=== PATIENT | female | born 1950 | race Caucasian/White ===

== ENCOUNTER 2023-04-11 17:48 | Emergency (ER) | payer MEDICARE, OTHER, SELFPAY ==
[2023-04-11] VITALS (26 sets, daily range): BP systolic 155–212; BP diastolic 80–126; PULSE 60–75; RESP 9–30; TEMP 36.6; O2SAT 98–100; BMI 18.8
--- NOTE | 2023-04-11 17:56 | ECG_ITS ---
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
--- NOTE | 2023-04-11 18:31 | CT_ITS ---
The [address] [address] Patient Name: SYED CHAVEZ MRN: [id number] date: 1950 Sex: F Assigned Patient Location: ER Current Patient Location: .[facility] Accession/Order Number: [id number] Exam Date: 04/11/2023 19:08 Report Date: 04/11/2023 21:03 At the request of: JARON RAMOS Procedure: CT angio abdomen pelvis EXAM: CTA ABDOMEN AND PELVIS WITH IV CONTRAST DATE OF EXAM: 04/11/2023 7:08 PM EDT HISTORY: midline abdominal pain in a 72-year-old female with right lower quadrant pain right flank pain sternal pain which has subsided patient has had a left mastectomy with left breast reconstruction with cholecystectomy. COMPARISON: 05/09/2021 CT abdomen pelvis with contrast. TECHNIQUE: CTA examination of the abdomen and pelvis was performed with the intravenous administration of IV contrast. Multiphasic technique is used with arterial, venous phases. CT dose lowering techniques were used, to include: automated exposure control, adjustment for patient size, and/or use of iterative reconstruction. MIP images performed of the aorta. Contrast: 100 mL of Omnipaque 350. FINDINGS: CTA Aorta: Ascending aorta: Not in the Field of VIew Aortic arch: Not in the Field of VIew Descending thoracic aorta: Not in the Field of VIew Abdominal aorta: Normal. Celiac artery: Patent. SMA: There is a focal area of stenosis involving the proximal SMA seen on sagittal image 67 of series 8. However, the SMA otherwise appears fully patent. YASMIN: Patent. Renal arteries: Patent. Bilateral common iliacs: Normal. Vascular calcifications present throughout the course of the aorta. CTA Abdomen: Lines and Tubes: None Lower Chest: Normal Free Air: None. Liver: Normal Gallbladder: Removed Common Bile Duct: Normal Pancreas: Normal Spleen: Normal Adrenal Glands: Right: Normal Left: Normal Kidneys: Right Kidney: The right kidney demonstrates an extrarenal pelvis. Right Ureter: Normal. Left Kidney: Extrarenal pelvis. Left Ureter: Normal. GI Tract: Distal Esophagus: Normal. Stomach: Decompressed Small Bowel: Fluid-filled small bowel measures within normal limits. Appendix: Normal on coronal image 82 of series 7 Large Bowel: There is moderate retention of stool. Mesentery/Peritoneum: Normal Vasculature: Aorta: Normal. IVC: Normal. Sunny Vein: Normal. CTA Pelvis: Retroperitoneum: Normal Abdominal/Pelvic Wall: Normal Bladder: Decompressed Reproductive: Hysterectomy Musculoskeletal: There is approximately 5 mm of anterolisthesis of L5 onto S1. Age-appropriate degenerative changes are present. Free Fluid: None. IMPRESSION: 1. Fluid-filled small bowel. Please correlate for enteritis. 2. No aortic injury. 3. 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 Otherwise unremarkable CTA of the aorta and mesenteric vessels. 4. Hysterectomy. 5. Normal appendix. 6. Cholecystectomy. 7. Grade 1 anterolisthesis of L5 on S1.. Electronically authenticated by: JOHN HOUSTON Date: 04/11/2023 21:03
--- NOTE | 2023-04-11 18:32 | ED.ABDPAIN1 ---
Documented by User: Nitin Farooq 04/11/23 19:01 HPI - Abdominal Pain General Chief Complaint: Abdominal Pain Stated Complaint: ABDOMINAL PAIN Time Seen by Provider: 04/11/23 18:22 Source: patient Mode of arrival: ambulance History of Present Illness HPI narrative: patient experienced sudden onset, severe midline abdominal pain extending from her pubis to the upper mid abdomen about an hour ago. She was doubled up for about 10 minutes while EMS was called and arrived. On EMS arrival her pain suddenly decreased and by the time she arrived to our ED the pain had subsided. She had a similar episoe a few months ago and called [address] [place] had pulled over. The pain once again had subsided so she refused transport to [facility] ED. PMHx - HTN for which she sees cardiology Her BP is very high in the ED today Related Data Home Medications Medication Instructions Recorded Confirmed atorvastatin 80 mg tablet 80 mg PO DAILY 04/11/23 04/11/23 carvedilol 25 mg tablet 25 mg PO BID 04/11/23 04/11/23 hydralazine 50 mg tablet 50 mg PO BID 04/11/23 04/11/23 potassium chloride 20 mEq 20 meq PO QAM 04/11/23 04/11/23 tablet,extended release spironolactone 25 mg tablet 12.5 mg PO DAILY PRN blood pressure 04/11/23 04/11/23 Allergies Allergy/AdvReac Type Severity Reaction Status Date / Time Sulfa (Sulfonamide Allergy Severe Verified 04/11/23 17:50 Antibiotics) [facility] Medical History (Updated 04/11/23 @ 22:10 by Bert Littlejohn MD) Surgical History (Updated 04/11/23 @ 17:55 by Radha Mcfadden) Exam Narrative Exam Narrative: Nurses notes and vital signs reviewed and patient is not hypoxic. afebrile General: Well-appearing and in no apparent distress. Skin: Warm, dry, no pallor noted. No rash. Head: Normocephalic, atraumatic. Eye: Pupils are equal, round and EOMI. No scleral icterus. Cardiovascular: Regular Rate and Rhythm without murmur, gallop or rub. Respiratory: No accessory muscle use or respiratory distress. Lungs are clear to auscultation, no wheezing, rales or rhonchi Back: No CVA tenderness Musculoskeletal: normal ROM, no calf or popliteal tenderness, no lower extremity edema/swelling GI: Abdomen is soft, non-distended. Normal bowel sounds. No pulsatile mass appreciated. No tenderness to palpation. No rebound, guarding, or rigidity noted. Neurological: A&O x4. No cranial nerve dysfunction observed. No truncal ataxia. Moves all extremities. Sensation intact. Psychiatric: Cooperative and interactive. Normal mood and affect. Constitutional Vital Signs - 24 hr 04/11/23 17:50 04/11/23 17:56 04/11/23 17:57 Temperature 97.8 F Pulse Rate 61 70 Pulse Rate [Monitor] 62 Respiratory Rate 20 16 30 H Blood Pressure 198/110 H Blood Pressure [Right Arm] 185/80 H Pulse Oximetry 98 100 99 Oxygen Delivery Method Room Air 04/11/23 17:57 04/11/23 18:00 04/11/23 18:30 Temperature Pulse Rate 62 62 63 Pulse Rate [Monitor] Respiratory Rate 19 16 18 Blood Pressure 195/114 H 188/104 H Blood Pressure [Right Arm] Pulse Oximetry 99 Oxygen Delivery Method 04/11/23 18:43 04/11/23 18:30 04/11/23 18:45 Temperature Pulse Rate 60 64 Pulse Rate [Monitor] Respiratory Rate 21 17 Blood Pressure 188/104 H 188/104 H 183/105 H Blood Pressure [Right Arm] Pulse Oximetry 99 99 Oxygen Delivery Method 04/11/23 18:45 04/11/23 19:00 04/11/23 19:46 Temperature Pulse Rate 68 67 Pulse Rate [Monitor] Respiratory Rate 23 21 Blood Pressure 183/105 H 179/109 H 212/115 H Blood Pressure [Right Arm] Pulse Oximetry Oxygen Delivery Method 04/11/23 19:47 04/11/23 20:01 04/11/23 19:47 Temperature Pulse Rate 69 68 Pulse Rate [Monitor] Respiratory Rate 10 L 9 L Blood Pressure 206/101 H 188/100 H 206/101 H Blood Pressure [Right Arm] Pulse Oximetry Oxygen Delivery Method 04/11/23 20:00 04/11/23 20:06 04/11/23 20:10 Temperature Pulse Rate 65 63 61 Pulse Rate [Monitor] Respiratory Rate 13 13 16 Blood Pressure 188/100 H 201/97 H 205/126 H Blood Pressure [Right Arm] Pulse Oximetry Oxygen Delivery Method 04/11/23 20:28 04/11/23 20:10 04/11/23 20:31 Temperature Pulse Rate 74 66 Pulse Rate [Monitor] Respiratory Rate 18 18 Blood Pressure 205/126 H 188/98 H Blood Pressure [Right Arm] 208/90 H Pulse Oximetry Oxygen Delivery Method 04/11/23 20:40 04/11/23 20:50 04/11/23 21:00 Temperature Pulse Rate 71 69 66 Pulse Rate [Monitor] Respiratory Rate 16 18 15 Blood Pressure 193/96 H 197/93 H 196/104 H Blood Pressure [Right Arm] Pulse Oximetry Oxygen Delivery Method 04/11/23 21:33 04/11/23 21:00 04/11/23 21:31 Temperature Pulse Rate 69 Pulse Rate [Monitor] Respiratory Rate Blood Pressure 202/100 H 196/104 H Blood Pressure [Right Arm] Pulse Oximetry Oxygen Delivery Method 04/11/23 21:34 04/11/23 21:34 04/11/23 21:34 Temperature Pulse Rate 69 63 75 Pulse Rate [Monitor] Respiratory Rate 15 16 17 Blood Pressure 202/100 H 202/100 H Blood Pressure [Right Arm] Pulse Oximetry Oxygen Delivery Method 04/11/23 21:40 04/11/23 21:40 04/11/23 21:50 Temperature Pulse Rate 65 65 67 Pulse Rate [Monitor] Respiratory Rate 15 15 22 Blood Pressure 177/94 H 177/94 H 177/91 H Blood Pressure [Right Arm] Pulse Oximetry Oxygen Delivery Method Course Vital Signs Vital signs: Vital Signs Temperature 97.8 F 04/11/23 17:50 Pulse Rate 62 04/11/23 17:50 Respiratory Rate 20 04/11/23 17:50 Blood Pressure 185/80 H 04/11/23 17:50 Pulse Oximetry 98 04/11/23 17:50 Oxygen Delivery Method Room Air 04/11/23 17:50 Temperature 97.8 F 04/11/23 17:50 Pulse Rate 67 04/11/23 21:50 Respiratory Rate 22 04/11/23 21:50 Blood Pressure 177/91 H 04/11/23 21:50 Pulse Oximetry 99 04/11/23 18:45 Oxygen Delivery Method Room Air 04/11/23 17:50 MDM - Abdominal Pain MDM Narrative Medical decision making narrative: patient's blood pressure is very high. Peripheral IV was ordered to be established with the patient receive IV Vasotec. I also want her to go for CTA scanning of the abdomen & pelvis. blood was also drawn for testing. CBC normal. CMP notable for slightly increased BUN and Cr, otherwise normal. CTA pending. Patient signed out to Dr Littlejohn at 7pm shift change. Lab Data Attestation: I reviewed the patient's lab results. Labs: Lab Results 04/11/23 Range/Units 18:00 WBC 5.6 (4.0-11.0) 10^3/uL RBC 4.01 L (4.20-5.40) 10^6/uL Hgb 12.0 (12.0-16.0) g/dL Hct 36.6 (36.0-48.0) % MCV 91.3 (81.0-99.0) fL MCH 29.9 (26.7-34.0) pg MCHC 32.8 (29.9-35.2) g/dL RDW 13.2 (11.0-15.0) % Plt Count 192 (150-450) 10^3/uL MPV 10.8 (9.5-13.5) fL Neut % (Auto) 54.0 (43.0-75.0) % Lymph % (Auto) 33.9 (20.5-60.0) % [place] % (Auto) 8.9 (1.7-12.0) % Eos % (Auto) 2.3 (0.9-7.0) % Baso % (Auto) 0.5 (0.2-2.0) % Neut # (Auto) 3.0 (1.4-6.5) 10^3/uL Lymph # (Auto) 1.9 (1.2-3.8) 10^3/uL [place] # (Auto) 0.5 (0.3-0.8) 10^3/uL Eos # (Auto) 0.1 (0.0-0.7) 10^3/uL Baso # (Auto) 0.0 (0.0-0.1) 10^3/uL Abs Immat Gran (auto) 0.02 (0.00-0.03) 10^3/uL Imm/Tot Granulo (auto) 0.4 (0.0-0.5) % Sodium 143 (136-145) mmol/L Potassium 3.9 (3.5-5.1) mmol/L Chloride 108 H (98-107) mmol/L Carbon Dioxide 25.1 (21.0-32.0) mmol/L Anion Gap 13.8 BUN 21.0 H (7.0-18.0) mg/dL Creatinine 1.15 H (0.55-1.02) mg/dL Est GFR ( Amer) 56 L (>=60) Est GFR (Non-Af Amer) 47 L (>=60) BUN/Creatinine Ratio 18.3 Glucose 86 (74-106) mg/dL Calcium 8.9 (8.5-10.1) mg/dL Total Bilirubin 0.5 (0.2-1.0) mg/dL AST 70 H (15-37) U/L ALT 55 (14-59) U/L Alkaline Phosphatase 82 (46-116) U/L Troponin I High Sens 4.9 (4.0-51.3) pg/mL Total Protein 7.1 (6.4-8.2) g/dL Albumin 3.8 (3.4-5.0) g/dL Globulin 3.3 g/dL Albumin/Globulin Ratio 1.2 Lipase 90.0 (73.0-393.0) U/L ECG Data Interpretation: EKG interpretation: Emergency Department physician interpretation. Normal sinus rhythm at 60bpm. Normal axis, normal intervals and non-specific ST changes without ST segment elevation or deep depression. Discharge Plan Discharge Chief Complaint: Abdominal Pain Clinical Impression: Abdominal pain, Hypertension Patient Disposition: Home, Self-Care Prescriptions / Home Meds: No Action atorvastatin 80 mg tablet 80 mg PO DAILY carvedilol 25 mg tablet 25 mg PO BID hydralazine 50 mg tablet 50 mg PO BID potassium chloride 20 mEq tablet extended release 20 meq PO QAM spironolactone 25 mg tablet 12.5 mg PO DAILY PRN (Reason: blood pressure) Instructions: Abdominal Pain (ED), Hypertension (ED) Additional Instructions: have your blood pressure rechecked tomorrow and follow up with your doctor next week for recheck Stand Alone Forms: Portal Instructions Referrals: Cele Frost MD [Primary Care Provider] - 1 week Documented by User: Bert Littlejohn MD 04/11/23 22:10 HPI - Abdominal Pain General Chief Complaint: Abdominal Pain Stated Complaint: ABDOMINAL PAIN Time Seen by Provider: 04/11/23 18:22 Related Data Home Medications Medication Instructions Recorded Confirmed atorvastatin 80 mg tablet 80 mg PO DAILY 04/11/23 04/11/23 carvedilol 25 mg tablet 25 mg PO BID 04/11/23 04/11/23 hydralazine 50 mg tablet 50 mg PO BID 04/11/23 04/11/23 potassium chloride 20 mEq 20 meq PO QAM 04/11/23 04/11/23 tablet,extended release spironolactone 25 mg tablet 12.5 mg PO DAILY PRN blood pressure 04/11/23 04/11/23 Allergies Allergy/AdvReac Type Severity Reaction Status Date / Time Sulfa (Sulfonamide Allergy Severe Verified 04/11/23 17:50 Antibiotics) [facility] Medical History (Updated 04/11/23 @ 22:10 by Bert Littlejohn MD) Surgical History (Updated 04/11/23 @ 17:55 by Radha Mcfadden) Exam Constitutional Vital Signs - 24 hr 04/11/23 17:50 04/11/23 17:56 04/11/23 17:57 Temperature 97.8 F Pulse Rate 61 70 Pulse Rate [Monitor] 62 Respiratory Rate 20 16 30 H Blood Pressure 198/110 H Blood Pressure [Right Arm] 185/80 H Pulse Oximetry 98 100 99 Oxygen Delivery Method Room Air 04/11/23 17:57 04/11/23 18:00 04/11/23 18:30 Temperature Pulse Rate 62 62 63 Pulse Rate [Monitor] Respiratory Rate 19 16 18 Blood Pressure 195/114 H 188/104 H Blood Pressure [Right Arm] Pulse Oximetry 99 Oxygen Delivery Method 04/11/23 18:43 04/11/23 18:30 04/11/23 18:45 Temperature Pulse Rate 60 64 Pulse Rate [Monitor] Respiratory Rate 21 17 Blood Pressure 188/104 H 188/104 H 183/105 H Blood Pressure [Right Arm] Pulse Oximetry 99 99 Oxygen Delivery Method 04/11/23 18:45 04/11/23 19:00 04/11/23 19:46 Temperature Pulse Rate 68 67 Pulse Rate [Monitor] Respiratory Rate 23 21 Blood Pressure 183/105 H 179/109 H 212/115 H Blood Pressure [Right Arm] Pulse Oximetry Oxygen Delivery Method 04/11/23 19:47 04/11/23 20:01 04/11/23 19:47 Temperature Pulse Rate 69 68 Pulse Rate [Monitor] Respiratory Rate 10 L 9 L Blood Pressure 206/101 H 188/100 H 206/101 H Blood Pressure [Right Arm] Pulse Oximetry Oxygen Delivery Method 04/11/23 20:00 04/11/23 20:06 04/11/23 20:10 Temperature Pulse Rate 65 63 61 Pulse Rate [Monitor] Respiratory Rate 13 13 16 Blood Pressure 188/100 H 201/97 H 205/126 H Blood Pressure [Right Arm] Pulse Oximetry Oxygen Delivery Method 04/11/23 20:28 04/11/23 20:10 04/11/23 20:31 Temperature Pulse Rate 74 66 Pulse Rate [Monitor] Respiratory Rate 18 18 Blood Pressure 205/126 H 188/98 H Blood Pressure [Right Arm] 208/90 H Pulse Oximetry Oxygen Delivery Method 04/11/23 20:40 04/11/23 20:50 04/11/23 21:00 Temperature Pulse Rate 71 69 66 Pulse Rate [Monitor] Respiratory Rate 16 18 15 Blood Pressure 193/96 H 197/93 H 196/104 H Blood Pressure [Right Arm] Pulse Oximetry Oxygen Delivery Method 04/11/23 21:33 04/11/23 21:00 04/11/23 21:31 Temperature Pulse Rate 69 Pulse Rate [Monitor] Respiratory Rate Blood Pressure 202/100 H 196/104 H Blood Pressure [Right Arm] Pulse Oximetry Oxygen Delivery Method 04/11/23 21:34 04/11/23 21:34 04/11/23 21:34 Temperature Pulse Rate 69 63 75 Pulse Rate [Monitor] Respiratory Rate 15 16 17 Blood Pressure 202/100 H 202/100 H Blood Pressure [Right Arm] Pulse Oximetry Oxygen Delivery Method 04/11/23 21:40 04/11/23 21:40 04/11/23 21:50 Temperature Pulse Rate 65 65 67 Pulse Rate [Monitor] Respiratory Rate 15 15 22 Blood Pressure 177/94 H 177/94 H 177/91 H Blood Pressure [Right Arm] Pulse Oximetry Oxygen Delivery Method Course Vital Signs Vital signs: Vital Signs Temperature 97.8 F 04/11/23 17:50 Pulse Rate 62 04/11/23 17:50 Respiratory Rate 20 04/11/23 17:50 Blood Pressure 185/80 H 04/11/23 17:50 Pulse Oximetry 98 04/11/23 17:50 Oxygen Delivery Method Room Air 04/11/23 17:50 Temperature 97.8 F 04/11/23 17:50 Pulse Rate 67 04/11/23 21:50 Respiratory Rate 22 04/11/23 21:50 Blood Pressure 177/91 H 04/11/23 21:50 Pulse Oximetry 99 04/11/23 18:45 Oxygen Delivery Method Room Air 04/11/23 17:50 MDM - Abdominal Pain MDM Narrative Medical decision making narrative: patient's blood pressure is very high. Peripheral IV was ordered to be established with the patient receive IV Vasotec. I also want her to go for CTA scanning of the abdomen & pelvis. blood was also drawn for testing. CBC normal. CMP notable for slightly increased BUN and Cr, otherwise normal. CTA pending. Patient signed out to Dr Littlejohn at 7pm shift change. care transferred at change of shift. CTA abdomen pending. CTA return without findings to explain her acute abdominal pain that resolved. Demonstrated mod. constipation and proximal stenosis of SMA but otherwise free flow through the artery and no finding of SMA syndrome. Patient BP treated with additional doses of Hydralazine. Patient's BP is now 170 systolic. she remains asymptomatic and will take her regular BP meds tonight when she gets home Lab Data Labs: Lab Results 04/11/23 Range/Units 18:00 WBC 5.6 (4.0-11.0) 10^3/uL RBC 4.01 L (4.20-5.40) 10^6/uL Hgb 12.0 (12.0-16.0) g/dL Hct 36.6 (36.0-48.0) % MCV 91.3 (81.0-99.0) fL MCH 29.9 (26.7-34.0) pg MCHC 32.8 (29.9-35.2) g/dL RDW 13.2 (11.0-15.0) % Plt Count 192 (150-450) 10^3/uL MPV 10.8 (9.5-13.5) fL Neut % (Auto) 54.0 (43.0-75.0) % Lymph % (Auto) 33.9 (20.5-60.0) % [place] % (Auto) 8.9 (1.7-12.0) % Eos % (Auto) 2.3 (0.9-7.0) % Baso % (Auto) 0.5 (0.2-2.0) % Neut # (Auto) 3.0 (1.4-6.5) 10^3/uL Lymph # (Auto) 1.9 (1.2-3.8) 10^3/uL [place] # (Auto) 0.5 (0.3-0.8) 10^3/uL Eos # (Auto) 0.1 (0.0-0.7) 10^3/uL Baso # (Auto) 0.0 (0.0-0.1) 10^3/uL Abs Immat Gran (auto) 0.02 (0.00-0.03) 10^3/uL Imm/Tot Granulo (auto) 0.4 (0.0-0.5) % Sodium 143 (136-145) mmol/L Potassium 3.9 (3.5-5.1) mmol/L Chloride 108 H (98-107) mmol/L Carbon Dioxide 25.1 (21.0-32.0) mmol/L Anion Gap 13.8 BUN 21.0 H (7.0-18.0) mg/dL Creatinine 1.15 H (0.55-1.02) mg/dL Est GFR ( Amer) 56 L (>=60) Est GFR (Non-Af Amer) 47 L (>=60) BUN/Creatinine Ratio 18.3 Glucose 86 (74-106) mg/dL Calcium 8.9 (8.5-10.1) mg/dL Total Bilirubin 0.5 (0.2-1.0) mg/dL AST 70 H (15-37) U/L ALT 55 (14-59) U/L Alkaline Phosphatase 82 (46-116) U/L Troponin I High Sens 4.9 (4.0-51.3) pg/mL Total Protein 7.1 (6.4-8.2) g/dL Albumin 3.8 (3.4-5.0) g/dL Globulin 3.3 g/dL Albumin/Globulin Ratio 1.2 Lipase 90.0 (73.0-393.0) U/L Discharge Plan Discharge Chief Complaint: Abdominal Pain Clinical Impression: Abdominal pain, Hypertension Patient Disposition: Home, Self-Care Prescriptions / Home Meds: No Action atorvastatin 80 mg tablet 80 mg PO DAILY carvedilol 25 mg tablet 25 mg PO BID hydralazine 50 mg tablet 50 mg PO BID potassium chloride 20 mEq tablet extended release 20 meq PO QAM spironolactone 25 mg tablet 12.5 mg PO DAILY PRN (Reason: blood pressure) Instructions: Abdominal Pain (ED), Hypertension (ED) Additional Instructions: have your blood pressure rechecked tomorrow and follow up with your doctor next week for recheck Stand Alone Forms: Portal Instructions Referrals: Cele Frost MD [Primary Care Provider] - 1 week
[2023-04-11 18:40] LABS: Basophils Percent Auto 0.5 % (0.2-2.0); Eosinophils Absolute Auto 0.1 10^3/uL (0.0-0.7); Eosinophils Percent Auto 2.3 % (0.9-7.0); Hematocrit 36.6 % (36.0-48.0); Immature Granulocytes Abs Auto 0.02 10^3/uL (0.00-0.03); Immature Granulocytes Pct Auto 0.4 % (0.0-0.5); Lymphocytes Absolute Auto 1.9 10^3/uL (1.2-3.8); Lymphocytes Percent Auto 33.9 % (20.5-60.0); Mean Corpuscular HGB Conc 32.8 g/dL (29.9-35.2); Mean Corpuscular Hemoglobin 29.9 pg (26.7-34.0); Mean Corpuscular Volume 91.3 fL (81.0-99.0); Mean Platelet Volume 10.8 fL (9.5-13.5); Monocytes Absolute Auto 0.5 10^3/uL (0.3-0.8); Monocytes Percent Auto 8.9 % (1.7-12.0); Platelet Count 192 10^3/uL (150-450); Red Blood Count 4.01 10^6/uL (4.20-5.40); Red Cell Distribution Width 13.2 % (11.0-15.0); White Blood Count 5.6 10^3/uL (4.0-11.0)
[2023-04-11] MEDS: ENALAPRILAT DIHYDRATE 1.25 MG/ML VIAL IV (18:43)
[2023-04-11 18:52] LABS: Alanine Aminotransferase 55 U/L (14-59); Albumin Globulin Ratio 1.2; Albumin Level 3.8 g/dL (3.4-5.0); Alkaline Phosphatase 82 U/L (46-116); Anion Gap 13.8; Aspartate Amino Transferase 70 U/L (15-37); BUN Creatinine Ratio 18.3; Bilirubin Total 0.5 mg/dL (0.2-1.0); Calcium 8.9 mg/dL (8.5-10.1); Carbon Dioxide 25.1 mmol/L (21.0-32.0); Chloride 108 mmol/L (98-107); Estimated GFR (African America 56 (>=60); Estimated GFR (Non-African Ame 47 (>=60); Globulin 3.3 g/dL; Glucose 86 mg/dL (74-106); Potassium 3.9 mmol/L (3.5-5.1); Sodium 143 mmol/L (136-145); Total Protein 7.1 g/dL (6.4-8.2)
[2023-04-11 19:25] LABS: Troponin I High Sensitivity 4.9 pg/mL (4.0-51.3)
[2023-04-11] MEDS: HYDRALAZINE HCL 20 MG/ML VIAL 5 MG IVP ×2 (20:01→21:33)
[2023-04-11] MEDS: ACETAMINOPHEN 500 MG TABLET 1000 MG PO (21:32)
== END 2023-04-11 22:29 | disposition home or self-care (01) ==
PROVIDERS: Emergency Medicine; Emergency Provider Internal Medicine; PCP Family Medicine
DX: R10.9 Unspecified abdominal pain (principal); I10 Essential (primary) hypertension; Z79.899 Other long term (current) drug therapy
CPT/HCPCS: 36415; 74174; 80053; 83690; 84484; 85025; 93005; 96374; 96375; 96376; 99285; Q9967

== ENCOUNTER 2023-05-26 11:54 | Outpatient (OUT) | payer MEDICARE, OTHER, SELFPAY ==
[2023-05-26 12:20] LABS: Basophils Percent Auto 0.6 % (0.2-2.0); Eosinophils Absolute Auto 0.2 10^3/uL (0.0-0.7); Eosinophils Percent Auto 2.9 % (0.9-7.0); Hematocrit 38.5 % (36.0-48.0); Hemoglobin 12.4 g/dL (12.0-16.0); Immature Granulocytes Abs Auto 0.02 10^3/uL (0.00-0.03); Immature Granulocytes Pct Auto 0.3 % (0.0-0.5); Lymphocytes Absolute Auto 1.6 10^3/uL (1.2-3.8); Lymphocytes Percent Auto 25.4 % (20.5-60.0); Mean Corpuscular HGB Conc 32.2 g/dL (29.9-35.2); Mean Corpuscular Hemoglobin 29.5 pg (26.7-34.0); Mean Corpuscular Volume 91.7 fL (81.0-99.0); Mean Platelet Volume 10.1 fL (9.5-13.5); Monocytes Absolute Auto 0.4 10^3/uL (0.3-0.8); Monocytes Percent Auto 6.2 % (1.7-12.0); Neutrophils Percent Auto 64.6 % (43.0-75.0); Platelet Count 202 10^3/uL (150-450); Red Cell Distribution Width 13.2 % (11.0-15.0); White Blood Count 6.3 10^3/uL (4.0-11.0)
[2023-05-26 13:11] LABS: Free T4 1.01 ng/dL (0.76-1.46)
[2023-05-26 13:17] LABS: Anion Gap 12.6; BUN Creatinine Ratio 18.3; Calcium 8.8 mg/dL (8.5-10.1); Carbon Dioxide 27.7 mmol/L (21.0-32.0); Chloride 106 mmol/L (98-107); Estimated GFR (African America 56 (>=60); Estimated GFR (Non-African Ame 47 (>=60); Glucose 114 mg/dL (74-106); Potassium 4.3 mmol/L (3.5-5.1); Sodium 142 mmol/L (136-145)
== END 2023-05-26 11:55 | disposition home or self-care (01) ==
LOC: LAB 11:56
PROVIDERS: PCP Family Medicine; Visit Provider Family Medicine
DX: I10 Essential (primary) hypertension (principal); R53.83 Other fatigue
CPT/HCPCS: 36415; 80048; 84439; 84443; 85025

== ENCOUNTER 2023-07-27 12:41 | Outpatient (OUT) | payer MEDICARE, OTHER, SELFPAY ==
[2023-07-27 13:00] LABS: Hematocrit 37.9 % (36.0-48.0); Hemoglobin 12.4 g/dL (12.0-16.0); Mean Corpuscular HGB Conc 32.7 g/dL (29.9-35.2); Mean Corpuscular Hemoglobin 30.2 pg (26.7-34.0); Mean Corpuscular Volume 92.2 fL (81.0-99.0); Mean Platelet Volume 9.7 fL (9.5-13.5); Platelet Count 203 10^3/uL (150-450); Red Blood Count 4.11 10^6/uL (4.20-5.40); Red Cell Distribution Width 12.8 % (11.0-15.0); White Blood Count 4.6 10^3/uL (4.0-11.0)
[2023-07-27 14:05] LABS: Alanine Aminotransferase 37 U/L (14-59); Albumin Globulin Ratio 1.2; Albumin Level 3.9 g/dL (3.4-5.0); Alkaline Phosphatase 61 U/L (46-116); Anion Gap 10.3; Aspartate Amino Transferase 23 U/L (15-37); Bilirubin Total 0.6 mg/dL (0.2-1.0); Calcium 9.2 mg/dL (8.5-10.1); Carbon Dioxide 28.9 mmol/L (21.0-32.0); Chloride 106 mmol/L (98-107); Estimated GFR (African America >60 (>=60); Estimated GFR (Non-African Ame 50 (>=60); Globulin 3.3 g/dL; Glucose 93 mg/dL (74-106); Magnesium 1.9 mg/dL (1.8-2.4); Phosphorus 3.5 mg/dL (2.6-4.7); Potassium 4.2 mmol/L (3.5-5.1); Sodium 141 mmol/L (136-145); Total Protein 7.2 g/dL (6.4-8.2)
== END 2023-07-27 12:42 | disposition home or self-care (01) ==
LOC: LAB 12:43
PROVIDERS: PCP Family Medicine; Visit Provider Internal Medicine Nephrology
DX: I12.9 Hypertensive chronic kidney disease with stage 1 through stage 4 chronic kidney disease, or unspecified chronic kidney disease (principal); N18.31 Chronic kidney disease, stage 3a; E26.9 Hyperaldosteronism, unspecified; E87.6 Hypokalemia; E55.9 Vitamin D deficiency, unspecified; E83.42 Hypomagnesemia; E78.5 Hyperlipidemia, unspecified
CPT/HCPCS: 36415; 80053; 82306; 83735; 84100; 85027

== ENCOUNTER 2023-08-03 08:58 | Outpatient (OUT) | payer MEDICARE, OTHER, SELFPAY ==
--- NOTE | 2023-08-03 09:05 | US_ITS ---
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 TECHNIQUE: Ultrasound examination was performed of the kidneys and bladder. FINDINGS: RIGHT KIDNEY: Dilated renal pelvis and lower pole calyces. A few small nonobstructing stones. Height: 3.4 cm Length: 10.9 cm Width: 4.4 cm Right Renal Artery Proximal PSV: 87.1 cm/s Proximal EDV: 20.4 cm/s Mid PSV: 87.1 cm/s Mid EDV: 28.2 cm/s Distal PSV: 68.5 cm/s Distal EDV: 24.6 cm/s Right Arcuate Artery Superior PSV: 51.9 cm/s Superior EDV: Middle PSV: Middle EDV: Inferior PSV: Inferior EDV: LEFT KIDNEY: Contains 2 separate benign-appearing cysts. Height: 5.4 cm Length: 10.0 cm Width: 5.0 cm Left Renal Artery Proximal PSV: 97.0 cm/s Proximal EDV: 15.8 cm/s Mid PSV: 92.6 cm/s Mid EDV: 22.4 cm/s Distal PSV: 94.8 cm/s Distal EDV: 22.4 cm/s Left Arcuate Artery Superior PSV: 27.2 cm/s Superior EDV: 12.4 cm/s Middle PSV: 43.8 cm/s Middle EDV: 15.9 cm/s Inferior PSV: 31.6 cm/s Inferior EDV: 13.3 cm/s Aorta PSV: 102 cm/s Aorta EDV: 24 cm/s OTHER: Unremarkable urinary bladder. US/US renal doppler IMPRESSION: 1. Moderate right hydronephrosis favoring chronic rather than acute. 2. Nonobstructing right nephrolithiasis. 3. Incidental benign-appearing left renal cysts. 4. Bilateral renal arterial flow as detailed above; no significantly elevated resistive index. Electronically authenticated by: BUCK AGUIRRE Date: 08/06/2023 11:43
== END 2023-08-03 08:59 | disposition home or self-care (01) ==
LOC: US 08:58
PROVIDERS: PCP Family Medicine; Visit Provider Internal Medicine Nephrology
DX: E26.9 Hyperaldosteronism, unspecified (principal); N28.1 Cyst of kidney, acquired; N13.30 Unspecified hydronephrosis; N20.0 Calculus of kidney; N18.30 Chronic kidney disease, stage 3 unspecified
CPT/HCPCS: 76775; 93975

== ENCOUNTER 2023-08-24 10:11 | Outpatient (OUT) | payer MEDICARE, OTHER, SELFPAY ==
--- NOTE | 2023-08-24 10:18 | CT_ITS ---
The [address] [address] Patient Name: SYED CHAVEZ MRN: [id number] date: 1950 Sex: F Assigned Patient Location: CT Current Patient Location: CT Accession/Order Number: [id number] Exam Date: 08/24/2023 10:30 Report Date: 08/24/2023 11:35 At the request of: BEN ANGEL Procedure: CT abdomen pelvis wo con CT abdomen pelvis wo con, 08/24/2023 10:30 AM EST INDICATION: Right Hydronephrosis COMPARISON: Prior CT of the abdomen dated 04/11/2023 and ultrasound dated 08/03/2023 TECHNIQUE: Axial images of the abdomen were obtained after the administration of IV contrast. Multiplanar reformatted images were generated and reviewed as needed. Dose reduction techniques were achieved by using automated exposure control and/or adjustment of mA and/or kV according to patient size and/or use of iterative reconstruction technique. FINDINGS: Lungs: The base of lungs is clear. No pleural effusion is noted. Liver and gallbladder: The liver is unremarkable. There is status post cholecystectomy. No enlargement of intra or extrahepatic biliary ducts. Genitourinary system: Right extrarenal pelvis. No hydronephrosis. Hypodense lesion within the midpole of the left kidney likely a cyst. No nephrolithiasis. No abnormality of the urinary bladder is noted. There is status post hysterectomy. Other solid abdominal organs: adrenal glands, pancreas, and spleen are unremarkable. Aorta: The infrarenal abdominal aorta is nonaneurysmal. Free fluid: There is no free fluid in the abdomen pelvis. Lymph node: No lymph node enlargement by size criteria is noted. Stomach and Bowel: No abnormality of the stomach is noted. No abnormality of small or large bowel is noted. Bone: There is no suspicious osteolytic or osteoblastic lesion. Grade 1 anterolisthesis of L5 on S1. Lower lumbar spine and SI joint degenerative changes. CT/CT abdomen pelvis wo con IMPRESSION: Right extrarenal pelvis. No hydronephrosis is noted. Electronically authenticated by: RAMIRO BLANCO Date: 08/24/2023 11:35
== END 2023-08-24 10:12 | disposition home or self-care (01) ==
LOC: CT 10:11
PROVIDERS: PCP Family Medicine; Visit Provider Urology
DX: N13.30 Unspecified hydronephrosis (principal)
CPT/HCPCS: 74176

== ENCOUNTER 2023-12-28 12:39 | Outpatient (OUT) | payer MEDICARE, OTHER, SELFPAY ==
--- NOTE | 2023-12-28 12:43 | MR_ITS ---
[address] [address] Patient Name: SYED CHAVEZ MRN: [id number] date: 1950 Sex: F Assigned Patient Location: MRI Current Patient Location: Accession/Order Number: [id number] Exam Date: 12/28/2023 12:58 Report Date: 12/29/2023 08:16 At the request of: LON MILLER Procedure: MR angio head wo con EXAM: MR angio head wo con CLINICAL INDICATION: Family History Cerebral Hemorrhage, Headache COMPARISON: None TECHNIQUE/PROTOCOL: 3D time of flight non contrast brain MRA performed. 3D reconstructions were performed to evaluate vascular anatomy. Carotid stenosis is reported according to NASCET criteria. Additional sagittal T1, DWI, axial GRE, axial T2, and axial FLAIR images were obtained. FINDINGS: Intracranial ICAs: Patent bilaterally from the skull base to the carotid terminus. MCAs: Normal bilaterally. ACAs: Normal bilaterally. P-Comms: Not visualized bilaterally. Vertebral arteries: Normal to the confluence with the basilar artery. Basilar artery: Normal. ceramics engineer: Normal bilaterally. Other: No restricted diffusion, midline shift, hydrocephalus, extra-axial fluid collections, or other mass effect. Normal midline structures. Multiple scattered small hyperintense T2/FLAIR periventricular and subcortical white matter foci likely reflect chronic microvascular angiopathic changes. 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 No surrounding vasogenic edema. Small suspected adjacent developmental venous anomaly. Mild scattered paranasal sinus mucosal thickening. Trace right mastoid effusion. MR/MR angio head wo con IMPRESSION: 1. No large vessel arterial occlusion, high-grade narrowing, or substantial luminal irregularity in the head. No intracranial aneurysm. 2. 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 No surrounding vasogenic edema. 3. No acute intracranial abnormality. Electronically authenticated by: YUDI SMITH Date: 12/29/2023 08:16
== END 2023-12-28 12:40 | disposition home or self-care (01) ==
LOC: MRI 12:39
PROVIDERS: PCP Family Medicine; Visit Provider Family Medicine
DX: R51.9 Headache, unspecified (principal); Z82.3 Family history of stroke; Z86.79 Personal history of other diseases of the circulatory system
CPT/HCPCS: 70544

== ENCOUNTER 2023-12-30 07:50 | Outpatient (OUT) | payer MEDICARE, OTHER, SELFPAY ==
--- OUTSIDE RECORDS SUMMARY | 2023-12-30 07:53 | XMS_ITS | CCD ---
Author Organization [facility] Care Team Providers Care Continuity Person Name Role Phone PHYSICIAN, DEFAULT Admitting Unavailable PHYSICIAN, DEFAULT Attending Unavailable PHYSICIAN, DEFAULT Admitting Unavailable PHYSICIAN, DEFAULT Attending Unavailable PHYSICIAN, DEFAULT Admitting Unavailable PHYSICIAN, DEFAULT Attending Unavailable ELTAHAWY, EHAB A Admitting Unavailable ELTAHAWY, EHAB A Attending Unavailable LON MILLER Referring Unavailable LON MILLER Primary Care Unavailable PHYSICIAN, DEFAULT Admitting Unavailable PHYSICIAN, DEFAULT Attending Unavailable LON MILLER Primary Care Unavailable ALIGIO Admitting Unavailable ALIGIO Attending Unavailable LON MILLER Primary Care Unavailable STRUSPAGE Referring Unavailable Unknown, Pcp Unavailable Unavailable Ray, Analy Unavailable Unavailable Unknown, Referring Provider Unavailable Unav ailable Lon Miller Unavailable Lon Miller MD Primary Care Provider [phone] Christian Valdez Unavailable Loi Buenrostro Unavailable Vladimir Clifton Unavailable Rene Irwin Unavailable Lidia Alarcon Unavailable Teresita Ortega Unavailable Nieves Jiménez Unavailable Lon Miller Unavailable DR LON MILLER Primary Care Unavailable ELTAHAWY, DR FOLEY Consulting Unavailable ELTAHAWY, DR FOLEY Admitting Unavailable ELTAHAWY, DR OFLEY Attending Unavailable PAUL, DR LON Sarah Primary Care Unavailable ELTAHAWY, DR FOLEY Consulting Unavailable ELTAHAWY, DR FOLEY Admitting Unavailable ELTAHAWY, DR FOLEY Attending Unavailable PAUL, DR LON Sarah Primary Care Unavailable ELTAHAWY, DR FOLEY Attending Unavailable ELTAHAWY, DR FOLEY Consulting Unavailable ELTAHAWY, DR FOLEY Admitting Unavailable PAUL, DR LON Sarah Primary Care Unavailable PAUL, DR LON Sarah Attending Unavailable CARLA, DR BUCK Concepcion Consulting Unavailable PAUL, DR LON Sarah Admitting Unavailable PAUL, DR LON Sarah Consulting Unavailable PAUL, DR LON Sarah Primary Care Unavailable VLADIMIR CLIFTON Admitting Unavailable VLADIMIR CLIFTON Attending Unavailable VLADIMIR CLIFTON Consulting Unavailable ADELA ., MEDINA Admitting Unavailable ADELA ., MEDINA Attending Unavailable MEDINA MORALES Consulting Unavailable PAUL, DR LON Sarah Primary Care Unavailable SINTIA VO Admitting Unavailable CARLA, DR BUCK Concepcion Consulting Unavailable SINTIA VO Attending Unavailable PAUL, DR LON Sarah Primary Care Unavailable SINTIA VO Consulting Unavailable MIS, DR SALDANA Admitting Unavailable MISC, DR SALDANA Attending Unavailable MISC, DR SALDANA Consulting Unavailable MILLER, DR LON Sarah Primary Care Unavailable Mallorie Guardado Unavailable Mukesh Fam Unavailable MD Lon Miller Primary Care Provider MD Mukesh Fam Attending Provider Geneva Coats Unavailable LON MILLER Primary Care Physician [phone] MD Lon Miller Primary Care Provider [phone] MD Mukesh Fam Attending Provider MD Lon Miller Attending Provider [phone] Flores Marie Attending Unavailable VLADIMIR CLIFTON Referring Unavailable IVETTE AKIEN Attending Unavailable CHAD BARILLAS Attending Unavailable Lon Miller Primary Care Unavailable Mukesh Fam Admitting Unavailable Mukesh Fam Attending Unavailable Lon Miller Attending Unavailable Lon Miller Admitting Unavailable Lon Miller Primary Care Unavailable Allergies Allergy Classification Reported Allergen(s) Allergy Type Date of Onset Reaction(s) Facility Sulfonamides (antibiotic) (4 sources) Sulfonamides (Antibiotic); Translations: [Sulfa Drugs] Drug Allergy Unknown [facility] (5 sources) Sulfonamides (Antibiotic); Translations: [SULFA (SULFONAMIDE ANTIBIOTICS)] Drug allergy (disorder) 12-31-20 [address] [facility] Repository (20 sources) linaclotide; Translations: [LINACLOTIDE] Drug Allergy 12-25-19 22 Unknown [facility] (20 sources) Sulfonamides (Antibiotic) Drug Allergy 10-11-20 12 Hives [facility] (20 sources) Sulfamethoxazole / Trimethoprim Drug Allergy upset stomach [facility] Other (1 source) linaclotide Drug Allergy [facility] Repository (15 sources) buPROPion Drug Allergy 05-28-20 21 Unknown [facility] Other (15 sources) buPROPion Drug Allergy 06-08-20 13 Unknown [facility] Other (15 sources) busPIRone Drug Allergy 05-28-20 21 Unknown [facility] Other (20 sources) Doxycycline Drug Allergy 06-15-20 13 Unknown [facility] Other (15 sources) Lisinopril Drug Allergy 05-28-20 21 Unknown [facility] Other (20 sources) methylPREDNISolone Drug Allergy 05-10-20 19 Unknown, Comment:Medrol dose pack [facility] Other (15 sources) zolpidem Drug Allergy 05-28-20 21 Unknown [facility] Other (2 sources) Sulfonamides (Antibiotic); Translations: [sulfa drugs] Drug allergy [facility] (1 source) buPROPion Drug Allergy 08-18-20 23 [facility] Repository (1 source) busPIRone Drug Allergy 08-18-20 23 [facility] Repository (1 source) Doxycycline Drug Allergy 08-18-20 23 [facility] Repository (1 source) linaclotide Drug Allergy 08-18-20 23 [facility] Repository (1 source) Lisinopril Drug Allergy 08-18-20 23 [facility] Repository (1 source) methylPREDNISolone Drug Allergy 08-18-20 23 [facility] Repository (1 source) Sulfamethoxazole Drug Allergy 08-18-20 23 [facility] Repository (1 source) Sulfonamides (Antibiotic) Drug allergy (disorder) 08-18-20 [facility] Repository (1 source) Trimethoprim Drug Allergy 08-18-20 [facility] Repository (1 source) zolpidem Drug Allergy 08-18-20 [facility] Repository Medications Current Medications Medication Drug Class(es) Dates Sig (Normalized) Sig (Original) acetaminophen 325 mg oral tablet (1 source) Start: 02-08-2021 take 2 tablets by mouth every six hours as needed acetaminophen 325 mg oral tablet ; 2 tab(s) orally every 6 hours, As needed, Pain - Mild (1-3) Quantity: 0 Refills: 0 Ordered: 08-Feb-2021 Katie Stuart Start: 08-Feb-2021 Generic Substitution Allowed amoxicillin 500 mg oral tablet (10 sources) Penicillin-class Antibacterial Start: 08-11-2023 take 1 tablet by mouth every twelve hours Amoxicillin 500 MG 1 tablet Orally Twice a day for 10 days Jul, Active Start: 06-23-2023 take 1 capsule by mo ut every twelve hours Amoxicillin 500 MG 1 capsule Orally Twice a day for 10 days Jun, Not-Taking Start: 04-29-2023 take 1 capsule by mo uth every twelve hours Amoxicillin 500 MG 1 capsule Orally Twice a day for 10 days Apr, Active Start: 01-12-2023 take 1 capsule by mo uth every eight hours Amoxicillin 500 MG 1 capsule Orally three times a day for 10 day(s) Jan, Active Start: 04-11-2022 take 1 capsule by mo uth every eight hours Amoxicillin 500 MG 1 capsule Orally three times a day for 10 day(s) Apr, Active aspirin 81 mg oral tablet (13 sources) Platelet Aggregation Inhibitor, Nonsteroidal Anti-inflammatory Drug Start: 02-14-2015 take 81 mg by mouth once daily aspirin 81 mg, Oral, Daily, Refills(s) 0, Blood Thinner Start Date: 02/14/15 Status: Ordered take 1 tablet by mouth once isabella y aspirin, enteric coated (ASPIRIN, ENTERIC COATED) 81 mg EC tablet Take 81 mg by mouth once daily. 0 Active Aspirin 81 MG TA BS Quantity: 0 Refills: 0 Ordered: 05-Mar-2021 DO Active Comment on above: Take 81 mg by mouth once daily. atorvastatin 80 mg oral tablet (20 sources) HMG-CoA Reductase Inhibitor Start: 7 take 80 mg by mouth once daily Atorvastatin Active 80 MG PO Daily July 02, 2021 11:00pm Atorvastatin Anand cium TABS Quantity: 0 Refills: 0 Ordered: 05-Mar-2021 DO Active Comment on above: Take 80 mg by mouth once daily. carvedilol 25 mg oral tablet (20 sources) alpha-Adrenergic Rudy, beta-Adrenergic Rudy Start: 01-26-2019 take 25 mg by mouth twice daily Carvedilol Active 25 MG PO Twice daily July 02, 2021 11:00pm Carvedilol TABS Quantity: 0 Refills: 0 Ordered: 05-Mar-2021 DO Active Comment on above: Take 25 mg by mouth twice daily. cefdinir 300 mg oral capsule (2 sources) Cephalosporin Antibacterial Start: take 1 capsule by mouth every twelve hours Cefdinir 300 MG 1 tablet Orally twice a day for 7 days Jul, Active cephalexin 500 mg oral capsule (1 source) Cephalosporin Antibacterial Start: take 1 capsule by mouth every twelve hours Cephalexin 500 MG 1 capsule Orally twice a day for 10 Mar, Active chlorthalidone 25 mg oral tablet (1 source) Thiazide-like Diuretic Start: 019 take 1 tablet by mouth once daily chlorthalidone 25 mg Tab 25 mg = 1 tab(s), Oral, Daily, # 30 tab(s), Refills(s) 0 Start Date: 01/27/19 Status: Ordered docusate sodium 100 mg oral capsule (1 source) take 2 capsules by mouth once daily at bedtime Colace 100 mg oral capsule ; 2 cap(s) orally once a day (at bedtime) Quantity: 0 Refills: 0 Ordered: 07-Feb-2021 Maya Sanz Generic Substitution Allowed escitalopram 5 mg oral tablet (11 sources) Serotonin Reuptake Inhibitor Start: 023 take 1 tablet by mouth every twenty-four hours take 1 tablet by carlos a th every twenty-four hours Lexapro 10 MG 1 tablet Orally Once a day Not-Taking fluconazole 150 mg oral tablet (1 source) Azole Antifungal Start: 01-20-2023 take 1 tablet by mouth once Fluconazole 150 MG 1 tablet Orally once for 10 days Jan, Active fluticasone propionate 0.05 mg/actuat metered dose nasal spray (6 sources) Corticosteroid Start: 07-20-2023 take 2 spray(s) nasal route once daily Fluticasone Propionate 50 MCG/ACT 2 sprays in each nostril Nasally Once a day for 14 Jul, Active 24 hr isosorbide mononitrate 30 mg extended release oral tablet (1 source) Nitrate Vasodilator Start: 01-27-2019 take 1 tablet by mouth once daily in the morning isosorbide mononitrate 30 mg ER Tab 30 mg = 1 tab(s), Oral, qAM, # 30 tab(s), Refills(s) 0 Start Date: 01/27/19 Status: Ordered iv contrast (will be provided with radiology test) (1 source) Start: 02-12-2022 End: 02-13-2022 iv contrast (will be provided with radiology test) CT adrenal WO/W Inject, intravenously, once for 1 dose.No IV access, insert saline lock prior to the beginning of sedation, infusion, injection of imaging exam. Discontinue saline lock post exam. If Pt. has a central line or IVAD, may access for administration according to line specific nursing protocol. Once exam is complete flush line and de-access according to line specific nursing protocol in the CT contrast administration guidelines link. 1 Each 0 02/12/2022 02/13/2022 Active Comment on above: CT adrenal WO/W Inje ct, intravenously, once for 1 dose.No IV access, insert saline lock prior to the beginning of sedation, infusion, injection of imaging exam. Discontinue saline lock post exam. If Pt. has a central line or IVAD, may access for administration according to line specific nursing protocol. Once exam is complete flush line and de-access according to line specific nursing protocol in the CT contrast administration guidelines link. losartan potassium 25 mg oral tablet (20 sources) Angiotensin 2 Receptor Rudy Start: 07-03-2021 take 25 mg by mouth twice daily Losartan Active 25 MG PO Twice daily July 02, 2021 11:00pm Start: 01-27-2019 take 1 tablet by carlos a th once daily losartan (COZAAR) 50 mg tablet Take 50 mg by mouth once daily. 1 05/11/2019 Active take 1 tablet by carlos a th every twelve hours Losartan Potassium 50 MG 1 tablet Orally twice a day Active Losartan Potassi um TABS Quantity: 0 Refills: 0 Ordered: 05-Mar-2021 DO Active Comment on above: Take 50 mg by mouth once daily. Magnesium (1 source) Start: 2022 magnesium magnesium, 400 mg Start Date: 09/08/23 Status: Ordered magnesium oxide 400 mg oral tablet (20 sources) Start: 2018 take 400 mg by mouth once daily Magnesium Oxide Active 400 MG PO Daily July 02, 2021 11:00pm Comment on above: Take 1 tablet by carlos a th. methylPREDNISolone 4 mg oral tablet (1 source) Corticosteroid Start: 2021 methylPREDNISolone 4 MG as directed Orally for daily dose take half with breakfast, half with dinner for 6 days May, Active sertraline 50 mg oral tablet (8 sources) Serotonin Reuptake Inhibitor Start: 2018 take 1 tablet by mouth once daily sertraline 50 mg Tab 50 mg = 1 tab(s), Oral, Daily, # 30 tab(s), Refills(s) 0 Start Date: 01/27/19 Status: Ordered take 1 tablet by mouth once isabella y sertraline (ZOLOFT) 25 mg tablet Take 25 mg by mouth once daily. 0 Active Comment on above: Take 25 mg by mouth once daily. Stool Softener with Laxative (1 source) Start: 01-27-2019 Stool Softener with Laxative Refill(s) 0 Start Date: 01/27/19 Status: Ordered vitamin B12 (8 sources) Vitamin B12 Start: 09-08-2023 Vitamin B12 Refills(s) 0 Start Date: 09/08/23 Status: Ordered Vitamin B12 Acti ve Completed/Discontinued Medications Medication Drug Class(es) Dates Sig (Normalized) Sig (Original) acetaminophen 325 mg / HYDROcodone bitartrate 5 mg oral tablet (2 sources) Opioid Agonist Start: 12-10-2018 End: 07-03-2021 take 1 tablet by mouth every four to six hours Hydrocodone-Aceta minophen ([place]) 5-325 mg Tablet Discontinued 1 TAB PO EVERY 4-6 HOURS 7 3 December 10, 2018 July 03, 2021 8:29am ALPRAZolam 0.25 mg oral tablet (7 sources) Benzodiazepine Start: 04-06-2018 ALPRAZolam (XANAX) 0.25 mg tablet {1 (ascorbic acid 7540 MG / polyethylene glycol 3350 15221 MG / potassium chloride 1200 MG / sodium ascorbate 62354 MG / sodium chloride 3200 MG Powder for Oral Solution) / 1 (polyethylene glycol 3350 [id number] MG / potassium chloride 1000 MG / sodium chloride 2000 MG / sodium sulfate 9000 MG Powder for Oral Solution) } Pack [Plenvu] (3 sources) Osmotic Laxative, Vitamin C Start: 05-30-2021 Plenvu 140 GM dose 1 pouch at 4pm, dose 2 pouch A & B at 11pm Orally BID for 1 days [id number]: [id number] May, Not-Taking Start: 05-30-2021 azithromycin 250 mg oral tablet (10 sources) Macrolide Antimicrobial Start: 06-12-2023 Azithromycin 250 MG 2 tablet on the first day, then 1 tablet daily for 4 days Orally Once a day for 5 day(s) Jun, Not-Taking Start: 11-27-2022 Azithromycin 2 50 MG as directed Orally 2 tabs po today, then 1 tab daily x 4 more days for 5 Nov, Not-Taking docusate sodium 50 mg / sennosides, fci 8.6 mg oral tablet (20 sources) Start: 12-17-2021 take 2 tablets by mouth once daily at bedtime SENNA PLUS 8.6-50 mg per tablet Take 2 tablets by mouth daily at bedtime. 0 12/17/2021 Active Start: 05-30-2021 Sennosides-Doc usate Sodium (Senexon-S) 8.6-50 mg tablet Active 1 TAB PO As Directed July 02, 2021 11:00pm Comment on above: Take 2 tablets by cox branson daily at bedtime. FLUoxetine 10 mg oral capsule (8 sources) Serotonin Reuptake Inhibitor Start: 05-10-2019 take 1 capsule by mouth once daily FLUoxetine (PROZAC) 10 mg capsule Take 10 mg by mouth once daily. 0 05/10/2019 Active take 1 capsule by mouth once rubin ly FLUoxetine 20 mg oral capsule ; 1 cap(s) orally once a day Quantity: 0 Refills: 0 Ordered: 07-Feb-2021 Maya Sanz Generic Substitution Allowed Comment on above: Take 10 mg by mouth once daily. hydrALAZINE hydrochloride 25 mg oral tablet (20 sources) Arteriolar Vasodilator Start: 10-01-20 take 1 tablet by mouth three times daily at mealtime hydrALAZINE (APRESOLINE) 25 mg tablet Take 25 mg by mouth three times daily with meals. 0 10/01/2021 Active take 1 tablet by carlos a th every twelve hours hydrALAZINE HCl 50 MG 1 tablet with food Orally Twice a day for 90 days Active take 1 tablet by carlos a th every twelve hours hydrALAZINE HCl 25 MG 1 tablet with food Orally Twice a day for 90 days Active hydrALAZINE HCl - 10 MG Oral Tablet Quantity: 0 Refills: 0 Ordered: 05-Mar-2021 DO Active Comment on above: Take 25 mg by mouth three times daily with meals. nebivolol 5 mg oral tablet (7 sources) take 1 tablet by mouth once daily nebivolol (BYSTOLIC) 5 mg tablet Take 5 mg by mouth once daily. 0 Active Comment on above: Take 5 mg by mouth o nce daily. 24 hr nicotine 0.875 mg/hr transdermal system (7 sources) Cholinergic Nicotinic Agonist Start: 017 apply 1 dose transdermal route once daily NICODERM CQ 21 mg/24 hr APPLY 1 PATCH EVERY DAY DIRECTED 0 04/16/2017 Active Comment on above: APPLY 1 PATCH EVERY DAY DIRECTED microencapsulated potassium chloride 20 meq extended release oral tablet (20 sources) Start: 019 KLOR-CON M20 20 mEq tablet Take 20 mEq by mouth twice daily. 1 05/02/2019 Active Start: 02-14-2015 Klor-Con M20 2 0 mEq, Oral, BID, Refills(s) 0, Prophylaxis Start Date: 02/14/15 Status: Ordered take 1 tablet by carlos a th every twenty-four hours Potassium Chloride ER 20 MEQ 1 tablet with food Orally Once a day Active Comment on above: Take 20 mEq by mouth twice daily. predniSONE 20 mg oral tablet (4 sources) Start: 06-23-2023 take 1 tablet by mouth every twelve hours prednisone 20 MG 1 tablet Orally BID for 5 days Jun, Not-Taking Start: 04-11-2022 take 1 tablet by carlos a th every twelve hours predniSONE 20 MG 1 tablet Orally 2 times a day for 5 day(s) Apr, Active Probiotic Acidophilus - (3 sources) Probiotic Acidgaldamezus - as directed Orally Not-Taking promethazine hydrochloride 25 mg oral tablet (2 sources) Phenothiazine Start: 12-10-2018 End: 07-03-2021 take 25 mg by mouth every six hours Promethazine Discontinued 25 MG PO Q6H December 10, 2018 12:00am July 03, 2021 8:29am sodium chloride 1000 mg oral tablet (4 sources) Start: 01-27-2022 take 2 tablets by mouth three times daily sodium chloride 1 gram tab Take 2 tablets by mouth three times daily. 10 tablet 0 01/27/2022 Active Start: 01-17-2022 take 2 tablets by mo uth three times daily sodium chloride 1 gram tab Take 2 tablets by mouth three times daily. 10 tablet 0 01/17/2022 Active Comment on above: Take 2 tablets by mo uth three times daily. spironolactone 25 mg oral ta blet (19 sources) Aldosterone Antagonist Start: 05-29-2021 Start: 05-29-2021 take 0.5 tablet by m outh once daily Spironolactone 25 MG 1/2 tablet Orally Once a day for 90 day(s) May, Not-Taking Comment on above: Take 25 mg by mouth once daily. 1/2 tablet as needed Problems Active Problems Problem Classification Problem Date Documented Da te Episodic/Chronic Abdominal pain (20 sources) Unspecified abdominal pain; Translations: [Generalized abdominal pain] Onset: 08-24-2015 Episodic Acute and unspecified renal failure (1 source) Acute kidney failure, unspecified; Translations: [ACUTE KIDNEY FAILURE, UNSPECIFIED] Onset: 01-28-2019 Episodic Acute cerebrovascular disease (4 sources) Subdural hemorrhage; Translations: [Chronic intracranial subdural hematoma ] 02-07-2021 Chronic Comment on above: SUBDURAL HEMORRHAGE Anxiety disorders (20 sources) Anxiety disorder, unspecified; Translations: [Generalized anxiety disorder] Onset: 09-10-2016 Chronic Calculus of urinary tract (2 sources) Kidney stone; Translations: [Calculus of kidney] Onset: 09-07-2023 Episodic Cancer of breast (7 sources) Malignant tumor of breast ; Translations: [Malignant neoplasm of unspecified site of unspecified female breast] Onset: 10-11-2012 10-07-2021 Chronic Cancer of breast (20 sources) History of malignant neoplasm of breast; Translations: [Personal history of malignant neoplasm of breast] Onset: 09-01-2022 Episodic Cardiac and circulatory congenital anomalies (7 sources) Congenital anomaly of cerebrovascular system; 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] Onset: 05-25-2018 05-25-2018 Chronic Chronic kidney disease (20 sources) Chronic kidney disease; Translations: [Chronic kidney disease stage 3] 02-07-2021 Chronic Chronic obstructive pulmonary disease and bronchiectasis (15 sources) Bronchitis; Translations: [Bronchitis, not specified as acute or chronic] Episodic Conditions associated with dizziness or vertigo (4 sources) Dizziness and giddiness; Translations: [DIZZINESS AND GIDDINESS] Onset: 12-01-2022 Episodic Coronary atherosclerosis and other heart disease (19 sources) Atherosclerotic heart disease of [place] coronary artery without angina pectoris; Translations: [Atherosclerosis of coronary artery without angina pectoris] Onset: 02-20-2015 08-31-2023 Chronic Coronary atherosclerosis and other heart disease (1 source) Coronary angioplasty status; Translations: [CORONARY ANGIOPLASTY STATUS] Onset: 01-28-2019 Episodic Deficiency and other anemia (15 sources) Nutritional anemia; Translations: [Nutritional anemia, unspecified] Episodic Disorders of lipid metabolism (20 sources) Hyperlipidemia, unspecified; Translations: [Pure hypercholesterolemia, unspecified] Onset: 10-19-2018 Chronic Essential hypertension (20 sources) Essential (primary) hypertension; Translations: [Essential hypertension] Onset: 10-19-2018 Chronic Fluid and electrolyte disorders (9 sources) Hypokalemia; Translations: [Hypokalemia] Onset: 01-28-2019 Resolved: 12-10-2021 Episodic Genitourinary symptoms and ill-defined conditions (20 sources) Dysuria; Translations: [Frequency of micturition] Onset: 09-14-2014 Episodic Headache; including migraine (15 sources) Headache; Translations: [Headache, unspecified] Episodic Hypertension with complications and secondary hypertension (20 sources) Hypertensive heart disease without heart failure; Translations: [Hypertensive heart disease] Onset: 10-01-2021 Resolved: 12-10-2021 02-07-2021 Chronic Immunizations and screening for infectious disease (20 sources) Contact with and (suspected) exposure to other viral communicable diseases; Translations: [Contact with and (suspected) exposure to other viral communicable diseases] Onset: 09-16-2021 Resolved: 09-16-2021 Episodic Influenza (20 sources) Influenza due to Influenza A virus with upper respiratory signs; Translations: [Influenza due to other identified influenza virus with other respiratory manifestations] Onset: 10-08-2017 Episodic Intracranial injury (3 sources) Hematoma of subdural space of neuraxis; Translations: [Subdural hemorrhage] Episodic Malaise and fatigue (20 sources) Other fatigue; Translations: [Fatigue] Onset: 10-20-2012 10-20-2012 Episodic Miscellaneous mental health disorders (15 sources) 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; Translations: [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] Onset: 03-29-2018 Chronic Mood disorders (1 source) Major depressive disorder, single episode, unspecified; Translations: [PATRICIA DEPRESS D/O SINGLE EPIS UNS] Onset: 09-01-2022 Chronic Mycoses (15 sources) Candidiasis; Translations: [Candidiasis, unspecified] Episodic Nausea and vomiting (20 sources) Nausea and vomiting; Translations: [Nausea with vomiting, unspecified] Episodic Nonmalignant breast conditions (5 sources) Mastodynia; Translations: [MASTODYNIA] Onset: 12-23-2022 Episodic Nutritional deficiencies (20 sources) Vitamin D deficiency; Translations: [Vitamin D deficiency, unspecified] Chronic Osteoarthritis (20 sources) Arthritis of hand; Translations: [Primary osteoarthritis, unspecified hand] Chronic Other and unspecified benign neoplasm (1 source) Adrenal adenoma; Translations: [Benign neoplasm of unspecified adrenal gland] Episodic Other circulatory disease (15 sources) Elevated blood-pressure reading without diagnosis of hypertension; Translations: [Elevated blood-pressure reading, without diagnosis of hypertension] Episodic Other connective tissue disease (15 sources) Ganglion of hand; Translations: [Ganglion, unspecified hand] Episodic Other diseases of bladder and urethra (16 sources) Overactive bladder; Translations: [Overactive bladder] 08-31-2023 Chronic Other diseases of kidney and ureters (1 source) Unspecified hydronephrosis Episodic Other diseases of kidney and ureters (2 sources) Hydronephrosis; Translations: [Unspecified hydronephrosis] Onset: 09-07-2023 Episodic Other diseases of kidney and ureters (1 source) Acquired renal cyst without neoplastic change; Translations: [Cyst of kidney, acquired] Onset: 09-07-2023 Episodic Other diseases of kidney and ureters (1 source) Cyst of kidney 09-07-2023 Episodic Other endocrine disorders (20 sources) Hyperaldosteronism; Translations: [Hyperaldosteronism, unspecified] Onset: 06-15-2019 Chronic Other endocrine disorders (8 sources) Hyperaldosteronism, unspecified; Translations: [HYPERALDOSTERONISM UNSPECIFIED] Onset: 12-10-2021 Resolved: 12-10-2021 Chronic Other gastrointestinal disorders (20 sources) Chronic idiopathic constipation; Translations: [Chronic idiopathic constipation] Chronic Other gastrointestinal disorders (15 sources) Irritable bowel syndrome characterized by constipation; Translations: [Irritable bowel syndrome with constipation] Chronic Other gastrointestinal disorders (20 sources) Constipation; Translations: [Constipation, unspecified] Onset: 06-08-2015 07-03-2021 Episodic Other injuries and conditions due to external causes (15 sources) History of fall; Translations: [History of falling] Episodic Other nutritional; endocrine; and metabolic disorders (3 sources) Hypomagnesemia; Translations: [HYPOMAGNESEMIA] Onset: 01-28-2019 Chronic Other nutritional; endocrine; and metabolic disorders (20 sources) Hypomagnesemia; Translations: [Hypomagnesemia] Chronic Other nutritional; endocrine; and metabolic disorders (15 sources) Body mass index less than 20; Translations: [Body mass index (BMI) 19.9 or less, adult] Episodic Other upper respiratory disease (15 sources) Allergic rhinitis; Translations: [Allergic rhinitis, unspecified] Onset: 02-04-2017 Chronic Other upper respiratory infections (15 sources) Chronic sinusitis; Translations: [Chronic sinusitis, unspecified] Chronic Otitis media and related conditions (20 sources) Other specified disorders of Eustachian tube, bilateral; Translations: [Unspecified nonsuppurative otitis media, right ear] Onset: 09-10-2016 Resolved: 06-02-2022 Episodic Peripheral and visceral atherosclerosis (14 sources) Insufficiency of mesenteric artery; 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] Chronic Residual codes; unclassified (15 sources) Chill; Translations: [Chills (without fever)] Episodic Residual codes; unclassified (15 sources) Tobacco user; Translations: [Tobacco use] Episodic Residual codes; unclassified (15 sources) Insomnia; Translations: [Insomnia, unspecified] Episodic Residual codes; unclassified (2 sources) Family history of cancer of colon; Translations: [Family history of malignant neoplasm of digestive organs] 07-03-2021 Episodic Residual codes; unclassified (1 source) Other specified postprocedural states; Translations: [OTHER SPECIFIED POSTPROCEDURAL STATES] Onset: 01-28-2019 Spondylosis; intervertebral disc disorders; other back problems (15 sources) Lumbosacral spondylosis without myelopathy; Translations: [Spondylosis without myelopathy or radiculopathy, lumbar region] Onset: 01-12-2019 Chronic Spondylosis; intervertebral disc disorders; other back problems (20 sources) Spasm of back muscles; Translations: [Muscle spasm of back] Onset: 07-30-2017 Episodic Substance-related disorders (11 sources) Nicotine dependence, cigarettes, uncomplicated; Translations: [Smoker] Onset: 10-19-2018 Chronic Comment on above: Added secondary to d ocumentation in Social History. Syncope (19 sources) Syncope and collapse; Translations: [Syncope and collapse] Onset: 01-28-2019 Episodic Unclassified (2 sources) ABN STRESS Onset: 10-19-2018 Unclassified (1 source) FUV; BILATERAL SDH'S 02-08-2021 Comment on above: FUV; BILATERAL SDH'S Unclassified (1 source) SDH (SUBDURAL HEMATOMA) - (S06.5X9A) 02-08-2021 Comment on above: SDH (SUBDURAL HEMATO MA) - (S06.5X9A) Unclassified (2 sources) SDH (subdural hematoma) 02-08-2021 Unclassified (1 source) Bilateral chronic intracranial subdural hematoma 02-08-2021 Unclassified (15 sources) Traumatic subdural hemorrhage with loss of consciousness status unknown, initial encounter; Translations: [Traumatic subdural hemorrhage with loss of consciousness status unknown, initial encounter] Unclassified (1 source) Chronic vascular disorders of intestine; 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] Onset: 07-06-2023 Viral infection (15 sources) Disease caused by 2019-nCoV; Translations: [COVID-19] Past or Other Problems Problem Classification Problem Date Documented Date Episodic/Chronic Acute bronchitis (20 sources) Acute bronchitis; Translations: [Acute bronchitis] Onset: 12-31-2017 Episodic Chronic kidney disease (12 sources) Chronic kidney disease; Translations: [Chronic kidney disease, stage 3a] Onset: 10-01-2021 Resolved: 12-10-2021 Noninfectious gastroenteritis (15 sources) Non-infective enteritis and colitis; Translations: [Noninfective gastroenteritis and colitis, unspecified] Onset: 06-24-2017 Episodic Nonspecific chest pain (8 sources) Chest pain, unspecified; Translations: [Chest pain] Onset: 02-12-2015 02-12-2015 Episodic Other aftercare (1 source) 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; Translations: [OTH PENITENTIARY CURRENT DRUG THERAPY] Onset: 09-01-2022 Episodic Other lower respiratory disease (1 source) Shortness of breath; Translations: [SHORTNESS OF BREATH] Onset: 10-19-2018 Episodic Other screening for suspected conditions (not mental disorders or infectious disease) (20 sources) Abnormal result of other cardiovascular function study; Translations: [Cardiovascular stress test abnormal] Onset: 02-12-2015 02-12-2015 Episodic Other upper respiratory infections (20 sources) Acute pharyngitis, unspecified; Translations: [Streptococcal pharyngitis] Onset: 01-18-2015 Resolved: 04-11-2022 Episodic Residual codes; unclassified (7 sources) Amnesia; Translations: [Other amnesia] Onset: 10-20-2012 10-20-2012 Episodic Residual codes; unclassified (1 source) Acquired absence of both cervix and uterus; Translations: [ACQUIRED ABSENCE BOTH CERVIX AND UTERUS] Onset: 09-01-2022 Episodic Residual codes; unclassified (1 source) Acquired absence of other specified parts of digestive tract; Translations: [ACQ ABSENCE OTH PART DIGESTV TRACT] Onset: 09-01-2022 Episodic Residual codes; unclassified (1 source) Acquired absence of left breast and nipple; Translations: [ACQUIRED ABSENCE LT BREAST AND NIPPLE] Onset: 09-01-2022 Episodic Unclassified (1 source) Malignant neoplasm of breast in remission 08-31-2023 Results Test Name Value Interpretation Reference Range Facility Office Visiton 11-09-2023 Follow-up visit [id number] Syed Michelle 1950 F Date Provider Department Center 11/09/2023 271-[facility] Family History Problem Relation Age of Onset Other Mother Aneurysm Father Hypertension Father Hypertension Brother Family Status - Relation Status Age at Mother Father Brother Level of Service:34033 [place] OFFICE/OUTPATIENT ESTABLISHED LOW MDM 20 MIN Normal [facility] Reminderson 10-08-2023 Reminders - From: Jaqcuelyn Schroeder MA To: TALA - Reminders/Recalls; Sent: 10/08/2023 14:43:01 EST Show up: 12/28/2023 14:42:00 EDT Subject: colon recall Due Date/Time: 01/28/2024 14:42:00 EDT Reminder Message [address] Marcos 01/27/19 Normal [facility] Urinalysis - DIPSTICKon 08-14 Appearance (U) Clear Jamn Other Bilirubin Ql (U) Negative Yakaz Other Color (U) Yellow Numblebee Other Glucose Ql (U) Negative Jamn Other Hemoglobin Ql (U) Negative Pictorious Other Ketones Ql (U) Negative Jamn Other Leukocyte esterase Test strip Ql (U) Negative Numblebee Other Nitrite Ql (U) Negative Jamn Other pH (U) 5.0 [pH] [place]umblebee Other Protein Ql (U) Trace Jamn Other Specific gravity (U) [Rel density] 1.010 [place]bee Other Urobilinogen (U) [Mass/Vol] 0.2 mg/dL [place]bee Other Urinalysis - DIPSTICK [place]umblebee Other Urine Cultureon 09-10-2023 Bacteria identified Cx Nom (U) <9,000 colonies/ml mixed bacterial skin contaminants 2 Days PERFORMED BY: [facility] [place] [address] PATHOLOGIST PHOTOGRAPHIC HAND DEVELOPER ANTWON BETANCUR M.D. [facility] Comment on above: Performed By: #### C UU #### [facility] [address] [id number] [facility] Formson 09-09-2023 Forms [id number] [facility] Physician Referralon 023 Physician Referral [id number] [facility] Screenson 09-09-2023 Screens [id number] [facility] Ambulatory Visit Summaryon 11-08-2022 Ambulatory Visit Summary SYED MICHELLE :1950 Visit Date:09/08/2023 Ambulatory Visit Instructions Your Diagnosis Hydronephrosis Renal cyst Kidney stones Tests Performed Urnls Dip Stick Auto w/o Microscopy POC 15541 Your Care Team Attending Physician - Frank MARCUS, Flores Leo Primary Care Physician - PAUL MARCUS, LON Referring Physician - VLADIMIR CLIFTON MD This Is Your Medications List Non-Formulary Medication (magnesium) aspirin atorvastatin carvedilol chlorthalidone (chlorthalidone 25 mg Tab) cyanocobalamin (Vitamin B12) docusate-senna (Stool Softener with Laxative) isosorbide mononitrate (isosorbide mononitrate 30 mg ER Tab) losartan (losartan 50 mg Tab) potassium chloride (Klor-Con M20) sertraline (sertraline 50 mg Tab) Procedures Performed Cholecystectomy, Colonoscope, Hysterectomy, Mastectomy. Discharge Vitals Temperature (Temporal Artery) 36.2 ?C Heart Rate (Peripheral) 78 Blood Pressure 118/78 Height 173 cm Height 68 in Weight 55 kg Weight 121 lb BMI 18.38 What to do next You Need to Schedule the Following Appointments Follow Up with Frank MARCUS, Flores Leo, URL, URO When: Comments: PRN Where: Medications What How Much When Instructions Unchanged aspirin 81 Milligram By Mouth Every day Unchanged atorvastatin 80 Milligram By Mouth Every day Unchanged carvedilol 25 Milligram By Mouth 2 times a day Unchanged chlorthalidone (chlorthalidone 25 mg Tab) 1 Tablets By Mouth Every day Unchanged cyanocobalamin (Vitamin B12) Unchanged docusate-senna (Stool Softener with Laxative) Unchanged isosorbide mononitrate (isosorbide mononitrate 30 mg ER Tab) 1 Tablets By Mouth Once a day (in the morning) Unchanged losartan (losartan 50 mg Tab) 1 Tablets By Mouth Every day Unchanged Non-Formulary Medication (magnesium) 400 Milligram Unchanged potassium chloride (Klor-Con M20) 20 Milliequivalent By Mouth 2 times a day Unchanged sertraline (sertraline 50 mg Tab) 1 Tablets By Mouth Every day Test Results Urnls Dip Stick Auto w/o Microscopy POC 14647 (09/08/2023) Bilirubin Urine Dipstick - Negative Blood Urine Dipstick - Trace-intact Glucose Urine Dipstick - Negative Ketones Urine Dipstick - Negative Leukocytes Urine Dipstick - 1+ Small Nitrite Urine Dipstick - Negative Protein Urine Dipstick - Negative Specific [place] Urine Dipstick - 1.020 Urine Appearance Urine Dipstick - Clear Urine Color Urine Dipstick - Yellow Urobilinogen Urine Dipstick - Normal 0.2-1 EU/dl pH Urine Dipstick - 7 Allergies sulfa drugs Problems Ongoing - Any problem that you are currently receiving treatment for. Hydronephrosis Kidney stones Renal cyst Smoker Historical - Any problem that you are no longer receiving treatment for. Anxiety Breast cancer in remission Coronary artery disease Hypercholesterolemia Hyperlipidemia Hypertension Hypokalemia Overactive bladder Subdural hematoma Patient Survey You may receive a survey via text or e-mail asking about your office visit. Please share your experience with us by completing your survey. We appreciate your feedback and thank you for choosing us for your care. Education Materials Dietary Guidelines to Help Prevent Kidney Stones Kidney stones are deposits of minerals and salts that form inside your kidneys. Your risk of developing kidney stones may be greater depending on your diet, your lifestyle, the medicines you take, and whether you have certain medical conditions. Most people can lower their chances of developing kidney stones by following the instructions below. Your dietitian may give you more specific instructions depending on your overall health and the type of kidney stones you tend to develop. What are tips for following this plan? Reading food labels ? Choose foods with no salt added or low-salt labels. Limit your salt (sodium) intake to less than 1,500 mg a day. ? Choose foods with calcium for each meal and snack. Try to eat about 300 mg of calcium at each meal. Foods that contain 200?500 mg of calcium a serving include: ? 8 oz (237 mL) of milk, zoywuyf-vdyywrievtue-igqr y milk, and calcium-fortifiedfruit juice. Calcium-fortified means that calcium has been added to these drinks. ? 8 oz (237 mL) of kefir, yogurt, and soy yogurt. ? 4 oz (114 g) of tofu. ? 1 oz (28 g) of cheese. ? 1 cup (150 g) of dried figs. ? 1 cup (91 g) of cooked broccoli. ? One 3 oz (85 g) can of sardines or mackerel. Most people need 1,000?1,500 mg of calcium a day. Talk to your dietitian about how much calcium is recommended for you. Shopping ? Buy plenty of fresh fruits and vegetables. Most people do not need to avoid fruits and vegetables, even if these foods contain nutrients that may contribute to kidney stones. ? When shopping for convenience foods, choose: ? Whole pieces of fruit. ? Pre-made salads with dressing on the side. ? L (more content not included)... Normal [facility] Patient Educationon 09-08-20 Patient Education Nephrology Dietary Guidelines to Help Prevent Kidney Stones Kidney stones are deposits of minerals and salts that form inside your kidneys. Your risk of developing kidney stones may be greater depending on your diet, your lifestyle, the medicines you take, and whether you have certain medical conditions. Most people can lower their chances of developing kidney stones by following the instructions below. Your dietitian may give you more specific instructions depending on your overall health and the type of kidney stones you tend to develop. What are tips for following this plan? Reading food labels ? Choose foods with no salt added or low-salt labels. Limit your salt (sodium) intake to less than 1,500 mg a day. ? Choose foods with calcium for each meal and snack. Try to eat about 300 mg of calcium at each meal. Foods that contain 200?500 mg of calcium a serving include: ? 8 oz (237 mL) of milk, amoegmo-egudjimyfwox-tpfp y milk, and calcium-fortifiedfruit juice. Calcium-fortified means that calcium has been added to these drinks. ? 8 oz (237 mL) of kefir, yogurt, and soy yogurt. ? 4 oz (114 g) of tofu. ? 1 oz (28 g) of cheese. ? 1 cup (150 g) of dried figs. ? 1 cup (91 g) of cooked broccoli. ? One 3 oz (85 g) can of sardines or mackerel. Most people need 1,000?1,500 mg of calcium a day. Talk to your dietitian about how much calcium is recommended for you. Shopping ? Buy plenty of fresh fruits and vegetables. Most people do not need to avoid fruits and vegetables, even if these foods contain nutrients that may contribute to kidney stones. ? When shopping for convenience foods, choose: ? Whole pieces of fruit. ? Pre-made salads with dressing on the side. ? Low-fat fruit and yogurt smoothies. ? Avoid buying frozen meals or prepared deli foods. These can be high in sodium. ? Look for foods with live cultures, such as yogurt and kefir. ? Choose high-fiber grains, such as whole-wheat breads, oat bran, and wheat cereals. Cooking ? Do not add salt to food when cooking. Place a salt shaker on the table and allow each person to add his or her own salt to taste. ? Use vegetable protein, such as beans, textured vegetable protein (TVP), or tofu, instead of meat in pasta, casseroles, and soups. Meal planning ? Eat less salt, if told by your dietitian. To do this: ? Avoid eating processed or pre-made food. ? Avoid eating fast food. ? Eat less animal protein, including cheese, meat, poultry, or fish, if told by your dietitian. To do this: ? Limit the number of times you have meat, poultry, fish, or cheese each week. Eat a diet free of meat at least 2 days a week. ? Eat only one serving each day of meat, poultry, fish, or seafood. ? When you prepare animal protein, cut pieces into small portion sizes. For most meat and fish, one serving is about the size of the palm of your hand. ? Eat at least five servings of fresh fruits and vegetables each day. To do this: ? Keep fruits and vegetables on hand for snacks. ? Eat one piece of fruit or a handful of berries with breakfast. ? Have a salad and fruit at lunch. ? Have two kinds of vegetables at dinner. ? Limit foods that are high in a substance called oxalate. These include: ? Spinach (cooked), rhubarb, beets, sweet potatoes, and Jamaican chard. ? Peanuts. ? Potato chips, greenlandic fries, and baked potatoes with skin on. ? Nuts and nut products. ? Chocolate. ? If you regularly take a diuretic medicine, make sure to eat at least 1 or 2 servings of fruits or vegetables that are high in potassium each day. These include: ? Avocado. ? Banana. ? Dawson, prune, carrot, or tomato juice. ? Baked potato. ? Cabbage. ? Beans and split peas. Lifestyle ? Drink enough fluid to keep your urine pale yellow. This is the most important thing you can do. Spread your fluid intake throughout the day. ? If you drink alcohol: ? Limit how much you use to: ? 0?1 drink a day for women who are not . ? 0?2 drinks a day for men. ? Be aware of how much alcohol is in your drink. In the [place] one drink equals one 12 oz bottle of beer (355 mL), one 5 oz glass of wine (148 mL), or one 1? oz glass of hard liquor (44 mL). ? Lose weight if told by your health care provider. Work with your dietitian to find an eating plan and weight loss strategies that work best for you. General information ? Talk to your health care provider and dietitian about taking daily supplements. You may be told the following depending on your health and the cause of your kidney stones: ? Not to take supplements with vitamin C. ? To take a calcium supplement. ? To take a daily probiotic supplement. ? To take other supplements such as magnesium, fish oil, or vitamin B6. ? Take ppqj-ydg-dkxgmfg and prescription medicines only as told by your health care provider. These include supplements. What foods should I limit? Limit your in (more content not included)... 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 FAITH 08/03/23 - Rt nonobstructing stones, mod Rt hydro favoring chronic rather than acute, benign appearing Lt renal cysts Never been seen in our office before CT abdomen pelvis with con 08/24/23 CMP done- 07/27/23 BUN(14.0) CREAT (1.08) B&BSQ 5 Dysuria: denies Incomplete bladder emptying: sometimes Hematuria: denies visible blood Frequency: every few hours Urgency: _denies Nocturia: 2x nightly Stream: denies hesitation, normal stream Leaking: denies Post void dripping: denies Wearing pads/ Depends: denies Urge incontinence: denies Stress incontinence: denies Incontinence without Sensory Awareness: denies Abdominal pain: denies Flank pain: left side pain, started 6 months ago. Off and on pain Sexual complaints: denies History of Present Illness Tests reviewed: reviewed UA and External Records. I have reviewed the previous health record information and history for this patient from External Provider. I have reviewed and verified the staff HPI to be accurate for this encounter. There have been no associated fever, chills, flank pain, or blood in the urine. Denies any urinary infections since last encounter. Review of Systems PHQ Score Initial Depression Screen Score: 0 SCORE ROS - Provider Constitutional: denies weight loss, denies hot flashes. Eyes: denies eye problems. Gastrointestinal: denies nausea, denies vomiting. Cardiovascular: denies chest pain or angina. Integumentary: no dryness Musculoskeletal: denies musculoskeletal symptoms. ENMT: denies otolaryngeal symptoms. Respiratory: no shortness of breath. Heme/Lymph: denies easy bleeding tendency, denies easy bruising tendency. Psychiatric: no confusion, no anxiety. Genitourinary: See HPI. Physical Exam Vitals & Measurements T: 36.2 ?C(Temporal Artery) HR: 78(Peripheral) BP: 118/78 HT: 68 in HT: 173 cm WT: 55 kg WT: 121 lb BMI: 18.38 General Appearance: alert , no acute distress, well nourished, well developed female. Head: normocephalic . Eyes: normal orbit and globe. ENMT: normal examination of external ears. Chest: symmetric chest rise, respirations non labored . Cardiovascular: regular rate and rhythm. Abdomen: soft, non distended, no tenderness Genitourinary: bladder nonpalpable, no flank tenderness. Skin: warm, dry, no bruising. Psychiatric: cooperative, affect appropriate for age, normal judgement, euthymic mood. Assessment/Plan 72-year-old female here for new patient evaluation of right hydronephrosis, referred by nephrology Pt denies any bothersome urinary issues. 1. Hydronephrosis (N13.30: Unspecified hydronephrosis) FAITH 08/03/23 - mod Rt hydro favoring chronic rather than acute CT AP w/Con 08/24/23 - no hydro noted Pt denies any pain on the Rt, just on the Lt. Discussed imaging results with pt, since 2019 has had right extrarenal pelvis. Does not appear to have blunting of calyces, delayed nephrogram or loss of parenchyma. Discussed anatomy and the above. No further evaluation or workup needed for extrarenal pelvis. -Follow up in as needed. All questions/concerns were discussed. Pt to call the office if she encounters any issues prior. Pt acknowledges understanding. 2. Renal cyst (N28.1: Cyst of kidney, acquired) FAITH 08/03/23 - benign appearing Lt renal cysts CT AP w/Con 08/24/23 - hypodense lesion within the midpole of the Lt kidney, 1.8 cm, likely a cyst (HU < 10, simple cysts) Unlikely causing her pain Discussed imaging results with pt, has a simple cyst, no monitoring recommended for simple cysts. Pt states that she has had this cyst for years. 3. Kidney stones (N20.0: Calculus of kidney) FAITH 08/03/23 - Rt nonobstructing stones CT AP w/Con 08/24/23 - no stones noted I spent 45 minutes today with the patient: reviewing tests in preparation to see and discuss them with the patient, obtaining and reviewing external separately obtained history, documenting clinical information in the electronic health records, and care coordination. Time was spent performing a medical exam and evaluation, counseling and educating the patient, in caring for the patient. Follow-up With When Contact Information Frank MARCUS, Flores Leo, URL, URO Additional Instructions: PRN Patient Education Dietary Guidelines to Help Prevent Kidney Stones I, Magaly iL, personally scribed for Dr. Marie on 09/08/2023 11:18:39. . Portions of this record may have been created with voice recognition artificial intelligence software, specifically [employer], [employer] and or [employer]. Substitutions may have occurred due to the inherent limitations of voice recognition and artificial intelligence software. Documentation recorded by the scribMagaly sarah, accurately reflects the services(s) I (more content not included)... [facility] Comment on above: Result Comment: Elec tronically Signed By: Frank MARCUS, Flores Leo\.br\Date and Time Signed: 09/08/23 11:54 EST\.br\Electronically Co-Signed By: Magaly Li\.br\Date and Time Co-Signed: 09/08/23 11:19 EST RAD - CT Reporton 09-01-2023 RAD - CT Report [id number] [facility] Physician Orderon 08-17-2023 Physician Order [id number] [facility] Quick Strepon 07-20-2023 S. pyogenes Org specific cx Ql (Throat) Negative Numblebee Other Quick Strep [facility] Algolux Other US renal doppleron 3 US renal doppler [facility] [place] [address] Ultrasound Report Signed Patient: Syed Michelle MR#: [id number] : 1950 Acct:[id number] Age/Sex: 72 / F ADM Date: 07/06/23 Loc: Room: Type: [facility] Attending Dr: Mukesh Fam MD Ordering Provider: Mukesh Fam MD Date of Service: 07/06/23 US/US renal doppler: SUPERIOR MESENTERIC ARTERY STENOSIS, ELEV. BLOOD PRESSURE Copies to: Mukesh Fam MD Bilateral renal artery duplex examination Indication for study: Hypertension PROCEDURE: Color-flow duplex scanning is used to interrogate the patient's infrarenal abdominal aorta and both renal vessels. The infrarenal abdominal aorta is 18 mm in diameter with a velocity of 82 cm/s peak systolic. The inferior vena cava is noted be patent. Both iliacs appear approximately 9 mm in diameter. Celiac artery is patent with a velocity 149 cm/s. Superior mesenteric artery is patent with a velocity of 239 cm/s. Right kidney parenchymal height is 10 cm with a cortical thickness of 12 mm. Velocities across the right renal artery range from a low 40 to a high of 133 cm/s. The renal aortic ratios 1.6. Left renal parenchymal height is 10.2 cm with a cortical thickness of 13 mm. Velocities across the left renal artery range from a low 40 to a high of 74 cm/s. Renal aortic ratio 0.9. Both renal veins appear patent. There is a 2 cm left renal cyst. US/US renal doppler IMPRESSION: No hemodynamically significant stenosis is seen in either renal artery. The celiac and superior mesenteric arteries are patent. Impression dictated by: Mukesh Fam M.D.07/06/2023 4:09 PM [facility]ation [facility] Tech: Tenisha Henry Transcribed By: LYDIA 07/06/23 1609 Dictated By: Mukesh Fam MD 07/06/23 1606 Signed By: 07/06/23 1609 [facility] Quick Strepon 07-03-2023 S. pyogenes Org specific cx Ql (Throat) Negative [facility] Other Quick Strep [facility] Other Quick Strepon 06-23-2023 S. pyogenes Org specific cx Ql (Throat) Positive [facility] Other Quick Strep [facility] Other SARS-CoV-2 (COVID-19) RNA NA A+probe Ql (Resp)on 06-23-2023 SARS-CoV-2 (COVID-19) RNA BEKAH+probe Ql (Unsp spec) Negative [facility] Other Quick [facility]rep[facility] 06-12-2023 S. pyogenes Org specific cx Ql (Throat) Positive [facility] Other Quick Strep [facility] Other Quick Strepon 04-29-2023 S. pyogenes Org specific cx Ql (Throat) Positive [facility] Other Quick Strep [facility] Other Quick Strepon 03-17-2023 S. pyogenes Org specific cx Ql (Throat) Positive [facility] Other Quick Strep [facility] Other CBC AUTO DIFFon 01-26-2023 BASO # 0.0 103/ul Normal 0.0-0.1 [facility] Comment on above: Performed By: #### C MP, TSH #### [facility] [address] [place] [address] Dr. Shayy Hernandez Basophils/100 WBC (Bld) 0.6 % Normal 0.2-2.0 [facility] Comment on above: Performed By: #### C MP, TSH #### [facility] [address] [place] [address] Dr. Shayy Hernandez EO # 0.2 103/ul Normal 0.0-0.7 [facility] Comment on above: Performed By: #### C MP, TSH #### [facility] [address] [address] [address] Shayy Hernandez Eosinophils/100 WBC (Bld) 3.2 % Normal 0.9-7.0 [facility] Comment on above: Performed By: #### C MP, TSH #### [facility] [address] [place] [address] Dr. Shayy Hernandez Erythrocyte distribution width (RBC) [Ratio] 12.8 % Normal 11.0-15.0 [facility] Comment on above: Performed By: #### C MP, TSH #### [facility] [address] [place] [address] Dr. Shayy Hernandez Hematocrit (Bld) [Volume fraction] 38.6 % Normal 36.0-48.0 [facility] Comment on above: Performed By: #### C MP, TSH #### [facility] [address] [place] [address] Dr. Shayy Hernandez Hemoglobin (Bld) [Mass/Vol] 12.7 g/dL Normal 12.0-16.0 [facility] Comment on above: Performed By: #### C MP, TSH #### [facility] [address] [place] [address] Dr. Shayy Hernandez IG # 0.01 10e3/ul Normal 0.00-0.03 [facility] Comment on above: Performed By: #### C MP, TSH #### [facility] [address] [place] [address] Dr. Shayy Hernandez IG % 0.2 % Normal 0.0-0.5 [facility] Comment on above: Performed By: #### C MP, TSH #### [facility] [address] [place] [address] Dr. Shayy Hernandez LYMPH # 1.7 103/ul Normal 1.2-3.8 [facility] Comment on above: Performed By: #### C MP, TSH #### [facility] [address] [place] [address] Dr. Shayy Hernandez Lymphocytes/100 WBC (Bld) 27.2 % Normal 20.5-60.0 [facility] Comment on above: Performed By: #### C MP, TSH #### [facility] [address] [place] [address] Dr. Shayy Hernandez MANUAL DIFF REQ NO Normal [facility] Comment on above: Performed By: #### C MP, TSH #### [facility] [address] [place] [address] Dr. Shayy Hernandez MCH (RBC) [Entitic mass] 29.8 pg Normal 26.7-34.0 [facility] Comment on above: Performed By: #### C MP, TSH #### [facility] [address] [address] [address] Shayy Hernandez MCHC (RBC) [Mass/Vol] 32.9 g/dL Normal 29.9-35.2 [facility] Comment on above: Performed By: #### C MP, TSH #### [facility] [address] [place] [address] Dr. Shayy Hernandez MCV (RBC) [Entitic vol] 90.6 fL Normal 81.0-99.0 [facility] Comment on above: Performed By: #### C MP, TSH #### [facility] [address] [place] [address] Dr. Shayy Hernandez MONO # 0.5 103/ul Normal 0.3-0.8 [facility] Comment on above: Performed By: #### C MP, TSH #### [facility] [address] [place] [address] Dr. Shayy Hernandez Monocytes/100 WBC (Bld) 7.9 % Normal 1.7-12.0 [facility] Comment on above: Performed By: #### C MP, TSH #### [facility] [address] [place] [address] Dr. Shayy Hernandez NEUT # 3.8 103/ul Normal 1.4-6.5 [facility] Comment on above: Performed By: #### C MP, TSH #### [facility] [address] [place] [address] Dr. Shayy Hernandez Neutrophils/100 WBC (Bld) 60.9 % Normal 43.0-75.0 [facility] Comment on above: Performed By: #### C MP, TSH #### [facility] [address] [address] [address] Shayy Hernandez Platelet mean volume (Bld) [Entitic vol] 9.6 fL Normal 9.5-13.5 [facility] Comment on above: Performed By: #### C MP, TSH #### [facility] [address] [place] [address] Dr. Shayy Hernandez PLT 195 103/ul Normal 150-450 [facility] Comment on above: Performed By: #### C MP, TSH #### [facility] [address] [place] [address] Dr. Shayy Hernandez RBC 4.26 106/ul Normal 4.20-5.40 [facility] Comment on above: Performed By: #### C MP, TSH #### [facility] [address] [place] [address] Dr. Shayy Hernandez WBC 6.2 103/ul Normal 4.0-11.0 [facility] Comment on above: Performed By: #### C MP, TSH #### [facility] [address] [place] [address] Dr. Shayy Hernandez PROF 14(COMP METB)on 023 Albumin [Mass/Vol] 3.8 g/dL Normal 3.4-5.0 [facility] Comment on above: Performed By: #### F T4 #### [facility] [address] [place] [address] Dr. Shayy Hernandez Albumin/Globulin [Mass ratio] 1.1 {ratio} Normal [facility] Comment on above: Performed By: #### F T4 #### [facility] [address] [place] [address] Dr. Shayy Hernandez ALP [Catalytic activity/Vol] 77 U/L Normal 46-116 [facility] Comment on above: Performed By: #### F T4 #### [facility] [address] [place] [address] Dr. Shayy Hernandez ALT [Catalytic activity/Vol] 33 U/L Normal 14-59 [facility] Comment on above: Performed By: #### F T4 #### [facility] [address] [place] [address] Dr. Shayy Hernandez Anion gap [Moles/Vol] 12.3 mmol/L Normal [facility] Comment on above: Performed By: #### F T4 #### [facility] [address] [place] [address] Dr. Shayy Hernandez AST [Catalytic activity/Vol] 17 U/L Normal 15-37 [facility] Comment on above: Performed By: #### F T4 #### [facility] [address] [address] [address] Shayy Hernandez Bilirubin [Mass/Vol] 0.6 mg/dL Normal 0.2-1.0 [facility] Comment on above: Performed By: #### F T4 #### [facility] [address] [address] [address] Shayy Hernandez Calcium [Mass/Vol] 9.1 mg/dL Normal 8.5-10.1 [facility] Comment on above: Performed By: #### F T4 #### [facility] [address] [address] [address] Shayy Hernandez Chloride [Moles/Vol] 107 mmol/L Normal 98-107 [facility] Comment on above: Performed By: #### F T4 #### [facility] [address] [place] [address] Dr. Shayy Hernandez CO2 [Moles/Vol] 26.9 mmol/L Normal 21.0-32.0 [facility] Comment on above: Performed By: #### F T4 #### [facility] [address] [place] [address] Dr. Shayy Hernandez Creatinine [Mass/Vol] 0.98 mg/dL Normal 0.55-1.02 [facility] Comment on above: Performed By: #### F T4 #### [facility] [address] [place] [address] Dr. Shayy Hernandez EGFR-AF TUVALUAN >60 Normal >=60 [facility] Comment on above: Performed By: #### F T4 #### [facility] [address] [address] [address] Shayy Hernandez EGFR-NON AF TUVALUAN 56 mL/min/1.73m2 Critically low >=60 [facility] Comment on above: Performed By: #### F T4 #### [facility] [address] [place] [address] Dr. Shayy Hernandez Globulin (S) [Mass/Vol] 3.6 g/dL Normal [facility] Comment on above: Performed By: #### F T4 #### [facility] [address] [address] [address] Shayy Hernandez Glucose [Mass/Vol] 77 mg/dL Normal 74-106 [facility] Comment on above: Performed By: #### F T4 #### [facility] [address] [address] [address] Shayy Hernandez Potassium [Moles/Vol] 4.2 mmol/L Normal 3.5-5.1 [facility] Comment on above: Performed By: #### F T4 #### [facility] [address] [address] [address] Shayy Hernandez Protein [Mass/Vol] 7.4 g/dL Normal 6.4-8.2 [facility] Comment on above: Performed By: #### F T4 #### [facility] [address] [place] [address] Dr. Shayy Hernandez Sodium [Moles/Vol] 142 mmol/L Normal 136-145 [facility] Comment on above: Performed By: #### F T4 #### [facility] [address] [place] [address] Dr. Shayy Hernandez Urea nitrogen [Mass/Vol] 18.0 mg/dL Normal 7.0-18.0 [facility] Comment on above: Performed By: #### F T4 #### [facility] [address] [place] [address] Dr. Shayy Hernandez Urea nitrogen/Creatinine [Mass ratio] 18.4 mg/mg Normal [facility] Comment on above: Performed By: #### F T4 #### [facility] [address] [address] [address] Shayy Hernandez UA RANDOMon 01-26-2023 Bilirubin Ql (U) Negative Normal NEGATIVE [facility] Comment on above: Performed By: #### U A #### [facility] [address] [place] [address] Dr. Shayy Hernandez Clarity (U) CLEAR Normal CLEAR [facility] Comment on above: Performed By: #### U A #### [facility] [address] [place] [address] Dr. Shayy Hernandez Color (U) LT. YELLOW Normal YELLOW [facility] Comment on above: Performed By: #### U A #### [facility] [address] [address] [address] Shayy Hernandez Glucose Ql (U) Negative Normal NEGATIVE [facility] Comment on above: Performed By: #### U A #### [facility] [address] [address] [address] Shayy Hernandez Hemoglobin Ql (U) Negative Normal NEGATIVE [facility] Comment on above: Performed By: #### U A #### [facility] [address] [address] [address] Sahyy Hernandez Ketones Ql (U) Negative Normal NEGATIVE [facility] Comment on above: Performed By: #### U A #### [facility] [address] [place] [address] Dr. Shayy Hernandez LEUKOCYTES Negative Normal NEGATIVE [facility] Comment on above: Performed By: #### U A #### [facility] [address] [place] [address] Dr. Shayy Hernandez Nitrite Ql (U) Negative Normal NEGATIVE [facility] Comment on above: Performed By: #### U A #### [facility] [address] [place] [address] Dr. Shayy Hernandez pH (U) 6.5 [pH] Normal 5-9 [facility] Comment on above: Performed By: #### U A #### [facility] [address] [place] [address] Dr. Shayy Hernandez SPEC GRAVITY 1.010 Normal 1.005-<=1.[address] [place] [address] Comment on above: Performed By: #### U A #### [facility] [address] [place] [address] Dr. Shayy Hernandez UA PROTEIN Negative Normal NEGATIVE/ TRACE [facility] Comment on above: Performed By: #### U A #### [facility] [address] [place] [address] Dr. Shayy Hernandez Urobilinogen Qn (U) 0.2 {Marco A'U}/dL Normal 0.2 - 1. 0 [facility] Comment on above: Performed By: #### U A #### [facility] [address] [place] [address] Dr. Shayy Hernandez URIC ACID SERUMon 01-26-2023 Urate [Mass/Vol] 4.4 mg/dL Normal 2.6-6.0 [facility] Comment on above: Performed By: #### F T4 #### [facility] [address] [place] [address] Dr. Shayy Hernandez URINE T PROTEIN CREAT RATIOo n 01-26-2023 Protein (U) [Mass/Vol] 15.2 mg/dL Critically high <=12.0 [facility] Comment on above: Performed By: #### C SAHRA, TSH #### [facility] [address] [place] [address] Dr. Shayy Hernandez UR PROT CREAT RAT 0.13 Normal [facility] Comment on above: Performed By: #### C SAHRA, TSH #### [facility] [address] [place] [address] Dr. Shayy Hernandez URINE CREAT 113.89 mg/dL Normal 20.00-300.0 0 [facility] Comment on above: Performed By: #### C SAHRA, TSH #### [facility] [address] [place] [address] Dr. Shayy Hernandez VITAMIN D 25 OHon 01-26-2023 VIT D 25-OH 19.0 ng/mL Normal [facility] Comment on above: Performed By: #### C SAHRA, TSH #### [facility] [address] [place] [address] Dr. Shayy Hernandez VIT D RANGES SEE BELOW Normal [facility] Comment on above: Result Comment: <20 ng/mL Vit D deficient 20 - <30 ng/mL Vit D insufficient 30 - 100 ng/mL Vit D sufficient >100 ng/mL Potential Toxicity Performed By: #### C MP, TSH #### [facility] [address] [place] [address] Dr. Shayy Hernandez MG MAMM DIAGNOSTIC 3D LUDIVINA CA Don 12-23-2022 MG MAMM DIAGNOSTIC 3D LUD[place]INA CAD Patient: SYED MICHELLE Exam Date: 12/23/2022 : 1950 Gender:F Ordering : DR LON MILLER M.D. Admission #: [id number] Family : Order #: [id number] CLICK HERE TO VIEW EXAM RADIOLOGY REPORT PROCEDURE: MAMMOGRAM DIAGNOSTIC 3D BILATERAL CAD, 12/23/2022, 13:51 ULTRASOUND BREAST LEFT LIMITED, 12/23/2022, 15:36 COMPARISON: MG MAMM RT DIAG W CAD, 02/16/2019. MG MAMM RT DIAG W CAD, 01/15/2018. MG MAMM RT DIAG W CAD, 01/05/2017. DIGITIZED_MAMMO, 10/25/2008. INDICATIONS: Pain of breast Calculator Name NCI Breast Cancer Risk Assessment Tool 5 Year Breast Cancer Risk n/a% Lifetime Breast Cancer Risk n/a% Personal Breast Cancer Yes, INFILTRATING DUCTAL CARCINOMA AGE 59 Personal Ovarian Cancer No Treatments CHEMOTHERAPY DECEMBER 2008, Left mastectomy Family Cancers None LOCATION: [facility] BREAST COMPOSITION: Extremely dense, which lowers the sensitivity of mammography. FINDINGS: DIAGNOSTIC CATEGORY 2--BENIGN FINDING: RIGHT BREAST: No significant suspicious finding. No significant change has occurred. LEFT BREAST: Prior mastectomy with implant reconstruction. No suspicious mammographic abnormality. Ultrasound evaluation demonstrates a 7 x 6 x 3 mm benign-appearing lymph node along posterior lateral margin of implant. RECOMMENDATIONS: ROUTINE MAMMOGRAM AND CLINICAL EVALUATION IN 12 MONTHS. PLEASE NOTE: A NORMAL MAMMOGRAM DOES NOT EXCLUDE THE POSSIBILITY OF BREAST CANCER. A CLINICALLY SUSPICIOUS PALPABLE LUMP SHOULD BE BIOPSIED. Dictated by: Buck Aguirre M.D. on 12/23/2022 at 15:40 Approved by: Buck Aguirre M.D. on 12/23/2022 at 15:43 Normal [facility] US BREAST LEFT LIMITEDon US BREAST LEFT LIMITED Patient: SYED MICHELLE Exam Date: 12/23/2022 : 1950 Gender:F Ordering : DR LON MILLER M.D. Admission #: [id number] Family : Order #: [id number] CLICK HERE TO VIEW EXAM RADIOLOGY REPORT PROCEDURE: MAMMOGRAM DIAGNOSTIC 3D BILATERAL CAD, 12/23/2022, 13:51 ULTRASOUND BREAST LEFT LIMITED, 12/23/2022, 15:36 COMPARISON: MG MAMM RT DIAG W CAD, 02/16/2019. MG MAMM RT DIAG W CAD, 01/15/2018. MG MAMM RT DIAG W CAD, 01/05/2017. DIGITIZED_MAMMO, 10/25/2008. INDICATIONS: Pain of breast Calculator Name NCI Breast Cancer Risk Assessment Tool 5 Year Breast Cancer Risk n/a% Lifetime Breast Cancer Risk n/a% Personal Breast Cancer Yes, INFILTRATING DUCTAL CARCINOMA AGE 59 Personal Ovarian Cancer No Treatments CHEMOTHERAPY DECEMBER 2008, Left mastectomy Family Cancers None LOCATION: [facility] BREAST COMPOSITION: Extremely dense, which lowers the sensitivity of mammography. FINDINGS: DIAGNOSTIC CATEGORY 2--BENIGN FINDING: RIGHT BREAST: No significant suspicious finding. No significant change has occurred. LEFT BREAST: Prior mastectomy with implant reconstruction. No suspicious mammographic abnormality. Ultrasound evaluation demonstrates a 7 x 6 x 3 mm benign-appearing lymph node along posterior lateral margin of implant. RECOMMENDATIONS: ROUTINE MAMMOGRAM AND CLINICAL EVALUATION IN 12 MONTHS. PLEASE NOTE: A NORMAL MAMMOGRAM DOES NOT EXCLUDE THE POSSIBILITY OF BREAST CANCER. A CLINICALLY SUSPICIOUS PALPABLE LUMP SHOULD BE BIOPSIED. Dictated by: Buck Aguirre M.D. on 12/23/2022 at 15:40 Approved by: Buck Aguirre M.D. on 12/23/2022 at 15:43 Normal [facility] Office Visiton 12-05-2022 Follow-up visit [id number] Syed Michelle 1950 F Date Provider Department Center 12/05/2022 IVETTE CRISTOBAL [facility] Family History Problem Relation Age of Onset Other Mother Aneurysm Father Hypertension Father Hypertension Brother Family Status - Relation Status Age at Mother Father Brother Level of Service:[id number] [place] OFFICE/OUTPATIENT ESTABLISHED MOD MDM 30-39 MIN Reason for Visit and Comments: Hypertension [564461] Coronary Artery Disease [187] Normal [facility] CBC AUTO DIFFon 12-01-2022 BASO # 0.0 103/ul Normal 0.0-0.1 [facility] Comment on above: Performed By: #### C BC #### [facility] [address] [address] [address] Shayy Hernandez Basophils/100 WBC (Bld) 0.4 % Normal 0.2-2.0 [facility] Comment on above: Performed By: #### C BC #### [facility] [address] [place] [address] Dr. Shayy Hernandez EO # 0.2 103/ul Normal 0.0-0.7 [facility] Comment on above: Performed By: #### C BC #### [facility] [address] [place] [address] Dr. Shayy Hernandez Eosinophils/100 WBC (Bld) 3.5 % Normal 0.9-7.0 [facility] Comment on above: Performed By: #### C BC #### [facility] [address] [place] [address] Dr. Shayy Hernandez Erythrocyte distribution width (RBC) [Ratio] 13.4 % Normal 11.0-15.0 [facility] Comment on above: Performed By: #### C BC #### [facility] [address] [place] [address] Dr. Shayy Hernandez Hematocrit (Bld) [Volume fraction] 37.0 % Normal 36.0-48.0 [facility] Comment on above: Performed By: #### C BC #### [facility] [address] [place] [address] Dr. Shayy Hernandez Hemoglobin (Bld) [Mass/Vol] 11.9 g/dL Critically low 12.0-16.0 [facility] Comment on above: Performed By: #### C BC #### [facility] [address] [place] [address] Dr. Shayy Hernandez IG # 0.01 10e3/ul Normal 0.00-0.03 [facility] Comment on above: Performed By: #### C BC #### [facility] [address] [place] [address] Dr. Shayy Hernandez IG % 0.2 % Normal 0.0-0.5 [facility] Comment on above: Performed By: #### C BC #### [facility] [address] [place] [address] Dr. Shayy Hernandez LYMPH # 1.5 103/ul Normal 1.2-3.8 [facility] Comment on above: Performed By: #### C BC #### [facility] [address] [place] [address] Dr. Shayy Hernandez Lymphocytes/100 WBC (Bld) 31.4 % Normal 20.5-60.0 [facility] Comment on above: Performed By: #### C BC #### [facility] [address] [place] [address] Dr. Shayy Hernandez MANUAL DIFF REQ NO Normal [facility] Comment on above: Performed By: #### C BC #### [facility] [address] [place] [address] Dr. Shayy Hernandez MCH (RBC) [Entitic mass] 28.9 pg Normal 26.7-34.0 [facility] Comment on above: Performed By: #### C BC #### [facility] [address] [place] [address] Dr. Shayy Hernandez MCHC (RBC) [Mass/Vol] 32.2 g/dL Normal 29.9-35.2 [facility] Comment on above: Performed By: #### C BC #### [facility] [address] [place] [address] Dr. Shayy Hernandez MCV (RBC) [Entitic vol] 89.8 fL Normal 81.0-99.0 [facility] Comment on above: Performed By: #### C BC #### [facility] [address] [place] [address] Dr. Shayy Hernandez MONO # 0.4 103/ul Normal 0.3-0.8 [facility] Comment on above: Performed By: #### C BC #### [facility] [address] [place] [address] Dr. Shayy Hernandez Monocytes/100 WBC (Bld) 9.0 % Normal 1.7-12.0 [facility] Comment on above: Performed By: #### C BC #### [facility] [address] [place] [address] Dr. Shayy Hernandez NEUT # 2.7 103/ul Normal 1.4-6.5 [facility] Comment on above: Performed By: #### C BC #### [facility] [address] [place] [address] Dr. Shayy Hernandez Neutrophils/100 WBC (Bld) 55.5 % Normal 43.0-75.0 [facility] Comment on above: Performed By: #### C BC #### [facility] [address] [address] [address] Shayy Hernandez Platelet mean volume (Bld) [Entitic vol] 10.1 fL Normal 9.5-13.5 [facility] Comment on above: Performed By: #### C BC #### [facility] [address] [address] [address] Shayy Hernandez PLT 186 103/ul Normal 150-450 [facility] Comment on above: Performed By: #### C BC #### [facility] [address] [address] [address] Shayy Hernandez RBC 4.12 106/ul Critically low 4.20-5.40 [facility] Comment on above: Performed By: #### C BC #### [facility] [address] [address] [address] Shayy Hernandez WBC 4.9 103/ul Normal 4.0-11.0 [facility] Comment on above: Performed By: #### C BC #### [facility] [address] [address] [address] Shayy Hernandez FREE T4on 12-01-2022 Free T4 [Mass/Vol] 1.00 ng/dL Normal 0.76-1.46 [facility] Comment on above: Performed By: #### F T4 #### [facility] [address] [place] [address] Dr. Shayy Hernandez PROF 14(COMP METB)on 023 Albumin [Mass/Vol] 3.9 g/dL Normal 3.4-5.0 [facility] Comment on above: Performed By: #### F T4 #### [facility] [address] [place] [address] Dr. Shayy Hernandez Albumin/Globulin [Mass ratio] 1.3 {ratio} Normal [facility] Comment on above: Performed By: #### F T4 #### [facility] [address] [place] [address] Dr. Shayy Hernandez ALP [Catalytic activity/Vol] 73 U/L Normal 46-116 [facility] Comment on above: Performed By: #### F T4 #### [facility] [address] [place] [address] Dr. Shayy Hernandez ALT [Catalytic activity/Vol] 45 U/L Normal 14-59 [facility] Comment on above: Performed By: #### F T4 #### [facility] [address] [place] [address] Dr. Shayy Hernandez Anion gap [Moles/Vol] 11.4 mmol/L Normal [facility] Comment on above: Performed By: #### F T4 #### [facility] [address] [place] [address] Dr. Shayy Hernandez AST [Catalytic activity/Vol] 29 U/L Normal 15-37 [facility] Comment on above: Performed By: #### F T4 #### [facility] [address] [place] [address] Dr. Shayy Hernandez Bilirubin [Mass/Vol] 0.5 mg/dL Normal 0.2-1.0 [facility] Comment on above: Performed By: #### F T4 #### [facility] [address] [place] [address] Dr. Shayy Hernandez Calcium [Mass/Vol] 9.0 mg/dL Normal 8.5-10.1 [facility] Comment on above: Performed By: #### F T4 #### [facility] [address] [place] [address] Dr. Shayy Hernandez Chloride [Moles/Vol] 106 mmol/L Normal 98-107 [facility] Comment on above: Performed By: #### F T4 #### [facility] [address] [place] [address] Dr. Shayy Hernandez CO2 [Moles/Vol] 26.5 mmol/L Normal 21.0-32.0 [facility] Comment on above: Performed By: #### F T4 #### [facility] [address] [place] [address] Dr. Shayy Hernandez Creatinine [Mass/Vol] 0.97 mg/dL Normal 0.55-1.02 [facility] Comment on above: Performed By: #### F T4 #### [facility] [address] [address] [address] Shayy Hernandez EGFR-AF TUVALUAN >60 Normal >=60 [facility] Comment on above: Performed By: #### F T4 #### [facility] [address] [address] [address] Shayy Hernandez EGFR-NON AF TUVALUAN 57 mL/min/1.73m2 Critically low >=60 [facility] Comment on above: Performed By: #### F T4 #### [facility] [address] [place] [address] Dr. Shayy Hernandez Globulin (S) [Mass/Vol] 3.1 g/dL Normal [facility] Comment on above: Performed By: #### F T4 #### [facility] [address] [address] [address] Shayy Hernandez Glucose [Mass/Vol] 75 mg/dL Normal 74-106 [facility] Comment on above: Performed By: #### F T4 #### [facility] [address] [address] [address] Shayy Hernandez Potassium [Moles/Vol] 3.9 mmol/L Normal 3.5-5.1 [facility] Comment on above: Performed By: #### F T4 #### [facility] [address] [address] [address] Shayy Hernandez Protein [Mass/Vol] 7.0 g/dL Normal 6.4-8.2 [facility] Comment on above: Performed By: #### F T4 #### [facility] [address] [address] [address] Shayy Hernandez Sodium [Moles/Vol] 140 mmol/L Normal 136-145 [facility] Comment on above: Performed By: #### F T4 #### [facility] [address] [address] [address] Shayy Hernandez Urea nitrogen [Mass/Vol] 20.0 mg/dL Critically high 7.0-18.0 [facility] Comment on above: Performed By: #### F T4 #### [facility] [address] [place] [address] Dr. Shayy Hernandez Urea nitrogen/Creatinine [Mass ratio] 20.6 mg/mg Normal [facility] Comment on above: Performed By: #### F T4 #### [facility] [address] [place] [address] Dr. Shayy Hernandez TSHon 12-01-2022 TSH 1.746 uIU/mL Normal 0.358-3.740 [facility] Comment on above: Performed By: #### F T4 #### [facility] [address] [place] [address] Dr. Shayy Hernandez PROF CHEM 8 (BAS METB)on Anion gap [Moles/Vol] 11.8 mmol/L Normal [facility] Comment on above: Performed By: #### F T4 #### [facility] [address] [place] [address] Dr. Shayy Hernandez Calcium [Mass/Vol] 8.9 mg/dL Normal 8.5-10.1 [facility] Comment on above: Performed By: #### F T4 #### [facility] [address] [place] [address] Dr. Shayy Hernandez Chloride [Moles/Vol] 105 mmol/L Normal 98-107 [facility] Comment on above: Performed By: #### F T4 #### [facility] [address] [place] [address] Dr. Shayy Hernandez CO2 [Moles/Vol] 27.6 mmol/L Normal 21.0-32.0 [facility] Comment on above: Performed By: #### F T4 #### [facility] [address] [place] [address] Dr. Shayy Hernandez Creatinine [Mass/Vol] 0.80 mg/dL Normal 0.55-1.02 [facility] Comment on above: Performed By: #### F T4 #### [facility] [address] [place] [address] Dr. Shayy Hernandez EGFR-AF TUVALUAN >60 Normal >=60 [facility] Comment on above: Performed By: #### F T4 #### [facility] [address] [address] [address] Shayy Hernandez EGFR-NON AF TUVALUAN >60 Normal >=60 [facility] Comment on above: Performed By: #### F T4 #### [facility] [address] [address] [address] Shayy Hernandez Glucose [Mass/Vol] 91 mg/dL Normal 74-106 [facility] Comment on above: Performed By: #### F T4 #### [facility] [address] [address] [address] Shayy Hernandez Potassium [Moles/Vol] 4.4 mmol/L Normal 3.5-5.1 [facility] Comment on above: Performed By: #### F T4 #### [facility] [address] [place] [address] Dr. Shayy Hernandez Sodium [Moles/Vol] 140 mmol/L Normal 136-145 [facility] Comment on above: Performed By: #### F T4 #### [facility] [address] [address] [address] Shayy Hernandez Urea nitrogen [Mass/Vol] 13.0 mg/dL Normal 7.0-18.0 [facility] Comment on above: Performed By: #### F T4 #### [facility] [address] [address] [address] Shayy Hernandez Urea nitrogen/Creatinine [Mass ratio] 16.2 mg/mg Normal [facility] Comment on above: Performed By: #### F T4 #### [facility] [address] [address] [address] Shayy Hernandez CBC AUTO DIFFon 10-20-2022 BASO # 0.0 103/ul Normal 0.0-0.1 [facility] Comment on above: Performed By: #### C BC #### [facility] [address] [address] [address] Shayy Hernandez Basophils/100 WBC (Bld) 0.4 % Normal 0.2-2.0 [facility] Comment on above: Performed By: #### C BC #### [facility] [address] [place] [address] Dr. Shayy Hernandez EO # 0.2 103/ul Normal 0.0-0.7 [facility] Comment on above: Performed By: #### C BC #### [facility] [address] [place] [address] Dr. Shayy Hernandez Eosinophils/100 WBC (Bld) 2.0 % Normal 0.9-7.0 [facility] Comment on above: Performed By: #### C BC #### [facility] [address] [place] [address] Dr. Shayy Hernandez Erythrocyte distribution width (RBC) [Ratio] 13.3 % Normal 11.0-15.0 [facility] Comment on above: Performed By: #### C BC #### [facility] [address] [place] [address] Dr. Shayy Hernandez Hematocrit (Bld) [Volume fraction] 35.8 % Critically low 36.0-48.0 [facility] Comment on above: Performed By: #### C BC #### [facility] [address] [place] [address] Dr. Shayy Hernandez Hemoglobin (Bld) [Mass/Vol] 12.4 g/dL Normal 12.0-16.0 [facility] Comment on above: Performed By: #### C BC #### [facility] [address] [place] [address] Dr. Shayy Hernandez IG # 0.02 10e3/ul Normal 0.00-0.03 [facility] Comment on above: Performed By: #### C BC #### [facility] [address] [place] [address] Dr. Shayy Hernandez IG % 0.3 % Normal 0.0-0.5 [facility] Comment on above: Performed By: #### C BC #### [facility] [address] [place] [address] Dr. Shayy Hernandez LYMPH # 1.2 103/ul Normal 1.2-3.8 [facility] Comment on above: Performed By: #### C BC #### [facility] [address] [place] [address] Dr. Shayy Hernandez Lymphocytes/100 WBC (Bld) 15.2 % Critically low 20.5-60.0 [facility] Comment on above: Performed By: #### C BC #### [facility] [address] [place] [address] Dr. Shayy Hernandez MANUAL DIFF REQ NO Normal [facility] Comment on above: Performed By: #### C BC #### [facility] [address] [place] [address] Dr. Shayy Hernandez MCH (RBC) [Entitic mass] 29.2 pg Normal 26.7-34.0 [facility] Comment on above: Performed By: #### C BC #### [facility] [address] [place] [address] Dr. Shayy Hernandez MCHC (RBC) [Mass/Vol] 34.6 g/dL Normal 29.9-35.2 [facility] Comment on above: Performed By: #### C BC #### [facility] [address] [place] [address] Dr. Shayy Hernandez MCV (RBC) [Entitic vol] 84.2 fL Normal 81.0-99.0 [facility] Comment on above: Performed By: #### C BC #### [facility] [address] [place] [address] Dr. Shayy Hernandez MONO # 0.5 103/ul Normal 0.3-0.8 [facility] Comment on above: Performed By: #### C BC #### [facility] [address] [place] [address] Dr. Shayy Hernandez Monocytes/100 WBC (Bld) 6.7 % Normal 1.7-12.0 [facility] Comment on above: Performed By: #### C BC #### [facility] [address] [place] [address] Dr. Shayy Hernandez NEUT # 5.9 103/ul Normal 1.4-6.5 [facility] Comment on above: Performed By: #### C BC #### [facility] [address] [place] [address] Dr. Shayy Hernandez Neutrophils/100 WBC (Bld) 75.4 % Critically high 43.0-75.0 [facility] Comment on above: Performed By: #### C BC #### [facility] [address] [place] [address] Dr. Shayy Hernandez Platelet mean volume (Bld) [Entitic vol] 9.9 fL Normal 9.5-13.5 [facility] Comment on above: Performed By: #### C BC #### [facility] [address] [place] [address] Dr. Shayy Hernandez PLT 165 103/ul Normal 150-450 [facility] Comment on above: Performed By: #### C BC #### [facility] [address] [place] [address] Dr. Shayy Hernandez RBC 4.25 106/ul Normal 4.20-5.40 [facility] Comment on above: Performed By: #### C BC #### [facility] [address] [place] [address] Dr. Shayy Hernandez WBC 7.9 103/ul Normal 4.0-11.0 [facility] Comment on above: Performed By: #### C BC #### [facility] [address] [place] [address] Dr. Shayy Hernandez FREE T4on 10-20-2022 Free T4 [Mass/Vol] 1.08 ng/dL Normal 0.76-1.46 [facility] Comment on above: Performed By: #### F T4 #### [facility] [address] [place] [address] Dr. Shayy Hernandez PROF 14(COMP METB)on 023 Albumin [Mass/Vol] 3.8 g/dL Normal 3.4-5.0 [facility] Comment on above: Performed By: #### C MP, TSH #### [facility] [address] [place] [address] Dr. Shayy Hernandez Albumin/Globulin [Mass ratio] 1.2 {ratio} Normal [facility] Comment on above: Performed By: #### C MP, TSH #### [facility] [address] [address] [address] Shayy Hernandez ALP [Catalytic activity/Vol] 69 U/L Normal 46-116 [facility] Comment on above: Performed By: #### C MP, TSH #### [facility] [address] [address] [address] Shayy Hernandez ALT [Catalytic activity/Vol] 32 U/L Normal 14-59 [facility] Comment on above: Performed By: #### C MP, TSH #### [facility] [address] [address] [address] Shayy Hernandez Anion gap [Moles/Vol] 13.9 mmol/L Normal [facility] Comment on above: Performed By: #### C MP, TSH #### [facility] [address] [place] [address] Dr. Shayy Hernandez AST [Catalytic activity/Vol] 27 U/L Normal 15-37 [facility] Comment on above: Performed By: #### C MP, TSH #### [facility] [address] [address] [address] Shayy Hernandez Bilirubin [Mass/Vol] 0.6 mg/dL Normal 0.2-1.0 [facility] Comment on above: Performed By: #### C MP, TSH #### [facility] [address] [place] [address] Dr. Shayy Hernandez Calcium [Mass/Vol] 8.9 mg/dL Normal 8.5-10.1 [facility] Comment on above: Performed By: #### C MP, TSH #### [facility] [address] [address] [address] Shayy Hernandez Chloride [Moles/Vol] 105 mmol/L Normal 98-107 [facility] Comment on above: Performed By: #### C MP, TSH #### [facility] [address] [address] [address] Shayy Hernandez CO2 [Moles/Vol] 24.3 mmol/L Normal 21.0-32.0 [facility] Comment on above: Performed By: #### C MP, TSH #### [facility] [address] [address] [address] Shayy Hernandez Creatinine [Mass/Vol] 0.94 mg/dL Normal 0.55-1.02 [facility] Comment on above: Performed By: #### C MP, TSH #### [facility] [address] [address] [address] Shayy Hernandez EGFR-AF TUVALUAN >71 Normal >=60 [facility] Comment on above: Performed By: #### C MP, TSH #### [facility] [address] [address] [address] Shayy Hernandez EGFR-NON AF TUVALUAN 59 mL/min/1.73m2 Critically low >=60 [facility] Comment on above: Performed By: #### C MP, TSH #### [facility] [address] [address] [address] Shayy Hernandez Globulin (S) [Mass/Vol] 3.1 g/dL Normal [facility] Comment on above: Performed By: #### C MP, TSH #### [facility] [address] [address] [address] Shayy Hernandez Glucose [Mass/Vol] 118 mg/dL Critically high 74-106 [facility] Comment on above: Performed By: #### C MP, TSH #### [facility] [address] [address] [address] Shayy Hernandez Potassium [Moles/Vol] 3.2 mmol/L Critically low 3.5-5.1 [facility] Comment on above: Performed By: #### C MP, TSH #### [facility] [address] [address] [address] Shayy Hernandez Protein [Mass/Vol] 6.9 g/dL Normal 6.4-8.2 [facility] Comment on above: Performed By: #### C MP, TSH #### [facility] [address] [address] [address] Shayy Hernandez Sodium [Moles/Vol] 140 mmol/L Normal 136-145 [facility] Comment on above: Performed By: #### C MP, TSH #### [facility] [address] [address] [address] Shayy Hernandez Urea nitrogen [Mass/Vol] 13.0 mg/dL Normal 7.0-18.0 [facility] Comment on above: Performed By: #### C MP, TSH #### [facility] [address] [address] [address] Shayy Hernandez Urea nitrogen/Creatinine [Mass ratio] 13.8 mg/mg Normal [facility] Comment on above: Performed By: #### C MP, TSH #### [facility] [address] [address] [address] Shayy Hernandez TSHon 10-20-2022 TSH 1.896 uIU/mL Normal 0.358-3.740 [facility] Comment on above: Performed By: #### C MP, TSH #### [facility] [address] [address] [address] Shayy Hernandez COVID + FLU Quick Testingon 10-19-2022 SARS-CoV-2 (COVID-19) RNA BEKAH+probe Ql (Unsp spec) Negative [facility] Other COVID + FLU Quick Testing Negative [facility] Other Quick Strepon 10-19-2022 S. pyogenes Org specific cx Ql (Throat) Positive [facility] Other Quick Strep [facility] Other COVID/FLU/RSV RT-PCRon 10-08 SARS-CoV-2 (COVID-19) RNA BEKAH+probe Ql (Unsp spec) Negative [facility] Other COVID/FLU/RSV RT-PCR Negative [facility] Other Quick Strepon 10-08-2022 S. pyogenes Org specific cx Ql (Throat) Negative [facility] Other Quick Strep [facility] Other CBC AUTO DIFFon 08-28-2022 BASO # 0.0 103/ul Normal 0.0-0.1 [facility] Comment on above: Performed By: #### C BC #### [facility] [address] [place] [address] Dr. Shayy Hernandez Basophils/100 WBC (Bld) 0.8 % Normal 0.2-2.0 [facility] Comment on above: Performed By: #### C BC #### [facility] [address] [place] [address] Dr. Shayy Hernandez EO # 0.1 103/ul Normal 0.0-0.7 [facility] Comment on above: Performed By: #### C BC #### [facility] [address] [place] [address] Dr. Shayy Hernandez Eosinophils/100 WBC (Bld) 2.5 % Normal 0.9-7.0 [facility] Comment on above: Performed By: #### C BC #### [facility] [address] [place] [address] Dr. Shayy Hernandez Erythrocyte distribution width (RBC) [Ratio] 12.6 % Normal 11.0-15.0 [facility] Comment on above: Performed By: #### C BC #### [facility] [address] [place] [address] Dr. Shayy Hernandez Hematocrit (Bld) [Volume fraction] 37.6 % Normal 36.0-48.0 [facility] Comment on above: Performed By: #### C BC #### [facility] [address] [place] [address] Dr. Shayy Hernandez Hemoglobin (Bld) [Mass/Vol] 12.6 g/dL Normal 12.0-16.0 [facility] Comment on above: Performed By: #### C BC #### [facility] [address] [place] [address] Dr. Shayy Hernandez IG # 0.01 10e3/ul Normal 0.00-0.03 [facility] Comment on above: Performed By: #### C BC #### [facility] [address] [place] [address] Dr. Shayy Hernandez IG % 0.2 % Normal 0.0-0.5 [facility] Comment on above: Performed By: #### C BC #### [facility] [address] [place] [address] Dr. Shayy Hernandez LYMPH # 1.6 103/ul Normal 1.2-3.8 [facility] Comment on above: Performed By: #### C BC #### [facility] [address] [place] [address] Dr. Shayy Hernandez Lymphocytes/100 WBC (Bld) 31.4 % Normal 20.5-60.0 [facility] Comment on above: Performed By: #### C BC #### [facility] [address] [place] [address] Dr. Shayy Hernandez MANUAL DIFF REQ NO Normal [facility] Comment on above: Performed By: #### C BC #### [facility] [address] [place] [address] Dr. Shayy Hernandez MCH (RBC) [Entitic mass] 29.4 pg Normal 26.7-34.0 [facility] Comment on above: Performed By: #### C BC #### [facility] [address] [place] [address] Dr. Shayy Hernandez MCHC (RBC) [Mass/Vol] 33.5 g/dL Normal 29.9-35.2 [facility] Comment on above: Performed By: #### C BC #### [facility] [address] [place] [address] Dr. Shayy Hernandez MCV (RBC) [Entitic vol] 87.9 fL Normal 81.0-99.0 [facility] Comment on above: Performed By: #### C BC #### [facility] [address] [place] [address] Dr. Shayy Hernandez MONO # 0.5 103/ul Normal 0.3-0.8 [facility] Comment on above: Performed By: #### C BC #### [facility] [address] [place] [address] Dr. Shayy Hernandez Monocytes/100 WBC (Bld) 8.6 % Normal 1.7-12.0 [facility] Comment on above: Performed By: #### C BC #### [facility] [address] [address] [address] Shayy Hernandez NEUT # 3.0 103/ul Normal 1.4-6.5 [facility] Comment on above: Performed By: #### C BC #### [facility] [address] [place] [address] Dr. Shayy Hernandez Neutrophils/100 WBC (Bld) 56.5 % Normal 43.0-75.0 [facility] Comment on above: Performed By: #### C BC #### [facility] [address] [place] [address] Dr. Shayy Hernandez Platelet mean volume (Bld) [Entitic vol] 10.1 fL Normal 9.5-13.5 [facility] Comment on above: Performed By: #### C BC #### [facility] [address] [place] [address] Dr. Shayy Hernandez PLT 193 103/ul Normal 150-450 [facility] Comment on above: Performed By: #### C BC #### [facility] [address] [place] [address] Dr. Shayy Hernandez RBC 4.28 106/ul Normal 4.20-5.40 [facility] Comment on above: Performed By: #### C BC #### [facility] [address] [place] [address] Dr. Shayy Hernandez WBC 5.2 103/ul Normal 4.0-11.0 [facility] Comment on above: Performed By: #### C BC #### [facility] [address] [place] [address] Dr. Shayy Hernandez ER URINE PROFILEon 2 Bilirubin Ql (U) Negative Normal NEGATIVE [facility] Comment on above: Performed By: #### F T4 #### [facility] [address] [place] [address] Dr. Shayy Hernandez Clarity (U) CLEAR Normal CLEAR [facility] Comment on above: Performed By: #### F T4 #### [facility] [address] [place], [place] [id number] Dr. Shayy Hernandez Color (U) LT. YELLOW Normal YELLOW [facility] Comment on above: Performed By: #### F T4 #### [facility] [address] [place] [address] Dr. Shayy MEYER A micrscopic examina tion will be performed if indicated. Normal [facility] Comment on above: Performed By: #### F T4 #### [facility] [address] [place] [address] Dr. Shayy Hernandez Glucose Ql (U) Negative Normal NEGATIVE [facility] Comment on above: Performed By: #### F T4 #### [facility] [address] [place] [address] Dr. Shayy Hernandez Hemoglobin Ql (U) Negative Normal NEGATIVE [facility] Comment on above: Performed By: #### F T4 #### [facility] [address] [place] [address] Dr. Shayy Hernandez Ketones Ql (U) Negative Normal NEGATIVE [facility] Comment on above: Performed By: #### F T4 #### [facility] [address] [place] [address] Dr. Shayy Hernandez LEUKOCYTES Negative Normal NEGATIVE [facility] Comment on above: Performed By: #### F T4 #### [facility] [address] [place] [address] Dr. Shayy Hernandez Nitrite Ql (U) Negative Normal NEGATIVE [facility] Comment on above: Performed By: #### F T4 #### [facility] [address] [place] [address] Dr. Shayy Hernandez pH (U) 7.5 [pH] Normal 5-9 [facility] Comment on above: Performed By: #### F T4 #### [facility] [address] [place] [address] Dr. Shayy Hernandez SPEC GRAVITY 1.010 Normal 1.005-<=1.0 25 [facility] Comment on above: Performed By: #### F T4 #### [facility] [address] [place] [address] Dr. Shayy Hernandez UA PROTEIN Negative Normal NEGATIVE/ TRACE [facility] Comment on above: Performed By: #### F T4 #### [facility] [address] [address] [address] Shayy Hernandez UR MICRO IND NOT INDICATED Normal [facility] Comment on above: Performed By: #### F T4 #### [facility] [address] [address] [address] Shayy Hernandez Urobilinogen Qn (U) 0.2 {Marco A'U}/dL Normal 0.2 - 1. 0 [facility] Comment on above: Performed By: #### F T4 #### [facility] [address] [address] [address] Shayy Hernandez PROF CHEM 8 (BAS METB)on Anion gap [Moles/Vol] 9.8 mmol/L Normal [facility] Comment on above: Performed By: #### B MP #### [facility] [address] [place] [address] Dr. Shayy Hernandez Calcium [Mass/Vol] 9.1 mg/dL Normal 8.5-10.1 [facility] Comment on above: Performed By: #### B MP #### [facility] [address] [place] [address] Dr. Shayy Hernandez Chloride [Moles/Vol] 105 mmol/L Normal 98-107 [facility] Comment on above: Performed By: #### B MP #### [facility] [address] [place] [address] Dr. Shayy Hernandez CO2 [Moles/Vol] 27.6 mmol/L Normal 21.0-32.0 [facility] Comment on above: Performed By: #### B MP #### [facility] [address] [place] [address] Dr. Shayy Hernandez Creatinine [Mass/Vol] 1.07 mg/dL Critically high 0.55-1.02 [facility] Comment on above: Performed By: #### B MP #### [facility] [address] [place] [address] Dr. Shayy Hernandez EGFR-AF TUVALUAN >60 Normal >=60 [facility] Comment on above: Performed By: #### B MP #### [facility] [address] [place], [place] [address] Dr. Shayy Hernandez EGFR-NON AF TUVALUAN 51 mL/min/1.73m2 Critically low >=60 [facility] Comment on above: Performed By: #### B MP #### [facility] [address] [address] [address] Shayy Hernandez Glucose [Mass/Vol] 91 mg/dL Normal 74-106 [facility] Comment on above: Performed By: #### B MP #### [facility] [address] [address] [address] Shayy Hernandez Potassium [Moles/Vol] 3.4 mmol/L Critically low 3.5-5.1 [facility] Comment on above: Performed By: #### B MP #### [facility] [address] [address] [address] Shayy Hernandez Sodium [Moles/Vol] 139 mmol/L Normal 136-145 [facility] Comment on above: Performed By: #### B MP #### [facility] [address] [address] [address] Shayy Hernandez Urea nitrogen [Mass/Vol] 19.0 mg/dL Critically high 7.0-18.0 [facility] Comment on above: Performed By: #### B MP #### [facility] [address] [address] [address] Shayy Hernandez Urea nitrogen/Creatinine [Mass ratio] 17.8 mg/mg Normal [facility] Comment on above: Performed By: #### B MP #### [facility] [address] [address] [address] Shayy Hernandez XR LSPINE 2_3 VIEWSon 2021 XR LSPINE 2_3 VIEWS EXAMINATION: XR LSPI NE 2_3 VIEWS HISTORY: Pain ; acute lumbar pain; no known injury COMPARISON: CT abdomen pelvis 05/09/2021 FINDINGS: BONES: 8 mm anterior listhesis of L5 on S1 secondary to bilateral pars interarticularis defects. Degenerative endplate sclerosis of normal height and alignment of the remaining vertebral bodies. L5 and S1. DISC SPACES: Marked narrowing L5-S1. PARASPINOUS: Negative. No paraspinous abnormality is seen. OTHER: Negative. IMPRESSION: 1. L5-S1 marked degenerative disc disease and grade 2 anterior listhesis; not appreciably changed. 2. No appreciable acute abnormality. Electronically authenticated by: BUCK AGUIRRE Date: 2022-08-28 13:56 Normal [facility] PROF 14(COMP METB)on 022 Albumin [Mass/Vol] 3.9 g/dL Normal 3.4-5.0 [facility] Comment on above: Performed By: #### C MP #### [facility] [address] [address] [address] Shayy Hernandez Albumin/Globulin [Mass ratio] 1.4 {ratio} Normal [facility] Comment on above: Performed By: #### C MP #### [facility] [address] [place] [address] Dr. Shayy Hernandez ALP [Catalytic activity/Vol] 67 U/L Normal 46-116 [facility] Comment on above: Performed By: #### C MP #### [facility] [address] [address] [address] Shayy Hernandez ALT [Catalytic activity/Vol] 28 U/L Normal 14-59 [facility] Comment on above: Performed By: #### C MP #### [facility] [address] [address] [address] Shayy Hernandez Anion gap [Moles/Vol] 12.2 mmol/L Normal [facility] Comment on above: Performed By: #### C MP #### [facility] [address] [address] [address] Shayy Hernandez AST [Catalytic activity/Vol] 15 U/L Normal 15-37 [facility] Comment on above: Performed By: #### C MP #### [facility] [address] [address] [address] Shyay Hernandez Bilirubin [Mass/Vol] 0.6 mg/dL Normal 0.2-1.0 [facility] Comment on above: Performed By: #### C MP #### [facility] [address] [address] [address] Shayy Hernandez Calcium [Mass/Vol] 8.7 mg/dL Normal 8.5-10.1 [facility] Comment on above: Performed By: #### C MP #### [facility] [address] [address] [address] Shayy Hernandez Chloride [Moles/Vol] 106 mmol/L Normal 98-107 [facility] Comment on above: Performed By: #### C MP #### [facility] [address] [address] [address] Shayy Hernandez CO2 [Moles/Vol] 28.2 mmol/L Normal 21.0-32.0 [facility] Comment on above: Performed By: #### C MP #### [facility] [address] [place] [address] Dr. Shayy Hernandez Creatinine [Mass/Vol] 1.08 mg/dL Critically high 0.55-1.02 [facility] Comment on above: Performed By: #### C MP #### [facility] [address] [address] [address] Shayy Hernandez EGFR-AF TUVALUAN >60 Normal >=60 [facility] Comment on above: Performed By: #### C MP #### [facility] [address] [place] [address] Dr. Shayy Hernandez EGFR-NON AF TUVALUAN 50 mL/min/1.73m2 Critically low >=60 [facility] Comment on above: Performed By: #### C MP #### [facility] [address] [place] [address] Dr. Shayy Hernandez Globulin (S) [Mass/Vol] 2.8 g/dL Normal [facility] Comment on above: Performed By: #### C MP #### [facility] [address] [address] [address] Shayy Hernandez Glucose [Mass/Vol] 127 mg/dL Critically high 74-106 [facility] Comment on above: Performed By: #### C MP #### [facility] [address] [place] [address] Dr. Shayy Hernandez Potassium [Moles/Vol] 3.4 mmol/L Critically low 3.5-5.1 [facility] Comment on above: Performed By: #### C MP #### [facility] [address] [address] [address] Shayy Hernandez Protein [Mass/Vol] 6.7 g/dL Normal 6.4-8.2 [facility] Comment on above: Performed By: #### C MP #### [facility] [address] [address] [address] Shayy Hernandez Sodium [Moles/Vol] 143 mmol/L Normal 136-145 [facility] Comment on above: Performed By: #### C MP #### [facility] [address] [place] [address] Dr. Shayy Hernandez Urea nitrogen [Mass/Vol] 16.0 mg/dL Normal 7.0-18.0 [facility] Comment on above: Performed By: #### C MP #### [facility] [address] [address] [address] Shayy Hernandez Urea nitrogen/Creatinine [Mass ratio] 14.8 mg/mg Normal [facility] Comment on above: Performed By: #### C MP #### [facility] [address] [place] [address] Dr. Shayy Hernandez COVID Quick Testingon 2021 Result Negative [facility] Other Quick Fluon 04-11-2022 FLUAV Ab CF (S) [Titer] Negative [facility] Other FLUBV Ab CF (S) [Titer] Negative [facility] Other Quick Strepon 04-11-2022 S. pyogenes Org specific cx Ql (Throat) Positive [facility] Other Quick Strep [facility] Other ER URINE PROFILEon 2 Bilirubin Ql (U) Negative Normal NEGATIVE [facility] Comment on above: Performed By: #### F T4 #### [facility] [address] [place] [address] Dr. Shayy Hernandez Clarity (U) CLEAR Normal CLEAR [facility] Comment on above: Performed By: #### F T4 #### [facility] [address] [place] [address] Dr. Shayy Hernandez Color (U) LT. YELLOW Normal YELLOW [facility] Comment on above: Performed By: #### F T4 #### [facility] [address] [place] [address] Dr. Shayy Hernandez ERUAHD A micrscopic examina tion will be performed if indicated. Normal [facility] Comment on above: Performed By: #### F T4 #### [facility] [address] [place] [address] Dr. Shayy Hernandez Glucose Ql (U) Negative Normal NEGATIVE [facility] Comment on above: Performed By: #### F T4 #### [facility] [address] [place] [address] Dr. Shayy Hernandez Hemoglobin Ql (U) Negative Normal NEGATIVE [facility] Comment on above: Performed By: #### F T4 #### [facility] [address] [place] [address] Dr. Shayy Hernandez Ketones Ql (U) Negative Normal NEGATIVE [facility] Comment on above: Performed By: #### F T4 #### [facility] [address] [place] [address] Dr. Shayy Hernandez LEUKOCYTES Negative Normal NEGATIVE [facility] Comment on above: Performed By: #### F T4 #### [facility] [address] [place] [address] Dr. Shayy Hernandez Nitrite Ql (U) Negative Normal NEGATIVE [facility] Comment on above: Performed By: #### F T4 #### [facility] [address] [place] [address] Dr. Shayy Hernandez pH (U) 7.5 [pH] Normal 5-9 [facility] Comment on above: Performed By: #### F T4 #### [facility] [address] [place] [address] Dr. Shayy Hernandez SPEC GRAVITY <=1.005 Abnormal 1.005-<=1.0 25 [facility] Comment on above: Performed By: #### F T4 #### [facility] [address] [place] [address] Dr. Shayy Hernandez UA PROTEIN Negative Normal NEGATIVE/ TRACE [facility] Comment on above: Performed By: #### F T4 #### [facility] [address] [place] [address] Dr. Shayy Hernandez UR MICRO IND NOT INDICATED Normal [facility] Comment on above: Performed By: #### F T4 #### [facility] [address] [place] [address] Dr. Shayy Hernandez Urobilinogen Qn (U) 0.2 {Marco A'U}/dL Normal 0.2 - 1. 0 [facility] Comment on above: Performed By: #### F T4 #### [facility] [address] [place] [address] Dr. Shayy Hernandez ALDOSTERONE, 24 HOUR URINEon 02-04-2022 Aldosterone (24H U) [Mass/Time] 3.0 ug/24hr Normal 3.0-<28.1 [facility] Comment on above: Order Comment: Speci men Type: URINE SPECIMEN Ordering Facility: [facility] Address: [address] [place] [address] Performed By: #### L [id number] #### [facility] CLIA [id number] [address] [place] [address] OF [facility] ALDOSTERONE/DIRECT RENIN RAT IOon 02-04-2022 LENORA RENIN RATIO 4.9 High <3.8 [facility] Comment on above: Order Comment: Speci men Type: BLOOD SPECIMEN Ordering Facility: [facility] Address: [address] [place] [address] Result Comment: A ra darek of aldosterone in ng/dL to direct renin in pg/mL greater than or equal to 3.8 is a positive screening test result for primary aldosteronism, when aldosterone is greater than or equal to 15 ng/dL. Performed By: #### A LDREN #### [facility] CLIA [id number] [address] [place] [address] [place] Aldosterone [Mass/Vol] 10.3 ng/dL Normal 0.0-<35.4 [facility] Comment on above: Order Comment: Karoline yang Type: BLOOD SPECIMEN Ordering Facility: [facility] Address: [address] [place] [address] Result Comment: The reference interval for serum/plasma aldosterone is based on a normal sodium intake and upright position. High sodium intake may suppress aldosterone and low sodium intake may increase aldosterone. The supine reference interval is <23.7 ng/dL. A ratio of aldosterone in ng/dL to direct renin in pg/mL greater than or equal to 3.8 is a positive screening test result for primary aldosteronism, when aldosterone is greater than or equal to 15 ng/dL. Performed By: #### A LDREN #### [facility] CLIA [id number] [address] [place] [address] [place] DIRECT RENIN 2.1 pg/mL Low 3.6-81.6 [facility] Comment on above: Order Comment: Karoline yang Type: BLOOD SPECIMEN Ordering Facility: [facility] Address: [address] [place] [address] Result Comment: The reference interval for direct renin is based on an upright position. The supine reference intervals are: Age <41 years: 3.2-33.2 pg/mL Age >=41 years: 2.5-45.1 pg/mL A ratio of aldosterone in ng/dL to direct renin in pg/mL greater than or equal to 3.8 is a positive screening test result for primary aldosteronism, when aldosterone is greater than or equal to 15 ng/dL. Performed By: #### A LDREN #### [facility] CLIA [id number] [address] [place] [address] [place] PATIENT UPRIGHT OR SUPINE Upright Normal [facility] Comment on above: Order Comment: Karoline yang Type: BLOOD SPECIMEN Ordering Facility: [facility] Address: [address] [place] [address] Performed By: #### A LDREN #### [facility] CLIA [id number] [address] [facility] [address] OF [facility] Comprehensive metabolic 2000 panelon 02-04-2022 Albumin [Mass/Vol] 4.8 g/dL Normal 3.9-4.9 [facility] Comment on above: Order Comment: Speci men Type: BLOOD SPECIMEN Ordering Facility: [facility] Address: [address] [place] [address] Performed By: #### 2 4323-8 #### [facility] CLIA [id number] [address] [place] [address] ALP [Catalytic activity/Vol] 79 U/L Normal 34-123 [facility] Comment on above: Order Comment: Speci men Type: BLOOD SPECIMEN Ordering Facility: [facility] Address: [address] [place] [address] Performed By: #### 2 4323-8 #### [facility] CLIA [id number] [address] [place] [address] ALT [Catalytic activity/Vol] 21 U/L Normal 7-38 [facility] Comment on above: Order Comment: Speci men Type: BLOOD SPECIMEN Ordering Facility: [facility] Address: [address] [place] [address] Performed By: #### 2 4323-8 #### [facility] CLIA [id number] [address] [place] [address] Anion gap [Moles/Vol] 12 mmol/L Normal 9-18 [facility] Comment on above: Order Comment: Speci men Type: BLOOD SPECIMEN Ordering Facility: [facility] Address: [address] [place] [address] Performed By: #### 2 4323-8 #### [facility] CLIA [id number] [address] [place] [address] AST [Catalytic activity/Vol] 20 U/L Normal 13-35 [facility] Comment on above: Order Comment: Speci men Type: BLOOD SPECIMEN Ordering Facility: [facility] Address: [address] [address] Performed By: #### 2 4323-8 #### [facility] CLIA [id number] [address] [place] [address] Bilirubin [Mass/Vol] 0.6 mg/dL Normal 0.2-1.3 [facility] Comment on above: Order Comment: Speci men Type: BLOOD SPECIMEN Ordering Facility: [facility] Address: [address] [address] Performed By: #### 2 4323-8 #### [facility] CLIA [id number] [address] [place] [address] Calcium [Mass/Vol] 9.6 mg/dL Normal 8.5-10.2 [facility] Comment on above: Order Comment: Speci men Type: BLOOD SPECIMEN Ordering Facility: [facility] Address: [address] [address] Performed By: #### 2 4323-8 #### [facility] CLIA [id number] [address] [place] [address] Chloride [Moles/Vol] 105 mmol/L Normal 97-105 [facility] Comment on above: Order Comment: Speci men Type: BLOOD SPECIMEN Ordering Facility: [facility] Address: [address] [address] Performed By: #### 2 4323-8 #### [facility] CLIA [id number] [address] [place] [address] CO2 [Moles/Vol] 26 mmol/L Normal 22-30 [facility] Comment on above: Order Comment: Speci men Type: BLOOD SPECIMEN Ordering Facility: [facility] Address: [address] [address] Performed By: #### 2 4323-8 #### [facility] CLIA [id number] [address] [place] [address] Creatinine [Mass/Vol] 1.08 mg/dL High 0.58-0.96 [facility] Comment on above: Order Comment: Karoline yang Type: BLOOD SPECIMEN Ordering Facility: [facility] Address: [address] [id number] Performed By: #### 2 4323-8 #### [facility] CLIA [id number] [address] [place] [address] ESTIMATED GLOMERULAR FILTRATION RATE 56 mL/min/1.73m??? Low >=60 [facility] Comment on above: Order Comment: Karoline yang Type: BLOOD SPECIMEN Ordering Facility: [facility] Address: [address] [place] [address] Result Comment: Tashia mated Glomerular Filtration Rate (eGFR) is calculated using the 2020 CKD-EPI creatinine equation. This equation utilizes serum creatinine, sex, and age as parameters. The creatinine assay has traceable calibration to isotope dilution-mass spectrometry. Refer to KDIGO guidelines for clinical interpretation. In patients with unstable renal function, e.g. those with acute kidney injury, the eGFR may not accurately reflect actual GFR. Performed By: #### 2 4323-8 #### [facility] CLIA [id number] [address] [place] [address] Glucose [Mass/Vol] 111 mg/dL High 74-99 [facility] Comment on above: Order Comment: Karoline yang Type: BLOOD SPECIMEN Ordering Facility: [facility] Address: [address] [place] [address] Result Comment: The [place] [employer] (ADA) provides guidance for cutoff values for fasting glucose and random glucose. The ADA defines fasting as no caloric intake for at least 8 hours. Fasting plasma glucose results between 100 to 125 mg/dL indicate increased risk for diabetes (prediabetes). Fasting plasma glucose results greater than or equal to 126 mg/dL meet the criteria for diagnosis of diabetes. In the absence of unequivocal hyperglycemia, results should be confirmed by repeat testing. In a patient with classic symptoms of hyperglycemia or hyperglycemic crisis, random plasma glucose results greater than or equal to 200 mg/dL meet the criteria for diagnosis of diabetes. Reference: Standards of Medical Care in Diabetes 2016, [place] [employer]. Diabetes Care. 2016.39(Suppl 1). Performed By: #### 2 4323-8 #### [facility] CLIA [id number] [address] [place] [address] Potassium [Moles/Vol] 3.9 mmol/L Normal 3.7-5.1 [facility] Comment on above: Order Comment: Speci men Type: BLOOD SPECIMEN Ordering Facility: [facility] Address: [address] [place] [address] Performed By: #### 2 4323-8 #### [facility] CLIA [id number] [address] [place] [address] Protein [Mass/Vol] 6.9 g/dL Normal 6.3-8.0 [facility] Comment on above: Order Comment: Speci men Type: BLOOD SPECIMEN Ordering Facility: [facility] Address: [address] [place] [address] Performed By: #### 2 4323-8 #### [facility] CLIA [id number] [address] [place] [address] Sodium [Moles/Vol] 143 mmol/L Normal 136-144 [facility] Comment on above: Order Comment: Speci men Type: BLOOD SPECIMEN Ordering Facility: [facility] Address: [address] [place] [address] Performed By: #### 2 4323-8 #### [facility] CLIA [id number] [address] [place] [address] Urea nitrogen [Mass/Vol] 11 mg/dL Normal 7-21 [facility] Comment on above: Order Comment: Speci men Type: BLOOD SPECIMEN Ordering Facility: [facility] Address: [address] [place] [address] Performed By: #### 2 4323-8 #### [facility] CLIA [id number] [address] [place] [address] Sodium (24H U) [Moles/Time]o n 02-04-2022 PERIOD (HRS) 24 hours Normal [facility] Comment on above: Order Comment: Speci men Type: TIMED URINE SPECIMEN Ordering Facility: [facility] Address: [address] [place] [address] Performed By: #### 2 956-1 #### [facility] CLIA [id number] [address] [place] [address] LAB CLIA [id number] [address] [place] [address] VOLUME (ML) 1925 mL Normal [facility] Comment on above: Order Comment: Speci men Type: TIMED URINE SPECIMEN Ordering Facility: [facility] Address: [address] [place] [address] Performed By: #### 2 956-1 #### [facility] CLIA [id number] [address] [place] [address] LAB CLIA [id number] [address] [place], [place] [address] Sodium 24h Ur-sRateon 2021 Sodium (24H U) [Moles/Time] 231 mmol/24 hr High 40-220 [facility] Comment on above: Order Comment: Speci men Type: TIMED URINE SPECIMEN Ordering Facility: [facility] Address: [address] [place] [address] Performed By: #### 2 956-1 #### [facility] CLIA [id number] [address] [place] [address] LAB CLIA [id number] [address] [place], [place] [address] CNPKarina 01-01-2022 CNPN Telephone (ENDOMN) ----- SYED MICHELLE ([id number]) 1950 F Date Time Provider Department 01/01/22 ASHANTI FOOTE During your visit today, we recorded the following information about you: Arlette Carias Out Of Town Collection Clerk 01/01/2022 12:27 PM Signed Received various outside medical records. Indexed to chart. Ashanti Foote MD 01/23/2022 4:12 PM Signed Noted. Thanks, Ashanti Foote MD, MPH Allergies As of Date: 01/01/2022 Noted Allergy Reaction SULFA (SULFONAMIDE ANTIBIOTICS) 10/11/2012 4 - Hives LINACLOTIDE 12/24/2021 16 - Unknown Date Reviewed: 12/24/2021 Reviewed by: Theodore Henderson MA - Fully Assessed Reason for Visit: Received Outside Medical Records [[id number]] Cmt: Referral Documents Prescriptions as of 01/23/2022 - sodium chloride 1 gram tab Take 2 tablets by mouth three times daily. - hydrALAZINE (APRESOLINE) 25 mg tablet Take 25 mg by mouth three times daily with meals. - SENNA PLUS 8.6-50 mg per tablet Take 2 tablets by mouth daily at bedtime. - spironolactone (ALDACTONE) 25 mg tablet Take 25 mg by mouth once daily. 1/2 tablet as needed - aspirin, enteric coated (ASPIRIN, ENTERIC COATED) 81 mg EC tablet Take 81 mg by mouth once daily. - carvedilol (COREG) 25 mg tablet Take 25 mg by mouth twice daily. - FLUoxetine (PROZAC) 10 mg capsule Take 10 mg by mouth once daily. - losartan (COZAAR) 50 mg tablet Take 50 mg by mouth once daily. - magnesium oxide (MAG-OX) 400 mg (241.3 mg magnesium) tablet Take 1 tablet by mouth. - KLOR-CON M20 20 mEq tablet Take 20 mEq by mouth twice daily. - ALPRAZolam (XANAX) 0.25 mg tablet - sertraline (ZOLOFT) 25 mg tablet Take 25 mg by mouth once daily. - atorvastatin (LIPITOR) 80 mg tablet Take 80 mg by mouth once daily. - NICODERM CQ 21 mg/24 hr APPLY 1 PATCH EVERY DAY DIRECTED - nebivolol (BYSTOLIC) 5 mg tablet Take 5 mg by mouth once daily. Problem List As Of Date 01/01/2022 Noted Resolved Breast CA (HCC) [C50.919] 10/11/2012 Memory loss [R41.3] 10/20/2012 Fatigue [R53.83] 10/20/2012 Chest pain [R07.9] 02/12/2015 Abnormal stress test [R94.39] 02/12/2015 Cerebral cavernoma [Q28.3] 05/25/2018 Encounter Status:Closed by ASHANTI FOOTE on 01/23/22 Normal [facility] ALDOSTERONE, 24 HOUR URINEon 12-29-2021 Aldosterone (24H U) [Mass/Time] 4.3 ug/24hr Normal 3.0-<28.1 [facility] Comment on above: Order Comment: Speci men Type: URINE SPECIMEN Ordering Facility: [facility] Address: [address] [place] [address] Performed By: #### L [id number] #### [facility] CLIA [id number] [address] [place] [address] [place] Sodium (24H U) [Moles/Time]o n 12-29-2021 PERIOD (HRS) 24 hours Normal [facility] Comment on above: Order Comment: Speci men Type: TIMED URINE SPECIMEN Ordering Facility: [facility] Address: [address] [place] [address] Performed By: #### 2 956-1 #### [facility] CLIA [id number] [address] [place] [address] [place] [facility] CLIA [id number] [address] [place] [address] VOLUME (ML) 1225 mL Normal [facility] Comment on above: Order Comment: Speci men Type: TIMED URINE SPECIMEN Ordering Facility: [facility] Address: [address] [place] [address] Performed By: #### 2 956-1 #### [facility] CLIA [id number] [facility] CLIA [id number] [address] [place] [address] Sodium 24h Ur-sRateon 2021 Sodium (24H U) [Moles/Time] 107 mmol/24 hr Normal 40-220 [facility] Comment on above: Order Comment: Speci men Type: TIMED URINE SPECIMEN Ordering Facility: [facility] Address: [address] [place] [address] Performed By: #### 2 956-1 #### [facility] CLIA [id number] [address] [place] [address] LAB CLIA [id number] [address] [place] [id number] ALDOSTERONE/DIRECT RENIN RAT IOon 12-24-2021 LENORA RENIN RATIO Normal [facility] Comment on above: Order Comment: Speci men Type: BLOOD SPECIMEN Ordering Facility: [facility] Address: [address] [place] [address] Result Comment: Unab le to calculate because one or more components used in calculation is outside assay range. Performed By: #### A LDREN #### [facility] CLIA [id number] [address] [place] [address] [place] Aldosterone [Mass/Vol] 8.6 ng/dL Normal 0.0-<35.4 [facility] Comment on above: Order Comment: Speci men Type: BLOOD SPECIMEN Ordering Facility: [facility] Address: [address] [place] [address] Result Comment: The reference interval for serum/plasma aldosterone is based on a normal sodium intake and upright position. High sodium intake may suppress aldosterone and low sodium intake may increase aldosterone. The supine reference interval is <23.7 ng/dL. Performed By: #### A LDREN #### [facility] CLIA [id number] [address] [place] [address] [place] DIRECT RENIN <2.1 Low 3.6-81.6 [facility] Comment on above: Order Comment: Speci men Type: BLOOD SPECIMEN Ordering Facility: [facility] Address: [address] [place] [address] Performed By: #### A LDREN #### [facility] CLIA [id number] [address] [place] [address] PATIENT UPRIGHT OR SUPINE Upright Normal [facility] Comment on above: Order Comment: Speci men Type: BLOOD SPECIMEN Ordering Facility: [facility] Address: [address] [place] [address] Performed By: #### A LDREN #### [facility] CLIA [id number] [address] [place] [address] OF [facility] CNOVon 12-24-2021 CNOV Office Visit (ENDOMN ) ----- SYED MICHELLE ([id number]) 1950 F Date Time Provider Department 12/24/21 1:00 PM ASHANTI FOOTE ENDOMN During your visit today, we recorded the following information about you: Pulse Blood pressure Weight Height 65/minute 151/88 59 kg 1.727 m Theodore Henderson MA 12/24/2021 12:39 PM Addendum For the three days before your urine test, please eat a high salt diet (6 grams of salt a day for three days). You can eat a bouillon cube daily for instance for three days. Please get labs done today. Please stop taking nebivolol and only take carvedilol. Talk to your doctor about your blood pressure if it is not controlled. Do not take the spironolactone when you take these tests. Thank you for choosing the [facility] Department of Endocrinology, Diabetes and Metabolism. Did you know that you need to call 48 hours in advance of your scheduled visit, if you are unable to make your appointment? The Endocrinology and Metabolism [place] thanks you for your commitment, because patients not showing to their appointment results in a lost opportunity for patients to receive [facility] health care at the [facility]. To Cancel an appointment, please choose one of the following: - Call the Appointment Call Center at [phone] - From [facility], Go to Appointments ? Cancel Appts If cancelling, consider your need to reschedule to prevent further delays in your care. To Schedule an appointment, please choose one of the following: - Call the Appointment Call Center at [phone] - From [facility], Go to Appointments ? 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 She sees a advanced solutions architect and they recommended she see endocrinology for work up of adrenal issues causing uncontrolled blood pressure. - suppressed renin on 12/05/21. No imaging done including CT adrenal or renal artery US. She was diagnosed with HTN at age 32. Her father and brother have severe HTN. Her father from an intracranial hemorrhage when she was 17 years old. She had brain bleed last February - had severe HTN, found to have bilateral subdural hematomas, self-resolved, did follow with neurosurgery. She had severe HTN during this time and had a bad headache. 150s/80s is pretty usual for her home measurements. She had first taken spironlactone years ago while also on losartan and her BP dropped a lot so this was stopped as a maintenance medication. Dr. Clifton is her new advanced solutions architect. On potassium during breast cancer treatment - was told she has low potassium and is not taking any supplements now. Has family history colon cancer, kidney cancer; no thyroid, pituitary, or adrenal issues She is on hydralazine 25 TID, carvedilol 25 mg BID, losartan 50 mg, nebivolol 5 mg daily, and 12.5 mg spironolactone as needed if BP is very high - has not taken in 2 weeks. She confirmed she is taking both beta blockers. Both PCP and advanced solutions architect change her BP meds. Current Outpatient Medications Medication Sig - SENNA PLUS 8.6-50 mg per tablet Take 2 tablets by mouth daily at bedtime. - spironolactone (ALDACTONE) 25 mg tablet Take 25 mg by mouth once daily. 1/2 tablet as needed - carvedilol (COREG) 25 mg tablet Take 25 mg by mouth twice daily. - losartan (COZAAR) 50 mg tablet Take 50 mg by mouth once daily. - magnesium oxide (MAG-OX) 400 mg (241.3 mg magnesium) tablet Take 1 tablet by mouth. - atorvastatin (LIPITOR) 80 mg tablet Take 80 mg by mouth once daily. - hydrALAZINE (APRESOLINE) 25 mg tablet Take 25 mg by mouth three times daily with meals. - aspirin, enteric coated (ASPIRIN, ENTERIC COATED) 81 mg EC tablet Take 81 mg by mouth once daily. (Patient not taking: Reported on 12/24/2021 ) - FLUoxetine (PROZAC) 10 mg capsule Take 10 mg by mouth once daily. (Patient not taking: Reported on 12/24/2021 ) - KLOR-CON M20 20 mEq tablet Take 20 mEq by mouth twice daily. (Patient not taking: Reported on 12/24/2021 ) - ALPRAZolam (XANAX) 0.25 mg tablet (Patient not taking: Reported on 12/24/2021) - sertraline (ZOLOFT) 25 mg tablet Take 25 mg by mouth once daily. (Patient not taking: Reported on 12/24/2021 ) - NICODERM CQ 21 mg/24 hr APPLY 1 PATCH EVERY DAY DIRECTED (Patient not taking: Reported on 12/24/2021) - nebivolol (BYSTOLIC) 5 mg tablet Take 5 mg by mouth once d (more content not included)... Normal [facility] metabolic 2000 panelon 12-24-2021 Albumin [Mass/Vol] 4.5 g/dL 3.9 - 4.9 g/dL [facility] ALP [Catalytic activity/Vol] 73 U/L 34 - 123 U/L [facility] ALT [Catalytic activity/Vol] 23 U/L 7 - 38 U/L [facility] Anion gap [Moles/Vol] 12 mmol/L 9 - 18 mmol/L [facility] AST [Catalytic activity/Vol] 25 U/L 13 - 35 U/L [facility] Bilirubin [Mass/Vol] 0.5 mg/dL 0.2 - 1.3 mg/dL [facility] Calcium [Mass/Vol] 9.6 mg/dL 8.5 - 10. 2 mg/dL [facility] Chloride [Moles/Vol] 107 mmol/L High 97 - 105 mmol/L [facility] CO2 [Moles/Vol] 21 mmol/L Low 22 - 30 mmol/L [facility] Creatinine [Mass/Vol] 0.95 mg/dL 0.58 - 0.96 mg/dL [facility] Estimated Glomerular Filtration Rate 65 mL/min/1.73m >=60 mL/min/1.73 m [facility] Glucose [Mass/Vol] 81 mg/dL 74 - 99 mg/dL [facility] Potassium [Moles/Vol] 4.2 mmol/L 3.7 - 5.1 mmol/L [facility] Protein [Mass/Vol] 7.1 g/dL 6.3 - 8.0 g/dL [facility] Sodium [Moles/Vol] 140 mmol/L 136 - 144 mmol/L [facility] Urea nitrogen [Mass/Vol] 19 mg/dL 7 - 21 mg/dL [facility] Albumin [Mass/Vol] 4.5 g/dL Normal 3.9-4.9 [facility] Comment on above: Order Comment: Speci men Type: BLOOD SPECIMEN Ordering Facility: [facility] Address: [address] [place] [address] Performed By: #### 2 4323-8 #### [facility] CLIA [id number] [address] [place] [address] ALP [Catalytic activity/Vol] 73 U/L Normal 34-123 [facility] Comment on above: Order Comment: Speci men Type: BLOOD SPECIMEN Ordering Facility: [facility] Address: [address] [place] [address] Performed By: #### 2 4323-8 #### [facility] CLIA [id number] [address] [place] [address] [place] ALT [Catalytic activity/Vol] 23 U/L Normal 7-38 [facility] Comment on above: Order Comment: Speci men Type: BLOOD SPECIMEN Ordering Facility: [facility] Address: [address] [place], [place] [address] Performed By: #### 2 4323-8 #### [facility] CLIA [id number] [address] [place] [address] [place] Anion gap [Moles/Vol] 12 mmol/L Normal 9-18 [facility] Comment on above: Order Comment: Speci men Type: BLOOD SPECIMEN Ordering Facility: [facility] Address: [address] [place], [place] [address] Performed By: #### 2 4323-8 #### [facility] CLIA [id number] [address] [place] [address] [place] AST [Catalytic activity/Vol] 25 U/L Normal 13-35 [facility] Comment on above: Order Comment: Speci men Type: BLOOD SPECIMEN Ordering Facility: [facility] Address: [address] [place], [place] [address] Performed By: #### 2 4323-8 #### [facility] CLIA [id number] [address] [place] [address] [place] Bilirubin [Mass/Vol] 0.5 mg/dL Normal 0.2-1.3 [facility] Comment on above: Order Comment: Speci men Type: BLOOD SPECIMEN Ordering Facility: [facility] Address: [address] [place] [address] Performed By: #### 2 4323-8 #### [facility] CLIA [id number] [address] [place] [address] [place] Calcium [Mass/Vol] 9.6 mg/dL Normal 8.5-10.2 [facility] Comment on above: Order Comment: Speci men Type: BLOOD SPECIMEN Ordering Facility: [facility] Address: [address] [place], [place] [address] Performed By: #### 2 4323-8 #### [facility] CLIA [id number] [address] [place] [address] [place] Chloride [Moles/Vol] 107 mmol/L High 97-105 [facility] Comment on above: Order Comment: Speci men Type: BLOOD SPECIMEN Ordering Facility: [facility] Address: [address] [place] [address] Performed By: #### 2 4323-8 #### [facility] CLIA [id number] [address] [place] [address] [place] CO2 [Moles/Vol] 21 mmol/L Low 22-30 [facility] Comment on above: Order Comment: Speci men Type: BLOOD SPECIMEN Ordering Facility: [facility] Address: [address] [place], [place] [address] Performed By: #### 2 4323-8 #### [facility] CLIA [id number] [address] [place] [address] [place] Creatinine [Mass/Vol] 0.95 mg/dL Normal 0.58-0.96 [facility] Comment on above: Order Comment: Speci men Type: BLOOD SPECIMEN Ordering Facility: [facility] Address: [address] [place], [place] [address] Performed By: #### 2 4323-8 #### [facility] CLIA [id number] [address] [place] [address] [place] ESTIMATED GLOMERULAR FILTRATION RATE 65 mL/min/1.73m??? Normal >=60 [facility] Comment on above: Order Comment: Speci men Type: BLOOD SPECIMEN Ordering Facility: [facility] Address: [address] [place], [place] [address] Result Comment: Tashia mated Glomerular Filtration Rate (eGFR) is calculated using the 2020 CKD-EPI creatinine equation. This equation utilizes serum creatinine, sex, and age as parameters. The creatinine assay has traceable calibration to isotope dilution-mass spectrometry. Refer to KDIGO guidelines for clinical interpretation. In patients with unstable renal function, e.g. those with acute kidney injury, the eGFR may not accurately reflect actual GFR. Performed By: #### 2 4323-8 #### [facility] CLIA [id number] [address] [place] [address] [place] Glucose [Mass/Vol] 81 mg/dL Normal 74-99 [facility] Comment on above: Order Comment: Karoline yang Type: BLOOD SPECIMEN Ordering Facility: [facility] Address: [address] [place] [address] Result Comment: The [place] [employer] (ADA) provides guidance for cutoff values for fasting glucose and random glucose. The ADA defines fasting as no caloric intake for at least 8 hours. Fasting plasma glucose results between 100 to 125 mg/dL indicate increased risk for diabetes (prediabetes). Fasting plasma glucose results greater than or equal to 126 mg/dL meet the criteria for diagnosis of diabetes. In the absence of unequivocal hyperglycemia, results should be confirmed by repeat testing. In a patient with classic symptoms of hyperglycemia or hyperglycemic crisis, random plasma glucose results greater than or equal to 200 mg/dL meet the criteria for diagnosis of diabetes. Reference: Standards of Medical Care in Diabetes 2016, [place] [employer]. Diabetes Care. 2016.39(Suppl 1). Performed By: #### 2 4323-8 #### [facility] CLIA [id number] [address] [place] [address] [place] Potassium [Moles/Vol] 4.2 mmol/L Normal 3.7-5.1 [facility] Comment on above: Order Comment: Karoline yang Type: BLOOD SPECIMEN Ordering Facility: [facility] Address: [address] [place] [address] Performed By: #### 2 4323-8 #### [facility] CLIA [id number] [address] [place] [address] [place] Protein [Mass/Vol] 7.1 g/dL Normal 6.3-8.0 [facility] Comment on above: Order Comment: Speci men Type: BLOOD SPECIMEN Ordering Facility: [facility] Address: [address] [place] [address] Performed By: #### 2 4323-8 #### [facility] CLIA [id number] [address] [place] [address] [place] Sodium [Moles/Vol] 140 mmol/L Normal 136-144 [facility] Comment on above: Order Comment: Speci men Type: BLOOD SPECIMEN Ordering Facility: [facility] Address: [address] [place] [address] Performed By: #### 2 4323-8 #### [facility] CLIA [id number] [address] [place] [address] [place] Urea nitrogen [Mass/Vol] 19 mg/dL Normal 7-21 [facility] Comment on above: Order Comment: Speci men Type: BLOOD SPECIMEN Ordering Facility: [facility] Address: [address] [place] [address] Performed By: #### 2 4323-8 #### [facility] CLIA [id number] [address] [place] [address] [place] HEAD WO CONTRASTon 2020 CT HEAD WO CONTRAST Patient Name: SYED MICHELLE STUDY: CT HEAD WO CONTRAST; 04/02/2021 10:51 am INDICATION: subdural hematoma. COMPARISON: Head CT 02/08/2021 ACCESSION NUMBER(S): [id number] ORDERING CLINICIAN: ANALY ANTHONY TECHNIQUE: Noncontrast axial CT scan of head was performed. Angled reformats in brain and bone windows were generated. The images were reviewed in bone, brain, blood and soft tissue windows. FINDINGS: CSF Spaces: Bilateral lower density bifrontal subdural collections appear unchanged in thickness since prior comparison head CT, measuring up to 7 mm bilaterally. No acute extra-axial hemorrhage is seen. Parenchyma: Decreased size of previously seen right cerebellar density which now measures up to 7 x 6 mm, previously measuring 14 x 8 mm. The molina-white differentiation is intact. There is no mass effect or midline shift. There is no intracranial hemorrhage. Calvarium: Calvarium appears stable. Paranasal sinuses and mastoids: Bilateral ethmoid sinus opacification and fluid level within the left maxillary sinus. IMPRESSION: Stable bifrontal low-density subdural collections. Decreased size of right peripheral cerebellar density, now measuring up to 7 x 6 mm, previously measuring 14 x 8 mm. Electronically signed by: NAE KERR MD Normal [facility] CT Head without Contraston 0 04-02-2021 CT Head limited WO contrast Please click on the link to view the study images Normal [facility]-Neurosurger -[facility] Work Phone: Established Visit (Neurosurg maxime)on 04-02-2021 Established Visit (Neurosurgery) Provider Impressions Ms. 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 She was found to have bilateral subdural hematomas which we have been following. She is overall doing very well with no neurologic complaints. She has no headache. She remains neurologically intact on my exam. I personally reviewed CT of the head without contrast done today and compared to prior imaging, which shows near complete resolution of bilateral subdural hematomas. She can follow-up with me as needed from here on out. She can resume aspirin 81 mg daily now. Chief Complaint Ms. SYED MICHELLE is here for neurosurgical follow-up visit. Active Problems Problems Subdural hematoma (432.1) (S06.5X9A) Family History Father Family history of cerebral hemorrhage (V17.2) (Z82.0) Family history of hypertension (V17.49) (Z82.49) Social History Problems Current every day smoker (305.1) (F17.200) Allergies Medication Sulfa Drugs Recorded By: Zohreh Salcedo; 03/05/2021 11:37:36 AM Current Meds Medication NameInstruction Aspirin 81 MG TABS Atorvastatin Calcium TABS Carvedilol TABS hydrALAZINE HCl - 10 MG Oral Tablet Losartan Potassium TABS Vitals Vital Signs Recorded: 02Apr2021 11:13AM [id number] Height5 ft 8 in Ldomib277 lb BMI Zrgsiurnyb79.53 kg/m2 BSA Calculated1.73 Tobacco Usea) Yes Fall Screeninga) No falls within the last year Pain Scale0/10 Time Prep time on date of the patient encounter: 5 minutes. Time spent directly with patient/family/caregiver: 10 minutes. Documentation time: 5 minutes. Total time on date of patient encounter: 20 minutes. Signatures Electronically signed by : Analy Anthony MD; Apr 04 2021 10:09PM EST (Author) Normal [facility] Tobacco Screening.on 021 Fall risk assessment a) No falls within the last year [facility] Work Phone: Tobacco use status [facility] a) Yes [facility] Work Phone: CT HEAD WO CONTRASTon 2020 CT HEAD WO CONTRAST Patient Name: SYED MICHELLE STUDY: CT HEAD WO CONTRAST; 03/05/2021 9:38 am INDICATION: F/U CTH for bilateral SDH's. COMPARISON: Prior exam is from 02/08/2021. ACCESSION NUMBER(S): [id number] ORDERING CLINICIAN: ANALY ANTHONY TECHNIQUE: Routine axial images were obtained from the skull base through the vertex. Brain, subdural, and bone windows were reviewed. FINDINGS: INTRACRANIAL: The ventricles, sulci and basal cisterns were within normal limits. Incidental note is made of mild asymmetry of the lateral ventricles with the right smaller than the left, unchanged. This is probably congenital. There is a persistent hyperdense nodule in the right cerebellum. It measures 12 x 7 mm on axial image 8, compared to 13 x 8 mm previously. It measures [address] density, compared to [address] density previously. Previously, there were mild bilateral hypodense frontoparietal subdural hematomas. Today, there is an acute on chronic right anterolateral frontoparietal subdural hematoma that measures 52 mm AP x 16 mm transversely by 46 mm longitudinally; there is also an acute on chronic anterolateral left frontal subdural hematoma that measures 43 x 8 by 37 mm. These do exert mass effect upon the underlying right frontal parietal lobes and left frontal lobe, but do not result in midline shift. No destructive bone lesion. No depressed skull fracture. No abnormal skull base arterial calcifications. EXTRACRANIAL: There is opacification of multiple bilateral ethmoid air cells. The other imaged paranasal sinuses were clear. Visualized mastoid air cells were clear. IMPRESSION: Development of acute on chronic bilateral subdural hematomas as described, right larger than left. Please see above for details. Nonspecific hyperdense nodule in the right cerebellum does measure very slightly smaller today. Also, CT density in Hounsfield units is mildly less today than it was previously. In the prior report, reference was made to an outside MRI that is not available at this time for comparison, and this was thought to represent a possible cavernous angioma. Due to the slight decrease in size and CT density, it could be that this did have some acute blood associated with it on the prior CT scan. Continued follow-up is warranted. Mild bilateral ethmoid sinusitis. Document Only: The critical information above was relayed directly by me by telephone to ANALY ANTHONY on 03/05/2021 at 9:44 am . Electronically signed by: MARS JIMENEZ MD [facility] Established Visit (Neurosurg maxime)on 03-05-2021 Established Visit (Neurosurgery) Orders SocHx: Current every day smoker Tobacco Use Screening; Status:Complete; Done: 05Mar[address] Head without Contrast; Status:Active; Requested for:02Apr2021; Reason: Unspecified for CT Head without Contrast Patient taking Metformin or Derivatives? : Unknown Radiologist to Determine Optimal Study : Y What are the patient's signs and symptoms? : subdural hematoma Provider Impressions Ms. 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 scan of the head showed the known cavernoma but was otherwise negative; she was admitted for hypertensive urgency at that time and then discharged. She returned to the ED 02/07 with persistent headache; MRI brain now showed small bilateral chronic subdural hematomas R>L without any significant mass-effect. She was treated conservatively and she resumed her aspirin 81 mg daily. She actually feels great and has no complaints. Her headaches have fully resolved. I personally reviewed CT of the head done today (03/05/2021) and compared to prior CT head done on 02/08/2021. There is increased bilateral frontal extra-axial acute on chronic hematoma, right greater than left, with some mild brain compression. She has stable asymmetric ventricles. She is neurologically intact on my exam. I recommended she stop her aspirin 81 mg daily right now. We will get another follow-up CT head without contrast in 4 weeks and follow-up with me at that time. I explained the risks including further expansion of acute on chronic subdural hematoma requiring craniotomy and drainage. Chief Complaint Ms. SYED MICHELLE is here for neurosurgical follow-up visit. Active Problems Problems Subdural hematoma (432.1) (S06.5X9A) Family History Father Family history of cerebral hemorrhage (V17.2) (Z82.0) Family history of hypertension (V17.49) (Z82.49) Social History Problems Current every day smoker (305.1) (F17.200) Allergies Medication Sulfa Drugs Recorded By: Zohreh Salcedo; 03/05/2021 11:37:36 AM Current Meds Medication NameInstruction Aspirin 81 MG TABS Atorvastatin Calcium TABS Carvedilol TABS hydrALAZINE HCl - 10 MG Oral Tablet Losartan Potassium TABS Vitals Vital Signs Recorded: [id number] 11:31AM Sfwlqjstnze11 Kngfurku969 Swwohoizd01 Height5 ft 8 in Kzztpn387 lb BMI Hzyftfuspe22.53 kg/m2 BSA Calculated1.73 Tobacco Usea) Yes Fall Screeninga) No falls within the last year Pain Scale0/10 Time Prep time on date of the patient encounter: 10 minutes. Time spent directly with patient/family/caregiver: 15 minutes. Documentation time: 30 minutes. Total time on date of patient encounter: minutes. Signatures Electronically signed by : Analy Anthony MD; Mar 09 2021 6:11PM EST (Author) Normal [employer] Tobacco Screening.on Fall risk assessment a) No falls within the last year MG-Neurosurger Naomi Work Phone: Tobacco use status [facility] a) Yes MG-Neurosurger Naomi Work Phone: Tobacco Screening. a) Yes MG-Arash rosurger Naomi Work Phone: Admission Risk Screen - Adul ton 02-08-2021 Admission Risk Screen - Adult Allergies: Allergies: sulfa drugs: Unknown Patient Verification: New W ID Band Applied in my Departmentyes Patient Identity Verified Bypatient ID Band FULL Name, include Middle, spelling matches patient's ID used for verificationyes ID Band Matches Patient ID used for Verficationyes ID Band MRN Matches EMR MRNyes Visitor Restriction: Coronavirus Visitor Restriction: Reasonable restrictions to in-person visitors will be observed due to current coronavirus pandemic. Travel History: COVID-19 Screening Completedno exposure or symptoms Advance Directive: Advance Directive/DNRno Advance Directive Information Givenpatient/family declined Eli Fall Screen: History of falling (immediate or previous)no (0) Secondary Diagnosisyes (15) Intravenous Therapy/ Heparin/Saline Lockyes (20) Gait/Transferringnormal/b edrest/wheelchair (0) Ambulatory Aidsnone/bedrest/nurse assist (0) Mental Statusoriented to own ability (0) Score: Low risk (<25). Moderate risk (25-44). High risk (>44).35 Eli InterventionsMODERATE INTERVENTIONS: *Low Interventions Plus: * falls risk band/sticker applied to patient, *yellow non-skid footwear, *instruct to call for assistance before getting out of bed, *bed/chair/bedside commode/toilet alarms, *sensory devices/ambulatory aides available and in reach, *medications reviewed for potential side effects and care planning. Family Violence Screen: Are you or have you been threatened or abused physically, emotionally, or sexually by anyoneno Do you feel UNSAFE going back to the place where you are livingno Clinical assessment: Are there any apparent signs of injuries/behaviors that could be related to abuse/neglectno Social Service Consult for abuse/neglect needed this visitno Functional Screen: Functional Screen: In the recent/past 2-4 weeks, patient or family have noticedno issues that require a speech/language consult at this time AM-PAC- Basic Mobility/Daily Activity: Patient baseline bedboundno Learning Assessment (Patient): Patient is Able to be Assessed for Learningyes Factors Influencing Readiness to Learninformation requested; interest in learning Factors that Impact Ability to Learnnone Devices/Methods Used to Communicateglasses Learning Preferencesaudio; written material Cultural Considerationsnone Developmental Considerationsnone Nondenominational Considerationsnone Learning Assessment (Other Learner): Other learner availableno Depression Screen: During the past month, have you often been bothered by feeling down, depressed or hopelessno During the past month, have you often had little interest or pleasure in doing thingsno Have you had any thoughts of harming anyone elseno [place] Suicide: Risk Screen Not Applicable/Able to Answerable to be screened In the Past Month: Have you wished you were or could go to sleep and not wake upno In the Past Month: Have you had any actual thoughts of killing yourselfno Lifetime: Have you ever done, started to do, or prepared to do anything to end your lifeno [place] Suicide Risknegative Adult Nutrition Screen: Have you recently lost weight without tryingno Have you been eating poorly because of a decreased appetiteno Malnutrition Screening Tool Score0 Malnutrition Screening Tool RiskMST = 0 or 1 Not at risk. Eating well with little or no weight loss Nutrition Consult needed this visitno Can Patient Participate in Room Serviceyes Patient requires Paper Dishes/Plastic Utensilsno Pain Screen: Pain Scalenumerical 0-10 Pain Scale Educationteaching provided Current Pain Level3 = Mild Acceptable Pain Level3 = Mild Expression of Pain (nonverbal)verbalization Chronic Painno Spiritual Screen: Are there any cultural, spiritual, nondenominational practices/values/needs that are important for us to knowno CAGE: [place] an [place] [place]/[place]/ [place] no Vaccinations: Vaccination - Influenza Vaccination Screen: Is it flu season (between and January 09)No Vaccination - Pneumonia Vaccination Screen: Patient has received a previous pneumonia vaccine:no/unknown... Pneumonia vaccine NOT indicated due to:patient/caregiver refusal at this time Latrell: Skin - Latrell Scale: Latrell: Sensory Perception (response to environment)(4) no impairment Latrell: Moisture (degree skin exposed to moisture)(4) rarely moist Latrell: Activity (ability to walk)(3) walks occasionally Latrell: Mobility (amount/control of body movement)(3) slightly limited Latrell: Nutrition (quality of food intake)(3) adequate Latrell: Friction and Shear(3) no apparent problem Latrell: Score20 Significant Indicatiors: Significant Indicators: Complete Pressure Injury: Pressure Injury Present on Admissionno Electronic Signatures: Maya Sanz) (Signed 08-Feb-2021 00:43) Authored: Admis (more content not included)... Normal [facility] CBC AND DIFFERENTIALon 02-08 % AUTOMATED IMMATURE GRAN 0.4 % Normal 0.0 - 0.9 [facility] Comment on above: Result Comment: Susy ture Granulocyte Count (IG) includes promyelocytes, myelocytes and metamyelocytes but does not include bands. Percent differential counts (%) should be interpreted in the context of the absolute cell counts (cells/L). Performed By: #### C BCDF #### [facility] [address] [place] [address] Basophils (Bld) [#/Vol] 0.04 10*3/uL Normal 0.00 - 0.10 [facility] Comment on above: Performed By: #### C BCDF #### [facility] [address] [place] [address] Basophils/100 WBC (Bld) 0.7 % Normal 0.0 - 2.0 [facility] Comment on above: Performed By: #### C BCDF #### [facility] [address] [place] [address] Eosinophils (Bld) [#/Vol] 0.27 10*3/uL Normal 0.00 - 0.70 [facility] Comment on above: Performed By: #### C BCDF #### [facility] [address] [place] [address] Eosinophils/100 WBC (Bld) 4.8 % Normal 0.0 - 6.0 [facility] Comment on above: Performed By: #### C BCDF #### [facility] [address] [place] [address] Erythrocyte distribution width (RBC) [Ratio] 13.1 % Normal 11.5 - 14.5 [facility] Comment on above: Performed By: #### C BCDF #### [facility] [address] [place] [address] Hematocrit (Bld) [Volume fraction] 33.9 % Low 36.0 - 46.0 [facility] Comment on above: Performed By: #### C BCDF #### [facility] [address] [place] [address] Hemoglobin (Bld) [Mass/Vol] 11.0 g/dL Low 12.0 - 16.0 [facility] Comment on above: Performed By: #### C BCDF #### [facility] [address] [place] [address] Lymphocytes (Bld) [#/Vol] 1.57 10*3/uL Normal 1.20 - 4.80 [facility] Comment on above: Performed By: #### C BCDF #### [facility] [address] [place] [address] Lymphocytes/100 WBC (Bld) 27.8 % Normal 13.0 - 44.0 [facility] Comment on above: Performed By: #### C BCDF #### [facility] [address] [place] [address] MCHC (RBC) [Mass/Vol] 32.4 g/dL Normal 32.0 - 36.0 [facility] Comment on above: Performed By: #### C BCDF #### [facility] [address] [place] [address] MCV (RBC) [Entitic vol] 92 fL Normal 80 - 100 [facility] Comment on above: Performed By: #### C BCDF #### [facility] [address] [place] [address] Monocytes (Bld) [#/Vol] 0.48 10*3/uL Normal 0.10 - 1.00 [facility] Comment on above: Performed By: #### C BCDF #### [facility] [address] [place] [address] Monocytes/100 WBC (Bld) 8.5 % Normal 2.0 - 10.0 [facility] Comment on above: Performed By: #### C BCDF #### [facility] [address] [place] [address] Neutrophils (Bld) [#/Vol] 3.26 10*3/uL Normal 1.20 - 7.70 [facility] Comment on above: Performed By: #### C BCDF #### [facility] [address] [place] [address] Neutrophils/100 WBC (Bld) 57.8 % Normal 40.0 - 80.0 [facility] Comment on above: Performed By: #### C BCDF #### [facility] [address] [place] [address] NUCLEATED RBC 0.0 /100 WBC Normal 0.0-0.0 [facility] Comment on above: Performed By: #### C BCDF #### [facility] [address] [place] [address] Platelets (Bld) [#/Vol] 195 10*3/uL Normal 150 - 450 [facility] Comment on above: Performed By: #### C BCDF #### [facility] [address] [place] [address] RBC 3.68 x10E12/L Low 4.00 - 5.20 [facility] Comment on above: Performed By: #### C BCDF #### [facility] [address] [place] [address] WBC (Bld) [#/Vol] 5.6 10*3/uL Normal 4.4 - 11.3 [facility] Comment on above: Performed By: #### C BCDF #### [facility] [address] [place] [address] COAGULATION SCREENon 021 aPTT Coag (Bld) [Time] 25 s Normal 25 - 35 [facility] Comment on above: Result Comment: THE APTT IS NO LONGER USED FOR MONITORING UNFRACTIONATED HEPARIN THERAPY. FOR MONITORING HEPARIN THERAPY, USE THE HEPARIN ASSAY. Performed By: #### C OAGS #### [facility] [address] [place] [address] PT Coag (PPP) [Time] 12.8 s Normal 10.1 - 13.3 [facility] Comment on above: Performed By: #### C OAGS #### [facility] [address] [place] [id number] PT, INR 1.1 Normal 0.9 - 1.1 [facility] Comment on above: Performed By: #### C OAGS #### [place] [address] CORONAVIRUS 2019, SCREEN ASY MPTOMATICon 02-08-2021 SARS-CoV-2 (COVID-19) RNA BEKAH+probe Ql (Unsp spec) Not detected Normal Not Detected [facility] Comment on above: Result Comment: . This assay is designed to detect the ORF1ab and/or S genes of SARS-CoV-2 via nucleic acid amplification. A Not Detected result does not preclude 2019-nCoV infection since the adequacy of sample collection and/or low viral burden may result in presence of viral nucleic acids below the clinical sensitivity of this test method. Fact sheet for providers: www.fda.gov/media/749580/download Fact sheet for patients: www.fda.gov/media/740145/download This test has received FDA Emergency Use Authorization (EUA) and has been verified by [facility] ([facility]). This test is only authorized for the duration of time that circumstances exist to justify the authorization of the emergency use of in vitro diagnostic tests for the detection of SARS-CoV-2 virus and/or diagnosis of COVID-19 infection under section 564(b)(1) of the Act, 21 U.S.C. 360bbb-3(b)(1), unless the authorization is terminated or revoked sooner. [facility] is certified under CLIA-88 as qualified to perform high complexity testing. Testing is performed in the [facility] laboratories located at [address] [place] [address]. Performed By: #### C OVSC ####[id number] [place] [address] Lab Specimen Source Nasal, Nasopharyngeal Normal [facility] Comment on above: Performed By: #### C OVSC ####[id number] [place] [address] CT Angio Neckon 02-08-2021 CTA Neck vessels W contrast IV Normal MG-Neurosurger fran-Kelton Work Phone: CT Head without Contraston 0 02-08-2021 CT Head limited WO contrast Normal MG-Neurosurger fran-Kelton Work Phone: Complete Blood Count + Diffe rentialon 02-08-2021 Basophils/100 WBC (Bld) 0.7 % 0.0 - 2.0 MG-Neurosurger y-Kelton Work Phone: Erythrocyte distribution width (RBC) [Ratio] 13.1 % See Below MG-Neurosurger y-Kelton Work Phone: Comment on above: Reference Range: 11. 5 - 14.5 Hematocrit (Bld) [Volume fraction] 33.9 % below low threshold See Below MG-Neurosurger fran-Kelton Work Phone: Comment on above: Reference Range: 36. 0 - 46.0 Hemoglobin (Bld) [Mass/Vol] 11.0 g/dL below low threshold See Below MG-Neurosurger y-Kelton Work Phone: Comment on above: Reference Range: 12. 0 - 16.0 Lymphocytes/100 WBC (Bld) 27.8 % See Below MG-Neurosurger y-Kelton Work Phone: Comment on above: Reference Range: 13. 0 - 44.0 MCHC (RBC) [Mass/Vol] 32.4 g/dL See Below MG-Neurosurger y-Kelton Work Phone: Comment on above: Reference Range: 32. 0 - 36.0 MCV (RBC) [Entitic vol] 92 fL 80 - 100 MG-Neurosurger y-Kelton Work Phone: Monocytes/100 WBC (Bld) 8.5 % 2.0 - 10.0 MG-Neurosurger y-Kelton Work Phone: Neutrophils/100 WBC (Bld) 57.8 % See Below MG-Neurosurger y-Kelton Work Phone: Comment on above: Reference Range: 40. 0 - 80.0 Platelets (Bld) [#/Vol] 195 10*3/uL 150 - 450 MG-Neurosurger y-Kelton Work Phone: RBC (Bld) [#/Vol] 3.68 {x10E12/L} below low threshold See Below MG-Neurosurger y-Kelton Work Phone: Comment on above: Reference Range: 4.0 0 - 5.20 WBC (Bld) [#/Vol] 5.6 10*3/uL 4.4 - 11.3 MG-Arash rosurger y-Kelton Work Phone: Complete Blood Count + Differential 0.04 {x10E9/L} See Below MG-Neurosurger y-Kelton Work Phone: Comment on above: Reference Range: 0.0 0 - 0.10 Complete Blood Count + Differential 0.27 {x10E9/L} See Below MG-Neurosurger y-Kelton Work Phone: Comment on above: Reference Range: 0.0 0 - 0.70 Complete Blood Count + Differential 0.48 {x10E9/L} See Below MG-Neurosurger y-Kelton Work Phone: Comment on above: Reference Range: 0.1 0 - 1.00 Complete Blood Count + Differential 1.57 {x10E9/L} See Below MG-Neurosurger y-Kelton Work Phone: Comment on above: Reference Range: 1.2 0 - 4.80 Complete Blood Count + Differential 3.26 {x10E9/L} See Below MG-Neurosurger y-Kelton Work Phone: Comment on above: Reference Range: 1.2 0 - 7.70 Complete Blood Count + Differential 4.8 % 0.0 - 6.0 MG-Neurosurger Naomi Work Phone: Complete Blood Count + Differential 0.4 % 0.0 - 0.9 MG-Neurosurger Naomi Work Phone: Comment on above: Immature Granulocyte Count (IG) includes promyelocytes, myelocytes and metamyelocytes but does not include bands. Percent differential counts (%) should be interpreted in the context of the absolute cell counts (cells/L). Complete Blood Count + Differential 0.0 {/100_WBC} 0.0-0.0 MG-Neurosurger Naomi Work Phone: Covid 19 Resultson 1 SARS-CoV-2 (COVID-19) RNA BEKAH+probe Ql (Unsp spec) NEGATIVE COVID-19 Test Coronaviruses are common world-wide and are the cause of many common colds. SARS-COV2 is a new coronavirus that began circulating worldwide in 2019 so we are calling it COVID-19. It has been estimated that four out of five patients with COVID-19 will recover at home without the need for medical attention. Symptoms of COVID-19 may include cough, fever, shortness of breath, loss of taste or smell and other flu-like symptoms including chills, sore muscles, sore throat, and headache. Severe illness is more common in older people and people with other health problems such as high blood pressure, obesity, and immune system problems. If the test is positive, you have COVID-19. You will be contacted by the ordering physicians office and instructed to remain on home isolation, in accordance with CDC guidelines. You may also be contacted by the [facility] to see if any of your close contacts may have been exposed to the virus and need to quarantine. If the test is negative, you likely do not have COVID-19 at this time, but you still may have a different illness that can spread to other people (like Influenza, or the Flu) and could still be at risk for getting COVID-19. We recommend that you stay away from other people to limit the spread of illness until your symptoms are improving and you are fever-free for 24 hours without the use of fever lowering medications such as acetaminophen or ibuprofen. No test is 100% accurate so if you are still concerned you may have COVID-19, talk to your doctor about the need to continue to stay away from others. Medicines Unless your provider told you not to use the following: Acetaminophen (Tylenol and others) is generally safe. Anti-inflammatory medications, such as Ibuprofen (Advil or Motrin) or Naproxen (Aleve) can also be used. Xboa-kzs-brigjij cough and cold medicines can be used according to the instructions on the package. Some uljx-wjh-pgbejar medicines also contain acetaminophen. Make sure you are not taking more than your recommended dose. For those not hospitalized, there is no specific treatment available for this illness. Antibiotics do not treat Coronaviruses. Follow-Up Follow up with your doctor by scheduling a virtual visit or consider follow-up at one of our urgent care fever clinics. If you are having difficulty breathing, or are very weak and having difficulty standing, this is a medical emergency. Call 911 or have someone take you to the nearest emergency room immediately. If possible, wear a facemask. Additional guidance from the CDC for patients who tested POSITIVE for COVID-19 How to isolate: Isolate yourself in a specific room at home and limit your contact with others. Use a separate bathroom from other members of the household, when possible. Leave home only to get essential medical care. Do not go to work, school or public areas. Avoid using public transportation, ride-sharing, or taxis. Restrict contact with pets and other animals. If you must care for your pet or be around animals while you are sick, wash your hands before and after your interaction and wear a facemask. Make sure that shared spaces in the home have good airflow, such as by an air conditioner or an opened window, weather permitting. Personal Hygiene Procedures: Wear a face mask when in the same room as other people or pets. If a face mask interferes with your breathing, others should wear a mask when sharing space with you. Frequent hand-washing: wash your hands with soap and water for at least 20 seconds. If soap and water are not available, use alcohol-based hand sewer pipe sorter. Avoid touching your eyes, nose, and mouth with unwashed hands. Household Hygiene Procedures: Avoid sharing personal household items such as dishes, glassware, cups, eating utensils, towels or bedding with other people or pets in your home. After use, these items should be washed with soap and hot water. Disinfect all high-touch surfaces every day with antibacterial cleaning solutions such as Lysol wipes, bleach, cleansers, etc. High-touch surfaces include tabletops, doorknobs, bathroom fixtures, toilets, phones, keyboards, tablets and bedside tables. Immediately clean any surfaces that may have blood, poop or body fluids on them, using antibacterial cleaning solutions such as Lysol wipes, bleach, cleansers, etc. If clothing or bedding come into contact with blood, poop or body fluids, they should be washed immediately. Follow the directions on the laundry detergent and clothing labels but hot water is recommended when possible. Stopping home isolation precautions: If possible, consult your doctor before stopping home isolation precautions. According to the CDC, you can discontinue home isolation precautions when you have met both of these criteria: Your fever and respiratory symptoms have been gone for 24 nikki (more content not included)... Normal [facility] Daily Progress Note-Neurosrk mason 02-08-2021 Daily Progress Note-Neurosurgery Service: Neurosurgery Subjective Data: SYED MICHELLE is a 70 year old Female who is Hospital Day # 2. Overnight Events: Patient had an uneventful night. Objective Data: Objective Information: T PRBPSpO2 [id number]% Date/Time02/08 4: 4: 4: 4: 4:00 Range(36.5C - 37C ) (59 - 78 ) (12 - 26 ) (118 - 194 )/ (58 - 94 ) (95% - 100% ) Highest temp of 37 C was recorded at 02/08 0:00 Pain reported at 02/08 3:54: 3 = Mild Physical Exam by System: Neurological: AAOx3 PERRL,EOMI, FS, TM No PD R / L UE 5 / LE 5 SILT x 4ext grossly Assessment and Plan: Code Status: Code StatusFull Code Advance Care Planning: Advance Care Planning: Patient didn't wish to or was unable to provide advance care plan Assessment: h/o HTN, CAD on asa, breast ca dx 2008 s/p mastectomy, s/p hysterectomy, HLD, CKD, 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 I personally obtained the johnson and critical portions of the history and physical exam or was physically present for johnson and critical portions performed by the resident/fellow. I reviewed the resident/fellows documentation and discussed the patient with the resident/fellow. I agree with the resident/fellows medical decision making as documented in the note. I personally evaluated the patient [id number] Electronic Signatures: Olegario Michel (Resident)) (Signed 08-Feb-2021 05:47) Authored: Service, Subjective Data, Objective Data, Assessment and Plan, Note Completion Analy Anthony) (Signed 08-Feb-2021 10:59) Authored: Note Completion Co-Signer: Service, Subjective Data, Objective Data, Assessment and Plan, Note Completion Last Updated: 08-Feb-2021 10:59 by Analy Anthony) [facility] Discharge Planning [id number] 02-08-2021 Discharge Planning Note2 Discharge Planning: Discharge Barriers (ex. Avoidable days, wait guardianship, pt refuse leave) None Anticipated Discharge [id number] Discharge Planning 02/08/2021 @ 10:57am Transitional Care Coordination Progress Note: Patient was discussed during interdisciplinary rounds. Team members present: medical team, MD, TARGET NETWORK ANALYST, SW, PCN, and TCC. Plan per medical team: Bilateral Hemiphrenic subdural Payer: Medicare A/B Status: inpatient Discharge disposition: Home. No surgery, pt/ot recs Potential barriers: None ADOD: 02/11/2021 pending medical pt/ot recs Assessment complete at the bedside Jesenia LOYA,RN 02/08/21 NURSES NOTE Patient discharged home today. Discharge instructions were given and reviewed she had no further questions at this time. Both ivs were taken out. Patient left with all belongings -Maya Roman sql etl developer: Discharge Planning Assessment [id number] Discharge Planning Assessment Completed byJesenia Murphy RN Primary Contact Name and NumberDru Santana [phone] Stated Reason for AdmissionIncrease b/p and Headache Arrived Fromhospital (1) Readmission Within the Last 30 Daysno previous admission in last 30 days PCPDr. Miller PCP Last Date Seen1 week ago [facility] Medication Adherence/Afford/Obtainye s InsuranceMedicare A/B Lives Withspouse(1) Living Arrangementshouse; Single family home 3 steps to enter no steps up to BR Recent Falls/ Injury/ Need Assist with AmbulationDenies Prior Level of FunctioningIndependent with all ADL s and IADL's Home Care Agency/Support ServicesNone DME Supplier Name/NumberNone O2 LPMN/A Home O2 SupplierNone Diabetic/Supplies NeededNone Hemodialysis ScheduleN/A Resource/Environmental Concernsnone(1) Social Determinants of Health IdentifiedNone Special ConsiderationsNone Transportation Home [facility]/Viola Gonsales Anticipated Transition [place](1) Services Anticipated at Transitionnone(1) Anticipated Changes Related to Illnessnone Equipment Needed After Dischargenone Anticipated Discharge Facility/Level of Care NeedsHome Discharge Planning CommentsPlans to return home with spouse Electronic Signatures: Jesenia Murphy (COOR) (Signed 08-Feb-2021 11:00) Authored: Discharge Planning, Assessment Maya Roman (RN) (Signed 08-Feb-2021 18:35) Authored: Discharge Planning Last Updated: 08-Feb-2021 18:35 by Maya Roman (RN) References: 1. Data Referenced From Patient Profile - Adult v2 08-Feb-2021 00:44 Normal [facility] Discharge [id number] Discharge Profile2 Discharge Orders: Anticipated Discharge Date: Anticipated Discharge [id number] Problem List: Admitting Dx: SDH (subdural hematoma): Catalog Name: Traumatic subdural hemorrhage with loss of consciousness of unspecified duration, initial encounter Prelim Disch Dx: SDH (subdural hematoma): Catalog Name: Traumatic subdural hemorrhage with loss of consciousness of unspecified duration, initial encounter Significant Events: CAD: Past Surgical History Cerebellar cavernoma: Past Medical History HLD: Past Medical History Breast Cancer 2009, s/p mastectomy: Past Medical History CKD: Past Medical History HTN: Past Medical History Hospital Providers: Provider RoleProvider Name Roddy Analy Faulkner Jordan Patricia DNAR: DNAR Status: none Activity: activity as tolerated. May shower. May not drive until follow-up visit. Weight-bearing Instructions: full weight bearing. Diet: Dietregular Neurosurgery: Patient Instructions: - Call 911 or go directly to the Emergency Room if you have ANY of the following symptoms: 1. Sudden weakness or numbness of the face, arm or leg, especially on one side of the body 2. Sudden difficulty speaking or understanding 3. Sudden trouble seeing in one or both eyes 4. Sudden trouble walking, dizziness, loss of balance or lack of coordination 5. Persistent one-sided headache 6. Loss of conscious or decreased conscious, fainting or seizures. Activity: Pain or discomfort is a guide to cut back on your activity. You may shower immediately after discharge. Medication Instructions: Remember when taking Acetaminophen to NOT exceed 1000 mg per dose or 4000 mg per day. Taking too much Acetaminophen at one time can damage your liver. Call MD if you have any questions about your medications. If you are taking a narcotic pain medication, check to make sure it does NOT contain acetaminophen before taking additional acetaminophen. To prevent constipation while taking narcotic pain medications, ensure that you drink plenty of water, eat fiber rich foods (a good source is fruit) and increase activity progressively. Call Physician If: Call your MD or seek immediate medical attention if you experience any of the following symptoms: 1. Fever of 101.5 (38.5 C) or greater 2. Seizures 3. Nausea with vomiting 4. Double, blurry or loss of vision 5. Confusion 6. Severe headaches that make you nauseous and vomit 7. Drainage or swelling around your incision 8. Trouble speaking 9. Loss of movement or weakness in your arms or legs 10. Trouble controlling your bowels or bladder 11. Fainting or passing out 12. Separation of the incision, or tearing of the incision line 13. Large fluid collection under or around the incision 14. Difficultly swallowing for Cervical patients 15. Swelling, pain, heat or redness in your legs and/or calves. Follow-Up - Neurosurgeon: Physician/Dept/ServiceNeu eliciaurgestu Anthony Scheduled Date/[id number] 11:15 [facility]; [address] [place], [place] Phone [phone] Comments4 week follow up visit; to have CT scan of Head prior to this appointment; Bring Insurance Card and Photo ID Follow-Up: Physician/Dept/ServiceCAT Scan of Head Scheduled Date/[id number] 09:30 [facility], Radiology Department, 1st floor Registration; [address], [place] Phone [phone] Commentsarrive 15 minutes early for registration; Bring Insurance Card and Photo ID. You have appointment with Dr Anthony at 11:15, after CT scan. Hospital Course (Home Care/Gold Form): Hospital Course: Hospital Course: include significant abnormal lab values 70 y/o Female with Hx of of CKD, HTN, CAD on asa, HLD, breast ca diagnosed in 2008 s/p mastectomy, s/p hysterectomy, 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 scan of the head showed the known cavernoma but was otherwise negative; she was admitted for hypertensive urgency at that time and then discharged. She returned to the ED 02/07 with persistent headache; MRI brain now showed bilateral subdural hematomas R>L. 02/08 CT angio Head and Neck with no stenosis and bilateral SDH's stable. PT/OT eval with no home needs and discharged to home with scheduled 4 week follow up with Dr Anthony with CT head. Provider FINAL REVIEW of Orders: Final Review: Final Review of Medication Reconciliation and Orders Completedby MAINTENANCE AND UTILITIES SUPERVISOR PETRA Muñoz at 08-Feb-2021 11:16:04 Electronic Signatures: Katie Stuart (MAINTENANCE AND UTILITIES SUPERVISOR-[employer] NETWORK ANALYST) (Signed 08-Feb-2021 11:16) Authored: Discharge Orders, Neurosurgery, Hospital Course (Home Care/Gold Form), Provider FINAL REVIEW of Orders, Gold Form - Data Security Coordinator Summary Last Updated: 08-Feb-2021 11:16 by Katie Stuart (MAINTENANCE AND UTILITIES SUPERVISOR-CN (more content not included)... Normal [facility] GLUCOSE-POCTon 02-08-2021 Glucose [Mass/Vol] 93 mg/dL Normal 74 - 99 MG-Arash rosurger Naomi Work Phone: Comment on above: Performed By: #### G KARI #### [facility] [id number] [address] Laboratory - Coagulationon 0 02-08-2021 aPTT Coag (PPP) [Time] 25 s 25 - 35 MG-Neurosurger Naomi Work Phone: Comment on above: THE APTT IS NO LONGE R USED FOR MONITORING UNFRACTIONATED HEPARIN THERAPY. FOR MONITORING HEPARIN THERAPY, USE THE HEPARIN ASSAY. INR Coag (PPP) [Relative time] 1.1 {INR} 0.9 - 1.1 MG-Neurosurger Naomi Work Phone: PT Coag (PPP) [Time] 12.8 s See Below MG-Neurosurger Naomi Work Phone: Comment on above: Reference Range: 10. 1 - 13.[address] ANGIO HEAD W/O-W INCLU DE POST PROCon 02-08-[address] ANGIO HEAD W/O-W INCLUDE POST PROC Patient Name: SYED MICHELLE STUDY: CT HEAD WO CONTRAST; CT ANGIO NECK; CT ANGIO HEAD W/O-W INCLUDE POST PROC; 02/08/2021 1:23 am INDICATION: eval stability of subdural hematomas, Lie Flat: Yes; spontaneous subdural hematoma, eval for vascular lesion, Lie Flat: Yes COMPARISON: Outside MRI brain, 02/07/2021 ACCESSION NUMBER(S): [id number]; [id number]; [id number] ORDERING CLINICIAN: CARMEL MILES TECHNIQUE: Axial CT images the head were obtained without intravenous contrast administration. In addition, thin cut CT images were generated over the upper thorax, neck, and head during the arterial passage of a full contrast bolus. The bolus was generated with a power injector and followed with immediate saline flush. These image data were subtracted and then used for 3-D reconstructions. Maximum intensity projections and shaded surface displays were generated in multiple planes. In addition images were transferred into a 3-D processing program and additional projections and displays were reviewed by the interpreting physician. FINDINGS: The CT angiogram through the upper thorax demonstrates atherosclerotic calcifications along the aortic arch and origin of the right brachiocephalic artery. No significant stenosis is noted along the origins of the right brachiocephalic artery, left common carotid artery, or left subclavian artery. No significant stenosis is noted along the origins of the vertebral arteries. The CT angiogram the neck demonstrates no significant stenosis along the common carotid arteries, carotid bifurcations, or cervical segments of the internal carotid arteries. No significant stenosis is noted along the cervical segments of the vertebral arteries. There is a left dominant vertebral artery. The CT angiogram of the head demonstrates no significant intracranial stenosis or intracranial aneurysm. No definite high-flow vascular malformation is noted. The CT images of the head demonstrate small low-density bifrontal subdural fluid collections measuring approximately 7 mm in thickness bilaterally which are similar in size when compared with the prior outside MRI dated 02/07/2021. There is similar mild mass effect upon the adjacent frontal lobes. The ventricular system is similar in size and configuration without evidence of hydrocephalus. There is again evidence of asymmetry in the size of lateral ventricles with the right lateral ventricle noted be smaller when compared with the left. There is similar mild bowing of the septum pellucidum to the right of midline. There is a focus of hyperdensity measuring approximately 14 mm x 8 mm in transaxial dimensions along the lateral right cerebellar hemisphere as seen on axial CT slice 8 of 32 without edema within the surrounding brain parenchyma. This corresponds to a focus of signal abnormality demonstrating a rim of dark signal on the T2 images with mixed bright and dark signal centrally without surrounding edema on the MRI dated 02/07/2021. The finding raises the possibility of an underlying cavernous angioma. The hyperdensity on the CT study may represent dystrophic calcification/mineralizat ion with the possibility of a component of hyperdense hemorrhage felt less likely but not entirely excluded given the lack of surrounding edema on the CT or MRI study. Correlation with any previous more remote outside MRI studies if available would be helpful to assess/confirm stability of this finding. If none are available, a follow-up MRI in 2 months with and without gadolinium would be recommended to confirm stability and exclude other underlying pathology. There are mild nonspecific white matter changes within the cerebral hemispheres bilaterally as well as vague hypodensity overlying the brainstem which while nonspecific, given the patient's age, likely represent sequelae of small vessel ischemic change. There is a air/fluid level within the left maxillary sinus as well as opacification and partial opacification of scattered ethmoid air cells. There is opacification of a few mastoid air cells bilaterally. IMPRESSION: The CT angiogram through the upper thorax demonstrates atherosclerotic calcifications along the aortic arch and origin of the right brachiocephalic artery. No significant stenosis is noted along the origins of the right brachiocephalic artery, left common carotid artery, or left subclavian artery. No significant stenosis is noted along the origins of the vertebral arteries. The CT angiogram the neck demonstrates no significant stenosis along the common carotid arteries, carotid bifurcations, or cervical segments of the internal carotid arteries. No significant stenosis is noted along the cervical segments of the vertebral arteries. There is a left dominant vertebral artery. The CT angiogram of the head demonstrates no significant intracranial nora (more content not included)... Normal [facility] NR CT ANGIO NECKon NR CT ANGIO NECK Patient Name: SYED MICHELLE STUDY: CT HEAD WO CONTRAST; CT ANGIO NECK; CT ANGIO HEAD W/O-W INCLUDE POST PROC; 02/08/2021 1:23 am INDICATION: eval stability of subdural hematomas, Lie Flat: Yes; spontaneous subdural hematoma, eval for vascular lesion, Lie Flat: Yes COMPARISON: Outside MRI brain, 02/07/2021 ACCESSION NUMBER(S): [id number]; [id number]; [id number] ORDERING CLINICIAN: CARMEL MILES TECHNIQUE: Axial CT images the head were obtained without intravenous contrast administration. In addition, thin cut CT images were generated over the upper thorax, neck, and head during the arterial passage of a full contrast bolus. The bolus was generated with a power injector and followed with immediate saline flush. These image data were subtracted and then used for 3-D reconstructions. Maximum intensity projections and shaded surface displays were generated in multiple planes. In addition images were transferred into a 3-D processing program and additional projections and displays were reviewed by the interpreting physician. FINDINGS: The CT angiogram through the upper thorax demonstrates atherosclerotic calcifications along the aortic arch and origin of the right brachiocephalic artery. No significant stenosis is noted along the origins of the right brachiocephalic artery, left common carotid artery, or left subclavian artery. No significant stenosis is noted along the origins of the vertebral arteries. The CT angiogram the neck demonstrates no significant stenosis along the common carotid arteries, carotid bifurcations, or cervical segments of the internal carotid arteries. No significant stenosis is noted along the cervical segments of the vertebral arteries. There is a left dominant vertebral artery. The CT angiogram of the head demonstrates no significant intracranial stenosis or intracranial aneurysm. No definite high-flow vascular malformation is noted. The CT images of the head demonstrate small low-density bifrontal subdural fluid collections measuring approximately 7 mm in thickness bilaterally which are similar in size when compared with the prior outside MRI dated 02/07/2021. There is similar mild mass effect upon the adjacent frontal lobes. The ventricular system is similar in size and configuration without evidence of hydrocephalus. There is again evidence of asymmetry in the size of lateral ventricles with the right lateral ventricle noted be smaller when compared with the left. There is similar mild bowing of the septum pellucidum to the right of midline. There is a focus of hyperdensity measuring approximately 14 mm x 8 mm in transaxial dimensions along the lateral right cerebellar hemisphere as seen on axial CT slice 8 of 32 without edema within the surrounding brain parenchyma. This corresponds to a focus of signal abnormality demonstrating a rim of dark signal on the T2 images with mixed bright and dark signal centrally without surrounding edema on the MRI dated 02/07/2021. The finding raises the possibility of an underlying cavernous angioma. The hyperdensity on the CT study may represent dystrophic calcification/mineralizat ion with the possibility of a component of hyperdense hemorrhage felt less likely but not entirely excluded given the lack of surrounding edema on the CT or MRI study. Correlation with any previous more remote outside MRI studies if available would be helpful to assess/confirm stability of this finding. If none are available, a follow-up MRI in 2 months with and without gadolinium would be recommended to confirm stability and exclude other underlying pathology. There are mild nonspecific white matter changes within the cerebral hemispheres bilaterally as well as vague hypodensity overlying the brainstem which while nonspecific, given the patient's age, likely represent sequelae of small vessel ischemic change. There is a air/fluid level within the left maxillary sinus as well as opacification and partial opacification of scattered ethmoid air cells. There is opacification of a few mastoid air cells bilaterally. IMPRESSION: The CT angiogram through the upper thorax demonstrates atherosclerotic calcifications along the aortic arch and origin of the right brachiocephalic artery. No significant stenosis is noted along the origins of the right brachiocephalic artery, left common carotid artery, or left subclavian artery. No significant stenosis is noted along the origins of the vertebral arteries. The CT angiogram the neck demonstrates no significant stenosis along the common carotid arteries, carotid bifurcations, or cervical segments of the internal carotid arteries. No significant stenosis is noted along the cervical segments of the vertebral arteries. There is a left dominant vertebral artery. The CT angiogram of the head demonstrates no significant intracranial nora (more content not included)... Normal [facility] NR CT HEAD WO CONTRASTon NR CT HEAD WO CONTRAST Patient Name: SYED MICHELLE STUDY: CT HEAD WO CONTRAST; CT ANGIO NECK; CT ANGIO HEAD W/O-W INCLUDE POST PROC; 02/08/2021 1:23 am INDICATION: eval stability of subdural hematomas, Lie Flat: Yes; spontaneous subdural hematoma, eval for vascular lesion, Lie Flat: Yes COMPARISON: Outside MRI brain, 02/07/2021 ACCESSION NUMBER(S): [id number]; [id number]; [id number] ORDERING CLINICIAN: CARMEL MILES TECHNIQUE: Axial CT images the head were obtained without intravenous contrast administration. In addition, thin cut CT images were generated over the upper thorax, neck, and head during the arterial passage of a full contrast bolus. The bolus was generated with a power injector and followed with immediate saline flush. These image data were subtracted and then used for 3-D reconstructions. Maximum intensity projections and shaded surface displays were generated in multiple planes. In addition images were transferred into a 3-D processing program and additional projections and displays were reviewed by the interpreting physician. FINDINGS: The CT angiogram through the upper thorax demonstrates atherosclerotic calcifications along the aortic arch and origin of the right brachiocephalic artery. No significant stenosis is noted along the origins of the right brachiocephalic artery, left common carotid artery, or left subclavian artery. No significant stenosis is noted along the origins of the vertebral arteries. The CT angiogram the neck demonstrates no significant stenosis along the common carotid arteries, carotid bifurcations, or cervical segments of the internal carotid arteries. No significant stenosis is noted along the cervical segments of the vertebral arteries. There is a left dominant vertebral artery. The CT angiogram of the head demonstrates no significant intracranial stenosis or intracranial aneurysm. No definite high-flow vascular malformation is noted. The CT images of the head demonstrate small low-density bifrontal subdural fluid collections measuring approximately 7 mm in thickness bilaterally which are similar in size when compared with the prior outside MRI dated 02/07/2021. There is similar mild mass effect upon the adjacent frontal lobes. The ventricular system is similar in size and configuration without evidence of hydrocephalus. There is again evidence of asymmetry in the size of lateral ventricles with the right lateral ventricle noted be smaller when compared with the left. There is similar mild bowing of the septum pellucidum to the right of midline. There is a focus of hyperdensity measuring approximately 14 mm x 8 mm in transaxial dimensions along the lateral right cerebellar hemisphere as seen on axial CT slice 8 of 32 without edema within the surrounding brain parenchyma. This corresponds to a focus of signal abnormality demonstrating a rim of dark signal on the T2 images with mixed bright and dark signal centrally without surrounding edema on the MRI dated 02/07/2021. The finding raises the possibility of an underlying cavernous angioma. The hyperdensity on the CT study may represent dystrophic calcification/mineralizat ion with the possibility of a component of hyperdense hemorrhage felt less likely but not entirely excluded given the lack of surrounding edema on the CT or MRI study. Correlation with any previous more remote outside MRI studies if available would be helpful to assess/confirm stability of this finding. If none are available, a follow-up MRI in 2 months with and without gadolinium would be recommended to confirm stability and exclude other underlying pathology. There are mild nonspecific white matter changes within the cerebral hemispheres bilaterally as well as vague hypodensity overlying the brainstem which while nonspecific, given the patient's age, likely represent sequelae of small vessel ischemic change. There is a air/fluid level within the left maxillary sinus as well as opacification and partial opacification of scattered ethmoid air cells. There is opacification of a few mastoid air cells bilaterally. IMPRESSION: The CT angiogram through the upper thorax demonstrates atherosclerotic calcifications along the aortic arch and origin of the right brachiocephalic artery. No significant stenosis is noted along the origins of the right brachiocephalic artery, left common carotid artery, or left subclavian artery. No significant stenosis is noted along the origins of the vertebral arteries. The CT angiogram the neck demonstrates no significant stenosis along the common carotid arteries, carotid bifurcations, or cervical segments of the internal carotid arteries. No significant stenosis is noted along the cervical segments of the vertebral arteries. There is a left dominant vertebral artery. The CT angiogram of the head demonstrates no significant intracranial nora (more content not included)... Normal [facility] Order Reconciliationon 02-08 Order Reconciliation Page 1 Discharge Reconciliation Document Reconciliation Type: Discharge requested on behalf of Katie Stuart (Advanced Practice Nurse) done by Katie Stuart ([facility]) Discharge - Reconciliation: 08-Feb-2021 11:29 by: Katie Stuart ([facility]) Discharge - Reset to Incomplete: 08-Feb-2021 11:33 by: Katie Stuart ([facility]) Discharge - Reconciliation: 08-Feb-2021 11:34 by: Katie Stuart ([facility]) Home Medications EnteredHOME MEDICATIONS AT DISCHARGE DateReconciliation Comment/ Additional Information Aspir 81 oral delayed release tablet 1 tab(s) orally once a day 07-Feb-2021 21:48 Discontinued; Discontinue from ORM atorvastatin 80 mg oral tablet 1 tab(s) orally once a day 07-Feb-2021 21:50 atorvastatin 80 mg oral tablet 1 tab(s) orally once a day 07-Feb-2021 21:50 atorvastatin 80 mg oral tablet is continued as atorvastatin 80 mg oral tablet carvedilol 25 mg oral tablet 1 tab(s) orally 2 times a day 07-Feb-2021 21:49 carvedilol 25 mg oral tablet 1 tab(s) orally 2 times a day 07-Feb-2021 21:49 carvedilol 25 mg oral tablet is continued as carvedilol 25 mg oral tablet Colace 100 mg oral capsule 2 cap(s) orally once a day (at bedtime) 07-Feb-2021 21:48 Colace 100 mg oral capsule 2 cap(s) orally once a day (at bedtime) 07-Feb-2021 21:48 Colace 100 mg oral capsule is continued as Colace 100 mg oral capsule FLUoxetine 20 mg oral capsule 1 cap(s) orally once a day 07-Feb-2021 21:50 FLUoxetine 20 mg oral capsule 1 cap(s) orally once a day 07-Feb-2021 21:50 FLUoxetine 20 mg oral capsule is continued as FLUoxetine 20 mg oral capsule losartan 50 mg oral tablet 1 tab(s) orally 2 times a day 07-Feb-2021 21:47 losartan 50 mg oral tablet 1 tab(s) orally 2 times a day 07-Feb-2021 21:47 losartan 50 mg oral tablet is continued as losartan 50 mg oral tablet magnesium oxide 400 mg (240 mg elemental magnesium) oral tablet 1 tab(s) orally once a day 07-Feb-2021 21:49 magnesium oxide 400 mg (240 mg elemental magnesium) oral tablet 1 tab(s) orally once a day 07-Feb-2021 21:49 magnesium oxide 400 mg (240 mg elemental magnesium) oral tablet is continued as magnesium oxide 400 mg (240 mg elemental magnesium) oral tablet Current OrdersDateHOME MEDICATIONS AT DISCHARGE DateReconciliation Comment/ Additional Information Acetaminophen Tablet (TYLENOL)DOSE = 650 mg Oral Every 6 Hours, PRN Pain - Mild (1-3) 07-Feb-2021 20:54 acetaminophen 325 mg oral tablet 2 tab(s) orally every 6 hours, As needed, Pain - Mild (1-3) 08-Feb-2021 11:23 Acetaminophen is continued as acetaminophen 325 mg oral tablet Atorvastatin Tablet (LIPITOR)DOSE = 80 mg Oral Daily 07-Feb-2021 23:34 atorvastatin 80 mg oral tablet 1 tab(s) orally once a day Atorvastatin reconciled with the existing atorvastatin 80 mg oral tablet Bisacodyl Rectal Suppository (DULCOLAX)DOSE = 10 mg Rectal Daily, PRN if no BM in the previous 36 hoursClinician Notes: once now and daily PRN 07-Feb-2021 20:54 Bisacodyl Rectal is not required Carvedilol Tablet (COREG)DOSE = 25 mg Oral 2 Times a Day 07-Feb-2021 23:34 carvedilol 25 mg oral tablet 1 tab(s) orally 2 times a day Carvedilol reconciled with the existing carvedilol 25 mg oral tablet Docusate Capsule (COLACE)DOSE = 100 mg Oral 2 Times a Day 07-Feb-2021 20:54 Colace 100 mg oral capsule 2 cap(s) orally once a day (at bedtime) Docusate reconciled with the existing Colace 100 mg oral capsule Fleet Adult (Sodium Phosphate) Rectal EnemaDOSE = 1 enema Rectal Daily, PRN if no BM in the previous 24 hoursClinician Notes: now and daily PRN 07-Feb-2021 20:54 Fleet Adult (Sodium Phosphate) Rectal is not required FLUoxetine Capsule (PROZAC)DOSE = 20 mg Oral Daily 07-Feb-2021 23:34 FLUoxetine 20 mg oral capsule 1 cap(s) orally once a day FLUoxetine reconciled with the existing FLUoxetine 20 mg oral capsule hydrALAZINE (APRESOLINE) Injectable DOSE = 10 mg IntraVenous Push Every 20 Minutes, PRN to maintain SBP less than 160Clinician Notes: notify MD if given 3 times in an hour 07-Feb-2021 20:54 hydrALAZINE (APRESOLINE) Injectable is not required HYDROmorphone Injectable (DILAUDID)DOSE = 0.2 mg IntraVenous Push Every 3 Hours, PRN breakthrough pain 07-Feb-2021 20:54 HYDROmorphone Injectable is not required Losartan Tablet (COZAAR)DOSE = 50 mg Oral Daily 07-Feb-2021 23:34 losartan 50 mg oral tablet 1 tab(s) orally 2 times a day Losartan reconciled with the existing losartan 50 mg oral tablet Magnesium Oxide Tablet (Mag-Ox)DOSE = 400 mg Oral Daily 07-Feb-2021 23:34 magnesium oxide 400 mg (240 mg elemental magnesium) oral tablet 1 tab(s) orally once a day Magnesium Oxide reconciled with the existing magnesium oxide 400 mg (240 mg elemental magnesium) oral tablet Ondansetron Injectable (ZOFRAN)DOSE = 4 mg IntraVenous Push Every 6 Hours, PRN Nausea 07-Feb-2021 20:54 Ondansetron Injectable is not required oxyCODONE Immediate Release Tablet (OXYIR, ROXICODONE)DOSE = 10 mg Oral Every 4 Hours, PRN Pain - Severe (more content not included)... Normal [facility] Order Reconciliation Page 1 Admission Reconciliation Document Reconciliation Type: Admission requested on behalf of Carmel Miles (Resident) done by Carmel Miles ( (Resident)) Admission - Reconciliation: 07-Feb-2021 23:34 by: Carmel Miles (Resident)) Home MedicationsEnteredLast Dose TakenReconciled with current Order Reconciliation Comment/ Additional Information Aspir 81 oral delayed release tablet 1 tab(s) orally once a [id number]-Feb-2021 AM Reviewed and Held atorvastatin 80 mg oral tablet 1 tab(s) orally once a [id number]-Feb-2021 PM Atorvastatin Tablet (LIPITOR)DOSE = 80 mg Oral Daily atorvastatin 80 mg oral tablet continued as the inpatient order Atorvastatin carvedilol 25 mg oral tablet 1 tab(s) orally 2 times a [id number]-Feb-2021 AM Carvedilol Tablet (COREG)DOSE = 25 mg Oral 2 Times a Day carvedilol 25 mg oral tablet continued as the inpatient order Carvedilol Colace 100 mg oral capsule 2 cap(s) orally once a day (at bedtime)07-Feb-2021 PM Docusate Capsule (COLACE)DOSE = 100 mg Oral 2 Times a Day Colace 100 mg oral capsule reconciled with the existing inpatient order Docusate FLUoxetine 20 mg oral capsule 1 cap(s) orally once a [id number]-Feb-2021 AM FLUoxetine Capsule (PROZAC)DOSE = 20 mg Oral DailyFLUoxetine 20 mg oral capsule continued as the inpatient order FLUoxetine losartan 50 mg oral tablet 1 tab(s) orally 2 times a [id number]-Feb-2021 AM Losartan Tablet (COZAAR)DOSE = 50 mg Oral Dailylosartan 50 mg oral tablet continued as the inpatient order Losartan magnesium oxide 400 mg (240 mg elemental magnesium) oral tablet 1 tab(s) orally once a [id number] PM Magnesium Oxide Tablet (Mag-Ox)DOSE = 400 mg Oral Dailymagnesium oxide 400 mg (240 mg elemental magnesium) oral tablet continued as the inpatient order Magnesium Oxide Additional Current Orders Acetaminophen Tablet (TYLENOL)DOSE = 650 mg Oral Every 6 Hours, PRN Pain - Mild (1-3) Bisacodyl Rectal Suppository (DULCOLAX)DOSE = 10 mg Rectal Daily, PRN if no BM in the previous 36 hoursClinician Notes: once now and daily PRN Fleet Adult (Sodium Phosphate) Rectal EnemaDOSE = 1 enema Rectal Daily, PRN if no BM in the previous 24 hoursClinician Notes: now and daily PRN hydrALAZINE (APRESOLINE) Injectable DOSE = 10 mg IntraVenous Push Every 20 Minutes, PRN to maintain SBP less than 160Clinician Notes: notify MD if given 3 times in an hour HYDROmorphone Injectable (DILAUDID)DOSE = 0.2 mg IntraVenous Push Every 3 Hours, PRN breakthrough pain Ondansetron Injectable (ZOFRAN)DOSE = 4 mg IntraVenous Push Every 6 Hours, PRN Nausea oxyCODONE Immediate Release Tablet (OXYIR, ROXICODONE)DOSE = 10 mg Oral Every 4 Hours, PRN Pain - Severe (7-10) oxyCODONE Immediate Release Tablet (OXYIR, ROXICODONE)DOSE = 5 mg Oral Every 4 Hours, PRN Pain - Mod (4-6) Polyethylene Glycol Powder for Reconstitution (MIRALAX)DOSE = 17 gram(s) Oral Daily, PRN Constipation Sennosides Tablet (SENOKOT)DOSE = 2 tablet(s) Oral Daily Normal [facility] Patient Profile - Adult v2on 02-08-2021 Patient Profile - Adult v2 Profile: Initial Info: How to be AddressedPeggi Spoken Language PreferredEnglish Stated Reason for AdmissionBrain bleed Patient Belongingsremains with patient Arrived Fromhospital Medications Brought to Hospitalyes Medication Dispositionbedside Are you currently using the Personal Electronic Health Record or [employer]psicofxp[facility] Family/Rep Notified of Admissionno Notify PCPnotify PCP Informed of Patient Visiting [facility] General Health: Weight in kg60.9 kilogram(s) Weight in bhv938.2 pound(s) Weight Methodactual (measured) Scale Typebed Height in cm167.6 centimeter(s) Height in feet5 feet Height in inches6 inch(es) Height Methodstated BMI (kg/m2)21.68 square meter RSP Based Care: How would you like to participate in your careMake own decision What is the number one concern for you during this hospitalizationThe outcome of everything What is the most important thing we can do to support you during this hospitalizationNothing Is there anything we need to know to best care for youNo Substance: Current or Former Substance Use never: Cigarette/Tobacco, e-Cigarette/Vaping, Street Drugs YES: Alcohol Health Mgmt: Symptoms/Conditions Managed at Homecardiovascular; cancer Cancer Symptoms/Conditionsbreast Cancer Managementmanaged Cardiovascular Symptoms/Conditionshypert ension Cardiovascular Managementmanaged Relationship/Environ: Resource/Environmental Concernsnone Primary Source of Support/Comfortchild(martin) ; spouse Lives Withspouse Living Arrangementshouse Services Anticipated at Transitionnone Anticipated Transition Tohome Significant IndicatorsComplete Information Review: Allergies, Home Meds and Significant Events have been Reviewed and Verified with Patient/Familyyes ALLERGY, INTOLERANCE, ADVERSE EVENT: Allergies: sulfa drugs: Drug Category, Unknown, Active Electronic Signatures: Maya Sanz (RN) (Signed 08-Feb-2021 00:47) Authored: Initial Info, General Health, RSP Based Care, Substance, Health Mgmt, Relationship/Environ, Additional Information Last Updated: 08-Feb-2021 00:47 by Maya Sanz (RN) Normal [facility] RENAL FUNCTION PANELon 02-08 Albumin [Mass/Vol] 3.9 g/dL Normal 3.4 - 5.0 [facility] Comment on above: Performed By: #### R ENAL #### [facility] [address] [place] [address] Anion gap [Moles/Vol] 14 mmol/L Normal 10 - 20 [facility] Comment on above: Performed By: #### R ENAL #### [facility] [address] [place] [address] Calcium [Mass/Vol] 9.2 mg/dL Normal 8.6 - 10.6 [facility] Comment on above: Performed By: #### R ENAL #### [facility] [address] [place] [address] Chloride [Moles/Vol] 108 mmol/L High 98 - 107 [facility] Comment on above: Performed By: #### R ENAL #### [facility] [address] [place] [address] Creatinine [Mass/Vol] 0.92 mg/dL Normal 0.50 - 1.05 [facility] Comment on above: Performed By: #### R ENAL #### [facility] [address] [place] [address] GFR- AM. >60 Normal >60 [facility] Comment on above: Result Comment: CALC ULATIONS OF ESTIMATED GFR ARE PERFORMED USING THE MDRD STUDY EQUATION FOR THE IDMS-TRACEABLE CREATININE METHODS. CLIN CHEM 2007;53:766-72 Performed By: #### R ENAL #### [facility] [address] [place] [address] GFR-NON AM. >60 Normal >60 [facility] Comment on above: Performed By: #### R ENAL #### [facility] [address] [place] [address] Glucose [Mass/Vol] 86 mg/dL Normal 74 - 99 [facility] Comment on above: Performed By: #### R ENAL #### [facility] [address] [place] [address] HCO3 (Bld) [Moles/Vol] 23 mmol/L Normal 21 - 32 [facility] Comment on above: Performed By: #### R ENAL #### [facility] [address] [place] [address] Phosphate [Mass/Vol] 4.0 mg/dL Normal 2.5 - 4.9 [facility] Comment on above: Result Comment: The performance characteristics of phosphorus testing in heparinized plasma have been validated by the individual laboratory site where testing is performed. Testing on heparinized plasma is not approved by the FDA; however, such approval is not necessary. Performed By: #### R ENAL #### [facility] [address] [place] [address] Potassium [Moles/Vol] 4.2 mmol/L Normal 3.5 - 5.3 [facility] Comment on above: Performed By: #### R ENAL #### [facility] [address] [place] [address] Sodium [Moles/Vol] 141 mmol/L Normal 136 - 145 [facility] Comment on above: Performed By: #### R ENAL #### [facility] [address] [place] [address] Urea nitrogen [Mass/Vol] 14 mg/dL Normal 6 - 23 [facility] Comment on above: Performed By: #### R ENAL #### [facility] [address] [place] [address] Renal Function Panelon 02-08 Albumin BCP dye [Mass/Vol] 3.9 g/dL 3.4 - 5.0 [facility] Work Phone: Anion gap [Moles/Vol] 14 mmol/L 10 - 20 [facility] Work Phone: Calcium [Mass/Vol] 9.2 mg/dL 8.6 - 10.6 [facility]-Arash rosurger [facility] Work Phone: Chloride [Moles/Vol] 108 mmol/L above high threshold 98 - 107 [facility] Work Phone: CO2 [Moles/Vol] 23 mmol/L 21 - 32 [facility]s ur[facility] Work Phone: Creatinine [Mass/Vol] 0.92 mg/dL See Below [facility] Work Phone: Comment on above: Reference Range: 0.5 0 - 1.05 Glucose [Mass/Vol] 86 mg/dL 74 - 99 [facility]Arash rosurger [facility] Work Phone: Phosphate [Mass/Vol] 4.0 mg/dL 2.5 - 4.9 [facility] Work Phone: Comment on above: The performance wilson acteristics of phosphorus testing in heparinized plasma have been validated by the individual laboratory site where testing is performed. Testing on heparinized plasma is not approved by the FDA; however, such approval is not necessary. Potassium [Moles/Vol] 4.2 mmol/L 3.5 - 5.3 [facility] Work Phone: Sodium [Moles/Vol] 141 mmol/L 136 - 145 [facility]Arash rosurger [facility] Work Phone: Urea nitrogen [Mass/Vol] 14 mg/dL 6 - 23 [facility] Work Phone: Renal Function Panel >60 >60 [facility] Naomi Work Phone: Comment on above: CALCULATIONS OF TASHIA MATED GFR ARE PERFORMED USING THE MDRD STUDY EQUATION FOR THE IDMS-TRACEABLE CREATININE METHODS. CLIN CHEM 2007;53:766-72 URINALYSISon 02-08-2021 Appearance (U) CLEAR Normal CLEAR [facility] Comment on above: Performed By: #### U A ####[id number] [place] [address] Bilirubin Ql (U) Negative Normal NEGATIVE [facility] Comment on above: Performed By: #### U A ####[id number] [place] [address] Color (U) COLORLESS Normal STRAW,YELLO W [facility] Comment on above: Performed By: #### U A ####[id number] [place] [address] Glucose Ql (U) Negative Normal NEGATIVE [facility] Comment on above: Performed By: #### U A ####[id number] [place] [address] Hemoglobin Ql (U) Negative Normal NEGATIVE [facility] Comment on above: Performed By: #### U A ####[id number] [place] [address] Ketones Ql (U) Negative Normal NEGATIVE [facility] Comment on above: Performed By: #### U A ####[id number] [place] [address] Leukocyte esterase Test strip Ql (U) Negative Normal NEGATIVE [facility] Comment on above: Performed By: #### U A ####[id number] [place] [address] Nitrite Ql (U) Negative Normal NEGATIVE [facility] Comment on above: Performed By: #### U A ####[id number] [place] [address] pH (U) 8.0 [pH] Normal 5.0 - 8.0 [facility] Comment on above: Performed By: #### U A ####[id number] [place] [address] Protein Ql (U) Negative Normal NEGATIVE [facility] Comment on above: Performed By: #### U A ####[id number] [place] [address] Specific gravity (U) [Rel density] 1.006 Normal 1.005 - 1.035 [facility] Comment on above: Performed By: #### U A ####[id number] [place] [address] Urobilinogen (U) [Mass/Vol] mg/dL Normal 0.0 - 1.9 [facility] Comment on above: Performed By: #### U A ####[id number] [place] [address] Coronavirus 2019 RNA by PCR, Screening Asymptomticon 02-07-2021 Coronavirus 2019 RNA by PCR, Screening Asymptomtic Not detected Normal See Below [facility] Naomi Work Phone: Comment on above: SOURCE: Nasal, Nasop haryngealReference Range: Not Detected.This assay is designed to detect the ORF1ab and/or S genes of SARS-CoV-2 via nucleic acid amplification. A Not Detected result does not preclude 2019-nCoV infection since the adequacy of sample collection and/or low viral burden may result in presence of viral nucleic acids below the clinical sensitivity of this test method. Fact sheet for providers: www.fda.gov/media/984141/downloadFact sheet for patients: www.fda.gov/media/157136/downloadThis test has received FDA Emergency Use Authorization (EUA) and has been verified by [facility] ([facility]). This test is only authorized for the duration of time that circumstances exist to justify the authorization of the emergency use of in vitro diagnostic tests for the detection of SARS-CoV-2 virus and/or diagnosis of COVID-19 infection under section 564(b)(1) of the Act, 21 U.S.C. 360bbb-3(b)(1), unless the authorization is terminated or revoked sooner. [facility] is certified under CLIA-88 as qualified to perform high complexity testing. Testing is performed in the [facility] laboratories located at [address] [place] [address]. No Panel Informationon 02-07 [email or web address] ?RetrieveTestByDateTime?P nlhigtRD=[id number]&Date=2 06-15-2021&Time=20%3a17%3a 49%3a00&TestType=ECG&Site =1&OutputType=PDF&Ext=PDF [facility] Work Phone: Sinus bradycardia MG-Neur osurger y-[facility] Work Phone: Abnormal [facility] Work Phone: [phone] [facility] Work Phone: 464 1 [facility] y-[facility] Work Phone: 181 1 [facility]Neurosurger y-[facility] Work Phone: 123 1 [facility]Neurosurger y-[facility] Work Phone: 220 1 [facility]urosurger y-[facility] Work Phone: 9 1 [facility]Neurosurger y-[facility] Work Phone: 26 1 [facility]Neurosurger y-[facility] Work Phone: -1 1 [facility]Neurosurger y-[facility] Work Phone: 61 1 [facility]Neurosurger y-[facility] Work Phone: 470 1 [facility]Neurosurger y-[facility] Work Phone: 488 1 [facility]Neurosurger y-[facility] Work Phone: 84 1 [facility] y[facility] Work Phone: 194 1 [facility]Neurosurger y-[facility] Work Phone: 56 1 [facility] y[facility] Work Phone: Urinalysison 02-07-2021 Color (U) COLORLESS See Below [facility] Work Phone: Comment on above: Reference Range: STR AW,YELLOW Glucose Ql (U) Negative NEGATIVE [facility]su r[facility] Work Phone: Ketones Ql (U) Negative NEGATIVE [facility] Work Phone: Leukocyte esterase Test strip Ql (U) Negative NEGATIVE [facility] Work Phone: pH (U) 8.0 [pH] 5.0 - 8.0 [facility] Work Phone: Protein (U) [Mass/Vol] Negative NEGATIVE [facility] Work Phone: RBC (U) [#/Vol] Negative NEGATIVE [facility]Ne[facility]s urger [facility] Work Phone: Specific gravity (U) [Rel density] 1.006 1 See Below [facility] Work Phone: Comment on above: Reference Range: 1.0 05 - 1.035 Urinalysis Negative NEGATIVE [facility] Work Phone: Urinalysis <2.0 0.0 - 1.9 [facility] Work Phone: Urinalysis CLEAR CLEAR [facility] Work Phone: APTTon 01-28-2019 aPTT Coag time (Bld) 26.1 s Normal 25.0-35.[address] [facility] Comment on above: Order Comment: No: D o not add to previous draw Result Comment: ALL RESULTS MUST BE INTERPRETED WITH RESPECT TO BLOOD DRAWING ARTIFACT OR DILUTION ERROR OF ANTICOAGULANT AT THE TIME OF SAMPLING. THE APTT SHOULD NOT BE USED TO MONITOR UNFRACTIONATED HEPARIN THERAPY, THIS LABORATORY NO LONGER HAS AN ESTABLISHED THERAPEUTIC RANGE BASED ON THE APTT. IT IS RECOMMENDED THAT THE UFH - HEPARIN ASSAY (ANTI-XA ACTIVITY) BE USED FOR THIS PURPOSE. Performed By: #### 5 6101, [id number] #### [facility] [address] [place] [address], [facility] BASIC METABOLIC PANELon - Calcium mass conc 9.0 mg/dL Normal 8.6-10.3 [facility] Comment on above: Order Comment: No: D o not add to previous draw Performed By: #### 3 5200, 78669, 85448 #### [facility] [address] [place] [id number], [facility] Chloride molar conc 107 mmol/L Normal 98-107 [facility] Comment on above: Order Comment: No: D o not add to previous draw Performed By: #### 3 5200, 19322, 02748 #### [facility] [address] [place] [address], [facility] CO2 molar conc 22 mmol/L Normal 21-31 [facility] Comment on above: Order Comment: No: D o not add to previous draw Performed By: #### 3 5200, 20959, 48028 #### [facility] [address] [place] [address], [facility] Creatinine mass conc 1.33 mg/dL High 0.60-1.[address] [facility] Comment on above: Order Comment: No: D o not add to previous draw Performed By: #### 3 5200, 77987, 90024 #### [facility] [address] [place] [address], [facility] GFR/1.73 sq M predicted among blacks MDRD vol rate/area (S/P/Bld) 48 ml/min/1.73sq m Abnormal >60 [facility] Comment on above: Order Comment: No: D o not add to previous draw Performed By: #### 3 5200, 74726, 97579 #### [facility] [address] [place] [place] [address], [facility] GFR/1.73 sq M predicted among non-blacks MDRD vol rate/area (S/P/Bld) 40 ml/min/1.73sq m Abnormal >60 [facility] Comment on above: Order Comment: No: D o not add to previous draw Performed By: #### 3 5200, 99806, 20024 #### [facility] [address] [place] [place] [address], [facility] Glucose mass conc 98 mg/dL Normal 70-100 [facility] Comment on above: Order Comment: No: D o not add to previous draw Performed By: #### 3 0, 31993, 26596 #### [facility] [address] [place] [place] [address], [place] Potassium molar conc 3.1 mmol/L Low 3.5-5.[address] [facility] Comment on above: Order Comment: No: D o not add to previous draw Performed By: #### 3 0, 87272, 78710 #### [facility] [address] [place] [address], [place] Sodium molar conc 140 mmol/L Normal 136-145 [facility] Comment on above: Order Comment: No: D o not add to previous draw Performed By: #### 3 0, 60311, 04300 #### [facility] [address] [place] [place] [address], [place] Urea nitrogen mass conc 21 mg/dL Normal 7-[address] [facility] Comment on above: Order Comment: No: D o not add to previous draw Performed By: #### 3 5200, 83239, 44522 #### [facility] [address] [place] [place] [address], [place] CBC W/DIFFon 04-19-2019 ABS BASOPHILS 0.1 10*3/uL Normal 0.0-0.2 [facility] Comment on above: Performed By: #### 5 0103 #### [facility] [address] ABS IMM GRANS 0.0 10*3/uL Normal 0.0-0.2 [facility] Comment on above: Performed By: #### 5 0103 #### [facility] [address] ABS NEUTROPHILS 5.2 10*3/uL Normal 1.6-7.6 [facility] Comment on above: Performed By: #### 5 0103 #### [facility] [address] Basophils #/vol (Bld) 0.6 % Normal 0.0-1.[address] [facility] Comment on above: Performed By: #### 5 0103 #### [facility] [address] Eosinophils #/vol (Bld) 0.2 10*3/uL Normal 0.0-0.[address] [facility] Comment on above: Performed By: #### 5 0103 #### [facility] [address] [facility]. [address] Eosinophils/100 WBC (Bld) 2.0 % Normal 0.0-6.[address] [facility] Comment on above: Performed By: #### 5 0103 #### [facility] [address] Erythrocyte distribution width Ratio (RBC) 12.8 % Normal 11.5-15.[address] [facility] Comment on above: Performed By: #### 5 0103 #### [facility] [address] Hematocrit Volume Fraction (Bld) 33.7 % Low 36.0-45.[address] [facility] Comment on above: Performed By: #### 5 0103 #### [facility] [address] [facility] [place] [address], [facility] Hemoglobin mass conc (Bld) 11.6 g/dL Low 12.0-15.[address] [facility] Comment on above: Performed By: #### 5 0103 #### [facility] [address] [facility] [place] [place] [address], [facility] IMMATURE GRANS 0.1 % Normal 0.0-1.0 [facility] Comment on above: Performed By: #### 5 0103 #### [facility] [address] [place] [address], [facility] Lymphocytes #/vol (Bld) 2.5 10*3/uL Normal 1.2-4.[address] [facility] Comment on above: Performed By: #### 5 0103 #### [facility] [address] [facility] [place] [place] [address], [facility] Lymphocytes/100 WBC (Bld) 28.9 % Normal 20.0-45.[address] [facility] Comment on above: Performed By: #### 5 0103 #### [facility] [address] [place] [address], [facility] MCH Entitic mass (RBC) 30.0 pg Normal 27.0-33.[address] [facility] Comment on above: Performed By: #### 5 0103 #### [facility] [address] [place] [address], [facility] MCHC mass conc (RBC) 34.4 g/dL Normal 32.0-35.[address] [facility] Comment on above: Performed By: #### 5 0103 #### [facility] [address] [place] [address], [facility] MCV Entitic volume (RBC) 87.1 fL Normal 82.0-98.0 [facility] Comment on above: Performed By: #### 5 102 #### [facility] [address] Monocytes #/vol (Bld) 0.6 10*3/uL Normal 0.1-1.[address] [facility] Comment on above: Performed By: #### 5 102 #### [facility] [address] MONOS 7.2 % Normal 5.0-12.[address] [facility] Comment on above: Performed By: #### 5 102 #### [facility] [address] Neutrophils/100 WBC (Bld) 61.2 % Normal 40.0-72.[address] [facility] Comment on above: Performed By: #### 102 #### [facility] [address] Nucleated RBC/100 WBC Ratio (Bld) 0 % Normal 0-[address] [facility] Comment on above: Performed By: #### 5 102 #### [facility] [address] PLAT CNT 193 10*3/uL Normal 150-[address] [facility] Comment on above: Performed By: #### 5 102 #### [facility] [address] RBC #/vol (Bld) 3.87 10*6/uL Normal 3.80-5.00 The [facility] Comment on above: Performed By: #### 5 102 #### [facility] [address] WBC #/vol (Bld) 8.49 10*3/uL Normal 4.00-10.60 The [facility] Comment on above: Performed By: #### 5 0103 #### [facility] [address] [facility]. [address] MAGNESIUM BLOODon 01-28-2019 Magnesium mass conc 1.9 mg/dL Normal 1.9-2.7 The [facility] Comment on above: Order Comment: No: D o not add to previous draw Performed By: #### 3 5200, [id number], [id number] #### [facility] [address] [facility]. [address] PROTHROMBIN TIMEon 9 INR Coag RelTime (PPP) 1.11 {INR} Normal 0.91-1.[address] [facility] Comment on above: Order Comment: No: D o not add to previous draw Result Comment: ACCC P RECOMMENDED INR FOR WARFARIN THERAPY ------ ------- CONDITION INR PROPHYLAXIS OF VENOUS THROMBOSIS 2-3 (HIGH-RISK SURGERY) TREATMENT OF VENOUS THROMBOSIS 2-3 TREATMENT OF PULMONARY EMBOLISM 2-3 PREVENTION OF SYSTEMIC EMBOLISM: 2-3 ACUTE MYOCARDIAL INFARCTION TISSUE HEART VALVES VALVULAR HEART DISEASE ATRIAL FIBRILLATION RECURRENT SYSTEMIC EMBOLISM MECHANICAL HEART VALVE 2.5-3.5 FROM: ORAL ANTICOAGULANTS. MECHANISM OF ACTION, CLINICAL EFFECTIVENESS, AND OPTIMAL THERAPEUTIC RANGE. CHEST 1995;108:231S-246S. Performed By: #### 5 6101, [id number] #### [facility] [address] [place] Prothrombin time (PT) Coag time (PPP) 14.3 s Normal 12.3-14.[address] [facility] Comment on above: Order Comment: No: D o not add to previous draw Result Comment: ALL RESULTS MUST BE INTERPRETED WITH RESPECT TO BLOOD DRAWING ARTIFACT OR DILUTION ERROR OF ANTICOAGULANT AT THE TIME OF SAMPLING. Performed By: #### 5 6101, [id number] #### [facility] [address] [place] [address], [facility] TROPONIN-Ion 01-28-2019 Troponin I.cardiac mass conc 0.01 ng/mL Normal 0.00-0.[address] [facility] Comment on above: Order Comment: No: D o not add to previous draw Result Comment: REFE RENCE RANGES: 0.00 - 0.04 ng/ml NORMAL 0.05 - 0.50 ng/ml INDETERMINATE > 0.50 ng/ml CONSISTENT WITH AN M.I. Performed By: #### 3 5200 #### [facility] [address] [facility] [place] [address], [facility] Troponin I.cardiac mass conc 0.01 ng/mL Normal 0.00-0.[address] [facility] Comment on above: Order Comment: No: D o not add to previous draw Result Comment: REFE RENCE RANGES: 0.00 - 0.04 ng/ml NORMAL 0.05 - 0.50 ng/ml INDETERMINATE > 0.50 ng/ml CONSISTENT WITH AN M.I. Performed By: #### 3 5200 #### [facility] [address] [place] [address], [facility] Troponin I.cardiac mass conc 0.01 ng/mL Normal 0.00-0.[address] [facility] Comment on above: Order Comment: No: D o not add to previous draw Result Comment: REFE RENCE RANGES: 0.00 - 0.04 ng/ml NORMAL 0.05 - 0.50 ng/ml INDETERMINATE > 0.50 ng/ml CONSISTENT WITH AN M.I. Performed By: #### 3 5200, [id number], [id number] #### [facility] [address] [place] [address], [facility] Cardiovascular Lab Reporton 10-20-2018 Cardiovascular Lab Report [facility] Patient Name: [facility] MR #: [id number] Physician: Chad Barillas, Department of M.D. Medicine Service Date: 10/19/2018 Division of Birthdate: 1950 Cardiology Room #: [facility] Cardiovascular [facility] [address] [address] [place] [address] Cardiovascular Laboratory Report FINAL IMPRESSIONS: 1. 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 2. Mild disease of the left circumflex and right coronary arteries with superimposed spasm in the proximal right coronary artery. 3. Normal global left ventricular systolic function by noninvasive imaging. 4. Severe systemic hypertension. RECOMMENDATIONS/PLAN: 1. Close clinical observation for development of any groin complications. 2. Aggressive cardiovascular risk factor modification. 3. Optimization of medical management; will add Imdur 30 mg a day for suspected coronary spasm. 4. Follow up with me in the [facility] in 3-4 weeks. 5. Follow up with Dr. Miller as scheduled. PROCEDURES: Limited femoral angiography, bilateral selective coronary angiography, intracoronary nitroglycerin administration, deployment of a 6-Panamanian VIP Angio-Seal device. METHODS: After risks, benefits, and alternatives were explained, written informed consent was obtained. The patient was prepped and draped in usual sterile fashion over the right groin. Using 1% lidocaine solution, local infiltration anesthesia was achieved. Using a modified Seldinger technique, access to the right common femoral artery was obtained. A 6-Panamanian 11 cm sheath was inserted without difficulty. Baseline femoral angiography was performed. Bilateral selective coronary angiography was then performed using JL4 and JR4 catheters. Dampening of pressures was noted. Subsequently, the right coronary was engaged using a 6-Panamanian guide catheter and intracoronary nitroglycerin was administered. Repeat angiography showed resolution of the coronary spasm and normalization of the pressure tracings. At this point, it was elected to conclude the procedure. A 6-Panamanian VIP Angio-Seal device was deployed per protocol, achieving optimal hemostasis. Overall, the patient tolerated the procedure well. There were no complications. She was to be transferred to the holding area in stable condition. FINDINGS: Hemodynamics: AO 147/95. LEFT VENTRICULOGRAPHY: This was not performed. Ejection fraction is normal by noninvasive imaging. CORONARY ARTERIES: Left main coronary artery. This arises from the left coronary cusp. It bifurcates into the left anterior descending and left circumflex coronary arteries and is free of significant stenosis. Left anterior descending coronary artery. This shows plaque disease at the ostium and a 40-50% midvessel stenosis. There was plaque and luminal irregularities throughout the remainder of the vessel. Left circumflex coronary artery. This shows a 20-30% midvessel stenosis and continues as a small caliber AV groove branch. It gives rise to a very small high originating first obtuse marginal and a large branching second obtuse marginal. No significant stenoses seen. Right coronary artery. This is a dominant vessel, giving rise to the posterior descending and posterolateral branches. There is a 20-30% proximal stenosis with superimposed coronary spasm that resolved after intracoronary administration of nitroglycerin. The distal circulation shows small caliber with no discrete stenosis. Limited femoral angiography. This shows mild plaque and anatomy suitable for a closure device. INDICATIONS: Chest discomfort, abnormal stress test. Electronically Signed by: Chad Barillas M.D. 10/22/2018 02:44 P Chad Barillas M.D. Date Dict: 10/19/2018/10:21 Selena Barillas M.D. Date Trans: 10/20/2018 01:31 Parker [id number] cc: Lon Miller M.D. [address] [place] [address] [address] [facility] BASIC METABOLIC PANELon Calcium mass conc 9.2 mg/dL Normal 8.6-10.3 The [facility] Comment on above: Performed By: #### 0 0071 #### [facility] [address] [place] [address], [facility] Chloride molar conc 104 mmol/L Normal 98-107 [facility] Comment on above: Performed By: #### 0 0071 #### [facility] [address] [place] [address], [facility] CO2 molar conc 24 mmol/L Normal 21-31 [facility] Comment on above: Performed By: #### 0 0071 #### [facility] [address] [place] [address], [facility] Creatinine mass conc 1.13 mg/dL Normal 0.60-1.[address] [facility] Comment on above: Performed By: #### 0 0071 #### [facility] [address] [place] [address], [facility] GFR/1.73 sq M predicted among blacks MDRD vol rate/area (S/P/Bld) 59 ml/min/1.73sq m Abnormal >60 The [facility] Comment on above: Performed By: #### 0 0071 #### [facility] [address] [place] [address], [facility] GFR/1.73 sq M predicted among non-blacks MDRD vol rate/area (S/P/Bld) 48 ml/min/1.73sq m Abnormal >60 The [facility] Comment on above: Performed By: #### 0 0071 #### [facility] [address] [place] [address], [facility] Glucose mass conc 84 mg/dL Normal 70-100 [facility] Comment on above: Performed By: #### 0 0071 #### [facility] [address] [place] [address], [facility] Potassium molar conc 3.1 mmol/L Low 3.5-5.[address] [facility] Comment on above: Performed By: #### 0 0071 #### [facility] [address] [place] [address], [facility] Sodium molar conc 141 mmol/L Normal 136-145 [facility] Comment on above: Performed By: #### 0 0071 #### [facility] [address] [place] [address], [facility] Urea nitrogen mass conc 29 mg/dL High 7-[address] [facility] Comment on above: Performed By: #### 0 0071 #### [facility] [address] Vital Signs Date Time Vital Sign Value Performing Clinician [facility] 09-08-2023 10:36-0500 Blood Pressure Location [facility] 09-08-2023 10:36-0500 Body temperature 97.16 [degF] [facility] 09-08-2023 10:36-0500 Diastolic blood pressure 78 mm[Hg] [facility] 09-08-2023 10:36-0500 Heart rate 78 /min [facility] 09-08-2023 10:36-0500 Systolic blood pressure 118 mm[Hg] [facility] 08-18-2023 10:45-0500 Body height 172.72 cm Lon Miller Other [facility] Other 08-18-2023 10:45-0500 Body mass index (BMI) [Ratio] 18.58 kg/m2 Lon Miller Other [facility] Other 08-18-2023 10:45-0500 Body temperature 97.3 [degF] Lon Miller Other [facility] Other 08-18-2023 10:45-0500 Body weight 55.43 kg Lon Miller Other [facility] Other 08-18-2023 10:45-0500 Diastolic blood pressure 72 mm[Hg] Lon Miller Other [facility] Other 08-18-2023 10:45-0500 SaO2% (BldA) [Mass fraction] 99 % Lon Miller Other [facility] Other 08-18-2023 10:45-0500 Systolic blood pressure 110 mm[Hg] Lon Miller Other [facility] Other 08-11-2023 11:00-0400 Body height 172.72 cm Vladimir [employer] Other [facility] Other 08-11-2023 11:00-0400 Body mass index (BMI) [Ratio] 18.7 kg/m2 Azmalick Skyliness Other [facility] Other 08-11-2023 11:00-0400 Body temperature 97.4 [degF] Aziz Skyliness Other [facility] Other 08-11-2023 11:00-0400 Body weight 55.79 kg Aziz Skyliness Other [facility] Other 08-11-2023 11:00-0400 Diastolic blood pressure 70 mm[Hg] Aziz Skyliness Other [facility] Other 08-11-2023 11:00-0400 Respiratory rate 18 /min Aziz Skyliness Other [facility] Other 08-11-2023 11:00-0400 SaO2% (BldA) [Mass fraction] 99 % Aziz Skyliness Other [facility] Other 10-31-2023 11:00-0400 Systolic blood pressure 120 mm[Hg] Vladimir Clifton Other [facility] Other 07-20-2023 13:25-0400 Body height 172.72 cm Mallorie Guardado Other [facility] Other 07-20-2023 13:25-0400 Body mass index (BMI) [Ratio] 18.7 kg/m2 Mallorie Guardado Other [facility] Other 07-20-2023 13:25-0400 Body temperature 98.3 [degF] Mallorie Guardado Other [facility] Other 07-20-2023 13:25-0400 Body weight 55.79 kg Mallorie Guardado Other [facility] Other 07-20-2023 13:25-0400 Diastolic blood pressure 82 mm[Hg] Mallorie Guardado Other [facility] Other 07-20-2023 13:25-0400 Respiratory rate 17 /min Mallorie Guardado Other [facility] Other 07-20-2023 13:25-0400 SaO2% (BldA) [Mass fraction] 97 % Mallorie Guardado Other [facility] Other 07-20-2023 13:25-0400 Systolic blood pressure 110 mm[Hg] Mallorie Guardado Other [facility] Other 07-14-2023 11:15-0400 Body height 172.72 cm Geneva Coats Other [facility] Other 07-14-2023 11:15-0400 Body mass index (BMI) [Ratio] 18.85 kg/m2 Geneva Coats Other [facility] Other 07-14-2023 11:15-0400 Body temperature 97.3 [degF] Geneva Coats Other [facility] Other 07-14-2023 11:15-0400 Body weight 56.25 kg Geneva Coats Other [facility] Other 07-14-2023 11:15-0400 Diastolic blood pressure 66 mm[Hg] Geneva Coats Other [facility] Other 07-14-2023 11:15-0400 SaO2% (BldA) [Mass fraction] 97 % Geneva Coats Other [facility] Other 07-14-2023 11:15-0400 Systolic blood pressure 108 mm[Hg] Geneva Coats Other [facility] Other 07-03-2023 11:30-0400 Body height 172.72 cm Mallorie Guardado Other [facility] Other 07-03-2023 11:30-0400 Body mass index (BMI) [Ratio] 18.64 kg/m2 Mallorie Guardado Other [facility] Other 07-03-2023 11:30-0400 Body temperature 98.2 [degF] Mallorie Guardado Other [facility] Other 07-03-2023 11:30-0400 Body weight 55.61 kg Mallorie Guardado Other [facility] Other 07-03-2023 11:30-0400 Diastolic blood pressure 58 mm[Hg] Mallorie Debby Other [facility] Other 07-03-2023 11:30-0400 Respiratory rate 18 /min Mallorie Easleyley Other [facility] Other 07-03-2023 11:30-0400 SaO2% (BldA) [Mass fraction] 97 % Mallorie Easleyley Other [facility] Other 07-03-2023 11:30-0400 Systolic blood pressure 90 mm[Hg] Mallorie Guardado Other [facility] Other 06-23-2023 12:45-0400 Body height 172.72 cm Teresita Ortega Other [facility] Other 06-23-2023 12:45-0400 Body mass index (BMI) [Ratio] 18.64 kg/m2 Teresita Ortega Other [facility] Other 06-23-2023 12:45-0400 Body temperature 97.7 [degF] Teresita Ortega Other [facility] Other 06-23-2023 12:45-0400 Body weight 55.61 kg Teresita Ortega Other [facility] Other 06-23-2023 12:45-0400 Diastolic blood pressure 61 mm[Hg] Teresita Garrettler Other [facility] Other 06-23-2023 12:45-0400 Respiratory rate 18 /min Teresita Ortega Other [facility] Other 06-23-2023 12:45-0400 SaO2% (BldA) [Mass fraction] 99 % Teresita Ortega Other [facility] Other 06-23-2023 12:45-0400 Systolic blood pressure 106 mm[Hg] Teresita Ortega Other [facility] Other 06-12-2023 12:25-0400 Body height 172.72 cm Lidia Agnes Other [facility] Other 06-12-2023 12:25-0400 Body mass index (BMI) [Ratio] 18.7 kg/m2 Lidia Agnes Other [facility] Other 06-12-2023 12:25-0400 Body temperature 98.1 [degF] Lidia Agnes Other [facility] Other 06-12-2023 12:25-0400 Body weight 55.79 kg Lidia Agnes Other [facility] Other 06-12-2023 12:25-0400 Diastolic blood pressure 82 mm[Hg] Lidia Agnes Other [facility] Other 06-12-2023 12:25-0400 Respiratory rate 18 /min Lidia Agnes Other [facility] Other 06-12-2023 12:25-0400 SaO2% (BldA) [Mass fraction] 99 % Ildia Agnes Other [facility] Other 06-12-2023 12:25-0400 Systolic blood pressure 135 mm[Hg] Lidia Agnes Other [facility] Other 06-02-2023 11:45-0400 Body height 172.72 cm Mukesh Bangrer Other [facility] Other 06-02-2023 11:45-0400 Body mass index (BMI) [Ratio] 18.85 kg/m2 Mukesh Jonesehrer Other [facility] Other 06-02-2023 11:45-0400 Body temperature 97.6 [degF] Mukesh Jonesehrer Other [facility] Other 06-02-2023 11:45-0400 Body weight 56.25 kg Mukesh Bangrer Other [facility] Other 06-02-2023 11:45-0400 Diastolic blood pressure 66 mm[Hg] Mukesh Buehrer Other [facility] Other 06-02-2023 11:45-0400 SaO2% (BldA) [Mass fraction] 97 % Mukesh Buehrer Other [facility] Other 06-02-2023 11:45-0400 Systolic blood pressure 110 mm[Hg] Mukesh Buehrer Other [facility] Other 05-26-2023 11:15-0400 Body height 172.72 cm Lon Miller Other [facility] Other 05-26-2023 11:15-0400 Body mass index (BMI) [Ratio] 18.85 kg/m2 Lon Miller Other [facility] Other 05-26-2023 11:15-0400 Body weight 56.25 kg Lon Paul Other [facility] Other 05-26-2023 11:15-0400 Diastolic blood pressure 71 mm[Hg] Lon Paul Other [facility] Other 05-26-2023 11:15-0400 Systolic blood pressure 118 mm[Hg] Lon Paul Other [facility] Other 04-29-2023 14:20-0400 Body height 172.72 cm Mallorie Guardado Other [facility] Other 04-29-2023 14:20-0400 Body mass index (BMI) [Ratio] 18.85 kg/m2 Mallorie Guardado Other [facility] Other 04-29-2023 14:20-0400 Body temperature 98.3 [degF] Mallorie Guardado Other [facility] Other 04-29-2023 14:20-0400 Body weight 56.25 kg Mallorie Guardado Other [facility] Other 04-29-2023 14:20-0400 Diastolic blood pressure 77 mm[Hg] Mallorie Guardado Other [facility] Other 04-29-2023 14:20-0400 Respiratory rate 18 /min Mallorie Guardado Other [facility] Other 04-29-2023 14:20-0400 SaO2% (BldA) [Mass fraction] 98 % Mallorie Guardado Other [facility] Other 07-19-2023 14:20-0400 Systolic blood pressure 127 mm[Hg] Mallorie Guardado Other [facility] Other 04-17-2023 09:00-0400 Body height 172.72 cm Lon Miller Other [facility] Other 04-17-2023 09:00-0400 Body mass index (BMI) [Ratio] 18.91 kg/m2 Lon Miller Other [facility] Other 04-17-2023 09:00-0400 Body weight 56.43 kg Lon Miller Other [facility] Other 04-17-2023 09:00-0400 Diastolic blood pressure 81 mm[Hg] Lon Miller Other [facility] Other 04-17-2023 09:00-0400 Systolic blood pressure 134 mm[Hg] Lon Miller Other [facility] Other 03-17-2023 13:30-0400 Body height 172.72 cm Teresita Ortega Other [facility] Other 03-17-2023 13:30-0400 Body mass index (BMI) [Ratio] 19.1 kg/m2 Teresita Ortega Other [facility] Other 03-17-2023 13:30-0400 Body temperature 98.2 [degF] Teresita Ortega Other [facility] Other 03-17-2023 13:30-0400 Body weight 56.97 kg Teresita Ortega Other [facility] Other 03-17-2023 13:30-0400 Respiratory rate 18 /min Teresita Ortega Other [facility] Other 03-17-2023 13:30-0400 SaO2% (BldA) [Mass fraction] 97 % Teresita Ortega Other [facility] Other 02-04-2023 10:40-0400 Body height 172.72 cm Azmalick Bakhous Other [facility] Other 02-04-2023 10:40-0400 Body mass index (BMI) [Ratio] 19.1 kg/m2 Aziz Bakhous Other [facility] Other 02-04-2023 10:40-0400 Body temperature 97.3 [degF] Azmalick Connerhous Other [facility] Other 02-04-2023 10:40-0400 Body weight 56.97 kg Aziz Bakhous Other [facility] Other 02-04-2023 10:40-0400 Diastolic blood pressure 88 mm[Hg] Aziz Bakhous Other [facility] Other 02-04-2023 10:40-0400 Respiratory rate 18 /min Aziz Bakhous Other [facility] Other 02-04-2023 10:40-0400 SaO2% (BldA) [Mass fraction] 99 % Aziz Bakhous Other [facility] Other 02-04-2023 10:40-0400 Systolic blood pressure 149 mm[Hg] Aziz Bakhous Other [facility] Other 12-18-2022 14:15-0500 Body height 172.72 cm Lon Miller Other [facility] Other 12-18-2022 14:15-0500 Body mass index (BMI) [Ratio] 19 kg/m2 Lon Miller Other [facility] Other 12-18-2022 14:15-0500 Body weight 56.7 kg Lon Miller Other [facility] Other 12-18-2022 14:15-0500 Diastolic blood pressure 66 mm[Hg] Lon Miller Other [facility] Other 12-18-2022 14:15-0500 SaO2% (BldA) [Mass fraction] 99 % Lon Miller Other [facility] Other 12-18-2022 14:15-0500 Systolic blood pressure 120 mm[Hg] Lon Miller Other [facility] Other 10-19-2022 12:00-0500 Body height 172.72 cm Lidia Alarcon Other [facility] Other 10-19-2022 12:00-0500 Body mass index (BMI) [Ratio] 19.16 kg/m2 Lidia Alarcon Other [facility] Other 10-19-2022 12:00-0500 Body temperature 97.3 [degF] Lidia Alarcon Other [facility] Other 10-19-2022 12:00-0500 Body weight 57.15 kg Lidia Alarcon Other [facility] Other 10-19-2022 12:00-0500 Diastolic blood pressure 79 mm[Hg] Lidia Clementsmond Other [facility] Other 10-19-2022 12:00-0500 Respiratory rate 16 /min Lidia Clementsmond Other [facility] Other 10-19-2022 12:00-0500 SaO2% (BldA) [Mass fraction] 100 % Lidia Clementsmond Other [facility] Other 10-19-2022 12:00-0500 Systolic blood pressure 123 mm[Hg] Lidia Clementsmond Other [facility] Other 10-08-2022 13:15-0500 Body height 172.72 cm Teresita Ortega Other [facility] Other 10-08-2022 13:15-0500 Body mass index (BMI) [Ratio] 19.16 kg/m2 Etresita Ortega Other [facility] Other 10-08-2022 13:15-0500 Body temperature 97.5 [degF] Teresita Ortega Other [facility] Other 10-08-2022 13:15-0500 Body weight 57.15 kg Teresita Ortega Other [facility] Other 10-08-2022 13:15-0500 Respiratory rate 18 /min Teresita Ortega Other [facility] Other 10-08-2022 13:15-0500 SaO2% (BldA) [Mass fraction] 99 % Teresita Ortega Other [facility] Other 10-06-2022 18:30-0500 Body height 172.72 cm Nieves Jessy Other [facility] Other 10-06-2022 18:30-0500 Body mass index (BMI) [Ratio] 19.28 kg/m2 Nieves Jiménez Other [facility] Other 10-06-2022 18:30-0500 Body temperature 97.7 [degF] Nieves Jiménez Other [facility] Other 10-06-2022 18:30-0500 Body weight 57.52 kg Nieves Jiménez Other [facility] Other 10-06-2022 18:30-0500 Diastolic blood pressure 89 mm[Hg] Nieves Jiménez Other [facility] Other 10-06-2022 18:30-0500 Respiratory rate 18 /min Nieves Jiménez Other [facility] Other 10-06-2022 18:30-0500 SaO2% (BldA) [Mass fraction] 100 % Nieves Jiménez Other [facility] Other 10-06-2022 18:30-0500 Systolic blood pressure 160 mm[Hg] Nieves Jiménez Other [facility] Other 08-07-2022 11:20-0400 Body height 172.72 cm Harjeetmalick Replisedarcie Other [facility] Other 08-07-2022 11:20-0400 Body mass index (BMI) [Ratio] 18.73 kg/m2 Vladimir Replisedarcie Other [facility] Other 08-07-2022 11:20-0400 Body temperature 96.3 [degF] Vladimir Clifton Other [facility] Other 08-07-2022 11:20-0400 Body weight 55.88 kg Vladimir Herrs Other [facility] Other 08-07-2022 11:20-0400 Diastolic blood pressure 84 mm[Hg] Vladimir Herrs Other [facility] Other 08-07-2022 11:20-0400 Respiratory rate 18 /min Vladimir Herrs Other [facility] Other 08-07-2022 11:20-0400 SaO2% (BldA) [Mass fraction] 99 % Vladimir Clifton Other [facility] Other 08-07-2022 11:20-0400 Systolic blood pressure 139 mm[Hg] Vladimir Herrs Other [facility] Other 06-02-2022 12:15-0400 Body height 172.72 cm Teresita Garrettler Other [facility] Other 06-02-2022 12:15-0400 Body mass index (BMI) [Ratio] 19 kg/m2 Teresita Ortega Other [facility] Other 06-02-2022 12:15-0400 Body temperature 98 [degF] Teresita Garrettler Other [facility] Other 06-02-2022 12:15-0400 Body weight 56.7 kg Teresita Ortega Other [facility] Other 06-02-2022 12:15-0400 Respiratory rate 18 /min Teresita Ortega Other [facility] Other 06-02-2022 12:15-0400 SaO2% (BldA) [Mass fraction] 97 % Teresita Ortega Other [facility] Other 04-11-2022 16:15-0400 Body height 172.72 cm Lidia Alarcon Other [facility] Other 04-11-2022 16:15-0400 Body mass index (BMI) [Ratio] 20.98 kg/m2 Lidia Alarcon Other [facility] Other 04-11-2022 16:15-0400 Body temperature 98.7 [degF] Lidia Alarcon Other [facility] Other 04-11-2022 16:15-0400 Body weight 62.6 kg Lidia Alarcon Other [facility] Other 04-11-2022 16:15-0400 SaO2% (BldA) [Mass fraction] 97 % Lidia Alarcon Other [facility] Other 12-24-2021 12:44-0400 Body height 172.7 cm Ashanti Foote MD Work Phone: [facility] 12-24-2021 12:44-0400 Body weight 58.97 kg Ashanti Foote MD Work Phone: [facility] 12-24-2021 12:44-0400 Diastolic blood pressure 88 mm[Hg] Ashanti Foote MD Work Phone: [facility] 12-24-2021 12:44-0400 Heart rate 65 /min Ashanti Foote MD Work Phone: [facility] 12-24-2021 12:44-0400 Systolic blood pressure 151 mm[Hg] Ashanti Foote MD Work Phone: [facility] 12-10-2021 14:40-0500 Body height 172.72 cm Azmalick Herrs Other [facility] Other 12-10-2021 14:40-0500 Body mass index (BMI) [Ratio] 19.79 kg/m2 Azmalick Herrs Other [facility] Other 12-10-2021 14:40-0500 Body weight 59.06 kg Azmalick Connerhous Other [facility] Other 12-10-2021 14:40-0500 Diastolic blood pressure 76 mm[Hg] Aziz Nemesios Other [facility] Other 12-10-2021 14:40-0500 Respiratory rate 16 /min Azmalick Herrs Other [facility] Other 12-10-2021 14:40-0500 SaO2% (BldA) [Mass fraction] 99 % Azmalick Herrs Other [facility] Other 12-10-2021 14:40-0500 Systolic blood pressure 130 mm[Hg] Aziz Bakhous Other [facility] Other 10-01-2021 12:20-0500 Body height 172.72 cm Loi Buenrostro Other [facility] Other 10-01-2021 12:20-0500 Body mass index (BMI) [Ratio] 19.86 kg/m2 Loi Buenrostro Other [facility] Other 10-01-2021 12:20-0500 Body weight 59.24 kg Loi Buenrostro Other [facility] Other 10-01-2021 12:20-0500 Diastolic blood pressure 90 mm[Hg] Loi Buenrostro Other [facility] Other 10-01-2021 12:20-0500 Respiratory rate 18 /min Loi Buenrostro Other [facility] Other 10-01-2021 12:20-0500 SaO2% (BldA) [Mass fraction] 99 % Loi Buenrostro Other [facility] Other 10-01-2021 12:20-0500 Systolic blood pressure 164 mm[Hg] Loi Buenrostro Other [facility] Other 04-02-2021 11:13-0400 Body height 172.72 cm Lon Miller Work Phone: VO-Curnszgnklvb-Glxh a Work Phone: 04-02-2021 11:13-0400 Body mass index (BMI) [Ratio] 20.53 kg/m2 Lon Miller Work Phone: PA-Nrszqvzcjhqo-Lrqe a Work Phone: 04-02-2021 11:13-0400 Body surface area Derived from formula 1.73 m2 Lon Miller Work Phone: CH-Mwrutzoygvbb-Mqgo a Work Phone: 04-02-2021 11:13-0400 Body weight 61.24 kg Lon Miller Work Phone: PM-Grjbmxfbqnjb-Lfbw a Work Phone: 04-02-2021 11:13-0400 Respiratory rate 14 /min Lon Miller Work Phone: KF-Cwutzxqqdyfo-Ipcw a Work Phone: 04-02-2021 11:13-0400 0 1 Lon Miller Work Phone: OI-Xvjbldharsyv-Tydh a Work Phone: Comment on above: [facility] 03-05-2021 11:31-0400 Body height 172.72 cm Referring Provider Unknown CG-Blryqkvfrwpd-Cbbv a Work Phone: 03-05-2021 11:31-0400 Body mass index (BMI) [Ratio] 20.53 kg/m2 Referring Provider Unknown MT-Uavevgnvbtbj-Esmu a Work Phone: 03-05-2021 11:31-0400 Body surface area Derived from formula 1.73 m2 Referring Provider Unknown TC-Qbjncmgqaqfx-Wcko a Work Phone: 03-05-2021 11:31-0400 Body weight 61.24 kg Referring Provider Unknown WC-Frgtdwwnrcjv-Qaxh a Work Phone: 03-05-2021 11:31-0400 Diastolic blood pressure 90 mm[Hg] Referring Provider Unknown RW-Myocewtyltqg-Lrvp a Work Phone: 03-05-2021 11:31-0400 Respiratory rate 14 /min Referring Provider Unknown FB-Llyuuntuweun-Tnbf a Work Phone: 03-05-2021 11:31-0400 Systolic blood pressure 183 mm[Hg] Referring Provider Unknown HF-Pymqvuhtsaqn-Mcrs a Work Phone: 03-05-2021 11:31-0400 0 1 Referring Provider Unknown KQ-Qhwgnujjorwi-Grwo a Work Phone: Comment on above: [facility] 02-08-2021 18:00-0400 Body temperature 97.7 [degF] Pcp Unknown [facility] 02-08-2021 18:00-0400 Diastolic blood pressure 78 mm[Hg] Pcp Unknown [facility] 02-08-2021 18:00-0400 Heart rate 61 /min Pcp Unknown [facility] 02-08-2021 18:00-0400 Respiratory rate 15 /min Pcp Unknown [facility] 02-08-2021 18:00-0400 SaO2% (BldA) [Mass fraction] 99 % Pcp Unknown [facility] 02-08-2021 18:00-0400 Systolic blood pressure 143 mm[Hg] Pcp Unknown [facility] 02-08-2021 02:44-0400 Body height 167.6 cm Pcp Unknown [facility] 02-08-2021 02:44-0400 Body weight 60.9 kg Pcp Unknown [facility] Encounters Encounter Date Encounter Type Care Provider Facility Start: 11-09-2023 End: 11-09-2023 ambulatory EHAB [facility] Start: 10-08-2023 ambulatory Flores Marie Facility:[facility] Start: 09-10-2023 Nursing evaluation o f patient and report Lon Miller [facility] Start: 09-10-2023 End: 09-10-2023 ambulatory MD Lon Miller Work Phone: [facility] Other Start: 09-10-2023 End: 09-10-2023 Departed Referred MD Lon Miller Work Phone: [facility] [place] Work Phone: Start: 09-08-2023 End: 09-09-2023 ambulatory Flores Marie Facility:[facility] Start: 09-08-2023 End: 09-08-2023 Patient encounter procedure Flores Marie [facility] Start: 08-27-2023 End: 08-27-2023 ambulatory Vladimir Clifton Other [facility] Other Start: 08-27-2023 Telephone encounter Vladimir Dalilanikkis [facility] Start: 08-18-2023 End: 08-18-2023 ambulatory Lon Miller Other [facility] Other Start: 08-18-2023 Office outpatient vi sit 15 minutes Lon Miller [facility] Start: 08-11-2023 End: 08-11-2023 ambulatory Azmalick Dalilanikkis Other [facility] Other Start: 08-11-2023 Office outpatient vi sit 25 minutes Aziz Nemesios [facility] [place] Start: 07-20-2023 End: 07-20-2023 ambulatory Mallorie Guardado Other [facility] Other Start: 07-20-2023 Office outpatient vi sit 15 minutes Mallorie Guardado [facility] [place] Start: 07-20-2023 Telephone encounter Lon Miller [facility] [place] Start: 07-14-2023 End: 07-14-2023 ambulatory Geneva Burgoswilla Other [facility] Other Start: 07-14-2023 Patient encounter procedure Geneva Coats [facility] Vascular Surgery Start: 07-06-2023 End: 07-06-2023 ambulatory Lon Miller Facility:[facility] Start: 07-06-2023 End: 07-06-2023 ambulatory MD Lon Miller Work Phone: [facility] Work Phone: Start: 07-06-2023 End: 07-06-2023 Patient encounter procedure MD Lon Miller Work Phone: [facility] [place] Work Phone: Start: 07-04-2023 End: 07-04-2023 ambulatory Lon Miller Other [facility] Other Start: 07-04-2023 Telephone encounter Lon Miller [facility] Start: 07-03-2023 End: 07-03-2023 ambulatory Mallorie Guardado Other [facility] Other Start: 07-03-2023 Office outpatient vi sit 15 minutes Mallorie Guardado [facility] Start: 06-23-2023 End: 06-23-2023 ambulatory Teresita Jordan Other [facility] Other Start: 06-23-2023 Office outpatient vi sit 25 minutes Teresita Ortega [facility] [place] Start: 06-12-2023 End: 06-12-2023 ambulatory Lidia Agnes Other [facility] Other Start: 06-12-2023 Office outpatient vi sit 15 minutes Lidia Agnes [facility] [place] Start: 06-02-2023 End: 06-02-2023 ambulatory Mukesh Fam Other [facility] Other Start: 06-02-2023 Office outpatient ne w 45 minutes Mukesh Fam [facility] Start: 06-02-2023 Telephone encounter Mukesh Fam [facility] Start: 05-27-2023 End: 05-27-2023 ambulatory Lon Miller Other [facility] Other Start: 05-27-2023 Telephone encounter Lon Miller [facility] Start: 05-26-2023 End: 05-26-2023 ambulatory Lon Miller Other [facility] Other Start: 05-26-2023 Office outpatient vi sit 15 minutes Lon Miller [facility] Start: 04-29-2023 End: 04-29-2023 ambulatory Mallorie Guardado Other [facility] Other Start: 04-29-2023 Office outpatient vi sit 15 minutes Mallorie Guardado [facility] [place] Start: 04-17-2023 End: 04-17-2023 ambulatory Lon Miller Other [facility] Other Start: 04-17-2023 Office outpatient vi sit [address] [facility] Start: 04-17-[address] Lon Miller [facility] Start: 03-17-2023 End: 03-17-2023 ambulatory Teresita Ortega Other [facility] Other Start: 03-17-2023 Office outpatient vi sit 25 minutes Teresita Ortega [facility] [place] Start: 02-04-2023 End: 02-04-2023 ambulatory Vladimir Clifton Other [facility] Other Start: 02-04-2023 Office outpatient vi sit 25 minutes Vladimir Clifton [facility] Start: 01-26-2023 End: 01-27-[address] LON MILLER Facility:[facility] Start: 01-19-2023 End: 01-19-2023 ambulatory Lon Miller Other [facility] Other Start: 01-19-[address] Miller [facility] Start: 12-23-2022 End: 12-24-[address] LON MILLER [facility] Other Start: 12-23-20[address] Lon Miller [facility] Start: 12-18-2022 End: 12-18-2022 ambulatory Lon Miller Other [facility] Other Start: 12-18-2022 Office outpatient vi sit [address] [facility] Start: 12-05-2022 End: 12-05-2022 ambulatory IVETTE AIKEN [facility] Start: 12-01-2022 End: 12-02-[address] LON MILLER Facility:[facility] Start: 10-27-2022 End: 10-28-[address] LON MILLER Facility:[facility] Start: 10-20-2022 End: 10-21-[address] LON MILLER Facility:[facility] Start: 10-19-2022 End: 10-19-2022 ambulatory Lidia Alarcon Other [facility] Other Start: 10-19-2022 Office outpatient vi sit 25 minutes Lidia Agnes [facility] [place] Start: 10-08-2022 End: 10-08-2022 ambulatory Teresita Ortega Other [facility] Other Start: 10-08-2022 Office outpatient vi sit 25 minutes Teresita Ortega [facility] [place] Start: 10-06-2022 End: 10-06-2022 ambulatory Nieves Jiménez Other [facility] Other Start: 10-06-2022 Office outpatient vi sit 15 minutes Nieveskourtney Jiménez [facility] [place] Start: 08-28-2022 End: 08-28-2022 ambulatory SINTIA VO Facility:[facility] Start: 08-07-2022 End: 08-07-2022 ambulatory Aziz Bakhous Other [facility] Other Start: 08-07-2022 Office outpatient vi sit 15 minutes Aziz Bakhous [facility] Start: 06-02-2022 End: 06-02-2022 ambulatory Teresita Ortega Other [facility] Other Start: 06-02-2022 Office outpatient vi sit 25 minutes Teresita Ortega [facility] [address] [facility] Start: 05-12-2022 End: 05-13-[address] DOCTOR WASHINGTON Facility:[facility] Start: 04-11-2022 End: 04-11-2022 ambulatory Lidia Alarcon Other [facility] Other Start: 04-11-2022 Office outpatient vi sit 15 minutes Lidia Agnes [facility] Start: 03-16-2022 ambulatory Ashanti Brooks Work Phone: Endocrinology Comment on above: Bp Start: 03-08-2022 End: 03-08-2022 ambulatory MEDINA ADELA . Facility: Start: 02-12-2022 ambulatory Ashanti Brooks Work Phone: Endocrinology Comment on above: results Start: 02-12-2022 E-mail encounter fro m caregiver Ashanti Foote MD Work Phone: [facility] Start: 02-10-2022 ambulatory Ashanti Brooks Work Phone: Endocrinology Comment on above: Recent tests Start: 01-10-2022 End: 01-10-2022 ambulatory Rene Irwin Other [facility] Other Start: 01-10-2022 Telephone encounter Rene Irwin [facility] Start: 01-09-2022 ambulatory Ashanti Brooks Work Phone: Endocrinology Comment on above: More tests Start: 01-01-2022 ambulatory Ashanti Brooks Work Phone: Endocrinology Comment on above: results from test Start: 01-01-2022 Telephone encounter Ashanti alejandra MD Work Phone: Endocrinology Comment on above: Received Outside [facility] Records (Referral Documents ) Start: 12-24-2021 End: 12-24-2021 Patient encounter procedure Ashanti Foote MD Work Phone: Endocrinology Comment on above: Aldosteronism (HCC) (Primary Dx); Hypertensive heart disease without heart failure Start: 12-10-2021 End: 12-10-2021 ambulatory Aziz Bakhous Other [facility] Other Start: 12-10-2021 Office outpatient vi sit 25 minutes Aziz Bakhous [facility] Start: 11-18-2021 End: 11-18-2021 ambulatory Aziz Bakhous Other [facility] Other Start: 11-18-2021 Telephone encounter Vladimir Clifton [facility] Start: 10-01-2021 End: 10-01-2021 ambulatory Loi Buenrostro Other [facility] Other Start: 10-01-2021 Office outpatient vi sit 25 minutes Loi Buenrostro [facility] Start: 09-16-2021 End: 09-16-2021 ambulatory Christian Valdez Other [facility] Other Start: 09-16-2021 Office outpatient vi sit 5 minutes Christian Valdez [facility] Urgent Care [facility] Start: 04-02-2021 Patient encounter procedure Lon Miller Work Phone: ZQ-Clgfvpsrxksx-Ksurj Work Phone: Start: 03-05-2021 Patient encounter procedure Referring Provider Unknown BX-Lcsmltwuunhj-Kzlgj Work Phone: Start: 02-08-2021 AUDIT Lon Miller Work Phone: CX-Focglteuznck-Pkeak Work Phone: Start: 02-07-2021 End: 02-08-2021 Evaluation and management of inpatient Analy [facility] Kaylee [id number] [id number] Start: 01-28-2019 End: 01-28-2019 Patient encounter procedure GIO JAVED Facility:[facility] Start: 10-21-2018 End: 10-22-2018 Patient encounter procedure DEFAULT PHYSICIAN Facility:[facility] Start: 10-19-2018 End: 10-20-2018 Patient encounter procedure NELSONAB Lindsay BARILLAS Facility:[facility] Start: 10-15-2018 End: 10-16-2018 Patient encounter procedure DEFAULT PHYSICIAN Facility:[facility] Start: 09-29-2018 End: 09-30-2018 Patient encounter procedure DEFAULT PHYSICIAN Facility:[facility] Start: 09-24-2018 End: 2018 Patient encounter procedure DEFAULT PHYSICIAN Facility:[facility] Procedures Date Procedure Procedure Detail Performing Clinician Start: 07-06-2023 Doppler ultrasonogra phy of kidney MD Lon Miller Work Phone: Start: 02-07-2021 End: 02-08-2021 EKG impression Carmel Miles Start: 06-03-2019 Adult depression scr eening assessment Ashanti Foote MD Work Phone: Cholecystectomy Flores Marie Colonoscope, device (physical object) Flores Marie Depression screening Lon Miller Other Excision of breast tissue Ka mary Marie Hysterectomy Flores Marie Plan of Treatment Date Care Activity Detail Author Start: 02-04-2025 DIABETES SCREEN DIABETES SCREEN [facility] Start: 12-24-2024 DIABETES SCREEN DIABETES SCREEN [facility] Start: 09-10-2023 Bacteria identified in Urine by Culture [facility] Start: 06-12-2022 Influenza vaccination INFLUENZ A (Season Ended) [facility] Start: 01-17-2022 End: 03-19-2022 ALDOSTERONE/DIRECT RENIN RATIO ALDOSTERONE/DIRECT RENIN RATIO Lab Routine Fatigue, unspecified type Expected: 01/17/2022, Expires: 03/19/2022 [facility] Work Phone: Comment on above: Expected: 01/17/2022 , Expires: 03/19/2022 Start: 01-17-2022 End: 03-19-2022 Comprehensive metabolic 2000 panel - Serum or Plasma COMP METABOLIC PANEL Lab Routine Fatigue, unspecified type Expected: 01/17/2022, Expires: 03/19/2022 [facility] Work Phone: Comment on above: Expected: 01/17/2022 , Expires: 03/19/2022 Start: 12-24-2021 End: 02-23-2022 ALDOSTERONE/DIRECT RENIN RATIO [facility] Work Phone: Comment on above: Expected: 12/24/2021 , Expires: 02/23/2022 Start: 10-12-2021 ADVANCE DIRECTIVE DISCUSSION ADVANCE DIRECTIVE DISCUSSION [facility] Start: 06-12-2021 Influenza vaccination INFLUENZA (#1) [facility] Start: 03-05-2021 Patient encounter procedure [facility] [place] Start: 03-05-2021 Patient encounter procedure [facility] Start: 02-08-2021 End: 02-08-2022 Atorvastatin 80 mg Oral Tablet Daily ; Tablet (LIPITOR)DOSE = 80 mg Oral Daily Start: 07-Feb-2021 End: 07-Feb-2022 Ordered: 07-Feb-2021 Defta, Carmel Intent [facility] Start: 02-07-2021 End: 02-08-2022 [facility] Comment on above: once now and daily P RN now and daily PRN Start: 06-03-2020 Adult depression screening assessment DEPRESSION SCREENING [facility] Start: 2017 BONE DENSITY BONE DENSITY [facility] Start: 2017 PNEUMOVAX AGE 65 AND OVER WITH 5YR LOOKBACK (#1) PNEUMOVAX AGE 65 AND OVER WITH 5YR LOOKBACK (#1) [facility] Start: 1997 COLOGUARD (FIT-DNA) COLOGUARD (FIT-D NA) [facility] Start: 1997 Colonoscopy COLONOSCOPY [facility] Start: 1997 COLORECTAL CANCER SCREENING COLORECTAL CANCER SCREENING [facility] Start: [address] COLONOGRAPHY [facility] Start: 1997 FECAL OCCULT BLOOD FECAL OCCULT BLOO D [facility] Start: 1997 LIPID SCREEN LIPID SCREEN [facility] Start: 1997 SIGMOIDOSCOPY SIGMOIDOSCOPY [facility] Start: 1992 Mammography MAMMOGRAM [facility] Start: 1971 Urine microalbumin profile DTAP,TDAP,TD (1 - Tdap) [facility] Start: 1970 HEPATITIS C SCREENING HEPATITIS C SC REENING [facility] Start: 1958 PNEUMOCOCCAL: 65+ (1 - PCV) PNEUMOCOCCAL: 65+ (1 - PCV) [facility] Start: 1957 COVID-19 VACCINE (#1) COVID-19 VACCI NE (#1) [facility] Start: 1957 COVID-19 VACCINE (1) COVID-19 VACCIN E (1) [facility] ALDOSTERONE, 24 HOUR URINE ALDOSTERONE, 24 HOUR URINE Lab Routine Hypertensive heart disease without heart failure Aldosteronism (HCC) Ordered: 12/24/2021 [facility] Work Phone: Comment on above: Ordered: 12/24/2021 ALDOSTERONE, 24 HOUR URINE ALDOSTERONE, 24 HOUR URINE Lab Routine Fatigue, unspecified type Ordered: 01/17/2022 [facility] Work Phone: Comment on above: Ordered: 01/17/2022 End: 03-14-2023 Ct abdomen w/o & w/contrast material CT ADRENAL WO/W IVCON Radiology Routine Adrenal adenoma, unspecified laterality 1 Occurrences starting 02/12/2022 until 03/14/2023 [facility] Work Phone: Comment on above: 1 Occurrences starti ng 02/12/2022 until 03/14/2023 Sodium [Moles/time] in 24 hour Urine SODIUM 24 HR URINE Lab Routine Hypertensive heart disease without heart failure Aldosteronism (HCC) Ordered: 12/24/2021 [facility] Work Phone: Comment on above: Ordered: 12/24/2021 Sodium [Moles/time] in 24 hour Urine SODIUM 24 HR URINE Lab Routine Fatigue, unspecified type Ordered: 01/17/2022 [facility] Work Phone: Comment on above: Ordered: 01/17/2022 End: 02-02-2023 Us retroperitoneal real time w/image limited US RENAL ARTERY/VEIN Radiology Routine Fatigue, unspecified type 1 Occurrences starting 01/03/2022 until 02/02/2023 [facility] Work Phone: Comment on above: 1 Occurrences starti ng 01/03/2022 until 02/02/2023 Immunizations Immunization Date Immunization Notes Care Provider Yunior quintero 08-19-2022 influenza virus vaccine, split virus (incl. purified surface antigen) Lon Miller Other [facility] Other 08-19-2022 influenza virus vaccine, unspecified formulation Flores Marie [facility] 02-19-2019 zoster vaccine recombinant Ashanti Foote MD Work Phone: [facility] 12-12-2018 zoster vaccine recombinant Ashanti Foote MD Work Phone: [facility] 07-09-2018 influenza virus vaccine, split virus (incl. purified surface antigen) Lon Miller Other [facility] Other 07-09-2018 influenza virus vaccine, unspecified formulation Flores Luangelito [facility] 07-09-2018 influenza, high dose seasonal, preservative-free Ashanti Foote MD Work Phone: [facility] 06-25-2017 influenza virus vaccine, split virus (incl. purified surface antigen) Lon Miller Other [facility] Other 06-25-2017 influenza virus vaccine, unspecified formulation Flores Luangelito [facility] 06-25-2017 influenza, injectabl e, quadrivalent, preservative free Ashanti Foote MD Work Phone: [facility] 07-18-2016 influenza virus vaccine, unspecified formulation Flores Lue [facility] 07-18-2016 influenza, seasonal, injectable, preservative free Ashanti Foote MD Work Phone: [facility] 07-18-2016 tetanus and diphther ia toxoids, adsorbed, preservative free, for adult use (5 Lf of tetanus toxoid and 2 Lf of diphtheria toxoid) Lon Miller Other [facility] Other 08-24-2015 influenza virus vaccine, unspecified formulation Flores Lue [facility] 08-24-2015 influenza, injectabl e, quadrivalent, preservative free Ashanti Foote MD Work Phone: [facility] 07-12-2015 influenza, injectabl e, madin chuck canine kidney, preservative free Ashanti Foote MD Work Phone: [facility] 07-22-2013 tetanus and diphther ia toxoids, adsorbed, preservative free, for adult use (5 Lf of tetanus toxoid and 2 Lf of diphtheria toxoid) Lon Miller Other [facility] Other 10-20-2012 influenza virus vaccine, unspecified formulation Ashanti Foote MD Work Phone: [facility] Payers Date Payer Category Payer Self-pay [id number] 2020 Unknown MMO MMO MEDICARE SUPPLEMENT [id number] 2020-Present [phone] [address] [place] [address] Indemnity [id number] 2015 Medicare MEDICARE MEDICAR E A AND B [id number] 2015-Present [phone] [address] [address] [place] [address] Medicare [id number] 1959 Medicare [id number] 1959 Unknown [id number] [id number] 1954 Unknown [id number] 2.16.840.1.150290.3.579.2. 647 1952 Unknown [id number] 2.16.840.1.330909.3.579.2. 647 1952 Unknown [id number] 2.16.840.1.822997.3.579.2. 647 1952 Unknown [id number] 2.16.840.1.138844.3.579.2. 647 1952 Unknown [id number] 2.16.840.1.025249.3.579.2. 647 1952 Unknown [id number] 2.16.840.1.895778.3.579.2. 647 1952 Unknown [id number] 2.16.840.1.737863.3.579.2. 593 1952 Unknown [id number] 2.16.840.1.290540.3.579.2. 593 1952 Unknown [id number] 2.16.840.1.491770.3.579.2. 593 1952 Unknown [id number] 2.16.840.1.542638.3.579.2. 593 1952 Unknown [id number] 2.16.840.1.819265.3.579.2. 593 1952 Unknown [id number] 2.16.840.1.417843.3.579.2. 593 1952 Unknown [id number] 2.16.840.1.284437.3.579.2. 593 1952 Unknown [id number] 2.16.840.1.619308.3.579.2. 593 1952 Unknown [id number] 2.16.840.1.095968.3.579.2. 727 Medicare Medicare-OP No Part B [id number] Private Health Insurance [employer] Insurance [facility] [id number] Unknown [id number] Unknown Unknown [id number] 2.16.840.1.665690.3.579.2. 531 Unknown [id number] 2.16.840.1.850438.3.579.2. 531 Social History Date Type Detail Facility [facility] Tobacco smoking consumption unknown [facility] Start: 10-20-2012 Current every day smoker Current every day smoker GZ-Ievltfukbwrv-Fqodm Work Phone: Start: 10-20-2012 Tobacco smoking status NHIS Smokes tobacco daily [facility] History of tobacco use Cigarette Smoker [facility] Start: 10-20-2012 Tobacco use and exposure Smokeless tobacco non-user [facility] Start: 12-24-2021 Alcohol intake Current non-dr molding fitter of alcohol (finding) [facility] Start: 1950 Sex Assigned At Not on file [facility] Start: 12-14-2021 End: 02-04-2022 Exposure to SARS-CoV-2 (event) Not sure [facility] Start: 1950 Sex Assigned At Female [facility] Sex Assigned At [facility] Start: 07-03-2021 End: 07-03-2021 Tobacco smoking status NHIS Smoker (finding) [facility] Start: 09-08-2023 Tobacco smoking status Light tobacco smoker (finding) [facility] Functional Status Date Assessment Result Facility 09-08-2023 Functional Status N/A [facility] Functional observable [facility] Mental Status Date Assessment Result Facility 02-08-2021 Cognitive functi ons [id number] [facility] Clinical Notes 02-07-2021 to 11-09-2023 Note Date & Type Note Facility 11-09-2023 Note [facility] Cardiology Clinic Note Chief Complaint: Patient here for 1 year follow up CAD and hypertension. Had labs and renal ultrasound in Jul 2023. She only takes spironolactone PRN. She took half tablet about 4 months ago for elevated BP, and states she hasn't had recurrence. Denies chest pain, SOB, and palpitations. HPI: Syed Michelle is a 73 y.o. female With a history of moderate disease of the left anterior descending, resistant hypertension in the past and chronic kidney disease here in routine follow-up Doing well; no new cardiovascular complaints Blood pressure appears to be well-controlled She has a history of brain bleeds 3 to 4 years ago; therefore she has not been on aspirin. Cardiology ROS: Review of Systems Neurological: Positive for headaches. All other systems reviewed and are negative. Past Medical History She has a past medical history of Coronary artery disease, Hypertension, Hypokalemia, and Intracranial hemorrhage (CMS/HCC). Surgical History She has a past surgical history that includes Cholecystectomy; Hysterectomy; Mastectomy (Left); and Cardiac catheterization (10/29/2018). Social History She reports that she has been smoking cigarettes. She has a 3.75 pack-year smoking history. She has never used smokeless tobacco. She reports that she does not currently use alcohol. No history on file for drug use. Family History Family History Problem Relation Name Age of Onset Other (carotid atherosclerosis) Mother Aneurysm Father Hypertension Father Hypertension Brother Allergies Sulfa (sulfonamide antibiotics) and Linaclotide Medications Current Outpatient Medications: atorvastatin (Lipitor) 80 mg tablet, Take 80 mg by mouth at bedtime., Disp: , Rfl: carvedilol (Coreg) 25 mg tablet, TAKE 1 TABLET BY MOUTH TWICE A DAY, Disp: 180 tablet, Rfl: 3 hydrALAZINE (Apresoline) 50 mg tablet, Take 1 tablet (50 mg) by mouth in the morning and at bedtime., Disp: 180 tablet, Rfl: 3 magnesium oxide (Mag-Ox) 400 mg (241.3 mg magnesium) tablet, magnesium 400 mg (as magnesium oxide) tablet TAKE 1 TABLET BY MOUTH EVERY DAY WITH FOOD, Disp: , Rfl: potassium chloride CR (K-Tab) 20 mEq ER tablet, TAKE 1 TABLET BY MOUTH EVERY MORNING. DO NOT CRUSH, CHEW, OR SPLIT, Disp: 90 tablet, Rfl: 3 spironolactone (Aldactone) 25 mg tablet, Take 0.5 tablets (12.5 mg) by mouth if needed each day (for SBP > 130)., Disp: 45 tablet, Rfl: 3 traZODone (Desyrel) 50 mg tablet, Take 50 mg by mouth if needed., Disp: , Rfl: Last Recorded Vitals BP 144/84 (BP Location: Right arm, Patient Position: Sitting) Pulse 52 Ht 1.727 m (5' 8 ) Wt 54.9 kg (121 lb) SpO2 99% BMI 18.40 kg/m??? Physical Examination: GENERAL: alert and oriented x3, well developed, in no acute distress. HEAD: atraumatic, normocephalic. EYES: TUCKER, EOMI. NECK: trachea midline, no JVD present, no carotid bruits present. CARDIAC: S1, S2 present. RRR. No murmur, rubs, or gallops. RESPIRATORY: CTAB, no increased effort of breathing, no rales, rhonchi, or wheezing. ABDOMEN: soft, nontender, nondistended. EXTREMITIES: no lower extremity edema, peripheral pulses are 2+ bilaterally. No rash/skin discoloration present. NEURO: strength/sensation equal and symmetric in bilateral upper and lower extremities. PSYCH: appropriate mood, affect, and judgement. Investigations: Service Date: 10/19/2018 Cardiovascular Laboratory Report FINAL IMPRESSIONS: 1. 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 2. Mild disease of the left circumflex and right coronary arteries with superimposed spasm in the proximal right coronary artery. 3. Normal global left ventricular systolic function by noninvasive imaging. 4. Severe systemic hypertension. RECOMMENDATIONS/PLAN: 1. Close clinical observation for development of any groin complications. 2. Aggressive cardiovascular risk factor modification. 3. Optimization of medical management; will add Imdur 30 mg a day for suspected coronary spasm. 4. Follow up with me in the [facility] in 3-4 weeks. 5. Follow up with Dr. Miller as scheduled. ECHO 10/21/2018 Global left ventricular systolic function is normal (Visually estimated EF 55%). No regional wall motion abnormality. Grade 1, mild diastolic dysfunction (abnormal relaxation). Normal right ventricular systolic function. Unable to assess right sided pressures due to lack of measurable tricuspid regurgitation. No significant valvular abnormalities Renal US 10/21/2018 No stenosis of the RIGHT renal artery. No stenosis of the LEFT renal artery. A 1.6 x 1.8 cm cyst noted in the LEFT kidney. Mildly reduced kidney size bilaterally. The superior mesenteric artery Doppler flows are suggestive of approximately 50% stenosis. The celiac artery Doppler flows are suggestive of 50-70% (closer to 50%) stenosis. Assessment: Coronary atherosclerosis - Moderate disease of the left ant (more content not included)... [facility] 09-10-2023 Evaluation note Encounter Date Diagnosis Assessment Notes Aug, Dysuria (ICD-10 - R30.0) [facility] Other [id number] Hospital Discharge instructions Patient Education 09/08/2023 11:18:03 Dietary Guidelines to Help Prevent Kidney Stones Dietary Guidelines to Help Prevent Kidney Stones Kidney stones are deposits of minerals and salts that form inside your kidneys. Your risk of developing kidney stones may be greater depending on your diet, your lifestyle, the medicines you take, and whether you have certain medical conditions. Most people can lower their chances of developing kidney stones by following the instructions below. Your dietitian may give you more specific instructions depending on your overall health and the type of kidney stones you tend to develop. What are tips for following this plan? Reading food labels Choose foods with no salt added or low-salt labels. Limit your salt (sodium) intake to less than 1,500 mg a day. Choose foods with calcium for each meal and snack. Try to eat about 300 mg of calcium at each meal.Foods that contain 200 500 mg of calcium a serving include: ?8 oz (237 mL) of milk, gnrhgpz-vbkmzgbwujzu-cifcg milk, and calcium- fortifiedfruit juice. Calcium-fortified means that calcium has been added to these drinks. ?8 oz (237 mL) of kefir, yogurt, and soy yogurt. ?4 oz (114 g) of tofu. ?1 oz (28 g) of cheese. ?1 cup (150 g) of dried figs. ?1 cup (91 g) of cooked broccoli. ?One 3 oz (85 g) can of sardines or mackerel. Most people need 1,000 1,500 mg of calcium a day. Talk to your dietitian about how much calcium is recommended for you. Shopping Buy plenty of fresh fruits and vegetables. Most people do not need to avoid fruits and vegetables, even if these foods contain nutrients that may contribute to kidney stones. When shopping for convenience foods, choose: ?Whole pieces of fruit. ?Pre-made salads with dressing on the side. ?Low-fat fruit and yogurt smoothies. Avoid buying frozen meals or prepared deli foods. These can be high in sodium. Look for foods with live cultures, such as yogurt and kefir. Choose high-fiber grains, such as whole-wheat breads, oat bran, and wheat cereals. Cooking Do not add salt to food when cooking. Place a salt shaker on the table and allow each person to addhis or her own salt to taste. Use vegetable protein, such as beans, textured vegetable protein (TVP), or tofu, instead of meat inpasta, casseroles, and soups. Meal planning Eat less salt, if told by your dietitian. To do this: ?Avoid eating processed or pre-made food. ?Avoid eating fast food. Eat less animal protein, including cheese, meat, poultry, or fish, if told by your dietitian. To dothis: ?Limit the number of times you have meat, poultry, fish, or cheese each week. Eat a diet free of meat at least 2 days a week. ?Eat only one serving each day of meat, poultry, fish, or seafood. ?When you prepare animal protein, cut pieces into small portion sizes. For most meat and fish, one serving is about the size of the palm of your hand. Eat at least five servings of fresh fruits and vegetables each day. To do this: ?Keep fruits and vegetables on hand for snacks. ?Eat one piece of fruit or a handful of berries with breakfast. ?Have a salad and fruit at lunch. ?Have two kinds of vegetables at dinner. Limit foods that are high in a substance called oxalate. These include: ?Spinach (cooked), rhubarb, beets, sweet potatoes, and Jamaican chard. ?Peanuts. ?Potato chips, greenlandic fries, and baked potatoes with skin on. ?Nuts and nut products. ?Chocolate. If you regularly take a diuretic medicine, make sure to eat at least 1 or 2 servings of fruits or vegetables that are high in potassium each day. These include: ?Avocado. ?Banana. ?Dawson, prune, carrot, or tomato juice. ?Baked potato. ?Cabbage. ?Beans and split peas. Lifestyle Drink enough fluid to keep your urine pale yellow. This is the most important thing you can do. Spread your fluid intake throughout the day. If you drink alcohol: ?Limit how much you use to: ?0 1 drink a day for women who are not . ?0 2 drinks a day for men. ?Be aware of how much alcohol is in your drink. In the [place] one drink equals one 12 oz bottle of beer (355 mL), one 5 oz glass of wine (148 mL), or one 1 oz glass of hard liquor (44 mL). Lose weight if told by your health care provider. Work with your dietitian to find an eating plan and weight loss strategies that work best for you. General information Talk to your health care provider and dietitian about taking daily supplements. You may be told thefollowing depending on your health and the cause of your kidney stones: ?Not to take supplements with vitamin C. ?To take a calcium supplement. ?To take a daily probiotic supplement. ?To take other supplements such as magnesium, fish oil, or vitamin B6. Take nqlk-uwa-irjfwtp and prescription medicines only as told by your health care provider. These include supplements. What foods should I limit? Limit your intake of the following foods, or eat them as told by your dietitian. Vegetables Spinach. Rhubarb. Beets. Canned vegetables. Pickles. Olives. Baked potatoes with skin. Grains Wheat bran. Baked goods. Salted crackers. Cereals high in sugar. Meats and other proteins Nuts. Nut butters. Large portions of meat, poultry, or fish. Salted, precooked, or cured meats, such as sausages, meat loaves, and hot dogs. Dairy Cheese. Beverages Regular soft drinks. Regular vegetable juice. Seasonings and condiments Seasoning blends with salt. Salad dressings. Soy sauce. Ketchup. Barbecue sauce. Other foods Canned soups. Canned pasta sauce. Casseroles. Pizza. Lasagna. Frozen meals. Potato chips. Panamanian fries. The items listed above may not be a complete list of foods and beverages you should limit. Contact a dietitian for more information. What foods should I avoid? Talk to your dietitian about specific foods you should avoid based on the type of kidney stones youhave and your overall health. Fruits Grapefruit. The item listed above may not be a complete list of foods and beverages you should avoid. Contact adietitian for more information. Summary Kidney stones are deposits of minerals and salts that form inside your kidneys. You can lower your risk of kidney stones by making changes to your diet. The most important thing you can do is drink enough fluid. Drink enough fluid to keep your urine pale yellow. Talk to your dietitian about how much calcium you should have each day, and eat less salt and animal protein as told by your dietitian. This information is not intended to replace advice given to you by your health care provider. Make sure you discuss any questions you have with your health care provider. Document Revised: 06/09/2022 Document Reviewed: 06/09/2022 [employer] Patient Education 2022 [employer]. Follow Up Care 08/14/2023 11:28:21 With:Frank MARCUS, LAURA Palacios, URO Address: When: Unknown Comments:[facility] 11-07-2023 Evaluation note* Encounter Date Diagnosis Assessment Notes Treatment Notes Treatment Clinical Notes Aug, Strep pharyngitis (ICD-10 - J02.0) Finish med. : Called pt on 08/21 and her symptoms were resolved. Declines referral to ENT at this time. Will call if further issues. [facility] Other 10-31-2023 Evaluation note* Encounter Date Diagnosis Assessment Notes Treatment Notes Treatment Clinical Notes Jul, Chronic kidney disease, stage 3a (ICD-10 - N18.31) She has a mild chronic kidney disease possibly related to hypertensive nephrosclerosis with GFR range between to 50 -55 ml/min according to the blood pressure and volume status. UA is benign. Pro/Cr 100 mg/g. Patient is not on ACEI/ARB BP and volume status are well controlled I asked the patient to stay away from NSAIDs and to give herself well-hydrated Follow-up with the patient in 6 months Jul, Hypertensive chronic kidney disease with stage 1 through stage 4 chronic kidney disease, or unspecified chronic kidney disease (ICD-10 - I12.9) Blood pressure is well controlled I will continue same other blood pressure medications, Coreg and hydralazine .I advised low salt diet renal US showed no renal arteries stenosis Patient completed work-up for primary hypothyroidism etiology including CT adrenal glands and aldosterone suppression based. Work-up was negative for primary hyperaldosteronism Jul, Hyperaldosteronism (ICD-10 - E26.9) Patient was referred to [facility] endocrinology department. Patient had CAT scan of adrenal glands and aldosterone suppression test which turned to be negative Jul, Hypokalemia (ICD-10 - E87.6) On KCL supplement. Jul, Vitamin D deficiency (ICD-10 - E55.9) 25 OH VD is low at 23I asked the patient to contnue OTC VD supp 2000 U daily Jul, Hypomagnesemia (ICD- 10 - E83.42) On Mg supplement. Mg is WNL Jul, Hyperlipidemia, unspecified hyperlipidemia type (ICD-10 - E78.5) Jul, Hydronephrosis, righ t (ICD-10 - N13.30) Ultrasound for this visit revealed moderate right-sided hydronephrosis. I will refer the patient to Urology clinic [facility] Other 10-09-2023 Evaluation note* Encounter Date Diagnosis Assessment Notes Treatment Notes Treatment Clinical Notes Jul, Sore throat (ICD-10 - J02.9) Jul, Acute non-recurrent maxillary sinusitis (ICD-10 - J01.00) Discussed with patient will cover with cefdinir for possible sinusitis. Finish entire course. Did discuss other possibility of chronic allergy issues, postnasal drip causing sore throat as well. Continue 24-hour antihistamine. Add Flonase regularly. Lungs remain clear. May continue Coricidin as needed. Recommend she follow-up with family doctor if symptoms or not gradually improving over the next week. Patient verbalized understanding of treatment plan. Reassured rapid strep test is negative. She does not currently have strep infection. [facility] Other 10-03-2023 Evaluation note* Encounter Date Diagnosis Assessment Notes Treatment Notes Treatment Clinical Notes Jul, Abdominal pain, unspecified abdominal location (ICD-10 - R10.9) We reviewed her abdominal duplex studies which show no stenosis of bilateral renal arteries and shows celiac and SMA arteries are patent. She has had no further episodes of abdominal pain in over a month now. We discussed the various etiologies of abdominal pain and all of her questions were addressed. She should continue to follow with her primary care provider on any additional symptoms. There is no need for further scheduled follow-up in our office, we can follow her along as needed in the future. She knows to call us with any additional questions or concerns. Jul, Current smoker (ICD-10 - F17.200) We discussed the health risks associated with tobacco smoking. She understands her risk and is unmotivated to quit. [facility] Other 09-22-2023 Evaluation note* Encounter Date Diagnosis Assessment Notes Treatment Notes Treatment Clinical Notes Jun, Sore throat (ICD-10 - J02.9) strep neg Jun, Acute nasopharyngiti s (ICD-10 - J00) Discussed with patient exam and history is consistent with viral upper respiratory infection. Discussed viral nature of illness and typical duration of 7 to 14 days. Advised antibiotics unfortunately do not treat viral illnesses. May use symptomatic treatment such as Mucinex or continuing Coricidin. May use Tylenol for any pain/fever. Follow-up with PCP if not improving over the next 7 days, sooner if significantly worsening symptoms. Patient declines COVID testing in office. Discussed would recommend rapid at home COVID test but should wait another 24 hours prior to testing. [facility] Other 09-12-2023 Evaluation note* Encounter Date Diagnosis Assessment Notes Treatment Notes Treatment Clinical Notes Jun, Sore throat (ICD-10 - J02.9) Jun, Strep pharyngitis (ICD-10 - J02.0) Advised patient that strep test was positive. COVID PCR test negative. Patient reports that she never switched out her toothbrush after previous infection. Advised that this could have led to reinfection. Reviewed allergies and recent antibiotic use. Instructed patient to take antibiotic as prescribed, with food and plenty of water, complete entire course even if feeling better. Advised patient that they are contagious for 24 hours after starting antibiotic. Discussed infection control and good hand hygiene. New tooth brush in 2-3 days after starting antibiotic. Supportive care as directed. Push fluids and rest, Tylenol or Motrin as needed for fever or discomfort, warm salt water gargles, throat lozenges as needed. Patients symptoms should improve in the next 48 hours, eval by PCP or UC if symptoms have not improved with treatment. Discussed in depth warning symptoms that require immediate eval. Patient verbalizes understanding and is agreeable to treatment plan. [facility] Other 09-01-2023 Evaluation note* Encounter Date Diagnosis Assessment Notes Treatment Notes Treatment Clinical Notes Jun, Sore throat (ICD-10 - J02.9) Jun, Strep pharyngitis (ICD-10 - J02.0) Strep throat material was printed Plenty fluids, get plenty of rest. Take the azithromycin as prescribed until gone. Take Tylenol or Motrin as needed for aches pains or fevers. Follow-up with your family physician for reevaluation of your frequent strep infections. [facility] Other 08-22-2023 Evaluation note* Encounter Date Diagnosis Assessment Notes Treatment Notes Treatment Clinical Notes May, Mesenteric ischemia due to arterial insufficiency (ICD-10 - K55.1) May, Other Abdominal pain She does not give a description of mesenteric ischemia. Her episodic pain would be more consistent with gastroesophageal reflux. We will hold off on diagnostic arteriogram at this time and follow her. I will see her back in a month at which time we will perform an ultrasound examination to obtain alternate imaging of the superior mesenteric artery. She will continue to work on smoking cessation. She may wish to take Prilosec which her already takes. She has not had an endoscopy or colonoscopy in quite some time and is aware that these may be helpful given her current symptomatology and family history of colorectal cancer [facility] Other 08-15-2023 Evaluation note* Encounter Date Diagnosis Assessment Notes Treatment Notes Treatment Clinical Notes May, Essential (primary) hypertension (ICD-10 - I10) Chronic problem. Monitor K and renal function on present meds. May, Fatigue, unspecified type (ICD-10 - R53.83) Pt concerned for anemia or thyroid disease. will call w lab results. May, Generalized anxiety disorder (ICD-10 - F41.1) [facility] Other 07-19-2023 Evaluation note* Encounter Date Diagnosis Assessment Notes Treatment Notes Treatment Clinical Notes Apr, Sore throat (ICD-10 - J02.9) Apr, Strep pharyngitis (ICD-10 - J02.0) Rapid strep positive. Discussed strep is a bacterial throat infection. Will treat with amoxil. Discussed importance of finishing entire course of antibiotic. Recommend changing toothbrush and washing bedding after 48 hours on antibiotic to avoid re-exposure. Discussed less contagious after 24 hours on antibiotic. Avoid sharing cups or drinks. May use Tylenol, warm salt water gargles, topical throat sprays or throat lozenges for symptomatic treatment. Fluids/rest encouraged. Follow-up with PCP if not gradually improving over the next 4 to 5 days or continuing fever. Patient/parent verbalized understanding of treatment plan. Discussed may continue Coricidin for other upper respiratory symptoms [facility] Other 07-07-2023 Evaluation note* Encounter Date Diagnosis Assessment Notes Treatment Notes Treatment Clinical Notes Apr, Generalized abdominal pain (ICD-10 - R10.84) Pt agrees to referral for concern that this has happened twice in 2 months. States the pain was very severe. Referral placed to Vascular. [facility] Other 06-06-2023 Evaluation note* Encounter Date Diagnosis Assessment Notes Treatment Notes Treatment Clinical Notes Mar, Sore throat (ICD-10 - J02.9) Mar, Strep pharyngitis (ICD-10 - J02.0) Advised patient that strep test was positive. Instructed to take antibiotic as directed, complete entire course even if feeling better. Allergies and recent antibiotics reviewed. Advised that patient is contagious for 24 hours after starting antibiotic. Discussed good hand hygiene and infection control. New tooth brush and wash linens after 2-3 days of being on antibiotic to prevent reinfection. Discussed supportive care, push fluids and rest, eat soft foods and liquids that are easy to swallow, use throat lozenges and warm salt water gargles, Tylenol/Motrin as needed for fever or discomfort. Symptoms should improve in the next 48 hours, eval by PCP or UC if symptoms have not improved with treatment. Immediate eval if difficultly managing oral secretions, drooling, unilateral neck swelling, hot potato voice, persistent fever, neck pain/stiffness, severe headache, lethargy or any new or concerning symptoms arise. Patient verbalizes understanding and is agreeable to treatment plan [facility] Other 04-26-2023 Evaluation note* Encounter Date Diagnosis Assessment Notes Treatment Notes Treatment Clinical Notes Jan, Hyperaldosteronism (ICD-10 - E26.9) Patient was referred to [facility] endocrinology department. Patient had CAT scan of adrenal glands and aldosterone suppression test which turned to be negative Jan, Chronic kidney disease, stage 3a (ICD-10 - N18.31) She has a mild chronic kidney disease possibly related to hypertensive nephrosclerosis with GFR range between to 50 -55 ml/min according to the blood pressure and volume status. UA is benign. Pro/Cr 100 mg/g. Patient is not on ACEI/ARB BP and volume status are well controlled I asked the patient to stay away from NSAIDs and to give herself well-hydrated Follow-up with the patient in 6 months Jan, Hypertensive chronic kidney disease with stage 1 through stage 4 chronic kidney disease, or unspecified chronic kidney disease (ICD-10 - I12.9) Blood pressure has been elevated at home. I asked the patient to continue monitoring BP at home and to start to take aldactone 25 mg PO daily if remains elevated I will continue same other blood pressure medications, Coreg and hydralazine .I advised low salt diet I will check renal arteries doppler Patient completed work-up for primary hypothyroidism etiology including CT adrenal glands and aldosterone suppression based. Work-up was negative for primary hyperaldosteronism Jan, Hypokalemia (ICD-10 - E87.6) Potassium slightly low.On KCL supplement. I asked the patient to continue high K diet Jan, Vitamin D deficiency (ICD-10 - E55.9) 25 OH VD is low at 19. I asked the patient to start OTC VD supp 2000 U daily Jan, Hypomagnesemia (ICD- 10 - E83.42) On Mg supplement. Will re check Mg level next visit Jan, Hyperlipidemia, unspecified hyperlipidemia type (ICD-10 - E78.5) [employer] Other 03-09-2023 Evaluation note* Encounter Date Diagnosis Assessment Notes Treatment Notes Treatment Clinical Notes Dec, Breast pain, left (ICD-10 - N64.4) Reviewed symptoms and case with mamm tech. They recommend B diagnostic with care to implant area. Explained to Syed and order sent to hospital. Dec, History of breast cancer (ICD-10 - Z85.3) [facility] [id number] NoteCoronary artery disease is stable, no concerning symptomsUnAvita [facility]23 Note Hypertension is well controlled- continue current med regime. States she only has needed Aldactone a couple times since last visit. Renal function remains stable [facility]/U with nephrologistUn[facility] NotePatient here for 1 mo follow up med change. Spironolactone was added at last visit. Had labs a few days ago. Says she usually takes hydralazine twice a day, not 3 times. Denies chest pain. Been very stressed lately caring for her 89 year old sister who recently had TIA. Review of Systems Cardiovascular: Positive for dyspnea on exertion. Neurological: Positive for headaches. All other systems reviewed and are negative.[facility] 12-05-2022 NoteUTP CARDIOLOGY PROGRESS NOTE HPI: Syed Michelle is a 72 y.o. female here for Hypertension and Coronary Artery Disease Patient here for 1 mo follow up med change and HTN. Spironolactone was added at last visit. Had labs a few days ago. Says she usually takes hydralazine twice a day, not 3 times. Denies chest pain. Been very stressed lately caring for her 89 year old sister who recently had TIA. Denied chest pain, reports typical shortness of breath, denied orthopnea. Review of Systems Cardiovascular: Positive for dyspnea on exertion. Neurological: Positive for headaches. All other systems reviewed and are negative. Visit Vitals BP 119/76 (BP Location: Right arm, Patient Position: Sitting) Pulse 64 Ht 1.727 m (5' 8 ) Wt 56.2 kg (124 lb) SpO2 100% BMI 18.85 kg/m??? Smoking Status Every Day BSA 1.64 m??? Allergies Allergen Reactions Sulfa (Sulfonamide Antibiotics) Hives Linaclotide Unknown Medications: Current Outpatient Medications on File Prior to Visit Medication Sig Dispense Refill atorvastatin (Lipitor) 80 mg tablet Take 80 mg by mouth at bedtime. carvedilol (Coreg) 25 mg tablet Take 25 mg by mouth with breakfast and with evening meal. hydrALAZINE (Apresoline) 50 mg tablet Take 50 mg by mouth in the morning and at bedtime. magnesium oxide (Mag-Ox) 400 mg (241.3 mg magnesium) tablet magnesium 400 mg (as magnesium oxide) tablet TAKE 1 TABLET BY MOUTH EVERY DAY WITH FOOD potassium chloride CR (K-Tab) 20 mEq ER tablet Take 1 tablet (20 mEq) by mouth in the morning. Do not crush, chew, or split. 90 tablet 3 spironolactone (Aldactone) 25 mg tablet Take 0.5 tablets (12.5 mg) by mouth if needed each day (for SBP > 130). 45 tablet 3 traZODone (Desyrel) 50 mg tablet Take 50 mg by mouth if needed. No current facility-administered medications on file prior to visit. Physical Exam: Constitutional: Appearance: Normal appearance. Without apparent distress HENT: Head: Normocephalic and atraumatic. Nose: Nose normal. Mouth/Throat: Mouth: Mucous membranes are moist. Eyes: Extraocular Movements: Extraocular movements intact. Conjunctiva/sclera: Conjunctivae normal. Neck: Vascular: No JVD. Cardiovascular: Rate and Rhythm: Normal rate and regular rhythm. Pulses: Dorsalis pedis pulses are 3 on the right side and 3on the left side. Posterior tibial pulses are 3 on the right side and 3 on the left side. Heart sounds: Normal heart sounds, S1 normal and S2 normal. Pulmonary: Effort: Pulmonary effort is normal. Breath sounds: Normal breath sounds. Abdominal: General: Bowel sounds are normal. Palpations: Abdomen is soft. Musculoskeletal: General: Normal range of motion. Cervical back: Normal range of motion. Right lower leg: No edema. Left lower leg: No edema. Skin: General: Skin is warm and dry. Capillary Refill: Capillary refill takes less than 2 seconds. Neurological: General: No focal deficit present. Mental Status: She is alert and oriented to person, place, and time. Psychiatric: Mood and Affect: Mood normal. Behavior: Behavior normal. Thought Content: Thought content normal. Judgment: Judgment normal. Labs: 12/01/22- Renal function normal, K+ normal CBC stable Liver function normal- D/w pt lab results 10/27/22 BUN 13, CR 0.8, K+ 4.4 10/21/22 CBC normal, BUN 13, CR 0.94 K+ 3.2- low Liver function normal TSH normal 1.896 FT4 normal 1.08 Last lab values have been reviewed CV Testin02/20/21 Echo 10/19/18 Cath- No echocardiogram results found for the past 12 months No echocardiogram results found for the past 12 months Assessment/Plan: Hypertensive disorder Hypertension is well controlled- continue current med regime. States she only has needed Aldactone a couple times since last visit. Renal function remains stable F/U with advanced solutions architect Coronary atherosclerosis Coronary artery disease is stable, no concerning symptoms RTC [facility] [address] [facility]* Encounter Date Diagnosis Assessment Notes Treatment Notes Treatment Clinical Notes Oct, Contact with and (suspected) exposure to other viral communicable diseases (ICD-10 - Z20.828) Oct, Strep pharyngitis (ICD-10 - J02.0) Strep throat material was printed Drink plenty fluids, get plenty of rest. Take the amoxicillin as prescribed until gone. Continue home medications as prescribed. Take Tylenol or Motrin as needed for aches pains or fevers. Follow-up with your family physician if no improvement in 2 to 3 days [facility] 12-28-2022 Evaluation note* Encounter Date Diagnosis Assessment Notes Treatment Notes Treatment Clinical Notes Sep, Sore throat (ICD-10 - J02.9) Sep, Viral URI with cough (ICD-10 - J06.9) Advised patient that COVID/Influenza A/B/RSV PCR test and rapid Strep test was negative today. Advised patient that will treat as viral URI. Supportive care as directed, increase fluids and rest, Tylenol/Motrin as directed, OTC cough/cold remedies as directed on packaging such as Cordicidin HBP, cool mist humidifier, throat lozenges. Discussed infection control practices such as good hand washing and mask wearing. Patient to follow up with PCP if symptoms persist or worsen despite treatment. Immediate eval for SOB, difficulty, chest pain, fevers that do not break with antipyretic or any other concerning symptoms as reviewed on patient education handout. Patient verbalizes understanding and is agreeable to treatment plan. Patient left in stable condition [facility] 12-26-2022 Evaluation note* Encounter Date Diagnosis Assessment Notes Treatment Notes Treatment Clinical Notes Sep, Right otitis media with effusion (ICD-10 - H65.91) take medication as directed. Middle ear fluid can be caused from allergies, traveling or viral infections. It may linger. Follow up with PCP if symptoms persist [facility] 10-27-2022 Evaluation note* Encounter Date Diagnosis Assessment Notes Treatment Notes Treatment Clinical Notes Jul, Hyperaldosteronism (ICD-10 - E26.9) Patient was [facility] to [facility] endocr[facility]ology department. Patient had CAT scan of head and neck labs and aldosterone suppression test which turned to be negative Jul, Chronic kidney disease, stage 3a (ICD-10 - N18.31) She has a mild chronic kidney disease possibly related to hypertensive nephrosclerosis with GFR range between 45 to 55 ml/min according to the blood pressure and volume status. Monitor renal function as indicated I asked the patient to stay away from NSAIDs and to give herself well-hydrated Follow-up with the patient in 6 months Jul, Hypertensive chronic kidney disease with stage 1 through stage 4 chronic kidney disease, or unspecified chronic kidney disease (ICD-10 - I12.9) .blood pressure seems well controlled I will continue same blood pressure medication Coreg and hydralazine . Patient completed work-up for primary hypothyroidism etiology including CT adrenal glands and aldosterone suppression based. Work-up was negative for primary hyperaldosteronism Jul, Hypokalemia (ICD-10 - E87.6) Potassium slightly low. I asked the patient to eat banana a day [facility] 08-22-2022 Evaluation note* Encounter Date Diagnosis Assessment Notes Treatment Notes Treatment Clinical Notes May, Dysfunction of both eustachian tubes (ICD-10 - H69.83) Discussed diagnosis with patient, explained to patient that there is middle ear fluid without signs of bacterial infection, antibiotics are not indicated at this time. This is commonly due to ET dysfunction, viral illness, allergies, barotrauma, or recent AOM. Advised patient that fluid in middle ear may take several weeks to resolve. Take rx of steroid medication as directed. Continue Claritin. Supportive treatment as directed, push fluids/test, Tylenol/Motrin for discomfort. Follow up with PCP in 2 weeks or sooner for new or worsening symptoms. Patient verbalizes understanding and is agreeable to treatment plan [facility] 07-01-2022 Evaluation note* Encounter Date Diagnosis Assessment Notes Treatment Notes Treatment Clinical Notes Apr, Sore throat (ICD-10 - J02.9) Apr, Strep pharyngitis (ICD-10 - J02.0) Drink plenty fluids, get plenty of rest. Take the amoxicillin as prescribed until gone. Take the prednisone as prescribed until gone. Gargle with warm salt water for comfort. Tylenol or Motrin for aches pains or fevers. Follow-up with your family physician if no improvement by Thursday. [facility] 06-06-2022 Miscellaneous Notes* Telephone Encounter - Oneal Luz MA - 03/17/2022 8:50 AM EDT FLORA: 12/24/2021 NOV: Not scheduled Patient is sending an update regarding her blood pressure. Thank you, Ginette Luz MA documented in this encounterC[facility]05-03-2022 Miscellaneous Notes* Telephone Encounter - Kusum Bullock MA - 02/11/2022 9:39 AM EDT Please review recent Labs Note: In Progress Aldosterone Component Ref Range & Units 7 d ago 1 mo ago Aldosterone Urine 3.0-<28.1 ug/24hr 3.0 4.3 Component Ref Range & Units 7 d ago 1 mo ago Sodium, 24 hr Urine 40 - 220 mmol/24 hr 231 High 107 Period hours 24 24 Volume mL 1,925 1,225 Component Ref Range & Units 7 d ago 1 mo ago 3 yr ago Protein, Total 6.3 - 8.0 g/dL 6.9 7.1 Albumin 3.9 - 4.9 g/dL 4.8 4.5 Calcium, Total 8.5 - 10.2 mg/dL 9.6 9.6 Bilirubin, Total 0.2 - 1.3 mg/dL 0.6 0.5 Alkaline Phosphatase 34 - 123 U/L 79 73 AST 13 - 35 U/L 20 25 ALT 7 - 38 U/L 21 23 Glucose 74 - 99 mg/dL 111 High 81 CM documented in this [facility]04-14-2022 Miscellaneous Notes* Telephone Encounter - Ashanti Foote MD - 01/23/2022 4:11 PM EDT Noted. Thanks, Ashanti Foote MD, MPH * Telephone Encounter - Arlette Carias Out Of Town Collection Clerk - 01/01/2022 12:26 PM EDT Received various outside medical records. Indexed to chart. documented in this [facility]04-01-2022 Miscellaneous Notes* Telephone Encounter - Oneal Luz MA - 01/10/2022 3:22 PM EDT Please review reply from patient. Thank you, Ginette Luz MA * Telephone Encounter - Oneal Luz MA - 01/10/2022 11:00 AM EDT FLORA: 12/24/2021 NOV: Not scheduled Patient would like to know if there will be any other tests regarding the adrenal glands. Please advise. Thank you, Ginette Luz MA documented in this [facility]03-25-2022 Miscellaneous Notes* Telephone Encounter - Ivette Cervantes APRN.CNP - 01/03/2022 12:[address] Foote, Please sign ULTRA SOUND order if appropriate. When would you like CT completed? Per last note: will do renal artery US (to evaluate for renal artery stenosis) and CT adrenals next time after tests are completed Ivette Cervantes APRN.SHELIA * Telephone Encounter - Kusum Bullock MA - 01/01/2022 3:39 PM EDT Images from the original note were not included. FLORA: 12/24/21 NOV: NONE Pt is requesting CT. From previous office visit 12/24/21 I see no orders for US or CT. Please advise documented in this encounterC[facility] Foundation03-15-2022 NoteHNO ID: [id number] Author: Ashanti Foote MD Service: ? 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 She sees a advanced solutions architect and they recommended she see endocrinology for work up of adrenal issues causing uncontrolled blood pressure. - suppressed renin on 12/05/21. No imaging done including CT adrenal or renal artery US. She was diagnosed with HTN at age 32. Her father and brother have severe HTN. Her father from an intracranial hemorrhage when she was 17 years old. She had brain bleed last February - had severe HTN, found to have bilateral subdural hematomas, self-resolved, did follow with neurosurgery. She had severe HTN during this time and had a bad headache. 150s/80s is pretty usual for her home measurements. She had first taken spironlactone years ago while also on losartan and her BP dropped a lot so this was stopped as a maintenance medication. Dr. Clifton is her new advanced solutions architect. On potassium during breast cancer treatment - was told she has low potassium and is not taking any supplements now. Has family history colon cancer, kidney cancer; no thyroid, pituitary, or adrenal issues She is on hydralazine 25 TID, carvedilol 25 mg BID, losartan 50 mg, nebivolol 5 mg daily, and 12.5 mg spironolactone as needed if BP is very high - has not taken in 2 weeks. She confirmed she is taking both beta blockers. Both PCP and advanced solutions architect change her BP meds. Current Outpatient Medications Medication Sig - SENNA PLUS 8.6-50 mg per tablet Take 2 tablets by mouth daily at bedtime. - spironolactone (ALDACTONE) 25 mg tablet Take 25 mg by mouth once daily. 1/2 tablet as needed - carvedilol (COREG) 25 mg tablet Take 25 mg by mouth twice daily. - losartan (COZAAR) 50 mg tablet Take 50 mg by mouth once daily. - magnesium oxide (MAG-OX) 400 mg (241.3 mg magnesium) tablet Take 1 tablet by mouth. - atorvastatin (LIPITOR) 80 mg tablet Take 80 mg by mouth once daily. - hydrALAZINE (APRESOLINE) 25 mg tablet Take 25 mg by mouth three times daily with meals. - aspirin, enteric coated (ASPIRIN, ENTERIC COATED) 81 mg EC tablet Take 81 mg by mouth once daily. (Patient not taking: Reported on 12/24/2021 ) - FLUoxetine (PROZAC) 10 mg capsule Take 10 mg by mouth once daily. (Patient not taking: Reported on 12/24/2021 ) - KLOR-CON M20 20 mEq tablet Take 20 mEq by mouth twice daily. (Patient not taking: Reported on 12/24/2021 ) - ALPRAZolam (XANAX) 0.25 mg tablet (Patient not taking: Reported on 12/24/2021) - sertraline (ZOLOFT) 25 mg tablet Take 25 mg by mouth once daily. (Patient not taking: Reported on 12/24/2021 ) - NICODERM CQ 21 mg/24 hr APPLY 1 PATCH EVERY DAY DIRECTED (Patient not taking: Reported on 12/24/2021) - nebivolol (BYSTOLIC) 5 mg tablet Take 5 mg by mouth once daily. (Patient not taking: Reported on 12/24/2021 ) No current facility-administered medications for this visit. PAST MEDICAL HISTORY Diagnosis Date - Anxiety - Breast cancer 2008 - History of cigarette smoking - Hyperlipidemia - Hypertension PAST SURGICAL HISTORY Procedure Laterality Date - COLONOSCOPY - HYSTERECTOMY HX - MASTECTOMY HX Modified radical; Left - SENT LYMPH NODE BIOPSY FAMILY HISTORY Problem Relation Age of Onset - other (Myocardial infarction [Other]) Brother 56 - other (Cerebral bleeding [Other]) Father 54 - Diabetes Brother - Cancer Brother Renal Review of Systems: GENERAL: Fatigue yes, for last year Malaise no Weight lost 8 lbs over 3-4 months unintentionally HEAD AND NECK: Headaches Yes, if BP is very high CVS: Negative PULMONARY: Negative GI: Negative system: Negative MUSCULOSKEL: Normal Social History: Social History Tobacco Use - Smoking status: Current Every Day Smoker Packs/day: 1.00 Years: 15.00 Pack years: 15.00 Types: Cigarettes - Smokeless tobacco: Never Used Substance Use Topics - Alcohol use: No - Drug use: No PHYSICAL EXAM BP 151/88 Pulse 65 Ht 5' 8 (1.73m) Wt 130 lb (59.0kg) BMI 19.77 kg/(m2). APPEARANCE: Well appearing, alert, in no acute distress, well-hydrated, well nourished. EYES TUCKER NECK Supple, no adenopathy; thyroid symmetric, normal size, no bruits THYROID normal to inspection, palpation and auscultation HEART RRR with normal S1 and S2, no murmurs, no gallops, no JVD appreciated LUNGS clear to auscultation E (more content not included)...[facility]03-15-2022 History of Present illness Narrative* Ashanti Foote MD - 12/24/2021 1:14 PM EDT Initial Endocrinology Patient Assessment Syed Michelle is a 71 year old female here today for an initial hyperaldosteronism Assessment Referred by: Name: Vladimir Clifton MD History of Present Illness: Past medical history significant for CKD, HTN, CAD on asa, HLD, breast ca diagnosed in 2008 s/p mastectomy (T1N1 disease and she completed chemotherapy and 5 years of hormonal therapy), s/p hysterectomy, 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 She sees a advanced solutions architect and they recommended she see endocrinology for work up of adrenal issues causing uncontrolled blood pressure. - suppressed renin on 12/05/21. No imaging done including CT adrenal or renal artery US. She was diagnosed with HTN at age 32. Her father and brother have severe HTN. Her father from an intracranial hemorrhage when she was 17 years old. She had brain bleed last February - had severe HTN, found to have bilateral subdural hematomas, self-resolved, did follow with neurosurgery. She had severe HTN during this time and had a bad headache. 150s/80s is pretty usual for her home measurements. She had first taken spironlactone years ago while also on losartan and her BP dropped a lot so thiswas stopped as a maintenance medication. Dr. Clifton is her new advanced solutions architect. On potassium during breast cancer treatment - was told she has low potassium and is not taking any supplements now. Has family history colon cancer, kidney cancer; no thyroid, pituitary, or adrenal issues She is on hydralazine 25 TID, carvedilol 25 mg BID, losartan 50 mg, nebivolol 5 mg daily, and 12.5 mg spironolactone as needed if BP is very high - has not taken in 2 weeks. She confirmed she is taking both beta blockers. Both PCP and advanced solutions architect change her BP meds. Current Outpatient Medications Medication Sig SENNA PLUS 8.6-50 mg per tablet Take 2 tablets by mouth daily at bedtime. spironolactone (ALDACTONE) 25 mg tablet Take 25 mg by mouth once daily. 1/2 tablet as needed carvedilol (COREG) 25 mg tablet Take 25 mg by mouth twice daily. losartan (COZAAR) 50 mg tablet Take 50 mg by mouth once daily. magnesium oxide (MAG-OX) 400 mg (241.3 mg magnesium) tablet Take 1 tablet by mouth. atorvastatin (LIPITOR) 80 mg tablet Take 80 mg by mouth once daily. hydrALAZINE (APRESOLINE) 25 mg tablet Take 25 mg by mouth three times daily with meals. aspirin, enteric coated (ASPIRIN, ENTERIC COATED) 81 mg EC tablet Take 81 mg by mouth once daily. (Patient not taking: Reported on 12/24/2021 ) FLUoxetine (PROZAC) 10 mg capsule Take 10 mg by mouth once daily. (Patient not taking: Reported on 12/24/2021 ) KLOR-CON M20 20 mEq tablet Take 20 mEq by mouth twice daily. (Patient not taking: Reported on 12/24/2021 ) ALPRAZolam (XANAX) 0.25 mg tablet (Patient not taking: Reported on 12/24/2021) sertraline (ZOLOFT) 25 mg tablet Take 25 mg by mouth once daily. (Patient not taking: Reported on 12/24/2021 ) NICODERM CQ 21 mg/24 hr APPLY 1 PATCH EVERY DAY DIRECTED (Patient not taking: Reported on 12/24/2021) nebivolol (BYSTOLIC) 5 mg tablet Take 5 mg by mouth once daily. (Patient not taking: Reported on 12/24/2021 ) No current facility-administered medications for this visit. PAST MEDICAL HISTORY Diagnosis Date Anxiety Breast cancer 2008 History of cigarette smoking Hyperlipidemia Hypertension PAST SURGICAL HISTORY Procedure Laterality Date COLONOSCOPY HYSTERECTOMY HX MASTECTOMY HX Modified radical; Left SENT LYMPH NODE BIOPSY FAMILY HISTORY Problem Relation Age of Onset other (Myocardial infarction [Other]) Brother 56 other (Cerebral bleeding [Other]) Father 54 Diabetes Brother Cancer Brother Renal Review of Systems: GENERAL: Fatigue yes, for last year Malaise no Weight lost 8 lbs over 3-4 months unintentionally HEAD & NECK: Headaches Yes, if BP is very high CVS: Negative PULMONARY: Negative GI: Negative system: Negative MUSCULOSKEL: Normal Social History: Social History Tobacco Use Smoking status: Current Every Day Smoker Packs/day: 1.00 Years: 15.00 Pack years: 15.00 Types: Cigarettes Smokeless tobacco: Never Used Substance Use Topics Alcohol use: No Drug use: No PHYSICAL EXAM BP 151/88 Pulse 65 Ht 5' 8 (1.73m) Wt 130 lb (59.0kg) BMI 19.77 kg/(m^2). APPEARANCE: Well appearing, alert, in no acute distress, well-hydrated, well nourished. EYES TUCKER NECK Supple, no adenopathy; thyroid symmetric, normal size, no bruits THYROID normal to inspection, palpation and auscultation HEART RRR with normal S1 and S2, no murmurs, no gallops, no JVD appreciated LUNGS clear to auscultation EXTREMITIES Normal, No deformities, No skin discoloration, No edema NEURO Awake, alert and oriented x 3, No involuntary motions. Lab Value Units Date High Low TSH No results within date range. T4 No results within date range. FTI No results within date range. T3 No results within date range. FREET3 No results within date range. FREET4 No results within date range. FSH No results within date range. LH No results within date range. TESTFREE No results within date range. TESTOST No results within date range. PROL No results within date range. ALPSUB No results within date range. ILGF1 No results within date range. GH No results within date range. DHEAS No results within date range. ACTH No results within date range. COR0 No results within date range. COR30 No results within date range. COR60 No results within date range. RELEVENT OUTSIDE LABS: Test Name Value Interpretation Reference Range Facility ALDOSTERONE LCMS, SERUM on 12-06-2021 Aldosterone 11.8 ng/dL Normal 0.0-30.0 [facility] Comment on above: Performed By: #### CBC #### [facility] [address] [place] [address] Kenny Nicole RENIN ACTIVITY on 12-05-2021 Renin Activity, Plasma <0.167 Critically low 0.167-5.380 [facility] Comment on above: Performed By: #### BMP #### [facility] [address] [place] [address] Kenny Nicole PTH INTACT on 12-03-2021 PTH, Intact 46 pg/mL Normal 15-65 [facility] Comment on above: Performed By: #### BMP #### [facility] [address] [place] [address] Kenny Nicole ALDOSTERONE URNE 24HR on 04-11-2021 Aldosterone U,Random <2.50 Normal Not Estab. [facility] Comment on above: Result Comment: This test was developed and its performance characteristics determined by [facility]. It has not been cleared or approved by the Food and Drug Administration. Performed By: #### BMP #### [facility] [address] [place] [address] Kenny Nicole Aldosterone,U, Timed <4.75 Normal 0.00-19.00 [facility] Comment on above: Result Comment: Adult Ranges Low Sodium Intake 20.00 - 80.00 Normal Sodium Intake 0.00 - 19.00 High Sodium Intake 0.00 - 12.00 Performed By: #### BMP #### [facility] [address] [id number] Kenny Rivera OUTSIDE IMAGING: CT ABD/PELV W CON on 05-09-2021 CT ABD/PELV W CON EXAMINATION: CT ABD/PELV W CON HISTORY: Abdominal pain ; constipation, bloating for several months, increasing in severity COMPARISON: CT abdomen pelvis 08/10/2017 TECHNIQUE: CT images were created with IV contrast. Axial, Coronal, and Sagittal images. Dose reduction techniques were achieved by using automated exposure control and/or adjustment of mA and/or kV according to patient size and/or use of iterative reconstruction technique. FINDINGS: LUNG BASES: No visible pulmonary or pleural disease. LIVER: Stable small hepatic cyst within the posterior right hepatic lobe. No enlargement, atrophy, abnormal density, or significant focal lesion. BILIARY: Cholecystectomy. No abnormal duct dilation. PANCREAS: No lesion, fluid collection, ductal dilatation. SPLEEN: Small hypodensity at the inferior margin of spleen favoring a splenic cyst or hemangioma. ADRENALS: No mass or enlargement. KIDNEYS: No mass, obstruction, or calcification. BOWEL/MESENTERY: No visible mass, obstruction, or bowel wall thickening. AORTA/VASCULAR: No aneurysm or dissection. RETROPERITONEUM: No mass or adenopathy. LYMPH NODES: No adenopathy. URINARY BLADDER: No visible focal wall thickening, lesion, or calculus. PELVIC ORGANS: Hysterectomy. ABDOMINAL WALL: No mass or hernia. BONES: Grade 1, bordering on grade 2, anterior listhesis of L5 on S1 secondary to bilateral pars interarticularis defects. Complete loss of intervening disc space with prominent posterior disc bulging. OTHER: Negative. IMPRESSION: 1. No abnormal or suspicious findings to account for the patient's symptoms. 2. Marked degenerative changes of the lower lumbar spine at L5-S1. Electronically authenticated by: BUCK AGUIRRE Date: 2021-05-09 16:23 Normal ASSESSMENT/PLAN: Resistant hypertension Here to evaluate for hyperaldosteronism. She does have a suppressed renin on lab work from 12/03, onatleast three medications, and HTN from an early age. Plan: - repeat aldosterone/direct renin ratio, CMP to check for hypokalemia - 24 hour urine aldosterone and 24 hour urine sodium and advised to consume 6 grams of sodium a dayfor three days prior to starting collection. - will do renal artery US (to evaluate for renal artery stenosis) and CT adrenals next time after tests are completed - Return to clinic as needed and after labs are completed -- Troy Cristina Internal Medicine PGY-2 1:44 PM 12/24/[address] [facility] STAFF PHYSICIAN NOTE OF PERSONAL INVOLVEMENT IN CARE I have reviewed the consult note obtained and documented by the resident and I personally participated in the johnson components. I have discussed the case and management of the patient's care. The following comments revise or confirm relevant johnson components of their note. IMPRESSION: This is a 71 year old female who presents with suspected primary hyperaldosteronism. PLAN: I agree with the plan outlined above by resident, Dr. Cristina. Will do labs, asked to stop nebivolol as she is also taking carvedilol. To do the renal artery US and CT adrenal after above labs. To return in 3 - 4 months. Will follow. SIGNATURE: Ashanti Foote MD, MPH Endocrinology [facility]03[facility]22 Instructions* Patient Instructions* Theodore Henderson MA - 12/24/2021 12:38 PM EDT For the three days before your urine test, please eat a high salt diet (6 grams of salt a day for three days). You can eat a bouillon cube daily for instance for three days. Please get labs done today. Please stop taking nebivolol and only take carvedilol. Talk to your doctor about your blood pressure if it is not controlled. Do not take the spironolactone when you take these tests. Thank you for choosing the [facility] Department of Endocrinology, Diabetes and Metabolism. Did you know that you need to call 48 hours in advance of your scheduled visit, if you are unable to make your appointment? The Endocrinology and Metabolism [place] thanks you for your commitment, because patients not showing to their appointment results in a lost opportunity for patients to receive [facility] health care at the [facility]. To Cancel an appointment, please choose one of the following: - Call the Appointment Call Center at [phone] - From [facility], Go to Appointments Cancel Appts If cancelling, consider your need to reschedule to prevent further delays in your care. To Schedule an appointment, please choose one of the following: - Call the Appointment Call Center at [phone] - From [facility], Go to Appointments Request an Appt documented in this encounterC[facility]03-01-2022 Evaluation note* Encounter Date Diagnosis Assessment Notes Treatment Notes Treatment Clinical Notes Dec, Hypertensive chronic kidney disease with stage 1 through stage 4 chronic kidney disease, or unspecified chronic kidney disease (ICD-10 - I12.9) Likely from primary hyperaldosteronism .blood pressure seems well controlled here in the clinic despite she is not on aldosterone receptor antagonist .patient could not tolerate spironolactone before due to hypotension. I will continue same blood pressure medication losartan, Coreg and hydralazine . Patient needs work-up for primary hypothyroidism etiology including CT adrenal glands and possible bilateral adrenal gland vein sampling . I will refer patient to [facility] end[facility] clinic blood pressure Dec, Hyperaldosteronism (ICD-10 - E26.9) Dec, Hypokalemia (ICD-10 - E87.6) Hypokalemia resolved despite not being on potassium supplement or spironolactone. I will continue to monitor potassium level since the patient has primary hyperaldosteronism Dec, Chronic kidney disease, stage 3a (ICD-10 - N18.31) She has a mild chronic kidney disease possibly related to hypertensive nephrosclerosis with GFR range between 45 to 55 ml/min according to the blood pressure and volume status. Monitor renal function as indicated [facility] 02-07-2022 Evaluation note* Encounter Date Diagnosis Assessment Notes Treatment Notes Treatment Clinical Notes Nov, Hypokalemia (ICD-10 - E87.6) [facility] 12-06-2021 Evaluation note* Encounter Date Diagnosis Assessment Notes Treatment Notes Treatment Clinical Notes Sep, Contact with and (suspected) exposure to other viral communicable diseases (ICD-10 - Z20.828) Sep, Other Additional time spent conducting pre-visit phone call, screening for symptoms, instructions on social distancing, application and removal of PPE, and cleaning of examination room, equipment and supplies was preformed. Patient education given for testing methodology and results. Patient care instructions given in writting by [facility] Care At Home document. [facility] Other 04-30-2021 NoteSend Summary: Discharge Summary Providers: Provider RoleProvider Name Adolph Analy Martin John T Note Recipients: Jordan Miller MD Discharge: Summary: Admission Date: .07-Feb-2021 19:57:00 Discharge Date: 08-Feb-2021 Attending Physician at Discharge: Analy Anthony Admission Reason: SDH Final Discharge Diagnoses: SDH (subdural hematoma) Procedures: none Condition at Discharge: Satisfactory Disposition at Discharge: .Home Vital Signs: T PRBPSpO2 [id number]/8599% Date/Time02/08 8: 10: 10: 10: 10:00 Range(36.5C - 37C ) (59 - 78 ) (12 - 26 ) (118 - 194 )/ (58 - 94 ) (95% - 100% ) Highest temp of 37 C was recorded at 02/08 0:00 Date: Weight/Scale Type:Height: 08-Feb-2021 00:4460.9 kg / hda334.6 cm Physical Exam: General: in bed, no distress HEENT: normocephalic, MASHA, tongue midline Neuro: A&Ox3, follows commands, VALLE's, 5/5 strength to all extremities Cardiac: S1 & S2 regular Resp: equal chest expansion, lungs clear bilaterally Abd: BS +x4, soft, non-tender Extr: no edema, pulses palpable x4 skin: warm, dry, intact psyche: calm, cooperative Hospital Course: 70 y/o Female with Hx of of CKD, HTN, CAD on asa, HLD, breast ca diagnosed in 2008 s/p mastectomy, s/p hysterectomy, 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 scan of the head showed the known cavernoma but was otherwise negative; she was admitted for hypertensive urgency at that time and then discharged. She returned to the ED 02/07 with persistent headache; MRI brain now showed bilateral subdural hematomas R>L. 02/08 CT angio Head and Neck with no stenosis and bilateral SDH's stable. PT/OT eval with no home needs and discharged to home with scheduled 4 week follow up with Dr Anthony with CT head. Discharge Information: and Continuing Care: Lab Results - Pending: None Radiology Results - Pending: None Discharge Instructions: Activity: activity as tolerated. May shower.. May not drive until follow-up visit. Weight-bearing Instructions: full weight bearing. Pain or discomfort is a guide to cut back on your activity You may shower immediately after discharge Nutrition/Diet: regular Follow Up Appointments: Follow-Up - Neurosurgeon: Physician/Dept/Service: Neurosurgeon Dr. Analy Anthony Scheduled Date/Time: 05-Mar-2021 11:15 Location: [facility]; [facility] [address] [place], [place] Follow-Up: Physician/Dept/Service: CAT Scan of Head Scheduled Date/Time: 05-Mar-2021 09:30 Location: [facility], Radiology Department, 1st floor Registration; [address], [place] Discharge Medications: Home Medication losartan 50 mg oral tablet - 1 tab(s) orally 2 times a day Colace 100 mg oral capsule - 2 cap(s) orally once a day (at bedtime) magnesium oxide 400 mg (240 mg elemental magnesium) oral tablet - 1 tab(s) orally once a day carvedilol 25 mg oral tablet - 1 tab(s) orally 2 times a day FLUoxetine 20 mg oral capsule - 1 cap(s) orally once a day atorvastatin 80 mg oral tablet - 1 tab(s) orally once a day aspirin 81 mg oral tablet - 1 tab(s) orally once a day; RESUME ON 02/10 PRN Medication acetaminophen 325 mg oral tablet - 2 tab(s) orally every 6 hours, As needed, Pain - Mild (1-3) Signature/Cosignature/Attestation: Note Completion: Provider/Team Pager #[phone] Total time spent today was 45 minutes, all of which was spent coordinating patient's discharge Electronic Signatures: Katie Stuart (MAINTENANCE AND UTILITIES SUPERVISOR-TARGET NETWORK ANALYST) (Signed 08-Feb-2021 11:38) Authored: Send Summary, Summary Content, Ongoing Care, Note Completion Last Updated: 08-Feb-2021 11:38 by Katie Stuart (MAINTENANCE AND UTILITIES SUPERVISOR-TARGET NETWORK ANALYST)[facility]04-29-2021 NoteHistory of Present Illness: Service: Service: Surgery History Present Illness: Admission Reason: cavernoma HPI: The patient is a 70 y/o F with a history of CKD, HTN, CAD on asa, breast ca diagnosed in 2008 s/p mastectomy, s/p hysterectomy, HLD, known R cerebellar cavernoma (seen on MRI in 2017) who presented to the OSH with 2-3 weeks of headaches. On 02/03, the patient was seen at the OSH ED where a CT scan of the head showed the known cavernoma but was otherwise negative. She was admitted for hypertensive urgency at that time and then discharged. She returned to the ED today with persistent headache and MRI brain now showed bilateral subdural hematomas R>L. There is some sulcal effacement and brain compression. She denies trauma or head strike. She endorses some dizziness and some blurred vision. PMHx: per above PSHx: per above Social Hx: former smoker Allergies: sulfa drugs Medications: per chart Comorbidities: Comorbid Conditionschronic kidney disease, hypertension Chronic Kidney Diseasehypertension CKD Stageunable to determine Allergies: sulfa drugs: Unknown Medications Prior to Admission: losartan 50 mg oral tablet: 1 tab(s) orally 2 times a day Colace 100 mg oral capsule: 2 cap(s) orally once a day (at bedtime) Aspir 81 oral delayed release tablet: 1 tab(s) orally once a day magnesium oxide 400 mg (240 mg elemental magnesium) oral tablet: 1 tab(s) orally once a day carvedilol 25 mg oral tablet: 1 tab(s) orally 2 times a day FLUoxetine 20 mg oral capsule: 1 cap(s) orally once a day atorvastatin 80 mg oral tablet: 1 tab(s) orally once a day. Objective Information: Objective Information: T PRBPSpO2 [id number]/22220% Date/Time02/07 20:164/29 20: 20: 20: 20:16 Range(36.5C - 36.5C ) (59 - 59 ) (20 - 20 ) (194 - 194 )/ (94 - 94 ) (100% - 100% ) Physical Exam by System: Constitutional: alert, NAD Eyes: normal sclera ENMT: mmm Head/Neck: NCAT Respiratory/Thorax: non-labored respirations Cardiovascular: well perfused extremities Gastrointestinal: non-distended abdomen Extremities: no cyanosis or edema Neurological: alert, Ox3 normal speech, EOMI, PERRL, face symmetric no pronator drift BUE 5/5 HG D B T except R T 4/5 negative hoffmans BLE 5/5 HF KE DF PF SILT Assessment and Plan: Assessment: The patient is a 70 y/o F with a history of CKD, HTN, CAD on asa, breast ca diagnosed in 2008 s/p mastectomy, s/p hysterectomy, HLD, known R cerebellar cavernoma (seen on MRI in 2017) who presented to the OSH with 2-3 weeks of headaches. On 02/03, the patient was seen at the OSH ED where a CT scan of the head showed the known cavernoma but was otherwise negative. She was admitted for hypertensive urgency at that time and then discharged. She returned to the ED today with persistent headache and MRI brain now showed bilateral subdural hematomas R>L. There is some sulcal effacement and brain compression. She denies trauma or head strike. She endorses some dizziness and some blurred vision. Plan: LALA SBP <[address] angio head/neck for spontaneous subdural hematoma hold asa for now Signatures/Attestation/Certification: Note Completion: I am a: Resident/Fellow Attending AttestationI saw and evaluated the patient. I personally obtained the johnson and critical portions of the history and physical exam or was physically present for johnson and critical portions performed by the resident/fellow. I reviewed the resident/fellows documentation and discussed the patient with the resident/fellow. I agree with the resident/fellows medical decision making as documented in the note. I personally evaluated the patient [id number] Comments/ Additional Findings i personally reviewed CTA and there is no evidence of aneurysm/vascular malformation. I discussed the risks of subdural hematomas including expansion, brain compression, seizures. I recommended observation close follow-up. She should get a repeat CT head with and without contrast in 3 to 4 weeks and follow-up with me in clinic at that time. I explained that between now and then, if she were to have increased headaches, weakness, balance problems, vision changes, seizure, she should go to the emergency department urgently for CT of the head without contrast. Attending Provider Inpatient Certification StatementI certify this patients need for inpatient care based on the above documentation including; the order to admit as inpatient, the anticipated length of stay, diagnosis, problem list and plan of care, and discharge plan. Admission Order - View OnlyCurrent Admission Order. [place] [facility] [place] Diagnosis, D18.00 Cavernoma Transfer to, [facility]: [facility] [place]lee TT04 Division Admitting Service, Neurosurgery Level of Care, Stepdown Carmel Miles Electronic Signatures: De (more content not included)...[facility] + Plan note No data available for this section [facility] Evaluation note* Neurological: [id number],EOMI, FS, TMNo PD R / LUE 5 / 5LE 5 / 5SILT x 4ext grossly [facility]* Diagnosis Aldosteronism (HCC)- Primary Hyperaldosteronism, unspecified Hypertensive heart disease without heart failure Unspecified hypertensive heart disease without heart failure documented [facility] this encounter [facility]* Diagnosis Fatigue, unspecified type- Primary documented in this encounter [facility]* Diagnosis Fatigue, unspecified type- Primary [facility] this encounter [facility]* Diagnosis Adrenal adenoma, unspecified laterality documented in this encounter [facility] noteNortCater[facility] Other Evaluation noteNo InformationNortCaterna Other Evaluation noteNo assessment information available [facility] Work Phone: History general Narrative - Reported* Type Description Date Medical History hypercholesterolemia Medical History anxiety Medical History hypertension Medical History OAB Medical History INTRADUCTAL AND INFILTRATING PIPPA ANDI BREAST CANCER Medical History CORNARY ARTERY DISEASE MILD Medical History hypokalemia Medical History Subdural hematoma, DR ANTHONY FROM [facility] Surgical History left mastectomy with reconstruc tion Surgical History wisdom teeth extract Surgical History hysterectomy Surgical History cholecystectomy Surgical History colonoscopy Surgical History cardiac heart cath Hospitalization History childbirth Hospitalization History see above sx Hospitalization History BLEEDING ON THE [facility] Now [facility] Don[facility] Other History general [facility] - [facility] Other History general Narrative - Reported* Type Description Date Medical History hypercholesterolemia Medical History anxiety Medical History hypertension Medical History OAB Medical History INTRADUCTAL AND INFILTRATING PIPPA ANDI BREAST CANCER Medical History CORNARY ARTERY DISEASE MILD Medical History hypokalemia Medical History Subdural hematoma, DR ANTHONY FROM [facility] Medical History Hypertension Medical History Hyperlipidemia Medical History Breast cancer 10 yea rs prior treated with left mastectomy post procedure chemotherapy. She was node negative and was on hormone suppression for 5 years and is currently free of disease Surgical History left mastectomy with reconstruc tion Surgical History wisdom teeth extract Surgical History hysterectomy Surgical History cholecystectomy Surgical History colonoscopy Surgical History cardiac heart cath Hospitalization History childbirth Hospitalization History see above sx Hospitalization History BLEEDING ON THE [facility] Other Hospital Discharge instructions* Activity:activity as tolerated. May shower. May not drive until follow-up visit. Weight-bearing Instructions: full weight bearing. * - -Patient Instructions:- Call 911 or go directly to the Emergency Room if you have ANY of the following symptoms: 1. Sudden weakness or numbness of the face, arm or leg, especially on one side of the body 2. Sudden difficulty speaking or understanding 3. Sudden trouble seeing in one or both eyes 4. Sudden trouble walking, dizziness, loss of balance or lack of coordination 5. Persistent one-sidedheadache 6. Loss of conscious or decreased conscious, fainting or seizures. * Activity:Pain or discomfort is a guide to cut back on your activity. You may shower immediately after discharge. * Medication Instructions:Remember when taking Acetaminophen to NOT exceed 1000 mg per dose or 4000 mg per day. Taking too much Acetaminophen at one time can damage your liver. Call MD if you have any questions about your medications. If you are taking a narcotic pain medication, check to make sure it does NOT contain acetaminophen before taking additional acetaminophen. To prevent constipation while taking narcotic pain medications, ensure that you drink plenty of water, eat fiber rich foods (a good source is fruit) and increase activity progressively. * Call Physician If:Call your MD or seek immediate medical attention if you experience any of the following symptoms: 1. Fever of 101.5 (38.5 C) or greater 2. Seizures 3. Nausea with vomiting 4. Double, blurry or loss of vision 5. Confusion 6. Severe headaches that make you nauseous and vomit 7. Drainage or swelling around your incision 8. Trouble speaking 9. Loss of movement or weakness in your arms or legs 10. Trouble controlling your bowels or bladder 11. Fainting or passing out 12. Separationof the incision, or tearing of the incision line 13. Large fluid collection under or around the incision 14. Difficultly swallowing for Cervical patients 15. Swelling, pain, heat or redness in your legs and/or calves. * Follow-Up - Neurosurgeon:Physician/Dept/Service: Neurosurgeon, Dr. Analy Cullencheduled Date/Time:05-Mar-2021 11:15Location: [facility]; [facility] [place] [address], [address] [place], [place] Number: [phone]: 4 week follow up visit; to have CT scan of Head prior to this appointment; Bring Insurance Card and Photo ID * Follow-Up:Physician/Dept/Service: CAT Scan of HeadScheduled Date/Time: 05-Mar-2021 09:30Location: [facility], Radiology Department, 1st floor Registration; [address], [place] Number: [phone]: arrive 15 minutes early for registration; Bring Insurance Card and Photo ID. You have appointment with Dr Anthony at 11:15, after CT scan. [facility] note No data available for this section [facility] [place] [facility] Dequan Reason for referral (narrative)* Diagnostic Procedure Only (Routine) - Pending Review Specialty Diagnoses / Procedures Referred By Miguel Ángel mendez Referred To Contact US IMAGING Diagnoses Fatigue, unspecified type Procedures US RENAL ARTERY/VEIN US RETROPERITONEAL REAL TIME W/IMAGE LIMITED Ashanti Foote MD [address] [place] [address] Us Imaging Referral ID Status Reason Start Date Expiration Date Visits Requested Visits Authorized [id number] Pending Review Auto-Generat ed Referral 01/03/2022 02/02/2023 1 1 [facility] Summary Purpose Family History No Family History Records FoundUnknown Family Member Name Dates Details Family history of hypertensi on: Father(V17.49, Z82.49) Status:Active Family history of cerebral h emorrhage: Father(V17.2, Z82.0) Status:Active Unknown Family Member Name Dates Details Family history of hypertensi on: Father(V17.49, Z82.49) Status:Active Family history of cerebral h emorrhage: Father(V17.2, Z82.0) Status:Active Unknown Family Member Name Dates Details Family history of hypertensi on: Father(V17.49, Z82.49) Status:Active Family history of cerebral h emorrhage: Father(V17.2, Z82.0) Status:Active Relationship Condition Age at Onset Recorded Date/T dipesh Not Specified Malignant neoplasm of colon Unknown sister Malignant neoplasm of colon Unknown brother Hypertension Unknown Diabetes mellitus Unknown Advance Directives No Advanced Directives Records Found Advance Directive Response Recorded Date/ Time Advance Directives No January 01 3:17pm Advance Directive Response Recorded Date/ Time Advance Directives No January 01 2:17pm Hospital Course Note MR#: [id number] [facility] Pt. Name: Syed Michelle Admitted: 01/28/2019 Discharged: 01/28/2019 Date of : 1950 Physician: Gio Javed MD DISCHARGE SUMMARY DIAGNOSIS ON ADMISSION: Syncope. DIAGNOSIS ON DISCHARGE: 1. Syncope due to decreased intravascular volume, resolved. 2. Acute kidney injury, improving. 3. Hypertension. 4. Nonobstructive coronary artery disease. 5. History of breast cancer. 6. Chronic anxiety disorder. HOSPITAL COURSE: This is a 68-year-old female who has had a colonoscopy yesterday and in the evening she felt weak and passed out. The patient was brought by the family to the ER. The patient was also found to have hypokalemia and hypomagnesemia, which was supplemented with oral potassium and IV magnesium supplementation. Serial troponins were negative for acute coronary syndrome. EKG done at our facility shows normal sinus rhythm with a heart rate of 50 beats per minute with possible mild ST depression in lead 2 and lead 4, le (more content not included)... Reason for Referral Specialty Diagnoses / Procedures Referred By Miguel Ángel mendez Referred To Contact CT IMAGING Diagnoses Adrenal adenoma, unspecified laterality Procedures CT ADRENAL WO/W IVCON CT ABDOMEN W & W/O CONTRAST Ashanti Foote MD [address] [place] [address] Ct Imaging Referral ID Status Reason Start Date Expiration Date Visits Requested Visits Authorized [id number] Pending Review Auto-Generat ed Referral 02/12/2022 03/14/2023 1 1 Reason *Waiting for appt Possible SMA stenosis - recent ER report and CT from [place] on 04/11. This OV note. Thank you. Diagnosis 1 Generalized abdomina l pain (R10.84) Referral Organization [facility] Referring Provider First Name Lon Referring Provider Last Name Paul Referring Provider Specialty [facility]ine Referred Organization [facility] Referred Provider Mukesh Fam Referred Address [address] [place] [phone] Referred Provider Specialty Vascular Jeffry arora Referral Priority Routine General Notes Kayla Maldonado 02:35:09 PM >received today. attachments made, notes locked, referral faxed Chief Complaint Ms. SYED MICHELLE is here for neurosurgical follow-up visit.Ms. SYED MICHELLE is here for neurosurgical follow-up visit. Chief Complaint and Reason for Visit Chief Complaint superior mesenteric artery stenosis high bp Additional Source Comments INFORMATION SOURCE (unrecogn ized section and content) DATE CREATED AUTHOR 02/01/2019 [facility] DATE CREATED AUTHOR AUTHOR'S ORGANIZ ATION 03/11/2021 [facility] DATE CREATED AUTHOR AUTHOR'S ORGANIZ ATION 04/06/2021 [facility] DATE CREATED AUTHOR AUTHOR'S ORGANIZ ATION 04/07/2021 [facility] DATE CREATED AUTHOR AUTHOR'S ORGANIZ ATION 02/13/2022 [facility] DATE CREATED AUTHOR AUTHOR'S ORGANIZ ATION 01/29/2023 [facility] DATE CREATED AUTHOR AUTHOR'S ORGANIZ ATION 10/10/2023 Rahat Ugalde [facility] DATE CREATED AUTHOR AUTHOR'S ORGANIZ ATION 11/09/2023 [facility] DATE CREATED AUTHOR AUTHOR'S ORGANIZ ATION 11/20/2023 [place] <item> Privacy Markings (unrecogniz ed section and content) Section Author: Katie Thomason PROHIBITION ON REDISCLOSURE OF CONFIDENTIAL INFORMATION This notice accompanies a disclosure of information concerning a client made to you with the consent of such client. Source Comments (unrecognize d section and content) In the event this informatio n is protected by the Federal Confidentiality of Alcohol and Drug Abuse Patient Records regulations: The Federal rules restrict any use of the information to criminally investigate or prosecute any alcohol or drug abuse patient.[facility] FoundationIn the event this information is protected by the Federal Confidentiality of Alcohol and Drug Abuse Patient Records regulations: The Federal rules restrict any use of the information to criminally investigate or prosecute any alcohol or drug abuse patient.[facility] FoundationIn the event this information is protected by the Federal Confidentiality of Alcohol and Drug Abuse Patient Records regulations: The Federal rules restrict any use of the information to criminally investigate or prosecute any alcohol or drug abuse patient.[facility] FoundationIn the event this information is protected by the Federal Confidentiality of Alcohol and Drug Abuse Patient Records regulations: The Federal rules restrict any use of the information to criminally investigate or prosecute any alcohol or drug abuse patient.[facility] FoundationIn the event this information is protected by the Federal Confidentiality of Alcohol and Drug Abuse Patient Records regulations: The Federal rules restrict any use of the information to criminally investigate or prosecute any alcohol or drug abuse patient.[facility] FoundationIn the event this information is protected by the Federal Confidentiality of Alcohol and Drug Abuse Patient Records regulations: The Federal rules restrict any use of the information to criminally investigate or prosecute any alcohol or drug abuse patient.[facility] FoundationIn the event this information is protected by the Federal Confidentiality of Alcohol and Drug Abuse Patient Records regulations: The Federal rules restrict any use of the information to criminally investigate or prosecute any alcohol or drug abuse patient.[facility] Reason for Visit (unrecogniz ed section and content) Reason Comments Consult Reason Comments Received Outside Medical Records Referra l Documents Care Teams (unrecognized sec tion and content) Continuity Person Relationship Specialty Start Date End Date Lon Miller MD [address] [id number] PCP - General Family Practice 11/21/11 Continuity Person Relationship Specialty Start Date End Date Lon Miller MD [address] [place] [address] PCP - General Family Practice 11/21/11 Continuity Person Relationship Specialty Start Date End Date Lon Miller MD [address] [place] [phone] PCP - General Family Practice 11/21/11 Continuity Person Relationship Specialty Start Date End Date Lon Miller MD [address] [place] [address] PCP - General Family Practice 11/21/11 Continuity Person Relationship Specialty Start Date End Date Lon Miller MD [address] [place] [address] PCP - General Family Practice 11/21/11 Continuity Person Relationship Specialty Start Date End Date Lon Miller MD [facility] [place] [address] PCP - General Family Practice 11/21/11 Team Status: Active Member Role Status Dates Lno Miller MD Primary Care Provider Active Team Status: Inactive Member Role Status Dates Lon Miller MD Primary Care Provider Active Mukesh Fam MD Attending Provider Active Team Status: Inactive Member Role Status Dates Lon Miller MD Primary Care Provider, Attending Lars lindsey Active Goals (unrecognized section and content) Goals may be documented in a n alternate section FOR RECORDS PERTAINING TO PATIENTS WHO ARE OR HAVE BEEN ENROLLED IN A CHEMICAL DEPENDENCY/SUBSTANCEABUSE PROGRAM, SOME INFORMATION MAY BE OMITTED. This clinical summary was aggregated from multiple sources. Caution should be exercised in using it in the provision of clinical care. This summary normalizes information from multiple sources, and as a consequence, information in this document may materially change the coding, format and clinical context of patient data. In addition, data may be omitted in some cases. CLINICAL DECISIONS SHOULD BE BASED ON THE PRIMARY CLINICAL RECORDS. [employer] provides no warranty or guarantee of the accuracy or completeness of information in this document.
--- NOTE | 2023-12-30 08:00 | MM_ITS ---
Patient Name: SYED CHAVEZ MR#: [id number] : 1950 Exam Date: 12/30/2023 Ordering Doctor: DR Cele Frost M.D. RADIOLOGY REPORT PROCEDURE: MM TOMOSYNTHESIS DIAGNOSTIC RT COMPARISON: MG MAMM DIAGNOSTIC 3D [place] CAD, 12/23/2022. INDICATIONS: History Of Malignant Neoplasm Of Breast, Mastodynia Calculator Name NCI Breast Cancer Risk Assessment Tool 5 Year Breast Cancer Risk n/a% Lifetime Breast Cancer Risk n/a% Personal Breast Cancer Yes, INFILTRATING DUCTAL CARCINOMA AGE 59 Personal Ovarian Cancer No Treatments CHEMOTHERAPY DECEMBER 2008, Left mastectomy Family Cancers None [facility]ATION: [facility] BREAST COMPOSITION: Extremely dense, which lowers the sensitivity of mammography. FINDINGS: DIAGNOSTIC CATEGORY 1--NEGATIVE. NO CHANGE FROM COMPARISON ASSESSMENT. RIGHT BREAST: No significant suspicious finding. Scattered benign-appearing calcifications are present. No abnormality to correspond to the patient's breast pain. Further evaluation should be based on clinical evaluation RECOMMENDATIONS: ROUTINE MAMMOGRAM AND CLINICAL EVALUATION IN 12 MONTHS. PLEASE NOTE: A NORMAL MAMMOGRAM DOES NOT EXCLUDE THE POSSIBILITY OF BREAST CANCER. A CLINICALLY SUSPICIOUS PALPABLE LUMP SHOULD BE BIOPSIED. Dictated by: Rene Bell MD on 12/30/2023 at 08:25 Approved by: Rene Bell MD on 12/30/2023 at 08:27
== END 2023-12-30 07:51 | disposition home or self-care (01) ==
LOC: MAMMO 07:50
PROVIDERS: PCP Family Medicine; Visit Provider Family Medicine
DX: N64.4 Mastodynia (principal); Z85.3 Personal history of malignant neoplasm of breast
CPT/HCPCS: 77065; G0279

== ENCOUNTER 2024-03-01 11:31 | Outpatient (OUT) | payer MEDICARE, OTHER, SELFPAY ==
[2024-03-01 12:04] LABS: Hematocrit 38.4 % (36.0-48.0); Hemoglobin 12.3 g/dL (12.0-16.0); Mean Corpuscular Hemoglobin 29.5 pg (26.7-34.0); Mean Corpuscular Volume 92.1 fL (81.0-99.0); Mean Platelet Volume 10.4 fL (9.5-13.5); Platelet Count 209 10^3/uL (150-450); Red Blood Count 4.17 10^6/uL (4.20-5.40); Red Cell Distribution Width 13.2 % (11.0-15.0); White Blood Count 9.1 10^3/uL (4.0-11.0)
[2024-03-01 12:33] LABS: Alanine Aminotransferase 37 U/L (14-59); Albumin Globulin Ratio 1.2; Albumin Level 3.8 g/dL (3.4-5.0); Alkaline Phosphatase 68 U/L (46-116); Aspartate Amino Transferase 21 U/L (15-37); BUN Creatinine Ratio 16.5; Bilirubin Total 0.6 mg/dL (0.2-1.0); Calcium 9.2 mg/dL (8.5-10.1); Chloride 105 mmol/L (98-107); Estimated GFR (African America 60 (>=60); Estimated GFR (Non-African Ame 49 (>=60); Globulin 3.1 g/dL; Glucose 89 mg/dL (74-106); Magnesium 2.3 mg/dL (1.8-2.4); Phosphorus 3.5 mg/dL (2.6-4.7); Sodium 141 mmol/L (136-145); Total Protein 6.9 g/dL (6.4-8.2)
[2024-03-01 14:13] LABS: Protein Creatinine Ratio Urine 0.17; Total Protein Urine Random 17.4 mg/dL (<=11.9)
== END 2024-03-01 11:32 | disposition home or self-care (01) ==
LOC: LAB 11:32
PROVIDERS: PCP Family Medicine; Visit Provider Internal Medicine Nephrology
DX: N18.31 Chronic kidney disease, stage 3a (principal); E26.9 Hyperaldosteronism, unspecified; I12.9 Hypertensive chronic kidney disease with stage 1 through stage 4 chronic kidney disease, or unspecified chronic kidney disease; E87.6 Hypokalemia; E83.42 Hypomagnesemia; N13.30 Unspecified hydronephrosis; E78.5 Hyperlipidemia, unspecified
CPT/HCPCS: 36415; 80053; 82306; 82570; 83735; 84100; 84156; 85027

== ENCOUNTER 2024-08-08 11:12 | Emergency (ER) | payer MEDICARE, OTHER, SELFPAY ==
[2024-08-08 11:31] VITALS: BP 130/82; PULSE 63; TEMP 36.4; O2SAT 100; BMI 17.8
[2024-08-08 12:20] LABS: Bilirubin Urine NEGATIVE (NEGATIVE); Blood Urine NEGATIVE (NEGATIVE); Clarity Urine CLEAR (CLEAR); Color Urine LT. YELLOW (YELLOW); Glucose Urine UA NEGATIVE (NEGATIVE); Ketones Urine NEGATIVE (NEGATIVE); Leukocyte Esterase Urine NEGATIVE (NEGATIVE); Nitrite Urine NEGATIVE (NEGATIVE); Protein Urine NEGATIVE (NEG/TRACE); Urine Microscopic Indicated NO; Urobilinogen Urine 0.2 EU/dL (0.2-1.0)
--- NOTE | 2024-08-08 12:58 | ED.GENADUL1 ---
HPI HPI - General Adult General Chief complaint: Abdominal Pain Stated complaint: UTI COMPLAINTS Time Seen by Provider: 08/08/24 12:55 Source: patient Mode of arrival: walk-in Limitations: no limitations History of Present Illness HPI narrative: Patient is a 73-year-old female who is presenting to the ER with chief complaint of left lower back pain that started on Thursday. Patient does not recall any heavy lifting, twisting or turning on , she was helping somebody move and did do few repetitions of bending over and picking up light boxes. Patient has no urinary frequency urgency or burning. No radiation of the pain down into her legs. No abdominal pain nausea or vomiting. Patient has taken nothing for pain, no ice, heat. Patient was going to come over the weekend, but then she can this morning because she did not think it was busy and patient have a lengthy way secondary to the high volume this morning. All systems are negative except as noted/marked. All systems reviewed and otherwise negative. Nurses note and vital signs reviewed and patient is not hypoxic. General: The patient appears well and in no apparent distress. Patient is resting comfortably on cart. Patient is not toxic, lethargic, or listless Skin: Warm, dry, no pallor noted. There is no rash noted. No petechiae, purpura. Head: Normocephalic, atraumatic Eye: Normal conjunctiva, no drainage, EOMI. PERRL Ears, Nose, Mouth, and Throat: oral mucosa is moist. Nares patent. Mouth without vesicles. Cardiovascular: Regular Rate and Rhythm, no murmur, gallop, rub Respiratory: Patient is in no distress, no accessory muscle use, lungs are clear to auscultation, no wheezing, rales or rhonchi Back: Mild tenderness to palpation to the left paralumbar soft tissue, no flank pain bilateral, the rest of her back is non-tender, no CVA tenderness bilaterally to percussion. No CT LS midline pain GI: no tenderness to palpation, no masses appreciated. No rebound, guarding, or rigidity noted. No distention Musculoskeletal: Patient has full range of motion of all of the extremities, no motor, sensory, or focal neurological deficits Neurological: A&O x4, normal speech Psychiatric: Cooperative Related Data Home Medications ?Medication ?Instructions ?Recorded ?Confirmed atorvastatin 80 mg tablet 80 mg PO DAILY 04/11/23 04/11/23 carvedilol 25 mg tablet 25 mg PO BID 04/11/23 04/11/23 hydralazine 50 mg tablet 50 mg PO BID 04/11/23 04/11/23 potassium chloride 20 mEq 20 meq PO QAM 04/11/23 04/11/23 tablet,extended release spironolactone 25 mg tablet 12.5 mg PO DAILY PRN blood pressure 04/11/23 04/11/23 Allergies Allergy/AdvReac Type Severity Reaction Status Date / Time Sulfa (Sulfonamide Allergy Severe Verified 04/11/23 17:50 Antibiotics) Opioid HPI Opioid Management Most Recent Opioid Data: Last Pain Scale 5 04/11/23 21:32 04/11/23 PFSH PFS Medical History (Updated 08/08/24 @ 13:30 by Mukesh Tellez MD) Breast cancer ?C50.919 - Malignant neoplasm of unspecified site of unspecified female breast (ICD-10) Hypertension ?I10 - Essential (primary) hypertension (ICD-10) Surgical History (Updated 04/11/23 @ 17:55 by Radha Mcfadden) History of hysterectomy ?Z90.710 - Acquired absence of both cervix and uterus (ICD-10) History of cholecystectomy ?Z90.49 - Acquired absence of other specified parts of digestive tract (ICD-10) Social History Little interest or pleasure in doing things: not at all Feeling down, depressed, or hopeless: not at all Exam Constitutional Vital Signs, click to edit/add: Last Vital Signs Temp 97.6 F 08/08/24 11:31 Pulse 63 08/08/24 11:31 Resp 16 08/08/24 11:31 BP 130/82 08/08/24 11:31 Pulse Ox 100 08/08/24 11:31 O2 Del Method Room Air 08/08/24 11:31 Course Vital Signs Vital signs: Vital Signs Temperature 97.6 F 08/08/24 11:31 Pulse Rate 63 08/08/24 11:31 Respiratory Rate 16 08/08/24 11:31 Blood Pressure 130/82 08/08/24 11:31 Pulse Oximetry 100 08/08/24 11:31 Oxygen Delivery Method Room Air 08/08/24 11:31 Temperature 97.6 F 08/08/24 11:31 Pulse Rate 63 08/08/24 11:31 Respiratory Rate 16 08/08/24 11:31 Blood Pressure 130/82 08/08/24 11:31 Pulse Oximetry 100 08/08/24 11:31 Oxygen Delivery Method Room Air 08/08/24 11:31 Medical Decision Making MDM Narrative Medical decision making narrative: Urine shows no acute findings, no blood, no signs of infection. Patient does not need any additional testing at this time and patient agrees. Patient was educated on using Tylenol Motrin, using ice, stretching, and will follow-up with PCP if no improvement. No questions at discharge. Lab Data Lab results reviewed: Yes I reviewed the patient's lab results Labs: Lab Results 08/08/24 Range/Units 11:36 Urine Color Lt. yellow (YELLOW) Urine Clarity Clear (CLEAR) Urine pH 6.0 (5.0-9.0) Ur Specific [place] 1.020 (1.005-1.025) Urine Protein Negative (NEG/TRACE) mg/dL Urine Glucose (UA) Negative (NEGATIVE) mg/dL Urine Ketones Negative (NEGATIVE) mg/dL Urine Occult Blood Negative (NEGATIVE) Urine Nitrite Negative (NEGATIVE) Urine Bilirubin Negative (NEGATIVE) Urine Urobilinogen 0.2 (0.2-1.0) EU/dL Ur Leukocyte Esterase Negative (NEGATIVE) Discharge Plan Discharge Chief Complaint: Abdominal Pain Clinical Impression: Left lumbar pain Patient Disposition: Home, Self-Care Time of Disposition Decision: 13:30 Condition: Fair Prescriptions / Home Meds: No Action atorvastatin 80 mg tablet 80 mg PO DAILY carvedilol 25 mg tablet 25 mg PO BID hydralazine 50 mg tablet 50 mg PO BID potassium chloride 20 mEq tablet extended release 20 meq PO QAM spironolactone 25 mg tablet 12.5 mg PO DAILY PRN (Reason: blood pressure) Print Language: Icelandic Instructions: Acute Low Back Pain (ED) Additional Instructions: Use ice 20 minutes on, 20 minutes off. Do not use heat. Alternate Tylenol and either Motrin, Advil, or ibuprofen every 4 hours to help with pain. Do not take Tylenol and [place] at the same time, you may actually take too much Tylenol at 1 setting or in 1 day. Maximum Tylenol dose of Tylenol is 3000 mg a day. Maximum dose of either Motrin, Advil, or ibuprofen is 2400 mg a day. Referrals: Cele Frost MD [Primary Care Provider] - 1 week Discharge Date/Time: 08/08/24 13:36
== END 2024-08-08 13:36 | disposition home or self-care (01) ==
PROVIDERS: Emergency Provider Emergency Medicine; PCP Family Medicine
DX: M54.50 Low back pain, unspecified (principal)
CPT/HCPCS: 81003; 99283

== ENCOUNTER 2024-09-29 10:55 | Outpatient (OUT) | payer MEDICARE, OTHER, SELFPAY ==
--- OUTSIDE RECORDS SUMMARY | 2024-09-29 11:07 | XMS_ITS | CCD ---
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 Role Phone PHYSICIAN, DEFAULT Admitting Unavailable PHYSICIAN, DEFAULT Attending Unavailable PHYSICIAN, DEFAULT Admitting Unavailable PHYSICIAN, DEFAULT Attending Unavailable PHYSICIAN, DEFAULT Admitting Unavailable PHYSICIAN, DEFAULT Attending Unavailable ELTAHAWY, EHAB A Admitting Unavailable ELTAHAWY, EHAB A Attending Unavailable LON MILLER Referring Unavailable LON MILLER Primary Care Unavailable PHYSICIAN, DEFAULT Admitting Unavailable PHYSICIAN, DEFAULT Attending Unavailable LON MILLER Primary Care Unavailable ALIGIO Admitting Unavailable ALICLAIRPOWERS Attending Unavailable LON MILLER Primary Care Unavailable STRUSPAGE Referring Unavailable Unknown, Pcp Unavailable Unavailable Ray, Analy Unavailable Unavailable Unknown, Referring Provider Unavailable Unav ailable Lon Miller Unavailable Lon Miller MD Primary Care Provider Christian Valdez Unavailable Loi Buenrostro Unavailable Vladimir [...] PAUL, DR LON Sarah Primary Care Unavailable MILLER, DR LON Sarah Attending Unavailable ZIEBER, DR BUCK Concepcion Consulting Unavailable MILLER, DR LON Sarah Admitting Unavailable MILLER, DR LON Sarah Consulting Unavailable MILLER, DR LON Sarah Primary Care Unavailable BAKHOUS, AZIZ Admitting Unavailable BAKHOUS, AZIZ Attending Unavailable BAKHOUS, AZIZ Consulting Unavailable ADELA ., MEDINA Admitting Unavailable ADELA ., MEDINA Attending Unavailable ADELA ., MEDINA Consulting Unavailable MILLER, DR LON Sarah Primary Care Unavailable SINTIA VO Admitting Unavailable ZIEBER, DR BUCK Concepcion Consulting Unavailable SINTIA VO Attending Unavailable MILLER, DR LON Sarah Primary Care Unavailable SINTIA VO Consulting Unavailable MISC, DR SALDANA Admitting Unavailable MISC, DR SALDANA Attending Unavailable MISC, DR SALDANA Consulting Unavailable MILLER, DR LON Sarah Primary Care Unavailable Mallorie Guardado Unavailable Mukesh Fam Unavailable MD Lon Miller Primary Care Provider MD Mukesh Fam Attending Provider [phone] Geneva Coats Unavailable LON MILLER Primary Care Physician MD Lon Miller Primary Care Provider MD Mukesh Fam Attending Provider MD Lon Miller Attending Provider IVETTE AIKEN Attending Unavailable CHAD BARILLAS Attending Unavailable Lon Miller MD Primary Care Provider GERMAN WORRELL Referring UnavailLON Hightower Primary Care Unavailable Lon Miller MD Primary Care Provider OLGA FARRAR Attending Unavailable LON MILLER Primary Care Unavailable MD Lon Miller Primary Care Provider THEA Ortega Attending Provider HESHAM CLIFTONIZ Referring Unavailable Flores Marie Attending Unavailable Sharad Asencio Referring Unavailable Sharad Asencio Attending Unavailable Sharad Asencio Admitting Unavailable Sharad Asencio Attending Unavailable NON STAFF Primary Care Provider Unavailanderson e NON STAFF Primary Care Unavailable Teresita Ortega Attending Unavailable Teresita Ortega Admitting Unavailable Lon Miller Primary Care Unavailable Teresita Ortega Attending Unavailable Teresita Ortega Admitting Unavailable Lon Miller Attending Unavailable Lon Miller Primary Care Unavailable Lon Miller Admitting Unavailable Teresita Ortega Admitting Unavailable Teresita Ortega Attending Unavailable Allergies Allergy Classification Reported Allergen(s) Allergy Type Date of Onset Reaction(s) Facility Sulfonamides (antibiotic) (4 sources) Sulfonamides (Antibiotic); Translations: [Sulfa Drugs] Drug Allergy Unknown [facility] (20 sources) Sulfonamides (Antibiotic); Translations: [SULFA (SULFONAMIDE ANTIBIOTICS)] Drug allergy (disorder) Vomiting [facility] Rep[facility] (20 sources) linaclotide; Translations: [LINACLOTIDE] Drug Allergy 022 Unknown [facility] (20 sources) Sulfonamides (Antibiotic) Drug Allergy Hives, Unknown [facility] (20 sources) Sulfamethoxazole / Trimethoprim Drug Allergy upset stomach [facility] [employer] Other (1 source) linaclotide Drug Allergy [facility] Repository (20 sources) buPROPion Drug Allergy Unknown, [facility] (15 sources) buPROPion Drug Allergy 013 Unknown Cursogram [facility] [employer] Other (15 sources) busPIRone Drug Allergy 021 Unknown [facility] [employer] Other (20 sources) Doxycycline Drug Allergy 013 Unknown, [facility] (20 sources) Lisinopril Drug Allergy Unknown, [facility] (20 sources) methylPREDNISolone Drug Allergy Unknown, Comment:Medro l dose pack [facility] (20 sources) zolpidem Drug Allergy Unknown, [facility] (4 sources) Sulfonamides (Antibiotic); Translations: [sulfa drugs] Drug allergy [facility] (15 sources) busPIRone; Translations: [buspirone] Drug Allergy Hives [facility] (15 sources) Sulfamethoxazole; Translations: [sulfamethoxazole] Drug Allergy upset stomach [facility] (15 sources) Trimethoprim; Translations: [trimethoprim] Drug Allergy upset stomach [facility] (1 source) ALLERGIES NOT ON FILE; Translations: [ALLERGIES NOT ON FILE] Propensity to adverse reactions (disorder) [facility] Repository (1 source) buPROPion Drug Allergy [facility] Rep[facility] (1 source) Doxycycline Drug Allergy [facility] (1 source) linaclotide Drug Allergy [facility] (1 source) Lisinopril Drug Allergy [facility] (1 source) methylPREDNISolone Drug Allergy [facility] (1 source) Sulfonamides (Antibiotic) Drug allergy (disorder) [facility] Rep[facility] (1 source) zolpidem Drug Allergy [facility] Repository Medications Current Medications Medication Drug Class(es) Dates Sig (Normalized) Sig (Original) acetaminophen 325 mg oral tablet (1 source) Start: 02-08-2021 take 2 tablets by mouth every six hours as needed acetaminophen 325 mg oral tablet ; 2 tab(s) orally every 6 hours, As needed, Pain - Mild (1-3) Quantity: 0 Refills: 0 Ordered: 08-Feb-2021 Katie Stuart Start: 08-Feb-2021 Generic Substitution Allowed aspirin 81 mg oral tablet (14 sources) Platelet Aggregation Inhibitor, Nonsteroidal Anti-inflammatory Drug [...] Atorvastatin Active 80 MG PO Daily July 03, 2021 12:00am Atorvastatin Anand cium TABS Quantity: 0 Refills: 0 Ordered: 05-Mar-2021 DO Active Comment on above: Take 80 mg by mouth once daily. carvedilol 25 mg oral tablet (20 sources) alpha-Adrenergic Rudy, beta-Adrenergic Rudy Start: 01-26-2019 take 25 mg by mouth twice daily Carvedilol Active 25 MG PO Twice daily July 03, 2021 12:00am Carvedilol TABS Quantity: 0 Refills: 0 Ordered: 05-Mar-2021 DO Active Comment on above: Take 25 mg by mouth twice daily. cefdinir 300 mg oral capsule (2 sources) Cephalosporin Antibacterial Start: take 1 capsule by mouth every twelve hours Cefdinir 300 MG 1 tablet Orally twice a day for 7 days Jul, Active chlorthalidone 25 mg oral tablet (1 source) Thiazide-like Diuretic Start: 019 take 1 tablet by mouth once daily chlorthalidone 25 mg Tab 25 mg = 1 tab(s), Oral, Daily, # 30 tab(s), Refills(s) 0 Start Date: 01/27/19 Status: Ordered cyanocobalamin, vitamin B-12, (VITAMIN B-12 ORAL) (1 source) cyanocobalamin, vitamin B-12, (VITAMIN B-12 ORAL) Take by mouth once daily. Active docusate sodium 100 mg oral capsule (1 [...] Orally once for 10 days Jan, Active hydrALAZINE hydrochloride 50 mg oral tablet (20 sources) Arteriolar Vasodilator Start: 12-16-2023 take 1 tablet by mouth twice daily at mealtime Hydralazine Active 1 TAB PO Twice daily December 16, 2023 1:00am [employer] tablet with food Orally Twice a day; Note: Source Status: Taking; Refills: 1; Qty: 180 Tablet; Provider: Etienne Gilbert Start: 10-01-2021 take 1 tablet by carlos a th three times daily at mealtime hydrALAZINE (APRESOLINE) [...] by mouth three times daily with meals. hydrOXYzine (7 sources) Antihistamine Start: take 1 tablet by mouth twice daily as needed for anxiety Hydroxyzine Hcl Active 0 .ROUTE .COMPLEX July 06, 2024 1:21pm TAKE 1 TABLET BY MOUTH TWICE A DAY NEEDED FOR ANXIETY Start: 06-07-2024 End: 07-06-2024 take 25 mg by mouth twice daily Hydroxyzine Hcl Discontinued 25 MG PO Twice daily June 07, 2024 12:00am July 06, 2024 1:21pm 24 hr isosorbide mononitrate 30 mg extended release oral tablet (3 sources) Nitrate Vasodilator Start: 01-27-2019 take 1 tablet by mouth once daily in the morning isosorbide mononitrate 30 mg ER Tab 30 mg = 1 tab(s), Oral, qAM, # 30 tab(s), Refills(s) 0, High blood pressure Start Date: 01/27/19 Status: Ordered iv contrast [...] in the CT contrast administration guidelines link. Magnesium (3 sources) Start: 09-08-2023 take 400 mg by mouth once daily magnesium magnesium, 400 mg, Oral, Daily Start Date: 09/08/23 Status: Ordered Start: 09-08-2023 magnesium magn esium, 400 mg Start Date: 09/08/23 Status: Ordered magnesium oxide 400 mg oral tablet (20 sources) Start: 04-19-2019 take 400 mg by mouth once daily Magnesium Oxide Active 400 MG PO Daily July 03, 2021 12:00am take 1 capsule by mouth once rubin ly magnesium oxide 400 mg magnesium capsule Take 1 capsule (400 mg) by mouth once daily. Active Comment on above: Take 1 tablet by carlos a th. mecobalamin 1 mg chewable tablet (11 sources) Start: 2023 take 1000 ug by mouth once daily Mecobalamin (Vitamin B12) Active 1000 MCG PO Daily March 08, 2024 12:00am methylPREDNISolone 4 mg oral tablet (1 source) Corticosteroid Start: 2021 methylPREDNISolone 4 MG as directed Orally for daily dose take half with breakfast, half with dinner for 6 days May, Active Miralax (1 source) Osmotic Laxative Start: 2023 take 1 g by mouth once daily MiraLax gm, Oral, Daily, Refill(s) 0 Start Date: 06/30/24 Status: Ordered Senna Leaves (2 sources) Start: 2023 Senna 8.6 mg oral tablet 17.2 mg, 2 tab(s), Oral, Once a day (at bedtime) for constipation, 100 tab(s), Refill(s) 0, [facility]/pharmacy #[id number], 173, cm, 06/30/24 10:17:00 EDT, Height/Length Dosing, 54.8, kg, 06/30/24 10:17:00 EDT, Weight Dosing Start Date: 06/30/24 Status: Ordered Sennosides (Senokot) 8.6 mg tablet (5 sources) Start: 2023 take 1 tablet by mouth once daily Sennosides (Senokot) 8.6 mg tablet Active 8.6 MG PO Daily June 07, 2024 12:00am sertraline 50 mg oral tablet (8 sources) [...] Take 25 mg by mouth once daily. spironolactone 25 mg oral tablet (20 sources) Aldosterone Antagonist Start: 12-16-19 End: 03-08-20 take 25 mg by mouth once daily Spironolactone Active 25 MG PO Daily March 08, 2024 10:26am Start: 05-29-2021 take 0.5 tablet by m outh once daily Spironolactone 25 MG 1/2 tablet Orally Once a day for 90 day(s) May, Not-Taking Start: 05-29-2021 Comment on above: Take 25 mg by mouth once daily. 1/2 tablet as needed Stool Softener with Laxative (3 sources) Start: 01-27-2019 take 1 tablet by mouth once daily Stool Softener with Laxative 1 tab(s), Oral, Daily Constipation, Refill(s) 0 Start Date: 01/27/19 Status: Ordered Start: 01-27-2019 Stool Softener with Laxative Refill(s) 0 Start Date: 01/27/19 Status: Ordered vitamin B12 (10 sources) Vitamin B12 Start: 09-08-2023 Vitamin B12 Or al, Daily, Refills(s) 0, Prophylaxis Start Date: 09/08/23 Status: Ordered Start: 09-08-2023 Vitamin B12 Re fills(s) 0 Start Date: 09/08/23 Status: Ordered Vitamin B12 Acti ve Completed/Discontinued Medications Medication Drug Class(es) Dates Sig (Normalized) Sig (Original) acetaminophen 325 mg / HYDROcodone bitartrate 5 mg oral tablet (16 sources) Opioid Agonist Start: 12-10-2018 End: 07-03-2021 take 1 tablet by mouth every four to six hours Hydrocodone-Aceta minophen ([place]) 5-325 mg Tablet Discontinued 1 TAB PO EVERY 4-6 HOURS 7 December 10, 2018 July 03, 2021 9:29am ALPRAZolam 0.25 mg oral tablet (7 sources) Benzodiazepine Start: 04-06-2018 ALPRAZolam (XANAX) 0.25 mg tablet amoxicillin 500 mg oral capsule (20 sources) Penicillin-class Antibacterial Start: 06-08-2024 End: 08-02-2024 take 500 mg by mouth twice daily Amoxicillin Discontinued 500 MG PO Twice daily 31 07June 08, 2024 12:00am August 02, 2024 4:19pm Start: 01-22-2024 End: 03-08-2024 take 500 mg by mouth three times daily Amoxicillin Discontinued 500 MG PO Three times daily 01 05January 22, 2024 12:00am March 08, 2024 10:25am Start: 08-11-2023 take [address] [facility] every twelve hours Amoxicillin 500 MG 1 tablet Orally Twice a day for 10 days Jul, Active Start: 06-23-2023 take 1 capsule by [facility] every twelve hours Amoxicillin 500 MG 1 capsule Orally Twice a day for 10 days Jun, Not-Taking Start: 04-29-2023 take 1 capsule by [facility] every twelve hours Amoxicillin 500 MG 1 capsule Orally Twice a day for 10 days Apr, Active Start: 01-12-2023 take 1 capsule by [facility] every eight hours Amoxicillin 500 MG 1 capsule Orally three times a day for 10 day(s) Jan, Active Start: 04-11-2022 take 1 capsule by [facility] every eight hours Amoxicillin 500 MG 1 capsule Orally three times a day for 10 day(s) Apr, Active {1 (ascorbic acid 7540 MG / polyethylene glycol 3350 98765 MG / potassium chloride 1200 MG / sodium ascorbate 08619 MG / sodium chloride 3200 MG Powder for Oral Solution) / 1 (polyethylene glycol 3350 226407 MG / potassium chloride 1000 MG / sodium chloride 2000 MG / sodium sulfate 9000 MG Powder for Oral Solution) } Pack [Plenvu] (3 sources) Osmotic Laxative, Vitamin C Start: 05-30-2021 Plenvu 140 GM dose 1 pouch a t 4pm, dose 2 pouch A & B at 11pm Orally BID for 1 days BIN:[id number]: CNRXGROUP:[id number] May, Not-Taking Start: 05-30-2021 Azithromycin (19 sources) Macrolide Antimicrobial Start: 04-11-2024 End: 05-21-2024 Azithromycin Discontinued 0 PO .COMPLEX April 11, 2024 12:00am May 21, 2024 1:42pm For 250 mg dose pack: take 500 mg today (day 1), then 250 mg for 4 days (days 2-5) PO Start: 04-11-2024 Azithromycin A ctive 0 PO .COMPLEX April 11, 2024 12:00am For 250 mg dose pack: take 500 mg today (day 1), then 250 mg for 4 days (days 2-5) PO Start: 06-12-2023 Azithromycin 2 50 MG 2 tablet on the first day, then 1 tablet daily for 4 days Orally Once a day for 5 day(s) Jun, Not-Taking Start: 11-27-2022 Azithromycin 2 50 MG as directed Orally 2 tabs po today, then 1 tab daily x 4 more days for 5 Nov, Not-Taking cephalexin 500 mg oral capsule (20 sources) Cephalosporin Antibacterial Start: 05-21-2024 End: 06-28-2024 take 500 mg by mouth every twelve hours Cephalexin Discontinued 500 MG PO Q12H 31 07May 21, 2024 12:00am June 28, 2024 12:24pm Start: 12-24-2023 End: 03-08-2024 take 500 mg by mouth three times daily Cephalexin Discontinued 500 MG PO Three times daily 01 05December 24, 2023 12:00am March 08, 2024 10:25am Start: 03-17-2023 take 1 capsule by mo uth every twelve hours Cephalexin 500 MG 1 capsule Orally twice a day for 10 Mar, Active docusate sodium 50 mg / sennosides, fci 8.6 mg oral tablet (20 sources) Start: 12-17-2021 take 2 tablets by mouth once daily at bedtime SENNA PLUS 8.6-50 mg per tablet Take 2 tablets by mouth daily at bedtime. 0 12/17/2021 Active Start: 05-30-2021 End: 03-08-2024 Sennosides-Docusate Sodium ( Senexon-S) 8.6-50 mg tablet Discontinued 1 TAB PO As Directed July 03, 2021 12:00am March 08, 2024 10:26am Comment on above: Take 2 tablets by mo [facility] daily at bedtime. FLUoxetine 10 mg oral [...] Take 10 mg by mouth once daily. fluticasone propionate 0.05 mg/actuat metered dose nasal spray (20 sources) Corticosteroid Start: End: take 2 spray(s) nasal route once daily Fluticasone Propionate Discontinued 2 SPRAY INTRANASAL Daily December 16, 2023 1:00am December 17, 2023 12:13pm [employer] sprays in each nostril Nasally Once a day; Note: Source Status: Taking; Refills: 0; Qty: 1 each; Provider: Debby Nobles Start: 07-20-2023 take 2 spray(s) nasa l route once daily Fluticasone Propionate 50 MCG/ACT 2 sprays in each nostril Nasally Once a day for 14 Jul, Active losartan potassium 25 mg oral tablet (20 sources) Angiotensin 2 Receptor Rudy Start: 07-03-2021 End: 03-08-2024 take 25 mg by mouth twice daily Losartan Discontinued 25 MG PO Twice daily July 03, 2021 12:00am March 08, 2024 10:26am Start: 01-27-2019 take 1 tablet by carlos [...] Take 50 mg by mouth once daily. nebivolol 5 mg oral tablet (7 sources) take 1 tablet by mouth once daily nebivolol (BYSTOLIC) 5 mg tablet Take 5 mg by mouth once daily. 0 Active Comment on above: Take 5 mg by mouth o nce daily. 24 hr nicotine 0.875 mg/hr transdermal system (7 sources) Cholinergic Nicotinic Agonist Start: 04-16-20 apply 1 dose transdermal route once daily NICODERM CQ 21 mg/24 hr APPLY 1 PATCH EVERY DAY DIRECTED 0 04/16/2017 Active Comment on above: APPLY 1 PATCH EVERY DAY DIRECTED penicillin v potassium 500 mg oral tablet (10 sources) Start: 04-04-20 End: 05-21-20 take 500 mg by mouth three times daily Penicillin V Potassium Discontinued 500 MG PO Three times daily 10 08April 04, 2024 12:00am May 21, 2024 1:43pm potassium chloride 20 meq oral tablet (20 sources) Start: 06-30-20 take 1 tablet by mouth once daily Potassium Chloride (Eqv-K-Tab) 20 mEq oral tablet, extended release 20 mEq = 1 tab(s), Oral, Daily, Refills(s) 0, Prophylaxis Start Date: 06/30/24 Status: Ordered Start: 12-16-2023 take 1 tablet by carlos a th once daily at mealtime Potassium Chloride Active 20 MEQ PO Daily December 16, 2023 1:00am [employer] tablet with food Orally Once a day; Note: Source Status: Taking; Provider: Etienne Gilbert Start: 05-02-2019 KLOR-DORI M20 2 0 mEq tablet Take 20 mEq by mouth twice daily. 1 05/02/2019 Active Start: 02-14-2015 Klor-Con M20 2 0 mEq, Oral, BID, Refills(s) 0, Prophylaxis Start Date: 02/14/15 Status: Ordered take 1 tablet by carlos a th once daily potassium chloride CR 20 mEq ER tablet Take 1 tablet (20 mEq) by mouth once daily. Do not crush or chew. Active take 1 tablet by carlos a [...] Active Probiotic Acidophilus - (3 sources) Probiotic Acidop hilus - as directed Orally Not-Taking promethazine hydrochloride 25 mg oral tablet (16 sources) Phenothiazine Start: 12-10-2018 End: 07-03-2021 take 25 mg by mouth every six hours Promethazine Discontinued 25 MG PO Q6H December 10, 2018 1:00am July 03, 2021 9:29am sodium chloride 1000 mg oral tablet (4 sources) Start: 01-27-2022 take 2 tablets by mouth three times daily sodium chloride 1 gram tab Take 2 tablets by mouth three times daily. 10 tablet 0 01/27/2022 Active Start: 01-17-2022 take 2 tablets by mo ut three times daily sodium chloride 1 gram tab Take 2 tablets by mouth three times daily. 10 tablet 0 01/17/2022 Active Comment on above: Take 2 tablets by mo uth three times daily. 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 ] 04-29-2021 Chronic Comment on above: SUBDURAL HEMORRHAGE Anxiety disorders (20 sources) Anxiety disorder, unspecified; Translations: [Generalized anxiety disorder] Onset: 6 Chronic Calculus of urinary tract (4 sources) Kidney stone; Translations: [Calculus of kidney] Onset: 3 Episodic Cancer of breast (7 sources) Malignant tumor of breast ; Translations: [Malignant neoplasm of unspecified site of unspecified female breast] Onset: 2 10-07-2021 Chronic Cancer of breast (20 sources) History of malignant neoplasm of breast; Translations: [Personal history of malignant neoplasm of breast] Onset: 2 Episodic Cardiac and circulatory congenital anomalies (10 sources) Congenital anomaly of cerebrovascular system; 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] Onset: 8 05-25-2018 Chronic Chronic kidney disease (20 sources) Chronic kidney disease; Translations: [Chronic kidney disease stage 3] 02-07-2021 Chronic Chronic obstructive pulmonary disease and bronchiectasis (15 sources) Bronchitis; Translations: [Bronchitis, not specified as acute or chronic] Episodic Conditions associated with dizziness or vertigo (4 sources) Dizziness and giddiness; Translations: [DIZZINESS AND GIDDINESS] Onset: 3 Episodic Coronary atherosclerosis and other heart disease (20 sources) Atherosclerotic heart disease of [place] coronary artery without angina pectoris; Translations: [Atherosclerosis of coronary artery without angina pectoris] Onset: 5 08-31-2023 Chronic Coronary atherosclerosis and other heart disease (1 source) Coronary angioplasty status; Translations: [CORONARY ANGIOPLASTY STATUS] Onset: 9 Episodic Deficiency and other anemia (15 sources) Nutritional anemia; Translations: [Nutritional anemia, unspecified] Episodic Disorders of lipid metabolism (20 sources) Hyperlipidemia, unspecified; Translations: [Pure hypercholesterolemia, unspecified] Onset: 9 Chronic Essential hypertension (20 sources) Essential (primary) hypertension; Translations: [Essential hypertension] Onset: 9 Chronic Fluid and electrolyte disorders (20 sources) Hypokalemia; Translations: [Hypokalemia] Onset: 9 Resolved: 2 Episodic Headache; including migraine (20 sources) Headache; Translations: [Headache, unspecified] 12-17-2023 Episodic Hypertension with complications and secondary hypertension (20 sources) Hypertensive heart disease without heart failure; Translations: [Hypertensive heart disease] Onset: 1 Resolved: 2 02-07-2021 Chronic Immunizations and screening for infectious disease (20 sources) Contact with and (suspected) exposure to other viral communicable diseases; Translations: [Contact with and (suspected) exposure to other viral communicable diseases] Onset: 1 Resolved: 1 Episodic Influenza (20 sources) Influenza due to Influenza A virus with upper respiratory signs; Translations: [Influenza due to other identified influenza virus with other respiratory manifestations] Onset: 7 Episodic Intracranial injury (3 sources) Hematoma of subdural space of neuraxis; Translations: [Subdural hemorrhage] Episodic Malaise and fatigue (20 sources) Other fatigue; Translations: [Fatigue] Onset: 3 10-20-2012 Episodic Miscellaneous mental health disorders (15 sources) 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; Translations: [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] Onset: 8 Chronic Mood disorders (1 source) Major depressive disorder, single episode, unspecified; Translations: [PATRICIA DEPRESS D/O SINGLE EPIS UNS] Onset: 2 Chronic Mycoses (15 sources) Candidiasis; Translations: [Candidiasis, unspecified] Episodic Nausea and vomiting (20 sources) Nausea and vomiting; Translations: [Nausea with vomiting, unspecified] Episodic Nonmalignant breast conditions (20 sources) Mastodynia; Translations: [Inflammatory disorder of breast] Onset: 3 Episodic Nutritional deficiencies (20 sources) Vitamin D deficiency; Translations: [Vitamin D deficiency, unspecified] Chronic Nutritional deficiencies (16 sources) Cobalamin deficiency; Translations: [Deficiency of other specified B group vitamins] 03-08-2024 Episodic Osteoarthritis (20 sources) Arthritis of hand; Translations: [Primary osteoarthritis, unspecified hand] Chronic Other and unspecified benign neoplasm (1 source) Adrenal adenoma; Translations: [Benign neoplasm of unspecified adrenal gland] Episodic Other and unspecified benign neoplasm (13 sources) Cavernous hemangioma; Translations: [Hemangioma unspecified site] 12-31-2023 Episodic Other and unspecified benign neoplasm (1 source) History of polyp of colon; Translations: [Personal history of colonic polyps] Onset: 4 Episodic Other circulatory disease (15 sources) Elevated blood-pressure reading without diagnosis of hypertension; Translations: [Elevated blood-pressure reading, without diagnosis of hypertension] Episodic Other circulatory disease (14 sources) History of subdural hematoma; Translations: [Personal history of other diseases of the circulatory system] 12-17-2023 Episodic Other circulatory disease (4 sources) Personal history of other diseases of the circulatory system; Translations: [Personal history of other diseases of circulatory system] 12-17-2023 Episodic Other connective tissue disease (15 sources) Ganglion of hand; Translations: [Ganglion, unspecified hand] Episodic Other diseases of bladder and urethra (18 sources) Overactive bladder; Translations: [Overactive bladder] 08-31-2023 Chronic Other diseases of kidney and ureters (6 sources) Unspecified hydronephrosis; Translations: [Hydronephrosis] Episodic Other diseases of kidney and ureters (16 sources) Hydronephrosis; Translations: [Unspecified hydronephrosis] Onset: 3 Episodic Other diseases of kidney and ureters (1 source) Acquired renal cyst without neoplastic change; Translations: [Cyst of kidney, acquired] Onset: 3 Episodic Other diseases of kidney and ureters (3 sources) Cyst of kidney 09-07-2023 Episodic Other endocrine disorders (20 sources) Hyperaldosteronism; Translations: [Hyperaldosteronism, unspecified] Onset: 9 Chronic Other endocrine disorders (13 sources) Hyperaldosteronism, unspecified; Translations: [Hyperaldosteronism, unspecified] Onset: 2 Resolved: 2 Chronic Other gastrointestinal disorders (20 sources) Chronic idiopathic constipation; Translations: [Chronic idiopathic constipation] Chronic Other gastrointestinal disorders (15 sources) Irritable bowel syndrome characterized by constipation; Translations: [Irritable bowel syndrome with constipation] Chronic Other gastrointestinal disorders (20 sources) Constipation; Translations: [Constipation, unspecified] Onset: 5 07-03-2021 Episodic Other gastrointestinal disorders (4 sources) Constipation, unspecified; Translations: [Constipation, unspecified] 06-07-2024 Episodic Other gastrointestinal disorders (1 source) Disorder of intestine; Translations: [Other specified diseases of intestine] Onset: 4 Episodic Other gastrointestinal disorders (2 sources) Melanosis coli 06-30-2024 Episodic Other injuries and conditions due to external causes (15 sources) History of fall; Translations: [History of falling] Episodic Other nutritional; endocrine; and metabolic disorders (8 sources) Hypomagnesemia; Translations: [Disorders of magnesium metabolism] Onset: 9 Chronic Other nutritional; endocrine; and metabolic disorders (20 sources) Hypomagnesemia; Translations: [Hypomagnesemia] 01-23-2024 Chronic Other nutritional; endocrine; and metabolic disorders (15 sources) Body mass index less than 20; Translations: [Body mass index (BMI) 19.9 or less, adult] Episodic Other upper respiratory disease (18 sources) Allergic rhinitis; Translations: [Allergic rhinitis, unspecified] Onset: 7 06-28-2024 Chronic Other upper respiratory disease (3 sources) Allergic rhinitis, unspecified; Translations: [Allergic rhinitis, cause unspecified] 06-28-2024 Chronic Other upper respiratory infections (15 sources) Chronic sinusitis; Translations: [Chronic sinusitis, unspecified] Chronic Other upper respiratory infections (20 sources) Acute pharyngitis, unspecified; Translations: [Streptococcal pharyngitis] Onset: 5 Resolved: 2 Episodic Otitis media and related conditions (20 sources) Other specified disorders of Eustachian tube, bilateral; Translations: [Unspecified nonsuppurative otitis media, right ear] Onset: 6 Resolved: 2 Episodic Peripheral and visceral atherosclerosis (14 sources) Insufficiency of mesenteric artery; 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] Chronic Residual codes; unclassified (15 sources) Chill; Translations: [Chills (without fever)] Episodic Residual codes; unclassified (15 sources) Tobacco user; Translations: [Tobacco use] Episodic Residual codes; unclassified (15 sources) Insomnia; Translations: [Insomnia, unspecified] Episodic Residual codes; unclassified (18 sources) Family history of cancer of colon; Translations: [Family history of malignant neoplasm of digestive organs] 07-03-2021 Episodic Residual codes; unclassified (14 sources) Family history of stroke; Translations: [Family history of stroke] 12-17-2023 Episodic Residual codes; unclassified (4 sources) Family history of stroke; Translations: [Family history of other neurological diseases] 12-17-2023 Episodic Residual codes; unclassified (4 sources) Family history of malignant neoplasm of digestive organs; Translations: [Family history of malignant neoplasm of gastrointestinal tract] 06-07-2024 Episodic Residual codes; unclassified (1 source) Family history of malignant neoplasm of digestive organ; Translations: [Family history of malignant neoplasm of digestive organs] Onset: 4 Episodic Residual codes; unclassified (1 source) Other specified postprocedural states; Translations: [OTHER SPECIFIED POSTPROCEDURAL STATES] Onset: 9 Spondylosis; intervertebral disc disorders; other back problems (15 sources) Lumbosacral spondylosis without myelopathy; Translations: [Spondylosis without myelopathy or radiculopathy, lumbar region] Onset: 9 Chronic Spondylosis; intervertebral disc disorders; other back problems (20 sources) Spasm of back muscles; Translations: [Muscle spasm of back] Onset: 7 Episodic Substance-related disorders (13 sources) Nicotine dependence, cigarettes, uncomplicated; Translations: [Smoker] Onset: 9 Chronic Comment on above: Added secondary to d ocumentation in Social History. Syncope (19 sources) Syncope and collapse; Translations: [Syncope and collapse] Onset: 9 Episodic Unclassified (2 sources) ABN STRESS Onset: 9 Unclassified (1 source) FUV; BILATERAL SDH'S 02-08-2021 [...] loss of consciousness status unknown, initial encounter] Viral infection (15 sources) Disease caused by 2019-nCoV; Translations: [COVID-19] Past or Other Problems Problem Classification Problem Date Documented Date Episodic/Chronic Acute bronchitis (20 sources) Acute bronchitis; Translations: [Acute bronchitis] Onset: 12-31-2017 Episodic Chronic kidney disease (12 sources) Chronic kidney disease; Translations: [Chronic kidney disease, stage 3a] Onset: 10-01-2021 Resolved: 12-10-2021 Genitourinary symptoms and ill-defined conditions (20 sources) Dysuria; Translations: [Frequency of micturition] Onset: 09-14-2014 Episodic Noninfectious gastroenteritis (15 sources) Non-infective enteritis and colitis; Translations: [Noninfective gastroenteritis and colitis, unspecified] Onset: 06-24-2017 Episodic Nonspecific chest pain (8 sources) Chest pain, unspecified; Translations: [Chest pain] Onset: 02-12-2015 02-12-2015 Episodic Other aftercare (1 source) 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; Translations: [OTH SENIOR CARE CURRENT DRUG THERAPY] Onset: 09-01-2022 Episodic Other lower respiratory disease (1 source) Shortness of breath; Translations: [SHORTNESS OF BREATH] Onset: 10-19-2018 Episodic Other screening for suspected conditions (not mental disorders or infectious disease) (20 sources) Abnormal result of other cardiovascular function study; Translations: [Cardiovascular stress test abnormal] Onset: 02-12-2015 02-12-2015 Episodic Residual codes; unclassified (7 sources) Amnesia; [...] BREAST AND NIPPLE] Onset: 09-01-2022 Episodic Unclassified (3 sources) Malignant neoplasm of breast in remission 08-31-2023 Results Test Name Value Interpretation Reference Range Facility Throat Cultureon 08-02-2024 Throat culture Respiratory Results Moderate Normal Respiratory Yolanda 2 Days PERFORMED BY: [facility] [address] [place] [address] PATHOLOGIST PARTS DEPARTMENT MANAGER ANTWON BETANCUR M.D. Normal [facility] Comment on above: Performed By: #### C NE #### [place] [id number] [facility] Reminderson 07-19-2024 Reminders Reminders From: Bessie John To: [facility] - Reminders/Recalls; Sent: 07/19/2024 15:10:14 EDT Show up: 06/12/2027 15:09:00 EDT Subject: Ambulatory Reminder- colonoscopy 3-5 year recall Due Date/Time: 07/12/2027 15:09:00 EDT Reminder/Recall Colonoscopy- 07/12/2024 Dr Asencio 3-[address] [facility] Result Letter Officeon 07-19 Result Letter Office Result Letter Offic e July 19, 2024 [facility] [address] [place] [address] : 1950 Below is a summary of the results of your recent colonoscopy. COLONOSCOPY WITH POLYP REMOVAL OR BIOPSY Type of polyp tubular adenoma - not cancer but can become cancer if not removed. Additional colonoscopies will be necessary to monitor your condition and assure that new polyps have not developed. Based on your results we are recommending you repeat the procedure in 3 years You will be placed in our reminder system and will receive a reminder letter prior to your next due date. [facility] [phone] [facility] Surgical Pathology Reporton 07-14-2024 Surgical Pathology Report [facility] [address] [place] [address]- Surgical Pathology Report Collected Date/Time: 07/12/2024 08:28 EDT Pathologist: David MARCUS PhD, Shayy Nuñez Received Date/Time: 07/12/2024 10:13 EDT Elif MARCUS, Sharad Asencio MD, Sharad Mo Surgical Pathology Report - 07/14/2024 13:22 EDT - Auth (Verified) Final Diagnosis A: POLYPS X2, TRANSVERSE COLON, POLYPECTOMY: - TUBULAR ADENOMAS. B: POLYP, RECTUM, POLYPECTOMY: - HYPERPLASTIC POLYP. (Electronic Signature) Shayy Hernandez MD PhD 07/14/2024 13:22 Clinical Information Hx colon polyps Pre-Op Diagnosis: Hx colon polyps Procedure: Colonoscopy Post-Op Diagnosis: 1. Three colon polyps -removed 2. Internal hemorrhoids Specimen(s) Received A.Transverse colon polyps x2 B.Rectal polyp Gross Description A: Received in formalin labeled with patient name, number, and transverse colon polyps x2 are multiple fragments of peter/pink tissue ranging from less than 0.1 cm up to 0.6 cm measuring in aggregate 1 x 1 x 0.1 cm. Specimen is entirely submitted in one cassette. B: Received in formalin labeled with patient name, number, and rectal polyp are two fragments of peter/pink tissue measuring 0.3 and 0.1 cm long. Specimen is entirely submitted in one cassette. (DC) DC:[facility] Microscopic Description Microscopic examination performed unless gross only specified. Normal [facility] Comment on above: Performed By: #### [id number] #### [facility] [address] [place] [address] Main OR Intraoperative Recor don 07-13-2024 Main OR Intraoperative Record Main OR Intraoperative Record IntraOp Document Type FT Summary Primary Physician: Sharad Asencio MD Finalized Date/Time: 07/13/24 12:40:21 Pt. Name: SYED MICHELLE/Sex: 1950 Female Med Rec #: [id number] Physician: Sharad Asencio MD Financial #: [id number] Pt. Type: O Room/Bed: / Admit/Disch: 07/12/24 06:53:39 - 07/12/24 23:59:59 Institution: Case Times FT Entry 1 Patient Times In Room 07/12/24 08:18:00 Out Room 07/12/24 08:41:00 Procedure Times Start 07/12/24 08:24:00 Stop 07/12/24 08:39:00 Anesthesia Times Start 07/12/24 08:18:00 Stop 07/12/24 08:41:00 Time at [place] 07/12/24 08:28:00 Last Modified By: Cheryl Gillespie RN 07/12/24 08:41:18 General Comments: 07/13/24 Chart opened for charge review per Felipa Ojeda RN. [place] Case Attendance FT Entry 1 Entry 2 Entry 3 Case Attendee Cristobal Holman CRNA, RN, George Isaacs Role Performed Anesthesiologist Rn Medicare - Primary Scrub - Primary Windscreen Fitter Time In 07/12/24 08:18:00 07/12/24 08:18:00 07/12/24 08:18:00 Time Out 07/12/24 08:41:00 07/12/24 08:41:00 07/12/24 08:41:00 Procedure COLONOSCOPY(.) COLONOSCOPY(.) COLONOSCOPY(.) Comments Dr. Durán supervising procedure. Last Modified By: Verna GALVAN, Cheryl Gillespie RN, Cheryl Munoz RN 07/12/24 08:41:19 07/12/24 08:41:19 07/12/24 08:41:19 Entry 4 Case Attendee Elif MARCUS, Sharad Lynn Role Performed Surgeon - Primary Time In 07/12/24 08:18:00 Time Out 07/12/24 08:41:00 Procedure COLONOSCOPY(.) Comments Last Modified By: Cheryl Gillespie RN 07/12/24 08:41:19 Perioperative Protocols FT Pre-Care Text: Implements protective measures prior to operative or invasive procedure, confirms identity before the operative or invasive procedure, verifies operative procedure, surgical site, and laterality Entry 1 Procedure(s) COLONOSCOPY(.) Patient Identity Birthday, ID Band Verified (select at Check, Patient least 2): Participation Consents / H and P Anesthesia Consent, Operative Site N/A Verified H&P, Surgery/Procedure Marking Verified Consent Surgical Site No Laterality Verified n/a Verified Procedure Verified Yes Correct Patient Yes Position Verified Availability Equipment, Medication Prep Dry n/a Verified (If Applicable) PreOp Antibiotic No Time Out Cristobal Holman CRNA, Given Participants Verna GALVAN, Sam Zavala Micala E, Elif MARCUS, Sharad Lynn Time Out Complete 07/12/24 08:21:00 Outcomes Met? Yes Last Modified By: Cheryl Gillespie RN 07/12/24 08:23:20 Post-Care Text: The patient is free from signs and symptoms of injury caused by extraneous objects Allergy Information FT Pre-Care Text: Verifies allergies Entry 1 Allergies Reviewed? Yes Allergies Reviewed Self/Patient With Outcomes Met? Yes Last Modified By: Cheryl Gillespie RN 07/12/24 08:23:28 Post-Care Text: The patient received appropriate medication(s) safely administered during the perioperative period Surgical Procedures FT Entry 1 Procedure Description Procedure COLONOSCOPY Modifiers . Surgeon Description Colonoscopy with transverse colon polypectomy x2 and rectal polypectomy. Primary Procedure Yes Primary Surgeon Elif MARCUS, Sharad Lynn Start 07/12/24 08:24:00 Stop 07/12/24 08:39:00 Anesthesia Type General Surgical Service Gastroenterology Wound Class 2 - Clean-Contaminated Last Modified By: Cheryl Gillespie RN 07/12/24 08:40:21 General Case Data FT Pre-Care Text: Classifies surgical wound, implements aseptic technique, initiates traffic control Entry 1 Case Information OR ENDO 1 FT Case Level Level 2 Wound Class 2 - Clean-Contaminated Specialty Gastroenterology ASA Class 3 Preop Diagnosis HISTORY OF COLON POLYPS Postop Same As Preop No Postop Diagnosis Transverse colon polyps Outcomes Met? Yes x2, rectal polyp and internal hemorrhoids. Last Modified By: Cheryl Gillespie RN 07/12/24 08:40:35 Post-Care Text: The patient is free from signs and symptoms of infection Skin Assessment (Pre Procedure) FT Pre-Care Text: Implements protective measures to prevent skin/ tissue injury due to thermal or mechanical sources Evaluates for signs and symptoms of physical injury to skin and tissue Entry 1 Skin Integrity Intact, [place], Warm, & Skin Abnormality No Dry Outcomes Met? Yes Last Modified By: Cheryl Gillespie RN 07/12/24 08:23:58 Post-Care Text: The patient is free from signs and symptoms of injury caused by extraneous objects Patient Positioning FT Pre-Care Text: Identifies physical alterations that require additional precautions for procedure-specific positioning, verifies presence of prosthetics or corrective devices, positions the patient, evaluates the patient for signs and symptoms of injury as a result of positioning Entry 1 Procedure COLONOSCOPY(.) Body Position Lateral, right side up Feet Uncrossed? Yes Left Arm Position Restin (more content not included)... Normal [facility] Discharge Instructionson Discharge Instructions Discharge Instructions SYED MICHELLE :1950 Visit Date:07/12/2024 Inpatient Discharge Instructions Your Care Team Admitting Physician - Sharad Asencio MD Referring Physician - Sharad Asencio MD Reason for Your Visit HISTORY OF COLON POLYPS Your Diagnosis Hemorrhoids, internal Polyp of transverse colon Rectal polyp Tests Performed Pathology Tissue Exam -- Results Pending -- Please visit your patient portal for your results or contact your primary care physician. This Is Your Medications List Non-Formulary Medication (magnesium) atorvastatin carvedilol cyanocobalamin (Vitamin B12) docusate-senna (Stool Softener with Laxative) hydrALAZINE (hydrALAZINE 50 mg Tab) isosorbide mononitrate (isosorbide mononitrate 30 mg ER Tab) potassium chloride (Potassium Chloride (Eqv-K-Tab) 20 mEq oral tablet, extended release) senna (Senna 8.6 mg oral tablet) spironolactone (spironolactone 25 mg Tab) Procedure History Colonoscopy (07/12/2024), Cholecystectomy, Colonoscope, Hysterectomy, Mastectomy. What to do next Instructions From Your Doctor No qualifying data available. New Follow Up Appointments after Discharge Follow Up with Elif MARCUS, Sharad Lynn, [facility], [facility] When: Comments: Call for any problems. The office will reach out in about one week from procedure date. Where: Medications What How Much When Why Instructions Next Dose Unchanged atorvastatin 80 Milligram By Mouth Every day Unchanged carvedilol 25 Milligram By Mouth 2 times a day Unchanged cyanocobalamin (Vitamin B12) By Mouth Every day Unchanged docusate-senna (Stool Softener with Laxative) 1 Tablets By Mouth Every day as needed for Constipation Unchanged hydrALAZINE (hydrALAZINE 50 mg Tab) 1 Tablets By Mouth Unchanged isosorbide mononitrate (isosorbide mononitrate 30 mg ER Tab) 1 Tablets By Mouth Once a day (in the morning) Unchanged Non-Formulary Medication (magnesium) 400 Milligram By Mouth Every day Unchanged potassium chloride (Potassium Chloride (Eqv-K-Tab) 20 mEq oral tablet, extended release) 1 Tablets By Mouth Every day Unchanged senna (Senna 8.6 mg oral tablet) 2 Tablets By Mouth Once a day (at bedtime) as needed for for constipation History of colon polyps Melanosis coli Unchanged spironolactone (spironolactone 25 mg Tab) 1 Tablets By Mouth Every day Test Results No qualifying data available. Allergies sulfa drugs Problems Ongoing - Any problem that you are currently receiving treatment for. Family hx of colon cancer Hydronephrosis Kidney stones Melanosis coli Renal cyst Smoker Historical - Any problem that you are no longer receiving treatment for. Anxiety Breast cancer in remission Coronary artery disease Hypercholesterolemia Hyperlipidemia Hypertension Hypokalemia Overactive bladder Subdural hematoma [employer] Hemorrhoids Hemorrhoids are swollen veins that may form: ? In the butt (rectum). These are called internal hemorrhoids. ? Around the opening of the butt (anus). These are called external hemorrhoids. Most hemorrhoids do not cause very bad problems. They often get better with changes to your lifestyle and what you eat. What are the causes? ? Having trouble pooping (constipation) or watery poop (diarrhea). ? Pushing too hard when you poop. ? . ? Being very overweight (obese). ? Sitting for too long. ? Riding a bike for a long time. ? Heavy lifting or other things that take a lot of effort. ? Anal sex. What are the signs or symptoms? ? Pain. ? Itching or soreness in the butt. ? Bleeding from the butt. ? Leaking poop. ? Swelling. ? One or more lumps around the opening of your butt. How is this treated? In most cases, hemorrhoids can be treated at home. You may be told to: ? Change what you eat. ? Make changes to your lifestyle. If these treatments do not help, you may need to have a procedure done. Your doctor may need to: ? Place rubber bands at the bottom of the hemorrhoids to make them fall off. ? Put medicine into the hemorrhoids to shrink them. ? Shine a type of light on the hemorrhoids to cause them to fall off. ? Do surgery to get rid of the hemorrhoids. Follow these instructions at home: Medicines ? Take [id number] and prescription medicines only as told by your doctor. ? Use creams with medicine in them or medicines that you put in your butt as told by your doctor. Eating and drinking ? Eat foods that have a lot of fiber in them. These include whole grains, beans, nuts, fruits, and vegetables. ? Ask your doctor about taking products that have fiber added to them (fibersupplements). ? Take in less fat. You can do this by: ? Eating low-fat dairy products. ? Eating less red meat. ? Staying away from processed foods. ? Drink enough fluid to keep (more content not included)... Normal [facility] Comment on above: Result Comment: Elec tronically Signed By: Maine Marcos I\.br\Date and Time Signed: 07/12/24 08:51 EDT H&P Updateon 07-12-2024 H&P Update H&P Update Patient: SYED MICHELLE Age: 73 years Sex: Female : 1950 Associated Diagnoses: None Author: Sharad Asencio MD Preoperative Information Chief compliant/Indication for procedure: History of colon polyps Chief Complaint as above Review of Systems All systems reviewed, negative except as mentioned above Physical Examination Vital Signs (last 24 hrs) Last Charted Temp Temporal L 36 DegC (JUL 12 07:20) Heart Rate Monitored 73 bpm (JUL 12 08:40) SBP 125 mmHg (JUL 12 08:36) DBP 67 mmHg (JUL 12 08:36) Weight 54.8 kg (JUL 12 07:00) General: in Nad Abdomen: Soft, NTND Impression and Plan Diagnosis: History of colon polyps -colonoscopy [facility] Main OR PACU II Recordon Main OR PACU II Record Main OR PACU II Record PACU Phase II Document Type FT Summary Primary Physician: Sharad Asencio MD Finalized Date/Time: 07/12/24 09:17:55 Pt. Name: SYED MICHELLE /Sex: 1950 Female Med Rec #: [id number] Physician: Sharad Asencio MD Financial #: [id number] Pt. Type: O Room/Bed: / Admit/Disch: 07/12/24 06:53:39 - Institution: Case Times PACU II FT Pre-Care Text: Identifies barriers to communication and implements measures to provide psychological support and determines knowledge level Develops individualized plan of care, and ensures continuity of care Maintains patient's dignity and privacy, and maintains patient confidentiality Identifies and reports philosophical, cultural, and spiritual beliefs and values Identifies individual values and wishes concerning care administers prescribed antibiotic therapy and immunizing agents as ordered, Evaluates postoperative tissue perfusion Implements thermoregulation measures, and monitors body temperature Evaluates postoperative respiratory status Evaluates postoperative cardiac status Evaluates postoperative neurological status Assesses pain control, collaborated in initiating patient-controlled analgesia and implements alternative methods of pain control Verifies allergies, administers prescribed medications and solutions, evaluates response to medications Entry 1 In PACU II 07/12/24 08:43:00 Discharge from PACU 07/12/24 09:03:00 II Outcomes Met? Yes Last Modified By: Maine Marcos I 07/12/24 09:17:49 Post-Care Text: The patient demonstrates knowledge of the expected response to the operative or invasive procedure The patient's care is consistent with the individualized perioperative plan of care The patient's right to privacy is maintained The patient's value system, lifestyle, ethnicity, and culture are considered, respected, and incorporated into the perioperative plan of care The patient participates in decisions affecting his or her perioperative plan of care. The patient is free from signs and symptoms of infection The patient has wound/tissue perfusion consistent with or improved from baseline levels established preoperatively The patient is at or returning to normothermia at the conclusion of the immediate postoperative period The patient's respiratory function is consistent with or improved from baseline levels established preoperatively The patient's cardiovascular status is consistent with or improved from baseline levels established preoperatively The patient's neurological status is consistent with or improved from baseline levels established preoperatively The patient demonstrates and/or reports adequate pain control throughout the perioperative period The patient received appropriate medication(s), safely administered during the perioperative period Finalized By: Maine Marcos I Document Signatures Signed By: Maine Marcos I 07/12/24 09:17 [facility] Main OR Preoperative Recordo n 07-12-2024 Main OR Preoperative Record Main OR Preoperative Record Holding Area Document Type FT Summary Primary Physician: Sharad Asencio MD Finalized Date/Time: 07/12/24 07:28:56 Pt. Name: SYED MICHELLE /Sex: 1950 Female Med Rec #: [id number] Physician: Sharad Asencio MD Financial #: [id number] Pt. Type: O Room/Bed: / Admit/Disch: 07/12/24 06:53:39 - Institution: Case Times Holding FT Pre-Care Text: Verifies consent for planned procedure, identifies individual values and wishes concerning care, includes family members in perioperative teaching Secures patient's records' belongings, and valuables, maintains patient's dignity and privacy, and maintains patient confidentiality Entry 1 In Holding 07/12/24 07:06:00 Outcomes Met? Yes Last Modified By: Cheryl Gillespie RN 07/12/24 07:27:42 Post-Care Text: The patient participates in decisions affecting his or her perioperative plan of care The patient's right to privacy is maintained Surgery Checklist FT Entry 1 Patient Birthday, ID Band Procedure History and Physical, Identification: Check, Patient Verification: Surgical Consent, With Participation Patient NPO after Midnight: Yes Results Reviewed Green Comments: Personal Items: Dentures, Glasses Personal Items Glassess, dentures Comment: Limitations: Vision Complaints of Pain: No Pain Comment: Denies Operative Site n/a Marking: Availability Equipment Verified: Does Patient Smoke Yes If Yes to Smoking. 1/4ppd Cigars or Cigarettes. How much per day? Patient states Yes Comment - Adult Spouse postop adult Supervision supervision available Case Cancelled in No Holding Area see comments below for reason Last Modified By: Cheryl Gillespie RN 07/12/24 07:28:51 General Comments: Pt completed prep at 0330 and remained NPO since/JILLIAN,RN Finalized By: Cheryl Gillespie RN Document Signatures Signed By: Cheryl Gillespie RN 07/12/24 07:[address] [facility] Operative Reporton 4 Operative Report Operative Report Patient: SYED MICHELLE Age: 73 years Sex: Female : 1950 Associated Diagnoses: None Author: Sharad Asencio MD Pre-Procedure Procedure Date 07/12/2024 08:45:00 . Procedure Type: Colonoscopy with removal of tumor(s), polyp(s), or other lesion(s) by cold snare technique. Procedure provider Performed by Sharad Asencio MD. Current history and physical Documented on chart. Colonoscope ([id number]). Mastectomy (8634890622). Hysterectomy (537525174). Cholecystectomy (41061471).. Past Medical History Resolved Hypercholesterolemia (27522145): Resolved. Anxiety (41631848): Resolved. Hypertension (04790203): Resolved. Overactive bladder (5929483319): Resolved. Coronary artery disease (1844589275): Resolved. Hypokalemia (23647507): Resolved. Subdural hematoma (419286108): Resolved. Hyperlipidemia (82715556): Resolved. Breast cancer in remission (2714124053): Resolved.. Family History Primary malignant neoplasm of colon Sister Diabetes mellitus Brother Hypertension Father Brother Sister Heart disease Brother Stroke Father Mental illness Mother Cancer Brother Sister Colon cancer stage 1 Mother High cholesterol Brother . Procedure History Colonoscope ([id number]). Mastectomy (9228014785). Hysterectomy (498542331). Cholecystectomy (06536409).. Colorectal neoplasm risk assessment High risk Previous history of polyps. . Informed Consent After discussing the rationale, risks and benefits, and alternatives to this procedure, the patient provided signed consent for the procedure. Pre-procedure diagnosis: History of colon polyps. Medications (Selected) Inpatient Medications Ordered Lactated Ringers IV Genoveva 1000 mL 1,000 mL: 1,000 mL, IV, 100 mL/hr, Routine, Start date 07/12/24 7:22:00 EDT, 10 hour(s), Total volume (mL): 1,000, 54.8 kg, 1.62, m2 Sodium Chloride 0.9% IV Genoveva 1000 mL 1,000 mL: 1,000 mL, IV, 20 mL/hr, Routine, Start date 07/12/24 7:00:00 EDT, 50 hour(s), Total volume (mL): 1,000, 54.8 kg, 1.62, m2 Prescriptions Prescribed Senna 8.6 mg oral tablet: 17.2 mg, 2 tab(s), Oral, Once a day (at bedtime) for constipation, 100 tab(s), Refill(s) 0, [facility]/pharmacy #[id number], 173, cm, 06/30/24 10:17:00 EDT, Height/Length Dosing, 54.8, kg, 06/30/24 10:17:00 EDT, Weight Dosing Documented Medications Documented Potassium Chloride (Eqv-K-Tab) 20 mEq oral tablet, extended release: 20 mEq = 1 tab(s), Oral, Daily, Refills(s) 0, Prophylaxis Stool Softener with Laxative: 1 tab(s), Oral, Daily Constipation, Refill(s) 0 Vitamin B12: Oral, Daily, Refills(s) 0, Prophylaxis atorvastatin: 80 mg, Oral, Daily, Refills(s) 0, High cholesterol carvedilol: 25 mg, Oral, BID, Refills(s) 0, High blood pressure hydrALAZINE 50 mg Tab: 50 mg = 1 tab(s), Oral, Refills(s) 0, High blood pressure isosorbide mononitrate 30 mg ER Tab: 30 mg = 1 tab(s), Oral, qAM, # 30 tab(s), Refills(s) 0, High blood pressure magnesium: magnesium, 400 mg, Oral, Daily spironolactone 25 mg Tab: 25 mg = 1 tab(s), Oral, Daily, Refills(s) 0, diuretic/water pill Anticoagulant/antiplatele t None. ASA Classification: Class II. . Monitoring: See anesthesia record. . Procedure The procedure was performed in the hospital. See anesthesia record for sedation given during procedure. The patient was positioned starting in the left lateral decubitus position. Endoscope type used was an adult-size. The endoscope was lubricated then introduced through the anus. The scope was advanced to the cecum. No difficulties encountered during the procedure. The bowel preparation quality was good and was adequate (see polyps greater than or equal to 6 millimeters). The patient tolerated the procedure well. Time to Cecum: 4 min Withdrawal time 11 min Last colonoscopy: 5 years ago Findings 1. Normal rectal exam 2. Five mm sessile polyp x 2 seen in the transverse colon resected with cold snare completely 3. 3 mm sessile polyp seen in the rectum s/p resection using cold snare 4. Internal hemorrhoids Images Procedure images: Rec_hd_video_T [id number].jpg Rechd_video_ [id number].jpg Rec_hd_video_ [id number].jpg Rec_hd_video_ [id number].jpg Rec_hd_video_T [id number].jpg . Post-Procedure Complications: none. Estimated blood loss: Minimal. Specimens: sent to pathology. Devices/ implants: none left in place. Impression and Plan 3 colon polyps?removed as above Internal hemorrhoids Recommendations: Repeat colonoscopy:: In 3 to 5 years . Follow-up:: in clinic for 1-2 weeks when pathology is available. Diet:: Previous. Medication resumption:: Continue current medications, Avoid NSAIDs. Return (more content not included)... Normal [facility] Comment on above: Result Comment: Elec tronically Signed By: Elif MARCUS, Sharad Lynn\.br\Date and Time Signed: 07/12/24 08:46 EDT Other Comment: [place] Attachment - attachment storage system not supported [id number] Can be viewed in source system Missing Attachment - attachment storage system not supported [id number] Can be viewed in source system Missing Attachment - attachment storage system not supported [id number] Can be viewed in source system Missing Attachment - attachment storage system not supported [id number] Can be viewed in source system Missing Attachment - attachment storage system not supported [id number] Can be viewed in source system Ambulatory Visit Summaryon 0 06-30-2024 Ambulatory Visit Summary Ambulatory Visit Summary SYED MICHELLE Joaquin :1950 Visit Date:10/08/2023 Ambulatory Visit Instructions Your Care Team Primary Care Physician - LON MILLER MD This Is Your Medications List Non-Formulary Medication (magnesium) aspirin atorvastatin atorvastatin (atorvastatin 80 mg Tab) carvedilol cyanocobalamin (Vitamin B12) docusate-senna (Stool Softener with Laxative) hydrALAZINE (hydrALAZINE 50 mg Tab) isosorbide mononitrate (isosorbide mononitrate 30 mg ER Tab) polyethylene glycol 3350 (MiraLax) potassium chloride (Potassium Chloride (Eqv-K-Tab) 20 mEq oral tablet, extended release) senna (Senna 8.6 mg oral tablet) spironolactone (spironolactone 25 mg Tab) Procedures Performed Cholecystectomy, Colonoscope, Hysterectomy, Mastectomy. What to do next Scheduled Follow-Up Appointments Thursday 8:00 AM EDT Where: [facility] Medications What How Much When Why Instructions Changed atorvastatin 80 Milligram By Mouth Every day Changed atorvastatin (atorvastatin 80 mg Tab) Changed potassium chloride (Potassium Chloride (Eqv-K-Tab) 20 mEq oral tablet, extended release) Unchanged aspirin 81 Milligram By Mouth Every day Unchanged carvedilol 25 Milligram By Mouth 2 times a day Unchanged cyanocobalamin (Vitamin B12) Unchanged docusate-senna (Stool Softener with Laxative) Unchanged hydrALAZINE (hydrALAZINE 50 mg Tab) Unchanged isosorbide mononitrate (isosorbide mononitrate 30 mg ER Tab) 1 Tablets By Mouth Once a day (in the morning) Unchanged Non-Formulary Medication (magnesium) 400 Milligram Unchanged polyethylene glycol 3350 (MiraLax) By Mouth Every day Unchanged senna (Senna 8.6 mg oral tablet) 2 Tablets By Mouth Once a day (at bedtime) as needed for for constipation History of colon polyps Melanosis coli Unchanged spironolactone (spironolactone 25 mg Tab) Allergies sulfa drugs Problems Ongoing - Any problem that you are currently receiving treatment for. Family hx of colon cancer Hydronephrosis Kidney stones Melanosis coli Renal cyst Smoker Historical - Any problem [...] you for choosing us for your care. Normal [facility] Gastroenterology Office/Clin ic Noteon 06-30-2024 Gastroenterology Office/Clinic Note Gastroenterology Office/Clinic Note Chief Complaint colonoscopy HPI Staff This is a 73 year old female who presents today for a 5 year recall. Family history: Mother and sister Denies Blood Thinners Denies GLP-1 Agonists Denies Dysphagia, abdominal pain, constipation, diarrhea or bloody stools. Denies any previous EGD Denies any recent imaging or labs Colonoscopy w/ Dr Irwin 01/27/19 Impression and Plan 1. Sessile polyp, 5 mm, in the transverse, removed completely with cold snare 2. 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 Small nonbleeding internal hemorrhoids Recommendations: Repeat colonoscopy:: In 5 years, Pending pathology results. Final Diagnosis (Verified) POLYP, TRANSVERSE COLON, POLYPECTOMY: TUBULAR ADENOMA. History of Present Illness I have reviewed HPI staff note, most recent labs and imaging, more than 30 minutes spent reviewing the chart, during encounter, placing orders and counseling the patient. PT is doing well hx of constipation on miralax used to be on senna mother and sister with colon cancer Review of Systems PHQ Score Initial Depression Screen Score: 0 SCORE All systems reviewed, negative except as mentioned above Physical Exam Vitals & Measurements HR: 52(Peripheral) BP: 164/79 HT: 68 in HT: 173 cm WT: 54.8 kg WT: 120.56 lb BMI: 18.31 General: alert, no acute distress HEENT: atraumatic normocephalic Cardiovascular: regular rate and rhythm, normal peripheral perfusion Respiratory: Lungs CTA, respirations non labored Extremities: no deformity, no trauma Abdomen: Benign, soft, nontender nondistended Assessment/Plan 1. History of colon polyps (Z86.010: Personal history of colonic polyps) Ordered: senna, 17.2 mg, 2 tab(s), Oral, Once a day (at bedtime) for constipation, 100 tab(s), Refill(s) 0, [id number], 173, cm, 06/30/24 10:17:00 EDT, Height/Length Dosing, 54.8, kg, 06/30/24 10:17:00 EDT, Weight Dosing Colonoscopy (Hospital Procedure) 2. Melanosis coli (K63.89: Other specified diseases of intestine) Ordered: senna, 17.2 mg, 2 tab(s), Oral, Once a day (at bedtime) for constipation, 100 tab(s), Refill(s) 0, [facility]/pharmacy #[id number], 173, cm, 06/30/24 10:17:00 EDT, Height/Length Dosing, 54.8, kg, 06/30/24 10:17:00 EDT, Weight Dosing 3. Family hx of colon cancer (Z80.0: Family history of malignant neoplasm of digestive organs) schedule colonoscopy refill senna and might benefit from other treatments in the future try squatty potty and massage the colon advised to consume kiwi and prunes Follow-up No qualifying data available Problem List/Past Medical History Ongoing Family hx of colon cancer Hydronephrosis Kidney stones Melanosis coli Renal cyst Smoker Historical Anxiety Breast cancer in remission Coronary artery disease Hypercholesterolemia Hyperlipidemia Hypertension Hypokalemia Overactive bladder Subdural hematoma Procedure/Surgical History Cholecystectomy, Colonoscope, Hysterectomy, Mastectomy. Medications aspirin, 81 mg, Oral, Daily atorvastatin, 80 mg, Oral, Daily atorvastatin 80 mg Tab carvedilol, 25 mg, Oral, BID hydrALAZINE 50 mg Tab isosorbide mononitrate 30 mg ER Tab, 30 mg= 1 tab(s), Oral, qAM, Not taking magnesium, 400 mg MiraLax, Oral, Daily Potassium Chloride (Eqv-K-Tab) 20 mEq oral tablet, extended release Senna 8.6 mg oral tablet, 17.2 mg= 2 tab(s), Oral, Once a day (at bedtime), PRN spironolactone 25 mg Tab Stool Softener with Laxative Vitamin B12 Allergies sulfa drugs Social History Alcohol - Denies Alcohol Use, 02/15/2015 Substance Abuse - Denies Substance Abuse, 02/15/2015 Tobacco - High Risk, 02/15/2015 5-9 cigarettes (between 1/4 to 1/2 pack)/day in last 30 days Tobacco Use:. Never Smokeless Tobacco Use:. Cigarettes, 06/30/2024 Current Every Day Smoker, Cigarettes, 02/15/2015 Family History Cancer: Sister and Brother. Colon cancer stage 1: Mother. Diabetes mellitus: Brother. Heart disease: Brother. High cholesterol: Brother. Hypertension: Father, Sister and Brother. Mental illness: Mother. Primary malignant neoplasm of colon: Sister. Stroke: Father. Immunizations Vaccine Date Status influenza virus vaccine, inactivated 08/19/2022 Recorded zoster vaccine, inactivated 02/19/2019 Recorded zoster vaccine, inactivated 12/12/2018 Recorded influenza virus vaccine, inactivated 07/09/2018 Recorded influenza virus vaccine, inactivated 06/25/2017 Recorded influenza virus vaccine, inactivated 07/18/2016 Recorded influenza virus vaccine, inactivated 08/24/2015 Recorded influenza virus vaccine, inactivated 07/12/[address] [facility] Comment on above: Result Comment: Elec tronically Signed By: Elif MARCUS, Sharad Mas.br\Date and Time Signed: 06/30/24 10:38 EDT Aerobic throat cultureOrdere d By: Teresita Ortega on 06-28-2024 Bacteria identified Aer cx Nom (Throat) 2 Days [facility] No Panel InformationOrdered By: Teresita Ortega on 06-28-2024 Quick Strep (POC) [facility] Throat Cultureon 06-28-2024 Throat culture Heavy Normal Respira tory Yolanda 2 Days PERFORMED BY: [place] [address] PATHOLOGIST [employer]S DEPARTMENT MANAGER ANTWON BETANCUR M.D. Normal [facility] Comment on above: Performed By: #### C UT #### [address] No Panel InformationOrdered By: Wendy Chávez on 06-08-2024 Quick Strep (POC) [facility] Aerobic throat cultureOrdere d By: Teresita Ortega on 05-21-2024 Bacteria identified Aer cx Nom (Throat) 2 Days [facility] No Panel InformationOrdered By: Teresita Ortega on 05-21-2024 Quick Strep (POC) [facility] Throat Cultureon 05-21-2024 Throat culture Heavy Normal Respira tory Yolanda 2 Days PERFORMED BY: [place] [address] PATHOLOGIST [employer]S DEPARTMENT MANAGER ANTWON BETANCUR M.D. Normal [facility] Comment on above: Performed By: #### C UT #### [facility] [address] [place] [address] No Panel InformationOrdered By: Mallorie Guardado on 04-04-2024 Quick Strep (POC) [facility] Erythrocyte distribution wid th Auto (RBC) [Ratio]on 03-01-2024 Erythrocyte distribution width (RBC) [Ratio] 13.2 % 11.0-15.0 [facility] Estimated glomerular filtrat ion rate (GFR) non- Americanon 03-01-2024 GFR/1.73 sq M.predicted among non-blacks MDRD (S/P/Bld) [Vol rate/Area] 49 mL/min/{1.73_m2} Low >=60 [facility] Globulin Calc (S) [Mass/Vol] on 03-01-2024 Globulin (S) [Mass/Vol] 3.1 g/dL [facility] Hematocrit Auto (Bld) [Volum e fraction]on 03-01-2024 Hematocrit (Bld) [Volume fraction] 38.4 % 36.0-48.0 [facility] Hemoglobin [Mass/volume] in Bloodon 03-01-2024 Hemoglobin (Bld) [Mass/Vol] 12.3 g/dL 12.0-16.0 [facility] Laboratory - Chemistry and C hemistry - challengeon 03-01-2024 Albumin [Mass/Vol] 3.8 g/dL 3.4-5.0 [facility] ALP [Catalytic activity/Vol] 68 U/L 46-116 [facility] ALT [Catalytic activity/Vol] 37 U/L 14-59 [facility] AST [Catalytic activity/Vol] 21 U/L 15-37 [facility] Bilirubin [Mass/Vol] 0.6 mg/dL 0.2-1.0 [facility] Calcium [Mass/Vol] 9.2 mg/dL 8.5-10.1 [facility] Chloride [Moles/Vol] 105 mmol/L 98-107 [facility] CO2 [Moles/Vol] 27.0 mmol/L 21.0-32.0 [facility] Creatinine [Mass/Vol] 1.09 mg/dL High 0.55-1.02 [facility] GFR/1.73 sq M.predicted MDRD (S/P/Bld) [Vol rate/Area] 60 mL/min/{1.73_m2} >=60 [facility] Glucose [Mass/Vol] 89 mg/dL 74-106 [facility] Magnesium [Mass/Vol] 2.3 mg/dL 1.8-2.4 [facility] Potassium [Moles/Vol] 4.0 mmol/L 3.5-5.1 [facility] Protein [Mass/Vol] 6.9 g/dL 6.4-8.2 [facility] Sodium [Moles/Vol] 141 mmol/L 136-145 [facility] Urea nitrogen [Mass/Vol] 18.0 mg/dL 7.0-18.0 [facility] Urea nitrogen/Creatinine [Mass ratio] 16.5 mg/mg [facility] Laboratory - Urinalysison Protein (U) [Mass/Vol] 17.4 mg/dL High <=11.9 [facility] Leukocytes [#/volume] correc maria l for nucleated erythrocytes in Blood by Automated counon 03-01-2024 WBC corrected for nucl RBC Auto (Bld) [#/Vol] 9.1 10 3/uL 4.0-11.0 [facility] MCH Auto (RBC) [Entitic mass ]on 03-01-2024 MCH (RBC) [Entitic mass] 29.5 pg 26.7-34.0 [facility] MCHC Auto (RBC) [Mass/Vol]on 03-01-2024 MCHC (RBC) [Mass/Vol] 32.0 g/dL 29.9-35.2 [facility] MCV Auto (RBC) [Entitic vol] on 03-01-2024 MCV (RBC) [Entitic vol] 92.1 fL 81.0-99.0 [facility] No Panel Informationon 03-01 25-Hydroxy Vitamin D Total 30.0 ng/mL [facility] Comment on above: <20 ng/mL Vit D defi cient20-<30 ng/mL Vit D kijcwkizpztt21-134 ng/mL Vit D sufficient>100 ng/mL Potential Toxicity Phosphorus Level 3.5 mg/dL 2.6-4.7 [facility] Urine Random Creatinine 100.00 mg/dL 20.00-300.0 0 [facility] Platelet mean volume Auto (B ld) [Entitic vol]on 03-01-2024 Platelet mean volume (Bld) [Entitic vol] 10.4 fL 9.5-13.5 [facility] Platelets Auto (Bld) [#/Vol] on 03-01-2024 Platelets (Bld) [#/Vol] 209 10 3/uL 150-450 [facility] RBC Auto (Bld) [#/Vol]on RBC (Bld) [#/Vol] 4.17 10 6/uL Low 4.20-5.40 [facility] Serum or plasma albumin/glob ulin mass ratioon 03-01-2024 Albumin/Globulin [Mass ratio] 1.2 {ratio} [facility] Serum or plasma anion gap de terminationon 03-01-2024 Anion gap [Moles/Vol] 13.0 mmol/L [facility] Urine protein/creatinine rat ioon 03-01-2024 Protein/Creatinine (U) [Ratio] 0.17 [facility] No Panel InformationOrdered By: Teresita Ortega on 02-04-2024 Quick Strep (POC) [facility] MR TRANSFER OF OUTSIDE FILMS on 01-27-2024 MR TRANSFER OF OUTSIDE FILMS Outside images for comparison or treatment purposes, not interpreted by Radiologists. Normal [facility] Study Interpretation of outs moshe studyon 01-27-2024 Outside images for comparison or treatment purposes, not interpreted by Radiologists. IMAGING No Panel InformationOrdered By: Lidia Alarcon on 01-22-2024 Quick Strep (POC) [facility] Patient Letter FTMCon 2023 Patient Letter FT (Inserted Image. Nery ble to display) December 30, [address] [place] [address] [place] [address] : 1950 Dear Syed, This is a reminder that you are due for an appointment with [employer] [facility]. Please contact our office at [phone] to schedule an appointment at your earliest convenience. Thank you, [facility] Normal [facility] Reminderson 12-30-2023 Reminders - From: Jacquelyn Schroeder MA To: TALA - Reminders/Recalls; Sent: 10/08/2023 14:43:01 EST Show up: 12/28/2023 14:42:00 EDT Subject: colon recall Due Date/Time: 01/28/2024 14:42:00 EDT Reminder Message [address] Marcos 01/27/19 first recall letter Normal [facility] Office Visiton 11-09-2023 Follow-up visit [id number] Syed Michelle 1950 F Date Provider Department Center 11/09/2023 [facility] Family History Problem Relation Age of Onset Other Mother Aneurysm Father Hypertension Father Hypertension Brother Family Status - Relation Status Age at Mother Father Brother Level of Service:67717 [place] OFFICE/OUTPATIENT ESTABLISHED LOW MDM 20 MIN Normal [facility] Urinalysis - DIPSTICKon 11-3 Appearance (U) Clear [employer] Other Bilirubin Ql (U) Negative [employer] Other Color (U) Yellow [employer] Other Glucose Ql (U) Negative [employer] Other Hemoglobin Ql (U) Negative [employer] Other Ketones Ql (U) Negative [employer] Other Leukocyte esterase Test strip Ql (U) Negative [employer] Other Nitrite Ql (U) Negative [employer] Other pH (U) 5.0 [pH] [employer] Other Protein Ql (U) Trace [employer] Other Specific gravity (U) [Rel density] 1.010 [employer] Other Urobilinogen (U) [Mass/Vol] 0.2 mg/dL [facility] [employer] Other Urinalysis - DIPSTICK [facility] [employer] Other Urine Cultureon 09-10-2023 Bacteria identified Cx Nom (U) <9,000 colonies/ml mixed bacterial skin contaminants 2 Days PERFORMED BY: [place] [address] PATHOLOGIST PARTS DEPARTMENT MANAGER ANTWON BETANCUR M.D. Normal [facility] Comment on above: Performed By: #### C UU #### [place] [id number] [facility] Formson 09-09-2023 Forms [id number]#[id number] Normal [facility] Physician Referralon 023 Physician Referral [id number] Normal [facility] Screenson 09-09-2023 Screens [id number] Normal [facility] Ambulatory Visit Summaryon 11-08-2022 Ambulatory Visit Summary SYED MICHELLE :1950 Visit Date:09/08/2023 Ambulatory Visit Instructions Your Diagnosis Hydronephrosis Renal cyst Kidney stones Tests Performed Urnls Dip Stick Auto w/o Microscopy POC [id number] Your Care Team Attending Physician - Frank MARCUS, Flores Loe Primary Care Physician - PAUL MARCUS, LON Referring Physician - ETIENNE MARCUS, VLADIMIR This Is Your Medications List Non-Formulary Medication [...] Following Appointments Follow Up with Frank MARCUS, LAURA Palacios, URO When: Comments: PRN Where: Medications What [...] Urnls Dip Stick Auto w/o Microscopy POC 00878 (09/08/2023) Bilirubin Urine Dipstick - Negative Blood Urine Dipstick - Trace-intact Glucose Urine Dipstick - Negative Ketones Urine Dipstick - Negative Leukocytes Urine Dipstick - 1+ Small Nitrite Urine Dipstick - Negative Protein Urine Dipstick - Negative Specific [place] Urine Dipstick - 1.020 Urine Appearance Urine [...] ? 8 oz (237 mL) of milk, hkeuaux-fjsvinwcyjyv-qzix y milk, and calcium-fortifiedfruit juice. Calcium-fortified means [...] ? L (more content not included)... Normal [facility] Patient Educationon 09-08-20 23 Patient Education Nephrology Dietary Guidelines to Help [...] ? 8 oz (237 mL) of milk, kwrjhen-qjoicbitnurx-taly y milk, and calcium-fortifiedfruit juice. Calcium-fortified means [...] Spinach (cooked), rhubarb, beets, sweet potatoes, and Guyanese chard. ? Peanuts. ? Potato chips, latvian fries, and baked potatoes with skin on. ? Nuts and nut products. ? Chocolate. ? If you regularly take a diuretic medicine, make sure to eat at least 1 or 2 servings of fruits or vegetables that are high in potassium each day. These include: ? Avocado. ? Banana. ? [place], prune, carrot, or tomato juice. ? Baked [...] fish oil, or vitamin B6. ? Take [id number]-[id number] and prescription medicines only as told by your health care provider. These include supplements. What foods should I limit? Limit your in (more content not included)... 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 FAITH [...] to Help Prevent Kidney Stones I, Magaly Li, personally scribed for Dr. Marie on 09/08/2023 11:18:39. . Portions of this record may have been created with voice recognition artificial intelligence software, specifically Betify, Filecubed and or A V.E.T.S.c.a.r.e.. Substitutions may have occurred due to the inherent limitations of voice recognition and artificial intelligence software. Documentation recorded by the scribeMagaly, accurately reflects the services(s) I (more content not included)... [facility] Comment on above: Result Comment: Elec tronically Signed By: Flores Marei MD\.br\Date and Time Signed: 09/08/23 11:54 EST\.br\Electronically Co-Signed By: Magaly Li\.br\Date and Time Co-Signed: 09/08/23 11:19 EST RAD - CT Reporton 09-01-2023 RAD - CT Report [id number]#[id number] [facility] Physician Orderon 08-17-2023 Physician Order [id number]#1.00TIFF [facility] Quick Strepon 07-20-2023 S. pyogenes Org specific cx Ql (Throat) Negative Schol[facility] Other Quick Strep Scholrly Other Quick Strepon 07-03-2023 S. pyogenes Org specific cx Ql (Throat) Negative Scholr[facility] Other Quick Strep Sch[facility] Other Quick Strepon 06-23-2023 S. pyogenes Org specific cx Ql (Throat) Positive Scholr[employer] Other [employer] Strep Schol[employer]ly Other SARS-CoV-2 (COVID-19) RNA NA A+probe Ql (Resp)on 06-23-2023 SARS-CoV-2 (COVID-19) RNA BEKAH+probe Ql (Unsp spec) Negative Sch[facility] Other Quick Strepon 06-12-2023 S. pyogenes Org specific cx Ql (Throat) Positive Scholr[employer] Other [employer] Strep Scholrly Other Quick Strepon 04-29-2023 S. pyogenes Org specific cx Ql (Throat) Positive Scholr[facility] Other Quick Strep Scholr[facility] Other Quick Strepon 03-17-2023 S. pyogenes Org specific cx Ql (Throat) Positive Schol[employer] Other [employer] Strep Scholrly Other CBC AUTO DIFFon 01-26-2023 BASO # 0.0 103/ul Normal 0.0-0.1 [facility] Comment on above: Performed By: #### C MP, TSH #### [facility] [address] [place] [address] Dr. Shayy Hernandez Basophils/100 WBC (Bld) 0.6 % Normal 0.2-2.[address] [facility] Comment on above: Performed By: #### C MP, TSH #### [facility] [address] [place] [address] Dr. Shayy Hernandez EO # 0.2 103/ul Normal 0.0-0.7 [facility] Comment on above: Performed By: #### C MP, TSH #### [facility] [address] [place] [address] Dr. Shayy Hernandez Eosinophils/100 WBC (Bld) 3.2 % Normal 0.9-7.0 [facility] Comment on above: Performed By: #### C MP, TSH #### [facility] [address] [place] [address] Dr. Shayy Hernandez Erythrocyte distribution width (RBC) [Ratio] 12.8 % Normal 11.0-15.0 [facility] Comment on above: Performed By: #### C MP, TSH #### [facility] [address] [place] [address] Dr. Shayy Hernandez Hematocrit (Bld) [Volume fraction] 38.6 % Normal 36.0-48.0 [facility] Comment on above: Performed By: #### C SAHRA, TSH #### [facility] [address] [place] [address] Dr. Shayy Hernandez Hemoglobin (Bld) [Mass/Vol] 12.7 g/dL Normal 12.0-16.0 [facility] Comment on above: Performed By: #### C SAHRA, TSH #### [facility] [address] [place] [address] Dr. Shayy Hernandez IG # 0.01 10e3/ul Normal 0.00-0.03 [facility] Comment on above: Performed By: #### C SAHRA, TSH #### [facility] [address] [place] [address] Dr. Shayy Hernandez IG % 0.2 % Normal 0.0-0.5 [facility] Comment on above: Performed By: #### C SAHRA, TSH #### [facility] [address] [place] [address] Dr. Shayy Hernandez LYMPH # 1.7 103/ul Normal 1.2-3.[address] [facility] Comment on above: Performed By: #### C MP, TSH #### [facility] [address] [place] [address] Dr. Shayy Hernandez Lymphocytes/100 WBC (Bld) 27.2 % Normal 20.5-60.0 [facility] Comment on above: Performed By: #### C SAHRA, TSH #### [facility] [address] [place] [address] Dr. Shayy Hernandez MANUAL DIFF REQ NO Normal The [facility] Comment on above: Performed By: #### C MP, TSH #### [facility] [address] [place] [address] Dr. Shayy Hernandez MCH (RBC) [Entitic mass] 29.8 pg Normal 26.7-34.0 [facility] Comment on above: Performed By: #### C MP, TSH #### [facility] [address] [place] [address] Dr. Shayy Hernandez MCHC (RBC) [Mass/Vol] 32.9 g/dL Normal 29.9-35.[address] [facility] Comment on above: Performed By: #### C MP, TSH #### [facility] [address] [place] [address] Dr. Shayy Hernandez MCV (RBC) [Entitic vol] 90.6 fL Normal 81.0-99.[address] [facility] Comment on above: Performed By: #### C MP, TSH #### [facility] [address] [place] [address] Dr. Shayy Hernandez MONO # 0.5 103/ul Normal 0.3-0.[address] [facility] Comment on above: Performed By: #### C MP, TSH #### [facility] [address] [place] [address] Dr. Shayy Hernandez Monocytes/100 WBC (Bld) 7.9 % Normal 1.7-12.[address] [facility] Comment on above: Performed By: #### C MP, TSH #### [facility] [address] [place] [address] Dr. Shayy Hernandez NEUT # 3.8 103/ul Normal 1.4-6.[address] [facility] Comment on above: Performed By: #### C MP, TSH #### [facility] [address] [place] [address] Dr. Shayy Hernandez Neutrophils/100 WBC (Bld) 60.9 % Normal 43.0-75.[address] [facility] Comment on above: Performed By: #### C MP, TSH #### [facility] [address] [place] [address] Dr. Shayy Hernandez Platelet mean volume (Bld) [Entitic vol] 9.6 fL Normal 9.5-13.5 [facility] Comment on above: Performed By: #### C MP, TSH #### [facility] [address] [place] [address] Dr. Shayy Hernandez PLT 195 103/ul Normal 150-[address] [facility] Comment on above: Performed By: #### C MP, TSH #### [facility] [address] [place] [address] Dr. Shayy Hernandez RBC 4.26 106/ul Normal 4.20-5.40 [facility] Comment on above: Performed By: #### C MP, TSH #### [facility] [address] [place] [address] Dr. Shayy Hernandez WBC 6.2 103/ul Normal 4.0-11.0 [facility] Comment on above: Performed By: #### C MP, TSH #### [facility] [address] [place] [address] Dr. Shayy Hernandez PROF 14(COMP METB)on 023 Albumin [Mass/Vol] 3.8 g/dL Normal 3.4-5.0 [facility] Comment on above: Performed By: #### F T4 #### [facility] [address] [place] [address] Dr. Shayy Hernandez Albumin/Globulin [Mass ratio] 1.1 {ratio} Normal [facility] Comment on above: Performed By: #### F T4 #### [facility] [address] [place] [address] Dr. Shayy Hernandez ALP [Catalytic activity/Vol] 77 U/L Normal 46-[address] [facility] Comment on above: Performed By: #### F T4 #### [facility] [address] [place] [address] Dr. Shayy Hernandez ALT [Catalytic activity/Vol] 33 U/L Normal 14-59 [facility] Comment on above: Performed By: #### F T4 #### [facility] [address] [place] [address] Dr. Shayy Hernandez Anion gap [Moles/Vol] 12.3 mmol/L Normal [facility] Comment on above: Performed By: #### F T4 #### [facility] [address] [address] [address] Shayy Hernandez AST [Catalytic activity/Vol] 17 U/L Normal 15-37 [facility] Comment on above: Performed By: #### F T4 #### [facility] [address] [address] [address] Shayy Hernandez Bilirubin [Mass/Vol] 0.6 mg/dL Normal 0.2-1.0 [facility] Comment on above: Performed By: #### F T4 #### [facility] [address] [address] [address] Shayy Hernandez Calcium [Mass/Vol] 9.1 mg/dL Normal 8.5-10.1 [facility] Comment on above: Performed By: #### F T4 #### [facility] [address] [address] [address] Shayy Hernandez Chloride [Moles/Vol] 107 mmol/L Normal 98-107 [facility] Comment on above: Performed By: #### F T4 #### [facility] [address] [address] [address] Shayy Hernandez CO2 [Moles/Vol] 26.9 mmol/L Normal 21.0-32.0 [facility] Comment on above: Performed By: #### F T4 #### [facility] [address] [address] [address] Shayy Hernandez Creatinine [Mass/Vol] 0.98 mg/dL Normal 0.55-1.02 [facility] Comment on above: Performed By: #### F T4 #### [facility] [address] [place] [address] Dr. Shayy Hernandez EGFR-AF [place] >60 Normal >=60 [facility] Comment on above: Performed By: #### F T4 #### [facility] [address] [address] [address] Shayy Hernandez EGFR-NON AF [place] 56 mL/min/1.73m2 Critically low >=60 [facility] Comment on above: Performed By: #### F T4 #### [facility] [address] [place] [address] Dr. Shayy Hernandez Globulin (S) [Mass/Vol] 3.6 g/dL Normal [facility] Comment on above: Performed By: #### F T4 #### [facility] [address] [address] [address] Shayy Hernandez Glucose [Mass/Vol] 77 mg/dL Normal 74-106 [facility] Comment on above: Performed By: #### F T4 #### [facility] [address] [place] [address] Dr. Shayy Hernandez Potassium [Moles/Vol] 4.2 mmol/L Normal 3.5-5.1 [facility] Comment on above: Performed By: #### F T4 #### [facility] [address] [place] [address] Dr. Shayy Hernandez Protein [Mass/Vol] 7.4 g/dL Normal 6.4-8.2 [facility] Comment on above: Performed By: #### F T4 #### [facility] [address] [place] [address] Dr. Shayy Hernandez Sodium [Moles/Vol] 142 mmol/L Normal 136-145 [facility] Comment on above: Performed By: #### F T4 #### [facility] [address] [place] [address] Dr. Shayy Hernandez Urea nitrogen [Mass/Vol] 18.0 mg/dL Normal 7.0-18.0 [facility] Comment on above: Performed By: #### F T4 #### [facility] [address] [place] [address] Dr. Shayy Hernandez Urea nitrogen/Creatinine [Mass ratio] 18.4 mg/mg Normal [facility] Comment on above: Performed By: #### F T4 #### [facility] [address] [place] [address] Dr. Shayy Hernandez UA RANDOMon 01-26-2023 Bilirubin Ql (U) Negative Normal NEGATIVE [facility] Comment on above: Performed By: #### U A #### [facility] [address] [place] [address] Dr. Shayy Hernandez Clarity (U) CLEAR Normal CLEAR [facility] Comment on above: Performed By: #### U A #### [facility] [address] [place] [address] Dr. Shayy Hernandez Color (U) LT. YELLOW Normal YELLOW [facility] Comment on above: Performed By: #### U A #### [facility] [address] [place] [address] Dr. Shayy Hernandez Glucose Ql (U) Negative Normal NEGATIVE [facility] Comment on above: Performed By: #### U A #### [facility] [address] [place] [address] Dr. Shayy Hernandez Hemoglobin Ql (U) Negative Normal NEGATIVE [facility] Comment on above: Performed By: #### U A #### [facility] [address] [place] [address] Dr. Shayy Hernandez Ketones Ql (U) Negative Normal NEGATIVE [facility] Comment on above: Performed By: #### U A #### [facility] [address] [place] [address] Dr. Shayy Hernandez LEUKOCYTES Negative Normal NEGATIVE [facility] Comment on above: Performed By: #### U A #### [facility] [address] [place] [address] Dr. Shayy Hernandez Nitrite Ql (U) Negative Normal NEGATIVE [facility] Comment on above: Performed By: #### U A #### [facility] [address] [place] [address] Dr. Shayy Hernandez pH (U) 6.5 [pH] Normal 5-[address] [facility] Comment on above: Performed By: #### U A #### [facility] [address] [place] [address] Dr. Shayy Hernandez SPEC GRAVITY 1.010 Normal 1.005-<=1.0 25 [facility] Comment on above: Performed By: #### U A #### [facility] [address] [place], [place] [id number] Dr. Shayy Hernandez UA PROTEIN Negative Normal NEGATIVE/ TRACE [facility] Comment on above: Performed By: #### U A #### [facility] [address] [place] [address] Dr. Shayy Hernandez Urobilinogen Qn (U) 0.2 {Marco A'U}/dL Normal 0.2 - 1. [address] [facility] Comment on above: Performed By: #### U A #### [facility] [address] [place] [address] Dr. Shayy Hernandez URIC ACID SERUMon 01-26-2023 Urate [Mass/Vol] 4.4 mg/dL Normal 2.6-6.0 [facility] Comment on above: Performed By: #### F T4 #### [facility] [address] [place] [address] Dr. Shayy Hernandez URINE T PROTEIN CREAT RATIOo n 01-26-2023 Protein (U) [Mass/Vol] 15.2 mg/dL Critically high <=12.0 [facility] Comment on above: Performed By: #### C MP, TSH #### [facility] [address] [place] [address] Dr. Shayy Hernandez UR PROT CREAT RAT 0.13 Normal The [facility] Comment on above: Performed By: #### C MP, TSH #### [facility] [address] [place] [address] Dr. Shayy Hernandez URINE CREAT 113.89 mg/dL Normal 20.00-300.0 0 [facility] Comment on above: Performed By: #### C MP, TSH #### [facility] [address] [place] [address] Dr. Shayy Hernandez VITAMIN D 25 OHon 01-26-2023 VIT D 25-OH 19.0 ng/mL Normal [facility] Comment on above: Performed By: #### C MP, TSH #### [facility] [address] [place] [address] Dr. Shayy Hernandez VIT D RANGES SEE BELOW Normal [facility] Comment on above: Result Comment: <20 ng/mL Vit D deficient 20 - <30 ng/mL Vit D insufficient 30 - 100 ng/mL Vit D sufficient >100 ng/mL Potential Toxicity Performed By: #### C MP, TSH #### [facility] [address] [place] [address] Dr. Shayy Hernandez [facility]ST[facility] 3D [place] CA Don 12-23-2022 [facility] 3D [place] CAD Patient: SYED MICHELLE Exam Date: 12/23/2022 : 1950 Gender:F Ordering : DR LON MILLER M.D. Admission #: [id number] Family : Order #: [id number] CLICK HERE TO VIEW EXAM RADIOLOGY REPORT [...] Left mastectomy Family Cancers None LOCATION: [facility] BREAST COMPOSITION: Extremely dense, which lowers [...] M.D. on 12/23/2022 at 15:[address] [facility] US BREAST LEFT LIMITEDon US BREAST LEFT LIMITED Patient: SYED MICHELLE Exam Date: 12/23/2022 : 1950 Gender:F Ordering : DR LON MILLER M.D. Admission #: [id number] Family : Order #: [id number] CLICK HERE TO VIEW EXAM RADIOLOGY REPORT [...] Left mastectomy Family Cancers None LOCATION: [facility] BREAST COMPOSITION: Extremely dense, which lowers [...] Aguirre M.D. on 12/23/2022 at 15:43 Normal [facility] Office Visiton 12-05-2022 Follow-up visit [id number] Syed Michelle 1950 F Date Provider Department Center 12/05/2022 IVETTE CRISTOBAL [facility] Family History Problem Relation Age of Onset Other Mother Aneurysm Father Hypertension Father Hypertension Brother Family Status - Relation Status Age at Mother Father Brother Level of Service:51953 AR OFFICE/OUTPATIENT ESTABLISHED MOD MDM 30-39 MIN Reason for Visit and Comments: Hypertension [469782] Coronary Artery Disease [187] Normal [facility] CBC AUTO DIFFon 12-01-2022 BASO # 0.0 103/ul Normal 0.0-0.1 [facility] Comment on above: Performed By: #### C BC #### [facility] [address] [place] [address] Dr. Shayy Hernandez Basophils/100 WBC (Bld) 0.4 % Normal 0.2-2.0 [facility] Comment on above: Performed By: #### C BC #### [facility] [address] [place] [address] Dr. Shayy Hernandez EO # 0.2 103/ul Normal 0.0-0.7 [facility] Comment on above: Performed By: #### C BC #### [facility] [address] [place] [address] Dr. Shayy Hernandez Eosinophils/100 WBC (Bld) 3.5 % Normal 0.9-7.0 [facility] Comment on above: Performed By: #### C BC #### [facility] [address] [place] [address] Dr. Shayy Hernandez Erythrocyte distribution width (RBC) [Ratio] 13.4 % Normal 11.0-15.0 [facility] Comment on above: Performed By: #### C BC #### [facility] [address] [place] [address] Dr. Shayy Hernandez Hematocrit (Bld) [Volume fraction] 37.0 % Normal 36.0-48.0 [facility] Comment on above: Performed By: #### C BC #### [facility] [address] [place] [address] Dr. Shayy Hernandez Hemoglobin (Bld) [Mass/Vol] 11.9 g/dL Critically low 12.0-16.0 [facility] Comment on above: Performed By: #### C BC #### [facility] [address] [place] [address] Dr. Shayy Hernandez IG # 0.01 10e3/ul Normal 0.00-0.03 [facility] Comment on above: Performed By: #### C BC #### [facility] [address] [place] [address] Dr. Shayy Hernandez IG % 0.2 % Normal 0.0-0.5 [facility] Comment on above: Performed By: #### C BC #### [facility] [address] [place] [address] Dr. Shayy Hernandez LYMPH # 1.5 103/ul Normal 1.2-3.8 [facility] Comment on above: Performed By: #### C BC #### [facility] [address] [place] [address] Dr. Shayy Hernandez Lymphocytes/100 WBC (Bld) 31.4 % Normal 20.5-60.0 [facility] Comment on above: Performed By: #### C BC #### [facility] [address] [place] [address] Dr. Shayy Hernandez MANUAL DIFF REQ NO Normal [facility] Comment on above: Performed By: #### C BC #### [facility] [address] [place] [address] Dr. Shayy Hernandez MCH (RBC) [Entitic mass] 28.9 pg Normal 26.7-34.0 [facility] Comment on above: Performed By: #### C BC #### [facility] [address] [place] [address] Dr. Shayy Hernandez MCHC (RBC) [Mass/Vol] 32.2 g/dL Normal 29.9-35.2 [facility] Comment on above: Performed By: #### C BC #### [facility] [address] [place] [address] Dr. Shayy Hernandez MCV (RBC) [Entitic vol] 89.8 fL Normal 81.0-99.0 [facility] Comment on above: Performed By: #### C BC #### [facility] [address] [place] [address] Dr. Shayy Hernandez MONO # 0.4 103/ul Normal 0.3-0.8 [facility] Comment on above: Performed By: #### C BC #### [facility] [address] [place] [address] Dr. Shayy Hernandez Monocytes/100 WBC (Bld) 9.0 % Normal 1.7-12.0 [facility] Comment on above: Performed By: #### C BC #### [facility] [address] [place] [address] Dr. Shayy Hernandez NEUT # 2.7 103/ul Normal 1.4-6.5 [facility] Comment on above: Performed By: #### C BC #### [facility] [address] [place] [address] Dr. Shayy Hernandez Neutrophils/100 WBC (Bld) 55.5 % Normal 43.0-75.0 [facility] Comment on above: Performed By: #### C BC #### [facility] [address] [place] [address] Dr. Shayy Hernandez Platelet mean volume (Bld) [Entitic vol] 10.1 fL Normal 9.5-13.5 [facility] Comment on above: Performed By: #### C BC #### [facility] [address] [place] [address] Dr. Shayy Hernandez PLT 186 103/ul Normal 150-450 [facility] Comment on above: Performed By: #### C BC #### [facility] [address] [place] [address] Dr. Shayy Hernandez RBC 4.12 106/ul Critically low 4.20-5.40 [facility] Comment on above: Performed By: #### C BC #### [facility] [address] [place] [address] Dr. Shayy Hernandez WBC 4.9 103/ul Normal 4.0-11.0 [facility] Comment on above: Performed By: #### C BC #### [facility] [address] [place] [address] Dr. Shayy Hernandez FREE T4on 12-01-2022 Free T4 [Mass/Vol] 1.00 ng/dL Normal 0.76-1.46 [facility] Comment on above: Performed By: #### F T4 #### [facility] [address] [place] [address] Dr. Shayy Hernandez PROF 14(COMP METB)on 02-20-2 023 Albumin [Mass/Vol] 3.9 g/dL Normal 3.4-5.[address] [facility] Comment on above: Performed By: #### F T4 #### [facility] [address] [place] [address] Dr. Shayy Hernandez Albumin/Globulin [Mass ratio] 1.3 {ratio} Normal [facility] Comment on above: Performed By: #### F T4 #### [facility] [address] [place] [address] Dr. Shayy Hernandez ALP [Catalytic activity/Vol] 73 U/L Normal 46-116 [facility] Comment on above: Performed By: #### F T4 #### [facility] [address] [place] [address] Dr. Shayy Hernandez ALT [Catalytic activity/Vol] 45 U/L Normal 14-59 [facility] Comment on above: Performed By: #### F T4 #### [facility] [address] [place] [address] Dr. Shayy Hernandez Anion gap [Moles/Vol] 11.4 mmol/L Normal [facility] Comment on above: Performed By: #### F T4 #### [facility] [address] [place] [address] Dr. Shayy Hernandez AST [Catalytic activity/Vol] 29 U/L Normal 15-37 [facility] Comment on above: Performed By: #### F T4 #### [facility] [address] [place] [address] Dr. Shayy Hernandez Bilirubin [Mass/Vol] 0.5 mg/dL Normal 0.2-1.0 [facility] Comment on above: Performed By: #### F T4 #### [facility] [address] [place] [address] Dr. Shayy Hernandez Calcium [Mass/Vol] 9.0 mg/dL Normal 8.5-10.[address] [facility] Comment on above: Performed By: #### F T4 #### [facility] [address] [place] [address] Dr. Shayy Hernandez Chloride [Moles/Vol] 106 mmol/L Normal 98-107 [facility] Comment on above: Performed By: #### F T4 #### [facility] [facility] [address] [address] [address] Shayy Hernandez CO2 [Moles/Vol] 26.5 mmol/L Normal 21.0-32.0 [facility] Comment on above: Performed By: #### F T4 #### [facility] [address] [address] [address] Shayy Hernandez Creatinine [Mass/Vol] 0.97 mg/dL Normal 0.55-1.02 [facility] Comment on above: Performed By: #### F T4 #### [facility] [address] [address] [address] Shayy Hernandez EGFR-AF [place] >60 Normal >=60 [facility] Comment on above: Performed By: #### F T4 #### [facility] [address] [place] [address] Dr. Shayy Hernandez EGFR-NON AF [place] 57 mL/min/1.73m2 Critically low >=60 [facility] Comment on above: Performed By: #### F T4 #### [facility] [address] [address] [address] Shayy Hernandez Globulin (S) [Mass/Vol] 3.1 g/dL Normal [facility] Comment on above: Performed By: #### F T4 #### [facility] [address] [place] [address] Dr. Shayy Hernandez Glucose [Mass/Vol] 75 mg/dL Normal 74-[address] [facility] Comment on above: Performed By: #### F T4 #### [facility] [address] [address] [address] Shayy Hernandez Potassium [Moles/Vol] 3.9 mmol/L Normal 3.5-5.[address] [facility] Comment on above: Performed By: #### F T4 #### [facility] [address] [address] [address] Shayy Hernandez Protein [Mass/Vol] 7.0 g/dL Normal 6.4-8.[address] [facility] Comment on above: Performed By: #### F T4 #### [facility] [address] [address] [address] Shayy Hernandez Sodium [Moles/Vol] 140 mmol/L Normal 136-[address] [facility] Comment on above: Performed By: #### F T4 #### [facility] [address] [address] [address] Shayy Hernandez Urea nitrogen [Mass/Vol] 20.0 mg/dL Critically high 7.0-18.0 [facility] Comment on above: Performed By: #### F T4 #### [facility] [address] [address] [address] Shayy Hernandez Urea nitrogen/Creatinine [Mass ratio] 20.6 mg/mg Normal [facility] Comment on above: Performed By: #### F T4 #### [facility] [address] [place] [address] Dr. Shayy Hernandez TSHon 12-01-2022 TSH 1.746 uIU/mL Normal 0.358-3.740 [facility] Comment on above: Performed By: #### F T4 #### [facility] [address] [place] [address] Dr. Shayy Hernandez PROF CHEM 8 (BAS METB)on Anion gap [Moles/Vol] 11.8 mmol/L Normal [facility] Comment on above: Performed By: #### F T4 #### [facility] [address] [place] [address] Dr. Shayy Hernandez Calcium [Mass/Vol] 8.9 mg/dL Normal 8.5-10.[address] [facility] Comment on above: Performed By: #### F T4 #### [facility] [address] [place] [address] Dr. Shayy Hernandez Chloride [Moles/Vol] 105 mmol/L Normal 98-107 [facility] Comment on above: Performed By: #### F T4 #### [facility] [address] [place] [address] Dr. Shayy Hernandez CO2 [Moles/Vol] 27.6 mmol/L Normal 21.0-32.0 [facility] Comment on above: Performed By: #### F T4 #### [facility] [address] [address] [address] Shayy Hernandez Creatinine [Mass/Vol] 0.80 mg/dL Normal 0.55-1.02 [facility] Comment on above: Performed By: #### F T4 #### [facility] [address] [address] [address] Shayy Hernandez EGFR-AF [place] >60 Normal >=60 [facility] Comment on above: Performed By: #### F T4 #### [facility] [address] [address] [address] Shayy Hernandez EGFR-NON AF [place] >60 Normal >=60 [facility] Comment on above: Performed By: #### F T4 #### [facility] [address] [place] [address] Dr. Shayy Hernandez Glucose [Mass/Vol] 91 mg/dL Normal 74-106 [facility] Comment on above: Performed By: #### F T4 #### [facility] [address] [place] [address] Dr. Shayy Hernandez Potassium [Moles/Vol] 4.4 mmol/L Normal 3.5-5.1 [facility] Comment on above: Performed By: #### F T4 #### [facility] [address] [place] [address] Dr. Shayy Hernandez Sodium [Moles/Vol] 140 mmol/L Normal 136-[address] [facility] Comment on above: Performed By: #### F T4 #### [facility] [address] [place] [address] Dr. Shayy Hernandez Urea nitrogen [Mass/Vol] 13.0 mg/dL Normal 7.0-18.0 [facility] Comment on above: Performed By: #### F T4 #### [facility] [address] [place] [address] Dr. Shayy Hernandez Urea nitrogen/Creatinine [Mass ratio] 16.2 mg/mg Normal [facility] Comment on above: Performed By: #### F T4 #### [facility] [address] [address] [address] Shayy Hernandez CBC AUTO DIFFon 10-20-2022 BASO # 0.0 103/ul Normal 0.0-0.1 [facility] Comment on above: Performed By: #### C BC #### [facility] [address] [place] [address] Dr. Shayy Hernandez Basophils/100 WBC (Bld) 0.4 % Normal 0.2-2.[address] [facility] Comment on above: Performed By: #### C BC #### [facility] [address] [place] [address] Dr. Shayy Hernandez EO # 0.2 103/ul Normal 0.0-0.[address] [facility] Comment on above: Performed By: #### C BC #### [facility] [address] [place] [address] Dr. Shayy Hernandez Eosinophils/100 WBC (Bld) 2.0 % Normal 0.9-7.0 [facility] Comment on above: Performed By: #### C BC #### [facility] [address] [place] [address] Dr. Shayy Hernandez Erythrocyte distribution width (RBC) [Ratio] 13.3 % Normal 11.0-15.0 [facility] Comment on above: Performed By: #### C BC #### [facility] [address] [place] [address] Dr. Shayy Hernandez Hematocrit (Bld) [Volume fraction] 35.8 % Critically low 36.0-48.[address] [facility] Comment on above: Performed By: #### C BC #### [facility] [address] [place] [address] Dr. Shayy Hernandez Hemoglobin (Bld) [Mass/Vol] 12.4 g/dL Normal 12.0-16.[address] [facility] Comment on above: Performed By: #### C BC #### [facility] [address] [place] [address] Dr. Shayy Hernandez IG # 0.02 10e3/ul Normal 0.00-0.[address] [facility] Comment on above: Performed By: #### C BC #### [facility] [address] [place] [address] Dr. Shayy Hernandez IG % 0.3 % Normal 0.0-0.5 [facility] Comment on above: Performed By: #### C BC #### [facility] [address] [place] [address] Dr. Shayy Hernandez LYMPH # 1.2 103/ul Normal 1.2-3.[address] [facility] Comment on above: Performed By: #### C BC #### [facility] [address] [place] [address] Dr. Shayy Hernandez Lymphocytes/100 WBC (Bld) 15.2 % Critically low 20.5-60.[address] [facility] Comment on above: Performed By: #### C BC #### [facility] [address] [place] [address] Dr. Shayy Hernandez MANUAL DIFF REQ NO Normal [facility] Comment on above: Performed By: #### C BC #### [facility] [address] [place] [address] Dr. Shayy Hernandez MCH (RBC) [Entitic mass] 29.2 pg Normal 26.7-34.0 [facility] Comment on above: Performed By: #### C BC #### [facility] [address] [place] [address] Dr. Shayy Hernandez MCHC (RBC) [Mass/Vol] 34.6 g/dL Normal 29.9-35.[address] [facility] Comment on above: Performed By: #### C BC #### [facility] [address] [place] [address] Dr. Shayy Hernandez MCV (RBC) [Entitic vol] 84.2 fL Normal 81.0-99.[address] [facility] Comment on above: Performed By: #### C BC #### [facility] [address] [place] [address] Dr. Shayy Hernandez MONO # 0.5 103/ul Normal 0.3-0.[address] [facility] Comment on above: Performed By: #### C BC #### [facility] [address] [place] [address] Dr. Shayy Hernandez Monocytes/100 WBC (Bld) 6.7 % Normal 1.7-12.0 [facility] Comment on above: Performed By: #### C BC #### [facility] [address] [place] [address] Dr. Shayy Hernandez NEUT # 5.9 103/ul Normal 1.4-6.5 [facility] Comment on above: Performed By: #### C BC #### [facility] [address] [place] [address] Dr. Shayy Hernandez Neutrophils/100 WBC (Bld) 75.4 % Critically high 43.0-75.0 [facility] Comment on above: Performed By: #### C BC #### [facility] [address] [place] [address] Dr. Shayy Hernandez Platelet mean volume (Bld) [Entitic vol] 9.9 fL Normal 9.5-13.5 [facility] Comment on above: Performed By: #### C BC #### [facility] [address] [place] [address] Dr. Shayy Hernandez PLT 165 103/ul Normal 150-450 [facility] Comment on above: Performed By: #### C BC #### [facility] [address] [place] [address] Dr. Shayy Hernandez RBC 4.25 106/ul Normal 4.20-5.40 [facility] Comment on above: Performed By: #### C BC #### [facility] [address] [place] [address] Dr. Shayy Hernandez WBC 7.9 103/ul Normal 4.0-11.0 [facility] Comment on above: Performed By: #### C BC #### [facility] [address] [place] [address] Dr. Shayy Hernandez FREE T4on 10-20-2022 Free T4 [Mass/Vol] 1.08 ng/dL Normal 0.76-1.46 [facility] Comment on above: Performed By: #### F T4 #### [facility] [address] [place] [address] Dr. Shayy Hernandez PROF 14(COMP METB)on 023 Albumin [Mass/Vol] 3.8 g/dL Normal 3.4-5.0 [facility] Comment on above: Performed By: #### C MP, TSH #### [facility] [address] [place] [address] Dr. Shayy Hernandez Albumin/Globulin [Mass ratio] 1.2 {ratio} Normal [facility] Comment on above: Performed By: #### C MP, TSH #### [facility] [address] [place] [address] Dr. Shayy Hernandez ALP [Catalytic activity/Vol] 69 U/L Normal 46-116 [facility] Comment on above: Performed By: #### C MP, TSH #### [facility] [address] [place] [address] Dr. Shayy Hernandez ALT [Catalytic activity/Vol] 32 U/L Normal 14-59 [facility] Comment on above: Performed By: #### C MP, TSH #### [facility] [address] [place] [address] Dr. Shayy Hernandez Anion gap [Moles/Vol] 13.9 mmol/L Normal [facility] Comment on above: Performed By: #### C MP, TSH #### [facility] [address] [place] [address] Dr. Shayy Hernandez AST [Catalytic activity/Vol] 27 U/L Normal 15-37 [facility] Comment on above: Performed By: #### C MP, TSH #### [facility] [address] [address] [address] Shayy Hernandez Bilirubin [Mass/Vol] 0.6 mg/dL Normal 0.2-1.0 [facility] Comment on above: Performed By: #### C MP, TSH #### [facility] [address] [place] [address] Dr. Shayy Hernandez Calcium [Mass/Vol] 8.9 mg/dL Normal 8.5-10.[address] [facility] Comment on above: Performed By: #### C MP, TSH #### [facility] [address] [place] [address] Dr. Shayy Hernandez Chloride [Moles/Vol] 105 mmol/L Normal 98-[address] [facility] Comment on above: Performed By: #### C MP, TSH #### [facility] [address] [address] [address] Shayy Hernandez CO2 [Moles/Vol] 24.3 mmol/L Normal 21.0-32.0 [facility] Comment on above: Performed By: #### C MP, TSH #### [facility] [address] [address] [address] Shayy Hernandez Creatinine [Mass/Vol] 0.94 mg/dL Normal 0.55-1.02 [facility] Comment on above: Performed By: #### C MP, TSH #### [facility] [address] [place] [address] Dr. Shayy Hernandez EGFR-AF [place] >71 Normal >=60 [facility] Comment on above: Performed By: #### C MP, TSH #### [facility] [address] [place] [address] Dr. Shayy Hernandez EGFR-NON AF [place] 59 mL/min/1.73m2 Critically low >=60 [facility] Comment on above: Performed By: #### C MP, TSH #### [facility] [address] [place] [address] Dr. Shayy Hernandez Globulin (S) [Mass/Vol] 3.1 g/dL Normal [facility] Comment on above: Performed By: #### C MP, TSH #### [facility] [address] [address] [address] Shayy Hernandez Glucose [Mass/Vol] 118 mg/dL Critically high 74-106 [facility] Comment on above: Performed By: #### C MP, TSH #### [facility] [address] [address] [address] Shayy Hernandez Potassium [Moles/Vol] 3.2 mmol/L Critically low 3.5-5.1 [facility] Comment on above: Performed By: #### C MP, TSH #### [facility] [address] [place] [address] Dr. Shayy Hernandez Protein [Mass/Vol] 6.9 g/dL Normal 6.4-8.[address] [facility] Comment on above: Performed By: #### C MP, TSH #### [facility] [address] [address] [address] Shayy Hernandez Sodium [Moles/Vol] 140 mmol/L Normal 136-[address] [facility] Comment on above: Performed By: #### C MP, TSH #### [facility] [address] [address] [address] Shayy Hernandez Urea nitrogen [Mass/Vol] 13.0 mg/dL Normal 7.0-18.0 [facility] Comment on above: Performed By: #### C MP, TSH #### [facility] [address] [place] [address] Dr. Shayy Hernandez Urea nitrogen/Creatinine [Mass ratio] 13.8 mg/mg Normal [facility] Comment on above: Performed By: #### C MP, TSH #### [facility] [address] [place] [address] Dr. Shayy Hernandez TSHon 10-20-2022 TSH 1.896 uIU/mL Normal 0.358-3.740 [facility] Comment on above: Performed By: #### C MP, TSH #### [facility] [address] [place] [address] Dr. Shayy Hernandez COVID + FLU Quick Testingon 10-19-2022 SARS-CoV-2 (COVID-19) RNA BEKAH+probe Ql (Unsp spec) Negative [facility] [employer] Other COVID + FLU Quick Testing Negative [facility] [employer] Other Quick Strepon 10-19-2022 S. pyogenes Org specific cx Ql (Throat) Positive [facility] [employer] Other Quick Strep [facility] [employer] Other COVID/FLU/RSV RT-PCRon 10-08 SARS-CoV-2 (COVID-19) RNA BEKAH+probe Ql (Unsp spec) Negative [facility] Other COVID/FLU/RSV RT-PCR Negative [facility] [employer] Other Quick Strepon 10-08-2022 S. pyogenes Org specific cx Ql (Throat) Negative [facility] [employer] Other Quick Strep [facility] [employer] Other CBC AUTO DIFFon 08-28-2022 BASO # 0.0 103/ul Normal 0.0-0.1 [facility] Comment on above: Performed By: #### C BC #### [facility] [address] [place] [address] Dr. Shayy Hernandez Basophils/100 WBC (Bld) 0.8 % Normal 0.2-2.0 [facility] Comment on above: Performed By: #### C BC #### [facility] [address] [place] [address] Dr. Shayy Hernandez EO # 0.1 103/ul Normal 0.0-0.7 [facility] Comment on above: Performed By: #### C BC #### [facility] [address] [place] [address] Dr. Shayy Hernandez Eosinophils/100 WBC (Bld) 2.5 % Normal 0.9-7.0 [facility] Comment on above: Performed By: #### C BC #### [facility] [address] [address] [address] Shayy Hernandez Erythrocyte distribution width (RBC) [Ratio] 12.6 % Normal 11.0-15.0 [facility] Comment on above: Performed By: #### C BC #### [facility] [address] [place] [address] Dr. Shayy Hernandez Hematocrit (Bld) [Volume fraction] 37.6 % Normal 36.0-48.0 [facility] Comment on above: Performed By: #### C BC #### [facility] [address] [place] [address] Dr. Shayy Hernandez Hemoglobin (Bld) [Mass/Vol] 12.6 g/dL Normal 12.0-16.0 [facility] Comment on above: Performed By: #### C BC #### [facility] [address] [place] [address] Dr. Shayy Hernandez IG # 0.01 10e3/ul Normal 0.00-0.03 [facility] Comment on above: Performed By: #### C BC #### [facility] [address] [place] [address] Dr. Shayy Hernandez IG % 0.2 % Normal 0.0-0.5 [facility] Comment on above: Performed By: #### C BC #### [facility] [address] [place] [address] Dr. Shayy Hernandez LYMPH # 1.6 103/ul Normal 1.2-3.8 [facility] Comment on above: Performed By: #### C BC #### [facility] [address] [place] [address] Dr. Shayy Hernandez Lymphocytes/100 WBC (Bld) 31.4 % Normal 20.5-60.0 [facility] Comment on above: Performed By: #### C BC #### [facility] [address] [place] [address] Dr. Shayy Hernandez MANUAL DIFF REQ NO Normal [facility] Comment on above: Performed By: #### C BC #### [facility] [address] [place] [address] Dr. Shayy Hernandez MCH (RBC) [Entitic mass] 29.4 pg Normal 26.7-34.0 [facility] Comment on above: Performed By: #### C BC #### [facility] [address] [place] [address] Dr. Shayy Hernandez MCHC (RBC) [Mass/Vol] 33.5 g/dL Normal 29.9-35.[address] [facility] Comment on above: Performed By: #### C BC #### [facility] [address] [place] [address] Dr. Shayy Hernandez MCV (RBC) [Entitic vol] 87.9 fL Normal 81.0-99.0 [facility] Comment on above: Performed By: #### C BC #### [facility] [address] [place] [address] Dr. Shayy Hernandez MONO # 0.5 103/ul Normal 0.3-0.[address] [facility] Comment on above: Performed By: #### C BC #### [facility] [address] [place] [address] Dr. Shayy Hernandez Monocytes/100 WBC (Bld) 8.6 % Normal 1.7-12.[address] [facility] Comment on above: Performed By: #### C BC #### [facility] [address] [place] [address] Dr. Shayy Hernandez NEUT # 3.0 103/ul Normal 1.4-6.[address] [facility] Comment on above: Performed By: #### C BC #### [facility] [address] [place] [address] Dr. Shayy Hernandez Neutrophils/100 WBC (Bld) 56.5 % Normal 43.0-75.[address] [facility] Comment on above: Performed By: #### C BC #### [facility] [address] [place] [address] Dr. Shayy Hernandez Platelet mean volume (Bld) [Entitic vol] 10.1 fL Normal 9.5-13.[address] [facility] Comment on above: Performed By: #### C BC #### [facility] [address] [place] [address] Dr. Shayy Hernandez PLT 193 103/ul Normal 150-[address] [facility] Comment on above: Performed By: #### C BC #### [facility] [address] [place] [address] Dr. Shayy Hernandez RBC 4.28 106/ul Normal 4.20-5.[address] [facility] Comment on above: Performed By: #### C BC #### [facility] [address] [place] [address] Dr. Shayy Hernandez WBC 5.2 103/ul Normal 4.0-11.[address] [facility] Comment on above: Performed By: #### C BC #### [facility] [address] [place] [address] Dr. Shayy Hernandez ER URINE PROFILEon 2 Bilirubin Ql (U) Negative Normal NEGATIVE [facility] Comment on above: Performed By: #### F T4 #### [facility] [address] [place] [address] Dr. Shayy Hernandez Clarity (U) CLEAR Normal CLEAR [facility] Comment on above: Performed By: #### F T4 #### [facility] [address] [place] [address] Dr. Shayy Hernandez Color (U) LT. YELLOW Normal YELLOW [facility] Comment on above: Performed By: #### F T4 #### [facility] [address] [place] [address] Dr. Shayy Hernandez ERUAHD A micrscopic examina tion will be performed if indicated. Normal [facility] Comment on above: Performed By: #### F T4 #### [facility] [address] [place] [address] Dr. Shayy Hernandez Glucose Ql (U) Negative Normal NEGATIVE [facility] Comment on above: Performed By: #### F T4 #### [facility] [address] [place] [address] Dr. Shayy Hernandez Hemoglobin Ql (U) Negative Normal NEGATIVE [facility] Comment on above: Performed By: #### F T4 #### [facility] [address] [place] [address] Dr. Shayy Hernandez Ketones Ql (U) Negative Normal NEGATIVE [facility] Comment on above: Performed By: #### F T4 #### [facility] [address] [place] [address] Dr. Shayy Hernandez LEUKOCYTES Negative Normal NEGATIVE [facility] Comment on above: Performed By: #### F T4 #### [facility] [address] [place] [address] Dr. Shayy Hernandez Nitrite Ql (U) Negative Normal NEGATIVE [facility] Comment on above: Performed By: #### F T4 #### [facility] [address] [place] [address] Dr. Shayy Hernandez pH (U) 7.5 [pH] Normal 5-9 [facility] Comment on above: Performed By: #### F T4 #### [facility] [address] [place] [address] Dr. Shayy Hernandez SPEC GRAVITY 1.010 Normal 1.005-<=1.0 25 [facility] Comment on above: Performed By: #### F T4 #### [facility] [address] [place] [address] Dr. Shayy Hernandez UA PROTEIN Negative Normal NEGATIVE/ TRACE [facility] Comment on above: Performed By: #### F T4 #### [facility] [address] [place] [address] Dr. Shayy Hernandez UR MICRO IND NOT INDICATED Normal [facility] Comment on above: Performed By: #### F T4 #### [facility] [address] [place] [address] Dr. Shayy Hernandez Urobilinogen Qn (U) 0.2 {Marco A'U}/dL Normal 0.2 - 1. 0 [facility] Comment on above: Performed By: #### F T4 #### [facility] [address] [place] [address] Dr. Shayy Hernandez PROF CHEM 8 (BAS METB)on Anion gap [Moles/Vol] 9.8 mmol/L Normal [facility] Comment on above: Performed By: #### B MP #### [facility] [address] [place] [address] Dr. Shayy Hernandez Calcium [Mass/Vol] 9.1 mg/dL Normal 8.5-10.1 [facility] Comment on above: Performed By: #### B MP #### [facility] [address] [place] [address] Dr. Shayy Hernandez Chloride [Moles/Vol] 105 mmol/L Normal 98-[address] [facility] Comment on above: Performed By: #### B MP #### [facility] [address] [place] [address] Dr. Shayy Hernandez CO2 [Moles/Vol] 27.6 mmol/L Normal 21.0-32.0 [facility] Comment on above: Performed By: #### B MP #### [facility] [address] [address] [address] Shayy Hernandez Creatinine [Mass/Vol] 1.07 mg/dL Critically high 0.55-1.02 [facility] Comment on above: Performed By: #### B MP #### [facility] [address] [place] [address] [address] Shayy Hernandez EGFR-AF [place] >60 Normal >=60 [facility] Comment on above: Performed By: #### B MP #### [facility] [address] [address] [address] Shayy Hernandez EGFR-NON AF [place] 51 mL/min/1.73m2 Critically low >=60 [facility] Comment on above: Performed By: #### B MP #### [facility] [address] [address] [address] Shayy Hernandez Glucose [Mass/Vol] 91 mg/dL Normal 74-106 [facility] Comment on above: Performed By: #### B MP #### [facility] [address] [address] [address] Shayy Hernandez Potassium [Moles/Vol] 3.4 mmol/L Critically low 3.5-5.1 [facility] Comment on above: Performed By: #### B MP #### [facility] [address] [address] [address] Shayy Hernandez Sodium [Moles/Vol] 139 mmol/L Normal 136-[address] [facility] Comment on above: Performed By: #### B MP #### [facility] [address] [address] [address] Shayy Hernandez Urea nitrogen [Mass/Vol] 19.0 mg/dL Critically high 7.0-18.0 [facility] Comment on above: Performed By: #### B MP #### [facility] [address] [address] [address] Shayy Hernandez Urea nitrogen/Creatinine [Mass ratio] 17.8 mg/mg Normal [facility] Comment on above: Performed By: #### B MP #### [facility] [address] [address] [address] Shayy Hernandez XR LSPINE 2_3 VIEWSon [...] BUCK AGUIRRE Date: 2022-08-28 13:[address] [facility] PROF 14(COMP METB)on 022 Albumin [Mass/Vol] 3.9 g/dL Normal 3.4-5.0 [facility] Comment on above: Performed By: #### C MP #### [facility] [address] [place] [address] Dr. Shayy Hernandez Albumin/Globulin [Mass ratio] 1.4 {ratio} Normal [facility] Comment on above: Performed By: #### C MP #### [facility] [address] [place] [address] Dr. Shayy Hernandez ALP [Catalytic activity/Vol] 67 U/L Normal 46-[address] [facility] Comment on above: Performed By: #### C MP #### [facility] [address] [place] [address] Dr. Shayy Hernandez ALT [Catalytic activity/Vol] 28 U/L Normal 14-59 [facility] Comment on above: Performed By: #### C MP #### [facility] [address] [place] [address] Dr. Shayy Hernandez Anion gap [Moles/Vol] 12.2 mmol/L Normal [facility] Comment on above: Performed By: #### C MP #### [facility] [address] [place] [address] Dr. Shayy Hernandez AST [Catalytic activity/Vol] 15 U/L Normal 15-37 [facility] Comment on above: Performed By: #### C MP #### [facility] [address] [address] [address] Shayy Hernandez Bilirubin [Mass/Vol] 0.6 mg/dL Normal 0.2-1.0 [facility] Comment on above: Performed By: #### C MP #### [facility] [address] [address] [address] Shayy Hernandez Calcium [Mass/Vol] 8.7 mg/dL Normal 8.5-10.1 [facility] Comment on above: Performed By: #### C MP #### [facility] [address] [address] [address] Shayy Hernandez Chloride [Moles/Vol] 106 mmol/L Normal 98-107 [facility] Comment on above: Performed By: #### C MP #### [facility] [address] [address] [address] Shayy Hernadnez CO2 [Moles/Vol] 28.2 mmol/L Normal 21.0-32.0 [facility] Comment on above: Performed By: #### C MP #### [facility] [address] [address] [address] Shayy Hernandez Creatinine [Mass/Vol] 1.08 mg/dL Critically high 0.55-1.02 [facility] Comment on above: Performed By: #### C MP #### [facility] [address] [address] [address] Shayy Hernandez EGFR-AF [place] >60 Normal >=60 [facility] Comment on above: Performed By: #### C MP #### [facility] [address] [address] [address] Shayy Hernandez EGFR-NON AF [place] 50 mL/min/1.73m2 Critically low >=60 [facility] Comment on above: Performed By: #### C MP #### [facility] [address] [address] [address] Shayy Hernandez Globulin (S) [Mass/Vol] 2.8 g/dL Normal [facility] Comment on above: Performed By: #### C MP #### [facility] [address] [address] [address] Shayy Hernandez Glucose [Mass/Vol] 127 mg/dL Critically high 74-106 [facility] Comment on above: Performed By: #### C MP #### [facility] [address] [address] [address] Shayy Hernandez Potassium [Moles/Vol] 3.4 mmol/L Critically low 3.5-5.1 [facility] Comment on above: Performed By: #### C MP #### [facility] [address] [address] [address] Shayy Hernandez Protein [Mass/Vol] 6.7 g/dL Normal 6.4-8.2 [facility] Comment on above: Performed By: #### C MP #### [facility] [address] [address] [address] Shayy Hernandez Sodium [Moles/Vol] 143 mmol/L Normal 136-145 [facility] Comment on above: Performed By: #### C MP #### [facility] [address] [address] [address] Shayy Hernandez Urea nitrogen [Mass/Vol] 16.0 mg/dL Normal 7.0-18.0 [facility] Comment on above: Performed By: #### C MP #### [facility] [address] [address] [address] Shayy Hernandez Urea nitrogen/Creatinine [Mass ratio] 14.8 mg/mg Normal [facility] Comment on above: Performed By: #### C MP #### [facility] [address] [address] [address] Shayy Hernandez COVID Quick Testingon 2021 Result Negative [employer] Other Quick Fluon 04-11-2022 FLUAV Ab CF (S) [Titer] Negative [employer] Other FLUBV Ab CF (S) [Titer] Negative [employer] Other Quick Strepon 04-11-2022 S. pyogenes Org specific cx Ql (Throat) Positive Cursogram [facility] [employer] Other Quick Strep Cursogram [facility] [employer] Other ER URINE PROFILEon 2 Bilirubin Ql (U) Negative Normal NEGATIVE [facility] Comment on above: Performed By: #### F T4 #### [facility] [address] [place] [address] Dr. Shayy Hernandez Clarity (U) CLEAR Normal CLEAR [facility] Comment on above: Performed By: #### F T4 #### [facility] [address] [place] [address] Dr. Shayy Hernandez Color (U) LT. YELLOW Normal YELLOW [facility] Comment on above: Performed By: #### F T4 #### [facility] [address] [place] [address] Dr. Shayy Hernandez ERUJENIFFER A micrscopic examina tion will be performed if indicated. Normal [facility] Comment on above: Performed By: #### F T4 #### [facility] [address] [place] [address] Dr. Shayy Hernandez Glucose Ql (U) Negative Normal NEGATIVE [facility] Comment on above: Performed By: #### F T4 #### [facility] [address] [place] [address] Dr. Shayy Hernandez Hemoglobin Ql (U) Negative Normal NEGATIVE [facility] Comment on above: Performed By: #### F T4 #### [facility] [address] [place] [address] Dr. Shayy Hernandez Ketones Ql (U) Negative Normal NEGATIVE [facility] Comment on above: Performed By: #### F T4 #### [facility] [address] [place] [address] Dr. Shayy Hernandez LEUKOCYTES Negative Normal NEGATIVE [facility] Comment on above: Performed By: #### F T4 #### [facility] [address] [place] [address] Dr. Shayy Hernandez Nitrite Ql (U) Negative Normal NEGATIVE [facility] Comment on above: Performed By: #### F T4 #### [facility] [address] [address] [address] Shayy Hernandez pH (U) 7.5 [pH] Normal 5-9 [facility] Comment on above: Performed By: #### F T4 #### [facility] [address] [place] [address] Dr. Shayy Hernandez SPEC GRAVITY <=1.005 Abnormal 1.005-<=1.0 25 [facility] Comment on above: Performed By: #### F T4 #### [facility] [address] [address] [address] Shayy Hernandez UA PROTEIN Negative Normal NEGATIVE/ TRACE [facility] Comment on above: Performed By: #### F T4 #### [facility] [address] [place] [address] Dr. Shayy Hernandez UR MICRO IND NOT INDICATED Normal [facility] Comment on above: Performed By: #### F T4 #### [facility] [address] [place] [address] Dr. Shayy Hernandez Urobilinogen Qn (U) 0.2 {Marco A'U}/dL Normal 0.2 - 1. 0 [facility] Comment on above: Performed By: #### F T4 #### [facility] [address] [place] [address] Dr. Shayy Hernandez ALDOSTERONE, 24 HOUR URINEon 02-04-2022 Aldosterone (24H U) [Mass/Time] 3.0 ug/24hr Normal 3.0-<28.1 [facility] Comment on above: Order Comment: Speci men Type: URINE SPECIMEN Ordering Facility: [facility] Address: [address] [place], [place] [address] Performed By: #### L [id number] #### [facility] CLIA [id number] [address] [place] [address] [place] ALDOSTERONE/DIRECT RENIN RAT IOon 02-04-2022 LENORA RENIN RATIO 4.9 High <3.8 [facility] Comment on above: Order Comment: Speci men Type: BLOOD SPECIMEN Ordering Facility: [facility] Address: [address] [place] [address] Result Comment: A ra darek of aldosterone in ng/dL to direct renin in pg/mL greater than or equal to 3.8 is a positive screening test result for primary aldosteronism, when aldosterone is greater than or equal to 15 ng/dL. Performed By: #### A LDREN #### [facility] CLIA [id number] [address] [place] [address] [place] Aldosterone [Mass/Vol] 10.3 ng/dL Normal 0.0-<35.4 [facility] Comment on above: Order Comment: Karoline yang Type: BLOOD SPECIMEN Ordering Facility: [facility] Address: [address] [place] [address] Result Comment: The reference interval for serum/plasma [...] ng/dL. Performed By: #### A LDREN #### [facility] CLIA [id number] [address] [place] [address] [place] DIRECT RENIN 2.1 pg/mL Low 3.6-81.6 [facility] Comment on above: Order Comment: Karoline yang Type: BLOOD SPECIMEN Ordering Facility: [facility] Address: [address] [place] [address] Result Comment: The reference interval for direct [...] ng/dL. Performed By: #### A LDREN #### [facility] CLIA [id number] [address] [place] [address] OF [facility] PATIENT UPRIGHT OR SUPINE Upright Normal [facility] Comment on above: Order Comment: Speci men Type: BLOOD SPECIMEN Ordering Facility: [facility] Address: [address] [place] [address] Performed By: #### A LDREN #### [facility] CLIA [id number] [address] [place] [address] Comprehensive metabolic 2000 panelon 02-04-2022 Albumin [Mass/Vol] 4.8 g/dL Normal 3.9-4.9 [facility] Comment on above: Order Comment: Speci men Type: BLOOD SPECIMEN Ordering Facility: [facility] Address: [address] [place] [address] Performed By: #### 2 4323-8 #### [facility] CLIA [id number] [address] [place] [address] ALP [Catalytic activity/Vol] 79 U/L Normal 34-123 [facility] Comment on above: Order Comment: Speci men Type: BLOOD SPECIMEN Ordering Facility: [facility] Address: [address] [place] [address] Performed By: #### 2 4323-8 #### [facility] CLIA [id number] [address] [place] [address] ALT [Catalytic activity/Vol] 21 U/L Normal 7-38 [facility] Comment on above: Order Comment: Speci men Type: BLOOD SPECIMEN Ordering Facility: [facility] Address: [address] [place] [address] Performed By: #### 2 4323-8 #### [facility] CLIA [id number] [address] [place] [address] Anion gap [Moles/Vol] 12 mmol/L Normal 9-18 [facility] Comment on above: Order Comment: Speci men Type: BLOOD SPECIMEN Ordering Facility: [facility] Address: [address] [address] Performed By: #### 2 4323-8 #### [facility] CLIA [id number] [address] [place] [address] AST [Catalytic activity/Vol] 20 U/L Normal 13-35 [facility] Comment on above: Order Comment: Speci men Type: BLOOD SPECIMEN Ordering Facility: [facility] Address: [address] [place], [place] [address] Performed By: #### 2 4323-8 #### [facility] CLIA [id number] [address] [place] [address] Bilirubin [Mass/Vol] 0.6 mg/dL Normal 0.2-1.3 [facility] Comment on above: Order Comment: Speci men Type: BLOOD SPECIMEN Ordering Facility: [facility] Address: [address] [place] [address] Performed By: #### 2 4323-8 #### [facility] CLIA [id number] [address] [place] [address] Calcium [Mass/Vol] 9.6 mg/dL Normal 8.5-10.2 [facility] Comment on above: Order Comment: Speci men Type: BLOOD SPECIMEN Ordering Facility: [facility] Address: [address] [place], [place] [address] Performed By: #### 2 4323-8 #### [facility] CLIA [id number] [address] [place] [address] Chloride [Moles/Vol] 105 mmol/L Normal 97-105 [facility] Comment on above: Order Comment: Speci men Type: BLOOD SPECIMEN Ordering Facility: [facility] Address: [address] [place], [place] [address] Performed By: #### 2 4323-8 #### [facility] CLIA [id number] [address] [place] [address] CO2 [Moles/Vol] 26 mmol/L Normal 22-30 [facility] Comment on above: Order Comment: Speci men Type: BLOOD SPECIMEN Ordering Facility: [facility] Address: [address] [place] [address] Performed By: #### 2 4323-8 #### [facility] CLIA [id number] [address] [place] [address] Creatinine [Mass/Vol] 1.08 mg/dL High 0.58-0.96 [facility] Comment on above: Order Comment: Speci men Type: BLOOD SPECIMEN Ordering Facility: [facility] Address: [address] [place] [address] Performed By: #### 2 4323-8 #### [facility] CLIA [id number] [address] [place] [address] ESTIMATED GLOMERULAR FILTRATION RATE 56 mL/min/1.73m??? Low >=60 [facility] Comment on above: Order Comment: Speci men Type: BLOOD SPECIMEN Ordering Facility: [facility] Address: [address] [place] [address] Result Comment: Tashia mated Glomerular Filtration Rate [...] GFR. Performed By: #### 2 4323-8 #### [facility] CLIA [id number] [address] [place] [address] Glucose [Mass/Vol] 111 mg/dL High 74-99 [facility] Comment on above: Order Comment: Speci men Type: BLOOD SPECIMEN Ordering Facility: [facility] Address: [address] [place] [address] Result Comment: The [place] [employer] (ADA) provides guidance for cutoff [...] Standards of Medical Care in Diabetes 2016, [place] [employer]. Diabetes Care. 2016.39(Suppl 1). Performed By: #### 2 4323-8 #### [facility] CLIA [id number] [address] [place] [address] Potassium [Moles/Vol] 3.9 mmol/L Normal 3.7-5.1 [facility] Comment on above: Order Comment: Speci men Type: BLOOD SPECIMEN Ordering Facility: [facility] Address: [address] [place] [address] Performed By: #### 2 4323-8 #### [facility] CLIA [id number] [address] [place] [address] Protein [Mass/Vol] 6.9 g/dL Normal 6.3-8.0 [facility] Comment on above: Order Comment: Karoline yang Type: BLOOD SPECIMEN Ordering Facility: [facility] Address: [address] [place] [address] Performed By: #### 2 4323-8 #### [facility] CLIA [id number] [address] [place] [address] Sodium [Moles/Vol] 143 mmol/L Normal 136-144 [facility] Comment on above: Order Comment: Yaquelini men Type: BLOOD SPECIMEN Ordering Facility: [facility] Address: [address] [place] [address] Performed By: #### 2 4323-8 #### [facility] CLIA [id number] [address] [place] [address] Urea nitrogen [Mass/Vol] 11 mg/dL Normal 7-21 [facility] Comment on above: Order Comment: Speci men Type: BLOOD SPECIMEN Ordering Facility: [facility] Address: [address] [place], [place] [address] Performed By: #### 2 4323-8 #### [facility] CLIA [id number] [address] [place] [address] Sodium (24H U) [Moles/Time]o n 02-04-2022 PERIOD (HRS) 24 hours Normal [facility] Comment on above: Order Comment: Speci men Type: TIMED URINE SPECIMEN Ordering Facility: [facility] Address: [address] [place], [place] [address] Performed By: #### 2 956-1 #### [facility] CLIA [id number] [address] [place] [address] LAB CLIA [id number] [address] [place] [address] VOLUME (ML) 1925 mL Normal [facility] Comment on above: Order Comment: Speci men Type: TIMED URINE SPECIMEN Ordering Facility: [facility] Address: [address] [place], [place] [address] Performed By: #### 2 956-1 #### [facility] CLIA [id number] [address] [place] [address] LAB CLIA [id number] [address] [place] [address] Sodium 24h Ur-sRateon 2021 Sodium (24H U) [Moles/Time] 231 mmol/24 hr High 40-220 [facility] Comment on above: Order Comment: Speci men Type: TIMED URINE SPECIMEN Ordering Facility: [facility] Address: [address] [place], [place] [address] Performed By: #### 2 956-1 #### [facility] CLIA [id number] [address] [place], [place] [address] CLIA [id number] [address] [place] [address] CNPKarina 01-01-2022 CNPN Telephone (ENDOMN) ----- SYED MICHELEL ([id number]) 1950 F Date Time Provider Department 01/01/22 ASHANTI FOOTE During your visit today, we recorded the following information about you: Arlette Carias Adjunct Professor Of Voice 01/01/2022 12:27 PM Signed Received various outside medical records. Indexed to chart. Ashanti Foote MD 01/23/2022 4:12 PM Signed Noted. Thanks, Ashanti Foote MD, MPH Allergies As of Date: 01/01/2022 Noted Allergy Reaction SULFA (SULFONAMIDE ANTIBIOTICS) 10/11/2012 4 - Hives LINACLOTIDE 12/24/2021 16 - Unknown Date Reviewed: 12/24/2021 Reviewed by: Theodore Henderson MA - Fully Assessed Reason for Visit: Received Outside Medical Records [4536] Cmt: Referral Documents Prescriptions as of 01/23/2022 [...] Speci men Type: URINE SPECIMEN Order[facility] Facility: [facility] Address: [address] [place] [address] Performed By: #### L [id number] #### [facility] CLIA [id number] [address] [place] [address] [place] Sodium (24H U) [Moles/Time]o n 12-29-2021 PERIOD (HRS) 24 hours Normal [facility] Comment on above: Order Comment: Speci men Type: TIMED URINE SPECIMEN Ordering Facility: [facility] Address: [address] [place] [address] Performed By: #### 2 956-1 #### [facility] CLIA [id number] [address] [place] [address] [place] [facility] CLIA [id number] [address] [place] [address] VOLUME (ML) 1225 mL Normal [facility] Comment on above: Order Comment: Speci men Type: TIMED URINE SPECIMEN Ordering Facility: [facility] Address: [address] [place] [address] Performed By: #### 2 956-1 #### [facility] CLIA [id number] [address] [place] [address] LAB CLIA [id number] [address] [place] [address] Sodium 24h Ur-sRateon 2021 Sodium (24H U) [Moles/Time] 107 mmol/24 hr Normal 40-220 [facility] Comment on above: Order Comment: Speci men Type: TIMED URINE SPECIMEN Ordering Facility: [facility] Address: [address] [place] [address] Performed By: #### 2 956-1 #### [facility] CLIA [id number] [address] [place] [address] LAB CLIA [id number] [address] [place] [address] ALDOSTERONE/DIRECT RENIN RAT IOon 12-24-2021 LENORA RENIN RATIO Normal [facility] Comment on above: Order Comment: Speci men Type: BLOOD SPECIMEN Ordering Facility: [facility] Address: [address] [place] [address] Result Comment: Unab le to calculate because one or more components used in calculation is outside assay range. Performed By: #### A LDREN #### [facility] CLIA [id number] [address] [place] [address] OF [facility] Aldosterone [Mass/Vol] 8.6 ng/dL Normal 0.0-<35.4 [facility] Comment on above: Order Comment: Speci men Type: BLOOD SPECIMEN Ordering Facility: [facility] Address: [address] [place] [address] Result Comment: The reference interval for serum/plasma aldosterone is based on a normal sodium intake and upright position. High sodium intake may suppress aldosterone and low sodium intake may increase aldosterone. The supine reference interval is <23.7 ng/dL. Performed By: #### A LDREN #### [facility] CLIA [id number] [address] [place] [address] OF [facility] DIRECT RENIN <2.1 Low 3.6-81.6 [facility] Comment on above: Order Comment: Karoline yang Type: BLOOD SPECIMEN Ordering Facility: [facility] Address: [address] [place] [address] Performed By: #### A LDREN #### [facility] CLIA [id number] [address] [place] [address] PATIENT UPRIGHT OR SUPINE Upright Normal [facility] Comment on above: Order Comment: Karoline yang Type: BLOOD SPECIMEN Ordering Facility: [facility] Address: [address] [place] [address] Performed By: #### A LDREN #### [facility] CLIA [id number] [address] [place] [address] CNOVon 12-24-2021 CNOV Office Visit (ENDOMN ) ----- SYED MICHELLE ([id number]) 1950 F Date Time Provider Department 12/24/21 [...] these tests. Thank you for choosing the [facility] Department of Endocrinology, Diabetes and Metabolism. Did you know that you need to call 48 hours in advance of your scheduled visit, if you are unable to make your appointment? The Endocrinology [facility] Metabolism [place] thanks you for your commitment, because patients not showing to their appointment results in a lost opportunity for patients to receive [facility] health care at the [facility]. To Cancel an appointment, please choose one of the following: - Call the Appointment Call Center at [phone] - From [employer], Go to Appointments ? Cancel Appts If cancelling, consider your need to reschedule to prevent further delays in your care. To Schedule an appointment, please choose one of the following: - Call the Appointment Call Center at [phone] - From [employer], Go to Appointments ? Request an Appt [...] bilateral subdural hematomas She normally follows in [place]. She sees a lozenge maker helper and they recommended she see endocrinology for [...] maintenance medication. Dr. Clifton is her new lozenge maker helper. On potassium during breast cancer treatment - [...] taking both beta blockers. Both PCP and lozenge maker helper change her BP meds. Current Outpatient Medications [...] once d (more content not included)... Normal [facility] Comprehensive metabolic 2000 panelon 12-24-2021 Albumin [Mass/Vol] 4.5 g/dL 3.9 - 4.9 g/dL [facility] ALP [Catalytic activity/Vol] 73 U/L 34 - 123 U/L [facility] ALT [Catalytic activity/Vol] 23 U/L 7 - 38 U/L [facility] Anion gap [Moles/Vol] 12 mmol/L 9 - 18 mmol/L [facility] AST [Catalytic activity/Vol] 25 U/L 13 - 35 U/L [facility] Bilirubin [Mass/Vol] 0.5 mg/dL 0.2 - 1 .3 mg/dL [facility] Calcium [Mass/Vol] 9.6 mg/dL 8.5 - 10. 2 mg/dL [facility] Chloride [Moles/Vol] 107 mmol/L High 97 - 10 5 mmol/L [facility] CO2 [Moles/Vol] 21 mmol/L Low 22 - 30 mmol/L [facility] Creatinine [Mass/Vol] 0.95 mg/dL 0.58 - 0.96 mg/dL [facility] Estimated Glomerular Filtration Rate 65 mL/min/1.73m >=60 mL/min/1.73 m [facility] Glucose [Mass/Vol] 81 mg/dL 74 - 99 mg/dL [facility] Potassium [Moles/Vol] 4.2 mmol/L 3.7 - 5.1 mmol/L [facility] Protein [Mass/Vol] 7.1 g/dL 6.3 - 8.0 g/dL [facility] Sodium [Moles/Vol] 140 mmol/L 136 - 144 mmol/L [facility] Urea nitrogen [Mass/Vol] 19 mg/dL 7 - 21 mg/dL [facility] Albumin [Mass/Vol] 4.5 g/dL Normal 3.9-4.9 [facility] Comment on above: Order Comment: Speci men Type: BLOOD SPECIMEN Ordering Facility: [facility] Address: [address] [place] [address] Performed By: #### 2 4323-8 #### [facility] CLIA [id number] [address] [place] [address] [place] ALP [Catalytic activity/Vol] 73 U/L Normal 34-123 [facility] Comment on above: Order Comment: Speci men Type: BLOOD SPECIMEN Ordering Facility: [facility] Address: [address] [place], [place] [address] Performed By: #### 2 4323-8 #### [facility] CLIA [id number] [address] [place] [address] [place] ALT [Catalytic activity/Vol] 23 U/L Normal 7-38 [facility] Comment on above: Order Comment: Speci men Type: BLOOD SPECIMEN Ordering Facility: [facility] Address: [address] [place], [place] [address] Performed By: #### 2 4323-8 #### [facility] CLIA [id number] [address] [place] [address] [place] Anion gap [Moles/Vol] 12 mmol/L Normal 9-18 [facility] Comment on above: Order Comment: Speci men Type: BLOOD SPECIMEN Ordering Facility: [facility] Address: [address] [place] [address] Performed By: #### 2 4323-8 #### [facility] CLIA [id number] [address] [place] [address] [place] AST [Catalytic activity/Vol] 25 U/L Normal 13-35 [facility] Comment on above: Order Comment: Speci men Type: BLOOD SPECIMEN Ordering Facility: [facility] Address: [address] [place] [address] Performed By: #### 2 4323-8 #### [facility] CLIA [id number] [address] [place] [address] [place] Bilirubin [Mass/Vol] 0.5 mg/dL Normal 0.2-1.3 [facility] Comment on above: Order Comment: Speci men Type: BLOOD SPECIMEN Ordering Facility: [facility] Address: [address] [place] [address] Performed By: #### 2 4323-8 #### [facility] CLIA [id number] [address] [place] [address] [place] Calcium [Mass/Vol] 9.6 mg/dL Normal 8.5-10.2 [facility] Comment on above: Order Comment: Speci men Type: BLOOD SPECIMEN Ordering Facility: [facility] Address: [address] [place] [address] Performed By: #### 2 4323-8 #### [facility] CLIA [id number] [address] [place] [address] [place] Chloride [Moles/Vol] 107 mmol/L High 97-105 [facility] Comment on above: Order Comment: Speci men Type: BLOOD SPECIMEN Ordering Facility: [facility] Address: [address] [place] [address] Performed By: #### 2 4323-8 #### [facility] CLIA [id number] [address] [place] [address] [place] CO2 [Moles/Vol] 21 mmol/L Low 22-30 [facility] Comment on above: Order Comment: Speci men Type: BLOOD SPECIMEN Ordering Facility: [facility] Address: [address] [place] [address] Performed By: #### 2 4323-8 #### [facility] CLIA [id number] [address] [place] [address] [place] Creatinine [Mass/Vol] 0.95 mg/dL Normal 0.58-0.96 [facility] Comment on above: Order Comment: Speci men Type: BLOOD SPECIMEN Ordering Facility: [facility] Address: [address] [place] [address] Performed By: #### 2 4323-8 #### [facility] CLIA [id number] [address] [place] [address] OF [facility] ESTIMATED GLOMERULAR FILTRATION RATE 65 mL/min/1.73m??? Normal >=60 [facility] Comment on above: Order Comment: Karoline yang Type: BLOOD SPECIMEN Ordering Facility: [facility] Address: [address] [place] [address] Result Comment: Tashia mated Glomerular Filtration Rate [...] GFR. Performed By: #### 2 4323-8 #### [facility] CLIA [id number] [address] [place] [address] [place] Glucose [Mass/Vol] 81 mg/dL Normal 74-99 [facility] Comment on above: Order Comment: Karoline yang Type: BLOOD SPECIMEN Ordering Facility: [facility] Address: [address] [place] [address] Result Comment: The [place] [employer] (ADA) provides guidance for cutoff [...] Standards of Medical Care in Diabetes 2016, [place] [employer]. Diabetes Care. 2016.39(Suppl 1). Performed By: #### 2 4323-8 #### [facility] CLIA [id number] [address] [place] [address] [place] Potassium [Moles/Vol] 4.2 mmol/L Normal 3.7-5.1 [facility] Comment on above: Order Comment: Speci men Type: BLOOD SPECIMEN Ordering Facility: [facility] Address: [address] [place] [address] Performed By: #### 2 4323-8 #### [facility] CLIA [id number] [address] [place] [address] [place] Protein [Mass/Vol] 7.1 g/dL Normal 6.3-8.0 [facility] Comment on above: Order Comment: Speci men Type: BLOOD SPECIMEN Ordering Facility: [facility] Address: [address] [place] [address] Performed By: #### 2 4323-8 #### [facility] CLIA [id number] [address] [place] [address] [place] Sodium [Moles/Vol] 140 mmol/L Normal 136-144 [facility] Comment on above: Order Comment: Speci men Type: BLOOD SPECIMEN Ordering Facility: [facility] Address: [address] [place], [place] [address] Performed By: #### 2 4323-8 #### [facility] CLIA [id number] [address] [place] [address] [place] Urea nitrogen [Mass/Vol] 19 mg/dL Normal 7-21 [facility] Comment on above: Order Comment: Speci men Type: BLOOD SPECIMEN Ordering Facility: [facility] Address: [address] [place], [place] [address] Performed By: #### 2 4323-8 #### [facility] CLIA [id number] [address] [place] [address] [place] HEAD WO CONTRASTon 2020 CT HEAD WO CONTRAST Patient Name: SYED MICHELLE STUDY: CT HEAD WO CONTRAST; 04/02/2021 10:51 am INDICATION: subdural hematoma. COMPARISON: Head CT 02/08/2021 ACCESSION NUMBER(S): [id number] ORDERING CLINICIAN: ANALY ATNHONY TECHNIQUE: Noncontrast axial CT scan of head [...] Electronically signed by: NAE KERR MD Normal [facility] CT Head without Contraston 0 04-02-2021 CT Head limited WO contrast Please click on the link to view the study images Normal [facility]-Neurosurge -[facility] Work Phone: Established Visit (Neurosurg maxime)on 04-02-2021 Established Visit (Neurosurgery) Provider Impressions Ms. MICHELLE is a very nice 70 year old woman with history of CKD, HTN, CAD on asa, HLD, breast ca diagnosed in 2009 s/p mastectomy, s/p hysterectomy, known Right cerebellar [...] TABS Vitals Vital Signs Recorded: 02Apr2021 11:13AM Kkmobkfshyp68 Height5 ft 8 in Licbnz530 lb BMI Dhkylzxzpx44.53 kg/m2 BSA Calculated1.73 Tobacco Usea) Yes Fall Screeninga) No falls within the last year Pain Scale0/10 Time Prep time on date of the patient encounter: 5 minutes. Time spent directly with patient/family/caregiver: 10 minutes. Documentation time: 5 minutes. Total time on date of patient encounter: 20 minutes. Signatures Electronically signed by : Analy Anthony MD; Apr 04 2021 10:09PM EST (Author) Normal Amanda Huff [facility] Tobacco Screening.on 021 Fall risk assessment a) No falls within the last year [facility]-Neurosurge [facility] Work Phone: Tobacco use status CP a) Yes -Neurosurge [facility] Work Phone: CT HEAD WO CONTRASTon 2020 CT HEAD WO CONTRAST Patient Name: SYED MICHELLE STUDY: CT HEAD WO CONTRAST; 03/05/2021 9:38 am INDICATION: F/U CTH for bilateral SDH's. COMPARISON: Prior exam is from 02/08/2021. ACCESSION NUMBER(S): [id number] ORDERING CLINICIAN: ANALY ANTHONY TECHNIQUE: Routine axial [...] . Electronically signed by: MARS JIMENEZ MD [facility] Established Visit (Neurosurg maxime)on 03-05-2021 Established Visit [...] Losartan Potassium TABS Vitals Vital Signs Recorded: 05Mar2021 11:31AM Nxmshhnoqgr18 Xknmtekk822 Ltozyyplv99 Height5 ft 8 in Jjkrxr062 lb BMI Pqaegnzweo87.53 kg/m2 BSA Calculated1.73 Tobacco Usea) Yes Fall [...] 6:11PM EST (Author) Normal [employer] Tobacco Screening.on 021 Fall risk assessment a) No falls within the last year [facility] Work Phone: Tobacco use status CPHS a) Yes [facility] Work Phone: Tobacco Screening. a) Yes [facility]ash rosurge [facility] Work Phone: Admission Risk Screen - Adul [...] Preferencesaudio; written material Cultural Considerationsnone Developmental Considerationsnone Catholic Considerationsnone Learning Assessment (Other Learner): Other learner availableno Depression Screen: During the past month, have you often been bothered by feeling down, depressed or hopelessno During the past month, have you often had little interest or pleasure in doing thingsno Have you had any thoughts of harming anyone elseno [place] Suicide: Risk Screen Not Applicable/Able to Answerable to be screened In the Past Month: Have you wished you were or could go to sleep and not wake upno In the Past Month: Have you had any actual thoughts of killing yourselfno Lifetime: Have you ever done, started to do, or prepared to do anything to end your lifeno [place] Suicide Risknegative Adult Nutrition Screen: Have you [...] Spiritual Screen: Are there any cultural, spiritual, worship practices/values/needs that are important for us to knowno CAGE: Is this an injured patient at a Trauma Center ([facility]/[place]/ [place]): no Vaccinations: Vaccination - Influenza Vaccination Screen: [...] Injury Present on Admissionno Electronic Signatures: Maya Sanz (RN) (Signed 08-Feb-2021 00:43) Authored: Admis (more content not included)... Normal [facility] CBC AND DIFFERENTIALon 02-08 % AUTOMATED IMMATURE GRAN 0.4 % Normal 0.0 - 0.9 [facility] Comment on above: Result Comment: Susy ture Granulocyte Count (IG) includes promyelocytes, myelocytes and metamyelocytes but does not include bands. Percent differential counts (%) should be interpreted in the context of the absolute cell counts (cells/L). Performed By: #### C BCDF #### [facility] [address] [place] [address] Basophils (Bld) [#/Vol] 0.04 10*3/uL Normal 0.00 - 0.10 [facility] Comment on above: Performed By: #### C BCDF #### [facility] [address] [place] [address] Basophils/100 WBC (Bld) 0.7 % Normal 0.0 - 2.0 [facility] Comment on above: Performed By: #### C BCDF #### [facility] [address] [place] [address] Eosinophils (Bld) [#/Vol] 0.27 10*3/uL Normal 0.00 - 0.70 [facility] Comment on above: Performed By: #### C BCDF #### [facility] [address] [place] [address] Eosinophils/100 WBC (Bld) 4.8 % Normal 0.0 - 6.0 [facility] Comment on above: Performed By: #### C BCDF #### [facility] [address] [place] [address] Erythrocyte distribution width (RBC) [Ratio] 13.1 % Normal 11.5 - 14.5 [facility] Comment on above: Performed By: #### C BCDF #### [facility] [address] [place] [address] Hematocrit (Bld) [Volume fraction] 33.9 % Low 36.0 - 46.0 [facility] Comment on above: Performed By: #### C BCDF #### [facility] [address] [place] [address] Hemoglobin (Bld) [Mass/Vol] 11.0 g/dL Low 12.0 - 16.0 [facility] Comment on above: Performed By: #### C BCDF #### [facility] [address] [place] [address] Lymphocytes (Bld) [#/Vol] 1.57 10*3/uL Normal 1.20 - 4.80 [facility] Comment on above: Performed By: #### C BCDF #### [facility] [address] [place] [address] Lymphocytes/100 WBC (Bld) 27.8 % Normal 13.0 - 44.0 [facility] Comment on above: Performed By: #### C BCDF #### [facility] [address] [place] [address] MCHC (RBC) [Mass/Vol] 32.4 g/dL Normal 32.0 - 36.0 [facility] Comment on above: Performed By: #### C BCDF #### [facility] [address] [place] [address] MCV (RBC) [Entitic vol] 92 fL Normal 80 - 100 [facility] Comment on above: Performed By: #### C BCDF #### [facility] [address] [place] [address] Monocytes (Bld) [#/Vol] 0.48 10*3/uL Normal 0.10 - 1.00 [facility] Comment on above: Performed By: #### C BCDF #### [facility] [address] [place] [address] Monocytes/100 WBC (Bld) 8.5 % Normal 2.0 - 10.0 [facility] Comment on above: Performed By: #### C BCDF #### [facility] [address] [place] [address] Neutrophils (Bld) [#/Vol] 3.26 10*3/uL Normal 1.20 - 7.70 [facility] Comment on above: Performed By: #### C BCDF #### [facility] [address] [place] [address] Neutrophils/100 WBC (Bld) 57.8 % Normal 40.0 - 80.0 [facility] Comment on above: Performed By: #### C BCDF #### [facility] [address] [place] [address] NUCLEATED RBC 0.0 /100 WBC Normal 0.0-0.0 [facility] Comment on above: Performed By: #### C BCDF #### [facility] [address] [place] [address] Platelets (Bld) [#/Vol] 195 10*3/uL Normal 150 - 450 [facility] Comment on above: Performed By: #### C BCDF #### [facility] [address] [place] [address] RBC 3.68 x10E12/L Low 4.00 - 5.20 [facility] Comment on above: Performed By: #### C BCDF #### [facility] [address] [place] [address] WBC (Bld) [#/Vol] 5.6 10*3/uL Normal 4.4 - 11.3 [facility] Comment on above: Performed By: #### C BCDF #### [facility] [address] [place] [address] COAGULATION SCREENon aPTT Coag (Bld) [Time] 25 s Normal 25 - 35 [facility] Comment on above: Result Comment: THE APTT IS NO LONGER USED FOR MONITORING UNFRACTIONATED HEPARIN THERAPY. FOR MONITORING HEPARIN THERAPY, USE THE HEPARIN ASSAY. Performed By: #### C OAGS #### [facility] [address] [place] [address] PT Coag (PPP) [Time] 12.8 s Normal 10.1 - 13.3 [facility] Comment on above: Performed By: #### C OAGS #### [facility] [address] [place] [address] PT, INR 1.1 Normal 0.9 - 1.1 [facility] Comment on above: Performed By: #### C OAGS #### [facility] [address] [place] [address] CORONAVIRUS 2019, SCREEN ASY MPTOMATICon 02-08-2021 SARS-CoV-2 (COVID-19) RNA BEKAH+probe Ql (Unsp spec) Not detected Normal Not Detected [facility] Comment on above: Result Comment: . This assay is designed to detect the ORF1ab and/or S genes of SARS-CoV-2 via nucleic acid amplification. A Not Detected result does not preclude 2019-nCoV infection since the adequacy of sample collection and/or low viral burden may result in presence of viral nucleic acids below the clinical sensitivity of this test method. Fact sheet for providers: www.fda.gov/media/955726/download Fact sheet for patients: www.fda.gov/media/155413/download This test has received FDA Emergency Use Authorization (EUA) and has been verified by [facility] ([facility]). This test is only authorized for the duration of time that circumstances exist to justify the authorization of the emergency use of in vitro diagnostic tests for the detection of SARS-CoV-2 virus and/or diagnosis of COVID-19 infection under section 564(b)(1) of the Act, 21 U.S.C. 360bbb-3(b)(1), unless the authorization is terminated or revoked sooner. [facility] is certified under CLIA-88 as qualified to perform high complexity testing. Testing is performed in the [facility] laboratories [place] [address] [place] [address]. Performed By: #### C OVSC ####[id number] [place] [address] Lab Specimen Source Nasal, Nasopharyngeal Normal [facility] Comment on above: Performed By: #### C OVSC ####[id number] [place] [address] CT Angio Neckon 02-08-2021 CTA Neck vessels W contrast IV Normal [facility] Work Phone: [phone] Head without Contraston 0 02-08-2021 CT Head limited WO contrast Normal [facility] Work Phone: [phone] Complete Blood Count + Diffe rentialon 02-08-2021 Basophils/100 WBC (Bld) 0.7 % 0.0 - 2.0 [facility] Work Phone: [phone] Erythrocyte distribution width (RBC) [Ratio] 13.1 % See Below [facility] Work Phone: [phone] Comment on above: Reference Range: 11. 5 - 14.5 Hematocrit (Bld) [Volume fraction] 33.9 % below low threshold See Below [facility] Work Phone: [phone] Comment on above: Reference Range: 36. 0 - 46.0 Hemoglobin (Bld) [Mass/Vol] 11.0 g/dL below low threshold See Below [facility] Work Phone: Comment on above: Reference Range: 12. 0 - 16.0 Lymphocytes/100 WBC (Bld) 27.8 % See Below [facility] Work Phone: Comment on above: Reference Range: 13. 0 - 44.0 MCHC (RBC) [Mass/Vol] 32.4 g/dL See Below [facility] Work Phone: Comment on above: Reference Range: 32. 0 - 36.0 MCV (RBC) [Entitic vol] 92 fL 80 - 100 [facility] Work Phone: Monocytes/100 WBC (Bld) 8.5 % 2.0 - 10.0 [facility] Work Phone: Neutrophils/100 WBC (Bld) 57.8 % See Below [facility] Work Phone: Comment on above: Reference Range: 40. 0 - 80.0 Platelets (Bld) [#/Vol] 195 10*3/uL 150 - 450 [facility] Work Phone: RBC (Bld) [#/Vol] 3.68 {x10E12/L} below low threshold See Below [facility] Work Phone: Comment on above: Reference Range: 4.0 0 - 5.20 WBC (Bld) [#/Vol] 5.6 10*3/uL 4.4 - 11.3 [facility] Work Phone: Complete Blood Count + Differential 0.04 {x10E9/L} See Below [facility] Work Phone: Comment on above: Reference Range: 0.0 0 - 0.10 Complete Blood Count + Differential 0.27 {x10E9/L} See Below [facility] Work Phone: Comment on above: Reference Range: 0.0 0 - 0.70 Complete Blood Count + Differential 0.48 {x10E9/L} See Below [facility] Work Phone: Comment on above: Reference Range: 0.1 0 - 1.00 Complete Blood Count + Differential 1.57 {x10E9/L} See Below [facility] Work Phone: Comment on above: Reference Range: 1.2 0 - 4.80 Complete Blood Count + Differential 3.26 {x10E9/L} See Below [facility] Work Phone: Comment on above: Reference Range: 1.2 0 - 7.70 Complete Blood Count + Differential 4.8 % 0.0 - 6.0 [facility] Work Phone: Complete Blood Count + Differential 0.4 % 0.0 - 0.9 [facility] Work Phone: Comment on above: Immature Granulocyte Count (IG) includes promyelocytes, myelocytes and metamyelocytes but does not include bands. Percent differential counts (%) should be interpreted in the context of the absolute cell counts (cells/L). Complete Blood Count + Differential 0.0 {/100_WBC} 0.0-0.0 [facility] Work Phone: Covid 19 Resultson 1 SARS-CoV-2 [...] You may also be contacted by the [facility] to see if any of [...] or Naproxen (Aleve) can also be used. Lwhz-fae-xrhfwud cough and cold medicines can be used according to the instructions on the package. Some kceq-qoy-owijnvl medicines also contain acetaminophen. Make sure you [...] water are not available, use alcohol-based hand film producer. Avoid touching your eyes, nose, and mouth [...] 24 nikki (more content not included)... Normal [facility] Daily Progress Note-Shahana mason 02-08-2021 Daily Progress Note-Neurosurgery Service: Neurosurgery Subjective Data: SYED MICHELLE is a 70 year old Female who is Hospital Day # 2. Overnight Events: Patient had an uneventful night. Objective Data: Objective Information: T PRBPSpO2 [id number]/5898% Date/Time02/08 4: 4: 4: 4: 4:00 Range(36.5C - 37C ) (59 - 78 ) (12 - 26 ) (118 - 194 )/ (58 - 94 ) (95% - 100% ) Highest temp of 37 C was recorded at 02/08 0:00 Pain reported at 02/08 3:54: 3 = Mild Physical Exam by System: Neurological: AAOx3 PERRL,EOMI, FS, TM No PD R / L UE LE SILT x 4ext grossly Assessment and Plan: [...] the note. I personally evaluated the patient [id number] Electronic Signatures: Olegario Michel (Resident)) (Signed 08-Feb-2021 05:47) Authored: Service, Subjective Data, Objective Data, Assessment and Plan, Note Completion Analy Anthony) (Signed 08-Feb-2021 10:59) Authored: Note Completion Co-Signer: Service, Subjective Data, Objective Data, Assessment and Plan, Note Completion Last Updated: 08-Feb-2021 10:59 by Analy Anthony) Normal [facility] Discharge Planning Bgqe3xh 0 02-08-2021 Discharge Planning Note2 Discharge Planning: Discharge Barriers (ex. Avoidable days, wait guardianship, pt refuse leave) None Anticipated Discharge [id number] Discharge Planning 02/08/2021 @ 10:57am Transitional Care Coordination Progress Note: Patient was discussed during interdisciplinary rounds. Team members present: medical team, MD, 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, SW, PCN, and TCC. Plan per medical [...] Patient left with all belongings -Maya Roman jockey valet: Discharge Planning Assessment [id number] Discharge Planning Assessment Completed byJesenia Murphy RN Primary Contact Name and NumberDru Santana [phone] Stated Reason for AdmissionIncrease b/p and Headache [...] of Health IdentifiedNone Special ConsiderationsNone Transportation Home Indu/Viola Gonsales [facility] Services Anticipated at Transitionnone(1) Anticipated Changes Related [...] Profile - Adult v2 08-Feb-2021 00:44 Normal [facility] Discharge Uxszfnt5dx 021 Discharge Profile2 Discharge Orders: Anticipated Discharge Date: Anticipated Discharge [id number] Problem List: Admitting Dx: SDH (subdural hematoma): [...] Medical History Hospital Providers: Provider RoleProvider Name KodyfranAnaly John T DNAR: DNAR Status: none Activity: activity as [...] your legs and/or calves. Follow-Up - Neurosurgeon: Physician/Dept/Aubrey Anthony Scheduled Date/[id number] 11:15 [facility]; [facility] [address] [place], [place] Phone [phone] Comments4 week follow up visit; to have CT scan of Head prior to this appointment; Bring Insurance Card and Photo ID Follow-Up: Physician/Dept/ServiceCAT Scan of Head Scheduled Date/[id number] 09:30 [facility], Radiology Department, 1st floor Registration; [address], [place] Phone [phone] Commentsarrive 15 minutes early for registration; Bring [...] Review of Medication Reconciliation and Orders Completedby MILL DRESSER PETRA Muñoz at 08-Feb-2021 11:16:04 Electronic Signatures: Katie Stuart (THEA-SHELIA) (Signed 08-Feb-2021 11:16) Authored: Discharge Orders, Neurosurgery, Hospital Course (Home Care/Gold Form), Provider FINAL REVIEW of Orders, Gold Form - Correction Officer Reformatory Summary Last Updated: 08-Feb-2021 11:16 by Katie Stuart (MILL DRESSER-CN (more content not included)... Normal [facility] GLUCOSE-POCTon 02-08-2021 Glucose [Mass/Vol] 93 mg/dL Normal 74 - 99 [facility] Work Phone: Comment on above: Performed By: #### G KARI #### [facility] [address] [place] [address] Laboratory - Coagulationon 0 02-08-2021 aPTT Coag (PPP) [Time] 25 s 25 - 35 MG-Neurosurge [facility] Work Phone: Comment on above: THE APTT IS NO LONGE R USED FOR MONITORING UNFRACTIONATED HEPARIN THERAPY. FOR MONITORING HEPARIN THERAPY, USE THE HEPARIN ASSAY. INR Coag (PPP) [Relative time] 1.1 {INR} 0.9 - 1.1 [facility] Work Phone: PT Coag (PPP) [Time] 12.8 s See Below [facility] Work Phone: Comment on above: Reference Range: [...] COMPARISON: Outside MRI brain, 02/07/2021 ACCESSION NUMBER(S): [id number]; [id number]; [id number] ORDERING CLINICIAN: CARMEL MILES TECHNIQUE: Axial CT [...] of the head demonstrates no significant intracranial gordo (more content not included)... Normal [facility] NR CT ANGIO NECKon NR CT ANGIO NECK Patient Name: SYED MICHELLE STUDY: CT HEAD WO CONTRAST; CT ANGIO NECK; CT ANGIO HEAD W/O-W INCLUDE POST PROC; 02/08/2021 1:23 am INDICATION: eval stability of subdural hematomas, Lie Flat: Yes; spontaneous subdural hematoma, eval for vascular lesion, Lie Flat: Yes COMPARISON: Outside MRI brain, 02/07/2021 ACCESSION NUMBER(S): [id number]; [id number]; [id number] ORDERING CLINICIAN: CARMEL MILES TECHNIQUE: Axial CT [...] of the head demonstrates no significant intracranial gordo (more content not included)... Normal [facility] NR CT HEAD WO CONTRASTon NR CT HEAD WO CONTRAST Patient Name: SYED MICHELLE STUDY: CT HEAD WO CONTRAST; CT ANGIO NECK; CT ANGIO HEAD W/O-W INCLUDE POST PROC; 02/08/2021 1:23 am INDICATION: eval stability of subdural hematomas, Lie Flat: Yes; spontaneous subdural hematoma, eval for vascular lesion, Lie Flat: Yes COMPARISON: Outside MRI brain, 02/07/2021 ACCESSION NUMBER(S): [id number]; [id number]; [id number] ORDERING CLINICIAN: CARMEL MILES TECHNIQUE: Axial CT [...] of the head demonstrates no significant intracranial gordo (more content not included)... Normal [facility] Order Reconciliationon 02-08 Order Reconciliation Page 1 Discharge Reconciliation Document Reconciliation Type: Discharge requested on behalf of Katie Stuart (Advanced Practice Nurse) done by Katie Stuart ([facility]) Discharge - Reconciliation: 08-Feb-2021 11:29 by: Katie Stuart ([facility]) Discharge - Reset to Incomplete: 08-Feb-2021 11:33 by: Katie Stuart ([facility]) Discharge - Reconciliation: 08-Feb-2021 11:34 by: Katie Stuart ([facility]) Home Medications EnteredHOME MEDICATIONS AT DISCHARGE DateReconciliation [...] - Severe (more content not included)... Normal [facility] Order Reconciliation Page 1 Admission Reconciliation Document Reconciliation Type: Admission requested on behalf of Carmle Miles (Resident) done by Carmel Miles ( (Resident)) Admission - Reconciliation: 07-Feb-2021 23:34 by: Carmel Miles ( (Resident)) Home MedicationsEnteredLast Dose TakenReconciled with current Order Reconciliation Comment/ Additional Information Aspir 81 oral delayed release tablet 1 tab(s) orally once a [id number]-Feb-2021 AM Reviewed and Held atorvastatin 80 mg oral tablet 1 tab(s) orally once a [id number]-Feb-2021 PM Atorvastatin Tablet (LIPITOR)DOSE = 80 mg Oral Daily atorvastatin 80 mg oral tablet continued as the inpatient order Atorvastatin carvedilol 25 mg oral tablet 1 tab(s) orally 2 times a [id number]-Feb-2021 AM Carvedilol Tablet (COREG)DOSE = 25 mg [...] oral capsule 1 cap(s) orally once a [id number]-Feb-2021 AM FLUoxetine Capsule (PROZAC)DOSE = 20 mg Oral DailyFLUoxetine 20 mg oral capsule continued as the inpatient order FLUoxetine losartan 50 mg oral tablet 1 tab(s) orally 2 times a [id number]-[id number]-Feb-2021 AM Losartan Tablet (COZAAR)DOSE = 50 mg Oral Dailylosartan 50 mg oral tablet continued as the inpatient order Losartan magnesium oxide 400 mg (240 mg elemental magnesium) oral tablet 1 tab(s) orally once a [id number]-Vqc-8421 PM Magnesium Oxide Tablet (Mag-Ox)DOSE = 400 [...] (SENOKOT)DOSE = 2 tablet(s) Oral Daily Normal [facility] Patient Profile - Adult v2on 02-08-2021 Patient Profile - Adult v2 Profile: Initial Info: How to be AddressedPeggi Spoken Language PreferredEnglish Stated Reason for AdmissionBrain bleed Patient Belongingsremains with patient Arrived Fromspital [facility]ations [facility] Medication Dispositionbedside Are you currently using the Personal Electronic Health Record or [facility] Wants Family/Rep Notified of Admissionno Notify PCPnotify PCP Informed of Patient Visiting [facility] General Health: Weight in kg60.9 kilogram(s) Weight in tdx864.2 pound(s) Weight Methodactual (measured) Scale Typebed Height [...] Category, Unknown, Active Electronic Signatures: Maya Sanz (COLE) (Signed 08-Feb-2021 00:47) Authored: Initial Info, General Health, RSP Based Care, Substance, Health Mgmt, Relationship/Environ, Additional Information Last Updated: 08-Feb-2021 00:47 by Maya Sanz (COLE) Normal [facility] RENAL FUNCTION PANELon 02-08 Albumin [Mass/Vol] 3.9 g/dL Normal 3.4 - 5.0 [facility] Comment on above: Performed By: #### R ENAL #### [facility] [address] [place] [address] Anion gap [Moles/Vol] 14 mmol/L Normal 10 - 20 [facility] Comment on above: Performed By: #### R ENAL #### [facility] [address] [place] [address] Calcium [Mass/Vol] 9.2 mg/dL Normal 8.6 - 10.6 [facility] Comment on above: Performed By: #### R ENAL #### [facility] [address] [place] [address] Chloride [Moles/Vol] 108 mmol/L High 98 - 107 [facility] Comment on above: Performed By: #### R ENAL #### [facility] [address] [place] [address] Creatinine [Mass/Vol] 0.92 mg/dL Normal 0.50 - 1.05 [facility] Comment on above: Performed By: #### R ENAL #### [facility] [address] [place] [address] GFR- AM. >60 Normal >60 [facility] Comment on above: Result Comment: CALC ULATIONS OF ESTIMATED GFR ARE PERFORMED USING THE MDRD STUDY EQUATION FOR THE IDMS-TRACEABLE CREATININE METHODS. CLIN CHEM 2007;53:766-72 Performed By: #### R ENAL #### [facility] [address] [place] [address] GFR-NON AM. >60 Normal >60 [facility] Comment on above: Performed By: #### R ENAL #### [facility] [address] [place] [address] Glucose [Mass/Vol] 86 mg/dL Normal 74 - 99 [facility] Comment on above: Performed By: #### R ENAL #### [facility] [address] [place] [address] HCO3 (Bld) [Moles/Vol] 23 mmol/L Normal 21 - 32 [facility] Comment on above: Performed By: #### R ENAL #### [facility] [address] [place] [address] Phosphate [Mass/Vol] 4.0 mg/dL Normal 2.5 - 4.9 [facility] Comment on above: Result Comment: The performance characteristics of phosphorus testing in heparinized plasma have been validated by the individual laboratory site where testing is performed. Testing on heparinized plasma is not approved by the FDA; however, such approval is not necessary. Performed By: #### R ENAL #### [facility] [address] [place] [address] Potassium [Moles/Vol] 4.2 mmol/L Normal 3.5 - 5.3 [facility] Comment on above: Performed By: #### R ENAL #### [facility] [address] [place] [address] Sodium [Moles/Vol] 141 mmol/L Normal 136 - 145 [facility] Comment on above: Performed By: #### R ENAL #### [facility] [address] [place] [address] Urea nitrogen [Mass/Vol] 14 mg/dL Normal 6 - 23 [facility] Comment on above: Performed By: #### R ENAL #### [facility] [address] [place] [address] Renal Function Panelon 02-08 Albumin BCP dye [Mass/Vol] 3.9 g/dL 3.4 - 5.0 [facility] Work Phone: Anion gap [Moles/Vol] 14 mmol/L 10 - 20 [facility] Work Phone: [phone] Calcium [Mass/Vol] 9.2 mg/dL 8.6 - 10.6 [facility]Arash [facility] Work Phone: [phone] Chloride [Moles/Vol] 108 mmol/L above high threshold 98 - 107 [facility] Work Phone: [phone] CO2 [Moles/Vol] 23 mmol/L 21 - 32 [facility]uros urge [facility] Work Phone: [phone] Creatinine [Mass/Vol] 0.92 mg/dL See Below [facility] Work Phone: [phone] Comment on above: Reference Range: 0.5 0 - 1.05 Glucose [Mass/Vol] 86 mg/dL 74 - 99 [facility] Work Phone: Phosphate [Mass/Vol] 4.0 mg/dL 2.5 - 4.9 MG-N eurosurge [facility] Work Phone: Comment on above: The performance wilson acteristics of phosphorus testing in heparinized plasma have been validated by the individual laboratory site where testing is performed. Testing on heparinized plasma is not approved by the FDA; however, such approval is not necessary. Potassium [Moles/Vol] 4.2 mmol/L 3.5 - 5.3 [facility] Work Phone: Sodium [Moles/Vol] 141 mmol/L 136 - 145 [facility]Arash rosurge [facility] Work Phone: Urea nitrogen [Mass/Vol] 14 mg/dL 6 - 23 [facility] Work Phone: Renal Function Panel >60 >60 MG-N eurosurge [facility] Work Phone: Comment on above: CALCULATIONS OF TASHIA MATED GFR ARE PERFORMED USING THE MDRD STUDY EQUATION FOR THE IDMS-TRACEABLE CREATININE METHODS. CLIN CHEM 2007;53:766-72 URINALYSISon 02-08-2021 Appearance (U) CLEAR Normal CLEAR [facility] Comment on above: Performed By: #### U A ####[id number] [place] [address] Bilirubin Ql (U) Negative Normal NEGATIVE [facility] Comment on above: Performed By: #### U A ####[id number] [place] [address] Color (U) COLORLESS Normal STRAW,YELLO W [facility] Comment on above: Performed By: #### U A ####[id number] [place] [address] Glucose Ql (U) Negative Normal NEGATIVE [facility] Comment on above: Performed By: #### U A ####[id number] [place] [address] Hemoglobin Ql (U) Negative Normal NEGATIVE [facility] Comment on above: Performed By: #### U A ####[id number] [place] [address] Ketones Ql (U) Negative Normal NEGATIVE [facility] Comment on above: Performed By: #### U A ####[id number] [place] [address] Leukocyte esterase Test strip Ql (U) Negative Normal NEGATIVE [facility] Comment on above: Performed By: #### U A ####[id number] [place] [address] Nitrite Ql (U) Negative Normal NEGATIVE [facility] Comment on above: Performed By: #### U A ####[id number] [place] [address] pH (U) 8.0 [pH] Normal 5.0 - 8.0 [facility] Comment on above: Performed By: #### U A ####[id number] [place] [address] Protein Ql (U) Negative Normal NEGATIVE [facility] Comment on above: Performed By: #### U A ####[id number] [place] [address] Specific gravity (U) [Rel density] 1.006 Normal 1.005 - 1.035 [facility] Comment on above: Performed By: #### U A ####[id number] [place] [address] Urobilinogen (U) [Mass/Vol] mg/dL Normal 0.0 - 1.9 [facility] Comment on above: Performed By: #### U A ####[id number] [place] [address] Coronavirus 2019 RNA by PCR, Screening Asymptomticon 02-07-2021 Coronavirus 2019 RNA by PCR, Screening Asymptomtic Not detected Normal See Below [facility] Work Phone: Comment on above: SOURCE: Nasal, [...] this test method. Fact sheet for providers: www.fda.gov/media/258380/downloadFact sheet for patients: www.fda.gov/media/684930/downloadThis test has received FDA Emergency Use Authorization (EUA) and has been verified by [facility] ([facility]). This test is only authorized for the duration of time that circumstances exist to justify the authorization of the emergency use of in vitro diagnostic tests for the detection of SARS-CoV-2 virus and/or diagnosis of COVID-19 infection under section 564(b)(1) of the Act, 21 U.S.C. 360bbb-3(b)(1), unless the authorization is terminated or revoked sooner. [facility] is certified under CLIA-88 as qualified to perform high complexity testing. Testing is performed in the [facility] laboratories located at [address] [place] [address]. No Panel Informationon 02-07 [email or web address] ?RetrieveTestByDateTime?P hlrkmtCE=[id number]&Date=2 06-15-2021&Time=20%3a17%3a 49%3a00&TestType=ECG&Site =1&OutputType=PDF&Ext=PDF [facility] Work Phone: [phone] Sinus bradycardia [facility]Neur osurge [facility] Work Phone: [phone] Abnormal [facility] Work Phone: [phone] [facility] Work Phone: [phone] 1 [facility] Work Phone: [phone] 1 [facility] Work Phone: [phone] 1 [facility] Work Phone: [phone] 1 [facility] Work Phone: [phone] [facility] Work Phone: [phone] 1 [facility] Work Phone: [phone] -1 1 [facility] Work Phone: [phone] 1 [facility] Work Phone: 470 1 [facility] Work Phone: [phone] 1 [facility] Work Phone: [phone] 1 [facility] Work Phone: 194 1 [facility] Work Phone: [phone] 1 [facility] Work Phone: Urinalysison 02-07-2021 Color (U) COLORLESS See Below [facility] Work Phone: Comment on above: Reference Range: STR AW,YELLOW Glucose Ql (U) Negative NEGATIVE [facility] Work Phone: Ketones Ql (U) Negative NEGATIVE [facility] Work Phone: Leukocyte esterase Test strip Ql (U) Negative NEGATIVE [facility] Work Phone: pH (U) 8.0 [pH] 5.0 - 8.0 [facility] Work Phone: Protein (U) [Mass/Vol] Negative NEGATIVE [facility] Work Phone: RBC (U) [#/Vol] Negative NEGATIVE [facility] Work Phone: [phone] Specific gravity (U) [Rel density] 1.006 1 See Below [facility] Work Phone: Comment on above: Reference Range: 1.0 05 - 1.035 Urinalysis Negative NEGATIVE [facility] Work Phone: Urinalysis <2.0 0.0 - 1.9 [facility] Work Phone: Urinalysis CLEAR CLEAR [facility] Work Phone: APTTon 01-28-2019 aPTT Coag time (Bld) 26.1 s Normal 25.0-35.0 [facility] Comment on above: Order [...] THIS PURPOSE. Performed By: #### 5 6101, [id number] #### [facility] [address] [place] [address], [facility] BASIC METABOLIC PANELon 01-10 Calcium mass conc 9.0 mg/dL Normal 8.6-10.3 [facility] Comment on above: Order Comment: No: D o not add to previous draw Performed By: #### 3 5200, 04256, 89821 #### [facility] [address] [place] [address], [facility] Chloride molar conc 107 mmol/L Normal 98-107 [facility] Comment on above: Order Comment: No: D o not add to previous draw Performed By: #### 3 5200, 20239, 84873 #### [facility] [address] [place] [address], [place] CO2 molar conc 22 mmol/L Normal 21-31 [facility] Comment on above: Order Comment: No: D o not add to previous draw Performed By: #### 3 5200, 67534, 06250 #### [facility] [address] [place] [address], [facility] Creatinine mass conc 1.33 mg/dL High 0.60-1.20 [facility] Comment on above: Order Comment: No: D o not add to previous draw Performed By: #### 3 5200, 98068, 97874 #### [facility] [address] [place] [address], [place] GFR/1.73 sq M predicted among blacks MDRD vol rate/area (S/P/Bld) 48 ml/min/1.73sq m Abnormal >60 [facility] Comment on above: Order Comment: No: D o not add to previous draw Performed By: #### 3 5200, 62481, 07890 #### [facility] [address] [place] [address], [place] GFR/1.73 sq M predicted among non-blacks MDRD vol rate/area (S/P/Bld) 40 ml/min/1.73sq m Abnormal >60 [facility] Comment on above: Order Comment: No: D o not add to previous draw Performed By: #### 3 5199, 80252, 58381 #### [facility] [address] [place] [address], [facility] Glucose mass conc 98 mg/dL Normal 70-100 [facility] Comment on above: Order Comment: No: D o not add to previous draw Performed By: #### 3 0, 82229, 31451 #### [facility] [address] [place] [address], [place] Potassium molar conc 3.1 mmol/L Low 3.5-5.1 [facility] Comment on above: Order Comment: No: D o not add to previous draw Performed By: #### 3 5199, 16080, 64895 #### [facility] [address] [place] [address], [place] Sodium molar conc 140 mmol/L Normal 136-145 [facility] Comment on above: Order Comment: No: D o not add to previous draw Performed By: #### 3 0, 59582, 05216 #### [facility] [address] [place] [address], [place] Urea nitrogen mass conc 21 mg/dL Normal 7-25 [facility] Comment on above: Order Comment: No: D o not add to previous draw Performed By: #### 3 5199, 21220, 53325 #### [facility] [address] CBC W/DIFFon 01-28-2019 ABS BASOPHILS 0.1 10*3/uL Normal 0.0-0.2 [facility] Comment on above: Performed By: #### 5 0103 #### [facility] [address] ABS IMM GRANS 0.0 10*3/uL Normal 0.0-0.2 [facility] Comment on above: Performed By: #### 5 0103 #### [facility] [address] ABS NEUTROPHILS 5.2 10*3/uL Normal 1.6-7.6 [facility] Comment on above: Performed By: #### 5 0103 #### [facility] [address] Basophils #/vol (Bld) 0.6 % Normal 0.0-1.0 [facility] Comment on above: Performed By: #### 5 0103 #### [facility] [address] Eosinophils #/vol (Bld) 0.2 10*3/uL Normal 0.0-0.5 [facility] Comment on above: Performed By: #### 5 0103 #### [facility] [address] Eosinophils/100 WBC (Bld) 2.0 % Normal 0.0-6.0 [facility] Comment on above: Performed By: #### 5 0103 #### [facility] [address] Erythrocyte distribution width Ratio (RBC) 12.8 % Normal 11.5-15.0 [facility] Comment on above: Performed By: #### 5 0103 #### [facility] [address] [facility] [address] Hematocrit Volume Fraction (Bld) 33.7 % Low 36.0-45.0 [facility] Comment on above: Performed By: #### 5 3 #### [facility] [address] [facility] [address] Hemoglobin mass conc (Bld) 11.6 g/dL Low 12.0-15.0 [facility] Comment on above: Performed By: #### 3 #### [facility] [address] IMMATURE GRANS 0.1 % Normal 0.0-1.0 [facility] Comment on above: Performed By: #### 102 #### [facility] [address] Lymphocytes #/vol (Bld) 2.5 10*3/uL Normal 1.2-4.0 [facility] Comment on above: Performed By: #### 102 #### [facility] [address] Lymphocytes/100 WBC (Bld) 28.9 % Normal 20.0-45.0 [facility] Comment on above: Performed By: #### 3 #### [facility] [address] [facility]. [address] MCH Entitic mass (RBC) 30.0 pg Normal 27.0-33.0 [facility] Comment on above: Performed By: #### 5 3 #### [facility] [address] [place] [address], [facility] MCHC mass conc (RBC) 34.4 g/dL Normal 32.0-35.0 [facility] Comment on above: Performed By: #### 3 #### [facility] [address] MCV Entitic volume (RBC) 87.1 fL Normal 82.0-98.0 [facility] Comment on above: Performed By: #### 5 0103 #### [facility] [address] [facility] [place] [place] [address], [facility] Monocytes #/vol (Bld) 0.6 10*3/uL Normal 0.1-1.0 [facility] Comment on above: Performed By: #### 3 #### [facility] [address] [place] [address], [facility] MONOS 7.2 % Normal 5.0-12.0 [facility] Comment on above: Performed By: #### 102 #### [facility] [address] Neutrophils/100 WBC (Bld) 61.2 % Normal 40.0-72.0 [facility] Comment on above: Performed By: #### 102 #### [facility] [address] Nucleated RBC/100 WBC Ratio (Bld) 0 % Normal 0-0 [facility] Comment on above: Performed By: #### 102 #### [facility] [address] [facility] [place] [place] [address], [facility] PLAT CNT 193 10*3/uL Normal 150-400 [facility] Comment on above: Performed By: #### 102 #### [facility] [address] [place] [address], [facility] RBC #/vol (Bld) 3.87 10*6/uL Normal 3.80-5.00 [facility] Comment on above: Performed By: #### 102 #### [facility] [address] [place] [address], [facility] WBC #/vol (Bld) 8.49 10*3/uL Normal 4.00-10.60 [facility] Comment on above: Performed By: #### 5 0103 #### [facility] [address] [place] [place] [address], [facility] MAGNESIUM BLOODon 01-28-2019 Magnesium mass conc 1.9 mg/dL Normal 1.9-2.7 [facility] Comment on above: Order Comment: No: D o not add to previous draw Performed By: #### 3 5200, 84504, 68417 #### [facility] [address] [facility] [address] PROTHROMBIN TIMEon 9 INR Coag RelTime (PPP) 1.11 {INR} Normal 0.91-1.16 [facility] Comment on above: Order Comment: No: D o not add to previous draw Result Comment: ACCC P RECOMMENDED INR FOR WARFARIN THERAPY ------- ------- CONDITION INR PROPHYLAXIS OF VENOUS THROMBOSIS 2-3 (HIGH-RISK SURGERY) TREATMENT OF VENOUS THROMBOSIS 2-3 TREATMENT OF PULMONARY EMBOLISM 2-3 PREVENTION OF SYSTEMIC EMBOLISM: 2-3 ACUTE MYOCARDIAL INFARCTION TISSUE HEART VALVES VALVULAR HEART DISEASE ATRIAL FIBRILLATION RECURRENT SYSTEMIC EMBOLISM MECHANICAL HEART VALVE 2.5-3.5 FROM: ORAL ANTICOAGULANTS. MECHANISM OF ACTION, CLINICAL EFFECTIVENESS, AND OPTIMAL THERAPEUTIC RANGE. CHEST 1995;108:231S-246S. Performed By: #### 5 6101, 73160 #### [facility] [address] Prothrombin time (PT) Coag time (PPP) 14.3 s Normal 12.3-14.8 [facility] [facility] Comment on above: Order Comment: No: D o not add to previous draw Result Comment: ALL RESULTS MUST BE INTERPRETED WITH RESPECT TO BLOOD DRAWING ARTIFACT OR DILUTION ERROR OF ANTICOAGULANT AT THE TIME OF SAMPLING. Performed By: #### 5 [id number], [id number] #### [facility] [address] [place] [address], [facility] TROPONIN-Ion 01-28-2019 Troponin I.cardiac mass conc 0.01 ng/mL Normal 0.00-0.04 [facility] Comment on above: Order Comment: No: D o not add to previous draw Result Comment: REFE RENCE RANGES: 0.00 - 0.04 ng/ml NORMAL 0.05 - 0.50 ng/ml INDETERMINATE > 0.50 ng/ml CONSISTENT WITH AN M.I. Performed By: #### 3 [id number] #### [facility] [address] [place] [place] [address], [facility] Troponin I.cardiac mass conc 0.01 ng/mL Normal 0.00-0.04 [facility] Comment on above: Order Comment: No: D o not add to previous draw Result Comment: REFE RENCE RANGES: 0.00 - 0.04 ng/ml NORMAL 0.05 - 0.50 ng/ml INDETERMINATE > 0.50 ng/ml CONSISTENT WITH AN M.I. Performed By: #### 3 [id number] #### [facility] [address] [place] [address], [facility] Troponin I.cardiac mass conc 0.01 ng/mL Normal 0.00-0.04 [facility] Comment on above: Order Comment: No: D o not add to previous draw Result Comment: REFE RENCE RANGES: 0.00 - 0.04 ng/ml NORMAL 0.05 - 0.50 ng/ml INDETERMINATE > 0.50 ng/ml CONSISTENT WITH AN M.I. Performed By: #### 3 [id number], [id number] #### [facility] [address] [place] [address], [facility] Cardiovascular Lab Reporton 10-20-2018 Cardiovascular Lab Report [facility] Patient Name: Viviana [facility] MR #: [id number] Physician: Chad Barillas, Department of M.D. Medicine Service Date: 10/19/2018 Division of Birthdate: 1950 Cardiology Room #: 0 Adult Cardiovascular Services [facility] Cliff Guzman. [place] [id number] Cardiovascular Laboratory Report FINAL IMPRESSIONS: 1. Moderate [...] 4. Follow up with me in the [facility] in 3-4 weeks. 5. Follow up with Dr. Miller as scheduled. PROCEDURES: Limited femoral angiography, bilateral selective coronary angiography, intracoronary nitroglycerin administration, deployment of a 6-Greenlandic VIP Angio-Seal device. METHODS: After risks, benefits, and alternatives were explained, written informed consent was obtained. The patient was prepped and draped in usual sterile fashion over the right groin. Using 1% lidocaine solution, local infiltration anesthesia was achieved. Using a modified Seldinger technique, access to the right common femoral artery was obtained. A 6-Greenlandic 11 cm sheath was inserted without difficulty. Baseline femoral angiography was performed. Bilateral selective coronary angiography was then performed using JL4 and JR4 catheters. Dampening of pressures was noted. Subsequently, the right coronary was engaged using a 6-Greenlandic guide catheter and intracoronary nitroglycerin was administered. Repeat angiography showed resolution of the coronary spasm and normalization of the pressure tracings. At this point, it was elected to conclude the procedure. A 6-Greenlandic VIP Angio-Seal device was deployed per protocol, [...] P Chad Barillas M.D. Date Dict: 10/19/2018/10:21 Lindsay/Chad Barillas M.D. Date Trans: 10/20/2018 01:31 Parker [id number] cc: Lon Miller M.D. [address] [place] [address] Normal [facility] BASIC METABOLIC PANELon Calcium mass conc 9.2 mg/dL Normal 8.6-10.3 [facility] Comment on above: Performed By: #### 0 0071 #### [facility] [address] [place] [address], [facility] Chloride molar conc 104 mmol/L Normal 98-107 [facility] Comment on above: Performed By: #### 0 0071 #### [facility] [address] [place] [address], [facility] CO2 molar conc 24 mmol/L Normal 21-31 [facility] Comment on above: Performed By: #### 0 0071 #### [facility] [address] [place] [address], [facility] Creatinine mass conc 1.13 mg/dL Normal 0.60-1.20 [facility] Comment on above: Performed By: #### 0 0071 #### [facility] [address] [place] [address], [facility] GFR/1.73 sq M predicted among blacks MDRD vol rate/area (S/P/Bld) 59 ml/min/1.73sq m Abnormal >60 [facility] Comment on above: Performed By: #### 0 0071 #### [facility] [address] [place] [address], [facility] GFR/1.73 sq M predicted among non-blacks MDRD vol rate/area (S/P/Bld) 48 ml/min/1.73sq m Abnormal >60 [facility] Comment on above: Performed By: #### 0 0071 #### [facility] [address] [place] [address], [facility] Glucose mass conc 84 mg/dL Normal 70-100 [facility] Comment on above: Performed By: #### 0 0071 #### [facility] [address] [place] [address], [facility] Potassium molar conc 3.1 mmol/L Low 3.5-5.1 [facility] Comment on above: Performed By: #### 0 0071 #### [facility] [address] [place] [address], [facility] Sodium molar conc 141 mmol/L Normal 136-145 [facility] Comment on above: Performed By: #### 0 0071 #### [facility] [address] [place] [address], [facility] Urea nitrogen mass conc 29 mg/dL High 7-25 [facility] Comment on above: Performed By: #### 0 0071 #### [facility] [address] Vital Signs Date Time Vital Sign Value Performing Clinician Facility 08-02-2024 16:18-0400 Body height 172.72 cm MD Lon Miller Work Phone: [facility] 08-02-2024 16:18-0400 Body mass index (BMI) [Ratio] 17.8 kg/m2 MD Lon Miller Work Phone: [facility] 08-02-2024 16:18-0400 Body temperature 97.2 [degF] MD Lon Miller Work Phone: [facility] 08-02-2024 16:18-0400 Body weight 53.24 kg MD Lon Miller Work Phone: [facility] 08-02-2024 16:18-0400 Diastolic blood pressure 86 mm[Hg] MD Lon Miller Work Phone: [facility] 08-02-2024 16:18-0400 Heart rate 66 /min MD Lon Miller Work Phone: [facility] 08-02-2024 16:18-0400 Respiratory rate 18 /min MD Lon Miller Work Phone: [facility] 08-02-2024 16:18-0400 SaO2% (BldA) [Mass fraction] 99 % MD Lon Miller Work Phone: [facility] 08-02-2024 16:18-0400 Systolic blood pressure 130 mm[Hg] MD Lon Miller Work Phone: [facility] 07-12-2024 08:58-0400 Diastolic blood pressure 82 mm[Hg] Sharad Asencio [facility] 07-12-2024 08:58-0400 Heart rate 64 /min Sharad Asencio [facility] 07-12-2024 08:58-0400 Mean blood pressure 101 mm[Hg] Mohamad Mouchli [facility] 07-12-2024 08:58-0400 Respiratory rate 11 /min Mohamad Mouchli [facility] 07-12-2024 08:58-0400 SaO2% (BldA) [Mass fraction] 100 % Mohamad Mouchli [facility] 07-12-2024 08:58-0400 Systolic blood pressure 140 mm[Hg] Mohamad Mouchli [facility] 07-12-2024 08:50-0400 Diastolic blood pressure 78 mm[Hg] Mohamad Mouchli [facility] 07-12-2024 08:50-0400 Heart rate 70 /min Mohamad Mouchli [facility] 07-12-2024 08:50-0400 Mean blood pressure 94 mm[Hg] Mohamad Mouchli [facility] 07-12-2024 08:50-0400 Respiratory rate 14 /min Mohamad Mouchli [facility] 07-12-2024 08:50-0400 SaO2% (BldA) [Mass fraction] 100 % Mohamad Mouchli [facility] 07-12-2024 08:50-0400 Systolic blood pressure 125 mm[Hg] Mohamad Mouchli [facility] 07-12-2024 08:45-0400 Diastolic blood pressure 65 mm[Hg] Mohamad Mouchli [facility] 07-12-2024 08:45-0400 Heart rate 69 /min Mohamad Mouchli [facility] 07-12-2024 08:45-0400 Mean blood pressure 83 mm[Hg] Mohamad Mouchli [facility] 07-12-2024 08:45-0400 Respiratory rate 18 /min Mohamad Mouchli [facility] 07-12-2024 08:45-0400 SaO2% (BldA) [Mass fraction] 99 % Mohamad Mouchli [facility] 07-12-2024 08:45-0400 Systolic blood pressure 118 mm[Hg] Mohamad Mouchli [facility] 07-12-2024 08:43-0400 Body temperature 97.88 [degF] Mohamad Mouchli [facility] 07-12-2024 08:40-0400 Respiratory rate 20 /min Mohamad Mouchli [facility] 07-12-2024 08:35-0400 Respiratory rate 14 /min Mohamad Mouchli [facility] 07-12-2024 08:30-0400 Respiratory rate 16 /min Mohamad Mouchli [facility] 07-12-2024 07:20-0400 Blood Pressure Location Mohamad Mouchli [facility] 07-12-2024 07:20-0400 Body temperature 96.8 [degF] Mohamad Mouchli [facility] 06-30-2024 10:08-0400 Blood Pressure Location Mohamad Mouchli [facility] [place] [facility] 06-30-2024 10:08-0400 Diastolic blood pressure 79 mm[Hg] Mohamad Mouchli [facility] 06-30-2024 10:08-0400 Heart rate 52 /min Sharad Asencio [facility] 06-30-2024 10:08-0400 Systolic blood pressure 164 mm[Hg] Sharad Asencio [facility] 06-28-2024 12:32-0400 Body height 172.72 cm MD Lon Miller Work Phone: [facility] 06-28-2024 12:32-0400 Body mass index (BMI) [Ratio] 18.1 kg/m2 MD Lon Miller Work Phone: [facility] 06-28-2024 12:32-0400 Body temperature 97.3 [degF] MD Lon Miller Work Phone: [facility] 06-28-2024 12:32-0400 Body weight 54.09 kg MD Lon Miller Work Phone: [facility] 06-28-2024 12:32-0400 Diastolic blood pressure 91 mm[Hg] MD Lon Miller Work Phone: [facility] 06-28-2024 12:32-0400 Heart rate 62 /min MD Lon Miller Work Phone: [facility] 06-28-2024 12:32-0400 Respiratory rate 16 /min MD Lon Miller Work Phone: [facility] 06-28-2024 12:32-0400 SaO2% (BldA) [Mass fraction] 96 % MD Lon Miller Work Phone: [facility] 06-28-2024 12:32-0400 Systolic blood pressure 160 mm[Hg] MD Lon Miller Work Phone: [facility] 06-08-2024 17:13-0400 Body height 172.72 cm MD Lon Miller Work Phone: [facility] 06-08-2024 17:13-0400 Body mass index (BMI) [Ratio] 18.1 kg/m2 MD Lon Miller Work Phone: [facility] 06-08-2024 17:13-0400 Body temperature 97.8 [degF] MD Lon Miller Work Phone: [facility] 06-08-2024 17:13-0400 Body weight 54 kg MD Lon Miller Work Phone: [facility] 06-08-2024 17:13-0400 Diastolic blood pressure 73 mm[Hg] MD Lon Miller Work Phone: [facility] 06-08-2024 17:13-0400 Heart rate 61 /min MD Lon Miller Work Phone: [facility] 06-08-2024 17:13-0400 Respiratory rate 18 /min MD Lon Miller Work Phone: [facility] 06-08-2024 17:13-0400 SaO2% (BldA) [Mass fraction] 98 % MD Lon Miller Work Phone: [facility] 06-08-2024 17:13-0400 Systolic blood pressure 110 mm[Hg] MD Lon Miller Work Phone: [facility] 06-07-2024 10:55-0400 Body height 172.72 cm MD Lon Miller Work Phone: [facility] 06-07-2024 10:55-0400 Body mass index (BMI) [Ratio] 18.1 kg/m2 MD Lon Miller Work Phone: [facility] 06-07-2024 10:55-0400 Body weight 53.97 kg MD Lon Miller Work Phone: [facility] 06-07-2024 10:55-0400 Diastolic blood pressure 81 mm[Hg] MD Lon Miller Work Phone: [facility] 06-07-2024 10:55-0400 Heart rate 66 /min MD Lon Miller Work Phone: [facility] 06-07-2024 10:55-0400 Systolic blood pressure 134 mm[Hg] MD Lon Miller Work Phone: [facility] 05-21-2024 13:37-0400 Body height 172.72 cm [facility] 05-21-2024 13:37-0400 Body mass index (BMI) [Ratio] 18.2 kg/m2 [facility] 05-21-2024 13:37-0400 Body temperature 98.4 [degF] [facility] 05-21-2024 13:37-0400 Body weight 54.43 kg [facility] 05-21-2024 13:37-0400 Diastolic blood pressure 79 mm[Hg] [facility] 05-21-2024 13:37-0400 Heart rate 62 /min [facility] 05-21-2024 13:37-0400 Respiratory rate 16 /min [facility] 05-21-2024 13:37-0400 SaO2% (BldA) [Mass fraction] 98 % [facility] 05-21-2024 13:37-0400 Systolic blood pressure 122 mm[Hg] [facility] 04-11-2024 14:18-0400 Body height 172.72 cm [facility] 04-11-2024 14:18-0400 Body mass index (BMI) [Ratio] 18.1 kg/m2 [facility] 04-11-2024 14:18-0400 Body weight 53.97 kg [facility] 04-11-2024 14:18-0400 Diastolic blood pressure 65 mm[Hg] [facility] 04-11-2024 14:18-0400 Heart rate 69 /min [facility] 04-11-2024 14:18-0400 Systolic blood pressure 98 mm[Hg] [facility] 04-04-2024 10:28-0400 Body height 172.72 cm [facility] 04-04-2024 10:28-0400 Body mass index (BMI) [Ratio] 18.2 kg/m2 [facility] 04-04-2024 [id number] Body temperature 97.3 [degF] [facility] 04-04-2024 10:28-0400 Body weight 54.43 kg [facility] 04-04-2024 10:28-0400 Diastolic blood pressure 71 mm[Hg] [facility] 04-04-2024 10:28-0400 Heart rate 60 /min [facility] 04-04-2024 10:28-0400 Respiratory rate 18 /min [facility] 04-04-2024 10:28-0400 SaO2% (BldA) [Mass fraction] 98 % [facility] 04-04-2024 10:28-0400 Systolic blood pressure 110 mm[Hg] [facility] 03-08-2024 10:21-0400 Body height 172.72 cm [facility] 03-08-2024 10:21-0400 Body mass index (BMI) [Ratio] 18.1 kg/m2 [facility] 03-08-2024 10:21-0400 Body temperature 96.5 [degF] [facility] 03-08-2024 10:21-0400 Body weight 54.2 kg [facility] 03-08-2024 10:21-0400 Diastolic blood pressure 88 mm[Hg] [facility] 03-08-2024 10:21-0400 Heart rate 74 /min [facility] 03-08-2024 10:21-0400 Respiratory rate 16 /min [facility] 03-08-2024 10:21-0400 SaO2% (BldA) [Mass fraction] 100 % [facility] 03-08-2024 10:21-0400 Systolic blood pressure 134 mm[Hg] [facility] 02-18-2024 13:03-0400 Body height 172.7 cm Olga Farrar APRN-SHELIA Work Phone: [facility] 02-18-2024 13:03-0400 Body mass index (BMI) [Ratio] 18.4 kg/m2 Olga Griffinert 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 Work Phone: [facility] 02-18-2024 13:03-0400 Body temperature 96.3 [degF] Olga Griffinert [employer]ESS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 Work Phone: [facility] 02-18-2024 13:03-0400 Body weight 54.88 kg Olga Griffinert [employer]ESSER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 Work Phone: [facility] 02-18-2024 13:03-0400 Diastolic blood pressure 82 mm[Hg] Olga Griffinert M[employer] DRESSER[employer]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 Work Phone: [facility] 02-18-2024 13:03-0400 Heart rate 67 /min Olga Griffinert [employer]ESS[employer]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 Work Phone: [facility] 02-18-2024 13:03-0400 Respiratory rate 18 /min Olga Griffinert MILL DRESSER-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 Work Phone: [facility] 02-18-2024 13:03-0400 Systolic blood pressure 148 mm[Hg] Olga Griffinert [employer]ESS[employer]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 Work Phone: [facility] 02-04-2024 12:58-0400 Body height 172.72 cm [facility] 02-04-2024 12:58-0400 Body mass index (BMI) [Ratio] 18.2 kg/m2 [facility] 02-04-2024 12:58-0400 Body temperature 97.9 [degF] [facility] 02-04-2024 12:58-0400 Body weight 54.43 kg [facility] 02-04-2024 12:58-0400 Diastolic blood pressure 77 mm[Hg] [facility] 02-04-2024 12:58-0400 Heart rate 64 /min [facility] 02-04-2024 12:58-0400 Respiratory rate 16 /min [facility] 02-04-2024 12:58-0400 SaO2% (BldA) [Mass fraction] 99 % [facility] 02-04-2024 12:58-0400 Systolic blood pressure 128 mm[Hg] [facility] 01-22-2024 13:12-0400 Body height 172.72 cm [facility] 01-22-2024 13:12-0400 Body mass index (BMI) [Ratio] 18.3 kg/m2 [facility] 01-22-2024 13:12-0400 Body temperature 98.3 [degF] [facility] 01-22-2024 13:12-0400 Body weight 54.65 kg [facility] 01-22-2024 13:12-0400 Diastolic blood pressure 72 mm[Hg] [facility] 01-22-2024 13:12-0400 Heart rate 66 /min [facility] 01-22-2024 13:12-0400 Respiratory rate 18 /min [facility] 01-22-2024 13:12-0400 SaO2% (BldA) [Mass fraction] 96 % [facility] 01-22-2024 13:12-0400 Systolic blood pressure 118 mm[Hg] [facility] 12-24-2023 13:51-0400 Body height 172.72 cm [facility] 12-24-2023 13:51-0400 Body mass index (BMI) [Ratio] 18.3 kg/m2 [facility] 12-24-2023 13:51-0400 Body temperature 96.6 [degF] [facility] 12-24-2023 13:51-0400 Body weight 54.88 kg [facility] 12-24-2023 13:51-0400 Diastolic blood pressure 89 mm[Hg] [facility] 12-24-2023 13:51-0400 Heart rate 59 /min [facility] 12-24-2023 13:51-0400 Systolic blood pressure 162 mm[Hg] [facility] 12-17-2023 11:09-0500 Body height 172.72 cm [facility] 12-17-2023 11:09-0500 Body mass index (BMI) [Ratio] 18.4 kg/m2 [facility] 12-17-2023 11:09-0500 Body weight 55.05 kg [facility] 12-17-2023 11:09-0500 Diastolic blood pressure 76 mm[Hg] [facility] 12-17-2023 11:09-0500 Heart rate 68 /min [facility] 12-17-2023 11:09-0500 Systolic blood pressure 132 mm[Hg] [facility] 09-08-2023 10:36-0500 Blood Pressure Location Flores Lue [facility] 09-08-2023 10:36-0500 Body temperature 97.16 [degF] Flores Lue [facility] 09-08-2023 10:36-0500 Diastolic blood pressure 78 mm[Hg] Flores Lue [facility] 09-08-2023 10:36-0500 Heart rate 78 /min Flores Lue [facility] 09-08-2023 10:36-0500 Systolic blood pressure 118 mm[Hg] Flores Lue [facility] 08-18-2023 10:45-0500 Body height 172.72 cm Lon Miller Other [facility] Other 08-18-2023 10:45-0500 Body mass index (BMI) [Ratio] 18.58 kg/m2 Lon Miller Other [facility] Other 08-18-2023 10:45-0500 Body temperature 97.3 [degF] Lon Miller Other [facility] Other 08-18-2023 10:45-0500 Body weight 55.43 kg Lon Miller Other [facility] Other 08-18-2023 10:45-0500 Diastolic blood pressure 72 mm[Hg] Lon Miller Other [facility] Other 08-18-2023 10:45-0500 SaO2% (BldA) [Mass fraction] 99 % Lon Miller Other [facility] Other 08-18-2023 10:45-0500 Systolic blood pressure 110 mm[Hg] Lon Miller Other [facility] 08-11-2023 11:00-0400 Body height 172.72 cm Vladimir Areshay Other [facility] Other 08-11-2023 11:00-0400 Body mass index (BMI) [Ratio] 18.7 kg/m2 [facility] Other [facility] 08-11-2023 11:00-0400 Body temperature 97.4 [degF] [facility] Other [facility] 08-11-2023 11:00-0400 Body weight 55.79 kg [facility] Other [facility] 08-11-2023 11:00-0400 Diastolic blood pressure 70 mm[Hg] Vladimir Areshay Other [facility] 08-11-2023 11:00-0400 Respiratory rate 18 /min [facility] 08-11-2023 11:00-0400 SaO2% (BldA) [Mass fraction] 99 % Vladimir Clifton Other [facility] 08-11-2023 11:00-0400 Systolic blood pressure 120 mm[Hg] Vladimir Clifton Other [facility] Other 07-20-2023 13:25-0400 Body height 172.72 cm Mallorie Guardado Other [facility] Other 07-20-2023 13:25-0400 Body mass index (BMI) [Ratio] 18.7 kg/m2 Mallorie Guardado Other [facility] Other 07-20-2023 13:25-0400 Body temperature 98.3 [degF] Mallorie Guardado Other [facility] Other 07-20-2023 13:25-0400 Body weight 55.79 kg Mallorie Guardado Other [facility] Other 07-20-2023 13:25-0400 Diastolic blood pressure 82 mm[Hg] Mallorie Guardado Other [facility] 07-20-2023 13:25-0400 Respiratory rate 17 /min Mallorie Guardado Other [facility] 07-20-2023 13:25-0400 SaO2% (BldA) [Mass fraction] 97 % Mallorie Guardado Other [facility] 07-20-2023 13:25-0400 Systolic blood pressure 110 mm[Hg] Mallorie Guardado Other [facility] 07-14-2023 11:15-0400 Body height 172.72 cm Geneva Coats Other [facility] 07-14-2023 11:15-0400 Body mass index (BMI) [Ratio] 18.85 kg/m2 Geneva Coats Other [facility] 07-14-2023 11:15-0400 Body temperature 97.3 [degF] Geneva Coats Other [facility] 07-14-2023 11:15-0400 Body weight 56.25 kg Geneva Coats Other [facility] 07-14-2023 11:15-0400 Diastolic blood pressure 66 mm[Hg] Geneva Coats Other [facility] 07-14-2023 11:15-0400 SaO2% (BldA) [Mass fraction] 97 % Geneva Coats Other [facility] 07-14-2023 11:15-0400 Systolic blood pressure 108 mm[Hg] Geneva Coats Other [facility] 07-03-2023 11:30-0400 Body height 172.72 cm Mallorie Guardado Other [facility] Other 07-03-2023 11:30-0400 Body mass index (BMI) [Ratio] 18.64 kg/m2 Mallorie Guardado Other [facility] 07-03-2023 11:30-0400 Body temperature 98.2 [degF] Mallorie Guardado Other [facility] 07-03-2023 11:30-0400 Body weight 55.61 kg Mallorie Debby Other [facility] Other 07-03-2023 11:30-0400 Diastolic blood pressure 58 mm[Hg] Mallorie Guardado Other [facility] Other 07-03-2023 11:30-0400 Respiratory rate 18 /min Mallorie Debby Other [facility] Other 07-03-2023 11:30-0400 SaO2% (BldA) [Mass fraction] 97 % Mallorie Debby Other [facility] 07-03-2023 11:30-0400 Systolic blood pressure 90 mm[Hg] Mallorie Guardado Other [facility] Other 06-23-2023 12:45-0400 Body height 172.72 cm Teresita Ortega Other [facility] Other 06-23-2023 12:45-0400 Body mass index (BMI) [Ratio] 18.64 kg/m2 Terestia Ortega Other [facility] Other 06-23-2023 12:45-0400 Body temperature 97.7 [degF] Teresita Ortega Other [facility] Other 06-23-2023 12:45-0400 Body weight 55.61 kg Teresita Ortega Other [facility] Other 06-23-2023 12:45-0400 Diastolic blood pressure 61 mm[Hg] Teresiat Ortega Other [facility] Other 06-23-2023 12:45-0400 Respiratory rate 18 /min Teresita Ortega Other [facility] Other 06-23-2023 12:45-0400 SaO2% (BldA) [Mass fraction] 99 % Teresita Ortega Other [facility] Other 06-23-2023 12:45-0400 Systolic blood pressure 106 mm[Hg] Teresita Ortega Other [facility] Other 06-12-2023 12:25-0400 Body height 172.72 cm Lidia Clementsmond Other [facility] Other 06-12-2023 12:25-0400 Body mass index (BMI) [Ratio] 18.7 kg/m2 Lidia Agnes Other [facility] Other 06-12-2023 12:25-0400 Body temperature 98.1 [degF] Lidia Agnes Other [facility] Other 06-12-2023 12:25-0400 Body weight 55.79 kg Lidia Agnes Other [facility] Other 06-12-2023 12:25-0400 Diastolic blood pressure 82 mm[Hg] Lidia Agnes Other [facility] Other 06-12-2023 12:25-0400 Respiratory rate 18 /min Lidia Agnes Other [facility] Other 06-12-2023 12:25-0400 SaO2% (BldA) [Mass fraction] 99 % Lidia Agnes Other [facility] Other 06-12-2023 12:25-0400 Systolic blood pressure 135 mm[Hg] Lidia Alarcon Other [facility] Other 06-02-2023 11:45-0400 Body height 172.72 cm Mukesh Fam Other [facility] Other 06-02-2023 11:45-0400 Body mass index (BMI) [Ratio] 18.85 kg/m2 Mukesh Bangrer Other [facility] Other 06-02-2023 11:45-0400 Body temperature 97.6 [degF] Mukesh Fam Other [facility] Other 06-02-2023 11:45-0400 Body weight 56.25 kg Mukesh Fam Other [facility] Other 06-02-2023 11:45-0400 Diastolic blood pressure 66 mm[Hg] Mukesh Bangrer Other [facility] Other 06-02-2023 11:45-0400 SaO2% (BldA) [Mass fraction] 97 % Mukesh Bangrer Other [facility] Other 06-02-2023 11:45-0400 Systolic blood pressure 110 mm[Hg] Mukesh Jonesehrer Other [facility] Other 05-26-2023 11:15-0400 Body height 172.72 cm Lon Miller Other [facility] Other 05-26-2023 11:15-0400 Body mass index (BMI) [Ratio] 18.85 kg/m2 Lon Miller Other [facility] Other 05-26-2023 11:15-0400 Body weight 56.25 kg Lon Miller Other [facility] Other 05-26-2023 11:15-0400 Diastolic blood pressure 71 mm[Hg] Lon Miller Other [facility] Other 05-26-2023 11:15-0400 Systolic blood pressure 118 mm[Hg] Lon Miller Other [facility] Other 04-29-2023 14:20-0400 Body height 172.72 cm Mallorie Guardado Other [facility] Other 04-29-2023 14:20-0400 Body mass index (BMI) [Ratio] 18.85 kg/m2 Mallorie Guardado Other [facility] Other 04-29-2023 14:20-0400 Body temperature 98.3 [degF] Mallorie Guardado Other [facility] Other 04-29-2023 14:20-0400 Body weight 56.25 kg Mallorie Guardado Other [facility] Other 04-29-2023 14:20-0400 Diastolic blood pressure 77 mm[Hg] Mallorie Guardado Other [facility] Other 04-29-2023 14:20-0400 Respiratory rate 18 /min Mallorie Guardado Other [facility] Other 04-29-2023 14:20-0400 SaO2% (BldA) [Mass fraction] 98 % Mallorie Guardado Other [facility] Other 04-29-2023 14:20-0400 Systolic blood pressure 127 mm[Hg] Mallorie Guardado Other [facility] Other 04-17-2023 09:00-0400 Body height 172.72 cm Lon Miller Other [facility] Other 04-17-2023 09:00-0400 Body mass index (BMI) [Ratio] 18.91 kg/m2 Lon Miller Other [facility] Other 04-17-2023 09:00-0400 Body weight 56.43 kg Lon Miller Other [facility] Other 04-17-2023 09:00-0400 Diastolic blood pressure 81 mm[Hg] Lon Miller Other [facility] Other 04-17-2023 09:00-0400 Systolic blood pressure 134 mm[Hg] Lon Miller Other [facility] Other 03-17-2023 13:30-0400 Body height 172.72 cm Teresita Otrega Other [facility] Other 03-17-2023 13:30-0400 Body mass index (BMI) [Ratio] 19.1 kg/m2 Teresita Jordan Other [facility] Other 03-17-2023 13:30-0400 Body temperature 98.2 [degF] Teresita Ortega Other [facility] Other 03-17-2023 13:30-0400 Body weight 56.97 kg Teresita Ortega Other [facility] Other 03-17-2023 13:30-0400 Respiratory rate 18 /min Teresita Ortega Other [facility] Other 03-17-2023 13:30-0400 SaO2% (BldA) [Mass fraction] 97 % Teresita Ortega Other [facility] Other 02-04-2023 10:40-0400 Body height 172.72 cm Azmalick Trumakers Other [facility] Other 02-04-2023 10:40-0400 Body mass index (BMI) [Ratio] 19.1 kg/m2 Azmalick Trumakers Other [facility] Other 02-04-2023 10:40-0400 Body temperature 97.3 [degF] Aziz Trumakers Other [facility] Other 02-04-2023 10:40-0400 Body weight 56.97 kg Aziz Bakhous Other [facility] Other 02-04-2023 10:40-0400 Diastolic blood pressure 88 mm[Hg] Aziz Bakhous Other [facility] Other 02-04-2023 10:40-0400 Respiratory rate 18 /min Aziz Trumakers Other [facility] Other 02-04-2023 10:40-0400 SaO2% (BldA) [Mass fraction] 99 % Aziz Bakhous Other [facility] Other 02-04-2023 10:40-0400 Systolic blood pressure 149 mm[Hg] Vladimir Clifton Other [facility] Other 12-18-2022 14:15-0500 Body height 172.72 cm Lon Miller Other [facility] Other 12-18-2022 14:15-0500 Body mass index (BMI) [Ratio] 19 kg/m2 Lon Miller Other [facility] Other 12-18-2022 14:15-0500 Body weight 56.7 kg Lon Miller Other [facility] Other 12-18-2022 14:15-0500 Diastolic blood pressure 66 mm[Hg] Lon Miller Other [facility] Other 12-18-2022 14:15-0500 SaO2% (BldA) [Mass fraction] 99 % Lon Miller Other [facility] Other 12-18-2022 14:15-0500 Systolic blood pressure 120 mm[Hg] Lon Miller Other [facility] Other 10-19-2022 12:00-0500 Body height 172.72 cm Lidia Alarcon Other [facility] Other 10-19-2022 12:00-0500 Body mass index (BMI) [Ratio] 19.16 kg/m2 Lidia Alarcon Other [facility] Other 10-19-2022 12:00-0500 Body temperature 97.3 [degF] Lidia Alarcon Other [facility] Other 10-19-2022 12:00-0500 Body weight 57.15 kg Lidia Alarcon Other [facility] Other 10-19-2022 12:00-0500 Diastolic blood pressure 79 mm[Hg] Lidia Alarcon Other [facility] Other 10-19-2022 12:00-0500 Respiratory rate 16 /min Lidia Alarcon Other [facility] Other 10-19-2022 12:00-0500 SaO2% (BldA) [Mass fraction] 100 % Lidia Alarcon Other [facility] Other 10-19-2022 12:00-0500 Systolic blood pressure 123 mm[Hg] Lidia Alarcon Other [facility] Other 10-08-2022 13:15-0500 Body height 172.72 cm Teresita Garrettler Other [facility] Other 10-08-2022 13:15-0500 Body mass index (BMI) [Ratio] 19.16 kg/m2 Teresita Garrettler Other [facility] Other 10-08-2022 13:15-0500 Body temperature 97.5 [degF] Teresita Ortega Other [facility] Other 10-08-2022 13:15-0500 Body weight 57.15 kg Teresita Ortega Other [facility] Other 10-08-2022 13:15-0500 Respiratory rate 18 /min Teresita Ortega Other [facility] Other 10-08-2022 13:15-0500 SaO2% (BldA) [Mass fraction] 99 % Teresita Ortega Other [facility] Other 10-06-2022 18:30-0500 Body height 172.72 cm Nieves Jiménez Other [facility] Other 10-06-2022 18:30-0500 Body mass index (BMI) [Ratio] 19.28 kg/m2 Nieves Jiménez Other [facility] Other 10-06-2022 18:30-0500 Body temperature 97.7 [degF] Nieves Jiménez Other [facility] Other 10-06-2022 18:30-0500 Body weight 57.52 kg Nieves Jiménez Other [facility] Other 10-06-2022 18:30-0500 Diastolic blood pressure 89 mm[Hg] Nieves Jiménez Other [facility] Other 10-06-2022 18:30-0500 Respiratory rate 18 /min Nieves Jiménez Other [facility] Other 10-06-2022 18:30-0500 SaO2% (BldA) [Mass fraction] 100 % Nieves Jiménez Other [facility] Other 10-06-2022 18:30-0500 Systolic blood pressure 160 mm[Hg] Nieves Jiménez Other [facility] Other 08-07-2022 11:20-0400 Body height 172.72 cm Vladimir Clifton Other [facility] Other 08-07-2022 11:20-0400 Body mass index (BMI) [Ratio] 18.73 kg/m2 lVadimir Clifton Other [facility] Other 08-07-2022 11:20-0400 Body temperature 96.3 [degF] Vladimir Clifton Other [facility] Other 08-07-2022 11:20-0400 Body weight 55.88 kg Vladimir Clifton Other [facility] Other 08-07-2022 11:20-0400 Diastolic blood pressure 84 mm[Hg] Vladimir Clifton Other [facility] Other 08-07-2022 11:20-0400 Respiratory rate 18 /min Vladimir Clifton Other [facility] Other 08-07-2022 11:20-0400 SaO2% (BldA) [Mass fraction] 99 % Vladimir Clifton Other [facility] Other 08-07-2022 11:20-0400 Systolic blood pressure 139 mm[Hg] Vladimir Clifton Other [facility] Other 06-02-2022 12:15-0400 Body height 172.72 cm Teresita Garrettler Other [facility] Other 06-02-2022 12:15-0400 Body mass index (BMI) [Ratio] 19 kg/m2 Teresita Ortega Other [facility] Other 06-02-2022 12:15-0400 Body temperature 98 [degF] Teresita Ortega Other [facility] Other 06-02-2022 12:15-0400 Body weight 56.7 kg Teresita Ortega Other [facility] Other 06-02-2022 12:15-0400 Respiratory rate 18 /min Teresita Ortega Other [facility] Other 06-02-2022 12:15-0400 SaO2% (BldA) [Mass fraction] 97 % Teresita Ortega Other [facility] Other 04-11-2022 16:15-0400 Body height 172.72 cm Lidia Clementsmond Other [facility] Other 04-11-2022 16:15-0400 Body mass index (BMI) [Ratio] 20.98 kg/m2 Lidia Clementsmond Other [facility] Other 04-11-2022 16:15-0400 Body temperature 98.7 [degF] Lidia Clementsmond Other [facility] Other 04-11-2022 16:15-0400 Body weight 62.6 kg Lidia Clementsmond Other [facility] Other 04-11-2022 16:15-0400 SaO2% (BldA) [Mass fraction] 97 % Lidia Clementsmond Other [facility] Other 12-24-2021 12:44-0400 Body height 172.7 cm Ashanti Foote MD Work Phone: [facility] 12-24-2021 12:44-0400 Body weight 58.97 kg Ashanti Foote MD Work Phone: [facility] 12-24-2021 12:44-0400 Diastolic blood pressure 88 mm[Hg] Ashanti Foote MD Work Phone: [facility] 12-24-2021 12:44-0400 Heart rate 65 /min Ashanti Foote MD Work Phone: [facility] 12-24-2021 12:44-0400 Systolic blood pressure 151 mm[Hg] Ashanti Foote MD Work Phone: [facility] 12-10-2021 14:40-0500 Body height 172.72 cm Vladimir Nemesios Other [facility] Other 12-10-2021 14:40-0500 Body mass index (BMI) [Ratio] 19.79 kg/m2 Vladimir Herrs Other [facility] Other 12-10-2021 14:40-0500 Body weight 59.06 kg Vladimir Herrs Other [facility] Other 12-10-2021 14:40-0500 Diastolic blood pressure 76 mm[Hg] Vladimir Herrs Other [facility] Other 12-10-2021 14:40-0500 Respiratory rate 16 /min Vladimir Herrs Other [facility] Other 12-10-2021 14:40-0500 SaO2% (BldA) [Mass fraction] 99 % Vladimir Herrs Other [facility] Other 12-10-2021 14:40-0500 Systolic blood pressure 130 mm[Hg] Azmalick Herrs Other [facility] Other 10-01-2021 12:20-0500 Body height 172.72 cm Loi Buenrostro Other [facility] Other 10-01-2021 12:20-0500 Body mass index (BMI) [Ratio] 19.86 kg/m2 Loi Buenrostro Other [facility] Other 10-01-2021 12:20-0500 Body weight 59.24 kg Loi Buenrostro Other [facility] Other 10-01-2021 12:20-0500 Diastolic blood pressure 90 mm[Hg] Loi Buenrostro Other [facility] Other 10-01-2021 12:20-0500 Respiratory rate 18 /min Loi Buenrostro Other [facility] Other 10-01-2021 12:20-0500 SaO2% (BldA) [Mass fraction] 99 % Loi Buenrostro Other [facility] Other 10-01-2021 12:20-0500 Systolic blood pressure 164 mm[Hg] Loi Buenrostro Other [facility] Other 04-02-2021 11:13-0400 Body height 172.72 cm Lon Miller Work Phone: [facility] Work Phone: 04-02-2021 11:13-0400 Body mass index (BMI) [Ratio] 20.53 kg/m2 Lon Miller Work Phone: LQ-Mcgrbhaldqns-Qwno a Work Phone: 04-02-2021 11:13-0400 Body surface area Derived from formula 1.73 m2 Lon Miller Work Phone: UZ-Jqffqcxknwto-Bpvj a Work Phone: 04-02-2021 11:13-0400 Body weight 61.24 kg Lon Miller Work Phone: OA-Ketovsyoxxuo-Pfyh a Work Phone: 04-02-2021 11:13-0400 Respiratory rate 14 /min Lon Miller Work Phone: LY-Bfidqlgtawpx-Mjpg a Work Phone: 04-02-2021 11:13-0400 0 1 Lon Miller Work Phone: HQ-Zxefiahicvda-Kxtg a Work Phone: Comment on above: [employer] 03-05-2021 11:31-0400 Body height 172.72 cm Referring Provider Unknown CW-Zjtccbanhyaa-Htqp a Work Phone: 03-05-2021 11:31-0400 Body mass index (BMI) [Ratio] 20.53 kg/m2 Referring Provider Unknown KJ-Rrakeamjvunf-Ybcf a Work Phone: 03-05-2021 11:31-0400 Body surface area Derived from formula 1.73 m2 Referring Provider Unknown VG-Meqchpuhgcrk-Rjwi a Work Phone: 03-05-2021 11:31-0400 Body weight 61.24 kg Referring Provider Unknown SL-Zlftxzewqmze-Zwte a Work Phone: 03-05-2021 11:31-0400 Diastolic blood pressure 90 mm[Hg] Referring Provider Unknown FV-Vxqnmixitgad-Msvb a Work Phone: 03-05-2021 11:31-0400 Respiratory rate 14 /min Referring Provider Unknown WK-Jzlsnyonzsym-Rbbl a Work Phone: 03-05-2021 11:31-0400 Systolic blood pressure 183 mm[Hg] Referring Provider Unknown BS-Qadmwfahspjb-Okxu a Work Phone: 03-05-2021 11:31-0400 0 1 Referring Provider Unknown ZQ-Thmdkqnityhe-Izeg a Work Phone: Comment on above: [employer] 02-08-2021 18:00-0400 Body temperature 97.7 [degF] Pcp Unknown [facility] 02-08-2021 18:00-0400 Diastolic blood pressure 78 mm[Hg] Pcp Unknown [facility] 02-08-2021 18:00-0400 Heart rate 61 /min Pcp Unknown [facility] 02-08-2021 18:00-0400 Respiratory rate 15 /min Pcp Unknown [facility] 02-08-2021 18:00-0400 SaO2% (BldA) [Mass fraction] 99 % Pcp Unknown [facility] 02-08-2021 18:00-0400 Systolic blood pressure 143 mm[Hg] Pcp Unknown [facility] 02-08-2021 02:44-0400 Body height 167.6 cm Pcp Unknown [facility] 02-08-2021 02:44-0400 Body weight 60.9 kg Pcp Unknown [facility] Encounters Encounter Date Encounter Type Care Provider Facility Start: 08-02-2024 End: 08-02-2024 Departed Referred MD Lon Miller Work Phone: [facility] [place] Work Phone: Start: 08-02-2024 End: 08-02-2024 ambulatory MD Lon Miller Work Phone: [facility] Work Phone: Start: 08-02-2024 End: 08-02-2024 Patient encounter procedure MD Lon Miller Work Phone: [facility] [place] Work Phone: Start: 07-12-2024 End: 07-12-2024 ambulatory Sharad Asencio Facility:[facility] Start: 07-12-2024 End: 07-12-2024 Patient encounter procedure Sharad Asencio [facility] Start: 06-30-2024 End: 06-30-2024 ambulatory Sharad Asencio Facility:[facility] Start: 06-30-2024 End: 06-30-2024 Patient encounter procedure Sharad Asencio [facility] Start: 06-28-2024 End: 06-28-2024 Departed Referred MD Lon Miller Work Phone: [facility] [place] Work Phone: Start: 06-28-2024 End: 06-28-2024 ambulatory MD Lon Miller Work Phone: [facility] Work Phone: Start: 06-28-2024 End: 06-28-2024 Patient encounter procedure MD Lon Miller Work Phone: [facility] [place] Work Phone: Start: 06-08-2024 End: 06-08-2024 ambulatory MD Lon Miller Work Phone: [facility] Work Phone: Start: 06-08-2024 End: 06-08-2024 Patient encounter procedure MD Lon Miller Work Phone: [facility] [place] Work Phone: Start: 06-07-2024 End: 06-07-2024 ambulatory MD Lon Miller Work Phone: [facility] Work Phone: Start: 06-07-2024 End: 06-07-2024 Patient encounter procedure MD Lon Miller Work Phone: [facility] Work Phone: Start: 05-21-2024 End: 05-21-2024 Patient encounter procedure MD Lon Miller Work Phone: [facility] [place] Work Phone: Start: 05-21-2024 End: 05-21-2024 ambulatory MD Lon Miller Work Phone: [facility] Work Phone: Start: 05-21-2024 End: 05-21-2024 ambulatory [facility] Work Phone: Start: 05-21-2024 End: 05-21-2024 Patient encounter procedure [facility] [place] Work Phone: Start: 04-11-2024 End: 04-11-2024 ambulatory [facility] Work Phone: Start: 04-11-2024 End: 04-11-2024 Patient encounter procedure [facility] Work Phone: Start: 04-04-2024 End: 04-04-2024 ambulatory [facility] Work Phone: Start: 04-04-2024 End: 04-04-2024 Patient encounter procedure [facility] [place] Work Phone: Start: 03-08-2024 End: 03-08-2024 ambulatory [facility] Work Phone: Start: 03-08-2024 End: 03-08-2024 Patient encounter procedure [facility] [place] Work Phone: Start: 03-01-2024 Non-patient / Non-visit [facility] Work Phone: Start: 02-18-2024 End: 02-19-2024 ambulatory OLGA FARRAR [facility] Start: 02-18-2024 End: 02-18-2024 Office outpatient new 20 minutes Olga Farrar 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 Work Phone: [facility] Nesbtit Comment on above: Cerebral cavernoma ( HHS-HCC) (Primary Dx) Start: 02-04-2024 End: 02-04-2024 ambulatory [facility] Work Phone: Start: 02-04-2024 End: 02-04-2024 Patient encounter procedure [facility] [place] Work Phone: Start: 01-27-2024 End: 01-28-2024 ambulatory [facility] Start: 01-27-2024 End: 01-27-2024 Subsequent hospital visit by physician Rad External Film EF RAD EXTERNAL FILM VIRTUAL Comment on above: Arrived Start: 01-22-2024 End: 01-22-2024 ambulatory [facility] Work Phone: Start: 01-22-2024 End: 01-22-2024 Patient encounter procedure [facility] [place] Work Phone: Start: 12-24-2023 End: 12-24-2023 ambulatory [facility] Work Phone: Start: 12-24-2023 End: 12-24-2023 Patient encounter procedure [facility] Work Phone: Start: 12-17-2023 End: 12-17-2023 Patient encounter procedure [facility] Work Phone: Start: 11-09-2023 End: 11-09-2023 ambulatory [facility] Start: 10-08-2023 ambulatory [facility] Facility:[facility] Start: 09-10-2023 Nursing evaluation o f patient and report Lon Miller [facility] Start: 09-10-2023 End: 09-10-2023 ambulatory MD Lon Miller Work Phone: [facility] Other Start: 09-10-2023 End: 09-10-2023 Departed Referred MD Lon Miller Work Phone: [facility] [place] Work Phone: Start: 09-08-2023 End: 09-08-2023 ambulatory AZIZ BAKHOUS Facility: [place] Start: 09-08-2023 End: 09-08-2023 Patient encounter procedure Flores Marie [facility] Start: 08-27-2023 End: 08-27-2023 ambulatory Aziz Bakhous Other [facility] Other Start: 08-27-2023 Telephone encounter Azmalick Herrs [facility] Start: 08-18-2023 End: 08-18-2023 ambulatory Lon Miller Other [facility] Other Start: 08-18-2023 Office outpatient vi sit 15 minutes Lon Miller [facility] Start: 08-11-2023 End: 08-11-2023 ambulatory Azmalick Conenrhous Other [facility] Other Start: 08-11-2023 Office outpatient vi sit 25 minutes Aziz Bakhous [facility] [place] Start: 07-20-2023 End: 07-20-2023 ambulatory Mallorie Guardado Other [facility] Other Start: 07-20-2023 Office outpatient vi sit 15 minutes Mallorie Guardado [facility] [place] Start: 07-20-2023 Telephone encounter Lon Miller [facility] [place] Start: 07-14-2023 End: 07-14-2023 ambulatory Geneva Coats Other [facility] Other Start: 07-14-2023 Patient encounter procedure Geneva Coats [facility] Start: 07-06-2023 End: 07-06-2023 ambulatory MD Lon Miller Work Phone: [facility] Work Phone: Start: 07-06-2023 End: 07-06-2023 Patient encounter procedure MD Lon Miller Work Phone: [facility] [place] Work Phone: Start: 07-04-2023 End: 07-04-2023 ambulatory Lon Miller Other [facility] Other Start: 07-04-2023 Telephone encounter Lon Miller [facility] [place] Start: 07-03-2023 End: 07-03-2023 ambulatory Mallorie Guardado Other [facility] Other Start: 07-03-2023 Office outpatient vi sit 15 minutes Mallorie Guardado [facility] [place] Start: 06-23-2023 End: 06-23-2023 ambulatory Teresita Ortega Other [facility] Other Start: 06-23-2023 Office outpatient vi sit 25 minutes Teresita Ortega [facility] [place] Start: 06-12-2023 End: 06-12-2023 ambulatory Lidiaramiro Alarcon Other [facility] Other Start: 06-12-2023 Office outpatient vi sit 15 minutes Lidia Agnes [facility] [place] Start: 06-02-2023 End: 06-02-2023 ambulatory Mukesh Fam Other [facility] Other Start: 06-02-2023 Office outpatient ne w 45 minutes Mukesh Fam [facility] Start: 06-02-2023 Telephone encounter Mukesh Fam [facility] Start: 05-27-2023 End: 05-27-2023 ambulatory Lon Miller Other [facility] Other Start: 05-27-2023 Telephone encounter Lon Miller [facility] Start: 05-26-2023 End: 05-26-2023 ambulatory Lon Miller Other [facility] Other Start: 05-26-2023 Office outpatient vi sit 15 minutes Lon Miller [facility] Start: 04-29-2023 End: 04-29-2023 ambulatory Mallorie Guardado Other [facility] Other Start: 04-29-2023 Office outpatient vi sit 15 minutes Mallorie Guardado [facility] [place] Start: 04-17-2023 End: 04-17-2023 ambulatory Lon Miller Other [facility] Other Start: 04-17-2023 Office outpatient vi sit 15 minutes Lon Miller [facility] Start: 04-17-2023 Telephone encounter Lon Miller [facility] Start: 03-17-2023 End: 03-17-2023 ambulatory Teresita Ortega Other [facility] Other Start: 03-17-2023 Office outpatient vi sit 25 minutes Teresita Ortega [facility] [place] Start: 02-04-2023 End: 02-04-2023 ambulatory Azmalick Herrs Other [facility] Other Start: 02-04-2023 Office outpatient vi sit 25 minutes Aziz Bakhous [facility] Start: 01-26-2023 End: 01-27-[address] LON MILLER Facility:[facility] Start: 01-19-2023 End: 01-19-2023 ambulatory Lon Miller Other [facility] Other Start: 01-19-2023 Telephone encounter Lon Miller [facility] Start: 12-23-2022 End: 12-24-[address] LON MILLER [facility] Other Start: 12-23-2022 Telephone encounter Lon Miller [facility] Start: 12-18-2022 End: 12-18-2022 ambulatory Lon Miller Other [facility] Other Start: 12-18-2022 Office outpatient vi sit 15 minutes Lon Miller [facility] Start: 12-05-2022 End: 12-05-2022 ambulatory IVETTE AIKEN [facility] Start: 12-01-2022 End: 12-02-[address] LON MILLER Facility:[facility] Start: 10-27-2022 End: 10-28-[address] LON MILLER Facility:[facility] Start: 10-20-2022 End: 10-21-[address] LON MILLER Facility:[facility] Start: 10-19-2022 End: 10-19-2022 ambulatory Lidia Alarcon Other [facility] Other Start: 10-19-2022 Office outpatient vi sit 25 minutes Lidiaramrio Alarcon [facility] [place] Start: 10-08-2022 End: 10-08-2022 ambulatory Teresita Ortega Other [facility] Other Start: 10-08-2022 Office outpatient vi sit 25 minutes Teresita Jordan [facility] [place] Start: 10-06-2022 End: 10-06-2022 ambulatory Nieves Jiménez Other [facility] Other Start: 10-06-2022 Office outpatient vi sit 15 minutes Nieves Jessy [facility] [place] Start: 08-28-2022 End: 08-28-2022 ambulatory SINTIA VO Facility:[facility] Start: 08-07-2022 End: 08-07-2022 ambulatory Aziz Bakhous Other [facility] Other Start: 08-07-2022 Office outpatient vi sit 15 minutes Aziz Bakhous [facility] Start: 06-02-2022 End: 06-02-2022 ambulatory Teresita Ortega Other [facility] Other Start: 06-02-2022 Office outpatient vi sit 25 minutes Teresita Ortega [facility] [address] [facility] Start: 05-12-2022 End: 05-13-[address] DOCTOR WASHINGTON Facility:[facility] Start: 04-11-2022 End: 04-11-2022 ambulatory Lidia Alarcon Other [facility] Other Start: 04-11-2022 Office outpatient vi sit 15 minutes Lidia Alarcon [facility] [place] Start: 03-16-2022 ambulatory Ashanti Brooks Work Phone: Endocrinology Comment on above: Bp Start: 03-08-2022 End: 03-08-2022 ambulatory MEDINA CHAPMAN . Facility:[facility] Start: 02-12-2022 ambulatory Ashanti Brooks Work Phone: Endocrinology Comment on above: results Start: 02-12-2022 E-mail encounter fro m caregiver Ashanti Foote MD Work Phone: [facility] Start: 02-10-2022 ambulatory Ashanti Brooks Work Phone: Endocrinology Comment on above: Recent tests Start: 01-10-2022 End: 01-10-2022 ambulatory Rene Irwin Other [facility] Other Start: 01-10-2022 Telephone encounter Rene Irwin [facility] Start: 01-09-2022 ambulatory Ashanti Brooks Work Phone: Endocrinology Comment on above: More tests Start: 01-01-2022 ambulatory Ashanti Brooks Work Phone: Endocrinology Comment on above: results from test Start: 01-01-2022 Telephone encounter Ashanti aleajndra MD Work Phone: Endocrinology Comment on above: Received Outside [facility] Records (Referral Documents ) Start: 12-24-2021 End: 12-24-2021 Patient encounter procedure Ashanti Foote MD Work Phone: Endocrinology Comment on above: Aldosteronism (HCC) (Primary Dx); Hypertensive heart disease without heart failure Start: 12-10-2021 End: 12-10-2021 ambulatory Azmalick Herrs Other [facility] Other Start: 12-10-2021 Office outpatient vi sit 25 minutes Aziz Bakhous [facility] Start: 11-18-2021 End: 11-18-2021 ambulatory Aziz Bakhous Other [facility] Other Start: 11-18-2021 Telephone encounter Aziz Bakhous [facility] Start: 10-01-2021 End: 10-01-2021 ambulatory Essam Elashi Other [facility] Other Start: 10-01-2021 Office outpatient vi sit 25 minutes Essam Elashi [facility] Start: 09-16-2021 End: 09-16-2021 ambulatory Christian Valdez Other [facility] Other Start: 09-16-2021 Office outpatient vi sit 5 minutes Christian Valdez [facility] Start: 04-02-2021 Patient encounter procedure Lon Miller Work Phone: NG-Eewgyexbqcft-Zmyzs Work Phone: Start: 03-05-2021 Patient encounter procedure Referring Provider Unknown RG-Gkyfxupmwufz-Pwski Work Phone: Start: 02-08-2021 AUDIT Lon Miller Work Phone: WH-Yqrikzsuritd-Cdwrv Work Phone: Start: 02-07-2021 End: 02-08-2021 Evaluation and management of inpatient Analy [facility] Kaylee [id number] Rm [id number] Start: 01-28-2019 End: 01-28-2019 Patient encounter procedure GIO JAVED Facility:[facility] Start: 10-21-2018 End: 10-22-2018 Patient encounter procedure DEFAULT PHYSICIAN Facility:[facility] Start: 10-19-2018 End: 10-20-2018 Patient encounter procedure CHAD BARILLAS Facility:[facility] Start: 10-15-2018 End: 10-16-2018 Patient encounter procedure DEFAULT PHYSICIAN Facility:[facility] Start: 09-29-2018 End: 09-30-2018 Patient encounter procedure DEFAULT PHYSICIAN Facility:[facility] Start: 09-24-2018 End: 2018 Patient encounter procedure DEFAULT PHYSICIAN Facility:[facility] Procedures Date Procedure Procedure Detail Performing Clinician Start: 07-12-2024 Colonoscopy Wernerade cee Start: 06-28-2024 Quick Strep (POC) MD Alex Miller Work Phone: Start: 06-28-2024 Throat culture MD Bailee Miller Work Phone: Start: 06-08-2024 Quick Strep (POC) MD Alex Miller Work Phone: Start: 05-21-2024 Quick Strep (POC) Start: 05-21-2024 Throat culture MD Bailee Miller Work Phone: Start: 04-04-2024 Quick Strep (POC) Start: 02-04-2024 Quick Strep (POC) Start: 01-27-2024 MR TRANSFER OF OUTSIDE FILMS GERMAN WORRELL Start: 01-27-2024 Study Interpretation of outside study German Worrell MD Work Phone: Start: 01-22-2024 Quick Strep (POC) Start: 07-06-2023 Doppler ultrasonogra phy of kidney MD Lon Miller Work Phone: Start: 02-07-2021 End: 02-08-2021 EKG impression Carmel Defta Start: 06-03-2019 Adult depression scr eening assessment Ashanti Foote MD Work Phone: Cholecystectomy Flores Marie Colonoscope, device (physical object) Flores Marie Depression screening Lon Miller Other Excision of breast tissue Ka mary Marie Hysterectomy Floresjazmyn Marie Plan of Treatment Date Care Activity Detail Author Start: 02-04-2025 DIABETES SCREEN DIABETES SCREEN [facility] Start: 12-24-2024 DIABETES SCREEN DIABETES SCREEN [facility] Start: 08-02-2024 Bacteria identified in Throat by Aerobe culture [facility] Start: 08-02-2024 Throat culture Throat Culture [facility] Start: 06-28-2024 Throat culture Throat Culture [facility] Start: 06-28-2024 Bacteria identified in Throat by Aerobe culture [facility] Start: 06-12-2024 Influenza vaccination Influenz a Vaccine (Season Ended) [facility] Start: 05-21-2024 Bacteria identified in Throat by Aerobe culture [facility] Start: 05-21-2024 Throat culture Throat Culture [facility] Start: 02-18-2024 End: 02-18-2024 Patient encounter procedure 02/18/2024 1:00 PM EDT Office Visit [facility] [address] [place] [address] Olga Farrar, MILL DRESSER[employer]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 [address] Katerin Guzman Department of [place]rological [place] [address] [facility] Start: 12-31-2023 Patient referral [facility] Work Phone: Start: 09-10-2023 Bacteria identified in Urine by Culture [facility] Start: 06-12-2023 COVID-19 Vaccine ( season) COVID-19 Vaccine ( season) [facility] Start: 06-12-2022 Influenza vaccination INFLUENZ A (Season Ended) [facility] Start: 01-17-2022 End: 03-19-2022 ALDOSTERONE/DIRECT RENIN RATIO ALDOSTERONE/DIRECT RENIN RATIO Lab Routine Fatigue, unspecified type Expected: 01/17/2022, Expires: 03/19/2022 [facility] Work Phone: Comment on above: Expected: 01/17/2022 , Expires: 03/19/2022 Start: 01-17-2022 End: 03-19-2022 Comprehensive metabolic 2000 panel - Serum or Plasma COMP METABOLIC PANEL Lab Routine Fatigue, unspecified type Expected: 01/17/2022, Expires: 03/19/2022 [facility] Work Phone: Comment on above: Expected: 01/17/2022 , Expires: 03/19/2022 Start: 12-24-2021 End: 02-23-2022 ALDOSTERONE/DIRECT RENIN RATIO [facility] Work Phone: Comment on above: Expected: 12/24/2021 , Expires: 02/23/2022 Start: 10-12-2021 ADVANCE DIRECTIVE DISCUSSION ADVANCE DIRECTIVE DISCUSSION [facility] Start: 06-12-2021 Influenza vaccination INFLUENZA (#1) [facility] Start: 03-05-2021 Patient encounter procedure [facility] Start: 03-05-2021 Patient encounter procedure [facility] Start: 02-08-2021 End: 02-08-2022 Atorvastatin 80 mg Oral Tablet Daily ; Tablet (LIPITOR)DOSE = 80 mg Oral Daily Start: 07-Feb-2021 End: 07-Feb-2022 Ordered: 07-Feb-2021 AshiataCarmel Intent [facility] Start: 02-07-2021 End: 02-08-2022 [facility] Comment on above: once now and daily P RN now and daily PRN Start: 06-03-2020 Adult depression screening assessment DEPRESSION SCREENING [facility] Start: 2017 BONE DENSITY BONE DENSITY [facility] Start: 2017 Pneumococcal Vaccine : 65+ Years (1 of 1 - PCV) Pneumococcal Vaccine: 65+ Years (1 of 1 - PCV) [facility] Start: 2017 PNEUMOVAX AGE 65 AND OVER WITH 5YR LOOKBACK (#1) PNEUMOVAX AGE 65 AND OVER WITH 5YR LOOKBACK (#1) [facility] Start: 07-19-2016 DTaP/Tdap/Td Vaccine s (1 - Tdap) DTaP/Tdap/Td Vaccines (1 - Tdap) [facility] Start: 2012 RSV patient s and/or patients aged 60+ years (1 - 1-dose 60+ series) RSV patients and/or patients aged 60+ years (1 - 1-dose 60+ series) [facility] Start: 1997 COLOGUARD (FIT-DNA) COLOGUARD (FIT-D NA) [facility] Start: 1997 Colonoscopy COLONOSCOPY [facility] Start: 1997 COLORECTAL CANCER SCREENING COLORECTAL CANCER SCREENING [facility] Start: [address] COLONOGRAPHY [facility] Start: 1997 FECAL OCCULT BLOOD FECAL OCCULT BLOO D [facility] Start: 1997 LIPID SCREEN LIPID SCREEN [facility] Start: 1997 SIGMOIDOSCOPY SIGMOIDOSCOPY [facility] Start: 1992 Mammography MAMMOGRAM [facility] Start: 1971 Urine microalbumin profile DTAP,TDAP,TD (1 - Tdap) [facility] Start: 1970 HEPATITIS C SCREENING HEPATITIS C [facility] Start: 1970 Hepatitis C screening Hepatitis C [facility] Start: 1958 Pneumococcal Vaccine : 65+ Years (1 of 2 - PCV) Pneumococcal Vaccine: 65+ Years (1 of 2 - PCV) [facility] Start: 1958 PNEUMOCOCCAL: 65+ (1 - PCV) PNEUMOCOCCAL: 65+ (1 - PCV) [facility] Start: 1957 COVID-19 VACCINE (#1) COVID-19 VACCI NE (#1) [facility] Start: 1957 COVID-19 VACCINE (1) COVID-19 VACCIN E (1) [facility] Start: 1952 Lipid panel Lipid Panel [facility] Start: 1950 Medicare Annual Well ness Visit Medicare Annual Wellness Visit (AWV) [facility] Start: 1950 Screening for malign ant neoplasm of colon [facility] Start: 1950 Screening for osteoporosis Bone Density Scan [facility] ALDOSTERONE, 24 HOUR URINE ALDOSTERONE, 24 HOUR URINE Lab Routine Hypertensive heart disease without heart failure Aldosteronism (HCC) Ordered: 12/24/2021 [facility] Work Phone: Comment on above: Ordered: 12/24/2021 ALDOSTERONE, 24 HOUR URINE ALDOSTERONE, 24 HOUR URINE Lab Routine Fatigue, unspecified type Ordered: 01/17/2022 [facility] Work Phone: Comment on above: Ordered: 01/17/2022 End: 03-14-2023 Ct abdomen w/o & w/contrast material CT ADRENAL WO/W IVCON Radiology Routine Adrenal adenoma, unspecified laterality 1 Occurrences starting 02/12/2022 until 03/14/2023 [facility] Work Phone: Comment on above: 1 Occurrences starti ng 02/12/2022 until 03/14/2023 MG Breast - bilatera l Diagnostic [facility] Patient referral [facility] Work Phone: Renal function 2000 panel - Serum or Plasma [facility] Sodium [Moles/time] in 24 hour Urine SODIUM 24 HR URINE Lab Routine Hypertensive heart disease without heart failure Aldosteronism (HCC) Ordered: 12/24/2021 [facility] Work Phone: Comment on above: Ordered: 12/24/2021 Sodium [Moles/time] in 24 hour Urine SODIUM 24 HR URINE Lab Routine Fatigue, unspecified type Ordered: 01/17/2022 [facility] Work Phone: Comment on above: Ordered: 01/17/2022 End: 02-02-2023 Us retroperitoneal real time w/image limited US RENAL ARTERY/VEIN Radiology Routine Fatigue, unspecified type 1 Occurrences starting 01/03/2022 until 02/02/2023 [facility] Work Phone: Comment on above: 1 Occurrences starti ng 01/03/2022 until 02/02/2023 [facility] Immunizations Immunization Date Immunization Notes Care Provider Yunior quintero 08-19-2022 influenza virus vaccine, split virus (incl. purified surface antigen) Lon Miller Other [facility] Other 08-19-2022 influenza virus vaccine, unspecified formulation Flores Lue [facility] 02-19-2019 zoster vaccine recombinant Ashanti Foote MD Work Phone: [facility] 12-12-2018 zoster vaccine recombinant Ashanti Foote MD Work Phone: [facility] 07-09-2018 influenza virus vaccine, split virus (incl. purified surface antigen) Lon Miller Other [facility] Other 07-09-2018 influenza virus vaccine, unspecified formulation Flores Lutyrel [facility] 07-09-2018 influenza, high dose seasonal, preservative-free Ashanti Foote MD Work Phone: [facility] 06-25-2017 influenza virus vaccine, split virus (incl. purified surface antigen) Lon Miller Other [facility] Other 06-25-2017 influenza virus vaccine, unspecified formulation Flores Frank [facility] 06-25-2017 influenza, injectabl e, quadrivalent, preservative free Ashanti Foote MD Work Phone: [facility] 07-18-2016 influenza virus vaccine, unspecified formulation Flores Lue [facility] 07-18-2016 influenza, seasonal, injectable, preservative free Ashanti Foote MD Work Phone: [facility] 07-18-2016 tetanus and diphther ia toxoids, adsorbed, preservative free, for adult use (5 Lf of tetanus toxoid and 2 Lf of diphtheria toxoid) Lon Miller Other [facility] 08-24-2015 influenza virus vaccine, unspecified formulation Flores Lue [facility] 08-24-2015 influenza, injectabl e, quadrivalent, preservative free Ashanti Foote MD Work Phone: [facility] 07-12-2015 influenza virus vaccine, unspecified formulation Sharad Asencio [facility] 07-12-2015 influenza, injectabl e, madin chuck canine kidney, preservative free Ashanti Foote MD Work Phone: [facility] 07-22-2013 tetanus and diphther ia toxoids, adsorbed, preservative free, for adult use (5 Lf of tetanus toxoid and 2 Lf of diphtheria toxoid) Lon Paul Other [facility] 10-20-2012 influenza virus vaccine, unspecified formulation Ashanti Foote MD Work Phone: [facility] Payers Date Payer Category Payer Self-pay [id number] 2020 Unknown MMO MMO MEDICARE SUPPLEMENT [id number] 2020-Present [phone] [address] [place] [address] Indemnity [id number]. [id number] 2019 Medicare [id number]. [id number] 2015 Medicare MEDICARE MEDICAR E A AND B [id number] 2015-Present [phone] [address] [address] [place] [address] Medicare [id number]. [id number] 1959 Medicare [id number] 2.16.840.1.267026.19 1959 Unknown [id number] 2.16.840.1.936075.19 1954 Unknown [id number] 2.16.840.1.927718.3.579.2. 647 1952 Unknown [id number] 2.16.840.1.693538.3.579.2. 647 1952 Unknown [id number] 2.16.840.1.218239.3.579.2. 647 1952 Unknown [id number] 2.16.840.1.194210.3.579.2. 647 1952 Unknown [id number] 2.16.840.1.267935.3.579.2. 647 1952 Unknown [id number] 2.16.840.1.810142.3.579.2. 647 1952 Unknown [id number] 2.16.840.1.576806.3.579.2. 593 1952 Unknown [id number] 2.16.840.1.940080.3.579.2. 593 1952 Unknown [id number] 2.16.840.1.119956.3.579.2. 593 1952 Unknown [id number] 2.16.840.1.517416.3.579.2. 593 1952 Unknown [id number] 2.16.840.1.605806.3.579.2. 593 1952 Unknown [id number] 2.16.840.1.275124.3.579.2. 593 1952 Unknown [id number] 2.16.840.1.294272.3.579.2. 593 1952 Unknown [id number] 2.16.840.1.603361.3.579.2. 593 1952 Unknown [id number] 2.16.840.1.115026.3.579.2. 1245 1952 Unknown [id number] 2.16.840.1.455905.3.579.2. 1242 1952 Unknown [id number] 2.16.840.1.686109.3.579.2. 727 1952 Unknown [id number] 2.16.840.1.864705.3.579.2. 727 1952 Unknown [id number] 2.16.840.1.434924.3.579.2. 727 Medicare Medicare-OP No Part B [id number] Private Health Insurance [employer] Insurance [facility] [id number] Unknown [id number] Unknown Unknown [id number] 2.16.840.1.429966.3.579.2. 531 Unknown [id number] 2.16.840.1.831381.3.579.2. 531 Unknown [id number] 2.16.840.1.912699.3.579.2. 531 Unknown [id number] 2.16.840.1.165951.3.579.2. 531 Social History Date Type Detail Facility [facility] Tobacco smoking consumption unknown [facility] Start: 10-20-2012 End: 02-18-2024 Current every day smoker Current every day smoker [id number]-[id number] Work Phone: Start: 10-20-2012 End: 02-18-2024 Tobacco smoking status PRIS Smokes tobacco daily [facility] History of tobacco use Cigarette Smoker [facility] Start: 10-20-2012 End: 02-18-2024 Tobacco use and exposure Smokeless tobacco non-user [facility] Start: 12-24-2021 Alcohol intake 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) [facility] Start: 1950 Sex Assigned At Not on file C [facility] Start: 12-14-2021 End: 02-18-2024 Exposure to SARS-CoV-2 (event) Not sure [facility] Start: 1950 Sex Assigned At Female C [facility] Start: 02-18-2024 Sex Assigned At F [facility] Start: 07-03-2021 End: 03-08-2024 Tobacco smoking status NHIS Smoker (finding) [facility] Start: 09-08-2023 End: 06-30-2024 Tobacco smoking status Light tobacco smoker (finding) [facility] Start: 01-05-2024 Gender identity Identifies as female gender (finding) [facility] Tobacco smoking status Never [facility] Functional Status Date Assessment Result Facility 07-12-2024 Functional Status N/A [facility] 06-30-2024 Functional Status N/A [facility] 09-08-2023 Functional Status N/A [facility] Functional observable [facility] Mental Status Date Assessment Result Facility 02-08-2021 Cognitive functi ons [id number] [facility] Clinical Notes 02-07-2021 to 07-14-2024 Note Date & Type Note Facility 07-14-2024 Note Progress Note-Physic monie Patient: SYED MICHELLE Age: 73 years Sex: Female : 1950 Associated Diagnoses: None Author: Diego Durán Jr, DO Preoperative Information Anesthesia Preop Info: Time patient last ate or drank 07/12/2024 00:00:00. Anesthesia history: Patient history: None. Family history+: None. Informed consent: Signed by patient. Re-evaluation prior to induction: Initial evaluation reviewed: No significant change. Review of Systems Eye: Negative except as documented in history of present illness. Ear/Nose/Mouth/Throat: Negative except as documented in history of present illness. Respiratory: Negative except as documented in history of present illness. Cardiovascular: Negative except as documented in history of present illness. Musculoskeletal: Negative except as documented in history of present illness. Neurologic: Negative except as documented in history of present illness. Health Status Allergies: Allergic Reactions (Selected) Severity Not Documented Sulfa drugs- No reactions were documented. Problem list: All Problems Smoker / SNOMED CT [id number] / Confirmed Added secondary to documentation in Social History. 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 Kidney stones / SNOMED CT 149071056 / Confirmed Hydronephrosis / SNOMED CT 22968637 / Confirmed Family hx of colon cancer / SNOMED CT 025580363 / Confirmed Renal cyst / SNOMED CT 6049062932 / Confirmed Resolved: Subdural hematoma / SNOMED CT 336778244 Resolved: Overactive bladder / SNOMED CT 4503425569 Resolved: Hypokalemia / SNOMED CT 17999342 Resolved: Hypertension / SNOMED CT 84345392 Resolved: Hyperlipidemia / SNOMED CT 56859380 Resolved: Hypercholesterolemia / SNOMED CT 44304911 Resolved: Coronary artery disease / SNOMED CT 7036298580 Resolved: Breast cancer in remission / SNOMED CT 5595534570 Resolved: Anxiety / SNOMED CT 00918882 Histories Procedure history: Colonoscope (835562071). Mastectomy (0311555776). Hysterectomy (392446186). Cholecystectomy (02358131). Social History Social & Psychosocial Habits Alcohol 06/30/2024 Risk Assessment: Denies Alcohol Use Substance Abuse 06/30/2024 Risk Assessment: Denies Substance Abuse Tobacco 06/30/2024 Risk Assessment: High Risk 06/30/2024 Tobacco Use: Current Every Day Smoker Type: Cigarettes 06/30/2024 Tobacco Use: 5-9 cigarettes (between 1 Smokeless tobacco use: Never Type: Cigarettes . Physical Examination Airway: Mallampati classification: II (soft palate, fauces, uvula visible). Respiratory: adequate air exchange. Cardiovascular: Regular rhythm. Plan [place] [employer] Anesthesiologists (ASA) physical status classification: Class III. Anesthetic Preoperative Plan: Anesthesia General. [facility] Comment on above: Result Comment: Elec tronically Signed By: Diego Durán Jr, DO\.br\Date and Time Signed: 07/14/24 12:41 EDT 07-14-2024 Note Progress Note-Daljit lomax Patient: SYED MICHELLE Age: 73 years Sex: Female : 1950 Associated Diagnoses: None Author: Diego Durán Jr, DO Postoperative Information Postoperative disposition: Postoperative disposition: To PACU. Optimetrix number: Optimetrix number [id number]. Anesthetic utilized: General. Health Status Allergies: Allergic Reactions (Selected) Severity Not Documented Sulfa drugs- No reactions were documented. Physical Examination Vital Signs 07/12/2024 8:58 EDT Heart Rate Monitored 64 bpm Respiratory Rate Monitored 11 br/min Systolic Blood Pressure 140 mmHg HI Diastolic Blood Pressure 82 mmHg Mean Arterial Pressure, Cuff 101 mmHg SpO2 100 % 07/12/2024 8:50 EDT Heart Rate Monitored 70 bpm Respiratory Rate Monitored 14 br/min Systolic Blood Pressure 125 mmHg Diastolic Blood Pressure 78 mmHg Mean Arterial Pressure, Cuff 94 mmHg SpO2 100 % 07/12/2024 8:45 EDT Heart Rate Monitored 69 bpm Respiratory Rate Monitored 18 br/min Systolic Blood Pressure 118 mmHg Diastolic Blood Pressure 65 mmHg Mean Arterial Pressure, Cuff 83 mmHg SpO2 99 % 07/12/2024 8:43 EDT Temperature Temporal Artery 36.6 DegC Heart Rate Monitored 68 bpm Respiratory Rate Monitored 17 br/min Systolic Blood Pressure 118 mmHg Diastolic Blood Pressure 69 mmHg Mean Arterial Pressure, Cuff 85 mmHg SpO2 99 % Pain Assessment: Controlled. General: Awake, Alert, Appropriate. Respiratory: Adequate air exchange. Cardiovascular: Stable, Normal peripheral perfusion. Neurological: Normal sensory function, Normal motor function. Assessment Anesthetic outcome No anesthetic complications noted. Adequate pain relief. able to void without difficulty, able to ambulate with assist, tolerating PO intake, no N/V. Review / Management Condition: Stable. Plan Transfer/Discharge: Transfer/Discharge Discharge when meets criteria ( To home ). [facility] Comment on above: Result Comment: Elec tronically Signed By: Diego Durán Jr, DO\.snow\Date and Time Signed: 07/14/24 12:40 EDT 07-12-2024 Hospital Discharge instructions Patient Education 07/12/2024 08:51:10 Hemorrhoids, Jmsl-zc-Uioe Hemorrhoids Hemorrhoids are swollen veins that may form: In the butt (rectum). These are called internal hemorrhoids. Around the opening of the butt (anus). These are called external hemorrhoids. Most hemorrhoids do not cause very bad problems. They often get better with changes to your lifestyle and what you eat. What are the causes? Having trouble pooping (constipation) or watery poop (diarrhea). Pushing too hard when you poop. . Being very overweight (obese). Sitting for too long. Riding a bike for a long time. Heavy lifting or other things that take a lot of effort. Anal sex. What are the signs or symptoms? Pain. Itching or soreness in the butt. Bleeding from the butt. Leaking poop. Swelling. One or more lumps around the opening of your butt. How is this treated? In most cases, hemorrhoids can be treated at home. You may be told to: Change what you eat. Make changes to your lifestyle. If these treatments do not help, you may need to have a procedure done. Your doctor may need to: Place rubber bands at the bottom of the hemorrhoids to make them fall off. Put medicine into the hemorrhoids to shrink them. Shine a type of light on the hemorrhoids to cause them to fall off. Do surgery to get rid of the hemorrhoids. Follow these instructions at home: Medicines Take enpj-qxw-vrjgkxp and prescription medicines only as told by your doctor. Use creams with medicine in them or medicines that you put in your butt as told by your doctor. Eating and drinking Eat foods that have a lot of fiber in them. These include whole grains, beans, nuts, fruits, and vegetables. Ask your doctor about taking products that have fiber added to them (fibersupplements). Take in less fat. You can do this by: ?Eating low-fat dairy products. ?Eating less red meat. ?Staying away from processed foods. Drink enough fluid to keep your pee (urine) pale yellow. Managing pain and swelling Take a warm-water bath (sitz bath) for 20 minutes to ease pain. Do this 3 4 times a day. You may do this in a bathtub. You may also use a portable sitz bath that fits over the toilet. If told, put ice on the painful area. It may help to use ice between your warm baths. ?Put ice in a plastic bag. ?Place a towel between your skin and the bag. ?Leave the ice on for 20 minutes, 2 3 times a day. If your skin turns bright red, take off the ice right away to prevent skin damage. The risk of damage is higher if you cannot feel pain, heat, or cold. General instructions Exercise. Ask your doctor how much and what kind of exercise is best for you. Go to the bathroom when you need to poop. Do not wait. Try not to push too hard when you poop. Keep your butt dry and clean. Use wet toilet paper or moist towelettes after you poop. Do not sit on the toilet for a long time. Contact a doctor if: You have pain and swelling that do not get better with treatment. You have trouble pooping. You cannot poop. You have pain or swelling outside the area of the hemorrhoids. Get help right away if: You have bleeding from the butt that will not stop. This information is not intended to replace advice given to you by your health care provider. Make sure you discuss any questions you have with your health care provider. Document Revised: 06/10/2023 Document Reviewed: 06/10/2023 [employer] Patient Education 2023 PAK. 07/12/2024 08:51:01 Colon Polyps Colon Polyps Colon polyps are tissue growths inside the colon, which is part of the large intestine. They are one of the types of polyps that can grow in the body. A polyp may be a round bump or a mushroom-shaped growth. You could have one polyp or more than one. Most colon polyps are noncancerous (benign). However, some colon polyps can become cancerous over time. Finding and removing the polyps early can help prevent this. What are the causes? The exact cause of colon polyps is not known. What increases the risk? The following factors may make you more likely to develop this condition: Having a family history of colorectal cancer or colon polyps. Being older than 45 years of age. Being younger than 45 years of age and having a significant family history of colorectal cancer or colon polyps or a genetic condition that puts you at higher risk of getting colon polyps. Having inflammatory bowel disease, such as ulcerative colitis or Crohn's disease. Having certain conditions passed from parent to child (hereditary conditions), such as: ?Familial adenomatous polyposis (FAP). ?Green syndrome. ?Turcot syndrome. ?Peutz Jeghers syndrome. ?MUTYH-associated polyposis (MAP). Being overweight. Certain lifestyle factors. These include smoking cigarettes, drinking too much alcohol, not getting enough exercise, and eating a diet that is high in fat and red meat and low in fiber. Having had childhood cancer that was treated with radiation of the abdomen. What are the signs or symptoms? Many times, there are no symptoms. If you have symptoms, they may include: Blood coming from the rectum during a bowel movement. Blood in the stool (feces). The blood may be bright red or very dark in color. Pain in the abdomen. A change in bowel habits, such as constipation or diarrhea. How is this diagnosed? This condition is diagnosed with a colonoscopy. This is a procedure in which a lighted, flexible scope is inserted into the opening between the buttocks (anus) and then passed into the colon to examine the area. Polyps are sometimes found when a colonoscopy is done as part of routine cancer screening tests. How is this treated? This condition is treated by removing any polyps that are found. Most polyps can be removed during a colonoscopy. Those polyps will then be tested for cancer. Additional treatment may be needed depending on the results of testing. Follow these instructions at home: Eating and drinking Eat foods that are high in fiber, such as fruits, vegetables, and whole grains. Eat foods that are high in calcium and vitamin D, such as milk, cheese, yogurt, eggs, liver, fish, and broccoli. Limit foods that are high in fat, such as fried foods and desserts. Limit the amount of red meat, precooked or cured meat, or other processed meat that you eat, such as hot dogs, sausages, bennett, or meat loaves. Limit sugary drinks. Lifestyle Maintain a healthy weight, or lose weight if recommended by your health care provider. Exercise every day or as told by your health care provider. Do not use any products that contain nicotine or tobacco, such as cigarettes, e-cigarettes, and chewing tobacco. If you need help quitting, ask your health care provider. Do not drink alcohol if: ?Your health care provider tells you not to drink. ?You are , may be , or are planning to become . If you drink alcohol: ?Limit how much you use to: ?0 1 drink a day for women. ?0 2 drinks a day for men. ?Know how much alcohol is in your drink. In the [place] one drink equals one 12 oz bottle of beer (355 mL), one 5 oz glass of wine (148 mL), or one 1 oz glass of hard liquor (44 mL). General instructions Take flwa-rqp-hqcurxq and prescription medicines only as told by your health care provider. Keep all follow-up visits. This is important. This includes having regularly scheduled colonoscopies. Talk to your health care provider about when you need a colonoscopy. Contact a health care provider if: You have new or worsening bleeding during a bowel movement. You have new or increased blood in your stool. You have a change in bowel habits. You lose weight for no known reason. Summary Colon polyps are tissue growths inside the colon, which is part of the large intestine. They are one type of polyp that can grow in the body. Most colon polyps are noncancerous (benign), but some can become cancerous over time. This condition is diagnosed with a colonoscopy. This condition is treated by removing any polyps that are found. Most polyps can be removed during a colonoscopy. This information is not intended to replace advice given to you by your health care provider. Make sure you discuss any questions you have with your health care provider. Document Revised: 01/16/2021 Document Reviewed: 01/16/2021 [employer] Patient Education 2023 PAK. 07/12/2024 08:51:00 Colonoscopy, Care After Surgery [facility] (CUSTOM) Colonoscopy Care After Surgery Please read the instructions outlined below and refer to this sheet in the next few weeks. These discharge instructions provide you with general information on caring for yourself after you leave the hospital. Your doctor may also give you specific instructions. While your treatment has been planned according to the most current medical practices available, unavoidable complications occasionally occur. If you have any problems or questions after discharge, please call your doctor. ACTIVITY You may resume your regular activity, but move at a slower pace for the next 24 hours. Take frequent rest periods for the next 24 hours. Walking will help get rid of the air and reduce the bloated feeling in your abdomen (belly). No driving for 24 hours (because of the anesthesia (medicine) used during the test). You may shower. Do not sign any important legal documents or operate any machinery for 24 hours (because of the anesthesia used during the test). NUTRITION Drink plenty of fluids. You may resume your normal diet as instructed by your doctor. Begin with a light meal and progress to your normal diet. Heavy or fried foods are harder to digest and may make you feel nauseated (sick to your stomach). Avoid alcoholic beverages for 24 hours or as instructed. MEDICATIONS You may resume your normal medications unless your doctor tells you otherwise. WHAT YOU CAN EXPECT TODAY Some feelings of bloating in the abdomen. Passage of more gas than usual. Spotting of blood in your stool or on the toilet paper. FOLLOW-UP Your doctor will discuss the results of your test with you. SEEK IMMEDIATE MEDICAL ATTENTION IF: There is more than a spotting of blood in your stool. There is abdominal distention (your abdomen is swollen). There is vomiting. You have a temperature over 101.5 F. There is abdominal pain or discomfort that is severe or gets worse throughout the day. Follow Up Care 06/30/2024 11:19:00 With:Elif MARCUS, SARITA Medel, [facility] Address: When: Unknown Comments:Call for any problems. The office will reach out in about one week from procedure date. [facility] 07-12-2024 Note Patient Education - Text Colonoscopy Care After Surgery Please read the instructions outlined below and refer to this sheet in the next few weeks. These discharge instructions provide you with general information on caring for yourself after you leave the hospital. Your doctor may also give you specific instructions. While your treatment has been planned according to the most current medical practices available, unavoidable complications occasionally occur. If you have any problems or questions after discharge, please call your doctor. ACTIVITY You may resume your regular activity, but move at a slower pace for the next 24 hours. Take frequent rest periods for the next 24 hours. Walking will help get rid of the air and reduce the bloated feeling in your abdomen (belly). No driving for 24 hours (because of the anesthesia (medicine) used during the test). You may shower. Do not sign any important legal documents or operate any machinery for 24 hours (because of the anesthesia used during the test). NUTRITION Drink plenty of fluids. You may resume your normal diet as instructed by your doctor. Begin with a light meal and progress to your normal diet. Heavy or fried foods are harder to digest and may make you feel nauseated (sick to your stomach). Avoid alcoholic beverages for 24 hours or as instructed. MEDICATIONS You may resume your normal medications unless your doctor tells you otherwise. WHAT YOU CAN EXPECT TODAY Some feelings of bloating in the abdomen. Passage of more gas than usual. Spotting of blood in your stool or on the toilet paper. FOLLOW-UP Your doctor will discuss the results of your test with you. SEEK IMMEDIATE MEDICAL ATTENTION IF: There is more than a spotting of blood in your stool. There is abdominal distention (your abdomen is swollen). There is vomiting. You have a temperature over 101.5 F. There is abdominal pain or discomfort that is severe or gets worse throughout the day. Gastroenterology Hemorrhoids Hemorrhoids are swollen veins that may form: ? In the butt (rectum). These are called internal hemorrhoids. ? Around the opening of the butt (anus). These are called external hemorrhoids. Most hemorrhoids do not cause very bad problems. They often get better with changes to your lifestyle and what you eat. What are the causes? ? Having trouble pooping (constipation) or watery poop (diarrhea). ? Pushing too hard when you poop. ? . ? Being very overweight (obese). ? Sitting for too long. ? Riding a bike for a long time. ? Heavy lifting or other things that take a lot of effort. ? Anal sex. What are the signs or symptoms? ? Pain. ? Itching or soreness in the butt. ? Bleeding from the butt. ? Leaking poop. ? Swelling. ? One or more lumps around the opening of your butt. How is this treated? In most cases, hemorrhoids can be treated at home. You may be told to: ? Change what you eat. ? Make changes to your lifestyle. If these treatments do not help, you may need to have a procedure done. Your doctor may need to: ? Place rubber bands at the bottom of the hemorrhoids to make them fall off. ? Put medicine into the hemorrhoids to shrink them. ? Shine a type of light on the hemorrhoids to cause them to fall off. ? Do surgery to get rid of the hemorrhoids. Follow these instructions at home: Medicines ? Take hsxa-fte-rpcxjyd and prescription medicines only as told by your doctor. ? Use creams with medicine in them or medicines that you put in your butt as told by your doctor. Eating and drinking ? Eat foods that have a lot of fiber in them. These include whole grains, beans, nuts, fruits, and vegetables. ? Ask your doctor about taking products that have fiber added to them (fibersupplements). ? Take in less fat. You can do this by: ? Eating low-fat dairy products. ? Eating less red meat. ? Staying away from processed foods. ? Drink enough fluid to keep your pee (urine) pale yellow. Managing pain and swelling ? Take a warm-water bath (sitz bath) for 20 minutes to ease pain. Do this 3?4 times a day. You may do this in a bathtub. You may also use a portable sitz bath that fits over the toilet. ? If told, put ice on the painful area. It may help to use ice between your warm baths. ? Put ice in a plastic bag. ? Place a towel between your skin and the bag. ? Leave the ice on for 20 minutes, 2?3 times a day. ? If your skin turns bright red, take off the ice right away to prevent skin damage. The risk of damage is higher if you cannot feel pain, heat, or cold. General instructions ? Exercise. Ask your doctor how much and what kind of exercise is best for you. ? Go to the bathroom when you need to poop. Do not wait. ? Try not to push too hard when you poop. ? Keep your butt dry and clean. Use wet toilet paper or moist towe (more content not included)... [facility] 05-21-2024 Evaluation note Diagnosis Onset Date Chronic kidney disease, stage 3a acute Hydronephrosis, right acute Hyperaldosteronism acute Hyperlipidemia acute [id number] acute Hypokalemia acute Hypomagnesemia acute Vitamin B12 deficiency acute Vitamin D deficiency acute Strep pharyngitis acute Essential (primary) hypertension acute Strep pharyngitis acute Sore throat noneactive [facility] Work Phone: 1(941) 570-784807-01-2024 Evaluation note* Diagnosis Onset Date Resolution Status Strep pharyngitis noneactive Sore throat noneactive Viral URI noneactive Sore throat noneactive Chronic kidney disease, stage 3a acute Hydronephrosis, right acute Hyperaldosteronism acute Hyperlipidemia acute [id number] acute Hypokalemia acute Hypomagnesemia acute Vitamin B12 deficiency acute Vitamin D deficiency acute Strep pharyngitis acute [facility] Work Phone: 1(524) 687-360306-24-2024 Evaluation note* Diagnosis Onset Date Resolution Status Strep pharyngitis noneactive Sore throat noneactive Viral URI noneactive Sore throat noneactive Chronic kidney disease, stage 3a acute Hydronephrosis, right acute Hyperaldosteronism acute Hyperlipidemia acute [id number] acute Hypokalemia acute Hypomagnesemia acute Vitamin B12 deficiency acute Vitamin D deficiency acute Strep pharyngitis acute [facility] Work Phone: 1(880) 764-207805-09-2024 History of Present illness Narrative* Olga Farrar, [employer]ESS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 - 02/18/2024 1:00 PM EDT [facility] Neurosurgery History of Present Illness Syed Michelle is a 73-year-old female with a PMH significant for CAD on ASA, HTN, CKD III, IBS, anxiety, breast CA s/p mastectomy (2008) completed chemotherapy and 5 years of hormonal therapy, s/p hysterectomy, and 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 Patient presented for neurosurgical evaluation in 2020 with complaints of a 2-3 week headache requiring admission for hypertensive urgency. CTH significant for bilateral SDH R >L. She was last seen by Dr. Anthony in 03/2021 at which time CTHwith near complete resolution of bilateral subdural hematomas. No further neurosurgical follow up was required. Familial history significant for father who passed from cerebral hemorrhage. Patient presented for evaluation of ongoing headache where she was ordered a MRA of her head completed 12/29/23 demonstrating R cerebellar cavernoma measuring 0.9 x 1.0 x 0.7cm and no evidence of aneurysm. Patient was referred back to neurosurgery and presents to clinic for NPV Objective Vitals: BP 148/82 Pulse 67 Temp 35.7 C (96.3 F) Resp 18 Ht 1.727 m (5' 8 ) Wt 54.9 kg (121 lb) BMI 18.40 kg/m Physical Exam: A&Ox3 Fluent speech EOMI; FC x4 VALLE; strength 5/5; no drift Face and shoulder shrug symmetrical Gait stable Relevant Results: MRI brain 12/29/23 with anterior right cerebellar cavernoma measuring 0.9 x 1.0 x 0.7cm. Assessment & Plan Diagnosis: Diagnoses and all orders for this visit: Cerebral cavernoma ([facility]) Provider Impression: Patient is a 73-year-old female presenting to reestablish care with neurosurgery for a known cavernoma. Her most recent MRI continues to show a stable anterior R cerebellar cavernoma measuring 0.9 x 1.0 x 0.7cm. Resolution of prior hemorrhage. Not having seizure or seizure like activity. Given continued stability on MRI imaging and no concern for seizure at this time. Will continue with imaging surveillance and repeat MRI brain w/wo in 1 year. Plan discussed with patient and who were in agreement. All questions answered. Medical History No past medical history on file. Past Surgical History: Procedure Laterality Date CT ANGIO NECK 02/08/2021 CT NECK ANGIO W AND WO IV CONTRAST 02/08/2021 [facility] CT HEAD ANGIO W AND WO IV CONTRAST 02/08/2021 CT HEAD ANGIO W AND WO IV CONTRAST 02/08/2021 [facility] Social History Tobacco Use Smoking status: Every Day Types: Cigarettes Smokeless tobacco: Never No family history on file. Allergies Allergen Reactions Sulfa (Sulfonamide Antibiotics) Unknown No current outpatient medications documented in this [facility] Work Phone: [phone]) 552-111101-29-2024 [facility] Chief Complaint: Patient [...] artery disease, Hypertension, Hypokalemia, and Intracranial hemorrhage ([facility]/HCC). Surgical History She has a past surgical [...] 4. Follow up with me in the [facility] in 3-4 weeks. 5. Follow up [...] of the left ant (more content not included)...[facility]11[facility]30[facility] Evaluation note* Encounter Date Diagnosis Assessment Notes Treatment Notes Treatment Clinical Notes Aug, Dysuria (ICD-10 - R30.0) [facility] 11-28-2023 Hospital Discharge instructions Patient Education 09/08/2023 11:18:03 [...] include: ?8 oz (237 mL) of milk, achifrf-bdyrktacnfue-syvef milk, and calcium- fortifiedfruit juice. Calcium-fortified means [...] ?Spinach (cooked), rhubarb, beets, sweet potatoes, and Guyanese chard. ?Peanuts. ?Potato chips, latvian fries, and baked potatoes with skin on. ?Nuts and nut products. ?Chocolate. If you regularly take a diuretic medicine, make sure to eat at least 1 or 2 servings of fruits or vegetables that are high in potassium each day. These include: ?Avocado. ?Banana. ?[place], prune, carrot, or tomato juice. ?Baked potato. [...] magnesium, fish oil, or vitamin B6. Take rgak-iri-lmtcykk and prescription medicines only as told by [...] Casseroles. Pizza. Lasagna. Frozen meals. Potato chips. Greenlandic fries. The items listed above may not [...] provider. Document Revised: 06/09/2022 Document Reviewed: 06/09/2022 [employer] Patient Education 2022 PAK. Follow Up Care 08/14/2023 11:28:21 With:Frank MARCUS, LAURA Palacios, [facility] Address: When: Unknown Comments:IDALIA [facility] 11-07-2023 Evaluation note* Encounter Date Diagnosis Assessment Notes Treatment Notes Treatment Clinical Notes Aug, Strep pharyngitis (ICD-10 - J02.0) Finish med. : Called pt on 08/21 and her symptoms were resolved. Declines referral to ENT at this time. Will call if further issues. [facility] 10-31-2023 Evaluation note* Encounter Date Diagnosis [...] (ICD-10 - E26.9) Patient was referred to [facility] endocrinology department. Patient had CAT scan [...] will refer the patient to Urology clinic [facility] 10-09-2023 Evaluation note* Encounter Date Diagnosis [...] She does not currently have strep infection. [facility] 10-03-2023 Evaluation note* Encounter Date Diagnosis [...] her risk and is unmotivated to quit. [facility] 09-22-2023 Evaluation note* Encounter Date Diagnosis [...] wait another 24 hours prior to testing. [facility] 09-12-2023 Evaluation note* Encounter Date Diagnosis [...] understanding and is agreeable to treatment plan. [facility] 09-01-2023 Evaluation note* Encounter Date Diagnosis [...] for reevaluation of your frequent strep infections. [facility] 08-22-2023 Evaluation note* Encounter Date Diagnosis [...] symptomatology and family history of colorectal cancer [facility] 08-15-2023 Evaluation note* Encounter Date Diagnosis Assessment Notes Treatment Notes Treatment Clinical Notes May, Essential (primary) hypertension (ICD-10 - I10) Chronic problem. Monitor K and renal function on present meds. May, Fatigue, unspecified type (ICD-10 - R53.83) Pt concerned for anemia or thyroid disease. will call w lab results. May, Generalized anxiety disorder (ICD-10 - F41.1) [facility] 07-19-2023 Evaluation note* Encounter Date Diagnosis [...] continue Coricidin for other upper respiratory symptoms [facility] 07-07-2023 Evaluation note* Encounter Date Diagnosis Assessment Notes Treatment Notes Treatment Clinical Notes Apr, Generalized abdominal pain (ICD-10 - R10.84) Pt agrees to referral for concern that this has happened twice in 2 months. States the pain was very severe. Referral placed to Vascular. [facility] 06-06-2023 Evaluation note* Encounter Date Diagnosis [...] understanding and is agreeable to treatment plan [facility] 04-26-2023 Evaluation note* Encounter Date Diagnosis Assessment Notes Treatment Notes Treatment Clinical Notes Jan, Hyperaldosteronism (ICD-10 - E26.9) Patient was referred to [facility] endocrinology department. Patient had CAT scan [...] Hyperlipidemia, unspecified hyperlipidemia type (ICD-10 - E78.5) [facility] 03-09-2023 Evaluation note* Encounter Date Diagnosis Assessment Notes Treatment Notes Treatment Clinical Notes Dec, Breast pain, left (ICD-10 - N64.4) Reviewed symptoms and case with mamm tech. They recommend B diagnostic with care to implant area. Explained to Syed and order sent to hospital. Dec, History of breast cancer (ICD-10 - Z85.3) [facility] Other 02-24-2023 NoteCoronary artery disease is stable, no concerning symptomsTri[facility] Note Hypertension is well controlled- continue current med regime. States she only has needed Aldactone a couple times since last visit. Renal function remains stable [facility] NotePatient here for 1 mo follow [...] headaches. All other systems reviewed and are negative.[facility] 12-05-2022 NoteUTP CARDIOLOGY PROGRESS NOTE HPI: Syed [...] visit. Renal function remains stable F/U with lozenge maker helper Coronary atherosclerosis Coronary artery disease is stable, no concerning symptoms RTC 6 months to 1 year[facility]* Encounter Date Diagnosis Assessment Notes [...] no improvement in 2 to 3 days [facility] 12-28-2022 Evaluation note* Encounter Date Diagnosis [...] treatment plan. Patient left in stable condition [facility] 12-26-2022 Evaluation note* Encounter Date Diagnosis Assessment Notes Treatment Notes Treatment Clinical Notes Sep, Right otitis media with effusion (ICD-10 - H65.91) take medication as directed. Middle ear fluid can be caused from allergies, traveling or viral infections. It may linger. Follow up with PCP if symptoms persist [facility] 10-27-2022 Evaluation note* Encounter Date Diagnosis Assessment Notes Treatment Notes Treatment Clinical Notes Jul, Hyperaldosteronism (ICD-10 - E26.9) Patient was referred to [facility] endocrinology department. Patient had CAT scan [...] the patient to eat banana a day [facility] 08-22-2022 Evaluation note* Encounter Date Diagnosis [...] understanding and is agreeable to treatment plan [facility] 07-01-2022 Evaluation note* Encounter Date Diagnosis [...] family physician if no improvement by Thursday. [facility] 06-06-2022 Miscellaneous Notes* Telephone Encounter - Oneal Luz MA - 03/17/2022 8:50 AM EDT FLORA: 12/24/2021 NOV: Not scheduled Patient is sending an update regarding her blood pressure. Thank you, Ginette Luz MA [facility] Miscellaneous Notes* Telephone Encounter - Kusum Bullock [...] 111 High 81 CM documented in this encounterBarney [facility]04-14-2022 Miscellaneous Notes* Telephone Encounter - Ashanti Foote MD - 01/23/2022 4:11 PM EDT Noted. Thanks, Ashanti Foote MD, MPH * Telephone Encounter - Arlette Carias Adjunct Professor Of Voice - 01/01/2022 12:26 PM EDT Received various outside medical records. Indexed to chart. documented in this [facility]04-01-2022 Miscellaneous Notes* Telephone Encounter - Oneal [...] you, Ginette Luz MA documented in this encounter[facility] Miscellaneous Notes* Telephone Encounter - Ivette Cervantes APRN.CNP - 01/03/2022 12:[address] Foote, Please sign ULTRA SOUND order if appropriate. When would you like CT completed? Per last note: will do renal artery US (to evaluate for renal artery stenosis) and CT adrenals next time after tests are completed Ivette Cervantes APRN.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 * Telephone Encounter - Kusum Bullock MA - 01/01/2022 3:39 PM EDT Images from the original note were not included. FLORA: 12/24/21 NOV: NONE Pt is requesting CT. From previous office visit 12/24/21 I see no orders for US or CT. Please advise documented in this encounterBarney [facility] Center03-15-2022 NoteHNO ID: [id number] Author: Ashanti oFote MD Service: ? Author Type: Physician Type: [...] bilateral subdural hematomas She normally follows in [place]. She sees a lozenge maker helper and they recommended she see endocrinology for [...] maintenance medication. Dr. Clifton is her new lozenge maker helper. On potassium during breast cancer treatment - [...] taking both beta blockers. Both PCP and lozenge maker helper change her BP meds. Current Outpatient Medications [...] bilateral subdural hematomas She normally follows in [place]. She sees a lozenge maker helper and they recommended she see endocrinology for [...] maintenance medication. Dr. Clifton is her new lozenge maker helper. On potassium during breast cancer treatment - [...] taking both beta blockers. Both PCP and lozenge maker helper change her BP meds. Current Outpatient Medications [...] on 12-06-2021 Aldosterone 11.8 ng/dL Normal 0.0-30.0 [facility] Comment on above: Performed By: #### CBC #### [facility] [address] [place] [id number] Kenny Nicole RENIN ACTIVITY on 12-05-2021 Renin Activity, Plasma <0.167 Critically low 0.167-5.380 [facility] Comment on above: Performed By: #### BMP #### [facility] [address] [place], [place] [id number] Kenny Nicole PTH INTACT on 12-03-2021 PTH, Intact 46 pg/mL Normal 15-65 [facility] Comment on above: Performed By: #### BMP #### [facility] [address] [place] [id number] Kenny Nicole ALDOSTERONE URNE 24HR on 04-11-2021 Aldosterone U,Random <2.50 Normal Not Estab. [facility] Comment on above: Result Comment: This test was developed and its performance characteristics determined by [facility]. It has not been cleared or approved by the Food and Drug Administration. Performed By: #### BMP #### [facility] [address] [place] [phone] Kenny Nicole Aldosterone,U, Timed <4.75 Normal 0.00-19.[address] [facility] Comment on above: Result Comment: Adult Ranges Low Sodium Intake 20.00 - 80.00 Normal Sodium Intake 0.00 - 19.00 High Sodium Intake 0.00 - 12.00 Performed By: #### BMP #### [facility] [address] [place] [id number] Kenny Nicole OUTSIDE IMAGING: CT ABD/PELV W CON on [...] 1:44 PM 12/24/2021 Click here to page [facility] STAFF PHYSICIAN NOTE OF PERSONAL INVOLVEMENT IN [...] Foote MD, MPH Endocrinology documented in this encounterBarney [facility] Center03-15-2022 Instructions* Patient Instructions* Theodore Henderson MA - [...] these tests. Thank you for choosing the [facility] Department of Endocrinology, Diabetes and Metabolism. Did you know that you need to call 48 hours in advance of your scheduled visit, if you are unable to make your appointment? The Endocrinology and Metabolism [place] thanks you for your commitment, because patients not showing to their appointment results in a lost opportunity for patients to receive [facility] health care at the [facility]. To Cancel an appointment, please choose one of the following: - Call the Appointment Call Center at [phone] - From [employer], Go to Appointments Cancel Appts If cancelling, consider your need to reschedule to prevent further delays in your care. To Schedule an appointment, please choose one of the following: - Call the Appointment Call Center at [phone] - From [facility], Go to Appointments Request an Appt documented in this encounterBarney Children'S Medical Center03-01-2022 Evaluation note* Encounter Date Diagnosis Assessment Notes [...] sampling . I will refer patient to [facility] endocrinology clinic blood pressure Dec, Hyperaldosteronism [...] volume status. Monitor renal function as indicated [employer] Other 02-07-2022 Evaluation note* Encounter Date Diagnosis Assessment Notes Treatment Notes Treatment Clinical Notes Nov, Hypokalemia (ICD-10 - E87.6) [employer] Other 12-06-2021 Evaluation note* Encounter Date Diagnosis [...] Patient care instructions given in writting by [facility] Care At Home document. [employer] Other 04-30-2021 NoteSend Summary: Discharge Summary Providers: Provider RoleProvider Name InaMoshe iHckman Analy Pereyra John T Note Recipients: Jordan Miller MD Discharge: Summary: Admission Date: .07-Feb-2021 19:57:00 Discharge Date: 08-Feb-2021 Attending Physician at Discharge: Analy Anthony Admission Reason: SDH Final Discharge Diagnoses: SDH (subdural hematoma) Procedures: none Condition at Discharge: Satisfactory Disposition at Discharge: .Home Vital Signs: T PRBPSpO2 Value36.81212216/8599% Date/Time02/08 8: 10: 10: 10: 10:00 Range(36.5C - 37C ) (59 - 78 ) (12 - 26 ) (118 - 194 )/ (58 - 94 ) (95% - 100% ) Highest temp of 37 C was recorded at 02/08 0:00 Date: Weight/Scale Type:Height: 08-Feb-2021 00:4460.9 kg / mzh860.6 cm Physical Exam: General: in bed, no [...] Analy Anthony Scheduled Date/Time: 05-Mar-2021 11:15 Location: [facility]; [facility] [address] [place], [place] Follow-Up: Physician/Dept/Service: CAT Scan of Head Scheduled Date/Time: 05-Mar-2021 09:30 Location: [facility], Radiology Department, 1st floor Registration; [address] [place] [address] Discharge Medications: Home Medication losartan 50 mg [...] tab(s) orally once a day; RESUME ON 5/2 PRN Medication acetaminophen 325 mg oral tablet - 2 tab(s) orally every 6 hours, As needed, Pain - Mild (1-3) Signature/Cosignature/Attestation: Note Completion: Provider/Team Pager #[phone] Total time spent today was 45 minutes, all of which was spent coordinating patient's discharge Electronic Signatures: Katie Stuart (MILL DRESSER-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) (Signed 08-Feb-2021 11:38) Authored: Send Summary, Summary Content, Ongoing Care, Note Completion Last Updated: 08-Feb-2021 11:38 by Katie Stuart (MILL DRESSER-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)[facility]04-29-2021 NoteHistory of Present Illness: Service: Service: Surgery History Present Illness: Admission Reason: cavernoma HPI: The patient is a 70 y/o F with a history of CKD, HTN, CAD on asa, breast ca diagnosed in 2008 s/p mastectomy, s/p hysterectomy, HLD, known R cerebellar cavernoma (seen on MRI in 2018) who presented to the OSH with 2-3 [...] day. Objective Information: Objective Information: T PRBPSpO2 Value36.83288314/79484% Date/Time02/07 20: 20: 20: 20: 20:16 Range(36.5C - 36.5C [...] the note. I personally evaluated the patient [id number] Comments/ Additional Findings i personally reviewed CTA [...] OnlyCurrent Admission Order. Admit to Inpatient Adult [facility] Admitting Diagnosis, D18.00 Cavernoma Transfer to, [facility]: [facility] Kaylee TT04 Division Admitting Service, Neurosurgery Level of Care, Stepdown Carmel Miles Electronic Signatures: De (more content not included)...[facility] + Plan note No data available for this section [facility] Evaluation + Plan note Future Appointments Appointment Date:07/12/2024 08:00:00 AM Scheduled Provider: Location:[facility] Appointment Type:Surgery FT [facility] Evaluation note* Neurological: [id number],EOMI, FS, TMNo PD R / LUE 5 / 5LE 5 / 5SILT x 4ext grossly [facility]* Diagnosis Aldosteronism (HCC)- Primary Hyperaldosteronism, unspecified Hypertensive heart disease without heart failure Unspecified hypertensive heart disease without heart failure documented in this encounter [facility]* Diagnosis Fatigue, unspecified type- Primary documented in this encounter [facility]* Diagnosis Fatigue, unspecified type- Primary documented in this encounter [facility]* Diagnosis Adrenal adenoma, unspecified laterality documented in this encounter [facility] CenterEvalut[facility] noteNort [employer] Other Evaluation noteNo InformationNortTASS Other Evalucyghv noteNo assessment information available [facility] Work Phone: Evalutvnaa note* Diagnosis Onset Date Resolution Status Essential (primary) hypertension acute Family history of cerebral hemorrhage acute Headache acute History of subdural hematoma acute Breast pain, right acute History of breast cancer acu te Mastitis in female acute [facility] Work Phone: Evaluation note* Diagnosis Onset Date Resolution Status Essential (primary) hypertension acute Family history of cerebral hemorrhage acute Headache acute History of subdural hematoma acute Breast pain, right acute History of breast cancer acu te Mastitis in female acute Strep pharyngitis noneactive Sore throat noneactive [facility] Work Phone: Evaluation note* Diagnosis Onset Date Resolution Status Essential (primary) hypertension acute Family history of cerebral hemorrhage acute Headache acute History of subdural hematoma acute Breast pain, right acute History of breast cancer acu te Mastitis in female acute Strep pharyngitis noneactive Sore throat noneactive Viral URI noneactive Sore throat noneactive [facility] Work Phone: Evaluation note* Diagnosis Cerebral cavernoma ([facility])- Primary Congenital anomaly of cerebrovascular system documented in this encounter [facility] Work Phone: Evaluation note* Diagnosis Onset Date Resolution Status Essential (primary) hypertension acute Family history of cerebral hemorrhage acute Headache acute History of subdural hematoma acute Breast pain, right acute History of breast cancer acu te Mastitis in female acute Strep pharyngitis noneactive Sore throat noneactive Viral URI noneactive Sore throat noneactive Chronic kidney disease, stage 3a acute Hydronephrosis, right acute Hyperaldosteronism acute Hyperlipidemia acute [id number] acute Hypokalemia acute Hypomagnesemia acute Vitamin B12 deficiency acute Vitamin D deficiency acute [facility] Work Phone: Evaluation note* Diagnosis Onset Date Resolution Status Strep pharyngitis acute Essential (primary) hypertension acute Strep pharyngitis acute Strep pharyngitis acute Sore throat noneactive [facility] Work Phone: Evaluation note* Diagnosis Onset Date Resolution Status Strep pharyngitis acute Essential (primary) hypertension acute Strep pharyngitis acute Strep pharyngitis acute Sore throat noneactive Sore throat noneactive [facility] Work Phone: Evaluation note* Diagnosis Onset Date Resolution Status Strep pharyngitis acute Essential (primary) hypertension acute Strep pharyngitis acute Strep pharyngitis acute Sore throat noneactive Constipation acute Family history of colon cancer in mother acute Situational anxiety acute Acute streptococcal pharyngitis acute Sore throat noneactive Sore throat noneactive [facility] Work Phone: Evaluation note* Diagnosis Onset Date Resolution Status Strep pharyngitis acute Essential (primary) hypertension acute Strep pharyngitis acute Strep pharyngitis acute Sore throat noneactive Constipation acute Family history of colon cancer in mother acute Situational anxiety acute Acute streptococcal pharyngitis acute Sore throat noneactive Allergic rhinitis acute Sore throat noneactive [facility] Work Phone: Evaluation note* Diagnosis Onset Date Resolution Status Strep pharyngitis acute Sore throat noneactive Constipation acute Family history of colon cancer in mother acute Situational anxiety acute Acute streptococcal pharyngitis acute Sore throat noneactive Allergic rhinitis acute Sore throat noneactive Sore throat noneactive [facility] Work Phone: Hisxhvk general Narrative - Reported* Type Description Date Medical History hypercholesterolemia Medical History anxiety Medical History hypertension Medical History OAB Medical History INTRADUCTAL AND INFILTRATING PIPPA ANDI BREAST CANCER Medical History CORNARY ARTERY DISEASE MILD Medical History hypokalemia Medical History Subdural hematoma, [facility]ONY FROM [facility] Surgical History left mastectomy with reconstruc tion Surgical History wisdom teeth extract Surgical History hysterectomy Surgical History cholecystectomy Surgical History colonoscopy Surgical History cardiac heart cath Hospitalization History childbirth Hospitalization History see above sx Hospitalization History BLEEDING ON THE [employer] [place] [employer] Other History general [facility] [employer] Other History general Narrative - Reported* Type Description Date Medical History hypercholesterolemia Medical History anxiety Medical History hypertension Medical History OAB Medical History INTRADUCTAL AND INFILTRATING PIPPA ANDI BREAST CANCER Medical History CORNARY ARTERY DISEASE MILD Medical History hypokalemia Medical History Subdural hematomaDR [facility]ONY FROM [facility] Medical History Hypertension Medical History Hyperlipidemia Medical [...] above sx Hospitalization History BLEEDING ON THE [employer] [facility] Other Hospital Discharge instructions* Activity:activity as tolerated. [...] legs and/or calves. * Follow-Up - Neurosurgeon:Physician/Dept/Service: NeurosurgeonDr. Wyatt RayScheduled Date/Time:05-Mar-2021 11:15Location: [facility]; [address] [place], [place] Number: [phone]: 4 week follow up visit; to have CT scan of Head prior to this appointment; Bring Insurance Card and Photo ID * Follow-Up:Physician/Dept/Service: CAT Scan of HeadScheduled Date/Time: 05-Mar-2021 09:30Location: [facility], Radiology Department, 1st floor Registration; [address] [place], [place] Number: [phone]: arrive 15 minutes early for registration; Bring Insurance Card and Photo ID. You have appointment with Dr Anthony at 11:15, after CT scan. [facility] Dis[facility] instructions No data available for this section [facility] Progress note No data available for this section [facility] Reason for referral (narrative)* Diagnostic Procedure Only (Routine) - Pending Review Specialty Diagnoses / Procedures Referred By Miguel Ángel t Referred To Contact US IMAGING Diagnoses Fatigue, unspecified type Procedures US RENAL ARTERY/VEIN US RETROPERITONEAL REAL TIME W/IMAGE LIMITED Ashanti Foote MD [address] [place] [address] Us Imaging Referral ID Status Reason Start Date Expiration Date Visits Requested Visits Authorized [id number] Pending Review Auto-Generat ed Referral 01/03/2022 02/02/2023 1 1 [facility] Summary Purpose Family History No Family History [...] Unknown brother Hypertension Unknown Diabetes mellitus Unknown Relationship Condition Age at Onset Recorded Date/T dipesh Not Specified Malignant neoplasm of colon Unknown sister Malignant neoplasm of colon Unknown brother Hypertension Unknown Diabetes mellitus Unknown brother Unknown Hypertension Unknown Malignant neoplasm Unknown Heart disease Unknown daughter Family history of mental disorder Unknown father Hypertension Unknown Unknown History of stroke Unknown family member Unknown Not Specified Family history of mental disorder Unknow n sister Hypertension Unknown Relationship Condition Age at Onset Recorded Date/T dipesh mother Malignant neoplasm of colon Unknown sister Malignant neoplasm of colon Unknown brother Hypertension Unknown Diabetes mellitus Unknown brother Unknown Hypertension Unknown Malignant neoplasm Unknown Heart disease Unknown daughter Family history of mental disorder Unknown father Hypertension Unknown Unknown History of stroke Unknown family member Unknown mother Family history of mental disorder Unknown sister Hypertension Unknown Advance Directives No Advanced Directives Records Found Advance Directive Response Recorded Date/ Time Advance Directives No January 01 3:17pm Advance Directive Response Recorded Date/ Time Advance Directives No January 01 2:17pm Hospital Course Note MR#: [id number] 2 [facility] Pt. Name: Syed Michelle Admitted: 01/28/2019 [...] W & W/O CONTRAST Ashanti Foote MD [address] [place] [address] Ct Imaging Referral ID Status Reason Start Date Expiration Date Visits Requested Visits Authorized [id number] Pending Review Auto-Generat ed Referral 02/12/2022 03/14/2023 1 1 Reason *Waiting for appt Possible SMA stenosis - recent ER report and CT from [place] on 04/11. This OV note. Thank you. Diagnosis 1 Generalized abdomina l pain (R10.84) Referral Organization [facility] Referring Provider First Name Lon Referring Provider Last Name Paul Referring Provider Specialty Family Medi cine Referred Organization [facility] Vascular Surge ry Referred Provider Mukesh Fam Referred Address [address] [place] [address],[place] [address],[place], [place],[address] Referred Provider Specialty Vascular Jeffry maite Referral Priority Routine General Notes KatyKayla latif 02:35:09 PM >received today. attachments made, notes locked, referral faxed Chief Complaint Ms. SYED MICHELLE is here for neurosurgical follow-up visit.Ms. SYED MICHELLE is here for neurosurgical follow-up visit. Chief Complaint and Reason for Visit Chief Complaint superior mesenteric artery stenosis high bp Chief Complaint headaches chills, nausea/vomiting Reason for Visit Essential (primary) hypertension Family history of cerebral hemorrhage Headache History of subdural hematoma Breast pain, right History of breast cancer Mastitis in female Chief Complaint headaches chills, nausea/vomiting Sore throat Reason for Visit Essential (primary) hypertension Family history of cerebral hemorrhage Headache History of subdural hematoma Breast pain, right History of breast cancer Mastitis in female Strep pharyngitis Sore throat Chief Complaint headaches chills, nausea/vomiting Sore throat Sore throat Reason for Visit Essential (primary) hypertension Family history of cerebral hemorrhage Headache History of subdural hematoma Breast pain, right History of breast cancer Mastitis in female Strep pharyngitis Sore throat Viral URI Sore throat Chief Complaint headaches chills, nausea/vomiting Sore throat Sore throat RENAL F/U Reason for Visit Essential (primary) hypertension Family history of cerebral hemorrhage Headache History of subdural hematoma Breast pain, right History of breast cancer Mastitis in female Strep pharyngitis Sore throat Viral URI Sore throat Chronic kidney disease, stage 3a Hydronephrosis, right Hyperaldosteronism Hyperlipidemia [id number] Hypokalemia Hypomagnesemia Vitamin B12 deficiency Vitamin D deficiency Chief Complaint Sore throat Sore throat RENAL F/U sore throat Reason for Visit Strep pharyngitis Sore throat Viral URI Sore throat Chronic kidney disease, stage 3a Hydronephrosis, right Hyperaldosteronism Hyperlipidemia [id number] Hypokalemia Hypomagnesemia Vitamin B12 deficiency Vitamin D deficiency Strep pharyngitis Chief Complaint Sore throat Sore throat RENAL F/U sore throat sore throat, bp concerns Reason for Visit Strep pharyngitis Sore throat Viral URI Sore throat Chronic kidney disease, stage 3a Hydronephrosis, right Hyperaldosteronism Hyperlipidemia [id number] Hypokalemia Hypomagnesemia Vitamin B12 deficiency Vitamin D deficiency Strep pharyngitis Chief Complaint RENAL F/U sore throat sore throat, bp concerns Sore throat Reason for Visit Chronic kidney disea se, stage 3a Hydronephrosis, right Hyperaldosteronism Hyperlipidemia [id number] Hypokalemia Hypomagnesemia Vitamin B12 deficiency Vitamin D deficiency Strep pharyngitis Essential (primary) hypertension Strep pharyngitis Sore throat Chief Complaint sore throat sore throat, bp concerns Sore throat J02.9 aniexty Reason for Visit Strep pharyngitis Essential (primary) hypertension Strep pharyngitis Strep pharyngitis Sore throat Chief Complaint sore throat sore throat, bp concerns Sore throat J02.9 aniexty sore throat Reason for Visit Strep pharyngitis Essential (primary) hypertension Strep pharyngitis Strep pharyngitis Sore throat Sore throat Chief Complaint sore throat sore throat, bp concerns Sore throat J02.9 aniexty sore throat sore throat, chills Reason for Visit Strep pharyngitis Essential (primary) hypertension Strep pharyngitis Strep pharyngitis Sore throat Constipation Family history of colon cancer in mother Situational anxiety Acute streptococcal pharyngitis Sore throat Sore throat Chief Complaint sore throat sore throat, bp concerns Sore throat J02.9 aniexty sore throat sore throat, chills Sore throat Reason for Visit Strep pharyngitis Essential (primary) hypertension Strep pharyngitis Strep pharyngitis Sore throat Constipation Family history of colon cancer in mother Situational anxiety Acute streptococcal pharyngitis Sore throat Allergic rhinitis Sore throat Chief Complaint Sore throat J02.9 aniexty sore throat sore throat, chills Sore throat sore throat Reason for Visit Strep pharyngitis Sore throat Constipation Family history of colon cancer in mother Situational anxiety Acute streptococcal pharyngitis Sore throat Allergic rhinitis Sore throat Sore throat Chief Complaint Sore throat J02.9 aniexty sore throat sore throat, chills Sore throat sore throat Sore throat Reason for Visit Strep pharyngitis Sore throat Constipation Family history of colon cancer in mother Situational anxiety Acute streptococcal pharyngitis Sore throat Allergic rhinitis Sore throat Sore throat Additional Source Comments INFORMATION SOURCE (unrecogn ized section and content) DATE CREATED AUTHOR 02/01/2019 [facility] DATE CREATED AUTHOR AUTHOR'S ORGANIZ ATION 03/11/2021 [facility] DATE CREATED AUTHOR AUTHOR'S ORGANIZ ATION 04/06/2021 Amanda Huff [facility] DATE CREATED AUTHOR AUTHOR'S ORGANIZ ATION 04/07/2021 [facility] DATE CREATED AUTHOR AUTHOR'S ORGANIZ ATION 02/13/2022 [facility] DATE CREATED AUTHOR AUTHOR'S ORGANIZ ATION 01/29/2023 [facility] DATE CREATED AUTHOR AUTHOR'S ORGANIZ ATION 11/09/2023 [facility] DATE CREATED AUTHOR AUTHOR'S ORGANIZ ATION 02/02/2024 [facility] DATE CREATED AUTHOR AUTHOR'S ORGANIZ ATION 02/22/2024 [facility] DATE CREATED AUTHOR AUTHOR'S ORGANIZ ATION 07/16/2024 [facility] [employer] [facility] DATE CREATED AUTHOR AUTHOR'S ORGANIZ ATION 07/21/2024 Rahat Ugalde [facility] DATE CREATED AUTHOR AUTHOR'S ORGANIZ ATION 08/09/2024 [facility] <item> Privacy Markings (unrecogniz ed section and [...] or prosecute any alcohol or drug abuse patient.[facility] CenterIn the event this information is protected by the Federal Confidentiality of Alcohol and Drug Abuse Patient Records regulations: The Federal rules restrict any use of the information to criminally investigate or prosecute any alcohol or drug abuse patient.[facility] Center[facility] the event this information is protected by the Federal Confidentiality of Alcohol and Drug Abuse Patient Records regulations: The Federal rules restrict any use of the information to criminally investigate or prosecute any alcohol or drug abuse patient.[facility] Center[facility] the event this information is protected by the Federal Confidentiality of Alcohol and Drug Abuse Patient Records regulations: The Federal rules restrict any use of the information to criminally investigate or prosecute any alcohol or drug abuse patient.[facility] Center[facility] the event this information is protected by the Federal Confidentiality of Alcohol and Drug Abuse Patient Records regulations: The Federal rules restrict any use of the information to criminally investigate or prosecute any alcohol or drug abuse patient.[facility] CenterIn the event this information is protected by the Federal Confidentiality of Alcohol and Drug Abuse Patient Records regulations: The Federal rules restrict any use of the information to criminally investigate or prosecute any alcohol or drug abuse patient.[facility] CenterIn the event this information is protected by the Federal Confidentiality of Alcohol and Drug Abuse Patient Records regulations: The Federal rules restrict any use of the information to criminally investigate or prosecute any alcohol or drug abuse patient.[facility] Reason for Visit (unrecogniz ed section and content) Reason Comments Consult Reason Comments Received Outside Medical Records Referra l Documents Care Teams (unrecognized sec tion and content) Team Status: Active Member Role Status Dates Lon Miller MD Primary Care Provider Active Team Status: Inactive Member Role Status Dates Lon Miller MD Primary Care Provider Active Start: April 04, 2024 End: April 04, 2024 Mallorie Guardado APRN Attending Provider Active Start: April 04, 2024 End: April 04, 2024 Team Status: Inactive Member Role Status Dates Lon Miller MD Primary Care Provide r, Attending Provider Active Start: April 11, 2024 End: April 11, 2024 Team Status: Inactive Member Role Status Leny Miller MD Primary Care Provider Active Start: May 21, 2024 End: May 21, 2024 Teresita Ortega APRN Attending Provider Active Start: May 21, 2024 End: May 21, 2024 Team Status: Inactive Member Role Status Leny Miller MD Primary Care Provide r, Attending Provider Active Start: June 07, 2024 End: June 07, 2024 Team Status: Active Member Role Status Leny Miller MD Primary Care Provider Active Start: March 01, 2024 Vladimir Clifton MD Attending Provider Active Star t: March 01, 2024 Team Status: Inactive Member Role Status Leny Miller MD Primary Care Provider Active Start: March 08, 2024 End: March 08, 2024 Vladimir Clifton MD Attending Provider Active Star t: March 08, 2024 End: March 08, 2024 Repeat Photocomposing Machine Operator Relationship Specialty Start Date End Date Lon Miller MD [address] [place] [address] [id number] PCP - General Family Practice 11/21/11 Repeat Photocomposing Machine Operator Relationship Specialty Start Date End Date Lon Miller MD [address] [facility] [place] [phone] PCP - General Family Practice 11/21/11 Repeat Photocomposing Machine Operator Relationship Specialty Start Date End Date Lon Miller MD [address] [facility] [place] [phone] PCP - General Family Practice 11/21/11 Repeat Photocomposing Machine Operator Relationship Specialty Start Date End Date Lon Miller MD [address] [facility] [place] [phone] PCP - General Family Practice 11/21/11 Repeat Photocomposing Machine Operator Relationship Specialty Start Date End Date Lon Miller MD [address] [facility] [place] [phone] PCP - General Family Practice 11/21/11 Repeat Photocomposing Machine Operator Relationship Specialty Start Date End Date Lon Miller MD [address] [facility] [place] [phone] PCP - General Family Practice 11/21/11 Team Status: Inactive Member Role Status Dates Lon Miller MD Primary Care Provider Active Mukesh Fam MD Attending Provider Active Team Status: Inactive Member Role Status Dates Lon Miller MD Primary Care Provider, Attending Lars lindsey Active Team Status: Inactive Member Role Status Dates Lon Miller MD Primary Care Provide r, Attending Provider Active Start: December 17, 2023 End: December 17, 2023 Team Status: Inactive Member Role Status Dates Lon Miller MD Primary Care Provide r, Attending Provider Active Start: December 24, 2023 End: December 24, 2023 Team Status: Inactive Member Role Status Dates Lon Miller MD Primary Care Provider Active Start: January 22, 2024 End: January 22, 2024 PATRICIA Gonzalez Attending Provider Active S tart: January 22, 2024 End: January 22, 2024 Repeat Photocomposing Machine Operator Relationship Specialty Start Date End Date Lon Miller MD PCP - General 04/02/21 Team Status: Inactive Member Role Status Dates Lon Miller MD Primary Care Provider Active Start: February 04, 2024 End: February 04, 2024 Teresita Ortega APRN Attending Provider Active Start: February 04, 2024 End: February 04, 2024 Repeat Photocomposing Machine Operator Relationship Specialty Start Date End Date Lon Miller MD [address] [place] [address] [place] [phone] PCP - General 04/02/21 Team Status: Inactive Member Role Status Dates Lon Miller MD Primary Care Provider Active Start: June 08, 2024 End: June 08, 2024 Wendy HAYS APRN Attending Provider Active Start: June 08, 2024 End: June 08, 2024 Team Status: Inactive Member Role Status Dates Lon Miller MD Primary Care Provider Active Start: June 08, 2024 End: June 08, 2024 Wendy Chávez APRN Attending Provider Active S tart: June 08, 2024 End: June 08, 2024 Team Status: Inactive Member Role Status Dates Lon Miller MD Primary Care Provider Active Start: June 28, 2024 End: June 28, 2024 Teresita Ortega APRN Attending Provider Active Start: June 28, 2024 End: June 28, 2024 Team Status: Inactive Member Role Status Dates Teresita Ortega APRN Attending Provider Active Start: June 28, 2024 End: June 28, 2024 Team Status: Active Member Role Status Dates NON STAFF Primary Care Provider Active Team Status: Inactive Member Role Status Dates Teresita Ortega APRN Attending Provider Active Start: June 28, 2024 End: June 28, 2024 NON STAFF Primary Care Provider Active Start: June 28, 2024 End: June 28, 2024 Team Status: Inactive Member Role Status Dates NON STAFF Primary Care Provider Active Start: August 02, 2024 End: August 02, 2024 Teresita Ortega APRN Attending Provider Active Start: August 02, 2024 End: August 02, 2024 Team Status: Inactive Member Role Status Leny Ortega APRN Attending Provider Active Start: August 02, 2024 End: August 02, 2024 Goals (unrecognized section and content) Goals may [...] BE BASED ON THE PRIMARY CLINICAL RECORDS. [facility] [employer], [facility]. provides no warranty or guarantee of the accuracy or completeness of information in this document.
[2024-09-29 11:12] LABS: Basophils Absolute Auto 0.1 10^3/uL (0.0-0.1); Eosinophils Absolute Auto 0.2 10^3/uL (0.0-0.7); Eosinophils Percent Auto 3.9 % (0.9-7.0); Hematocrit 37.3 % (36.0-48.0); Immature Granulocytes Abs Auto 0.01 10^3/uL (0.00-0.03); Immature Granulocytes Pct Auto 0.2 % (0.0-0.5); Lymphocytes Absolute Auto 1.5 10^3/uL (1.2-3.8); Lymphocytes Percent Auto 29.3 % (20.5-60.0); Mean Corpuscular HGB Conc 32.2 g/dL (29.9-35.2); Mean Corpuscular Hemoglobin 29.6 pg (26.7-34.0); Mean Corpuscular Volume 91.9 fL (81.0-99.0); Monocytes Absolute Auto 0.4 10^3/uL (0.3-0.8); Monocytes Percent Auto 8.4 % (1.7-12.0); Neutrophils Absolute Auto 2.9 10^3/uL (1.4-6.5); Neutrophils Percent Auto 57.2 % (43.0-75.0); Platelet Count 188 10^3/uL (150-450); Red Blood Count 4.06 10^6/uL (4.20-5.40); Red Cell Distribution Width 12.7 % (11.0-15.0); White Blood Count 5.1 10^3/uL (4.0-11.0)
[2024-09-29 11:40] LABS: Alanine Aminotransferase 27 U/L (14-59); Albumin Globulin Ratio 1.2; Albumin Level 3.6 g/dL (3.4-5.0); Alkaline Phosphatase 63 U/L (46-116); Anion Gap 8.2; Aspartate Amino Transferase 16 U/L (15-37); BUN Creatinine Ratio 13.5; Bilirubin Total 0.6 mg/dL (0.2-1.0); Calcium 8.8 mg/dL (8.5-10.1); Carbon Dioxide 28.9 mmol/L (21.0-32.0); Chloride 110 mmol/L (98-107); Chol HDL Ratio 2.3; Cholesterol 129 mg/dL (<=200); Estimated GFR (African America >60 (>=60 mL/min/1.73m^2); Estimated GFR (Non-African Ame 52 (>=60 mL/min/1.73m^2); Glucose 91 mg/dL (74-106); HDL Cholesterol 56 mg/dL (40-60); Potassium 4.1 mmol/L (3.5-5.1); Sodium 143 mmol/L (136-145); Thyroid Stimulating Hormone 1.294 uIU/mL (0.358-3.740); Total Protein 6.6 g/dL (6.4-8.2); Triglycerides 85 mg/dL (<=150)
[2024-09-30 08:10] LABS: Vitamin B12 1666 pg/mL (232-1245)
== END 2024-09-29 10:56 | disposition home or self-care (01) ==
PROVIDERS: PCP Family Medicine; Visit Provider Family Medicine
DX: E78.5 Hyperlipidemia, unspecified (principal); E53.8 Deficiency of other specified B group vitamins; E83.42 Hypomagnesemia; N18.31 Chronic kidney disease, stage 3a; I12.9 Hypertensive chronic kidney disease with stage 1 through stage 4 chronic kidney disease, or unspecified chronic kidney disease
CPT/HCPCS: 36415; 80053; 80061; 82607; 83735; 84443; 85025

== ENCOUNTER 2024-10-18 09:50 | Outpatient (OUT) | payer MEDICARE, OTHER, SELFPAY ==
--- NOTE | 2024-10-18 10:02 | CT_ITS ---
The [address] [address] Patient Name: SYED CHAVEZ MRN: [id number] date: 1950 Sex: F Assigned Patient Location: CT Current Patient Location: CT Accession/Order Number: [id number] Exam Date: 10/18/2024 09:53 Report Date: 10/21/2024 05:51 At the request of: LON MILLER Procedure: CT lung screening low-dose EXAM: CT lung screening low-dose CLINICAL INDICATION: Nicotine Dependence F17.20 COMPARISON: CT chest 03/18/2018 TECHNIQUE: LOW-DOSE LUNG CANCER SCREENING CT (without IV contrast). Automatic exposure control radiation dose reduction technology was utilized. FINDINGS: Lack of intravenous contrast and with this technique limits evaluation of vascular and soft tissue structures. LUNGS: Nodules: RUL: None. RML: 3 mm subpleural solid nodule (series 4, image 90), stable. RLL: None. CELESTINA: None. LLL: None. AIRWAYS: Normal. LOWER NECK: Normal. LYMPH NODES: Normal. MEDIASTINUM AND LEIGHA: Normal. HEART AND VASCULAR STRUCTURES: Mild coronary artery calcifications. CORONARY ARTERIES: Coronary calcifications are mild. PLEURA AND PERICARDIUM: Normal. CHEST WALL: Normal. UPPER ABDOMEN: Normal. BONES: No suspicious lesions. CT/CT lung screening low-dose IMPRESSION: --- Stable tiny right middle lobe nodule consistent with benign etiology. LUNG-RADS category: 2 (<1% chance of malignancy) Recommendation: Continue annual screening with low-dose lung cancer screening chest CT as long as the patient qualifies. Recommend smoking cessation (if current smoker), or continuation of smoking cessation (if prior smoker). Annual screening for lung cancer with low-dose computed tomography is recommended in adults ages 50-80 who have a 20 pack-year smoking history and currently smoke or have quit within the past 15 years. Screening should be discontinued once a person has not smoked for 15 years or develops a health problem that significantly lower life expectancy or the ability or willingness to have curative lung surgery. Lung-RADS version utilized: v2022 Electronically authenticated by: ARELY MEDEIROS Date: 10/21/2024 05:51
== END 2024-10-18 09:51 | disposition home or self-care (01) ==
LOC: CT 09:50
PROVIDERS: PCP Family Medicine; Visit Provider Family Medicine
DX: F17.210 Nicotine dependence, cigarettes, uncomplicated (principal)
CPT/HCPCS: 71271

== ENCOUNTER 2024-12-06 06:53 | Outpatient (OUT) | payer MEDICARE, OTHER, SELFPAY ==
--- NOTE | 2024-12-06 | PCN_ITS ---
CARDIAC STRESS TEST Requesting Physician: Chad Barillas M.D. Procedure Date: 12/06/2024 Patient presented for stress testing. REASON FOR THE TEST: Evaluation for coronary artery disease. At baseline, patient was noted to have sinus rhythm with normal axis and normal intervals. The resting heart rate was 65 beats per minute, with a blood pressure of 154/85 mm/Hg. Patient underwent a Lexiscan study with infusion. The maximum heart rate noted was 89 beats per minute, and the blood pressure was 154/85 mm/Hg, with a 60% expected heart rate achieved. With infusion, there was no evidence of AV block. IMPRESSION: 1. Baseline EKG was normal. 2. With infusion, there was some degree of ST segment depression noted in the inferior and inferolateral leads, but did not meet criteria sufficient for ischemic diagnosis. 3. No arrhythmias were noted. 4. Perfusion study to be dictated separately by Radiology. [facility]
--- OUTSIDE RECORDS SUMMARY | 2024-12-06 06:57 | XMS_ITS | CCD ---
Author Organization [facility] Care Team Providers Care [place] Paver Name Role Phone PHYSICIAN, DEFAULT Admitting Unavailable PHYSICIAN, DEFAULT Attending Unavailable PHYSICIAN, DEFAULT Admitting Unavailable PHYSICIAN, DEFAULT Attending Unavailable PHYSICIAN, DEFAULT Admitting Unavailable PHYSICIAN, DEFAULT Attending Unavailable ELTAHAWY, EHAB A Admitting Unavailable ELTAHAWY, EHAB A Attending Unavailable LON MILLER Referring Unavailable LON MILLER Primary Care Unavailable PHYSICIAN, DEFAULT Admitting Unavailable PHYSICIAN, DEFAULT Attending Unavailable LON MILLER Primary Care Unavailable GIO JAVED Admitting Unavailable GIO JAVED Attending Unavailable LON MILLER Primary Care Unavailable STRPAGE MONTALVO Referring Unavailable Unknown, Pcp Unavailable Unavailable Ray, Analy Unavailable Unavailable Unknown, Referring Provider Unavailable Unav ailable Lon Miller Unavailable Lon Miller MD Primary Care Provider [phone] Christian Valdez Unavailable Loi Buenrostro Unavailable Vladimir [...] DR LON Sarah Primary Care Unavailable BAKHOUS, AZOBDULIO Admitting Unavailable BAKHOUS, AZIZ Attending Unavailable BAKHOUS, AZIZ Consulting Unavailable ADELA ., MEDINA Admitting Unavailable ADELA ., MEDINA Attending Unavailable ADELA Evans, MEDINA Consulting Unavailable PAUL, DR LON Sarah Primary [...] Unavailable MD Lon Miller Primary Care Provider [phone] MD Mukesh Fam Attending Provider Geneva Coats Unavailable LON MILLER Primary Care Physician MD Lon Miller Primary Care Provider MD Mukesh Fam Attending Provider MD Lon Miller Attending Provider Lon Miller MD Primary Care Provider GERMAN WORRELL Referring UnavailLON Hightower Primary Care Unavailable Lon Miller MD Primary Care Provider OLGA FARRAR Attending Unavailable LON MILLER Primary Care Unavailable MD Lon Miller Primary Care Provider THEA Ortega Attending Provider [phone] ETIENNE, HARJEETIZ Referring Unavailable Flores Marie Attending Unavailable Sharad Asencio Referring Unavailable Sharad Asencio Attending Unavailable Sharad Asencio Admitting Unavailable Sharad Asencio Attending Unavailable NON STAFF Primary Care Provider Unavailanderson e NON STAFF Primary Care Unavailable Jordan Teresita L Attending Unavailable Jordan Teresita L Admitting Unavailable Lon Miller Primary Care Unavailable Ortega, Teresita L Attending Unavailable Ortega, Teresita L Admitting Unavailable Lon Miller Attending Unavailable Lon Miller Primary Care Unavailable Fidel Milleria E Admitting Unavailable Ortega, Teresita L Admitting Unavailable Ortega, Teresita L Attending Unavailable Unavailable Primary Care Provider UnavailSTELLA Elizabeth Attending Unavailable LON MILLER Referring Unavailable Teresita Ortega APRN Attending Provider [phone] ELCHAD CHACON Attending Unavailable CHAD BARILLAS Attending Unavailable Allergies Allergy Classification Reported Allergen(s) Allergy Type Date of Onset Reaction(s) Facility Sulfonamides (antibiotic) (4 sources) Sulfonamides (Antibiotic); Translations: [Sulfa Drugs] Drug Allergy Unknown [facility] (20 sources) Sulfonamides (Antibiotic); Translations: [SULFA (SULFONAMIDE ANTIBIOTICS)] Drug allergy (disorder) 012 Vomiting [facility] Repository Comment on above: Onset Date: 05/28/20 21 (20 sources) linaclotide; Translations: [LINACLOTIDE] Drug Allergy 022 Unknown [facility] (20 sources) Sulfonamides (Antibiotic) Drug Allergy 012 Hives, [facility] (20 sources) Sulfamethoxazole / Trimethoprim Drug Allergy upset stomach [facility] Other (1 source) linaclotide Drug Allergy [facility] Repository (20 sources) buPROPion Drug Allergy 021 Unknown, [facility] Comment on above: Onset Date: 05/28/20 21 (15 sources) buPROPion Drug Allergy 013 Unknown [facility] Other (15 sources) busPIRone Drug Allergy 021 Unknown [facility] Other (20 sources) Doxycycline Drug Allergy 013 Unknown, [facility] Comment on above: Onset Date: 05/28/20 21 (20 sources) Lisinopril Drug Allergy Unknown, Hives [facility] Comment on above: Onset Date: 05/28/20 (20 sources) methylPREDNISolone Drug Allergy Unknown, Comment:Medro l dose pack [facility] Comment on above: Onset Date: 05/28/20 21 (20 sources) zolpidem Drug Allergy Unknown [facility] Comment on above: Onset Date: 05/28/20 (4 sources) Sulfonamides (Antibiotic); Translations: [sulfa drugs] Drug allergy [facility] (18 sources) busPIRone; Translations: [buspirone] Drug Allergy Unknown [facility] Comment on above: Onset Date: 05/28/20 (16 sources) Sulfamethoxazole; Translations: [sulfamethoxazole] Drug Allergy upset stomach [facility] (16 sources) Trimethoprim; Translations: [trimethoprim] Drug Allergy upset stomach [facility] (1 source) ALLERGIES NOT ON FILE; Translations: [ALLERGIES NOT ON FILE] Propensity to adverse reactions (disorder) [facility] Repository (1 source) buPROPion Drug Allergy [facility] Repository (1 source) Doxycycline Drug Allergy [facility] Rep[facility] (1 source) linaclotide Drug Allergy [facility] Rep[facility] (1 source) Lisinopril Drug Allergy [facility] Rep[facility] (1 source) methylPREDNISolone Drug Allergy [facility] Repository (1 source) Sulfonamides (Antibiotic) Drug allergy (disorder) [facility] Rep[facility] (1 source) zolpidem Drug Allergy [facility] Repository (2 sources) Corticosteroids and derivatives Drug Allergy Unknown [facility] (2 sources) linaclotide Drug Allergy Unknown [facility] (2 sources) Lisinopril Allergy to substance [facility] (2 sources) Tetracycline (class of antibiotic) Drug Allergy [facility] Medications Current Medications Medication Drug Class(es) Dates [...] tablet (20 sources) HMG-CoA Reductase Inhibitor Start: take 1 tablet by mouth once daily Atorvastatin 80 mg tablet Active 0 .ROUTE .COMPLEX 90 August 29, 2024 4:34pm TAKE 1 TABLET BY MOUTH EVERY DAY Start: 03-27-2017 End: 08-29-2024 take 1 tablet by mouth once daily Atorvastatin 80 mg tablet Discontinued 80 MG PO Daily July 02, 2021 11:00pm August 29, 2024 4:34pm Atorvastatin Anand cium TABS Quantity: 0 Refills: 0 Ordered: 05-Mar-2021 DO Active Comment on above: Take 80 mg by mouth once daily. carvedilol 25 mg oral tablet (20 sources) alpha-Adrenergic Rudy, beta-Adrenergic Rudy Start: 01-26-2019 take 1 tablet by mouth twice daily Carvedilol 25 mg tablet Active 25 MG PO Twice daily July 02, 2021 11:00pm Carvedilol TABS Quantity: 0 Refills: 0 Ordered: 05-Mar-2021 DO Active Comment on above: Take 25 mg by mouth twice daily. cefdinir 300 mg oral capsule (2 sources) Cephalosporin Antibacterial Start: 023 take 1 capsule by mouth every twelve [...] by mouth twice daily at mealtime Hydralazine 50 mg tablet Active 1 TAB PO Twice daily December 16, 2023 12:00am FreeTextSi tablet with food Orally Twice a [...] mouth three times daily with meals. hydrOXYzine pamoate 25 mg oral capsule (9 sources) Antihistamine Start: take 1 tablet by mouth twice daily as needed for anxiety Hydroxyzine Hcl 25 mg tablet Active 0 .ROUTE .COMPLEX July 06, 2024 12:21pm TAKE 1 TABLET BY MOUTH TWICE A DAY NEEDED FOR ANXIETY Start: 07-06-2024 take 1 tablet by carlos a th twice daily as needed for anxiety Hydroxyzine Hcl Active 0 .ROUTE .COMPLEX July 06, 2024 1:21pm TAKE 1 TABLET BY MOUTH TWICE A DAY NEEDED FOR ANXIETY Start: 06-07-2024 End: 07-06-2024 take 1 tablet by mouth twice daily as needed for anxiety Hydroxyzine Hcl 25 mg tablet Discontinued 25 MG PO Twice daily as needed for anxiety June 06, 2024 11:00pm July 06, 2024 12:21pm 24 hr isosorbide mononitrate 30 mg extended [...] oral tablet (20 sources) Start: 04-19-2019 take 1 tablet by mouth once daily Magnesium Oxide 400 mg magnesium tablet Active 400 MG PO Daily July 02, 2021 11:00pm take 1 capsule by mouth once rubin ly magnesium oxide 400 mg magnesium capsule Take 1 capsule (400 mg) by mouth once daily. Active Comment on above: Take 1 tablet by carlos a th. mecobalamin 1 mg chewable tablet (12 sources) Start: 2023 take 1 tablet by mouth once daily Mecobalamin (Vitamin B12) 1,000 mcg tablet,chewable Active 1000 MCG PO Daily March 07, 2024 11:00pm methylPREDNISolone 4 mg oral tablet (1 source) [...] bedtime) for constipation, 100 tab(s), Refill(s) 0, [facility]/pharmacy #[id number], 173, cm, 06/30/24 10:17:00 EDT, Height/Length Dosing, 54.8, kg, 06/30/24 10:17:00 EDT, Weight Dosing Start Date: 06/30/24 Status: Ordered sertraline 50 mg oral tablet (8 sources) [...] Aldosterone Antagonist Start: 12-16-19 End: 03-08-20 take 1 tablet by mouth once daily as needed Spironolactone 25 mg tablet Active 25 MG PO Daily as needed March 08, 2024 9:26am Start: 05-29-2021 take 0.5 tablet by m outh once daily Spironolactone 25 MG 1/2 tablet Orally Once a day for 90 day(s) May, Not-Taking Start: 05-29-2021 spironolactone ( Aldactone) 25 MG tablet Take 12.5 mg by mouth Daily as needed Active Comment on above: Take 25 mg [...] / HYDROcodone bitartrate 5 mg oral tablet (17 sources) Opioid Agonist Start: 12-10-2018 End: 07-03-2021 take 1 tablet by mouth every four to six hours as needed for pain Hydrocodone-Aceta minophen (Melrose) 5-325 mg Tablet Discontinued 1 TAB PO EVERY 4-6 HOURS as needed for Pain 7 3 December 10, 2018 July 03, 2021 8:29am ALPRAZolam 0.25 mg oral tablet (7 sources) Benzodiazepine Start: 04-06-2018 ALPRAZolam (XANAX) 0.25 mg tablet amoxicillin 500 mg oral capsule (20 sources) Penicillin-class Antibacterial Start: 09-14-2024 End: 2024 take 1 capsule by mouth twice daily Amoxicillin 500 mg capsule Discontinued 500 MG PO Twice daily 31 07September 14, 2024 12:00am 2024 12:20pm Start: 06-08-2024 End: 08-02-2024 take 1 capsule by mouth twice daily Amoxicillin 500 mg capsule Discontinued 500 MG PO Twice daily 31 07June 07, 2024 11:00pm August 02, 2024 3:19pm Start: 01-22-2024 End: 03-08-2024 take 1 capsule by mouth three times daily Amoxicillin 500 mg capsule Discontinued 500 MG PO Three times daily 01 05January 21, 2024 11:00pm March 08, 2024 9:25am Start: 08-11-2023 take 1 tablet by [facility] every twelve hours Amoxicillin 500 MG 1 tablet Orally Twice a day for 10 days Jul, Active Start: 06-23-2023 take [address] [facility] every twelve hours Amoxicillin 500 MG 1 capsule Orally Twice a day for 10 days Jun, Not-Taking Start: 04-29-2023 take 1 capsule by mo [facility] every twelve hours Amoxicillin 500 MG 1 capsule Orally Twice a day for 10 days Apr, Active Start: 01-12-2023 take 1 capsule by mo [facility] every eight hours Amoxicillin 500 MG 1 capsule Orally three times a day for 10 day(s) Jan, Active Start: 04-11-2022 take 1 capsule by mo [facility] every eight hours Amoxicillin 500 MG 1 capsule Orally three times a day for 10 day(s) Apr, Active {1 (ascorbic acid 7540 MG / polyethylene glycol 3350 08231 MG / potassium chloride 1200 MG / sodium ascorbate 57115 MG / sodium chloride 3200 MG Powder for Oral Solution) / 1 (polyethylene glycol 3350 715908 MG / potassium chloride 1000 MG / sodium chloride 2000 MG / sodium sulfate 9000 MG Powder for Oral Solution) } Pack [Plenvu] (3 sources) Osmotic Laxative, Vitamin C Start: 05-30-2021 Plenvu 140 GM dose 1 pouch a t 4pm, dose 2 pouch A & B at 11pm Orally BID for 1 days BIN:[id number]: CNRXGROUP:[id number] May, Not-Taking Start: 05-30-2021 azithromycin 250 mg oral tablet (20 sources) Macrolide Antimicrobial Start: 04-11-2024 End: 05-21-2024 Azithromycin 250 mg tablet Discontinued 0 PO .COMPLEX April 10, 2024 11:00pm May 21, 2024 12:42pm For 250 mg dose pack: take 500 mg today (day 1), then 250 mg for 4 days (days 2-5) PO Start: 04-11-2024 End: 05-21-2024 Azithromycin Discontinued 0 [...] Cephalosporin Antibacterial Start: 05-21-2024 End: 06-28-2024 take 1 capsule by mouth every twelve hours Cephalexin 500 mg capsule Discontinued 500 MG PO Q12H 31 07May 20, 2024 11:00pm June 28, 2024 11:24am Start: 12-24-2023 End: 03-08-2024 take 1 capsule by mouth three times daily Cephalexin 500 mg capsule Discontinued 500 MG PO Three times daily 01 05December 23, 2023 11:00pm March 08, 2024 9:25am Start: 03-17-20[address] [facility] every twelve hours Cephalexin 500 MG 1 capsule Orally twice a day for 10 Mar, Active docusate sodium 50 mg / sennosides, fpc 8.6 mg oral tablet (20 sources) Start: 12-17-2021 take 2 tablets by mouth once daily at bedtime SENNA PLUS 8.6-50 mg per tablet Take 2 tablets by mouth daily at bedtime. 0 12/17/2021 Active Start: 05-30-2021 End: 03-08-2024 Sennosides-Docusate Sodium ( Senexon-S) 8.6-50 mg tablet Discontinued 1 TAB PO As Directed July 02, 2021 11:00pm March 08, 2024 9:26am Comment on above: Take [address] [facility] daily at bedtime. FLUoxetine 10 [...] nasal route once daily Fluticasone Propionate 50 mcg/actuation spray,suspension Discontinued 2 SPRAY INTRANASAL Daily December 16, 2023 12:00am December 17, 2023 11:13am [employer]Text[employer] sprays in each nostril Nasally Once [...] Receptor Rudy Start: 07-03-2021 End: 03-08-2024 take 1 tablet by mouth twice daily Losartan 25 mg Tablet Discontinued 25 MG PO Twice daily July 02, 2021 11:00pm March 08, 2024 9:26am Start: 01-27-2019 take 1 tablet by carlos [...] penicillin v potassium 500 mg oral tablet (11 sources) Start: 04-04-20 End: 05-21-20 take 1 tablet by mouth three times daily Penicillin V Potassium 500 mg tablet Discontinued 500 MG PO Three times daily 10 08April 03, 2024 11:00pm May 21, 2024 12:43pm potassium chloride 20 meq oral tablet (20 sources) Start: 06-30-20 take 1 tablet by mouth once daily Potassium Chloride (Eqv-K-Tab) 20 mEq oral tablet, extended release 20 mEq = 1 tab(s), Oral, Daily, Refills(s) 0, Prophylaxis Start Date: 06/30/24 Status: Ordered Start: 12-16-2023 take 1 tablet by carlos a th once daily at mealtime Potassium Chloride 20 mEq tablet extended release Active 20 MEQ PO Daily December 16, 2023 12:00am FreeTextSi tablet with food Orally Once a day; Note: Source Status: Taking; Provider: Etienne Gilbert Start: 05-02-2019 KLOR-CON M20 2 0 mEq tablet Take 20 [...] Not-Taking promethazine hydrochloride 25 mg oral tablet (17 sources) Phenothiazine Start: 12-10-2018 End: 07-03-2021 take 1 tablet by mouth every six hours as needed for nausea Promethazine 25 mg Tablet Discontinued 25 MG PO Q6H as needed for Nausea December 10, 2018 12:00am July 03, 2021 8:29am Sennosides (Senokot) 8.6 mg tablet (6 sources) Start: 06-07-2024 End: 09-14-2024 take 1 tablet by mouth once daily Sennosides (Senokot) 8.6 mg tablet Discontinued 8.6 MG PO Daily June 06, 2024 11:00pm September 14, 2024 2:15pm Start: 06-07-2024 take 1 tablet by carlos a th once daily Sennosides (Senokot) 8.6 mg tablet Active 8.6 MG PO Daily June 07, 2024 12:00am sodium chloride 1000 mg oral tablet (4 [...] on above: Take 2 tablets by mo [facility] three times daily. Problems Active Problems Problem Classification Problem Date Documented Da te Episodic/Chronic Abdominal pain (20 sources) Unspecified abdominal pain; Translations: [Generalized abdominal pain] Onset: 5 Episodic Acute and chronic tonsillitis (2 sources) Tonsillitis; Translations: [Acute recurrent tonsillitis, unspecified] 10-04-2024 Episodic Acute and unspecified renal failure (1 [...] kidney] Onset: 3 Episodic Cancer of breast (9 sources) Malignant tumor of breast ; Translations: [Malignant neoplasm of unspecified site of unspecified female breast] Onset: 2 10-07-2021 Chronic Cancer of breast (20 sources) History of malignant neoplasm of breast; Translations: [Personal history of malignant neoplasm of breast] Onset: 2 Episodic Cardiac and circulatory congenital anomalies (12 sources) Congenital anomaly of cerebrovascular system; Translations: [...] disease (20 sources) Atherosclerotic heart disease of [place] coronary artery without angina pectoris; Translations: [Atherosclerosis [...] space of neuraxis; Translations: [Subdural hemorrhage] Episodic Miscellaneous mental health disorders (15 sources) [...] D deficiency; Translations: [Vitamin D deficiency, unspecified] Onset: 4 Chronic Nutritional deficiencies (18 sources) Cobalamin deficiency; Translations: [Deficiency of other specified B group vitamins] 03-08-2024 Episodic Osteoarthritis (20 sources) Arthritis of hand; Translations: [Primary osteoarthritis, unspecified hand] Chronic Other and unspecified benign neoplasm (14 sources) Cavernous hemangioma; Translations: [Hemangioma unspecified site] 12-31-2023 Episodic Other and unspecified benign neoplasm (1 source) History of polyp of colon; Translations: [Personal history of colonic polyps] Onset: 4 Episodic Other circulatory disease (15 sources) Elevated blood-pressure reading without diagnosis of hypertension; Translations: [Elevated blood-pressure reading, without diagnosis of hypertension] Episodic Other circulatory disease (15 sources) History of subdural hematoma; Translations: [Personal [...] Episodic Other diseases of kidney and ureters (17 sources) Hydronephrosis; Translations: [Unspecified hydronephrosis] Onset: 3 Episodic Other diseases of kidney and ureters (1 source) Acquired renal cyst without neoplastic change; Translations: [Cyst of kidney, acquired] Onset: 3 Episodic Other diseases of kidney and ureters (3 sources) Cyst of kidney 09-07-2023 Episodic Other ear and sense organ disorders (2 sources) Sensorineural hearing loss, bilateral; Translations: [Sensorineural hearing loss, bilateral] Onset: 3 09-29-2024 Chronic Other endocrine disorders (20 sources) Hyperaldosteronism; Translations: [...] Episodic Other nutritional; endocrine; and metabolic disorders (9 sources) Hypomagnesemia; Translations: [Disorders of magnesium metabolism] Onset: 9 Chronic Other nutritional; endocrine; and metabolic disorders (20 sources) Hypomagnesemia; Translations: [Hypomagnesemia] 01-23-2024 Chronic Other nutritional; endocrine; and metabolic disorders (15 sources) Body mass index less than 20; Translations: [Body mass index (BMI) 19.9 or less, adult] Episodic Other upper respiratory disease (19 sources) Allergic rhinitis; Translations: [Allergic rhinitis, unspecified] Onset: 7 06-28-2024 Chronic Other upper respiratory disease (3 sources) Allergic rhinitis, unspecified; Translations: [Allergic rhinitis, cause unspecified] 06-28-2024 Chronic Other upper respiratory disease (2 sources) Seasonal allergic rhinitis; Translations: [Other seasonal allergic rhinitis] Onset: 4 09-29-2024 Chronic Other upper respiratory infections (15 sources) [...] Translations: [Insomnia, unspecified] Episodic Residual codes; unclassified (19 sources) Family history of cancer of colon; Translations: [Family history of malignant neoplasm of digestive organs] 07-03-2021 Episodic Comment on above: SISTER Residual codes; unclassified (15 sources) Family history of stroke; Translations: [Family [...] of back] Onset: 7 Episodic Substance-related disorders (16 sources) Nicotine dependence, cigarettes, uncomplicated; Translations: [Smoker] [...] Translations: [Frequency of micturition] Onset: 09-14-2014 Episodic Malaise and fatigue (20 sources) Other fatigue; Translations: [Fatigue] Onset: 10-20-2012 10-20-2012 Episodic Noninfectious gastroenteritis (15 sources) Non-infective enteritis and colitis; Translations: [Noninfective gastroenteritis and colitis, unspecified] Onset: 06-24-2017 Episodic Nonspecific chest pain (10 sources) Chest pain, unspecified; Translations: [Chest pain] Onset: 02-12-2015 02-12-2015 Episodic Other aftercare (1 source) Other care home (current) drug therapy; Translations: [OTH RESIDENTIAL CURRENT DRUG THERAPY] Onset: 09-01-2022 Episodic Other and unspecified benign neoplasm (3 sources) Adrenal adenoma; Translations: [Benign neoplasm of unspecified adrenal gland] Onset: 11-03-2022 Episodic Other lower respiratory disease (1 source) Shortness of breath; Translations: [SHORTNESS OF BREATH] Onset: 10-19-2018 Episodic Other screening for suspected conditions (not mental disorders or infectious disease) (20 sources) Abnormal result of other cardiovascular function study; Translations: [Cardiovascular stress test abnormal] Onset: 02-12-2015 02-12-2015 Episodic Residual codes; unclassified (9 sources) Amnesia; Translations: [Other amnesia] Onset: 10-20-2012 [...] LT BREAST AND NIPPLE] Onset: 09-01-2022 Episodic Residual codes; unclassified (2 sources) FH: Cardiovascular disease; Translations: [Family history of ischemic heart disease and other diseases of the circulatory system] Onset: 08-23-2020 09-29-2024 Episodic Unclassified (3 sources) Malignant neoplasm of breast in remission 08-31-2023 Results Test Name Value Interpretation Reference Range Facility Office Visiton 11-07-2024 Follow-up visit [id number] Syed Michelle 1950 F Date Provider Department Center 11/07/2024 [id number], CHAD CARD [facility] Family History Problem Relation Age of Onset Other Mother Aneurysm Father Hypertension Father Hypertension Brother Family Status - Relation Status Age at Mother Father Brother Level of Service:04624 [place] OFFICE/OUTPATIENT ESTABLISHED LOW MDM 20 MIN Normal [facility] Basophils Auto (Bld) [#/Vol] on 09-29-2024 Basophils (Bld) [#/Vol] Automated basophil count 0.0-0.1 [facility] Basophils/100 WBC Auto (Bld) on 09-29-2024 Basophils/100 WBC (Bld) Automated basophil % 0.2-2.0 [facility] Cholesterol in LDL Calc [Mas s/Vol]on 09-29-2024 Cholesterol in LDL [Mass/Vol] Cholesterol in LDL [Mass/volume] in Serum or Plasma by calculation [facility] Comment on above: <100 mg/dl [id number] 0-129 mg/dl NEAR OR ABOVE [id number] mg/dl BORDERLINE [id number] mg/dl HIGH>190 mg/dl VERY HIGH Cholesterol in VLDL Calc [Ma ss/Vol]on 09-29-2024 Cholesterol in VLDL [Mass/Vol] Cholesterol in VLDL [Mass/volume] in Serum or Plasma by calculation [facility] Eosinophils/100 WBC Auto (Bl d)on 09-29-2024 Eosinophils/100 WBC (Bld) Automated eosinophil % 0.9-7.0 [facility] Erythrocyte distribution wid th Auto (RBC) [Ratio]on 09-29-2024 Erythrocyte distribution width (RBC) [Ratio] Erythrocyte distribution width [Ratio] by Automated count 11.0-15.0 [facility] Estimated glomerular filtrat ion rate (GFR) non- Americanon 09-29-2024 GFR/1.73 sq M.predicted among non-blacks MDRD (S/P/Bld) [Vol rate/Area] Estimated glomerular filtration rate (GFR) non- Low >=60 mL/min/1.73 m 2 [facility] Globulin Calc (S) [Mass/Vol] on 09-29-2024 Globulin (S) [Mass/Vol] Serum globulin measurement by calculation (mass/volume) [facility] Hematocrit Auto (Bld) [Volum e fraction]on 09-29-2024 Hematocrit (Bld) [Volume fraction] Hematocrit [Volume Fraction] of Blood by Automated count 36.0-48.0 [facility] Hemoglobin [Mass/volume] in Bloodon 09-29-2024 Hemoglobin (Bld) [Mass/Vol] Hemoglobin [Mass/volume] in Blood 12.0-16.0 [facility] [facility] Laboratory - Chemistry and C hemistry - challengeon 09-29-2024 Albumin [Mass/Vol] 3.6 g/dL 3.4-5.0 [facility] ALP [Catalytic activity/Vol] 63 U/L 46-116 [facility] ALT [Catalytic activity/Vol] 27 U/L 14-59 [facility] AST [Catalytic activity/Vol] 16 U/L 15-37 [facility] Bilirubin [Mass/Vol] 0.6 mg/dL 0.2-1.0 [facility] Calcium [Mass/Vol] 8.8 mg/dL 8.5-10.1 [facility] Chloride [Moles/Vol] 110 mmol/L High 98-107 [facility] Cholesterol [Mass/Vol] 129 mg/dL <=200 [facility] Cholesterol in HDL [Mass/Vol] 56 mg/dL 40-60 [facility] Comment on above: > or =60 mg/dl - LOW CARDIOVASCULAR RISK<40 mg/dl - HIGH CARDIOVASCULAR RISK CO2 [Moles/Vol] 28.9 mmol/L 21.0-32.0 [facility] Cobalamin (Vitamin B12) [Mass/Vol] 1666 pg/mL Abnormal 232-1245 [facility] Comment on above: Performed at: [facility] [address] [address] [id number] Director: Norm Roman PhD, Phone: [phone] Creatinine [Mass/Vol] 1.04 mg/dL High 0.55-1.02 [facility] GFR/1.73 sq M.predicted MDRD (S/P/Bld) [Vol rate/Area] mL/min/{1.73_m2} >=60 mL/min/1.73 m 2 [facility] Glucose [Mass/Vol] 91 mg/dL 74-106 [facility] Magnesium [Mass/Vol] 2.0 mg/dL 1.8-2.4 [facility] Potassium [Moles/Vol] 4.1 mmol/L 3.5-5.1 [facility] Protein [Mass/Vol] 6.6 g/dL 6.4-8.2 [facility] Sodium [Moles/Vol] 143 mmol/L 136-145 [facility] Triglyceride [Mass/Vol] 85 mg/dL <=150 [facility] TSH Qn 1.294 m[IU]/L 0.358-3.740 [facility] Urea nitrogen [Mass/Vol] 14.0 mg/dL 7.0-18.0 [facility] Urea nitrogen/Creatinine [Mass ratio] 13.5 mg/mg [facility] Laboratory - Hematology and Cell countson 09-29-2024 Immature granulocytes/100 WBC (Bld) 0.2 % 0.0-0.5 [facility] Leukocytes [#/volume] correc maria l for nucleated erythrocytes in Blood by Automated counon 09-29-2024 WBC corrected for nucl RBC Auto (Bld) [#/Vol] Leukocytes [#/volume] corrected for nucleated erythrocytes in Blood by Automated coun 4.0-11.0 [facility] Lymphocytes Auto (Bld) [#/Vo l]on 09-29-2024 Lymphocytes (Bld) [#/Vol] Lymphocytes [#/volume] in Blood by Automated count 1.2-3.8 [facility] Lymphocytes/100 WBC Auto (Bl d)on 09-29-2024 Lymphocytes/100 WBC (Bld) Lymphocytes/100 leukocytes in Blood by Automated count 20.5-60.0 [facility] MCH Auto (RBC) [Entitic mass ]on 09-29-2024 MCH (RBC) [Entitic mass] MCH [Entitic mass] by Automated count 26.7-34.0 [facility] MCHC Auto (RBC) [Mass/Vol]on 09-29-2024 MCHC (RBC) [Mass/Vol] MCHC [Mass/volume] by Automated count 29.9-35.2 [facility] MCV Auto (RBC) [Entitic vol] on 09-29-2024 MCV (RBC) [Entitic vol] MCV [Entitic volume] by Automated count 81.0-99.0 [facility] Monocytes Auto (Bld) [#/Vol] on 09-29-2024 Monocytes (Bld) [#/Vol] Automated blood monocyte count 0.3-0.8 [facility] Monocytes/100 WBC Auto (Bld) on 09-29-2024 Monocytes/100 WBC (Bld) Automated monocyte % 1.7-12.0 [facility] Neutrophils Auto (Bld) [#/Vo l]on 09-29-2024 Neutrophils (Bld) [#/Vol] Neutrophils [#/volume] in Blood by Automated count 1.4-6.5 [facility] Neutrophils/100 WBC Auto (Bl d)on 09-29-2024 Neutrophils/100 WBC (Bld) Automated neutrophil % 43.0-75.0 [facility] No Panel Informationon 09-29 Eosinophils # (Auto) 0.2 10 3/uL 0.0-0.[address] [facility] Immature Granulocyte # (Auto) 0.01 10 3/uL 0.00-0.03 [facility] Platelet mean volume Auto (B ld) [Entitic vol]on 09-29-2024 Platelet mean volume (Bld) [Entitic vol] Platelet mean volume [Entitic volume] in Blood by Automated count 9.5-13.5 [facility] Platelets Auto (Bld) [#/Vol] on 09-29-2024 Platelets (Bld) [#/Vol] Platelets [#/volume] in Blood by Automated count 150-450 [facility] RBC Auto (Bld) [#/Vol]on RBC (Bld) [#/Vol] Erythrocytes [#/volu me] in Blood by Automated count Low 4.20-5.40 [facility] Serum or plasma albumin/glob ulin mass ratioon 09-29-2024 Albumin/Globulin [Mass ratio] Serum or plasma albumin/globulin mass ratio [facility] Serum or plasma anion gap de terminationon 09-29-2024 Anion gap [Moles/Vol] Serum or plasma anion gap determination [facility] Serum or plasma total choles terol/high density lipoprotein (HDL) cholesterol mass carito 09-29-2024 Cholesterol.total/Ch olesterol in HDL [Mass ratio] Serum or plasma total cholesterol/high density lipoprotein (HDL) cholesterol mass rat [facility] Comment on above: 3.3 - 4.4 LOW RISK4. 4 - 7.1 AVERAGE RISK7.1 - 11.0 MODERATE RISK>11.0 HIGH RISK No Panel InformationOrdered By: Wendy Chávez on 2024 Quick Strep (POC) [facility] No Panel InformationOrdered By: Wendy Chávez on 09-14-2024 Quick Strep (POC) [facility] Laboratory - Chemistry and C hemistry - challengeon 08-08-2024 Bilirubin Ql (U) Negative NEGATIVE [facility] Glucose (U) [Mass/Vol] Negative NEGATIVE [facility] Ketones Ql (U) Negative NEGATIVE [facility] pH (U) 6.0 [pH] 5.0-9.0 [facility] Specific gravity (U) [Rel density] 1.020 1.005-1.025 [facility] Urobilinogen Qn (U) 0.2 {Marco A'U}/dL 0.2-1.0 [facility] Laboratory - Specimen inform ationon 08-08-2024 Appearance (U) CLEAR CLEAR [facility] Color (U) LT. YELLOW YELLOW [facility] Laboratory - Urinalysison Leukocyte esterase Test strip Ql (U) Negative NEGATIVE [facility] Nitrite Ql (U) Negative NEGATIVE [facility] Protein Ql (U) Negative NEG/TRACE [facility] No Panel Informationon 08-08 Urine Microscopic Review NO [facility] Urine Occult Blood Negative NEGATIVE [facility] Aerobic throat cultureOrdere d By: Teresita Ortega on 08-02-2024 Bacteria identified Aer cx Nom (Throat) Aerobic throat culture [facility] Throat Cultureon 08-02-2024 Throat culture Respiratory Results Moderate Normal Respiratory Yolanda 2 Days PERFORMED BY: [place] [address] PATHOLOGIST SALES CLOSER ANTWON BETANCUR M.D. Normal [facility] Comment on above: Performed By: #### C NE #### [facility] [address] Reminderson 07-19-2024 Reminders Reminders From: Bessie John To: [facility] - Reminders/Recalls; Sent: 07/19/2024 15:10:14 EDT Show up: 06/12/2027 15:09:00 EDT Subject: Ambulatory Reminder- colonoscopy 3-5 year recall Due Date/Time: 07/12/2027 15:09:00 EDT Reminder/Recall Colonoscopy- 07/12/2024 Dr Asencio 3-5 year recall Normal [facility] Result Letter Officeon 07-19 Result Letter Office Result Letter Offic e July 19, [address] [place] [address] : 1950 Below is a summary of [...] letter prior to your next due date. [facility] [phone] Normal [facility] Surgical Pathology Reporton 07-14-2024 Surgical Pathology Report [facility] [address] [place] [address]- Surgical Pathology Report Collected Date/Time: 07/12/2024 08:28 [...] is entirely submitted in one cassette. (DC) DC:[facility] Microscopic Description Microscopic examination performed unless gross only specified. Normal [facility] Comment on above: Performed By: #### [id number] #### [facility] Laboratory [address] [place] [address] Main OR Intraoperative Recor don 07-13-2024 Main OR Intraoperative Record Main OR Intraoperative Record IntraOp Document Type FT Summary Primary Physician: Sharad Asencio MD Finalized Date/Time: 07/13/24 12:40:21 Pt. Name: SYED MICHELLE /Sex: 1950 Female Med Rec #: [id number] Physician: Sharad Asencio MD Financial #: [id number] Pt. Type: O Room/Bed: / Admit/Disch: 07/12/24 06:53:39 - 07/12/24 23:59:59 Institution: Case Times FT Entry 1 Patient Times In Room 07/12/24 08:18:00 Out Room 07/12/24 08:41:00 Procedure Times Start 07/12/24 08:24:00 Stop 07/12/24 08:39:00 Anesthesia Times Start 07/12/24 08:18:00 Stop 07/12/24 08:41:00 Time at [facility] 07/12/24 08:28:00 Last Modified By: Verna GALVAN, Cheryl Stanton 07/12/24 08:41:18 General Comments: 07/13/24 Chart opened for charge review per Felipa Ojeda RN. CECILIA Case Attendance FT Entry 1 Entry 2 Entry 3 Case Attendee River CORBIN, Cristobal Gillespie RN, George Isaacs Role Performed Anesthesiologist Medicine Tech - Primary Scrub - Primary Cloud Administrator Time In 07/12/24 08:18:00 07/12/24 08:18:00 07/12/24 08:18:00 Time Out 07/12/24 08:41:00 07/12/24 08:41:00 07/12/24 08:41:00 Procedure COLONOSCOPY(.) COLONOSCOPY(.) COLONOSCOPY(.) Comments Dr. Durán supervising procedure. Last Modified By: Verna GALVAN, CherylCheryl Berg RN, RN, Kara N 07/12/24 08:41:19 07/12/24 08:41:19 07/12/24 08:41:19 Entry [...] Time Out Cristobal Holman CRNA, Given Participants Cheryl Gillespie RN, Sparks, Micala E, Elif MARCUS, Sharad Lynn Time [...] and tissue Entry 1 Skin Integrity Intact, [place], Warm, & Skin Abnormality No Dry Outcomes [...] Position Restin (more content not included)... Normal [facility] Discharge Instructionson Discharge Instructions Discharge Instructions SYED [...] after Discharge Follow Up with Elif MARCUS, SARITA Medel, MED When: Comments: Call for any problems. The [...] these instructions at home: Medicines ? Take knfc-[id number]-[id number] and prescription medicines only as told by [...] to keep (more content not included)... Normal [facility] Comment on above: Result Comment: Elec [...] Plan Diagnosis: History of colon polyps -colonoscopy Normal [facility] Main OR PACU II Recordon Main OR PACU II Record Main OR PACU II Record PACU Phase II Document Type FT Summary Primary Physician: Sharad Asencio MD Finalized Date/Time: 07/12/24 09:17:55 Pt. Name: VIVIANA SYED Topete/Sex: 1950 Female Med Rec #: [id number] Physician: Sharad Asencio MD Financial #: [id number] Pt. Type: O Room/Bed: / Admit/Disch: 07/12/24 [...] Signed By: Maine Marcos I 07/12/24 09:17 Normal [facility] Main OR Preoperative Recordo n 07-12-2024 Main OR Preoperative Record Main OR Preoperative Record Holding Area Document Type FT Summary Primary Physician: Sharad Asencio MD Finalized Date/Time: 07/12/24 07:28:56 Pt. Name: SYED MICHELLE/Sex: 1950 Female Med Rec #: [id number] Physician: Sharad Asencio MD Financial #: [id number] Pt. Type: O Room/Bed: / Admit/Disch: 07/12/24 [...] completed prep at 0330 and remained NPO since/JILLIANRN Finalized By: Cheryl Gillespie RN Document Signatures Signed By: Cheryl Gillespie RN 07/12/24 07:28 Normal [facility] Operative Reporton Operative Report Operative Report Patient: SYED MICHELLE Age: 73 years Sex: Female : 1950 Associated Diagnoses: None Author: Sharad Asencio MD Pre-Procedure Procedure Date 07/12/2024 08:45:00 . Procedure Type: Colonoscopy with removal of tumor(s), polyp(s), or other lesion(s) by cold snare technique. Procedure provider Performed by Sharad Asencio MD. Current history and physical Documented on chart. Colonoscope (947906649). Mastectomy (8083050413). Hysterectomy (659217816). Cholecystectomy (59246709).. Past Medical History Resolved Hypercholesterolemia (84984797): Resolved. Anxiety (39697052): Resolved. Hypertension (04318384): Resolved. Overactive bladder (1835681295): Resolved. Coronary artery disease (1939647223): Resolved. Hypokalemia (33991930): Resolved. Subdural hematoma (722916246): Resolved. Hyperlipidemia (58847297): Resolved. Breast cancer in remission (2719081796): Resolved.. Family History Primary malignant neoplasm of colon Sister Diabetes mellitus Brother Hypertension Father Brother Sister Heart disease Brother Stroke Father Mental illness Mother Cancer Brother Sister Colon cancer stage 1 Mother High cholesterol Brother . Procedure History Colonoscope (757529189). Mastectomy (8548477594). Hysterectomy (217692860). Cholecystectomy (19717187).. Colorectal neoplasm risk assessment High risk Previous [...] bedtime) for constipation, 100 tab(s), Refill(s) 0, [facility]/pharmacy #[id number], 173, cm, 06/30/24 10:17:00 EDT, [...] snare 4. Internal hemorrhoids Images Procedure images: Rec_hd_video_ [id number].jpg Rec_hd_video_ [id number].jpg Rec_hd_video_ [id number].jpg Rec_hd_video_ [id number].jpg Rec_hd_video_ [id number].jpg . Post-Procedure Complications: none. Estimated blood loss: Minimal. Specimens: sent to pathology. Devices/ implants: none left in place. Impression and Plan 3 colon polyps?removed as above Internal hemorrhoids Recommendations: Repeat colonoscopy:: In 3 to 5 years . Follow-up:: in clinic for 1-2 weeks when pathology is available. Diet:: Previous. Medication resumption:: Continue current medications, Avoid NSAIDs. Return (more content not included)... Normal [facility] Comment on above: Result Comment: Elec tronically Signed By: Elif MARCUS, Sharad Mas.br\Date and Time Signed: 07/12/24 08:46 EDT Other Comment: [place] Attachment - attachment storage system not supported [id number] Can be viewed in source system Missing Attachment - attachment storage system not supported [id number] Can be viewed in source system Missing Attachment - attachment storage system not supported [id number] Can be viewed in source system Missing Attachment - attachment storage system not supported [id number] Can be viewed in source system Missing Attachment - attachment storage system not supported [id number] Can be viewed in source system Ambulatory Visit Summaryon 0 06-30-2024 Ambulatory Visit Summary Ambulatory Visit Summary SYED MICHELLE :1950 Visit Date:10/08/2023 Ambulatory Visit Instructions Your Care Team Primary Care Physician - PAUL MARCUS, LON This Is Your Medications List Non-Formulary Medication [...] Follow-Up Appointments Thursday 8:00 AM EDT Where: [facility] Medications What How Much When [...] you for choosing us for your care. [facility] Gastroenterology Office/Clin ic Noteon 06-30-2024 Gastroenterology [...] bedtime) for constipation, 100 tab(s), Refill(s) 0, [facility]pharmacy #[id number], 173, cm, 06/30/24 10:17:00 EDT, Height/Length [...] influenza virus vaccine, inactivated 07/12/2015 Recorded Normal [facility] Comment on above: Result Comment: Elec tronically Signed By: Elif MARCUS, Sharad Lynn\.br\Date and Time Signed: 06/30/24 10:38 EDT Aerobic throat cultureOrdere d By: Teresita Ortega on 06-28-2024 Bacteria identified Aer cx Nom (Throat) 2 Days [facility] No Panel InformationOrdered By: Teresita Ortega on 06-28-2024 Quick Strep (POC) [facility] Throat Cultureon 06-28-2024 Throat culture Heavy Normal Respira tory Yolanda 2 Days PERFORMED BY: [place] [address] PATHOLOGIST SALES CLOSER ANTWON BETANCUR M.D. Normal [facility] Comment on above: Performed By: #### C UT #### [facility] [address] [place] [address] No Panel InformationOrdered By: Wendy Chávez on 06-08-2024 Quick Strep (POC) [facility] Aerobic throat cultureOrdere d By: Teresita Ortega on 05-21-2024 Bacteria identified Aer cx Nom (Throat) 2 Days [facility] No Panel InformationOrdered By: Teresita Ortega on 05-21-2024 Quick Strep (POC) [facility] Throat Cultureon 05-21-2024 Throat culture Heavy Normal Respira tory Yolanda 2 Days PERFORMED BY: [place] [address] PATHOLOGIST SALES CLOSER ANTWON BETANCUR M.D. Normal [facility] Comment on above: Performed By: #### C UT #### [address] No Panel InformationOrdered By: Mallorie Guardado on 04-04-2024 Quick Strep (POC) [facility] Erythrocyte distribution wid th Auto (RBC) [Ratio]on 03-01-2024 Erythrocyte distribution width (RBC) [Ratio] 13.2 % 11.0-15.0 [facility] Estimated glomerular filtrat ion rate (GFR) non- Americanon 03-01-2024 GFR/1.73 sq M.predicted among non-blacks MDRD (S/P/Bld) [Vol rate/Area] 49 mL/min/{1.73_m2} Low >=60 [facility] Globulin Calc (S) [Mass/Vol] on 03-01-2024 Globulin (S) [Mass/Vol] 3.1 g/dL [facility] Hematocrit Auto (Bld) [Volum e fraction]on 03-01-2024 Hematocrit (Bld) [Volume fraction] 38.4 % 36.0-48.0 [facility] Hemoglobin [Mass/volume] in Bloodon 03-01-2024 Hemoglobin (Bld) [Mass/Vol] 12.3 g/dL 12.0-16.0 [facility] Laboratory - Chemistry and C hemistry - challengeon 03-01-2024 Albumin [Mass/Vol] 3.8 g/dL 3.4-5.0 [facility] ALP [Catalytic activity/Vol] 68 U/L 46-116 [facility] ALT [Catalytic activity/Vol] 37 U/L 14-59 [facility] AST [Catalytic activity/Vol] 21 U/L 15-37 [facility] Bilirubin [Mass/Vol] 0.6 mg/dL 0.2-1.0 [facility] Calcium [Mass/Vol] 9.2 mg/dL 8.5-10.1 [facility] Chloride [Moles/Vol] 105 mmol/L 98-107 [facility] CO2 [Moles/Vol] 27.0 mmol/L 21.0-32.0 [facility] Creatinine [Mass/Vol] 1.09 mg/dL High 0.55-1.02 [facility] GFR/1.73 sq M.predicted MDRD (S/P/Bld) [Vol rate/Area] 60 mL/min/{1.73_m2} >=60 [facility] Glucose [Mass/Vol] 89 mg/dL 74-106 [facility] Magnesium [Mass/Vol] 2.3 mg/dL 1.8-2.4 [facility] Potassium [Moles/Vol] 4.0 mmol/L 3.5-5.1 [facility] Protein [Mass/Vol] 6.9 g/dL 6.4-8.2 [facility] Sodium [Moles/Vol] 141 mmol/L 136-145 [facility] Urea nitrogen [Mass/Vol] 18.0 mg/dL 7.0-18.0 [facility] Urea nitrogen/Creatinine [Mass ratio] 16.5 mg/mg [facility] Laboratory - Urinalysison Protein (U) [Mass/Vol] 17.4 mg/dL High <=11.9 [facility] Leukocytes [#/volume] correc maria l for nucleated erythrocytes in Blood by Automated counon 03-01-2024 WBC corrected for nucl RBC Auto (Bld) [#/Vol] 9.1 10 3/uL 4.0-11.0 [facility] MCH Auto (RBC) [Entitic mass ]on 03-01-2024 MCH (RBC) [Entitic mass] 29.5 pg 26.7-34.0 [facility] MCHC Auto (RBC) [Mass/Vol]on 03-01-2024 MCHC (RBC) [Mass/Vol] 32.0 g/dL 29.9-35.2 [facility] MCV Auto (RBC) [Entitic vol] on 03-01-2024 MCV (RBC) [Entitic vol] 92.1 fL 81.0-99.0 [facility] No Panel Informationon 03-01 25-Hydroxy Vitamin D Total 30.0 ng/mL [facility] Comment on above: <20 ng/mL Vit D defi cient20-<30 ng/mL Vit D mhxemmimbgop25-806 ng/mL Vit D sufficient>100 ng/mL Potential Toxicity Phosphorus Level 3.5 mg/dL 2.6-4.7 [facility] Urine Random Creatinine 100.00 mg/dL 20.00-300.0 0 [facility] Platelet mean volume Auto (B ld) [Entitic vol]on 03-01-2024 Platelet mean volume (Bld) [Entitic vol] 10.4 fL 9.5-13.5 [facility] Platelets Auto (Bld) [#/Vol] on 03-01-2024 Platelets (Bld) [#/Vol] 209 10 3/uL 150-450 [facility] RBC Auto (Bld) [#/Vol]on RBC (Bld) [#/Vol] 4.17 10 6/uL Low 4.20-5.40 [facility] Serum or plasma albumin/glob ulin mass ratioon 03-01-2024 Albumin/Globulin [Mass ratio] 1.2 {ratio} [facility] Serum or plasma anion gap de terminationon 03-01-2024 Anion gap [Moles/Vol] 13.0 mmol/L [facility] Urine protein/creatinine rat ioon 03-01-2024 Protein/Creatinine (U) [Ratio] 0.17 [facility] No Panel InformationOrdered By: Teresita Ortega on 02-04-2024 Quick Strep (POC) [facility] MR TRANSFER OF OUTSIDE FILMS on 01-27-2024 MR TRANSFER OF OUTSIDE FILMS Outside images for comparison or treatment purposes, not interpreted by Radiologists. Normal [facility] Study Interpretation of outs moshe studyon 01-27-2024 Outside images for comparison or treatment purposes, not interpreted by Radiologists. IMAGING No Panel InformationOrdered By: Lidia Alarcon on 01-22-2024 Quick Strep (POC) [facility] Patient Letter FTMCon 2023 Patient Letter FT (Inserted Image. Nery ble to display) December 30, 2023 SYED [address] [place] [address] : 1950 Dear Syed, This is a reminder that you are due for an appointment with [facility]. Please contact our office at [phone] to schedule an appointment at your earliest convenience. Thank you, [facility] Reminderson 12-30-2023 Reminders - From: Jacquelyn Schroeder MA To: [facility] - Reminders/Recalls; Sent: 10/08/2023 14:43:01 EST Show up: 12/28/2023 14:42:00 EDT Subject: colon recall Due Date/Time: 01/28/2024 14:42:00 EDT Reminder Message [address] Marcos 01/27/19 first recall letter [facility] Office Visiton 11-09-2023 Follow-up visit [id number] Syed Michelle 1950 F Date Provider Department Center 11/09/2023 [facility] SELENA Hare Family History Problem Relation Age of Onset Other Mother Aneurysm Father Hypertension Father Hypertension Brother Family Status - Relation Status Age at Mother Father Brother Level of Service:[address] [place] OFFICE/OUTPATIENT ESTABLISHED LOW MDM 20 MIN Normal [facility] Urinalysis - DIPSTICKon 08-14 Appearance (U) Clear [employer] Other Bilirubin Ql (U) Negative [employer] Other Color (U) Yellow [employer] Other Glucose Ql (U) Negative [employer] Other Hemoglobin Ql (U) Negative [employer] Other Ketones Ql (U) Negative [facility] Other Leukocyte esterase Test strip Ql (U) Negative [employer] Other Nitrite Ql (U) Negative [employer] Other pH (U) 5.0 [pH] [employer] Other Protein Ql (U) Trace [employer] Other Specific gravity (U) [Rel density] 1.010 [employer] Other Urobilinogen (U) [Mass/Vol] 0.2 mg/dL [employer] Other Urinalysis - DIPSTICK [employer] Other Urine Cultureon 09-10-2023 Bacteria identified Cx Nom (U) <9,000 colonies/ml mixed bacterial skin contaminants 2 Days PERFORMED BY: [place] [address] PATHOLOGIST SALES CLOSER ANTWON BETANCUR M.D. Normal [facility] Comment on above: Performed By: #### C UU #### [address] Form[place] 09-09-2023 Forms [id number] Normal [facility] Physician Referralon 023 Physician Referral [id number] Normal [facility] Screenson 09-09-2023 Screens [id number] Normal [facility] Ambulatory Visit Summaryon 1 11-08-2022 Ambulatory Visit Summary SYED MICHELLE :1950 Visit Date:09/08/2023 Ambulatory Visit Instructions Your Diagnosis Hydronephrosis Renal cyst Kidney stones Tests Performed Urnls Dip Stick Auto w/o Microscopy POC 11888 Your Care Team Attending Physician - Frank [...] Urnls Dip Stick Auto w/o Microscopy POC 71498 (09/08/2023) Bilirubin Urine Dipstick - Negative Blood Urine Dipstick - Trace-intact Glucose Urine Dipstick - Negative Ketones Urine Dipstick - Negative Leukocytes Urine Dipstick - 1+ Small Nitrite Urine Dipstick - Negative Protein Urine Dipstick - Negative Specific Point Lay Urine Dipstick - 1.020 Urine Appearance Urine [...] ? 8 oz (237 mL) of milk, gbsxvdm-gsuatrywjgsi-msry y milk, and calcium-fortifiedfruit juice. Calcium-fortified means [...] ? L (more content not included)... Normal [facility] Patient Educationon 09-08-20 Patient Education Nephrology [...] ? 8 oz (237 mL) of milk, jvqsgfs-aktuvjkuwbdx-dyzh y milk, and calcium-fortifiedfruit juice. Calcium-fortified means [...] Spinach (cooked), rhubarb, beets, sweet potatoes, and Cuban chard. ? Peanuts. ? Potato chips, slovenian fries, and baked potatoes with skin on. ? Nuts and nut products. ? Chocolate. ? If you regularly take a diuretic medicine, make sure to eat at least 1 or 2 servings of fruits or vegetables that are high in potassium each day. These include: ? Avocado. ? Banana. ? Platte, prune, carrot, or tomato juice. ? Baked [...] fish oil, or vitamin B6. ? Take bumg-pno-jkjwvka and prescription medicines only as told by your health care provider. These include supplements. What foods should I limit? Limit your in (more content not included)... 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 FAITH [...] patient. Follow-up With When Contact Information Frank MARUCS, Flores Leo, URL, URO Additional Instructions: PRN Patient Education Dietary Guidelines to Help Prevent Kidney Stones I, Magaly Li, personally scribed for Dr. Marie on 09/08/2023 11:18:39. . Portions of this record may have been created with voice recognition artificial intelligence software, specifically [employer], [employer]hBowl and or Dragon Ambient Experience. Substitutions may have occurred due to the inherent limitations of voice recognition and artificial intelligence software. Documentation recorded by the scribe, Magaly Li, accurately reflects the services(s) I (more content not included)... [facility] Comment on above: Result Comment: Elec tronically Signed By: Frank MARCUS, Flores Leo\.br\Date and Time Signed: 09/08/23 11:54 EST\.br\Electronically Co-Signed By: Magaly Li\.br\Date and Time Co-Signed: 09/08/23 11:19 EST RAD - CT Reporton 09-01-2023 RAD - CT Report [id number] [facility] Physician Orderon 08-17-2023 Physician Order [id number] [facility] Quick Strepon 07-20-2023 S. pyogenes Org specific cx Ql (Throat) Negative [employer] Other Zighra Strep [facility] [employer] Other Quick Strepon 07-03-2023 S. pyogenes Org specific cx Ql (Throat) Negative [facility] [employer] Other [employer] [place] do[employer]o Other Quick Strepon 06-23-2023 S. pyogenes Org specific cx Ql (Throat) Positive [place] [employer] Other Zighra Strep [facility] [employer] Other SARS-CoV-2 (COVID-19) RNA NA A+probe Ql (Resp)on 06-23-2023 SARS-CoV-2 (COVID-19) RNA BEKAH+probe Ql (Unsp spec) Negative [employer] Other Quick Strepon 06-12-2023 S. pyogenes Org specific cx Ql (Throat) Positive [employer] Other Zighra Strep [employer] Other Quick Strepon 04-29-2023 S. pyogenes Org specific cx Ql (Throat) Positive [employer] Other Quick Strep [employer] Other Quick Strepon 03-17-2023 S. pyogenes Org specific cx Ql (Throat) Positive [employer] Other Quick Strep [employer] Other CBC AUTO DIFFon 01-26-2023 BASO # 0.0 103/ul Normal 0.0-0.1 [facility] Comment on above: Performed By: #### C MP, TSH #### [facility] [address] [place] [address] Dr. Shayy Hernandez Basophils/100 WBC (Bld) 0.6 % Normal 0.2-2.0 [facility] Comment on above: Performed By: #### C MP, TSH #### [facility] [address] [place] [address] Dr. Shayy Hernandez EO # 0.2 103/ul Normal 0.0-0.7 [facility] Comment on above: Performed By: #### C MP, TSH #### [facility] [address] [place] [address] Dr. Shayy Hernandez Eosinophils/100 WBC (Bld) 3.2 % Normal 0.9-7.0 [facility] Comment on above: Performed By: #### C MP, TSH #### [facility] [address] [place] [address] Dr. Shayy Hernandez Erythrocyte distribution width (RBC) [Ratio] 12.8 % Normal 11.0-15.0 [facility] Comment on above: Performed By: #### C MP, TSH #### [facility] [address] [place] [address] Dr. Shayy Hernandez Hematocrit (Bld) [Volume fraction] 38.6 % Normal 36.0-48.0 [facility] Comment on above: Performed By: #### C MP, TSH #### [facility] [address] [place] [address] Dr. Shayy Hernandez Hemoglobin (Bld) [Mass/Vol] 12.7 g/dL Normal 12.0-16.0 [facility] Comment on above: Performed By: #### C MP, TSH #### [facility] [address] [place] [address] Dr. Shayy Hernandez IG # 0.01 10e3/ul Normal 0.00-0.03 [facility] Comment on above: Performed By: #### C MP, TSH #### [facility] [address] [place] [address] Dr. Shayy Hernandez IG % 0.2 % Normal 0.0-0.5 [facility] Comment on above: Performed By: #### C MP, TSH #### [facility] [address] [place] [address] Dr. Shayy Hernandez LYMPH # 1.7 103/ul Normal 1.2-3.8 [facility] Comment on above: Performed By: #### C MP, TSH #### [facility] [address] [place] [address] Dr. Shayy Hernandez Lymphocytes/100 WBC (Bld) 27.2 % Normal 20.5-60.0 [facility] Comment on above: Performed By: #### C MP, TSH #### [facility] [address] [place] [address] Dr. Shayy Hernandez MANUAL DIFF REQ NO Normal [facility] Comment on above: Performed By: #### C MP, TSH #### [facility] [address] [place] [address] Dr. Shayy Hernandez MCH (RBC) [Entitic mass] 29.8 pg Normal 26.7-34.0 [facility] Comment on above: Performed By: #### C MP, TSH #### [facility] [address] [place] [address] Dr. Shayy Hernandez MCHC (RBC) [Mass/Vol] 32.9 g/dL Normal 29.9-35.2 [facility] Comment on above: Performed By: #### C MP, TSH #### [facility] [address] [place] [address] Dr. Shayy Hernandez MCV (RBC) [Entitic vol] 90.6 fL Normal 81.0-99.0 [facility] Comment on above: Performed By: #### C MP, TSH #### [facility] [address] [place] [address] Dr. Shayy Hernandez MONO # 0.5 103/ul Normal 0.3-0.8 [facility] Comment on above: Performed By: #### C MP, TSH #### [facility] [address] [place] [address] Dr. Shayy Hernandez Monocytes/100 WBC (Bld) 7.9 % Normal 1.7-12.0 [facility] Comment on above: Performed By: #### C MP, TSH #### [facility] [address] [place] [address] Dr. Shayy Hernandez NEUT # 3.8 103/ul Normal 1.4-6.5 [facility] Comment on above: Performed By: #### C MP, TSH #### [facility] [address] [place] [address] Dr. Shayy Henrandez Neutrophils/100 WBC (Bld) 60.9 % Normal 43.0-75.0 [facility] Comment on above: Performed By: #### C MP, TSH #### [facility] [address] [place] [address] Dr. Shayy Hernandez Platelet mean volume (Bld) [Entitic vol] 9.6 fL Normal 9.5-13.5 [facility] Comment on above: Performed By: #### C MP, TSH #### [facility] [address] [place] [address] Dr. Shayy Hernandez PLT 195 103/ul Normal 150-450 [facility] Comment on above: Performed By: #### C MP, TSH #### [facility] [address] [place] [address] Dr. Shayy Hernandez RBC 4.26 106/ul Normal 4.20-5.40 [facility] Comment on above: Performed By: #### C MP, TSH #### [facility] [address] [place] [address] Dr. Shayy Hernandez WBC 6.2 103/ul Normal 4.0-11.0 [facility] Comment on above: Performed By: #### C MP, TSH #### [facility] [address] [place] [address] Dr. Shayy Hernandez PROF 14(COMP METB)on 023 Albumin [Mass/Vol] 3.8 g/dL Normal 3.4-5.0 [facility] Comment on above: Performed By: #### F T4 #### [facility] [address] [place] [address] Dr. Shayy Hernandez Albumin/Globulin [Mass ratio] 1.1 {ratio} Normal [facility] Comment on above: Performed By: #### F T4 #### [facility] [address] [place] [address] Dr. Shayy Hernandez ALP [Catalytic activity/Vol] 77 U/L Normal 46-116 [facility] Comment on above: Performed By: #### F T4 #### [facility] [address] [place] [address] Dr. Shayy Hernandez ALT [Catalytic activity/Vol] 33 U/L Normal 14-59 [facility] Comment on above: Performed By: #### F T4 #### [facility] [address] [place] [address] Dr. Shayy Hernandez Anion gap [Moles/Vol] 12.3 mmol/L Normal [facility] Comment on above: Performed By: #### F T4 #### [facility] [address] [place] [address] Dr. Shayy Hernandez AST [Catalytic activity/Vol] 17 U/L Normal 15-37 [facility] Comment on above: Performed By: #### F T4 #### [facility] [address] [place] [address] Dr. Shayy Hernandez Bilirubin [Mass/Vol] 0.6 mg/dL Normal 0.2-1.0 [facility] Comment on above: Performed By: #### F T4 #### [facility] [address] [place] [address] Dr. Shayy Hernandez Calcium [Mass/Vol] 9.1 mg/dL Normal 8.5-10.1 [facility] Comment on above: Performed By: #### F T4 #### [facility] [address] [place] [address] Dr. Shayy Hernandez Chloride [Moles/Vol] 107 mmol/L Normal 98-107 [facility] Comment on above: Performed By: #### F T4 #### [facility] [address] [address] [address] Shayy Hernandez CO2 [Moles/Vol] 26.9 mmol/L Normal 21.0-32.0 [facility] Comment on above: Performed By: #### F T4 #### [facility] [address] [place] [address] Dr. Shayy Hernandez Creatinine [Mass/Vol] 0.98 mg/dL Normal 0.55-1.02 [facility] Comment on above: Performed By: #### F T4 #### [facility] [address] [place] [address] Dr. Shayy Hernandez EGFR-AF TURKMEN >60 Normal >=60 [facility] Comment on above: Performed By: #### F T4 #### [facility] [address] [place] [address] Dr. Shayy Hernandez EGFR-NON AF TURKMEN 56 mL/min/1.73m2 Critically low >=60 [facility] Comment on above: Performed By: #### F T4 #### [facility] [address] [place] [address] Dr. Shayy Hernandez Globulin (S) [Mass/Vol] 3.6 g/dL Normal [facility] Comment on above: Performed By: #### F T4 #### [facility] [address] [place] [address] Dr. Shayy Hernandez Glucose [Mass/Vol] 77 mg/dL Normal 74-106 [facility] Comment on above: Performed By: #### F T4 #### [facility] [address] [place] [address] Dr. Shayy Hernandez Potassium [Moles/Vol] 4.2 mmol/L Normal 3.5-5.1 [facility] Comment on above: Performed By: #### F T4 #### [facility] [address] [address] [address] Shayy Hernandez Protein [Mass/Vol] 7.4 g/dL Normal 6.4-8.2 [facility] Comment on above: Performed By: #### F T4 #### [facility] [address] [place] [address] Dr. Shayy Hernandez Sodium [Moles/Vol] 142 mmol/L Normal 136-145 [facility] Comment on above: Performed By: #### F T4 #### [facility] [address] [place] [address] Dr. Shayy Hernandez Urea nitrogen [Mass/Vol] 18.0 mg/dL Normal 7.0-18.0 [facility] Comment on above: Performed By: #### F T4 #### [facility] [address] [place] [address] Dr. Shayy Hernandez Urea nitrogen/Creatinine [Mass ratio] 18.4 mg/mg Normal [facility] Comment on above: Performed By: #### F T4 #### [facility] [address] [place] [address] Dr. Shayy Hernandez UA RANDOMon 01-26-2023 Bilirubin Ql (U) Negative Normal NEGATIVE [facility] Comment on above: Performed By: #### U A #### [facility] [address] [place] [address] Dr. Shayy Hernandez Clarity (U) CLEAR Normal CLEAR [facility] Comment on above: Performed By: #### U A #### [facility] [address] [place] [address] Dr. Shayy Hernandez Color (U) LT. YELLOW Normal YELLOW [facility] Comment on above: Performed By: #### U A #### [facility] [address] [place] [address] Dr. Shayy Hernandez Glucose Ql (U) Negative Normal NEGATIVE [facility] Comment on above: Performed By: #### U A #### [facility] [address] [place] [address] Dr. Shayy Hernandez Hemoglobin Ql (U) Negative Normal NEGATIVE [facility] Comment on above: Performed By: #### U A #### [facility] [address] [place] [address] Dr. Shayy Hernandez Ketones Ql (U) Negative Normal NEGATIVE [facility] Comment on above: Performed By: #### U A #### [facility] [address] [place] [address] Dr. Shayy Hernandez LEUKOCYTES Negative Normal NEGATIVE [facility] Comment on above: Performed By: #### U A #### [facility] [address] [place] [address] Dr. Shayy Hernandez Nitrite Ql (U) Negative Normal NEGATIVE [facility] Comment on above: Performed By: #### U A #### [facility] [address] [place] [address] Dr. Shayy Hernanedz pH (U) 6.5 [pH] Normal 5-9 [facility] Comment on above: Performed By: #### U A #### [facility] [address] [place] [address] Dr. Shayy Hernandez SPEC GRAVITY 1.010 Normal 1.005-<=1.0 25 [facility] Comment on above: Performed By: #### U A #### [facility] [address] [place] [address] Dr. Shayy Hernandez UA PROTEIN Negative Normal NEGATIVE/ TRACE [facility] Comment on above: Performed By: #### U A #### [facility] [address] [place] [address] Dr. Shayy Hernandez Urobilinogen Qn (U) 0.2 {Marco A'U}/dL Normal 0.2 - 1. 0 [facility] Comment on above: Performed By: #### U A #### [facility] [address] [place] [address] Dr. Shayy Hernandez URIC ACID SERUMon 01-26-2023 Urate [Mass/Vol] 4.4 mg/dL Normal 2.6-6.0 [facility] Comment on above: Performed By: #### F T4 #### [facility] [address] [place] [address] Dr. Shayy Hernandez URINE T PROTEIN CREAT RATIOo n 01-26-2023 Protein (U) [Mass/Vol] 15.2 mg/dL Critically high <=12.0 [facility] Comment on above: Performed By: #### C MP, TSH #### [facility] [address] [address] [address] Shayy Hernandez UR PROT CREAT RAT 0.[address] [facility] Comment on above: Performed By: #### C MP, TSH #### [facility] [address] [address] [address] Shayy Hernandez URINE CREAT 113.89 mg/dL Normal 20.00-300.0 0 [facility] Comment on above: Performed By: #### C SAHRA, TSH #### [facility] [address] [place] [address] Dr. Shayy Hernandez VITAMIN D 25 OHon 01-26-2023 VIT D 25-OH 19.0 ng/mL Normal [facility] Comment on above: Performed By: #### C SAHRA, TSH #### [facility] [address] [address] [address] Shayy Hernandez VIT D RANGES SEE BELOW Normal [facility] Comment on above: Result Comment: <20 ng/mL Vit D deficient 20 - <30 ng/mL Vit D insufficient 30 - 100 ng/mL Vit D sufficient >100 ng/mL Potential Toxicity Performed By: #### C SAHRA, TSH #### [facility] [address] [place] [address] Dr. Shayy Hernandez MG [facility]M DIAGNOSTIC 3D [place] CA Don 12-23-2022 MG [facility]AMM DIAGNOSTIC 3D [place] CAD Patient: SYED MICHELLE Exam Date: 12/23/2022 : 1950 Gender:F Ordering : DR LON MILLER M.D. Admission #: [id number] Family : Order #: [id number] CLICK HERE TO VIEW EXAM RADIOLOGY REPORT [...] Left mastectomy Family Cancers None LOCATION: [facility] BREAST COMPOSITION: Extremely dense, which lowers [...] M.D. on 12/23/2022 at 15:43 Normal [facility] US BREAST LEFT LIMITEDon US BREAST LEFT LIMITED Patient: SYED MICHELLE Exam Date: 12/23/2022 : 1950 Gender:F Ordering : DR LON MILLER M.D. Admission #: [id number] Family : Order #: [id number] CLICK HERE TO VIEW EXAM RADIOLOGY REPORT [...] Left mastectomy Family Cancers None LOCATION: [facility] BREAST COMPOSITION: Extremely dense, which lowers [...] M.D. on 12/23/2022 at 15:43 Normal [facility] CBC AUTO DIFFon 12-01-2022 BASO # 0.0 103/ul Normal 0.0-0.1 [facility] Comment on above: Performed By: #### C BC #### [facility] [address] [place] [address] Dr. Shayy Hernandez Basophils/100 WBC (Bld) 0.4 % Normal 0.2-2.0 [facility] Comment on above: Performed By: #### C BC #### [facility] [address] [place] [address] Dr. Shayy Hernandez EO # 0.2 103/ul Normal 0.0-0.7 [facility] Comment on above: Performed By: #### C BC #### [facility] [address] [place] [address] Dr. Shayy Hernandez Eosinophils/100 WBC (Bld) 3.5 % Normal 0.9-7.0 [facility] Comment on above: Performed By: #### C BC #### [facility] [address] [place] [address] Dr. Shayy Hernandez Erythrocyte distribution width (RBC) [Ratio] 13.4 % Normal 11.0-15.0 [facility] Comment on above: Performed By: #### C BC #### [facility] [address] [place] [address] Dr. Shayy Hernandez Hematocrit (Bld) [Volume fraction] 37.0 % Normal 36.0-48.0 [facility] Comment on above: Performed By: #### C BC #### [facility] [address] [place] [address] Dr. Shayy Hernandez Hemoglobin (Bld) [Mass/Vol] 11.9 g/dL Critically low 12.0-16.0 [facility] Comment on above: Performed By: #### C BC #### [facility] [address] [place] [address] Dr. Shayy Hernandez IG # 0.01 10e3/ul Normal 0.00-0.03 [facility] Comment on above: Performed By: #### C BC #### [facility] [address] [place] [address] Dr. Shayy Hernandez IG % 0.2 % Normal 0.0-0.5 [facility] Comment on above: Performed By: #### C BC #### [facility] [address] [place] [address] Dr. Shayy Hernandez LYMPH # 1.5 103/ul Normal 1.2-3.8 [facility] Comment on above: Performed By: #### C BC #### [facility] [address] [place] [address] Dr. Shayy Hernandez Lymphocytes/100 WBC (Bld) 31.4 % Normal 20.5-60.0 [facility] Comment on above: Performed By: #### C BC #### [facility] [address] [place] [address] Dr. Shayy Hernandez MANUAL DIFF REQ NO Normal [facility] Comment on above: Performed By: #### C BC #### [facility] [address] [place] [address] Dr. Shayy Hernandez MCH (RBC) [Entitic mass] 28.9 pg Normal 26.7-34.0 [facility] Comment on above: Performed By: #### C BC #### [facility] [address] [place] [address] Dr. Shayy Hernandez MCHC (RBC) [Mass/Vol] 32.2 g/dL Normal 29.9-35.2 [facility] Comment on above: Performed By: #### C BC #### [facility] [address] [address] [address] Shayy Hernandez MCV (RBC) [Entitic vol] 89.8 fL Normal 81.0-99.0 [facility] Comment on above: Performed By: #### C BC #### [facility] [address] [address] [address] Shayy Hernandez MONO # 0.4 103/ul Normal 0.3-0.8 [facility] Comment on above: Performed By: #### C BC #### [facility] [address] [address] [address] Shayy Hernandez Monocytes/100 WBC (Bld) 9.0 % Normal 1.7-12.0 [facility] Comment on above: Performed By: #### C BC #### [facility] [address] [address] [address] Shayy Hernandez NEUT # 2.7 103/ul Normal 1.4-6.5 [facility] Comment on above: Performed By: #### C BC #### [facility] [address] [address] [address] Shayy Hernandez Neutrophils/100 WBC (Bld) 55.5 % Normal 43.0-75.0 [facility] Comment on above: Performed By: #### C BC #### [facility] [address] [address] [address] Shayy Hernandez Platelet mean volume (Bld) [Entitic vol] 10.1 fL Normal 9.5-13.5 [facility] Comment on above: Performed By: #### C BC #### [facility] [address] [address] [address] Shayy Hernandez PLT 186 103/ul Normal 150-450 [facility] Comment on above: Performed By: #### C BC #### [facility] [address] [address] [address] Shayy Hernandez RBC 4.12 106/ul Critically low 4.20-5.40 [facility] Comment on above: Performed By: #### C BC #### [facility] [address] [place] [address] Dr. Shayy Hernandez WBC 4.9 103/ul Normal 4.0-11.0 [facility] Comment on above: Performed By: #### C BC #### [facility] [address] [place] [address] Dr. Shayy Hernandez FREE T4on 12-01-2022 Free T4 [Mass/Vol] 1.00 ng/dL Normal 0.76-1.46 [facility] Comment on above: Performed By: #### F T4 #### [facility] [address] [place] [address] Dr. Shayy Hernandez PROF 14(COMP METB)on 023 Albumin [Mass/Vol] 3.9 g/dL Normal 3.4-5.0 [facility] Comment on above: Performed By: #### F T4 #### [facility] [address] [place] [address] Dr. Shayy Hernandez Albumin/Globulin [Mass ratio] 1.3 {ratio} Normal [facility] Comment on above: Performed By: #### F T4 #### [facility] [address] [place] [address] Dr. Shayy Hernandez ALP [Catalytic activity/Vol] 73 U/L Normal 46-116 [facility] Comment on above: Performed By: #### F T4 #### [facility] [address] [place] [address] Dr. Shayy Hernandez ALT [Catalytic activity/Vol] 45 U/L Normal 14-59 [facility] Comment on above: Performed By: #### F T4 #### [facility] [address] [place] [address] Dr. Shayy Hernandez Anion gap [Moles/Vol] 11.4 mmol/L Normal [facility] Comment on above: Performed By: #### F T4 #### [facility] [address] [place] [address] Dr. Shayy Hernandez AST [Catalytic activity/Vol] 29 U/L Normal 15-37 [facility] Comment on above: Performed By: #### F T4 #### [facility] [address] [address] [address] Shayy Hernandez Bilirubin [Mass/Vol] 0.5 mg/dL Normal 0.2-1.0 [facility] Comment on above: Performed By: #### F T4 #### [facility] [address] [address] [address] Shayy Hernandez Calcium [Mass/Vol] 9.0 mg/dL Normal 8.5-10.1 [facility] Comment on above: Performed By: #### F T4 #### [facility] [address] [address] [address] Shayy Hernandez Chloride [Moles/Vol] 106 mmol/L Normal 98-107 [facility] Comment on above: Performed By: #### F T4 #### [facility] [address] [place] [address] Dr. Shayy Hernandez CO2 [Moles/Vol] 26.5 mmol/L Normal 21.0-32.0 [facility] Comment on above: Performed By: #### F T4 #### [facility] [address] [place] [address] Dr. Shayy Hernandez Creatinine [Mass/Vol] 0.97 mg/dL Normal 0.55-1.02 [facility] Comment on above: Performed By: #### F T4 #### [facility] [address] [place] [address] Dr. Shayy Hernandez EGFR-AF TURKMEN >60 Normal >=60 [facility] Comment on above: Performed By: #### F T4 #### [facility] [address] [place] [address] Dr. Shayy Hernandez EGFR-NON AF TURKMEN 57 mL/min/1.73m2 Critically low >=60 [facility] Comment on above: Performed By: #### F T4 #### [facility] [address] [place] [address] Dr. Shayy Hernandez Globulin (S) [Mass/Vol] 3.1 g/dL Normal [facility] Comment on above: Performed By: #### F T4 #### [facility] [address] [address] [address] Shayy Hernandez Glucose [Mass/Vol] 75 mg/dL Normal 74-106 [facility] Comment on above: Performed By: #### F T4 #### [facility] [address] [address] [address] Shayy Hernandez Potassium [Moles/Vol] 3.9 mmol/L Normal 3.5-5.1 [facility] Comment on above: Performed By: #### F T4 #### [facility] [address] [address] [address] Shayy Hernandez Protein [Mass/Vol] 7.0 g/dL Normal 6.4-8.2 [facility] Comment on above: Performed By: #### F T4 #### [facility] [address] [address] [address] Shayy Hernandez Sodium [Moles/Vol] 140 mmol/L Normal 136-145 [facility] Comment on above: Performed By: #### F T4 #### [facility] [address] [address] [address] Shayy Hernandez Urea nitrogen [Mass/Vol] 20.0 mg/dL Critically high 7.0-18.0 [facility] Comment on above: Performed By: #### F T4 #### [facility] [address] [address] [address] Shayy Hernandez Urea nitrogen/Creatinine [Mass ratio] 20.6 mg/mg Normal [facility] Comment on above: Performed By: #### F T4 #### [facility] [address] [address] [address] Shayy Hernandez TSHon 12-01-2022 TSH 1.746 uIU/mL Normal 0.358-3.740 [facility] Comment on above: Performed By: #### F T4 #### [facility] [address] [address] [address] Shayy Hernandez PROF CHEM 8 (BAS METB)on Anion gap [Moles/Vol] 11.8 mmol/L Normal [facility] Comment on above: Performed By: #### F T4 #### [facility] [address] [address] [address] Shayy Hernandez Calcium [Mass/Vol] 8.9 mg/dL Normal 8.5-10.1 [facility] Comment on above: Performed By: #### F T4 #### [facility] [address] [address] [address] Shayy Hernandez Chloride [Moles/Vol] 105 mmol/L Normal 98-107 [facility] Comment on above: Performed By: #### F T4 #### [facility] [address] [address] [address] Shayy Hernandez CO2 [Moles/Vol] 27.6 mmol/L Normal 21.0-32.0 [facility] Comment on above: Performed By: #### F T4 #### [facility] [address] [place] [address] Dr. Shayy Hernandez Creatinine [Mass/Vol] 0.80 mg/dL Normal 0.55-1.02 [facility] Comment on above: Performed By: #### F T4 #### [facility] [address] [place] [address] Dr. Shayy Hernandez EGFR-AF TURKMEN >60 Normal >=60 [facility] Comment on above: Performed By: #### F T4 #### [facility] [address] [place] [address] Dr. Shayy Hernandez EGFR-NON AF TURKMEN >60 Normal >=60 [facility] Comment on above: Performed By: #### F T4 #### [facility] [address] [place] [address] Dr. Shayy Hernandez Glucose [Mass/Vol] 91 mg/dL Normal 74-106 [facility] Comment on above: Performed By: #### F T4 #### [facility] [address] [address] [address] Shayy Hernandez Potassium [Moles/Vol] 4.4 mmol/L Normal 3.5-5.1 [facility] Comment on above: Performed By: #### F T4 #### [facility] [address] [address] [address] Shayy Hernandez Sodium [Moles/Vol] 140 mmol/L Normal 136-145 [facility] Comment on above: Performed By: #### F T4 #### [facility] [address] [place] [address] Dr. Shayy Hernandez Urea nitrogen [Mass/Vol] 13.0 mg/dL Normal 7.0-18.0 [facility] Comment on above: Performed By: #### F T4 #### [facility] [address] [place] [address] Dr. Shayy Hernandez Urea nitrogen/Creatinine [Mass ratio] 16.2 mg/mg Normal [facility] Comment on above: Performed By: #### F T4 #### [facility] [address] [place] [address] Dr. Shayy Hernandez CBC AUTO DIFFon 10-20-2022 BASO # 0.0 103/ul Normal 0.0-0.1 [facility] Comment on above: Performed By: #### C BC #### [facility] [address] [place] [address] Dr. Shayy Hernandez Basophils/100 WBC (Bld) 0.4 % Normal 0.2-2.0 [facility] Comment on above: Performed By: #### C BC #### [facility] [address] [place] [address] Dr. Shayy Hernandez EO # 0.2 103/ul Normal 0.0-0.7 [facility] Comment on above: Performed By: #### C BC #### [facility] [address] [place] [address] Dr. Shayy Hernandez Eosinophils/100 WBC (Bld) 2.0 % Normal 0.9-7.0 [facility] Comment on above: Performed By: #### C BC #### [facility] [address] [place] [address] Dr. Shayy Hernandez Erythrocyte distribution width (RBC) [Ratio] 13.3 % Normal 11.0-15.0 [facility] Comment on above: Performed By: #### C BC #### [facility] [address] [place] [address] Dr. Shayy Hernandez Hematocrit (Bld) [Volume fraction] 35.8 % Critically low 36.0-48.0 [facility] Comment on above: Performed By: #### C BC #### [facility] [address] [place] [address] Dr. Shayy Hernandez Hemoglobin (Bld) [Mass/Vol] 12.4 g/dL Normal 12.0-16.0 [facility] Comment on above: Performed By: #### C BC #### [facility] [address] [place] [address] Dr. Shayy Hernandez IG # 0.02 10e3/ul Normal 0.00-0.03 [facility] Comment on above: Performed By: #### C BC #### [facility] [address] [place] [address] Dr. Shayy Hernandez IG % 0.3 % Normal 0.0-0.5 [facility] Comment on above: Performed By: #### C BC #### [facility] [address] [place] [address] Dr. Shayy Hernandez LYMPH # 1.2 103/ul Normal 1.2-3.8 [facility] Comment on above: Performed By: #### C BC #### [facility] [address] [place] [address] Dr. Shayy Hernandez Lymphocytes/100 WBC (Bld) 15.2 % Critically low 20.5-60.0 [facility] Comment on above: Performed By: #### C BC #### [facility] [address] [place] [address] Dr. Shayy Hernandez MANUAL DIFF REQ NO Normal [facility] Comment on above: Performed By: #### C BC #### [facility] [address] [place] [address] Dr. Shayy Hernandez MCH (RBC) [Entitic mass] 29.2 pg Normal 26.7-34.0 [facility] Comment on above: Performed By: #### C BC #### [facility] [address] [place] [address] Dr. Shayy Hernandez MCHC (RBC) [Mass/Vol] 34.6 g/dL Normal 29.9-35.2 [facility] Comment on above: Performed By: #### C BC #### [facility] [address] [place] [address] Dr. Shayy Hernandez MCV (RBC) [Entitic vol] 84.2 fL Normal 81.0-99.0 [facility] Comment on above: Performed By: #### C BC #### [facility] [address] [place] [address] Dr. Shayy Hernandez MONO # 0.5 103/ul Normal 0.3-0.8 [facility] Comment on above: Performed By: #### C BC #### [facility] [address] [place] [address] Dr. Shayy Hernandez Monocytes/100 WBC (Bld) 6.7 % Normal 1.7-12.0 [facility] Comment on above: Performed By: #### C BC #### [facility] [address] [place] [address] Dr. Shayy Hernandez NEUT # 5.9 103/ul Normal 1.4-6.5 [facility] Comment on above: Performed By: #### C BC #### [facility] [address] [place] [address] Dr. Shayy Hernandez Neutrophils/100 WBC (Bld) 75.4 % Critically high 43.0-75.0 [facility] Comment on above: Performed By: #### C BC #### [facility] [address] [place] [address] Dr. Shayy Hernandez Platelet mean volume (Bld) [Entitic vol] 9.9 fL Normal 9.5-13.5 [facility] Comment on above: Performed By: #### C BC #### [facility] [address] [place] [address] Dr. Shayy Hernandez PLT 165 103/ul Normal 150-450 [facility] Comment on above: Performed By: #### C BC #### [facility] [address] [place] [address] Dr. Shayy Hernandez RBC 4.25 106/ul Normal 4.20-5.40 [facility] Comment on above: Performed By: #### C BC #### [facility] [address] [place] [address] Dr. Shayy Hernandez WBC 7.9 103/ul Normal 4.0-11.0 [facility] Comment on above: Performed By: #### C BC #### [facility] [address] [place] [address] Dr. Shayy Hernandez FREE T4on 10-20-2022 Free T4 [Mass/Vol] 1.08 ng/dL Normal 0.76-1.46 [facility] Comment on above: Performed By: #### F T4 #### [facility] [address] [place] [address] Dr. Shayy Hernandez PROF 14(COMP METB)on 023 Albumin [Mass/Vol] 3.8 g/dL Normal 3.4-5.0 [facility] Comment on above: Performed By: #### C MP, TSH #### [facility] [address] [place] [address] Dr. Shayy Hernandez Albumin/Globulin [Mass ratio] 1.2 {ratio} Normal [facility] Comment on above: Performed By: #### C MP, TSH #### [facility] [address] [place] [address] Dr. Shayy Hernandez ALP [Catalytic activity/Vol] 69 U/L Normal 46-116 [facility] Comment on above: Performed By: #### C MP, TSH #### [facility] [address] [place] [address] Dr. Shayy Hernandez ALT [Catalytic activity/Vol] 32 U/L Normal 14-59 [facility] Comment on above: Performed By: #### C MP, TSH #### [facility] [address] [place] [address] Dr. Shayy Hernandez Anion gap [Moles/Vol] 13.9 mmol/L Normal [facility] Comment on above: Performed By: #### C MP, TSH #### [facility] [address] [place] [address] Dr. Shayy Hernandez AST [Catalytic activity/Vol] 27 U/L Normal 15-37 [facility] Comment on above: Performed By: #### C MP, TSH #### [facility] [address] [place] [address] Dr. Shayy Hernandez Bilirubin [Mass/Vol] 0.6 mg/dL Normal 0.2-1.0 [facility] Comment on above: Performed By: #### C MP, TSH #### [facility] [address] [place] [address] Dr. Shayy Hernandez Calcium [Mass/Vol] 8.9 mg/dL Normal 8.5-10.1 [facility] Comment on above: Performed By: #### C MP, TSH #### [facility] [address] [place] [address] Dr. Shayy Hernandez Chloride [Moles/Vol] 105 mmol/L Normal 98-107 [facility] Comment on above: Performed By: #### C MP, TSH #### [facility] [address] [place] [address] Dr. Shayy Hernandez CO2 [Moles/Vol] 24.3 mmol/L Normal 21.0-32.0 [facility] Comment on above: Performed By: #### C MP, TSH #### [facility] [address] [place] [address] Dr. Shayy Hernandez Creatinine [Mass/Vol] 0.94 mg/dL Normal 0.55-1.02 [facility] Comment on above: Performed By: #### C MP, TSH #### [facility] [address] [place] [address] Dr. Shayy Hernandez EGFR-AF TURKMEN >71 Normal >=60 [facility] Comment on above: Performed By: #### C MP, TSH #### [facility] [address] [place] [address] Dr. Shayy Hernandez EGFR-NON AF TURKMEN 59 mL/min/1.73m2 Critically low >=60 [facility] Comment on above: Performed By: #### C MP, TSH #### [facility] [address] [place] [address] Dr. Shayy Hernandez Globulin (S) [Mass/Vol] 3.1 g/dL Normal [facility] Comment on above: Performed By: #### C MP, TSH #### [facility] [address] [place] [address] Dr. Shayy Hernandez Glucose [Mass/Vol] 118 mg/dL Critically high 74-106 [facility] Comment on above: Performed By: #### C MP, TSH #### [facility] [address] [place] [address] Dr. Shayy Hernandez Potassium [Moles/Vol] 3.2 mmol/L Critically low 3.5-5.1 [facility] Comment on above: Performed By: #### C MP, TSH #### [facility] [address] [place] [address] Dr. Shayy Hernandez Protein [Mass/Vol] 6.9 g/dL Normal 6.4-8.2 [facility] Comment on above: Performed By: #### C MP, TSH #### [facility] [address] [place] [address] Dr. Shayy Hernandez Sodium [Moles/Vol] 140 mmol/L Normal 136-145 [facility] Comment on above: Performed By: #### C MP, TSH #### [facility] [address] [place] [address] Dr. Shayy Hernandez Urea nitrogen [Mass/Vol] 13.0 mg/dL Normal 7.0-18.0 [facility] Comment on above: Performed By: #### C MP, TSH #### [facility] [address] [place] [address] Dr. Shayy Hernandez Urea nitrogen/Creatinine [Mass ratio] 13.8 mg/mg Normal [facility] Comment on above: Performed By: #### C MP, TSH #### [facility] [address] [place] [address] Dr. Shayy Hernandez TSHon 10-20-2022 TSH 1.896 uIU/mL Normal 0.358-3.740 [facility] Comment on above: Performed By: #### C MP, TSH #### [facility] [address] [place] [address] Dr. Shayy Hernandez COVID + FLU Quick Testingon 10-19-2022 SARS-CoV-2 (COVID-19) RNA BEKAH+probe Ql (Unsp spec) Negative [facility] [employer] Other COVID + FLU Quick Testing Negative [facility] [employer] Other Quick Strepon 10-19-2022 S. pyogenes Org specific cx Ql (Throat) Positive [facility] Other Quick Strep [facility] Other COVID/FLU/RSV RT-PCRon 10-08 SARS-CoV-2 (COVID-19) RNA BEKAH+probe Ql (Unsp spec) Negative [facility] [employer] Other COVID/FLU/RSV RT-PCR Negative [facility] [employer] Other Quick Strepon 10-08-2022 S. pyogenes Org specific cx Ql (Throat) Negative [facility] [employer] Other Quick Strep [facility] [employer] Other CBC AUTO DIFFon 08-28-2022 BASO # 0.0 103/ul Normal 0.0-0.1 [facility] Comment on above: Performed By: #### C BC #### [facility] [address] [place] [address] Dr. Shayy Hernandez Basophils/100 WBC (Bld) 0.8 % Normal 0.2-2.0 [facility] Comment on above: Performed By: #### C BC #### [facility] [address] [place] [address] Dr. Shayy Hernandez EO # 0.1 103/ul Normal 0.0-0.7 [facility] Comment on above: Performed By: #### C BC #### [facility] [address] [place] [address] Dr. Shayy Hernandez Eosinophils/100 WBC (Bld) 2.5 % Normal 0.9-7.0 [facility] Comment on above: Performed By: #### C BC #### [facility] [address] [place] [address] Dr. Shayy Hernandez Erythrocyte distribution width (RBC) [Ratio] 12.6 % Normal 11.0-15.0 [facility] Comment on above: Performed By: #### C BC #### [facility] [address] [place] [address] Dr. Shayy Hernandez Hematocrit (Bld) [Volume fraction] 37.6 % Normal 36.0-48.0 [facility] Comment on above: Performed By: #### C BC #### [facility] [address] [place] [address] Dr. Shayy Hernandez Hemoglobin (Bld) [Mass/Vol] 12.6 g/dL Normal 12.0-16.0 [facility] Comment on above: Performed By: #### C BC #### [facility] [address] [place] [address] Dr. Shayy Hernandez IG # 0.01 10e3/ul Normal 0.00-0.03 [facility] Comment on above: Performed By: #### C BC #### [facility] [address] [place] [address] Dr. Shayy Hernandez IG % 0.2 % Normal 0.0-0.5 [facility] Comment on above: Performed By: #### C BC #### [facility] [address] [place] [address] Dr. Shayy Hernandez LYMPH # 1.6 103/ul Normal 1.2-3.8 [facility] Comment on above: Performed By: #### C BC #### [facility] [address] [place] [address] Dr. Shayy Hernandez Lymphocytes/100 WBC (Bld) 31.4 % Normal 20.5-60.0 [facility] Comment on above: Performed By: #### C BC #### [facility] [address] [place] [address] Dr. Shayy Hernandez MANUAL DIFF REQ NO Normal [facility] Comment on above: Performed By: #### C BC #### [facility] [address] [place] [address] Dr. Shayy Hernandez MCH (RBC) [Entitic mass] 29.4 pg Normal 26.7-34.0 [facility] Comment on above: Performed By: #### C BC #### [facility] [address] [place] [address] Dr. Shayy Hernandez MCHC (RBC) [Mass/Vol] 33.5 g/dL Normal 29.9-35.2 [facility] Comment on above: Performed By: #### C BC #### [facility] [address] [place] [address] Dr. Shayy Hernandez MCV (RBC) [Entitic vol] 87.9 fL Normal 81.0-99.0 [facility] Comment on above: Performed By: #### C BC #### [facility] [address] [place] [address] Dr. Shayy Hernandez MONO # 0.5 103/ul Normal 0.3-0.8 [facility] Comment on above: Performed By: #### C BC #### [facility] [address] [place] [address] Dr. Shayy Hernandez Monocytes/100 WBC (Bld) 8.6 % Normal 1.7-12.0 [facility] Comment on above: Performed By: #### C BC #### [facility] [address] [place] [address] Dr. Shayy Hernandez NEUT # 3.0 103/ul Normal 1.4-6.5 [facility] Comment on above: Performed By: #### C BC #### [facility] [address] [place] [address] Dr. Shayy Hernandez Neutrophils/100 WBC (Bld) 56.5 % Normal 43.0-75.0 [facility] Comment on above: Performed By: #### C BC #### [facility] [address] [place] [address] Dr. Shayy Hernandez Platelet mean volume (Bld) [Entitic vol] 10.1 fL Normal 9.5-13.5 [facility] Comment on above: Performed By: #### C BC #### [facility] [address] [place] [address] Dr. Shayy Hernandez PLT 193 103/ul Normal 150-450 [facility] Comment on above: Performed By: #### C BC #### [facility] [address] [place] [address] Dr. Shayy Hernandez RBC 4.28 106/ul Normal 4.20-5.40 [facility] Comment on above: Performed By: #### C BC #### [facility] [address] [place] [address] Dr. Shayy Hernandez WBC 5.2 103/ul Normal 4.0-11.0 [facility] Comment on above: Performed By: #### C BC #### [facility] [address] [place] [address] Dr. Shayy Hernandez ER URINE PROFILEon 2 Bilirubin Ql (U) Negative Normal NEGATIVE [facility] Comment on above: Performed By: #### F T4 #### [facility] [address] [place] [address] Dr. Shayy Hernandez Clarity (U) CLEAR Normal CLEAR [facility] Comment on above: Performed By: #### F T4 #### [facility] [address] [place] [address] Dr. Shayy Hernandez Color (U) LT. YELLOW Normal YELLOW [facility] Comment on above: Performed By: #### F T4 #### [facility] [address] [place] [address] Dr. Shayy Hernandez ERUAHD A micrscopic examina tion will be performed if indicated. Normal [facility] Comment on above: Performed By: #### F T4 #### [facility] [address] [place] [address] Dr. Shayy Hernandez Glucose Ql (U) Negative Normal NEGATIVE [facility] Comment on above: Performed By: #### F T4 #### [facility] [address] [place] [address] Dr. Shayy Hernandez Hemoglobin Ql (U) Negative Normal NEGATIVE [facility] Comment on above: Performed By: #### F T4 #### [facility] [address] [place] [address] Dr. Shayy Hernandez Ketones Ql (U) Negative Normal NEGATIVE [facility] Comment on above: Performed By: #### F T4 #### [facility] [address] [place] [address] Dr. Shayy Hernandez LEUKOCYTES Negative Normal NEGATIVE [facility] Comment on above: Performed By: #### F T4 #### [facility] [address] [place] [address] Dr. Shayy Hernandez Nitrite Ql (U) Negative Normal NEGATIVE [facility] Comment on above: Performed By: #### F T4 #### [facility] [address] [place] [address] Dr. Shayy Hernandez pH (U) 7.5 [pH] Normal 5-9 [facility] Comment on above: Performed By: #### F T4 #### [facility] [address] [place] [address] Dr. Shayy Hernandez SPEC GRAVITY 1.010 Normal 1.005-<=1.0 25 [facility] Comment on above: Performed By: #### F T4 #### [facility] [address] [place] [address] Dr. Shayy Hernandez UA PROTEIN Negative Normal NEGATIVE/ TRACE [facility] Comment on above: Performed By: #### F T4 #### [facility] [address] [place] [address] Dr. Shayy Hernandez UR MICRO IND NOT INDICATED Normal [facility] Comment on above: Performed By: #### F T4 #### [facility] [address] [place] [address] Dr. Shayy Hernandez Urobilinogen Qn (U) 0.2 {Marco A'U}/dL Normal 0.2 - 1. 0 [facility] Comment on above: Performed By: #### F T4 #### [facility] [address] [place] [address] Dr. Shayy Hernandez PROF CHEM 8 (BAS METB)on Anion gap [Moles/Vol] 9.8 mmol/L Normal [facility] Comment on above: Performed By: #### B MP #### [facility] [address] [address] [address] Shayy Hernandez Calcium [Mass/Vol] 9.1 mg/dL Normal 8.5-10.1 [facility] Comment on above: Performed By: #### B MP #### [facility] [address] [address] [address] Shayy Hernandez Chloride [Moles/Vol] 105 mmol/L Normal 98-107 [facility] Comment on above: Performed By: #### B MP #### [facility] [address] [address] [address] Shayy Hernandez CO2 [Moles/Vol] 27.6 mmol/L Normal 21.0-32.0 [facility] Comment on above: Performed By: #### B MP #### [facility] [address] [address] [address] Shayy Hernandez Creatinine [Mass/Vol] 1.07 mg/dL Critically high 0.55-1.02 [facility] Comment on above: Performed By: #### B MP #### [facility] [address] [address] [address] Shayy Hernandez EGFR-AF TURKMEN >60 Normal >=60 [facility] Comment on above: Performed By: #### B MP #### [facility] [address] [address] [address] Shayy Hernandez EGFR-NON AF TURKMEN 51 mL/min/1.73m2 Critically low >=60 [facility] Comment on above: Performed By: #### B MP #### [facility] [address] [address] [address] Shayy Hernandez Glucose [Mass/Vol] 91 mg/dL Normal 74-106 [facility] Comment on above: Performed By: #### B MP #### [facility] [address] [address] [address] Shayy Hernandez Potassium [Moles/Vol] 3.4 mmol/L Critically low 3.5-5.1 [facility] Comment on above: Performed By: #### B MP #### [facility] [address] [address] [address] Shayy Hernandez Sodium [Moles/Vol] 139 mmol/L Normal 136-145 [facility] Comment on above: Performed By: #### B MP #### [facility] [address] [address] [address] Shayy Hernandez Urea nitrogen [Mass/Vol] 19.0 mg/dL Critically high 7.0-18.0 [facility] Comment on above: Performed By: #### B MP #### [facility] [address] [address] [address] Shayy Hernandez Urea nitrogen/Creatinine [Mass ratio] 17.8 mg/mg Normal [facility] Comment on above: Performed By: #### B MP #### [facility] [address] [address] [address] Shayy Hernandez XR LSPINE 2_3 VIEWSon [...] BUCK AGUIRRE Date: 2022-08-28 13:56 Normal [facility] PROF 14(COMP METB)on 022 Albumin [Mass/Vol] 3.9 g/dL Normal 3.4-5.0 [facility] Comment on above: Performed By: #### C MP #### [facility] [address] [place] [address] Dr. Shayy Hernandez Albumin/Globulin [Mass ratio] 1.4 {ratio} Normal [facility] Comment on above: Performed By: #### C MP #### [facility] [address] [address] [address] Shayy Hernandez ALP [Catalytic activity/Vol] 67 U/L Normal 46-116 [facility] Comment on above: Performed By: #### C MP #### [facility] [address] [place] [address] Dr. Shayy Hernandez ALT [Catalytic activity/Vol] 28 U/L Normal 14-59 [facility] Comment on above: Performed By: #### C MP #### [facility] [address] [address] [address] Shayy Hernandez Anion gap [Moles/Vol] 12.2 mmol/L Normal [facility] Comment on above: Performed By: #### C MP #### [facility] [address] [place] [address] Dr. Shayy Hernandez AST [Catalytic activity/Vol] 15 U/L Normal 15-37 [facility] Comment on above: Performed By: #### C MP #### [facility] [address] [place] [address] Dr. Shayy Hernandez Bilirubin [Mass/Vol] 0.6 mg/dL Normal 0.2-1.0 [facility] Comment on above: Performed By: #### C MP #### [facility] [address] [place] [address] Dr. Shayy Hernandez Calcium [Mass/Vol] 8.7 mg/dL Normal 8.5-10.1 [facility] Comment on above: Performed By: #### C MP #### [facility] [address] [place] [address] Dr. Shayy Hernandez Chloride [Moles/Vol] 106 mmol/L Normal 98-107 [facility] Comment on above: Performed By: #### C MP #### [facility] [address] [address] [address] Shayy Hernandez CO2 [Moles/Vol] 28.2 mmol/L Normal 21.0-32.0 [facility] Comment on above: Performed By: #### C MP #### [facility] [address] [address] [address] Shayy Hernandez Creatinine [Mass/Vol] 1.08 mg/dL Critically high 0.55-1.02 [facility] Comment on above: Performed By: #### C MP #### [facility] [address] [address] [address] Shayy Hernandez EGFR-AF TURKMEN >60 Normal >=60 [facility] Comment on above: Performed By: #### C MP #### [facility] [address] [address] [address] Shayy Hernandez EGFR-NON AF TURKMEN 50 mL/min/1.73m2 Critically low >=60 [facility] Comment on above: Performed By: #### C MP #### [facility] [address] [address] [address] Shayy Hernandez Globulin (S) [Mass/Vol] 2.8 g/dL Normal [facility] Comment on above: Performed By: #### C MP #### [facility] [address] [address] [address] Shayy Hernandez Glucose [Mass/Vol] 127 mg/dL Critically high 74-106 [facility] Comment on above: Performed By: #### C MP #### [facility] [address] [address] [address] Shayy Hernandez Potassium [Moles/Vol] 3.4 mmol/L Critically low 3.5-5.1 [facility] Comment on above: Performed By: #### C MP #### [facility] [address] [address] [address] Shayy Hernandez Protein [Mass/Vol] 6.7 g/dL Normal 6.4-8.2 [facility] Comment on above: Performed By: #### C MP #### [facility] [address] [address] [address] Shayy Hernandez Sodium [Moles/Vol] 143 mmol/L Normal 136-145 [facility] Comment on above: Performed By: #### C MP #### [facility] [address] [address] [address] Shayy Hernandez Urea nitrogen [Mass/Vol] 16.0 mg/dL Normal 7.0-18.0 [facility] Comment on above: Performed By: #### C MP #### [facility] [address] [place] [address] Dr. Shayy Hernandez Urea nitrogen/Creatinine [Mass ratio] 14.8 mg/mg Normal [facility] Comment on above: Performed By: #### C MP #### [facility] [address] [place] [address] Dr. Shayy Hernandez COVID Quick Testingon 2021 Result Negative [facility] [employer] Other Quick Fluon 04-11-2022 FLUAV Ab CF (S) [Titer] Negative [facility] [employer] Other FLUBV Ab CF (S) [Titer] Negative [employer] [facility] [employer] Other Quick Strepon 04-11-2022 S. pyogenes Org specific cx Ql (Throat) Positive [facility] [employer] Other Quick Strep [facility] [employer] Other ER URINE PROFILEon 2 Bilirubin Ql (U) Negative Normal NEGATIVE [facility] Comment on above: Performed By: #### F T4 #### [facility] [address] [place] [address] Dr. Shayy Hernandez Clarity (U) CLEAR Normal CLEAR [facility] Comment on above: Performed By: #### F T4 #### [facility] [address] [place] [address] Dr. Shayy Hernandez Color (U) LT. YELLOW Normal YELLOW [facility] Comment on above: Performed By: #### F T4 #### [facility] [address] [place] [address] Dr. Shayy Hernandez ERUAHD A micrscopic examina tion will be performed if indicated. Normal [facility] Comment on above: Performed By: #### F T4 #### [facility] [address] [place] [address] Dr. Shayy Hernandez Glucose Ql (U) Negative Normal NEGATIVE [facility] Comment on above: Performed By: #### F T4 #### [facility] [address] [place] [address] Dr. Shayy Hernandez Hemoglobin Ql (U) Negative Normal NEGATIVE [facility] Comment on above: Performed By: #### F T4 #### [facility] [address] [place] [address] Dr. Shayy Hernandez Ketones Ql (U) Negative Normal NEGATIVE [facility] Comment on above: Performed By: #### F T4 #### [facility] [address] [place] [address] Dr. Shayy Hernandez LEUKOCYTES Negative Normal NEGATIVE [facility] Comment on above: Performed By: #### F T4 #### [facility] [address] [place] [address] Dr. Shayy Hernandez Nitrite Ql (U) Negative Normal NEGATIVE [facility] Comment on above: Performed By: #### F T4 #### [facility] [address] [place] [address] Dr. Shayy Hernandez pH (U) 7.5 [pH] Normal 5-9 [facility] Comment on above: Performed By: #### F T4 #### [facility] [address] [place] [address] Dr. Shayy Hernandez SPEC GRAVITY <=1.005 Abnormal 1.005-<=1.0 25 [facility] Comment on above: Performed By: #### F T4 #### [facility] [address] [place] [address] Dr. Shayy Hernandez UA PROTEIN Negative Normal NEGATIVE/ TRACE [facility] Comment on above: Performed By: #### F T4 #### [facility] [address] [place] [address] Dr. Shayy Hernandez UR MICRO IND NOT INDICATED Normal [facility] Comment on above: Performed By: #### F T4 #### [facility] [address] [place] [address] Dr. Shayy Hernandez Urobilinogen Qn (U) 0.2 {Marco A'U}/dL Normal 0.2 - 1. 0 [facility] Comment on above: Performed By: #### F T4 #### [facility] [address] [place] [address] Dr. Shayy Hernandez ALDOSTERONE, 24 HOUR URINEon 02-04-2022 Aldosterone (24H U) [Mass/Time] 3.0 ug/24hr Normal 3.0-<28.1 [facility] Comment on above: Order Comment: Karoline yang Type: URINE SPECIMEN Ordering Facility: [facility] Address: [address] [place] [address] Performed By: #### L [id number] #### [facility] CLIA [id number] [address] [place] [address] [place] ALDOSTERONE/DIRECT RENIN RAT IOon 02-04-2022 LENORA RENIN RATIO 4.9 High <3.8 [facility] Comment on above: Order Comment: Karoline yang Type: BLOOD SPECIMEN Ordering Facility: [facility] Address: [address] [place] [address] Result Comment: A ra darek of aldosterone in ng/dL to direct renin in pg/mL greater than or equal to 3.8 is a positive screening test result for primary aldosteronism, when aldosterone is greater than or equal to 15 ng/dL. Performed By: #### A LDREN #### [facility] CLIA [id number] [address] [place] [address] [place] Aldosterone [Mass/Vol] 10.3 ng/dL Normal 0.0-<35.4 [facility] Comment on above: Order Comment: Karoline yang Type: BLOOD SPECIMEN Ordering Facility: [facility] Address: [address] [place] [address] Result Comment: The reference interval for serum/plasma [...] ng/dL. Performed By: #### A LDREN #### [facility] CLIA [id number] [address] [place] [address] [place] DIRECT RENIN 2.1 pg/mL Low 3.6-81.6 [facility] Comment on above: Order Comment: Speci men Type: BLOOD SPECIMEN Ordering Facility: [facility] Address: [address] [place], [place] [id number] Result Comment: The reference interval for direct [...] ng/dL. Performed By: #### A LDREN #### [facility] CLIA [id number] [address] [place] [address] [place] PATIENT UPRIGHT OR SUPINE Upright Normal [facility] Comment on above: Order Comment: Speci men Type: BLOOD SPECIMEN Ordering Facility: [facility] Address: [address] [place] [address] Performed By: #### A LDREN #### [facility] CLIA [id number] [address] [place] [address] [place] Comprehensive metabolic 2000 panelon 02-04-2022 Albumin [Mass/Vol] 4.8 g/dL Normal 3.9-4.9 [facility] Comment on above: Order Comment: Speci men Type: BLOOD SPECIMEN Ordering Facility: [facility] Address: [address] [place], [place] [address] Performed By: #### 2 4323-8 #### [facility] CLIA [id number] [address] [place] [address] ALP [Catalytic activity/Vol] 79 U/L Normal 34-123 [facility] Comment on above: Order Comment: Speci men Type: BLOOD SPECIMEN Ordering Facility: [facility] Address: [address] [place], [place] [phone] Performed By: #### 2 4323-8 #### [facility] CLIA [id number] [address] [place] [address] ALT [Catalytic activity/Vol] 21 U/L Normal 7-38 [facility] Comment on above: Order Comment: Speci men Type: BLOOD SPECIMEN Ordering Facility: [facility] Address: [address] [place], [place] [address] Performed By: #### 2 4323-8 #### [facility] CLIA [id number] [address] [place] [address] Anion gap [Moles/Vol] 12 mmol/L Normal 9-18 [facility] Comment on above: Order Comment: Speci men Type: BLOOD SPECIMEN Ordering Facility: [facility] Address: [address] [place] [address] Performed By: #### 2 4323-8 #### [facility] CLIA [id number] [address] [place] [address] AST [Catalytic activity/Vol] 20 U/L Normal 13-35 [facility] Comment on above: Order Comment: Speci men Type: BLOOD SPECIMEN Ordering Facility: [facility] Address: [address] [place] [address] Performed By: #### 2 4323-8 #### [facility] CLIA [id number] [address] [place] [address] Bilirubin [Mass/Vol] 0.6 mg/dL Normal 0.2-1.3 [facility] Comment on above: Order Comment: Speci men Type: BLOOD SPECIMEN Ordering Facility: [facility] Address: [address] [place], [place] [address] Performed By: #### 2 4323-8 #### [facility] CLIA [id number] [address] [place] [address] Calcium [Mass/Vol] 9.6 mg/dL Normal 8.5-10.2 [facility] Comment on above: Order Comment: Speci men Type: BLOOD SPECIMEN Ordering Facility: [facility] Address: [address] [address] Performed By: #### 2 4323-8 #### [facility] CLIA [id number] [address] [place] [address] Chloride [Moles/Vol] 105 mmol/L Normal 97-105 [facility] Comment on above: Order Comment: Speci men Type: BLOOD SPECIMEN Ordering Facility: [facility] Address: [address] [place] [address] Performed By: #### 2 4323-8 #### [facility] CLIA [id number] [address] [place] [address] CO2 [Moles/Vol] 26 mmol/L Normal 22-30 [facility] Comment on above: Order Comment: Speci men Type: BLOOD SPECIMEN Ordering Facility: [facility] Address: [address] [place] [address] Performed By: #### 2 4323-8 #### [facility] CLIA [id number] [address] [place] [address] Creatinine [Mass/Vol] 1.08 mg/dL High 0.58-0.96 [facility] Comment on above: Order Comment: Speci men Type: BLOOD SPECIMEN Ordering Facility: [facility] Address: [address] [place] [address] Performed By: #### 2 4323-8 #### [facility] CLIA [id number] [address] [place] [address] ESTIMATED GLOMERULAR FILTRATION RATE 56 mL/min/1.73m??? Low >=60 [facility] Comment on above: Order Comment: Speci men Type: BLOOD SPECIMEN Ordering Facility: [facility] Address: [address] [place] [address] Result Comment: Tashia mated Glomerular Filtration Rate [...] GFR. Performed By: #### 2 4323-8 #### [facility] CLIA [id number] [address] [place] [address] Glucose [Mass/Vol] 111 mg/dL High 74-99 [facility] Comment on above: Order Comment: Karoline yang Type: BLOOD SPECIMEN Ordering Facility: [facility] Address: [address] [place] [phone] Result Comment: The [place] [employer] (ADA) provides guidance for cutoff [...] Standards of Medical Care in Diabetes 2016, [place] [employer]. Diabetes Care. 2016.39(Suppl 1). Performed By: #### 2 4323-8 #### [facility] CLIA [id number] [address] [place] [address] Potassium [Moles/Vol] 3.9 mmol/L Normal 3.7-5.1 [facility] Comment on above: Order Comment: Karoline yang Type: BLOOD SPECIMEN Ordering Facility: [facility] Address: [address] [place] [address] Performed By: #### 2 4323-8 #### [facility] CLIA [id number] [address] [place] [address] Protein [Mass/Vol] 6.9 g/dL Normal 6.3-8.0 [facility] Comment on above: Order Comment: Karoline yang Type: BLOOD SPECIMEN Ordering Facility: [facility] Address: [address] Performed By: #### 2 4323-8 #### [facility] CLIA [id number] [address] [place] [address] Sodium [Moles/Vol] 143 mmol/L Normal 136-144 [facility] Comment on above: Order Comment: Speci men Type: BLOOD SPECIMEN Ordering Facility: [facility] Address: [address] [place] [address] Performed By: #### 2 4323-8 #### [facility] CLIA [id number] [address] [place] [address] Urea nitrogen [Mass/Vol] 11 mg/dL Normal 7-21 [facility] Comment on above: Order Comment: Speci men Type: BLOOD SPECIMEN Ordering Facility: [facility] Address: [address] [place] [address] Performed By: #### 2 4323-8 #### [facility] CLIA [id number] [address] [place] [address] Sodium (24H U) [Moles/Time]o n 02-04-2022 PERIOD (HRS) 24 hours Normal [facility] Comment on above: Order Comment: Speci men Type: TIMED URINE SPECIMEN Ordering Facility: [facility] Address: [address] [place] [address] Performed By: #### 2 956-1 #### [facility] CLIA [id number] [address] [facility] [id number] [id number] [place] [facility] CLIA [id number] [address] [place] [address] VOLUME (ML) 1925 mL Normal [facility] Comment on above: Order Comment: Speci men Type: TIMED URINE SPECIMEN Ordering Facility: [facility] Address: [address] [place] [id number] Performed By: #### 2 956-1 #### [facility] CLIA [id number] [address] [place], [place] [id number] [facility] CLIA [id number] [address] [place] [address]447 Sodium 24h Ur-sRateon 2021 Sodium (24H U) [Moles/Time] 231 mmol/24 hr High 40-220 [facility] Comment on above: Order Comment: Speci men Type: TIMED URINE SPECIMEN Ordering Facility: [facility] Address: [address] [place], [place] [address] Performed By: #### 2 956-1 #### [facility] CLIA [id number] [address] [place] [address] LAB CLIA [id number] [address] [place] [address]473 CNPNon 01-01-2022 CNPN Telephone (ENDOMN) ----- SYED MICHELLE ([id number]) 1950 F Date Time Provider Department 01/01/22 ASHANTI FOOTE During your visit today, we recorded the following information about you: Arlette Boo Jv Rental Counter Clerk 01/01/2022 12:27 PM Signed Received various [...] Reason for Visit: Received Outside Medical Records [2217] Cmt: Referral Documents Prescriptions as of 01/23/2022 [...] Status:Closed by ASHANTI FOOTE on 01/23/22 Normal [facility] ALDOSTERONE, 24 HOUR URINEon 12-29-2021 Aldosterone (24H U) [Mass/Time] 4.3 ug/24hr Normal 3.0-<28.1 [facility] Comment on above: Order Comment: Speci men Type: URINE SPECIMEN Ordering Facility: [facility] Address: [address] [place] [address] [place] [address] Performed By: #### L [id number] #### [facility] CLIA [id number] [address] [place] [address] Sodium (24H U) [Moles/Time]o n 12-29-2021 PERIOD (HRS) 24 hours Normal [facility] Comment on above: Order Comment: Speci men Type: TIMED URINE SPECIMEN Ordering Facility: [facility] Address: [address] [place] [address] Performed By: #### 2 956-1 #### [facility] CLIA [id number] [address] [place] [address] LAB CLIA [id number] [address] [place] [address]876 VOLUME (ML) 1225 mL Normal [facility] Comment on above: Order Comment: Speci men Type: TIMED URINE SPECIMEN Ordering Facility: [facility] Address: [address] [place] [phone] Performed By: #### 2 956-1 #### [facility] CLIA [id number] [address] [place] [address] LAB CLIA [id number] [address] [place] [address] Sodium 24h Ur-sRateon 2021 Sodium (24H U) [Moles/Time] 107 mmol/24 hr Normal 40-220 [facility] Comment on above: Order Comment: Speci men Type: TIMED URINE SPECIMEN Ordering Facility: [facility] Address: [address] [place] [phone] Performed By: #### 2 956-1 #### [facility] CLIA [id number] [address] [place] [address] LAB CLIA [id number] [address] [place] [address] ALDOSTERONE/DIRECT RENIN RAT IOon 12-24-2021 LENORA RENIN RATIO Normal [facility] Comment on above: Order Comment: Speci men Type: BLOOD SPECIMEN Ordering Facility: [facility] Address: [address] [place] [address] Result Comment: Unab le to calculate because one or more components used in calculation is outside assay range. Performed By: #### A LDREN #### [facility] CLIA [id number] [address] [place] [address] [place] Aldosterone [Mass/Vol] 8.6 ng/dL Normal 0.0-<35.4 [facility] Comment on above: Order Comment: Speci men Type: BLOOD SPECIMEN Ordering Facility: [facility] Address: [address] [place] [address] Result Comment: The reference interval for serum/plasma aldosterone is based on a normal sodium intake and upright position. High sodium intake may suppress aldosterone and low sodium intake may increase aldosterone. The supine reference interval is <23.7 ng/dL. Performed By: #### A LDREN #### [facility] CLIA [id number] [address] [place] [address] [place] DIRECT RENIN <2.1 Low 3.6-81.6 [facility] Comment on above: Order Comment: Speci men Type: BLOOD SPECIMEN Ordering Facility: [facility] Address: [address] [place] [address] Performed By: #### A LDREN #### [facility] CLIA [id number] [address] [place] [address] [facility] [place] PATIENT UPRIGHT OR SUPINE Upright Normal [facility] Comment on above: Order Comment: Speci men Type: BLOOD SPECIMEN Ordering Facility: [facility] Address: [address] [place] [address] Performed By: #### A LDREN #### [facility] CLIA [id number] [address] [place] [address] [place] CNOVon 12-24-2021 CNOV Office Visit (ENDOMN ) ----- SYED MICHELLE ([id number]) 1950 F Date Time Provider Department 12/24/21 1:00 PM ASHANTI FOOTE During your visit today, we [...] these tests. Thank you for choosing the [facility] Department of Endocrinology, Diabetes and Metabolism. Did you know that you need to call 48 hours in advance of your scheduled visit, if you are unable to make your appointment? The [facility]inology [facility] Metabolism [facility] thanks you for your commitment, because patients not showing to their appointment results in a lost opportunity for patients to receive [facility] health care at the [facility]. To Cancel an appointment, please choose one of the following: - Call the Appointment Call Center at [phone] - From Siri, Go to Appointments ? Cancel Appts If cancelling, consider your need to reschedule to prevent further delays in your care. To Schedule an appointment, please choose one of the following: - Call the Appointment Call Center at [phone] - From [facility]i, Go to Appointments ? Request an Appt [...] bilateral subdural hematomas She normally follows in [place]. She sees a director radio news and they recommended she see endocrinology for [...] maintenance medication. Dr. Clifton is her new director radio news. On potassium during breast cancer treatment - [...] taking both beta blockers. Both PCP and director radio news change her BP meds. Current Outpatient Medications [...] once d (more content not included)... Normal [facility] Comprehensive metabolic 2000 panelon 12-24-2021 Albumin [Mass/Vol] 4.5 g/dL 3.9 - 4.9 g/dL [facility] ALP [Catalytic activity/Vol] 73 U/L 34 - 123 U/L [facility] ALT [Catalytic activity/Vol] 23 U/L 7 - 38 U/L [facility] Anion gap [Moles/Vol] 12 mmol/L 9 - 18 mmol/L [facility] AST [Catalytic activity/Vol] 25 U/L 13 - 35 U/L [facility] Bilirubin [Mass/Vol] 0.5 mg/dL 0.2 - 1 .3 mg/dL [facility] Calcium [Mass/Vol] 9.6 mg/dL 8.5 - 10. 2 mg/dL [facility] Chloride [Moles/Vol] 107 mmol/L High 97 - 10 5 mmol/L [facility] CO2 [Moles/Vol] 21 mmol/L Low 22 - 30 mmol/L [facility] Creatinine [Mass/Vol] 0.95 mg/dL 0.58 - 0.96 mg/dL [facility] Estimated Glomerular Filtration Rate 65 mL/min/1.73m >=60 mL/min/1.73 m [facility] Glucose [Mass/Vol] 81 mg/dL 74 - 99 mg/dL [facility] Potassium [Moles/Vol] 4.2 mmol/L 3.7 - 5.1 mmol/L [facility] Protein [Mass/Vol] 7.1 g/dL 6.3 - 8.0 g/dL [facility] Sodium [Moles/Vol] 140 mmol/L 136 - 144 mmol/L [facility] Urea nitrogen [Mass/Vol] 19 mg/dL 7 - 21 mg/dL [facility] Albumin [Mass/Vol] 4.5 g/dL Normal 3.9-4.9 [facility] Comment on above: Order Comment: Speci men Type: BLOOD SPECIMEN Ordering Facility: [facility] Address: [address] [place] [address] Performed By: #### 2 4323-8 #### [facility] CLIA [id number] [address] [place] [address] [place] ALP [Catalytic activity/Vol] 73 U/L Normal 34-123 [facility] Comment on above: Order Comment: Speci men Type: BLOOD SPECIMEN Ordering Facility: [facility] Address: [address] [place] [address] Performed By: #### 2 4323-8 #### [facility] CLIA [id number] [address] [place] [address] [place] ALT [Catalytic activity/Vol] 23 U/L Normal 7-38 [facility] Comment on above: Order Comment: Speci men Type: BLOOD SPECIMEN Ordering Facility: [facility] Address: [address] [place] [address] Performed By: #### 2 4323-8 #### [facility] CLIA [id number] [address] [place] [address] [place] Anion gap [Moles/Vol] 12 mmol/L Normal 9-18 [facility] Comment on above: Order Comment: Speci men Type: BLOOD SPECIMEN Ordering Facility: [facility] Address: [address] [place] [address] Performed By: #### 2 4323-8 #### [facility] CLIA [id number] [address] [place] [address] [place] AST [Catalytic activity/Vol] 25 U/L Normal 13-35 [facility] Comment on above: Order Comment: Speci men Type: BLOOD SPECIMEN Ordering Facility: [facility] Address: [address] [place], [place] [address] Performed By: #### 2 4323-8 #### [facility] CLIA [id number] [address] [place] [address] [place] Bilirubin [Mass/Vol] 0.5 mg/dL Normal 0.2-1.3 [facility] Comment on above: Order Comment: Speci men Type: BLOOD SPECIMEN Ordering Facility: [facility] Address: [address] [place], [place] [address] Performed By: #### 2 4323-8 #### [facility] CLIA [id number] [address] [place] [address] [place] Calcium [Mass/Vol] 9.6 mg/dL Normal 8.5-10.2 [facility] Comment on above: Order Comment: Speci men Type: BLOOD SPECIMEN Ordering Facility: [facility] Address: [address] [place] [address] Performed By: #### 2 4323-8 #### [facility] CLIA [id number] [address] [place] [address] [place] Chloride [Moles/Vol] 107 mmol/L High 97-105 [facility] Comment on above: Order Comment: Speci men Type: BLOOD SPECIMEN Ordering Facility: [facility] Address: [address] [place] [address] Performed By: #### 2 4323-8 #### [facility] CLIA [id number] [address] [place] [address] [place] CO2 [Moles/Vol] 21 mmol/L Low 22-30 [facility] Comment on above: Order Comment: Speci men Type: BLOOD SPECIMEN Ordering Facility: [facility] Address: [address] [place] [address] Performed By: #### 2 4323-8 #### [facility] CLIA [id number] [address] [place] [address] [place] Creatinine [Mass/Vol] 0.95 mg/dL Normal 0.58-0.96 [facility] Comment on above: Order Comment: Speci men Type: BLOOD SPECIMEN Ordering Facility: [facility] Address: [address] [place] [address] Performed By: #### 2 4323-8 #### [facility] CLIA [id number] [address] [place] [address] [facility] ESTIMATED GLOMERULAR FILTRATION RATE 65 mL/min/1.73m??? Normal >=60 [facility] Comment on above: Order Comment: Speci men Type: BLOOD SPECIMEN Ordering Facility: [facility] Address: [address] [place] [address] Result Comment: Tashia mated Glomerular Filtration Rate [...] GFR. Performed By: #### 2 4323-8 #### [facility] CLIA [id number] [address] [place] [address] [place] Glucose [Mass/Vol] 81 mg/dL Normal 74-99 [facility] Comment on above: Order Comment: Speci men Type: BLOOD SPECIMEN Ordering Facility: [facility] Address: [address] [place] [address] Result Comment: The [place] [employer] (ADA) provides guidance for cutoff [...] Standards of Medical Care in Diabetes 2016, [place] [employer]. Diabetes Care. 2016.39(Suppl 1). Performed By: #### 2 4323-8 #### [facility] CLIA [id number] [address] [place] [address] [place] Potassium [Moles/Vol] 4.2 mmol/L Normal 3.7-5.1 [facility] Comment on above: Order Comment: Speci men Type: BLOOD SPECIMEN Ordering Facility: [facility] Address: [address] [place] [address] Performed By: #### 2 4323-8 #### [facility] CLIA [id number] [address] [place] [address] [place] Protein [Mass/Vol] 7.1 g/dL Normal 6.3-8.0 [facility] Comment on above: Order Comment: Yaquelini men Type: BLOOD SPECIMEN Ordering Facility: [facility] Address: [address] [place], [place] [id number] Performed By: #### 2 4323-8 #### [facility] CLIA [id number] [address] [place] [address] [place] Sodium [Moles/Vol] 140 mmol/L Normal 136-144 [facility] Comment on above: Order Comment: Yaquelini men Type: BLOOD SPECIMEN Ordering Facility: [facility] Address: [address] [place], [place] [address] Performed By: #### 2 4323-8 #### [facility] CLIA [id number] [address] [place] [address] [place] Urea nitrogen [Mass/Vol] 19 mg/dL Normal 7-21 [facility] Comment on above: Order Comment: Speci men Type: BLOOD SPECIMEN Ordering Facility: [facility] Address: [address] [place] [address] Performed By: #### 2 4323-8 #### [facility] CLIA [id number] [address] [place], [place] [address] [place] CT HEAD WO CONTRASTon 2020 CT HEAD WO CONTRAST Patient Name: SYED MICHELLE STUDY: CT HEAD WO CONTRAST; 04/02/2021 10:51 am INDICATION: subdural hematoma. COMPARISON: Head CT 02/08/2021 ACCESSION NUMBER(S): [id number] ORDERING CLINICIAN: ANALY ANTHONY TECHNIQUE: Noncontrast axial [...] Electronically signed by: NAE KERR MD Normal [facility] CT Head without Contraston 0 04-02-2021 CT Head limited WO contrast Please click on the link to view the study images Normal [facility] Work Phone: Established Visit (Neurosurg maxime)on 04-02-2021 [...] TABS Vitals Vital Signs Recorded: 02Apr2021 11:13AM Iuoojtiieda62 Height5 ft 8 in Dkelxm209 lb BMI Ukdwncqqvo57.53 kg/m2 BSA Calculated1.73 Tobacco Usea) Yes Fall Screeninga) No falls within the last year Pain Scale0/10 Time Prep time on date of the patient encounter: 5 minutes. Time spent directly with patient/family/caregiver: 10 minutes. Documentation time: 5 minutes. Total time on date of patient encounter: 20 minutes. Signatures Electronically signed by : Analy Anthony MD; Apr 04 2021 10:09PM EST (Author) Normal [employer] Tobacco Screening.on 021 Fall risk assessment a) No falls within the last year [facility] Work Phone: Tobacco use status [facility] a) Yes [facility] Work Phone: CT HEAD WO CONTRASTon 2020 CT HEAD WO CONTRAST Patient Name: SYED MICHELLE STUDY: CT HEAD WO CONTRAST; 03/05/2021 9:38 am INDICATION: F/U CTH for bilateral SDH's. COMPARISON: Prior exam is from 02/08/2021. ACCESSION NUMBER(S): [id number] ORDERING CLINICIAN: ANALY ANTHONY TECHNIQUE: Routine axial [...] . Electronically signed by: MARS JIMENEZ MD [facility] Established Visit (Neurosurg maxime)on 03-05-2021 Established [...] Losartan Potassium TABS Vitals Vital Signs Recorded: [id number] 11:31AM Olayaaprbxz83 Xzlpcxbc523 Njfrkkkib53 Height5 ft 8 in Hakwfl885 lb BMI Yfjbnxvqnk89.53 kg/m2 BSA Calculated1.73 Tobacco Usea) Yes Fall Screeninga) No falls within the last year Pain Scale0/10 Time Prep time on date of the patient encounter: 10 minutes. Time spent directly with patient/family/caregiver: 15 minutes. Documentation time: 30 minutes. Total time on date of patient encounter: minutes. Signatures Electronically signed by : Analy Anthony MD; Mar 09 2021 6:11PM EST (Author) Normal [employer] Tobacco Screening.on 021 Fall risk assessment a) No falls within the last year [facility] Work Phone: Tobacco use status CP a) Yes [facility] Work Phone: Tobacco Screening. a) Yes [facility] Work Phone: Admission Risk Screen - Adul [...] Preferencesaudio; written material Cultural Considerationsnone Developmental Considerationsnone Baptism Considerationsnone Learning Assessment (Other Learner): Other learner availableno Depression Screen: During the past month, have you often been bothered by feeling down, depressed or hopelessno During the past month, have you often had little interest or pleasure in doing thingsno Have you had any thoughts of harming anyone elseno [place] Suicide: Risk Screen Not Applicable/Able to Answerable to be screened In the Past Month: Have you wished you were or could go to sleep and not wake upno In the Past Month: Have you had any actual thoughts of killing yourselfno Lifetime: Have you ever done, started to do, or prepared to do anything to end your lifeno [place] Suicide Risknegative Adult Nutrition Screen: Have you [...] Spiritual Screen: Are there any cultural, spiritual, confucianism practices/values/needs that are important for us to knowno CAGE: Is this an injured patient at a Trauma Center ([facility]/[place]/ [place]): no Vaccinations: Vaccination - Influenza Vaccination Screen: [...] Authored: Admis (more content not included)... Normal [facility] CBC AND DIFFERENTIALon 02-08 % AUTOMATED IMMATURE GRAN 0.4 % Normal 0.0 - 0.9 [facility] Comment on above: Result Comment: Susy ture Granulocyte Count (IG) includes promyelocytes, myelocytes and metamyelocytes but does not include bands. Percent differential counts (%) should be interpreted in the context of the absolute cell counts (cells/L). Performed By: #### C BCDF #### [facility] [address] [place] [address] Basophils (Bld) [#/Vol] 0.04 10*3/uL Normal 0.00 - 0.10 [facility] Comment on above: Performed By: #### C BCDF #### [facility] [address] [place] [address] Basophils/100 WBC (Bld) 0.7 % Normal 0.0 - 2.0 [facility] Comment on above: Performed By: #### C BCDF #### [facility] [address] [place] [address] Eosinophils (Bld) [#/Vol] 0.27 10*3/uL Normal 0.00 - 0.70 [facility] Comment on above: Performed By: #### C BCDF #### [facility] [address] [place] [address] Eosinophils/100 WBC (Bld) 4.8 % Normal 0.0 - 6.0 [facility] Comment on above: Performed By: #### C BCDF #### [facility] [address] [place] [address] Erythrocyte distribution width (RBC) [Ratio] 13.1 % Normal 11.5 - 14.5 [facility] Comment on above: Performed By: #### C BCDF #### [facility] [address] [place] [address] Hematocrit (Bld) [Volume fraction] 33.9 % Low 36.0 - 46.0 [facility] Comment on above: Performed By: #### C BCDF #### [place] [address] [place] [address] Hemoglobin (Bld) [Mass/Vol] 11.0 g/dL Low 12.0 - 16.0 [facility] Comment on above: Performed By: #### C BCDF #### [facility] [address] [place] [address] Lymphocytes (Bld) [#/Vol] 1.57 10*3/uL Normal 1.20 - 4.80 [facility] Comment on above: Performed By: #### C BCDF #### [facility] [address] [place] [address] Lymphocytes/100 WBC (Bld) 27.8 % Normal 13.0 - 44.0 [facility] Comment on above: Performed By: #### C BCDF #### [facility] [address] [place] [address] MCHC (RBC) [Mass/Vol] 32.4 g/dL Normal 32.0 - 36.0 [facility] Comment on above: Performed By: #### C BCDF #### [facility] [address] [place] [address] MCV (RBC) [Entitic vol] 92 fL Normal 80 - 100 [facility] Comment on above: Performed By: #### C BCDF #### [facility] [address] [place] [address] Monocytes (Bld) [#/Vol] 0.48 10*3/uL Normal 0.10 - 1.00 [facility] Comment on above: Performed By: #### C BCDF #### [facility] [address] [place] [address] Monocytes/100 WBC (Bld) 8.5 % Normal 2.0 - 10.0 [facility] Comment on above: Performed By: #### C BCDF #### [facility] [address] [place] [address] Neutrophils (Bld) [#/Vol] 3.26 10*3/uL Normal 1.20 - 7.70 [facility] Comment on above: Performed By: #### C BCDF #### [facility] [address] [place] [address] Neutrophils/100 WBC (Bld) 57.8 % Normal 40.0 - 80.0 [facility] Comment on above: Performed By: #### C BCDF #### [facility] [address] [place] [address] NUCLEATED RBC 0.0 /100 WBC Normal 0.0-0.0 [facility] Comment on above: Performed By: #### C BCDF #### [facility] [address] [place] [address] Platelets (Bld) [#/Vol] 195 10*3/uL Normal 150 - 450 [facility] Comment on above: Performed By: #### C BCDF #### [facility] [address] [place] [address] RBC 3.68 x10E12/L Low 4.00 - 5.20 [facility] Comment on above: Performed By: #### C BCDF #### [facility] [address] [place] [address] WBC (Bld) [#/Vol] 5.6 10*3/uL Normal 4.4 - 11.3 [facility] Comment on above: Performed By: #### C BCDF #### [facility] [address] [place] [address] COAGULATION SCREENon 021 aPTT Coag (Bld) [Time] 25 s Normal 25 - 35 [facility] Comment on above: Result Comment: THE APTT IS NO LONGER USED FOR MONITORING UNFRACTIONATED HEPARIN THERAPY. FOR MONITORING HEPARIN THERAPY, USE THE HEPARIN ASSAY. Performed By: #### C OAGS #### [facility] [address] [place] [address] PT Coag (PPP) [Time] 12.8 s Normal 10.1 - 13.3 [facility] Comment on above: Performed By: #### C OAGS #### [facility] [address] [place] [address] PT, INR 1.1 Normal 0.9 - 1.1 [facility] Comment on above: Performed By: #### C OAGS #### [facility] [address] [place] [address] CORONAVIRUS 2019, SCREEN ASY MPTOMATICon 02-08-2021 SARS-CoV-2 (COVID-19) RNA BEKAH+probe Ql (Unsp spec) Not detected Normal Not Detected [facility] Comment on above: Result Comment: . This assay is designed to detect the ORF1ab and/or S genes of SARS-CoV-2 via nucleic acid amplification. A Not Detected result does not preclude 2019-nCoV infection since the adequacy of sample collection and/or low viral burden may result in presence of viral nucleic acids below the clinical sensitivity of this test method. Fact sheet for providers: www.fda.gov/media/100764/download Fact sheet for patients: www.fda.gov/media/353668/download This test has received FDA Emergency Use Authorization (EUA) and has been verified by [facility] ([facility]). This test is only authorized for the duration of time that circumstances exist to justify the authorization of the emergency use of in vitro diagnostic tests for the detection of SARS-CoV-2 virus and/or diagnosis of COVID-19 infection under section 564(b)(1) of the Act, 21 U.S.C. 360bbb-3(b)(1), unless the authorization is terminated or revoked sooner. [facility] is certified under CLIA-88 as qualified to perform high complexity testing. Testing is performed in the [facility] laboratories located at [address] [place] [address]. Performed By: #### C OVSC ####[id number] [facility] [address] Lab Specimen Source Nasal, Nasopharyngeal Normal [facility] Comment on above: Performed By: #### C OVSC ####[id number] [facility] [address] CT Angio Neckon 02-08-2021 CTA Neck vessels W contrast IV Normal MG-Neurosurge [facility] Work Phone: CT Head without Contraston 0 02-08-2021 CT Head limited WO contrast Normal -Neurosurge [facility] Work Phone: Complete Blood Count + Diffe rentialon 02-08-2021 Basophils/100 WBC (Bld) 0.7 % 0.0 - 2.0 MG-Neurosurge [facility] Work Phone: Erythrocyte distribution width (RBC) [Ratio] 13.1 % See Below -Neurosurge [facility] Work Phone: Comment on above: [...] 5.6 10*3/uL 4.4 - 11.3 MG-Arash [facility]surge [facility] Work Phone: Complete Blood Count + Differential 0.04 {x10E9/L} See Below -Neurosurge [facility] Work Phone: Comment on above: Reference Range: 0.0 0 - 0.10 Complete Blood Count + Differential 0.27 {x10E9/L} See Below -Neurosurge [facility] Work Phone: Comment on above: Reference Range: 0.0 0 - 0.70 Complete Blood Count + Differential 0.48 {x10E9/L} See Below -Neurosurge [facility] Work Phone: Comment on above: Reference Range: 0.1 0 - 1.00 Complete Blood Count + Differential 1.57 {x10E9/L} See Below -Neurosurge [facility] Work Phone: Comment on above: Reference Range: 1.2 0 - 4.80 Complete Blood Count + Differential 3.26 {x10E9/L} See Below -Neurosurge [facility] Work Phone: Comment on above: Reference Range: 1.2 0 - 7.70 Complete Blood Count + Differential 4.8 % 0.0 - 6.0 -Neurosurge [facility] Work Phone: Complete Blood Count + Differential 0.4 % 0.0 - 0.9 -Neurosurge [facility] Work Phone: Comment on above: Immature Granulocyte Count (IG) includes promyelocytes, myelocytes and metamyelocytes but does not include bands. Percent differential counts (%) should be interpreted in the context of the absolute cell counts (cells/L). Complete Blood Count + Differential 0.0 {/100_WBC} 0.0-0.0 -Neurosurge [facility] Work Phone: Covid 19 Resultson 1 SARS-CoV-2 [...] You may also be contacted by the [facility] to see if any of your close [...] or Naproxen (Aleve) can also be used. Sujv-ifh-xateiao cough and cold medicines can be used according to the instructions on the package. Some osbo-gsy-skyxqej medicines also contain acetaminophen. Make sure you [...] water are not available, use alcohol-based hand emergency medicine physician. Avoid touching your eyes, nose, and mouth [...] 24 nikki (more content not included)... Normal [facility] Daily Progress Note-Shahana mason 02-08-2021 Daily Progress Note-Neurosurgery Service: Neurosurgery Subjective Data: SYED MICHELLE is a 70 year old Female who is Hospital Day # 2. Overnight Events: Patient had an uneventful night. Objective Data: Objective Information: T PRBPSpO2 Value36.30927110/5898% Date/Time02/08 4: 4: 4: 4: 4:00 Range(36.5C [...] the note. I personally evaluated the patient [id number] Electronic Signatures: Olegario Michel (Resident)) (Signed 08-Feb-2021 05:47) Authored: Service, Subjective Data, Objective Data, Assessment and Plan, Note Completion Analy Anthony) (Signed 08-Feb-2021 10:59) Authored: Note Completion Co-Signer: Service, Subjective Data, Objective Data, Assessment and Plan, Note Completion Last Updated: 08-Feb-2021 10:59 by Analy Anthony) Normal [facility] Discharge Planning Erhi5kj 0 02-08-2021 Discharge Planning Note2 Discharge Planning: Discharge Barriers (ex. Avoidable days, wait guardianship, pt refuse leave) None Anticipated Discharge [id number] Discharge Planning 02/08/2021 @ 10:57am Transitional Care Coordination Progress Note: Patient was discussed during interdisciplinary rounds. Team members present: medical team, MD, FLAME HARDENER, SW, PCN, and TCC. Plan per medical [...] were taken out. [facility] -Maya Roman RN Assessment: Discharge Planning Assessment [id number] Discharge Planning Assessment Completed byJesenia Murphy RN Primary Contact Name and NumberDru Santana [phone] Stated Reason for AdmissionIncrease b/p and Headache Arrived Fromhospital (1) Readmission Within the Last 30 Daysno previous admission in last 30 days PCPDr. Miller PCP Last Date Seen1 week ago [facility] Medication Adherence/Afford/Obtainye s InsuranceMedicare A/B Lives Withspouse(1) [...] ConsiderationsNone Transportation Home Indu/Viola Gonsales Anticipated Transition Tohome(1) Services Anticipated at [...] Profile - Adult v2 08-Feb-2021 00:44 Normal [facility] Discharge [id number] 021 Discharge Profile2 Discharge Orders: Anticipated Discharge Date: Anticipated Discharge [id number] Problem List: Admitting Dx: SDH (subdural hematoma): [...] Medical History Hospital Providers: Provider RoleProvider Name Analy Pereyra John T DNAR: DNAR Status: none Activity: [...] legs and/or calves. Follow-Up - Neurosurgeon: Physician/Dept/ServiceNeu rosurgeon Dr. Analy Anthony Scheduled Date/Kuzx41-Yys-6358 11:15 [facility]; [facility] [address] [place], [place] Phone [phone] Comments4 week follow up visit; to have CT scan of Head prior to this appointment; Bring Insurance Card and Photo ID Follow-Up: Physician/Dept/ServiceCAT Scan of Head Scheduled Date/Fhpk73-Ewp-6009 09:30 [facility], Radiology Department, 1st floor Registration; [address] [place], [place] Phone [phone] Commentsarrive 15 minutes early for registration; Bring [...] Review of Medication Reconciliation and Orders Completedby PHARMACIST ASSISTANT Reviewing ProviderKim PETRA Stuart at 08-Feb-2021 11:16:04 Electronic Signatures: Katie Stuart (PHARMACIST ASSISTANT-FLAME HARDENER) (Signed 08-Feb-2021 11:16) Authored: Discharge Orders, Neurosurgery, Hospital Course (Home Care/Gold Form), Provider FINAL REVIEW of Orders, Gold Form - Stile Ripsaw Operator Summary Last Updated: 08-Feb-2021 11:16 by Katie Stuart (PHARMACIST ASSISTANT- (more content not included)... Normal [facility] GLUCOSE-POCTon 02-08-2021 Glucose [Mass/Vol] 93 mg/dL Normal 74 - 99 [facility] Work Phone: Comment on above: Performed By: #### G KARI #### [facility] [address] [place] [address] Laboratory - Coagulationon 0 02-08-2021 aPTT Coag (PPP) [Time] 25 s 25 - 35 [facility] Work Phone: Comment on above: THE APTT IS NO LONGE R USED FOR MONITORING UNFRACTIONATED HEPARIN THERAPY. FOR MONITORING HEPARIN THERAPY, USE THE HEPARIN ASSAY. INR Coag (PPP) [Relative time] 1.1 {INR} 0.9 - 1.1 [facility] Work Phone: PT Coag (PPP) [Time] 12.8 s See Below [facility]N [facility] Work Phone: Comment on above: Reference Range: [...] COMPARISON: Outside MRI brain, 02/07/2021 ACCESSION NUMBER(S): [id number]; [id number]; [id number] ORDERING CLINICIAN: CARMEL MILES TECHNIQUE: Axial CT [...] intracranial nora (more content not included)... Normal [facility] NR CT ANGIO NECKon [address] ANGIO NECK Patient Name: VIVIANA SYED STUDY: CT HEAD WO CONTRAST; CT ANGIO NECK; CT ANGIO HEAD W/O-W INCLUDE POST PROC; 02/08/2021 1:23 am INDICATION: eval stability of subdural hematomas, Lie Flat: Yes; spontaneous subdural hematoma, eval for vascular lesion, Lie Flat: Yes COMPARISON: Outside MRI brain, 02/07/2021 ACCESSION NUMBER(S): [id number]; [id number]; [id number] ORDERING CLINICIAN: CARMEL MILES TECHNIQUE: Axial CT [...] intracranial nora (more content not included)... Normal [facility] NR CT HEAD WO CONTRASTon NR CT HEAD WO CONTRAST Patient Name: SYED MICHELLE STUDY: CT HEAD WO CONTRAST; CT ANGIO NECK; CT ANGIO HEAD W/O-W INCLUDE POST PROC; 02/08/2021 1:23 am INDICATION: eval stability of subdural hematomas, Lie Flat: Yes; spontaneous subdural hematoma, eval for vascular lesion, Lie Flat: Yes COMPARISON: Outside MRI brain, 02/07/2021 ACCESSION NUMBER(S): [id number]; [id number]; [id number] ORDERING CLINICIAN: CARMEL MILES TECHNIQUE: Axial CT [...] intracranial nora (more content not included)... Normal [facility] Order Reconciliationon 02-08 Order Reconciliation Page 1 Discharge Reconciliation Document Reconciliation Type: Discharge requested on behalf of Katie Stuart (Advanced Practice Nurse) done by Katie Stuart (PHARMACIST ASSISTANT-FLAME HARDENER) Discharge - Reconciliation: 08-Feb-2021 11:29 by: Katie Stuart (PHARMACIST ASSISTANT-FLAME HARDENER) Discharge - Reset to Incomplete: 08-Feb-2021 11:33 by: Katie Stuart (PHARMACIST ASSISTANT-FLAME HARDENER) Discharge - Reconciliation: 08-Feb-2021 11:34 by: Katie Stuart (PHARMACIST ASSISTANT-FLAME HARDENER) Home Medications EnteredHOME MEDICATIONS AT DISCHARGE DateReconciliation [...] - Severe (more content not included)... Normal [facility] Order Reconciliation Page 1 Admission Reconciliation Document Reconciliation Type: Admission requested on behalf of Carmel Miles (Resident) done by Carmel Miles ( (Resident)) Admission - Reconciliation: 07-Feb-2021 23:34 by: Carmel Miles ( (Resident)) Home MedicationsEnteredLast Dose TakenReconciled with current Order Reconciliation Comment/ Additional Information Aspir 81 oral delayed release tablet 1 tab(s) orally once a [id number]-Feb-2021 AM Reviewed and Held atorvastatin 80 mg oral tablet 1 tab(s) orally once a [id number]-Feb-2021 PM Atorvastatin Tablet (LIPITOR)DOSE = 80 mg Oral Daily atorvastatin 80 mg oral tablet continued as the inpatient order Atorvastatin carvedilol 25 mg oral tablet 1 tab(s) orally 2 times a [id number]-Feb-2021 AM Carvedilol Tablet (COREG)DOSE = 25 mg [...] oral capsule 1 cap(s) orally once a [id number]-Feb-2021 AM FLUoxetine Capsule (PROZAC)DOSE = 20 mg Oral DailyFLUoxetine 20 mg oral capsule continued as the inpatient order FLUoxetine losartan 50 mg oral tablet 1 tab(s) orally 2 times a [id number]-Feb-2021 AM Losartan Tablet (COZAAR)DOSE = 50 mg Oral Dailylosartan 50 mg oral tablet continued as the inpatient order Losartan magnesium oxide 400 mg (240 mg elemental magnesium) oral tablet 1 tab(s) orally once a [id number]-Ayw-3758 PM Magnesium Oxide Tablet (Mag-Ox)DOSE = 400 [...] (SENOKOT)DOSE = 2 tablet(s) Oral Daily Normal [facility] Patient Profile - Adult v2on 02-08-2021 Patient Profile - Adult v2 Profile: Initial Info: How to be AddressedPeggi Spoken Language PreferredEnglish Stated Reason for AdmissionBrain bleed Patient Belongingsremains with patient Arrived Fromhospital Medications Brought to Hospitalyes Medication Dispositionbedside Are you currently using the Personal Electronic Health Record or [facility] Wants Family/Rep Notified of Admissionno Notify PCPnotify PCP Informed of Patient Visiting Rightsyes General Health: Weight in kg60.9 kilogram(s) Weight in wjy038.2 pound(s) Weight Methodactual (measured) Scale Typebed Height [...] Information Last Updated: 08-Feb-2021 00:47 by Maya Sanz) Normal [facility] RENAL FUNCTION PANELon 02-08 Albumin [Mass/Vol] 3.9 g/dL Normal 3.4 - 5.0 [facility] Comment on above: Performed By: #### R ENAL #### [facility] [address] [place] [address] Anion gap [Moles/Vol] 14 mmol/L Normal 10 - 20 [facility] Comment on above: Performed By: #### R ENAL #### [facility] [address] [place] [address] Calcium [Mass/Vol] 9.2 mg/dL Normal 8.6 - 10.6 [facility] Comment on above: Performed By: #### R ENAL #### [facility] [address] [place] [address] Chloride [Moles/Vol] 108 mmol/L High 98 - 107 [facility] Comment on above: Performed By: #### R ENAL #### [facility] [address] [place] [address] Creatinine [Mass/Vol] 0.92 mg/dL Normal 0.50 - 1.05 [facility] Comment on above: Performed By: #### R ENAL #### [facility] [address] [place] [address] GFR- AM. >60 Normal >60 [facility] Comment on above: Result Comment: CALC ULATIONS OF ESTIMATED GFR ARE PERFORMED USING THE MDRD STUDY EQUATION FOR THE IDMS-TRACEABLE CREATININE METHODS. CLIN CHEM 2007;53:766-72 Performed By: #### R ENAL #### [facility] [address] [place] [address] GFR-NON AM. >60 Normal >60 [facility] Comment on above: Performed By: #### R ENAL #### [facility] [address] [place] [address] Glucose [Mass/Vol] 86 mg/dL Normal 74 - 99 [facility] Comment on above: Performed By: #### R ENAL #### [facility] [address] [place] [address] HCO3 (Bld) [Moles/Vol] 23 mmol/L Normal 21 - 32 [facility] Comment on above: Performed By: #### R ENAL #### [facility] [address] [place] [address] Phosphate [Mass/Vol] 4.0 mg/dL Normal 2.5 - 4.9 [facility] Comment on above: Result Comment: The performance characteristics of phosphorus testing in heparinized plasma have been validated by the individual laboratory site where testing is performed. Testing on heparinized plasma is not approved by the FDA; however, such approval is not necessary. Performed By: #### R ENAL #### [facility] [address] [place] [address] Potassium [Moles/Vol] 4.2 mmol/L Normal 3.5 - 5.3 [facility] Comment on above: Performed By: #### R ENAL #### [facility] [address] [place] [address] Sodium [Moles/Vol] 141 mmol/L Normal 136 - 145 [facility] Comment on above: Performed By: #### R ENAL #### [facility] [address] [place] [address] Urea nitrogen [Mass/Vol] 14 mg/dL Normal 6 - 23 [facility] Comment on above: Performed By: #### R ENAL #### [facility] [address] [place] [address] Renal Function Panelon 02-08 Albumin BCP dye [Mass/Vol] 3.9 g/dL 3.4 - 5.0 [facility] Work Phone: Anion gap [Moles/Vol] 14 mmol/L 10 - 20 [facility] Work Phone: Calcium [Mass/Vol] 9.2 mg/dL 8.6 - 10.6 MG-[facility]ash [facility] Work Phone: Chloride [Moles/Vol] 108 mmol/L above high threshold 98 - 107 [facility] Work Phone: CO2 [Moles/Vol] 23 mmol/L 21 - 32 [facility]-Neuros urge [facility] Work Phone: Creatinine [Mass/Vol] 0.92 mg/dL See Below [facility] Work Phone: Comment on above: Reference Range: 0.5 0 - 1.05 Glucose [Mass/Vol] 86 mg/dL 74 - 99 MG-Arash rosurge [facility] Work Phone: Phosphate [Mass/Vol] 4.0 mg/dL 2.5 - 4.9 MG-N eurosurge [facility] Work Phone: Comment on above: The performance wilson acteristics of phosphorus testing in heparinized plasma have been validated by the individual laboratory site where testing is performed. Testing on heparinized plasma is not approved by the FDA; however, such approval is not necessary. Potassium [Moles/Vol] 4.2 mmol/L 3.5 - 5.3 MG-Neurosurge [facility] Work Phone: Sodium [Moles/Vol] 141 mmol/L 136 - 145 MG-Arash rosurge [facility] Work Phone: Urea nitrogen [Mass/Vol] 14 mg/dL 6 - 23 MG-Neurosurge [facility] Work Phone: Renal Function Panel >60 >60 MG-N eurosurge [facility] Work Phone: Comment on above: CALCULATIONS OF TASHIA MATED GFR ARE PERFORMED USING THE MDRD STUDY EQUATION FOR THE IDMS-TRACEABLE CREATININE METHODS. CLIN CHEM 2007;53:766-72 URINALYSISon 02-08-2021 Appearance (U) CLEAR Normal CLEAR [facility] Comment on above: Performed By: #### U A ####[id number] [place] [address] Bilirubin Ql (U) Negative Normal NEGATIVE [facility] Comment on above: Performed By: #### U A ####[id number] [place] [address] Color (U) COLORLESS Normal STRAW,YELLO W [facility] Comment on above: Performed By: #### U A ####[id number] [place] [address] Glucose Ql (U) Negative Normal NEGATIVE [facility] Comment on above: Performed By: #### U A ####[id number] [place] [address] Hemoglobin Ql (U) Negative Normal NEGATIVE [facility] Comment on above: Performed By: #### U A ####[id number] [place] [address] Ketones Ql (U) Negative Normal NEGATIVE [facility] Comment on above: Performed By: #### U A ####[id number] [place] [address] Leukocyte esterase Test strip Ql (U) Negative Normal NEGATIVE [facility] Comment on above: Performed By: #### U A ####[id number] [place] [address] Nitrite Ql (U) Negative Normal NEGATIVE [facility] Comment on above: Performed By: #### U A ####[id number] [place] [address] pH (U) 8.0 [pH] Normal 5.0 - 8.0 [facility] Comment on above: Performed By: #### U A ####[id number] [place] [address] Protein Ql (U) Negative Normal NEGATIVE [facility] Comment on above: Performed By: #### U A ####[id number] [place] [address] Specific gravity (U) [Rel density] 1.006 Normal 1.005 - 1.035 [facility] Comment on above: Performed By: #### U A ####[id number] [place] [address] Urobilinogen (U) [Mass/Vol] mg/dL Normal 0.0 - 1.9 [facility] Comment on above: Performed By: #### U A ####[id number] [place] [address] Coronavirus 2019 RNA by PCR, Screening Asymptomticon 02-07-2021 Coronavirus 2019 RNA by PCR, Screening Asymptomtic Not detected Normal See Below [facility]Neuro[facility] Work Phone: Comment on above: SOURCE: Nasal, [...] this test method. Fact sheet for providers: www.fda.gov/media/825524/downloadFact sheet for patients: www.fda.gov/media/992937/downloadThis test has received FDA Emergency Use Authorization (EUA) and has been verified by [facility] ([facility]). This test is only authorized for the duration of time that circumstances exist to justify the authorization of the emergency use of in vitro diagnostic tests for the detection of SARS-CoV-2 virus and/or diagnosis of COVID-19 infection under section 564(b)(1) of the Act, 21 U.S.C. 360bbb-3(b)(1), unless the authorization is terminated or revoked sooner. [facility] is certified under CLIA-88 as qualified to perform high complexity testing. Testing is performed in the [facility] laboratories located at [address] [place] [address]. No Panel Informationon 02-07 [email or web address] [email or web address] ?RetrieveTestByDateTime?P bxxnteWH=[id number]&Date=2 06-15-2021&Time=20%3a17%3a 49%3a00&TestType=ECG&Site =1&OutputType=PDF&Ext=PDF [facility] Work Phone: Sinus bradycardia MG-Neur osurge [facility] Work Phone: Abnormal [facility] Work Phone: [phone] [facility] Work Phone: [phone] [facility] Work Phone: [phone] 1 [facility] Work Phone: [phone] [facility] Work Phone: [phone] 1 [facility] Work Phone: [phone] [facility] Work Phone: [phone] 1 [facility] Work Phone: [phone] 1 [facility] Work Phone: [phone] 1 [facility] Work Phone: [phone] 1 [facility] Work Phone: [phone] 1 [facility] Work Phone: [phone] 1 [facility] Work Phone: [phone] 1 [facility] Work Phone: [phone] 1 [facility] Work Phone: [phone] Urinalysison 02-07-2021 Color (U) COLORLESS See Below [facility] Work Phone: [phone] Comment on above: Reference Range: STR AW,YELLOW Glucose Ql (U) Negative NEGATIVE [facility]su [facility] Work Phone: Ketones Ql (U) Negative NEGATIVE [facility]su [facility] Work Phone: [phone] Leukocyte esterase Test strip Ql (U) Negative NEGATIVE [facility] Work Phone: pH (U) 8.0 [pH] 5.0 - 8.0 [facility] Work Phone: Protein (U) [Mass/Vol] Negative NEGATIVE [facility] Work Phone: RBC (U) [#/Vol] Negative NEGATIVE [facility]-Neuros urge [facility] Work Phone: Specific gravity (U) [Rel density] 1.006 1 See Below [facility] Work Phone: Comment on above: Reference Range: 1.0 05 - 1.035 Urinalysis Negative NEGATIVE [facility] Work Phone: Urinalysis <2.0 0.0 - 1.9 [facility] Work Phone: Urinalysis CLEAR CLEAR [facility] Work Phone: APTTon 01-28-2019 aPTT Coag time (Bld) 26.1 s Normal 25.0-35.0 [facility] Comment on above: Order Comment: No: D [...] THIS PURPOSE. Performed By: #### 5 6101, [id number] #### [facility] [address] BASIC METABOLIC PANELon 01-10 Calcium mass conc 9.0 mg/dL Normal 8.6-10.3 [facility] Comment on above: Order Comment: No: D o not add to previous draw Performed By: #### 3 5200, 63439, 96145 #### [facility] [address] [place] [address], [facility] Chloride molar conc 107 mmol/L Normal 98-107 [facility] Comment on above: Order Comment: No: D o not add to previous draw Performed By: #### 3 5200, 88889, 30803 #### [facility] [address] [place] [address], [place] CO2 molar conc 22 mmol/L Normal 21-31 [facility] Comment on above: Order Comment: No: D o not add to previous draw Performed By: #### 3 5200, 62427, 66540 #### [facility] [address] [place] [address], [place] Creatinine mass conc 1.33 mg/dL High 0.60-1.20 [facility] Comment on above: Order Comment: No: D o not add to previous draw Performed By: #### 3 5200, 62145, 73141 #### [facility] [address] [place] [address], [place] GFR/1.73 sq M predicted among blacks MDRD vol rate/area (S/P/Bld) 48 ml/min/1.73sq m Abnormal >60 [facility] Comment on above: Order Comment: No: D o not add to previous draw Performed By: #### 3 5200, 79318, 68935 #### [facility] [address] [place] [address], [place] GFR/1.73 sq M predicted among non-blacks MDRD vol rate/area (S/P/Bld) 40 ml/min/1.73sq m Abnormal >60 [facility] Comment on above: Order Comment: No: D o not add to previous draw Performed By: #### 3 5200, 38043, 63456 #### [facility] [address] [place] [address], [place] Glucose mass conc 98 mg/dL Normal 70-100 [facility] Comment on above: Order Comment: No: D o not add to previous draw Performed By: #### 3 5200, 25022, 22888 #### [facility] [address] [place] [address], [place] Potassium molar conc 3.1 mmol/L Low 3.5-5.1 [facility] Comment on above: Order Comment: No: D o not add to previous draw Performed By: #### 3 5200, 28769, 79804 #### [facility] [address] Sodium molar conc 140 mmol/L Normal 136-145 [facility] Comment on above: Order Comment: No: D o not add to previous draw Performed By: #### 3 5200, 64184, 76434 #### [facility] [address] Urea nitrogen mass conc 21 mg/dL Normal 7-25 [facility] Comment on above: Order Comment: No: D o not add to previous draw Performed By: #### 3 5200, 59101, 21095 #### [facility] [address] CBC W/DIFFon 01-28-2019 ABS BASOPHILS 0.1 10*3/uL Normal 0.0-0.2 [facility] Comment on above: Performed By: #### 5 0103 #### [facility] [address] [facility]. [address] ABS IMM GRANS 0.0 10*3/uL Normal 0.0-0.2 [facility] Comment on above: Performed By: #### 5 0103 #### [facility] [address] [facility]. [address] ABS NEUTROPHILS 5.2 10*3/uL Normal 1.6-7.6 [facility] Comment on above: Performed By: #### 5 0103 #### [facility] [address] [facility] [address] Basophils #/vol (Bld) 0.6 % Normal 0.0-1.0 [facility] Comment on above: Performed By: #### 5 0103 #### [facility] [address] [facility]. [address] Eosinophils #/vol (Bld) 0.2 10*3/uL Normal 0.0-0.5 [facility] Comment on above: Performed By: #### 5 0103 #### [facility] [address] [facility] [place] [place] [address], [facility] Eosinophils/100 WBC (Bld) 2.0 % Normal 0.0-6.0 [facility] Comment on above: Performed By: #### 5 0103 #### [facility] [address] Erythrocyte distribution width Ratio (RBC) 12.8 % Normal 11.5-15.0 [facility] Comment on above: Performed By: #### 5 0103 #### [facility] [address] Hematocrit Volume Fraction (Bld) 33.7 % Low 36.0-45.0 [facility] Comment on above: Performed By: #### 5 0103 #### [facility] [address] Hemoglobin mass conc (Bld) 11.6 g/dL Low 12.0-15.0 [facility] Comment on above: Performed By: #### 5 0103 #### [facility] [address] IMMATURE GRANS 0.1 % Normal 0.0-1.0 [facility] Comment on above: Performed By: #### 5 0103 #### [facility] [address] [place] [address], [facility] Lymphocytes #/vol (Bld) 2.5 10*3/uL Normal 1.2-4.0 [facility] Comment on above: Performed By: #### 5 3 #### [facility] [address] [place] [address], [facility] Lymphocytes/100 WBC (Bld) 28.9 % Normal 20.0-45.0 [facility] Comment on above: Performed By: #### 5 0103 #### [facility] [address] MCH Entitic mass (RBC) 30.0 pg Normal 27.0-33.0 [facility] Comment on above: Performed By: #### 5 0103 #### [facility] [address] [facility]. [address] MCHC mass conc (RBC) 34.4 g/dL Normal 32.0-35.0 [facility] Comment on above: Performed By: #### 5 0103 #### [facility] [address] MCV Entitic volume (RBC) 87.1 fL Normal 82.0-98.0 [facility] Comment on above: Performed By: #### 5 0103 #### [facility] [address] Monocytes #/vol (Bld) 0.6 10*3/uL Normal 0.1-1.0 [facility] Comment on above: Performed By: #### 5 0103 #### [facility] [address] MONOS 7.2 % Normal 5.0-12.0 [facility] Comment on above: Performed By: #### 5 3 #### [facility] [address] Neutrophils/100 WBC (Bld) 61.2 % Normal 40.0-72.0 [facility] Comment on above: Performed By: #### 5 3 #### [facility] [address] Nucleated RBC/100 WBC Ratio (Bld) 0 % Normal 0-0 [facility] Comment on above: Performed By: #### 5 0103 #### [facility] [address] [place] [address], [facility] PLAT CNT 193 10*3/uL Normal 150-400 [facility] Comment on above: Performed By: #### 5 0103 #### [facility] [address] [facility] [address] RBC #/vol (Bld) 3.87 10*6/uL Normal 3.80-5.00 [facility] Comment on above: Performed By: #### 5 0103 #### [facility] [address] [place] [address], [facility] WBC #/vol (Bld) 8.49 10*3/uL Normal 4.00-10.60 [facility] Comment on above: Performed By: #### 5 0103 #### [facility] [address] MAGNESIUM BLOODon 01-28-2019 Magnesium mass conc 1.9 mg/dL Normal 1.9-2.7 [facility] Comment on above: Order Comment: No: D o not add to previous draw Performed By: #### 3 5200, 49110, 14312 #### [facility] [address] PROTHROMBIN TIMEon 9 INR Coag RelTime (PPP) 1.11 {INR} Normal 0.91-1.16 [facility] Comment on above: Order Comment: No: D [...] CHEST 1995;[id number]. Performed By: #### 5 6101, 26108 #### [facility] [address] [employer] Prothrombin time (PT) Coag time (PPP) 14.3 s Normal 12.3-14.8 [facility] Comment on above: Order Comment: No: D o not add to previous draw Result Comment: ALL RESULTS MUST BE INTERPRETED WITH RESPECT TO BLOOD DRAWING ARTIFACT OR DILUTION ERROR OF ANTICOAGULANT AT THE TIME OF SAMPLING. Performed By: #### 5 6101, 38589 #### [facility] [address] [facility] [address] TROPONIN-Ion 01-28-2019 Troponin I.cardiac mass conc 0.01 ng/mL Normal 0.00-0.04 [facility] Comment on above: Order Comment: No: D o not add to previous draw Result Comment: REFE RENCE RANGES: 0.00 - 0.04 ng/ml NORMAL 0.05 - 0.50 ng/ml INDETERMINATE > 0.50 ng/ml CONSISTENT WITH AN M.I. Performed By: #### 3 5200 #### [facility] [address] [place] [address], [facility] Troponin I.cardiac mass conc 0.01 ng/mL Normal 0.00-0.04 [facility] Comment on above: Order Comment: No: D o not add to previous draw Result Comment: REFE RENCE RANGES: 0.00 - 0.04 ng/ml NORMAL 0.05 - 0.50 ng/ml INDETERMINATE > 0.50 ng/ml CONSISTENT WITH AN M.I. Performed By: #### 3 5200 #### [facility] [address] [facility]. [address] Troponin I.cardiac mass conc 0.01 ng/mL Normal 0.00-0.04 [facility] Comment on above: Order Comment: No: D o not add to previous draw Result Comment: REFE RENCE RANGES: 0.00 - 0.04 ng/ml NORMAL 0.05 - 0.50 ng/ml INDETERMINATE > 0.50 ng/ml CONSISTENT WITH AN M.I. Performed By: #### 3 5200, 99592, 11965 #### [facility] [address] Cardiovascular Lab Reporton 10-20-2018 Cardiovascular Lab Report [facility] Patient Name: Viviana [facility] MR #: [id number] Physician: Chad Barillas Department of M.D. Medicine Service Date: 10/19/2018 Division of Birthdate: 1950 Cardiology Room #: 0 Adult Cardiovascular Services [facility] [address] [address] Cardiovascular Laboratory Report FINAL IMPRESSIONS: 1. Moderate [...] 4. Follow up with me in the [facility] in 3-4 weeks. 5. Follow up with Dr. Miller as scheduled. PROCEDURES: Limited femoral angiography, bilateral selective coronary angiography, intracoronary nitroglycerin administration, deployment of a 6-Icelandic VIP Angio-Seal device. METHODS: After risks, benefits, and alternatives were explained, written informed consent was obtained. The patient was prepped and draped in usual sterile fashion over the right groin. Using 1% lidocaine solution, local infiltration anesthesia was achieved. Using a modified Seldinger technique, access to the right common femoral artery was obtained. A 6-Icelandic 11 cm sheath was inserted without difficulty. Baseline femoral angiography was performed. Bilateral selective coronary angiography was then performed using JL4 and JR4 catheters. Dampening of pressures was noted. Subsequently, the right coronary was engaged using a 6-Icelandic guide catheter and intracoronary nitroglycerin was administered. Repeat angiography showed resolution of the coronary spasm and normalization of the pressure tracings. At this point, it was elected to conclude the procedure. A 6-Icelandic VIP Angio-Seal device was deployed per protocol, [...] Chad Barillas M.D. Date Dict: 10/19/2018/10:21 Selena Bairllas M.D. Date Trans: 10/20/2018 01:31 Lindsay/mmo [id number] cc: Lon Miller M.D. [address] [place] [address] Normal [facility] BASIC METABOLIC PANELon Calcium mass conc 9.2 mg/dL Normal 8.6-10.3 [facility] Comment on above: Performed By: #### 0 0071 #### [facility] [address] [place] [address], [facility] Chloride molar conc 104 mmol/L Normal 98-107 [facility] Comment on above: Performed By: #### 0 0071 #### [facility] [address] [place] [address], [facility] CO2 molar conc 24 mmol/L Normal 21-31 [facility] Comment on above: Performed By: #### 0 0071 #### [facility] [address] [place] [address], [facility] Creatinine mass conc 1.13 mg/dL Normal 0.60-1.20 [facility] Comment on above: Performed By: #### 0 0071 #### [facility] [address] [place] [address], [facility] GFR/1.73 sq M predicted among blacks MDRD vol rate/area (S/P/Bld) 59 ml/min/1.73sq m Abnormal >60 [facility] Comment on above: Performed By: #### 0 0071 #### [facility] [address] [place] [address], [place] GFR/1.73 sq M predicted among non-blacks MDRD vol rate/area (S/P/Bld) 48 ml/min/1.73sq m Abnormal >60 [facility] Comment on above: Performed By: #### 0 0071 #### [facility] [address] [place] [address], [place] Glucose mass conc 84 mg/dL Normal 70-100 [facility] Comment on above: Performed By: #### 0 0071 #### [facility] [address] [place] [address], [facility] Potassium molar conc 3.1 mmol/L Low 3.5-5.1 [facility] Comment on above: Performed By: #### 0 0071 #### [facility] [address] [place] [address], [facility] Sodium molar conc 141 mmol/L Normal 136-145 [facility] Comment on above: Performed By: #### 0 0071 #### [facility] [address] [place] [address], [facility] Urea nitrogen mass conc 29 mg/dL High 7-25 [facility] Comment on above: Performed By: #### 0 0071 #### [facility] [address] [place], [place] [address] Vital Signs Date Time Vital Sign Value Performing Clinician Facility 10-20-2024 10:51-0500 Body height 172.72 cm Teresita Ortega APRN Work Phone: [facility] 10-20-2024 10:51-0500 Body mass index (BMI) [Ratio] 17.8 kg/m2 Teresita Jordan NEGRETEN Work Phone: [facility] 10-20-2024 10:51-0500 Body temperature 97.5 [degF] Teresita Jordan NEGRETEN Work Phone: [facility] 10-20-2024 10:51-0500 Body weight 53.07 kg Teresita Jordan NEGRETEN Work Phone: [facility] 10-20-2024 10:51-0500 Diastolic blood pressure 88 mm[Hg] Teresita Jordan NEGRETEN Work Phone: [facility] 10-20-2024 10:51-0500 Heart rate 63 /min Teresita Jordan NEGRETEN Work Phone: [facility] 10-20-2024 10:51-0500 SaO2% (BldA) [Mass fraction] 97 % Teresita Ortega PHARMACIST ASSISTANT Work Phone: [facility] 10-20-2024 10:51-0500 Systolic blood pressure 152 mm[Hg] Teresita Ortega PHARMACIST ASSISTANT Work Phone: [facility] 10-04-2024 10:19-0500 Body height 172.7 cm Stella Andrade MD Work Phone: [facility] 10-04-2024 10:19-0500 Diastolic blood pressure 87 mm[Hg] Stella Andrade MD Work Phone: [facility] 10-04-2024 10:19-0500 Systolic blood pressure 131 mm[Hg] Stella Andrade MD Work Phone: [facility] 09-27-2024 11:02-0500 Body height 172.72 cm Teresita Ortega PHARMACIST ASSISTANT Work Phone: [facility] 09-27-2024 11:02-0500 Body mass index (BMI) [Ratio] 17.4 kg/m2 Teresita Ortega PHARMACIST ASSISTANT Work Phone: [facility] 09-27-2024 11:02-0500 Body weight 51.82 kg Teresita Ortega PHARMACIST ASSISTANT Work Phone: [facility] 09-27-2024 11:02-0500 Diastolic blood pressure 81 mm[Hg] Teresita Ortega PHARMACIST ASSISTANT Work Phone: [facility] 09-27-2024 11:02-0500 Heart rate 67 /min Teresita Ortega PHARMACIST ASSISTANT Work Phone: [facility] 09-27-2024 11:02-0500 Systolic blood pressure 130 mm[Hg] Teresita Ortega PHARMACIST ASSISTANT Work Phone: [facility] 2024 12:26-0500 Body height 172.72 cm Teresita Ortega PHARMACIST ASSISTANT Work Phone: [facility] 2024 12:26-0500 Body mass index (BMI) [Ratio] 17.4 kg/m2 Teresita Ortega PHARMACIST ASSISTANT Work Phone: [facility] 2024 12:26-0500 Body temperature 97.7 [degF] Teresita Ortega PHARMACIST ASSISTANT Work Phone: [facility] 2024 12:26-0500 Body weight 52.16 kg Teresita Ortega PHARMACIST ASSISTANT Work Phone: [facility] 2024 12:26-0500 Diastolic blood pressure 79 mm[Hg] Teresita Ortega PHARMACIST ASSISTANT Work Phone: [facility] 2024 12:26-0500 Heart rate 64 /min Teresita Ortega PHARMACIST ASSISTANT Work Phone: [facility] 2024 12:26-0500 Respiratory rate 18 /min Teresita Ortega PHARMACIST ASSISTANT Work Phone: [facility] 2024 12:26-0500 SaO2% (BldA) [Mass fraction] 99 % Teresita Ortega PHARMACIST ASSISTANT Work Phone: [facility] 2024 12:26-0500 Systolic blood pressure 132 mm[Hg] Teresita Ortega PHARMACIST ASSISTANT Work Phone: [facility] 09-14-2024 14:21-0500 Body height 172.72 cm Teresita Ortega PHARMACIST ASSISTANT Work Phone: [facility] 09-14-2024 14:21-0500 Body mass index (BMI) [Ratio] 18.3 kg/m2 Teresita Ortega PHARMACIST ASSISTANT Work Phone: [facility] 09-14-2024 14:21-0500 Body temperature 97.1 [degF] Teresita Ortega PHARMACIST ASSISTANT Work Phone: [facility] 09-14-2024 14:21-0500 Body weight 54.54 kg Teresita Ortega PHARMACIST ASSISTANT Work Phone: [facility] 09-14-2024 14:21-0500 Diastolic blood pressure 80 mm[Hg] Teresita Ortega PHARMACIST ASSISTANT Work Phone: [facility] 09-14-2024 14:21-0500 Heart rate 67 /min Teresita Ortega PHARMACIST ASSISTANT Work Phone: [facility] 09-14-2024 14:21-0500 Respiratory rate 16 /min Teresita Ortega PHARMACIST ASSISTANT Work Phone: [facility] 09-14-2024 14:21-0500 SaO2% (BldA) [Mass fraction] 96 % Teresita Jordan PHARMACIST ASSISTANT Work Phone: [facility] 09-14-2024 14:21-0500 Systolic blood pressure 144 mm[Hg] Teresita Jordan PHARMACIST ASSISTANT Work Phone: [facility] 08-02-2024 16:18-0400 Body height 172.72 cm MD Lon Miller Work Phone: [facility] 08-02-2024 16:18-0400 Body mass index (BMI) [Ratio] 17.8 kg/m2 MD Lon Miller Work Phone: [facility] 08-02-2024 16:18-0400 Body temperature 97.2 [degF] MD Lon Miller Work Phone: [facility] 08-02-2024 16:18-0400 Body weight 53.24 kg MD Lon Miller Work Phone: [facility] 08-02-2024 16:18-0400 Diastolic blood pressure 86 mm[Hg] MD Lon Miller Work Phone: [facility] 08-02-2024 16:18-0400 Heart rate 66 /min MD Lon Miller Work Phone: [facility] 08-02-2024 16:18-0400 Respiratory rate 18 /min MD Lon Miller Work Phone: [facility] 08-02-2024 16:18-0400 SaO2% (BldA) [Mass fraction] 99 % MD Lon Miller Work Phone: [facility] 08-02-2024 16:18-0400 Systolic blood pressure 130 mm[Hg] MD Lon Miller Work Phone: [facility] 07-12-2024 08:58-0400 Diastolic blood pressure 82 mm[Hg] Mohamad Mouchli [facility] 07-12-2024 08:58-0400 Heart rate 64 /min Mohamad Mouchli [facility] 07-12-2024 08:58-0400 Mean blood pressure 101 mm[Hg] Mohamad Mouchli [facility] 07-12-2024 08:58-0400 Respiratory rate 11 /min Mohamad Mouchli [facility] 07-12-2024 08:58-0400 SaO2% (BldA) [Mass fraction] 100 % Mohamad Mouchli [facility] 07-12-2024 08:58-0400 Systolic blood pressure 140 mm[Hg] Mohamad Mouchli [facility] 07-12-2024 08:50-0400 Diastolic blood pressure 78 mm[Hg] Mohamad Mouchli [facility] 07-12-2024 08:50-0400 Heart rate 70 /min Mohamad Mouchli [facility] 07-12-2024 08:50-0400 Mean blood pressure 94 mm[Hg] Mohamad Mouchli [facility] 07-12-2024 08:50-0400 Respiratory rate 14 /min Mohamad Mouchli [facility] 07-12-2024 08:50-0400 SaO2% (BldA) [Mass fraction] 100 % Mohamad Mouchli [facility] 07-12-2024 08:50-0400 Systolic blood pressure 125 mm[Hg] Mohamad Mouchli [facility] 07-12-2024 08:45-0400 Diastolic blood pressure 65 mm[Hg] Mohamad Mouchli [facility] 07-12-2024 08:45-0400 Heart rate 69 /min Mohamad Mouchli [facility] 07-12-2024 08:45-0400 Mean blood pressure 83 mm[Hg] Mohamad Mouchli [facility] 07-12-2024 08:45-0400 Respiratory rate 18 /min Mohamad Mouchli [facility] 07-12-2024 08:45-0400 SaO2% (BldA) [Mass fraction] 99 % Mohamad Mouchli [facility] 07-12-2024 08:45-0400 Systolic blood pressure 118 mm[Hg] Mohamad Mouchli [facility] 07-12-2024 08:43-0400 Body temperature 97.88 [degF] Mohamad Mouchli [facility] 07-12-2024 08:40-0400 Respiratory rate 20 /min Mohamad Mouchli [facility] 07-12-2024 08:35-0400 Respiratory rate 14 /min Mohamad Mouchli [facility] 07-12-2024 08:30-0400 Respiratory rate 16 /min Mohamad Mouchli [facility] 07-12-2024 07:20-0400 Blood Pressure Location Sharad Asencio [facility] 07-12-2024 07:20-0400 Body temperature 96.8 [degF] Wernerd Chalouchli [facility] 06-30-2024 10:08-0400 Blood Pressure Location Wernerd Misbahli [facility] 06-30-2024 10:08-0400 Diastolic blood pressure 79 mm[Hg] Wernerd Misbahli [facility] 06-30-2024 10:08-0400 Heart rate 52 /min Sharad Crawleyli [facility] 06-30-2024 10:08-0400 Systolic blood pressure 164 mm[Hg] Wernerd Chalouchli [facility] 06-28-2024 12:32-0400 Body height 172.72 cm MD Lon Miller Work Phone: [facility] 06-28-2024 12:32-0400 Body mass index (BMI) [Ratio] 18.1 kg/m2 MD Lon Miller Work Phone: [facility] 06-28-2024 12:32-0400 Body temperature 97.3 [degF] MD Lon Miller Work Phone: [facility] 06-28-2024 12:32-0400 Body weight 54.09 kg MD Lon Miller Work Phone: [facility] 06-28-2024 12:32-0400 Diastolic blood pressure 91 mm[Hg] MD Lon Miller Work Phone: [facility] 06-28-2024 12:32-0400 Heart rate 62 /min MD Lon Miller Work Phone: [facility] 06-28-2024 12:32-0400 Respiratory rate 16 /min MD Lon Miller Work Phone: [facility] 06-28-2024 12:32-0400 SaO2% (BldA) [Mass fraction] 96 % MD Lon Miller Work Phone: [facility] 06-28-2024 12:32-0400 Systolic blood pressure 160 mm[Hg] MD Lon Miller Work Phone: [facility] 06-08-2024 17:13-0400 Body height 172.72 cm MD Lon Miller Work Phone: [facility] 06-08-2024 17:13-0400 Body mass index (BMI) [Ratio] 18.1 kg/m2 MD Lon Miller Work Phone: [facility] 06-08-2024 17:13-0400 Body temperature 97.8 [degF] MD Lon Miller Work Phone: [facility] 06-08-2024 17:13-0400 Body weight 54 kg MD Lon Miller Work Phone: [facility] 06-08-2024 17:13-0400 Diastolic blood pressure 73 mm[Hg] MD Lon Miller Work Phone: [facility] 06-08-2024 17:13-0400 Heart rate 61 /min MD Lon Miller Work Phone: [facility] 06-08-2024 17:13-0400 Respiratory rate 18 /min MD Lon Miller Work Phone: [facility] 06-08-2024 17:13-0400 SaO2% (BldA) [Mass fraction] 98 % MD Lon Miller Work Phone: [facility] 06-08-2024 17:13-0400 Systolic blood pressure 110 mm[Hg] MD Lon Miller Work Phone: [facility] 06-07-2024 10:55-0400 Body height 172.72 cm MD Lon Miller Work Phone: [facility] 06-07-2024 10:55-0400 Body mass index (BMI) [Ratio] 18.1 kg/m2 MD Lon Miller Work Phone: [facility] 06-07-2024 10:55-0400 Body weight 53.97 kg MD Lon Miller Work Phone: [facility] 06-07-2024 10:55-0400 Diastolic blood pressure 81 mm[Hg] MD Lon Miller Work Phone: [facility] 06-07-2024 10:55-0400 Heart rate 66 /min MD Lon Miller Work Phone: [facility] 06-07-2024 10:55-0400 Systolic blood pressure 134 mm[Hg] MD Lon Miller Work Phone: [facility] 05-21-2024 13:37-0400 Body height 172.72 cm [facility] 05-21-2024 13:37-0400 Body mass index (BMI) [Ratio] 18.2 kg/m2 [facility] 05-21-2024 13:37-0400 Body temperature 98.4 [degF] [facility] 05-21-2024 13:37-0400 Body weight 54.43 kg [facility] 05-21-2024 13:37-0400 Diastolic blood pressure 79 mm[Hg] [facility] 05-21-2024 13:37-0400 Heart rate 62 /min [facility] 05-21-2024 13:37-0400 Respiratory rate 16 /min [facility] 05-21-2024 13:37-0400 SaO2% (BldA) [Mass fraction] 98 % [facility] 05-21-2024 13:37-0400 Systolic blood pressure 122 mm[Hg] [facility] 04-11-2024 14:18-0400 Body height 172.72 cm [facility] 04-11-2024 14:18-0400 Body mass index (BMI) [Ratio] 18.1 kg/m2 [facility] 04-11-2024 14:18-0400 Body weight 53.97 kg [facility] 04-11-2024 14:18-0400 Diastolic blood pressure 65 mm[Hg] [facility] 04-11-2024 14:18-0400 Heart rate 69 /min [facility] 04-11-2024 14:18-0400 Systolic blood pressure 98 mm[Hg] [facility] 04-04-2024 10:28-0400 Body height 172.72 cm [facility] 04-04-2024 10:28-0400 Body mass index (BMI) [Ratio] 18.2 kg/m2 [facility] 04-04-2024 10:28-0400 Body temperature 97.3 [degF] [facility] 04-04-2024 10:28-0400 Body weight 54.43 kg [facility] 04-04-2024 10:28-0400 Diastolic blood pressure 71 mm[Hg] [facility] 04-04-2024 10:28-0400 Heart rate 60 /min [facility] 04-04-2024 10:28-0400 Respiratory rate 18 /min [facility] 04-04-2024 10:28-0400 SaO2% (BldA) [Mass fraction] 98 % [facility] 04-04-2024 10:28-0400 Systolic blood pressure 110 mm[Hg] [facility] 03-08-2024 10:21-0400 Body height 172.72 cm [facility] 03-08-2024 10:21-0400 Body mass index (BMI) [Ratio] 18.1 kg/m2 [facility] 03-08-2024 10:21-0400 Body temperature 96.5 [degF] [facility] 03-08-2024 10:21-0400 Body weight 54.2 kg [facility] 03-08-2024 10:21-0400 Diastolic blood pressure 88 mm[Hg] [facility] 03-08-2024 10:21-0400 Heart rate 74 /min [facility] 03-08-2024 10:21-0400 Respiratory rate 16 /min [facility] 03-08-2024 10:21-0400 SaO2% (BldA) [Mass fraction] 100 % [facility] 03-08-2024 10:21-0400 Systolic blood pressure 134 mm[Hg] [facility] 02-18-2024 13:03-0400 Body height 172.7 cm Olga Leni PHARMACIST ASSISTANT-[employer]AME H[employer]ENER Work Phone: [facility] 02-18-2024 13:03-0400 Body mass index (BMI) [Ratio] 18.4 kg/m2 Olga Leni PHARMACIST ASSISTANT-FLAME HARDENER Work Phone: [facility] 02-18-2024 13:03-0400 Body temperature 96.3 [degF] Olga Leni PHARMACIST ASSISTANT-FLAME HARDENER Work Phone: [facility] 02-18-2024 13:03-0400 Body weight 54.88 kg Olga Leni PHARMACIST ASSISTANT-FLAME HARDENER Work Phone: [facility] 02-18-2024 13:03-0400 Diastolic blood pressure 82 mm[Hg] Olga Leni PHARMACIST ASSISTANT-FLAME HARDENER Work Phone: [facility] 02-18-2024 13:03-0400 Heart rate 67 /min Olga Leni PHARMACIST ASSISTANT-FLAME HARDENER Work Phone: [facility] 02-18-2024 13:03-0400 Respiratory rate 18 /min Olga Leni PHARMACIST ASSISTANT-FLAME HARDENER Work Phone: [facility] 02-18-2024 13:03-0400 Systolic blood pressure 148 mm[Hg] Olga Leni PHARMACIST ASSISTANT-FLAME HARDENER Work Phone: [facility] 02-04-2024 12:58-0400 Body height 172.72 cm [facility] 02-04-2024 12:58-0400 Body mass index (BMI) [Ratio] 18.2 kg/m2 [facility] 02-04-2024 12:58-0400 Body temperature 97.9 [degF] [facility] 02-04-2024 12:58-0400 Body weight 54.43 kg [facility] 02-04-2024 12:58-0400 Diastolic blood pressure 77 mm[Hg] [facility] 02-04-2024 12:58-0400 Heart rate 64 /min [facility] 02-04-2024 12:58-0400 Respiratory rate 16 /min [facility] 02-04-2024 12:58-0400 SaO2% (BldA) [Mass fraction] 99 % [facility] 02-04-2024 12:58-0400 Systolic blood pressure 128 mm[Hg] [facility] 01-22-2024 13:12-0400 Body height 172.72 cm [facility] 01-22-2024 13:12-0400 Body mass index (BMI) [Ratio] 18.3 kg/m2 [facility] 01-22-2024 13:12-0400 Body temperature 98.3 [degF] [facility] 01-22-2024 13:12-0400 Body weight 54.65 kg [facility] 01-22-2024 13:12-0400 Diastolic blood pressure 72 mm[Hg] [facility] 01-22-2024 13:12-0400 Heart rate 66 /min [facility] 01-22-2024 13:12-0400 Respiratory rate 18 /min [facility] 01-22-2024 13:12-0400 SaO2% (BldA) [Mass fraction] 96 % [facility] 01-22-2024 13:12-0400 Systolic blood pressure 118 mm[Hg] [facility] 12-24-2023 13:51-0400 Body height 172.72 cm [facility] 12-24-2023 13:51-0400 Body mass index (BMI) [Ratio] 18.3 kg/m2 [facility] 12-24-2023 13:51-0400 Body temperature 96.6 [degF] [facility] 12-24-2023 13:51-0400 Body weight 54.88 kg [facility] 12-24-2023 13:51-0400 Diastolic blood pressure 89 mm[Hg] [facility] 12-24-2023 13:51-0400 Heart rate 59 /min [facility] 12-24-2023 13:51-0400 Systolic blood pressure 162 mm[Hg] [facility] 12-17-2023 11:09-0500 Body height 172.72 cm [facility] 12-17-2023 11:09-0500 Body mass index (BMI) [Ratio] 18.4 kg/m2 [facility] 12-17-2023 11:09-0500 Body weight 55.05 kg [facility] 12-17-2023 11:09-0500 Diastolic blood pressure 76 mm[Hg] [facility] 12-17-2023 11:09-0500 Heart rate 68 /min [facility] 12-17-2023 11:09-0500 Systolic blood pressure 132 mm[Hg] [facility] 09-08-2023 10:36-0500 Blood Pressure Location [facility] 09-08-2023 10:36-0500 Body temperature 97.16 [degF] [facility] 09-08-2023 10:36-0500 Diastolic blood pressure 78 mm[Hg] [facility] 09-08-2023 10:36-0500 Heart rate 78 /min Flores L[facility] 09-08-2023 10:36-0500 Systolic blood pressure 118 mm[Hg] [facility] 08-18-2023 10:45-0500 Body height 172.72 cm Lon Miller Other [employer] Other 08-18-2023 10:45-0500 Body mass index (BMI) [Ratio] 18.58 kg/m2 Lon Miller Other [employer] Other 08-18-2023 10:45-0500 Body temperature 97.3 [degF] Lon Miller Other [employer] Other 08-18-2023 10:45-0500 Body weight 55.43 kg Lon Miller Other [employer] Other 08-18-2023 10:45-0500 Diastolic blood pressure 72 mm[Hg] Lon Miller Other [employer] Other 08-18-2023 10:45-0500 SaO2% (BldA) [Mass fraction] 99 % Lon Miller Other [employer] Other 08-18-2023 10:45-0500 Systolic blood pressure 110 mm[Hg] Lon Miller Other [employer] Other 08-11-2023 11:00-0400 Body height 172.72 cm Vladimir KangaDodarcie Other [employer] Other 08-11-2023 11:00-0400 Body mass index (BMI) [Ratio] 18.7 kg/m2 Art[employer] Other [employer] Other 08-11-2023 11:00-0400 Body temperature 97.4 [degF] Vladimir [employer] Other [employer] Other 08-11-2023 11:00-0400 Body weight 55.79 kg Vladimir Clifton Other [employer] Other 08-11-2023 11:00-0400 Diastolic blood pressure 70 mm[Hg] Vladimir Clifton Other [employer] Other 08-11-2023 11:00-0400 Respiratory rate 18 /min Vladimir Clifton Other [employer] Other 08-11-2023 11:00-0400 SaO2% (BldA) [Mass fraction] 99 % Vladimir Clifton Other [employer] Other 08-11-2023 11:00-0400 Systolic blood pressure 120 mm[Hg] Vladimir Clifton Other [employer] Other 07-20-2023 13:25-0400 Body height 172.72 cm Mallorie Guardado Other [employer] Other 07-20-2023 13:25-0400 Body mass index (BMI) [Ratio] 18.7 kg/m2 Mallorie Guardado Other [employer] Other 07-20-2023 13:25-0400 Body temperature 98.3 [degF] Mallorie Guardado Other [employer] Other 07-20-2023 13:25-0400 Body weight 55.79 kg Mallorie Guardado Other [employer] Other 07-20-2023 13:25-0400 Diastolic blood pressure 82 mm[Hg] Mallorie Guardado Other [employer] Other 07-20-2023 13:25-0400 Respiratory rate 17 /min Mallorie Guardado Other [employer] Other 07-20-2023 13:25-0400 SaO2% (BldA) [Mass fraction] 97 % Mallorie Guardado Other [employer] Other 07-20-2023 13:25-0400 Systolic blood pressure 110 mm[Hg] Mallorie Easleyley Other [employer] Other 07-14-2023 11:15-0400 Body height 172.72 cm Geneva Pauly Other [employer] Other 07-14-2023 11:15-0400 Body mass index (BMI) [Ratio] 18.85 kg/m2 Geneva Coats Other [employer] Other 07-14-2023 11:15-0400 Body temperature 97.3 [degF] Geneva Pauly Other [employer] Other 07-14-2023 11:15-0400 Body weight 56.25 kg Geneva Burgoswilla Other [employer] Other 07-14-2023 11:15-0400 Diastolic blood pressure 66 mm[Hg] Geneva Coats Other [employer] Other 07-14-2023 11:15-0400 SaO2% (BldA) [Mass fraction] 97 % Geneva Coats Other [employer] Other 07-14-2023 11:15-0400 Systolic blood pressure 108 mm[Hg] Geneva Coats Other [employer] Other 07-03-2023 11:30-0400 Body height 172.72 cm Mallorie Debby Other [employer] Other 07-03-2023 11:30-0400 Body mass index (BMI) [Ratio] 18.64 kg/m2 Mallorie Guardado Other [employer] Other 07-03-2023 11:30-0400 Body temperature 98.2 [degF] Mallorie Debby Other [employer] Other 07-03-2023 11:30-0400 Body weight 55.61 kg Mallorie Debby Other [employer] Other 07-03-2023 11:30-0400 Diastolic blood pressure 58 mm[Hg] Malloriehitesh Guardado Other [employer] Other 07-03-2023 11:30-0400 Respiratory rate 18 /min Mallorie Debby Other [employer] Other 07-03-2023 11:30-0400 SaO2% (BldA) [Mass fraction] 97 % Malloriehitesh Guardado Other [employer] Other 07-03-2023 11:30-0400 Systolic blood pressure 90 mm[Hg] Mallorie Guardado Other [employer] Other 06-23-2023 12:45-0400 Body height 172.72 cm Teresita Ortega Other [employer] Other 06-23-2023 12:45-0400 Body mass index (BMI) [Ratio] 18.64 kg/m2 Teresita Ortega Other [employer] Other 06-23-2023 12:45-0400 Body temperature 97.7 [degF] Teresita Ortega Other [employer] Other 06-23-2023 12:45-0400 Body weight 55.61 kg Teresita Ortega Other [employer] Other 06-23-2023 12:45-0400 Diastolic blood pressure 61 mm[Hg] Teresita Ortega Other [employer] Other 06-23-2023 12:45-0400 Respiratory rate 18 /min Teresita Ortega Other [employer] Other 06-23-2023 12:45-0400 SaO2% (BldA) [Mass fraction] 99 % Teresita Ortega Other [employer] Other 06-23-2023 12:45-0400 Systolic blood pressure 106 mm[Hg] Teresita Ortega Other [employer] Other 06-12-2023 12:25-0400 Body height 172.72 cm Lidia Agnes Other [employer] Other 06-12-2023 12:25-0400 Body mass index (BMI) [Ratio] 18.7 kg/m2 Lidia Agnes Other [employer] Other 06-12-2023 12:25-0400 Body temperature 98.1 [degF] Lidia Agnes Other [employer] Other 06-12-2023 12:25-0400 Body weight 55.79 kg Lidia Alarcon Other [employer] Other 06-12-2023 12:25-0400 Diastolic blood pressure 82 mm[Hg] Lidia Alarcon Other [employer] Other 06-12-2023 12:25-0400 Respiratory rate 18 /min iLdia Alarcon Other [employer] Other 06-12-2023 12:25-0400 SaO2% (BldA) [Mass fraction] 99 % Lidia Alarcon Other [employer] Other 06-12-2023 12:25-0400 Systolic blood pressure 135 mm[Hg] Lidia Alarcon Other [employer] Other 06-02-2023 11:45-0400 Body height 172.72 cm Mukesh Fam Other [employer] Other 06-02-2023 11:45-0400 Body mass index (BMI) [Ratio] 18.85 kg/m2 Mukesh Fam Other [employer] Other 06-02-2023 11:45-0400 Body temperature 97.6 [degF] Mukesh Fam Other [employer] Other 06-02-2023 11:45-0400 Body weight 56.25 kg Mukesh Fam Other [employer] Other 06-02-2023 11:45-0400 Diastolic blood pressure 66 mm[Hg] Mukesh Fam Other [employer] Other 06-02-2023 11:45-0400 SaO2% (BldA) [Mass fraction] 97 % Mukesh Fam Other [employer] Other 06-02-2023 11:45-0400 Systolic blood pressure 110 mm[Hg] Mukesh Fam Other [employer] Other 05-26-2023 11:15-0400 Body height 172.72 cm Lon Miller Other [employer] Other 05-26-2023 11:15-0400 Body mass index (BMI) [Ratio] 18.85 kg/m2 Lon Miller Other [employer] Other 05-26-2023 11:15-0400 Body weight 56.25 kg Lon Miller Other [employer] Other 05-26-2023 11:15-0400 Diastolic blood pressure 71 mm[Hg] Lon Miller Other [employer] Other 05-26-2023 11:15-0400 Systolic blood pressure 118 mm[Hg] Lon Miller Other [employer] Other 04-29-2023 14:20-0400 Body height 172.72 cm Mallorie Guardado Other [employer] Other 04-29-2023 14:20-0400 Body mass index (BMI) [Ratio] 18.85 kg/m2 Mallorie Guardado Other [employer] Other 04-29-2023 14:20-0400 Body temperature 98.3 [degF] Mallorie Guardado Other [employer] Other 04-29-2023 14:20-0400 Body weight 56.25 kg Mallorie Debby Other [employer] Other 04-29-2023 14:20-0400 Diastolic blood pressure 77 mm[Hg] Mallorie Debby Other [employer] Other 04-29-2023 14:20-0400 Respiratory rate 18 /min Mallorie Easleyley Other [employer] Other 04-29-2023 14:20-0400 SaO2% (BldA) [Mass fraction] 98 % Mallorie Debby Other [employer] Other 04-29-2023 14:20-0400 Systolic blood pressure 127 mm[Hg] Mallorie Guardado Other [employer] Other 04-17-2023 09:00-0400 Body height 172.72 cm Lon Miller Other [employer] Other 04-17-2023 09:00-0400 Body mass index (BMI) [Ratio] 18.91 kg/m2 Lon Miller Other [employer] Other 04-17-2023 09:00-0400 Body weight 56.43 kg Lon Miller Other [employer] Other 04-17-2023 09:00-0400 Diastolic blood pressure 81 mm[Hg] Lon Miller Other [employer] Other 04-17-2023 09:00-0400 Systolic blood pressure 134 mm[Hg] Lon Miller Other [employer] Other 03-17-2023 13:30-0400 Body height 172.72 cm Teresita Ortega Other [employer] Other 03-17-2023 13:30-0400 Body mass index (BMI) [Ratio] 19.1 kg/m2 Teresita Ortega Other [employer] Other 03-17-2023 13:30-0400 Body temperature 98.2 [degF] Teresita Ortega Other [employer] Other 03-17-2023 13:30-0400 Body weight 56.97 kg Teresita Ortega Other [employer] Other 03-17-2023 13:30-0400 Respiratory rate 18 /min Teresita Ortega Other [employer] Other 03-17-2023 13:30-0400 SaO2% (BldA) [Mass fraction] 97 % Teresita Ortega Other [employer] Other 02-04-2023 10:40-0400 Body height 172.72 cm Vladimir KangaDonikkiphilippe Other [employer] Other 02-04-2023 10:40-0400 Body mass index (BMI) [Ratio] 19.1 kg/m2 [employer]io [employer] Other [employer] Other 02-04-2023 10:40-0400 Body temperature 97.3 [degF] [employer] Other [employer] Other 02-04-2023 10:40-0400 Body weight 56.97 kg Azobdulio [employer] Other [employer] Other 02-04-2023 10:40-0400 Diastolic blood pressure 88 mm[Hg] Vladimir Clifton Other [employer] Other 02-04-2023 10:40-0400 Respiratory rate 18 /min Vladimir Clifton Other [employer] Other 02-04-2023 10:40-0400 SaO2% (BldA) [Mass fraction] 99 % Vladimir Clifton Other [employer] Other 02-04-2023 10:40-0400 Systolic blood pressure 149 mm[Hg] Vladimir Clifton Other [employer] Other 12-18-2022 14:15-0500 Body height 172.72 cm Lon Miller Other [employer] Other 12-18-2022 14:15-0500 Body mass index (BMI) [Ratio] 19 kg/m2 Lon Miller Other [employer] Other 12-18-2022 14:15-0500 Body weight 56.7 kg Lon Miller Other [employer] Other 12-18-2022 14:15-0500 Diastolic blood pressure 66 mm[Hg] Lon Miller Other [employer] Other 12-18-2022 14:15-0500 SaO2% (BldA) [Mass fraction] 99 % Lon Miller Other [employer] Other 12-18-2022 14:15-0500 Systolic blood pressure 120 mm[Hg] Lon Miller Other [employer] Other 10-19-2022 12:00-0500 Body height 172.72 cm Lidia Alarcon Other [employer] Other 10-19-2022 12:00-0500 Body mass index (BMI) [Ratio] 19.16 kg/m2 Lidia Alarcon Other [employer] Other 10-19-2022 12:00-0500 Body temperature 97.3 [degF] Lidia Alarcon Other [employer] Other 10-19-2022 12:00-0500 Body weight 57.15 kg Lidia Alarcon Other [employer] Other 10-19-2022 12:00-0500 Diastolic blood pressure 79 mm[Hg] Lidia Alarcon Other [employer] Other 10-19-2022 12:00-0500 Respiratory rate 16 /min Lidia Alarcon Other [employer] Other 10-19-2022 12:00-0500 SaO2% (BldA) [Mass fraction] 100 % Lidia Alarcon Other [employer] Other 10-19-2022 12:00-0500 Systolic blood pressure 123 mm[Hg] Lidia Alarcon Other [employer] Other 10-08-2022 13:15-0500 Body height 172.72 cm Teresita Ortega Other [employer] Other 10-08-2022 13:15-0500 Body mass index (BMI) [Ratio] 19.16 kg/m2 Teresita Ortega Other [employer] Other 10-08-2022 13:15-0500 Body temperature 97.5 [degF] Teresita Ortega Other [employer] Other 10-08-2022 13:15-0500 Body weight 57.15 kg Teresita Ortega Other [employer] Other 10-08-2022 13:15-0500 Respiratory rate 18 /min Teresita Ortega Other [employer] Other 10-08-2022 13:15-0500 SaO2% (BldA) [Mass fraction] 99 % Teresita Ortega Other [employer] Other 10-06-2022 18:30-0500 Body height 172.72 cm Nieves Herreraault Other [employer] Other 10-06-2022 18:30-0500 Body mass index (BMI) [Ratio] 19.28 kg/m2 Nieves Herreraault Other [employer] Other 10-06-2022 18:30-0500 Body temperature 97.7 [degF] Nieves Jessy Other [employer] Other 10-06-2022 18:30-0500 Body weight 57.52 kg Nieves Jessy Other [employer] Other 10-06-2022 18:30-0500 Diastolic blood pressure 89 mm[Hg] Nieves Jessy Other [employer] Other 10-06-2022 18:30-0500 Respiratory rate 18 /min Nieves Jessy Other [employer] Other 10-06-2022 18:30-0500 SaO2% (BldA) [Mass fraction] 100 % Nieves Jiménez Other [employer] Other 10-06-2022 18:30-0500 Systolic blood pressure 160 mm[Hg] Nieves Jiménez Other [employer] Other 08-07-2022 11:20-0400 Body height 172.72 cm Azobdulio Herrs Other [employer] Other 08-07-2022 11:20-0400 Body mass index (BMI) [Ratio] 18.73 kg/m2 Azobdulio Herrs Other [employer] Other 08-07-2022 11:20-0400 Body temperature 96.3 [degF] Azobdulio Herrs Other [employer] Other 08-07-2022 11:20-0400 Body weight 55.88 kg Azobdulio Bakhous Other [employer] Other 08-07-2022 11:20-0400 Diastolic blood pressure 84 mm[Hg] Azobdulio Herrs Other [employer] Other 08-07-2022 11:20-0400 Respiratory rate 18 /min Azobdulio Bakhous Other [employer] Other 08-07-2022 11:20-0400 SaO2% (BldA) [Mass fraction] 99 % Aziz Bakhous Other [employer] Other 08-07-2022 11:20-0400 Systolic blood pressure 139 mm[Hg] Aziz Bakhous Other [employer] Other 06-02-2022 12:15-0400 Body height 172.72 cm Teresita Ortega Other [employer] Other 06-02-2022 12:15-0400 Body mass index (BMI) [Ratio] 19 kg/m2 Teresita Ortega Other [employer] Other 06-02-2022 12:15-0400 Body temperature 98 [degF] Teresita Ortega Other [employer] Other 06-02-2022 12:15-0400 Body weight 56.7 kg Teresita Ortega Other [employer] Other 06-02-2022 12:15-0400 Respiratory rate 18 /min Teresita Ortega Other [employer] Other 06-02-2022 12:15-0400 SaO2% (BldA) [Mass fraction] 97 % Teresita Ortega Other [employer] Other 04-11-2022 16:15-0400 Body height 172.72 cm Lidia Alarcon Other [employer] Other 04-11-2022 16:15-0400 Body mass index (BMI) [Ratio] 20.98 kg/m2 Lidia Alarcon Other [employer] Other 04-11-2022 16:15-0400 Body temperature 98.7 [degF] Lidia Alarcon Other [employer] Other 04-11-2022 16:15-0400 Body weight 62.6 kg Lidia Alarcon Other [employer] Other 04-11-2022 16:15-0400 SaO2% (BldA) [Mass fraction] 97 % Lidia Alarcon Other [employer] Other 12-24-2021 12:44-0400 Body height 172.7 cm Ashanti Foote MD Work Phone: [facility] 12-24-2021 12:44-0400 Body weight 58.97 kg Ashanti Foote MD Work Phone: [facility] 12-24-2021 12:44-0400 Diastolic blood pressure 88 mm[Hg] Ashanti Foote MD Work Phone: [facility] 12-24-2021 12:44-0400 Heart rate 65 /min Ashanti Foote MD Work Phone: [facility] 12-24-2021 12:44-0400 Systolic blood pressure 151 mm[Hg] Ashanti Foote MD Work Phone: [facility] 12-10-2021 14:40-0500 Body height 172.72 cm Vladimir Clifton Other [employer] Other 12-10-2021 14:40-0500 Body mass index (BMI) [Ratio] 19.79 kg/m2 Vladimir [employer] Other [employer] Other 12-10-2021 14:40-0500 Body weight 59.06 kg Harjeetobdulio [employer] Other [employer] Other 12-10-2021 14:40-0500 Diastolic blood pressure 76 mm[Hg] Vladimir KangaDodarcie Other [employer] Other 12-10-2021 14:40-0500 Respiratory rate 16 /min Vladimir KangaDodarcie Other [employer] Other 12-10-2021 14:40-0500 SaO2% (BldA) [Mass fraction] 99 % Vladimir Clifton Other [employer] Other 12-10-2021 14:40-0500 Systolic blood pressure 130 mm[Hg] Vladimir Clifton Other [employer] Other 10-01-2021 12:20-0500 Body height 172.72 cm Loi Buenrostro Other [employer] Other 10-01-2021 12:20-0500 Body mass index (BMI) [Ratio] 19.86 kg/m2 Loi Buenrostro Other [employer] Other 10-01-2021 12:20-0500 Body weight 59.24 kg Loi Buenrostro Other [employer] Other 10-01-2021 12:20-0500 Diastolic blood pressure 90 mm[Hg] Loi Buenrostro Other [employer] Other 10-01-2021 12:20-0500 Respiratory rate 18 /min Loi Buenrostro Other [employer] Other 10-01-2021 12:20-0500 SaO2% (BldA) [Mass fraction] 99 % Loi Buenrostro Other [employer] Other 10-01-2021 12:20-0500 Systolic blood pressure 164 mm[Hg] Loi Buenrostro Other [employer] Other 04-02-2021 11:13-0400 Body height 172.72 cm Lon Miller Work Phone: [facility] Work Phone: 04-02-2021 11:13-0400 Body mass index (BMI) [Ratio] 20.53 kg/m2 Lon Miller Work Phone: [facility] Work Phone: 04-02-2021 11:13-0400 Body surface area Derived from formula 1.73 m2 Lon Miller Work Phone: [facility] Work Phone: 04-02-2021 11:13-0400 Body weight 61.24 kg Lon Miller Work Phone: [facility] Work Phone: 04-02-2021 11:13-0400 Respiratory rate 14 /min Lon Miller Work Phone: SM-Kqpgfntljvje-Siue a Work Phone: 04-02-2021 11:13-0400 0 1 Lon Miller Work Phone: UP-Jklwjlwpbcxt-Ziyo a Work Phone: Comment on above: [employer] 03-05-2021 11:31-0400 Body height 172.72 cm Referring Provider Unknown CK-Frytlupofqvp-Okvt a Work Phone: 03-05-2021 11:31-0400 Body mass index (BMI) [Ratio] 20.53 kg/m2 Referring Provider Unknown PE-Dbhmodafntgj-Kegx a Work Phone: 03-05-2021 11:31-0400 Body surface area Derived from formula 1.73 m2 Referring Provider Unknown WD-Diabmtzzgjdz-Zsrg a Work Phone: 03-05-2021 11:31-0400 Body weight 61.24 kg Referring Provider Unknown DN-Lanrqkrjcvfu-Gylp a Work Phone: 03-05-2021 11:31-0400 Diastolic blood pressure 90 mm[Hg] Referring Provider Unknown LH-Qnohmkjdnzrw-Lkmx a Work Phone: 03-05-2021 11:31-0400 Respiratory rate 14 /min Referring Provider Unknown QN-Leintogxeppi-Wcxb a Work Phone: 03-05-2021 11:31-0400 Systolic blood pressure 183 mm[Hg] Referring Provider Unknown VY-Rstvlmznrwbf-Boek a Work Phone: 03-05-2021 11:31-0400 0 1 Referring Provider Unknown UF-Nrovrnegixrl-Mgjy a Work Phone: Comment on above: [employer] 02-08-2021 18:00-0400 Body temperature 97.7 [degF] Pcp Unknown [facility] 02-08-2021 18:00-0400 Diastolic blood pressure 78 mm[Hg] Pcp Unknown [facility] 02-08-2021 18:00-0400 Heart rate 61 /min Pcp Unknown [facility] 02-08-2021 18:00-0400 Respiratory rate 15 /min Pcp Unknown [facility] 02-08-2021 18:00-0400 SaO2% (BldA) [Mass fraction] 99 % Pcp Unknown [facility] 02-08-2021 18:00-0400 Systolic blood pressure 143 mm[Hg] Pcp Unknown [facility] 02-08-2021 02:44-0400 Body height 167.[address] [facility] 02-08-2021 02:44-0400 Body weight 60.[address] [facility] Encounters Encounter Date Encounter Type Care Provider Facility Start: 11-07-2024 End: 11-07-2024 ambulatory [facility] Start: 10-20-2024 End: 10-20-2024 ambulatory Teresita Ortega APRN Work Phone: [facility] Work Phone: Start: 10-20-2024 End: 10-20-2024 Patient encounter procedure Teresita Ortega APRN Work Phone: [facility] Work Phone: Start: 10-04-2024 End: 10-04-2024 Office outpatient new 45 minutes Stella Andrade MD Work Phone: [facility] Comment on above: Recurrent tonsilliti s (Primary Dx); Stage 3 chronic kidney disease, unspecified whether stage 3a or 3b CKD (HCC) ([facility]/HCC) Start: 10-04-2024 End: 10-04-2024 ambulatory STELLA ANDRADE Not Available Start: 09-29-2024 Non-patient / Non-visit Teresita Ortega PHARMACIST ASSISTANT Work Phone: [facility] Work Phone: Start: 09-27-2024 End: 09-27-2024 Patient encounter procedure Teresita Ortega PHARMACIST ASSISTANT Work Phone: [facility] Work Phone: Start: 2024 End: 2024 Patient encounter procedure Teresita Ortega PHARMACIST ASSISTANT Work Phone: [facility] Work Phone: Start: 09-14-2024 End: 09-14-2024 Patient encounter procedure Teresita Ortega PHARMACIST ASSISTANT Work Phone: [facility] Work Phone: Start: 08-09-2024 Non-patient / Non-visit Teresita Ortega PHARMACIST ASSISTANT Work Phone: [facility] Work Phone: Start: 08-08-2024 Non-patient / Non-visit Teresita Ortega PHARMACIST ASSISTANT Work Phone: [facility] Work Phone: Start: 08-02-2024 End: 08-02-2024 Departed Referred MD Lon Miller Work Phone: [facility] [place] Work Phone: Start: 08-02-2024 End: 08-02-2024 ambulatory MD Lon Miller Work Phone: [facility] Work Phone: Start: 08-02-2024 End: 08-02-2024 Patient encounter procedure MD Lon Miller Work Phone: [facility] [place] Work Phone: Start: 07-12-2024 End: 07-12-2024 ambulatory Sharad Asencio Facility[facility] Start: 07-12-2024 End: 07-12-2024 Patient encounter procedure Sharad Asencio [facility] Start: 06-30-2024 End: 06-30-2024 ambulatory Sharad Asencio Facility:[facility] Start: 06-30-2024 End: 06-30-2024 Patient encounter procedure Sharad Asencio [facility] Start: 06-28-2024 End: 06-28-2024 Departed Referred MD Lon Miller Work Phone: [facility] [place] Work Phone: Start: 06-28-2024 End: 06-28-2024 ambulatory MD Lon Miller Work Phone: [facility] Work Phone: Start: 06-28-2024 End: 06-28-2024 Patient encounter procedure MD Lon Miller Work Phone: [facility] [place] Work Phone: Start: 06-08-2024 End: 06-08-2024 ambulatory MD Lon Miller Work Phone: [facility] Work Phone: Start: 06-08-2024 End: 06-08-2024 Patient encounter procedure MD Lon Miller Work Phone: [facility] [place] Work Phone: Start: 06-07-2024 End: 06-07-2024 ambulatory MD Lon Miller Work Phone: [facility] Work Phone: Start: 06-07-2024 End: 06-07-2024 Patient encounter procedure MD Lon Miller Work Phone: [facility] Work Phone: Start: 05-21-2024 End: 05-21-2024 Patient encounter procedure MD Lon Miller Work Phone: [facility] [place] Work Phone: Start: 05-21-2024 End: 05-21-2024 ambulatory MD Lon Miller Work Phone: [facility] Work Phone: Start: 05-21-2024 End: 05-21-2024 ambulatory [facility] Work Phone: Start: 05-21-2024 End: 05-21-2024 Patient encounter procedure [facility] [place] Work Phone: Start: 04-11-2024 End: 04-11-2024 ambulatory [facility] Work Phone: Start: 04-11-2024 End: 04-11-2024 Patient encounter procedure [facility] Work Phone: Start: 04-04-2024 End: 04-04-2024 ambulatory [facility] Work Phone: Start: 04-04-2024 End: 04-04-2024 Patient encounter procedure [facility] [place] Work Phone: Start: 03-08-2024 End: 03-08-2024 ambulatory [facility] Work Phone: Start: 03-08-2024 End: 03-08-2024 Patient encounter procedure [facility] Work Phone: Start: 03-01-2024 Non-patient / Non-visit [facility] Work Phone: Start: 02-18-2024 End: 02-19-2024 ambulatory [facility] Start: 02-18-2024 End: 02-18-2024 Office outpatient new 20 minutes [facility] PHARMACIST ASSISTANT-FLAME HARDENER Work Phone: [facility] Alena Nesbitt Comment on above: Cerebral cavernoma ( HHS-HCC) (Primary Dx) Start: 02-04-2024 End: 02-04-2024 ambulatory [facility] Work Phone: Start: 02-04-2024 End: 02-04-2024 Patient encounter procedure [facility] Work Phone: Start: 01-27-2024 End: 01-28-2024 ambulatory [facility] Start: 01-27-2024 End: 01-27-2024 Subsequent hospital visit by physician Rad External Film EF RAD EXTERNAL FILM VIRTUAL Comment on above: Arrived Start: 01-22-2024 End: 01-22-2024 ambulatory [facility] Work Phone: Start: 01-22-2024 End: 01-22-2024 Patient encounter procedure [facility] Work Phone: Start: 12-24-2023 End: 12-24-2023 ambulatory [facility] Work Phone: Start: 12-24-2023 End: 12-24-2023 Patient encounter procedure [facility] Work Phone: Start: 12-17-2023 End: 12-17-2023 Patient encounter procedure [facility] Work Phone: Start: 11-09-2023 End: 11-09-2023 ambulatory [facility] Start: 10-08-2023 ambulatory AZIZ BAKHOUS Facility:[facility] Start: 09-10-2023 Nursing evaluation o f patient and report Lon Miller [facility] Start: 09-10-2023 End: 09-10-2023 ambulatory MD Lon Miller Work Phone: [employer] Other Start: 09-10-2023 End: 09-10-2023 Departed Referred MD Lon Miller Work Phone: [facility] [place] Work Phone: Start: 09-08-2023 End: 09-08-2023 ambulatory AZIZ BAKHOUS Facility:[facility] Start: 09-08-2023 End: 09-08-2023 Patient encounter procedure Flores Marie [facility] Start: 08-27-2023 End: 08-27-2023 ambulatory Aziz Bakhous Other [employer] Other Start: 08-27-2023 Telephone encounter Aziz Bakhous [facility] Start: 08-18-2023 End: 08-18-2023 ambulatory Lon Miller Other [employer] Other Start: 08-18-2023 Office outpatient vi sit 15 minutes Lon Miller [facility] Start: 08-11-2023 End: 08-11-2023 ambulatory Aziz Bakhous Other [employer] Other Start: 08-11-2023 Office outpatient vi sit 25 minutes Vladimir Clifton [facility] [place] Start: 07-20-2023 End: 07-20-2023 ambulatory Mallorie Guardado Other [employer] Other Start: 07-20-2023 Office outpatient vi sit 15 minutes Mallorie Guardado [facility] Start: 07-20-2023 Telephone encounter Lon Miller [facility] Start: 07-14-2023 End: 07-14-2023 ambulatory Geneva Coats Other [employer] Other Start: 07-14-2023 Patient encounter procedure Geneva Burgosalvaronicho [facility] Start: 07-06-2023 End: 07-06-2023 ambulatory MD Lon Miller Work Phone: [facility] Work Phone: Start: 07-06-2023 End: 07-06-2023 Patient encounter procedure MD Lon Miller Work Phone: [facility] [place] Work Phone: Start: 07-04-2023 End: 07-04-2023 ambulatory Lon Miller Other [employer] Other Start: 07-04-2023 Telephone encounter oLn Miller [facility] Start: 07-03-2023 End: 07-03-2023 ambulatory Mallorie Guardado Other [employer] Other Start: 07-03-2023 Office outpatient vi sit 15 minutes Mallorie Guardado [facility] Start: 06-23-2023 End: 06-23-2023 ambulatory Teresita Ortega Other [employer] Other Start: 06-23-2023 Office outpatient vi sit 25 minutes Teresita Ortega [facility] Start: 06-12-2023 End: 06-12-2023 ambulatory Lidia Agnes Other [employer] Other Start: 06-12-2023 Office outpatient vi sit 15 minutes Lidia Clementsmond [facility] [place] Start: 06-02-2023 End: 06-02-2023 ambulatory Mukesh Fam Other [employer] Other Start: 06-02-2023 Office outpatient ne w 45 minutes Mukesh Bangrer [facility] Start: 06-02-2023 Telephone encounter Mukesh Fam [facility] Start: 05-27-2023 End: 05-27-2023 ambulatory Lon Miller Other [employer] Other Start: 05-27-2023 Telephone encounter Lon Miller [facility] Start: 05-26-2023 End: 05-26-2023 ambulatory Lon Miller Other [employer] Other Start: 05-26-2023 Office outpatient vi sit 15 minutes Lon Miller [facility] Start: 04-29-2023 End: 04-29-2023 ambulatory Mallorie Guardado Other [employer] Other Start: 04-29-2023 Office outpatient vi sit 15 minutes Mallorie Guardado [facility] Start: 04-17-2023 End: 04-17-2023 ambulatory Lon Miller Other [employer] Other Start: 04-17-2023 Office outpatient vi sit 15 minutes Lon Miller [facility] Start: 04-17-2023 Telephone encounter Lon Miller [facility] Start: 03-17-2023 End: 03-17-2023 ambulatory Teresita Ortega Other [employer] Other Start: 03-17-2023 Office outpatient vi sit 25 minutes Teresita Ortega [facility] Start: 02-04-2023 End: 02-04-2023 ambulatory Vladimir Clifton Other [employer] Other Start: 02-04-2023 Office outpatient vi sit 25 minutes Harjeetobdulio Etienne [facility] Start: 01-26-2023 End: 01-27-[address] LON MILLER Facility:[facility] Start: 01-19-2023 End: 01-19-2023 ambulatory Lon Miller Other [employer] Other Start: 01-19-2023 Telephone encounter Lon Miller [facility] Start: 12-23-2022 End: 12-24-[address] LON MILLER [place] [employer] Other Start: 12-23-2022 Telephone encounter Lon Miller [facility] Start: 12-18-2022 End: 12-18-2022 ambulatory Lon Miller Other [employer] Other Start: 12-18-2022 Office outpatient vi sit 15 minutes Lon Miller [facility] Start: 12-01-2022 End: 12-02-[address] LON MILLER Facility:[facility] Start: 10-27-2022 End: 10-28-[address] LON MILLER Facility:[facility] Start: 10-20-2022 End: 10-21-[address] LON MILLER Facility:[facility] Start: 10-19-2022 End: 10-19-2022 ambulatory Lidia Alarcon Other [employer] Other Start: 10-19-2022 Office outpatient vi sit 25 minutes Lidia Alarcon [facility] [place] Start: 10-08-2022 End: 10-08-2022 ambulatory Teresita Ortega Other [employer] Other Start: 10-08-2022 Office outpatient vi sit 25 minutes Teresita Ortega [facility] [place] Start: 10-06-2022 End: 10-06-2022 ambulatory Nieves Jiménez Other [employer] Other Start: 10-06-2022 Office outpatient vi sit 15 minutes Nieves Jessy [facility] Start: 08-28-2022 End: 08-28-2022 ambulatory SINTIA Todd VO Facility:[facility] Start: 08-07-2022 End: 08-07-2022 ambulatory Azobdulio Baknikkis Other [employer] Other Start: 08-07-2022 Office outpatient vi sit 15 minutes Aziz Bakhous [facility] Start: 06-02-2022 End: 06-02-2022 ambulatory Teresita Ortega Other [employer] Other Start: 06-02-2022 Office outpatient vi sit 25 minutes Teresita Jordan [facility] [address] Start: 05-12-2022 End: 05-13-[address] DOCTOR WASHINGTON Facility:[facility] Start: 04-11-2022 End: 04-11-2022 ambulatory Lidia Alarcon Other [employer] Other Start: 04-11-2022 Office outpatient vi sit 15 minutes Lidia Alarcon [facility] Start: 03-16-2022 ambulatory Ashanti Brooks Work Phone: Endocrinology Comment on above: Bp Start: 03-08-2022 End: 03-08-2022 ambulatory MEDINA CHAPMAN . Facility:[facility] Start: 02-12-2022 ambulatory Ashanti Brooks Work Phone: Endocrinology Comment on above: results Start: 02-12-2022 E-mail encounter fro m caregiver Ashanti Foote MD Work Phone: [facility] Start: 02-10-2022 ambulatory Ashanti Brooks Work Phone: Endocrinology Comment on above: Recent tests Start: 01-10-2022 End: 01-10-2022 ambulatory Rene Irwin Other [employer] Other Start: 01-10-2022 Telephone encounter Rene Irwin [facility] Start: 01-09-2022 ambulatory Ashanti Brooks Work Phone: Endocrinology Comment on above: More tests Start: 01-01-2022 ambulatory Ashanti Brooks Work Phone: Endocrinology Comment on above: results from test Start: 01-01-2022 Telephone encounter Ashanti alejandra MD Work Phone: Endocrinology Comment on above: Received Outside [facility] Records (Referral Documents ) Start: 12-24-2021 End: 12-24-2021 Patient encounter procedure Ashanti Foote MD Work Phone: Endocrinology Comment on above: Aldosteronism (HCC) (Primary Dx); Hypertensive heart disease without heart failure Start: 12-10-2021 End: 12-10-2021 ambulatory Aziz Baknikkis Other [employer] Other Start: 12-10-2021 Office outpatient vi sit 25 minutes Aziz Bakhous [facility] Start: 11-18-2021 End: 11-18-2021 ambulatory Aziz Bakhous Other [employer] Other Start: 11-18-2021 Telephone encounter Azobdulio Bakhous [facility] Start: 10-01-2021 End: 10-01-2021 ambulatory Loi Buenrostro Other [employer] Other Start: 10-01-2021 Office outpatient vi sit 25 minutes Loi Buenrostro [facility] Start: 09-16-2021 End: 09-16-2021 ambulatory Christian Valdez Other [employer] Other Start: 09-16-2021 Office outpatient vi sit 5 minutes Christian Valdez [facility] Start: 04-02-2021 Patient encounter procedure Lon Miller Work Phone: DK-Vcavvtsvnajh-Kybny Work Phone: Start: 03-05-2021 Patient encounter procedure Referring Provider Unknown DV-Kbzoukfhkcwf-Tlvll Work Phone: Start: 02-08-2021 AUDIT Lon Tyrel Paul Work Phone: HN-Ttsljxsjbvys-Mmsyj Work Phone: Start: 02-07-2021 End: 02-08-2021 Evaluation and management of inpatient Analy [facility] Kaylee [id number] Rm [id number] Start: 01-28-2019 End: 01-28-2019 Patient encounter procedure GIO JAVED Facility:[facility] Start: 10-21-2018 End: 10-22-2018 Patient encounter procedure DEFAULT PHYSICIAN Facility:[facility] Start: 10-19-2018 End: 10-20-2018 Patient encounter procedure NELSONAB Lindsay BARILLAS Facility:[facility] Start: 10-15-2018 End: 10-16-2018 Patient encounter procedure DEFAULT PHYSICIAN Facility:[facility] Start: 09-29-2018 End: 09-30-2018 Patient encounter procedure DEFAULT PHYSICIAN Facility:[facility] Start: 09-24-2018 End: 2018 Patient encounter procedure DEFAULT PHYSICIAN Facility:[facility] Procedures Date Procedure Procedure Detail Performing Clinician Start: 2024 Quick Strep (POC) Teresita Ortega PHARMACIST ASSISTANT Work Phone: Start: 09-14-2024 Quick Strep (POC) Teresita Ortega PHARMACIST ASSISTANT Work Phone: Start: 08-02-2024 Throat culture Teresita bernabe PHARMACIST ASSISTANT Work Phone: Start: 07-12-2024 Colonoscopy [facility] Start: 06-28-2024 Quick Strep (POC) MD [...] Lon Miller Other Excision of breast tissue Roland mary Frank Hysterectomy Flores Frank Plan of Treatment Date Care Activity Detail Author Start: 02-04-2025 DIABETES SCREEN DIABETES SCREEN [facility] Start: 12-24-2024 DIABETES SCREEN DIABETES SCREEN [facility] Start: 08-02-2024 Bacteria identified in Throat by Aerobe culture [facility] Start: 08-02-2024 Throat culture Throat Culture [facility] Start: 06-28-2024 Throat culture Throat Culture [facility] Start: 06-28-2024 Bacteria identified in Throat by Aerobe culture [facility] Start: 06-12-2024 Influenza vaccination Influenz a Vaccine (Season Ended) [facility] Start: 05-21-2024 Bacteria identified in Throat by Aerobe culture [facility] Start: 05-21-2024 Throat culture Throat Culture [facility] Start: 02-18-2024 End: 02-18-2024 Patient encounter procedure 02/18/2024 1:00 PM EDT Office Visit [facility] Nesbitt [address] [id number] Olga Farrar, PHARMACIST ASSISTANT-FLAME HARDENER [id number] [address] Department [place] [address] Kelton Carvajal Laz Start: 12-31-2023 Patient referral [facility] Work Phone: Start: 09-10-2023 Bacteria identified in Urine by Culture [facility] Start: 06-12-2023 COVID-19 Vaccine ( season) COVID-19 Vaccine ( season) [facility] Start: 06-12-2022 Influenza vaccination INFLUENZ A (Season Ended) [facility] Start: 01-17-2022 End: 03-19-2022 ALDOSTERONE/DIRECT RENIN RATIO ALDOSTERONE/DIRECT RENIN RATIO Lab Routine Fatigue, unspecified type Expected: 01/17/2022, Expires: 03/19/[address] [facility] Work Phone: Comment on above: Expected: 01/17/2022 , Expires: 03/19/2022 Start: 01-17-2022 End: 03-19-2022 Comprehensive metabolic 2000 panel - Serum or Plasma COMP METABOLIC PANEL Lab Routine Fatigue, unspecified type Expected: 01/17/2022, Expires: 03/19/[address] [facility] Work Phone: Comment on above: Expected: 01/17/2022 , Expires: 03/19/2022 Start: 12-24-2021 End: 02-23-2022 ALDOSTERONE/DIRECT RENIN RATIO [facility] Work Phone: Comment on above: Expected: 12/24/2021 , Expires: 02/23/2022 Start: 10-12-2021 ADVANCE DIRECTIVE DISCUSSION ADVANCE DIRECTIVE DISCUSSION [facility] Start: 06-12-2021 Influenza vaccination INFLUENZA (#1) [facility] Start: 05-25-2021 Patient encounter procedure [facility] [place] Start: 03-05-2021 [facility] procedure [facility] Start: 02-08-2021 End: 02-08-2022 Atorvastatin 80 mg Oral Tablet Daily ; Tablet (LIPITOR)DOSE = 80 mg Oral Daily Start: 07-Feb-2021 End: 07-Feb-2022 Ordered: 07-Feb-2021 Defta, Carmel Intent [facility] Start: 02-07-2021 End: 02-08-2022 [facility] Comment on above: once now and daily P RN now and daily PRN Start: 06-03-2020 Adult depression screening assessment DEPRESSION SCREENING [facility] Start: 2017 BONE DENSITY BONE DENSITY [facility] Start: 2017 Pneumococcal Vaccine : 65+ Years (1 of 1 - PCV) Pneumococcal Vaccine: 65+ Years (1 of 1 - PCV) [facility] Start: 2017 PNEUMOVAX AGE 65 AND OVER WITH 5YR LOOKBACK (#1) PNEUMOVAX AGE 65 AND OVER WITH 5YR LOOKBACK (#1) [facility] Start: 07-19-2016 DTaP/Tdap/Td Vaccine s (1 - Tdap) DTaP/Tdap/Td Vaccines (1 - Tdap) [facility] Start: 2012 RSV patient s and/or patients aged 60+ years (1 - 1-dose 60+ series) RSV patients and/or patients aged 60+ years (1 - 1-dose 60+ series) [facility] Start: 1997 COLOGUARD (FIT-DNA) COLOGUARD (FIT-D NA) [facility] Start: 1997 Colonoscopy COLONOSCOPY [facility] Start: 1997 COLORECTAL CANCER SCREENING COLORECTAL CANCER SCREENING [facility] Start: [address] COLONOGRAPHY [facility] Start: 1997 FECAL OCCULT BLOOD FECAL OCCULT BLOO D [facility] Start: 1997 LIPID SCREEN LIPID SCREEN [facility] Start: 1997 SIGMOIDOSCOPY SIGMOIDOSCOPY [facility] Start: 1992 Mammography MAMMOGRAM [facility] Start: 1971 Urine microalbumin profile DTAP,TDAP,TD (1 - Tdap) [facility] Start: 1970 HEPATITIS C SCREENING HEPATITIS C SC REENING [facility] Start: 1970 Hepatitis C screening Hepatitis C [facility] Start: 1958 Pneumococcal Vaccine : 65+ Years (1 of 2 - PCV) Pneumococcal Vaccine: 65+ Years (1 of 2 - PCV) [facility] Start: 1958 PNEUMOCOCCAL: 65+ (1 - PCV) PNEUMOCOCCAL: 65+ (1 - PCV) [facility] Start: 1957 COVID-19 VACCINE (#1) COVID-19 VACCI NE (#1) [facility] Start: 1957 COVID-19 VACCINE (1) COVID-19 VACCIN E (1) [facility] Start: 1952 Lipid panel Lipid Panel [facility] Start: 1952 Medicare Annual Well ness Visit Medicare Annual Wellness Visit (AWV) [facility] Start: 1952 Screening for malign ant neoplasm of colon [facility] Start: 1952 Screening for osteoporosis Bone Density Scan [facility] ALDOSTERONE, 24 HOUR URINE ALDOSTERONE, 24 HOUR URINE Lab Routine Hypertensive heart disease without heart failure Aldosteronism (HCC) Ordered: 12/24/[address] [facility] Work Phone: Comment on above: Ordered: 12/24/2021 ALDOSTERONE, 24 HOUR URINE ALDOSTERONE, 24 HOUR URINE Lab Routine Fatigue, unspecified type Ordered: 01/17/[address] [facility] Work Phone: Comment on above: Ordered: 01/17/2022 Comprehensive metabo lic 2000 panel - Serum or Plasma [facility] End: 03-14-2023 Ct abdomen w/o & w/contrast material CT ADRENAL WO/W IVCON Radiology Routine Adrenal adenoma, unspecified laterality 1 Occurrences starting 02/12/2022 until 03/14/[address] [facility] Work Phone: Comment on above: 1 Occurrences starti ng 02/12/2022 until 03/14/2023 CT Unspecified body region [facility] MG Breast - bilatera l Diagnostic [facility] Patient referral [facility] Work Phone: Renal function 2000 panel - Serum or Plasma [facility] Sodium [Moles/time] in 24 hour Urine SODIUM 24 HR URINE Lab Routine Hypertensive heart disease without heart failure Aldosteronism (HCC) Ordered: 12/24/[address] [facility] Work Phone: Comment on above: Ordered: 12/24/2021 Sodium [Moles/time] in 24 hour Urine SODIUM 24 HR URINE Lab Routine Fatigue, unspecified type Ordered: 01/17/[address] [facility] Work Phone: Comment on above: Ordered: 01/17/2022 End: 02-02-2023 Us retroperitoneal real time w/image limited US RENAL ARTERY/VEIN Radiology Routine Fatigue, unspecified type 1 Occurrences starting 01/03/2022 until 02/02/[address] [facility] Work Phone: Comment on above: 1 Occurrences starti ng 01/03/2022 until 02/02/2023 [facility] Immunizations Immunization Date Immunization Notes Care Provider [facility] 08-19-2022 influenza virus vaccine, split virus (incl. purified surface antigen) Lon Miller Other [employer] Other 08-19-2022 influenza virus vaccine, unspecified formulation Flores Marie [facility] 02-19-2019 zoster vaccine recombinant Ashanti Foote MD Work Phone: [facility] 12-12-2018 zoster vaccine recombinant Ashanti Foote MD Work Phone: [facility] 07-09-2018 influenza virus vaccine, split virus (incl. purified surface antigen) Lon Miller Other [employer] [facility] [employer] Other 07-09-2018 influenza virus vaccine, unspecified formulation Flores Marie [facility] 07-09-2018 influenza, high dose seasonal, preservative-free Ashanti Foote MD Work Phone: [facility] 06-25-2017 influenza virus vaccine, split virus (incl. purified surface antigen) Lon Miller Other [employer] Other 06-25-2017 influenza virus vaccine, unspecified formulation Flores Frank [facility] 06-25-2017 influenza, injectabl e, quadrivalent, preservative free Ashanti Foote MD Work Phone: [facility] 07-18-2016 influenza virus vaccine, unspecified formulation Flores Frank [facility] 07-18-2016 influenza, seasonal, injectable, preservative free Ashanti Foote MD Work Phone: [facility] 07-18-2016 tetanus and diphther ia toxoids, adsorbed, preservative free, for adult use (5 Lf of tetanus toxoid and 2 Lf of diphtheria toxoid) Lon Miller Other [facility] 08-24-2015 influenza virus vaccine, unspecified formulation Flores Marie [facility] 08-24-2015 influenza, injectabl e, quadrivalent, preservative free Ashanti Foote MD Work Phone: [facility] 07-12-2015 influenza virus vaccine, unspecified formulation Sharad Asencio [facility] 07-12-2015 influenza, injectabl e, madin chuck canine kidney, preservative free Ashanti Foote MD Work Phone: [facility] 07-22-2013 tetanus and diphther ia toxoids, adsorbed, preservative free, for adult use (5 Lf of tetanus toxoid and 2 Lf of diphtheria toxoid) Lon Miller Other [facility] 10-20-2012 influenza virus vaccine, unspecified formulation Ashanti Foote MD Work Phone: [facility] Payers Date Payer Category Payer Self-pay [id number] 2021 Private Health Insurance [employer] [id number] 2020 Unknown MMO MMO MEDICARE SUPPLEMENT [id number] 2020-Present [phone] [address] [place] [address] Indemnity [id number]. [id number] 2019 Medicare [id number] [id number]. [id number] 2015 Medicare MEDICARE MEDICAR E A AND B [id number] 2015-Present [phone] [address] [address] [place] [address] Medicare [id number]. [id number] 1959 Medicare [id number] 2.16.840.1.149577.19 1959 Unknown [id number] 2.16.840.1.822251.19 1954 Unknown [id number] 2.16.840.1.582919.3.579.2. 647 1952 Unknown [id number] 2.16.840.1.139757.3.579.2. 647 1952 Unknown [id number] 2.16.840.1.991684.3.579.2. 647 1952 Unknown [id number] 2.16.840.1.030157.3.579.2. 647 1952 Unknown [id number] 2.16.840.1.459984.3.579.2. 647 1952 Unknown [id number] 2.16.840.1.344530.3.579.2. 647 1952 Unknown [id number] 2.16.840.1.062967.3.579.2. 593 1952 Unknown [id number] 2.16.840.1.139847.3.579.2. 593 1952 Unknown [id number] 2.16.840.1.994299.3.579.2. 593 1952 Unknown [id number] 2.16.840.1.666228.3.579.2. 593 1952 Unknown [id number] 2.16.840.1.678206.3.579.2. 593 1952 Unknown [id number] 2.16.840.1.535041.3.579.2. 593 1952 Unknown [id number] 2.16.840.1.242849.3.579.2. 593 1952 Unknown [id number] 2.16.840.1.102849.3.579.2. 593 1952 Unknown [id number] 2.16.840.1.221992.3.579.2. 1245 1952 Unknown [id number] 2.16.840.1.566647.3.579.2. 1242 1952 Unknown [id number] 2.16.840.1.938016.3.579.2. 727 1952 Unknown [id number] 2.16.840.1.301379.3.579.2. 727 1952 Unknown [id number] 2.16.840.1.776951.3.579.2. 727 1952 Unknown [id number] 2.16.840.1.081865.3.579.2. 1259 Medicare Medicare-OP No Part B [id number] Private Health Insurance [employer] Insurance [facility] [id number] Unknown [id number] Unknown Unknown [id number] 2.16.840.1.697238.3.579.2. 531 Unknown [id number] 2.16.840.1.718035.3.579.2. 531 Unknown [id number] 2.16.840.1.642798.3.579.2. 531 Unknown [id number] 2.16.840.1.057689.3.579.2. 531 Social History Date Type Detail Facility [facility] Tobacco smoking consumption unknown [facility] Start: 10-20-2012 End: 10-04-2024 Current every day smoker Current every day smoker [facility] Work Phone: Start: 10-20-2012 End: 10-04-2024 Tobacco smoking status NEIS Smokes tobacco daily [facility] History of tobacco use Cigarette Smoker [facility] Start: 10-20-2012 End: 10-04-2024 Tobacco use and exposure Smokeless tobacco non-user [facility] Start: 12-24-2021 Alcohol intake 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 (finding) [facility] Start: 1950 Sex Assigned At Not on file [facility] Start: 12-14-2021 End: 02-18-2024 Exposure to SARS-CoV-2 (event) Not sure [facility] Start: 1950 Sex Assigned At Female [facility] Start: 02-18-2024 End: 10-04-2024 Sex Assigned At [facility] Start: 07-03-2021 End: 03-08-2024 Tobacco smoking status NHIS Smoker (finding) [facility] Start: 09-08-2023 End: 06-30-2024 Tobacco smoking status Light tobacco smoker (finding) [facility] Start: 01-05-2024 Gender identity Identifies as female gender (finding) [facility] Tobacco smoking status Never Fishe [facility] Start: 10-04-2024 Alcoholic beverage intake Ex-drinker (finding) [facility] Start: 10-20-2024 Sex Female (finding) [facility] Functional Status Date Assessment Result Facility 07-12-2024 Functional Status N/A [facility] 06-30-2024 Functional Status N/A [facility] 09-08-2023 Functional Status N/A [facility] Functional observable [facility] Mental Status Date Assessment Result Facility 02-08-2021 Cognitive functi ons [id number] [facility] Clinical Notes 02-07-2021 to 11-07-2024 Stella Andrade MD - 10/04/2024 10:20 AM EST Note Date & Type Note Facility 11-07-2024 Note [facility] Note Chief Complaint: Patient here for 1 year follow up CAD and hypertension. Had routine labs with lipid panel last month. She takes spironolactone PRN but says she hasn't needed to take it in a long time. Denies recent chest pain, SOB, and lightheadedness/syncope. HPI: Syed Michelle is a 74 y.o. female With a history of moderate disease of the left anterior descending, resistant hypertension in the past and chronic kidney disease here in routine follow-up Doing well; no new cardiovascular complaints Blood pressure appears to be well-controlled She has a history of brain bleeds 3 to 4 years ago; therefore she has not been on aspirin. Update 11/07/2024, Doing well from a cardiac standpoint; no chest pain, no significant shortness of breath. Is able to walk up and down a flight of stairs without difficulty. Used to see a neurosurgeon for a cluster of vessels in the neck that may cause an aneurysm . Has not seen them for a while. Cardiology ROS: Review of Systems Neurological: Positive [...] has been smoking cigarettes. She has a 3.8 pack-year smoking history. She has never used [...] Rfl: 3 hydrALAZINE (Apresoline) 50 mg tablet, TAKE 1 TABLET BY MOUTH IN THE MORNING AND 1 TABLET AT BEDTIME, Disp: 180 tablet, Rfl: 3 magnesium oxide (Mag-Ox) 400 mg (241.3 mg magnesium) tablet, magnesium 400 mg (as magnesium oxide) tablet TAKE 1 TABLET BY MOUTH EVERY DAY WITH FOOD, Disp: , Rfl: potassium chloride CR (K-Tab) 20 mEq ER tablet, TAKE 1 TABLET BY MOUTH EVERY MORNING*DO NOT CRUSH, CHEW, OR SPLIT, Disp: 90 tablet, Rfl: 3 spironolactone (Aldactone) 25 mg tablet, Take 0.5 tablets (12.5 mg) by mouth if needed each day (for SBP > 130)., Disp: 45 tablet, Rfl: 3 traZODone (Desyrel) 50 mg tablet, Take 50 mg by mouth if needed., Disp: , Rfl: Last Recorded Vitals BP 120/74 (BP Location: Right arm, Patient Position: Sitting) Pulse 67 Ht 1.727 m (5' 8 ) Wt 53.5 kg (118 lb) SpO2 100% BMI 17.94 kg/m??? Physical Examination: GENERAL: alert and oriented [...] 4. Follow up with me in the [facility] in 3-4 weeks. 5. Follow up [...] noted in the LEFT kidney. Mildly reduced (more content not included)... [facility] 10-04-2024 History of Present illness Narrative Subjective Patient ID: Syed Michelle is a 74 y.o. female who presents for Throat Problem (Recurring sore throat). Pt states she has a positive strep cx monthly. Records show positive strep tests in March, May and Sep. Started in March. Pt has stage 3 kidney dz. No family history on file. Active Ambulatory Problems Diagnosis Date Noted Abnormal stress test 02/12/2015 Adrenal adenoma 11/03/2022 Anxiety disorder 08/23/2020 Breast CA ([facility]) 10/11/2012 Cerebral cavernoma 05/25/2018 Chest pain 02/12/2015 Coronary atherosclerosis ([facility]) 08/23/2020 Family history of cardiovascular disease 08/23/2020 Fatigue 10/20/2012 Hypertensive disorder ([facility]) 02/25/2019 Hypokalemia 08/23/2020 Memory loss 10/20/2012 Seasonal allergic rhinitis 09/29/2024 Sensorineural hearing loss (SNHL) of both ears 10/16/2022 Vitamin D deficiency 09/29/2024 Resolved Ambulatory Problems Diagnosis Date Noted No Resolved Ambulatory Problems No Additional Past Medical History Past Surgical History: Procedure Laterality Date CARDIAC CATHETERIZATION CHOLECYSTECTOMY COLONOSCOPY CT ANGIO HEAD 02/08/2021 CT ANGIO HEAD 02/08/2021 CT ANGIOGRAM NECK 02/08/2021 CT ANGIOGRAM NECK 02/08/2021 HYSTERECTOMY MASTECTOMY WISDOM TOOTH EXTRACTION Allergies Allergen Reactions Bupropion Other Reaction(s): Unknown Buspirone Unknown Corticosteroids Unknown Lisinopril Other Reaction(s): Unknown Sulfa Antibiotics Hives and Unknown Tetracyclines & Related Other Reaction(s): Unknown Zolpidem Unknown Linaclotide Unknown Other Reaction(s): Unknown Current Outpatient Medications on File Prior to Visit Medication Sig Dispense Refill atorvastatin (Lipitor) 80 MG tablet Take 80 mg by mouth in the morning. carvedilol (Coreg) 25 MG tablet Take 1 tablet by mouth in the morning and 1 tablet before bedtime. hydrALAZINE (Apresoline) 50 MG tablet TAKE 1 TABLET BY MOUTH IN THE MORNING AND 1 TABLET AT BEDTIME magnesium oxide (Mag-Ox) 400 MG tablet 1 (one) time each day at the same time potassium chloride CR (K-Tab) 20 MEQ ER tablet TAKE 1 TABLET BY MOUTH EVERY MORNING*DO NOT CRUSH, CHEW, OR SPLIT spironolactone (Aldactone) 25 MG tablet Take 12.5 mg by mouth Daily as needed No current facility-administered medications on file prior to visit. Objective Last Recorded Vitals Vitals: 10/04/24 1019 BP: 131/87 ENT Physical Exam Constitutional Appearance: patient appears well-developed, well-nourished and well-groomed, Communication/Voice: communication appropriate for developmental age; vocal quality normal; Oral Cavity/Oropharynx Lips: normal; Teeth: normal; Gums: gingiva normal; Tongue: normal; Oral mucosa: normal; Hard palate: normal; Assessment/Plan Diagnoses and all orders for this visit: Recurrent tonsillitis Stage 3 chronic kidney disease, unspecified whether stage 3a or 3b CKD (HCC) ([facility]) Tonsillectomy not indicated, but tx with a prolonged course of a broad spectrum abx may sterilize tonsils. Pt will call back and let us know who her director radio news is before I stat augmentin. documented in this encounter [facility] 10-04-2024 Evaluation note Diagnosis Recurrent tonsillitis- Primary Stage 3 chronic kidney disease, unspecified whether stage 3a or 3b CKD (HCC) ([facility]) documented [id number] Evaluation note* Diagnosis Onset Date Resolution Status Admit Date Sore throat noneactive August 02, 2024 4:15pm Acute streptococcal pharyngitis acute September 14 1:54pm Sore throat noneactive September 14, 2024 1:54pm Viral URI acute 2024 10:46am Sore throat noneactive September 10:46am Chronic kidney disease, stag e 3a acute September 27 10:56am Essential (primary) hypertension acute September 27 10:56am Hyperlipidemia acute September 112023 10:56am Hypomagnesemia acute September 112023 10:56am Nicotine dependence, cigarettes, uncomplicated acute Decemb er 2023 10:56am Pharyngitis acute September 10:56am Recurrent streptococcal pharyngitis acute September 27 10:56am Vitamin B12 deficiency acute De cember 2023 10:56am [facility] Work Phone: 1(997) 491-136110-03-2024 NoteProgress Note-Physician Patient: SYED MICHELLE Age: 73 years Sex: [...] list: All Problems Smoker / SNOMED CT [id number] / Confirmed Added secondary to documentation in Social History. Melanosis coli / SNOMED CT 26398776 / Confirmed Kidney stones / SNOMED CT 277551199 / Confirmed Hydronephrosis / SNOMED CT 79849655 / Confirmed Family hx of colon cancer / SNOMED CT 884968402 / Confirmed Renal cyst / SNOMED CT 5102690206 / Confirmed Resolved: Subdural hematoma / SNOMED CT 887873157 Resolved: Overactive bladder / SNOMED CT 1804763187 Resolved: Hypokalemia / SNOMED CT 41672913 Resolved: Hypertension / SNOMED CT 03311676 Resolved: Hyperlipidemia / SNOMED CT 86247922 Resolved: Hypercholesterolemia / SNOMED CT 20279074 Resolved: Coronary artery disease / SNOMED CT 9311798801 Resolved: Breast cancer in remission / SNOMED CT 6553247235 Resolved: Anxiety / SNOMED CT 70739424 Histories Procedure history: Colonoscope (091035881). Mastectomy (2874781360). Hysterectomy (516731286). Cholecystectomy (14612567). Social History Social & Psychosocial Habits Alcohol [...] adequate air exchange. Cardiovascular: Regular rhythm. Plan [place] [employer] Anesthesiologists (ASA) physical status classification: Class III. Anesthetic Preoperative Plan: Anesthesia General.[facility] Comment on above:Result Comment: Electronically Signed By: Diego Durán Jr, DO\.br\Date and Time Signed: 07/14/24 12:41 [id number] NoteProgress Note-Physician Patient: SYED MICHELLE Age: 73 years Sex: [...] Discharge when meets criteria ( To home ).[facility]Result Comment: Electronically Signed By: Diego Durán Jr, DO\Date and Time Signed: 07/14/24 12:40 EDT 07-12-2024 Hospital Discharge instructions Patient Education 07/12/2024 08:51:10 Hemorrhoids, Uyqo-bt-Kcdm Hemorrhoids Hemorrhoids are swollen veins that may [...] Follow these instructions at home: Medicines Take keoc-mgy-fifwuha and prescription medicines only as told by [...] 3 4 times a day. You may dothis in a bathtub. You may also use [...] provider. Document Revised: 06/10/2023 Document Reviewed: 06/10/2023 [employer] Patient Education 2023 [employer]. 07/12/2024 08:51:01 Colon Polyps Colon Polyps Colon polyps are tissue growths inside the colon, which is part of the large intestine. They are one of the types of polyps that can grow in the body. A polyp may be a round bump or a mushroom-shapedgrowth. You could have one polyp or more [...] smoking cigarettes, drinking too much alcohol, not gettingenough exercise, and eating a diet that is [...] contain nicotine or tobacco, such as cigarettes, e- cigarettes, and chewing tobacco. If you need help [...] hard liquor (44 mL). General instructions Take wsqt-jzn-esbqlpz and prescription medicines only as told by [...] provider. Document Revised: 01/16/2021 Document Reviewed: 01/16/2021 [employer] Patient Education 2023 [employer] 07/12/2024 08:51:00 Colonoscopy, Care After Surgery Salam (CUSTOM) Colonoscopy Care After Surgery Please read the instructions outlined below and refer to this sheet in the next few weeks. These discharge instructions provide you with general information on caring for yourself after you leave thehospital. Your doctor may also give you specific [...] Heavy or fried foods are harder to digestand may make you feel nauseated (sick to [...] Care 06/30/2024 11:19:00 With:Elif MARCUS, SARITA Medel, [facility] Address: When: Unknown Comments:Call for any problems. The office will reach out in about one week from procedure date. [facility] 10-01-2024 NotePatient Education - Text Colonoscopy Care After Surgery Please read the instructions outlined below and refer to this sheet in the next few weeks. These discharge instructions provide you with general information on caring for yourself after you leave thespital. Your doctor may also give you specific [...] Heavy or fried foods are harder to digestand may make you feel nauseated (sick to [...] these instructions at home: Medicines ? Take fjlj-pez-mvtkwjc and prescription medicines only as told by [...] paper or moist towe (more content not included)...[facility]08-10-2024 Evaluation note* Diagnosis Onset Date Resolution Status Chronic kidney disease, stage 3a acute Hydronephrosis, right acute Hyperaldosteronism acute Hyperlipidemia acute [id number] acute Hypokalemia acute Hypomagnesemia acute Vitamin B12 deficiency acute Vitamin D deficiency acute Strep pharyngitis acute Essential (primary) hypertension acute Strep pharyngitis acute Sore throat noneactive [facility] Work Phone: 1(587) 276-477007-01-2024 Evaluation note* Diagnosis Onset Date Resolution Status Strep pharyngitis noneactive Sore throat noneactive Viral URI noneactive Sore throat noneactive Chronic kidney disease, stage 3a acute Hydronephrosis, right acute Hyperaldosteronism acute Hyperlipidemia acute [id number] acute Hypokalemia acute Hypomagnesemia acute Vitamin B12 deficiency acute Vitamin D deficiency acute Strep pharyngitis acute [facility] Work Phone: 1(151) 618-430406-24-2024 Evaluation note* Diagnosis Onset Date Resolution Status Strep pharyngitis noneactive Sore throat noneactive Viral URI noneactive Sore throat noneactive Chronic kidney disease, stage 3a acute Hydronephrosis, right acute Hyperaldosteronism acute Hyperlipidemia acute [id number] acute Hypokalemia acute Hypomagnesemia acute Vitamin B12 deficiency acute Vitamin D deficiency acute Strep pharyngitis acute [facility] Work Phone: 1(437) 754-196005-09-2024 History of Present illness Narrative* Olga Farrar, THEA-FLAME HARDENER - 02/18/2024 1:00 PM EDT [facility] Neurosurgery History of Present Illness Syed Michelle is a 73-year-old female with a PMH significant for CAD on ASA, HTN, CKD III, IBS, anxiety, breast CA s/p mastectomy (2008) completed chemotherapy and 5 years of hormonal therapy, s/p hysterectomy, and 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 Patient presented for neurosurgical evaluation [...] all orders for this visit: Cerebral cavernoma ([facility]) Provider Impression: Patient is a 73-year-old female [...] ANGIO W AND WO IV CONTRAST 02/08/2021 [facility] HEAD ANGIO W AND WO IV CONTRAST 02/08/2021 CT HEAD ANGIO W AND WO IV CONTRAST 02/08/2021 [facility] Social History Tobacco Use Smoking status: Every Day Types: Cigarettes Smokeless tobacco: Never No family history on file. Allergies Allergen Reactions Sulfa (Sulfonamide Antibiotics) Unknown No current outpatient medications documented in this [facility] Work Phone: 1(671) 523-270201-29-2024 [facility] Note Chief Complaint: Patient here [...] 4. Follow up with me in the [facility] in 3-4 weeks. 5. Follow up [...] of the left ant (more content not included)...[facility]11-30-2023 Evaluation note* Encounter Date Diagnosis Assessment Notes Treatment Notes Treatment Clinical Notes Aug, Dysuria (ICD-10 - R30.0) [employer] Other [id number] Hospital Discharge instructions Patient Education 09/08/2023 11:18:03 [...] include: ?8 oz (237 mL) of milk, vfzoqfi-vhkpokfyourn-eywpb milk, and calcium- fortifiedfruit juice. Calcium-fortified means [...] ?Spinach (cooked), rhubarb, beets, sweet potatoes, and Cuban chard. ?Peanuts. ?Potato chips, slovenian fries, and baked potatoes with skin on. ?Nuts and nut products. ?Chocolate. If you regularly take a diuretic medicine, make sure to eat at least 1 or 2 servings of fruits or vegetables that are high in potassium each day. These include: ?Avocado. ?Banana. ?Platte, prune, carrot, or tomato juice. ?Baked potato. [...] magnesium, fish oil, or vitamin B6. Take awfu-ziy-edfrrmn and prescription medicines only as told by [...] Casseroles. Pizza. Lasagna. Frozen meals. Potato chips. Icelandic fries. The items listed above may not [...] provider. Document Revised: 06/09/2022 Document Reviewed: 06/09/2022 [employer] Patient Education 2022 [employer]. Follow Up Care 08/14/2023 11:28:21 With:Frank MARCUS, LAURA Palacios, [facility] Address: When: Unknown Comments:IDALIA [facility] 11-07-2023 Evaluation note* Encounter Date Diagnosis Assessment Notes Treatment Notes Treatment Clinical Notes Aug, Strep pharyngitis (ICD-10 - J02.0) Finish med. : Called pt on 08/21 and her symptoms were resolved. Declines referral to ENT at this time. Will call if further issues. [employer] Other 10-31-2023 Evaluation note* Encounter Date Diagnosis [...] (ICD-10 - E26.9) Patient was referred to [facility] endocrinology department. Patient had CAT scan of [...] will refer the patient to Urology clinic [facility] Other 10-09-2023 Evaluation note* Encounter Date Diagnosis [...] She does not currently have strep infection. [facility] Other 10-03-2023 Evaluation note* Encounter Date Diagnosis [...] her risk and is unmotivated to quit. [facility] Other 09-22-2023 Evaluation note* Encounter Date Diagnosis [...] wait another 24 hours prior to testing. [facility] Other 09-12-2023 Evaluation note* Encounter Date Diagnosis [...] understanding and is agreeable to treatment plan. [facility] Other 09-01-2023 Evaluation note* Encounter Date Diagnosis [...] for reevaluation of your frequent strep infections. [facility] Other 08-22-2023 Evaluation note* Encounter Date Diagnosis [...] symptomatology and family history of colorectal cancer [facility] Other 08-15-2023 Evaluation note* Encounter Date Diagnosis Assessment Notes Treatment Notes Treatment Clinical Notes 15 Aug, 2023 Essential (primary) hypertension (ICD-10 - I10) Chronic problem. Monitor K and renal function on present meds. May, Fatigue, unspecified type (ICD-10 - R53.83) Pt concerned for anemia or thyroid disease. will call w lab results. May, Generalized anxiety disorder (ICD-10 - F41.1) [facility] Other 07-19-2023 Evaluation note* Encounter Date Diagnosis [...] continue Coricidin for other upper respiratory symptoms [facility] Other 07-07-2023 Evaluation note* Encounter Date Diagnosis Assessment Notes Treatment Notes Treatment Clinical Notes Apr, Generalized abdominal pain (ICD-10 - R10.84) Pt agrees to referral for concern that this has happened twice in 2 months. States the pain was very severe. Referral placed to Vascular. [facility] Other 06-06-2023 Evaluation note* Encounter Date Diagnosis [...] understanding and is agreeable to treatment plan [facility] Other 04-26-2023 Evaluation note* Encounter Date Diagnosis Assessment Notes Treatment Notes Treatment Clinical Notes Jan, Hyperaldosteronism (ICD-10 - E26.9) Patient was referred to [facility] endocrinology department. Patient had CAT scan of [...] Hyperlipidemia, unspecified hyperlipidemia type (ICD-10 - E78.5) [facility] Other 03-09-2023 Evaluation note* Encounter Date Diagnosis Assessment Notes Treatment Notes Treatment Clinical Notes Dec, Breast pain, left (ICD-10 - N64.4) Reviewed symptoms and case with mamm tech. They recommend B diagnostic with care to implant area. Explained to Peg and order sent to hospital. Dec, History of breast cancer (ICD-10 - Z85.3) [facility] Other 01-08-2023 Evaluation note* Encounter Date Diagnosis Assessment Notes [...] no improvement in 2 to 3 days [facility] Other 12-28-2022 Evaluation note* Encounter Date Diagnosis [...] treatment plan. Patient left in stable condition [facility] Other 12-26-2022 Evaluation note* Encounter Date Diagnosis Assessment Notes Treatment Notes Treatment Clinical Notes Sep, Right otitis media with effusion (ICD-10 - H65.91) take medication as directed. Middle ear fluid can be caused from allergies, traveling or viral infections. It may linger. Follow up with PCP if symptoms persist [facility] Other 10-27-2022 Evaluation note* Encounter Date Diagnosis Assessment Notes Treatment Notes Treatment Clinical Notes Jul, Hyperaldosteronism (ICD-10 - E26.9) Patient was referred to [facility] endocrinology department. Patient had CAT scan of [...] the patient to eat banana a day [facility] Other 08-22-2022 Evaluation note* Encounter Date Diagnosis [...] understanding and is agreeable to treatment plan [facility] Other 07-01-2022 Evaluation note* Encounter Date Diagnosis [...] family physician if no improvement by Thursday. [facility] Other 06-06-2022 Miscellaneous Notes* Telephone Encounter - Oneal Luz MA - 03/17/2022 8:50 AM EDT FLORA: 12/24/2021 NOV: Not scheduled Patient is sending an update regarding her blood pressure. Thank you, Ginette Luz MA documented in this [facility] Miscellaneous Notes* Telephone Encounter - Kusum [...] 111 High 81 CM documented in this [facility]04-14-2022 Miscellaneous Notes* Telephone Encounter - Ashanti Foote MD - 01/23/2022 4:11 PM EDT Noted. Thanks, Ashanti Foote MD, MPH * Telephone Encounter - Arlette Carias Rental Counter Clerk - 01/01/2022 12:26 PM EDT Received various outside medical records. Indexed to chart. documented in this [facility]04-01-2022 Miscellaneous Notes* Telephone Encounter - Oneal [...] you, Ginette Luz MA documented in this [facility]03-25-2022 Miscellaneous Notes* Telephone Encounter - Ivette Cervantes APRN.CNP - 01/03/2022 12:[address] Foote, Please sign ULTRA SOUND order if appropriate. When would you like CT completed? Per last note: will do renal artery US (to evaluate for renal artery stenosis) and CT adrenals next time after tests are completed Ivette Cervantes APRN.FLAME HARDENER * Telephone Encounter - Kusum Bullock MA - 01/01/2022 3:39 PM EDT Images from the original note were not included. FLORA: 12/24/21 NOV: NONE Pt is requesting CT. From previous office visit 12/24/21 I see no orders for US or CT. Please advise documented in this encounterOhio[facility]03-15-2022 NoteHNO ID: [id number] Author: Ashanti Foote MD Service: ? Author [...] bilateral subdural hematomas She normally follows in [place]. She sees a director radio news and they recommended she see endocrinology for [...] maintenance medication. Dr. Clifton is her new director radio news. On potassium during breast cancer treatment - [...] taking both beta blockers. Both PCP and director radio news change her BP meds. Current Outpatient Medications [...] clear to auscultation E (more content not included)...[facility]03-15-[facility] History of Present illness Narrative* Ashanti Foote [...] bilateral subdural hematomas She normally follows in [place]. She sees a director radio news and they recommended she see endocrinology for [...] maintenance medication. Dr. Clifton is her new director radio news. On potassium during breast cancer treatment - [...] taking both beta blockers. Both PCP and director radio news change her BP meds. Current Outpatient Medications [...] on 12-06-2021 Aldosterone 11.8 ng/dL Normal 0.0-30.0 [facility] Comment on above: Performed By: #### CBC #### [facility] [address] [place] [id number] Kennyverna Jangen RENIN ACTIVITY on 12-05-2021 Renin Activity, Plasma <0.167 Critically low 0.167-5.380 [facility] Comment on above: Performed By: #### BMP #### [facility] [address] [place] [address] Kenny Nicole PTH INTACT on 12-03-2021 PTH, Intact 46 pg/mL Normal 15-65 [facility] Comment on above: Performed By: #### BMP #### [facility] [address] [place] [address] Kenny Nicole ALDOSTERONE URNE 24HR on 04-11-2021 Aldosterone U,Random <2.50 Normal Not Estab. [facility] Comment on above: Result Comment: This test was developed and its performance characteristics determined by [facility]. It has not been cleared or approved by the Food and Drug Administration. Performed By: #### BMP #### [facility] [address] [place], [place] [address] Kenny Rivera Aldosterone,U, Timed <4.75 Normal 0.00-19.00 [facility] Comment on above: Result Comment: Adult Ranges Low Sodium Intake 20.00 - 80.00 Normal Sodium Intake 0.00 - 19.00 High Sodium Intake 0.00 - 12.00 Performed By: #### BMP #### [facility] [address] [place], [place] [address] Kenny Rivera OUTSIDE IMAGING: CT ABD/PELV W [...] 1:44 PM 12/24/2021 Click here to page [facility] STAFF PHYSICIAN NOTE OF PERSONAL [...] Foote MD, MPH Endocrinology documented in this encounterOhio[facility]03-15-2022 Instructions* Patient Instructions* Theodore Henderson MA [...] these tests. Thank you for choosing the [facility] Department of Endocrinology, Diabetes and Metabolism. Did you know that you need to call 48 hours in advance of your scheduled visit, if you are unable to make your appointment? The Endocrinology and Metabolism [facility] thanks you for your commitment, because patients not showing to their appointment results in a lost opportunity for patients to receive [facility] health care at the [facility]. To Cancel an appointment, please choose one of the following: - Call the Appointment Call Center at [phone] - From Siri, Go to Appointments Cancel Appts If cancelling, consider your need to reschedule to prevent further delays in your care. To Schedule an appointment, please choose one of the following: - Call the Appointment Call Center at [phone] - From Siri, Go to Appointments Request an Appt documented in this encounterOhiohealth [facility]03-01-2022 Evaluation note* Encounter Date Diagnosis Assessment [...] sampling . I will refer patient to [facility] endocrinology clinic blood pressure Dec, Hyperaldosteronism (ICD-10 [...] volume status. Monitor renal function as indicated [facility] Other 02-07-2022 Evaluation note* Encounter Date Diagnosis Assessment Notes Treatment Notes Treatment Clinical Notes Nov, Hypokalemia (ICD-10 - E87.6) [facility] Other 12-06-2021 Evaluation note* Encounter Date Diagnosis [...] Patient care instructions given in writting by [facility] document. [facility] Other 04-30-2021 NoteSend Summary: Discharge Summary Providers: Provider RoleProvider Name Moshe Farfan Abhishek PrimaryBraun, John T Note Recipients: Jordan Miller MD Discharge: Summary: Admission Date: .07-Feb-2021 19:57:00 Discharge Date: 08-Feb-2021 Attending Physician at Discharge: Analy Anthony Admission Reason: SDH Final Discharge Diagnoses: SDH (subdural hematoma) Procedures: none Condition at Discharge: Satisfactory Disposition at Discharge: .Home Vital Signs: T PRBPSpO2 Value36.57136306/8599% Date/Time02/08 8: 10: 10: 10: 10:00 Range(36.5C - 37C ) (59 - 78 ) (12 - 26 ) (118 - 194 )/ (58 - 94 ) (95% - 100% ) Highest temp of 37 C was recorded at 02/08 0:00 Date: Weight/Scale Type:Height: 08-Feb-2021 00:4460.9 kg / ndy827.6 cm Physical Exam: General: in bed, no [...] Analy Anthony Scheduled Date/Time: 05-Mar-2021 11:15 Location: [facility]; [facility] [address] [place], [place] Follow-Up: Physician/Dept/Service: CAT Scan of Head Scheduled Date/Time: 05-Mar-2021 09:30 Location: [facility], Radiology Department, 1st floor Registration; [address] [place], [place] Discharge Medications: Home Medication losartan 50 [...] Mild (1-3) Signature/Cosignature/Attestation: Note Completion: Provider/Team Pager #[phone] Total time spent today was 45 minutes, all of which was spent coordinating patient's discharge Electronic Signatures: Katie Stuart (PHARMACIST ASSISTANT-FLAME HARDENER) (Signed 08-Feb-2021 11:38) Authored: Send Summary, Summary Content, Ongoing Care, Note Completion Last Updated: 08-Feb-2021 11:38 by Katie Stuart (PHARMACIST ASSISTANT-FLAME HARDENER)[facility]04-29-2021 NoteHistory of Present Illness: Service: Service: Surgery [...] day. Objective Information: Objective Information: T PRBPSpO2 Value36.51470193/69302% Date/Time02/07 20: 20: 20: 20: 20:16 Range(36.5C [...] the note. I personally evaluated the patient [id number] Comments/ Additional Findings i personally reviewed CTA [...] OnlyCurrent Admission Order. Admit to [facility] Admitting Diagnosis, D18.00 Cavernoma Transfer to, [facility]: [facility] Kaylee TT04 Division Admitting Service, Neurosurgery Level of Care, Stepdown Carmel Miles Electronic Signatures: De (more content not included)...[facility] Plan note No data available for this section [facility] Evaluation + Plan note Future Appointments Appointment Date:07/12/2024 08:00:00 AM Scheduled Provider: Location:[facility] Appointment Type:Surgery FT [facility] Evaluation note* Neurological: [id number],EOMI, FS, TMNo PD R / LUE 5 / 5LE 5 / 5SILT x 4ext grossly [facility]* Diagnosis Aldosteronism (HCC)- Primary Hyperaldosteronism, unspecified Hypertensive heart disease without heart failure Unspecified hypertensive heart disease without heart failure documented in this encounter [facility]* Diagnosis Fatigue, unspecified type- Primary [facility]* Diagnosis Fatigue, unspecified type- Primary documented in this encounter [facility]* Diagnosis Adrenal adenoma, unspecified laterality documented in this encounter [facility] noteNorth doxo Other Evaluation noteNo InformationNort doxo Other Evaluation noteNo assessment information available [facility] Work Phone: Evaluation note* Diagnosis Onset Date Resolution Status Essential (primary) hypertension acute Family history of cerebral hemorrhage acute Headache acute History of subdural hematoma acute Breast pain, right acute History of breast cancer acu te Mastitis in female acute [facility] Work Phone: Evaluation note* Diagnosis Onset Date Resolution Status Essential (primary) hypertension acute Family history of cerebral hemorrhage acute Headache acute History of subdural hematoma acute Breast pain, right acute History of breast cancer acu te Mastitis in female acute Strep pharyngitis noneactive Sore throat noneactive [facility] Work Phone: Evaluation note* Diagnosis Onset Date Resolution Status Essential (primary) hypertension acute Family history of cerebral hemorrhage acute Headache acute History of subdural hematoma acute Breast pain, right acute History of breast cancer acu te Mastitis in female acute Strep pharyngitis noneactive Sore throat noneactive Viral URI noneactive Sore throat noneactive [facility] Work Phone: Evaluation note* Diagnosis 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 documented in this encounter [facility] Work Phone: Evaluation note* Diagnosis Onset [...] Hydronephrosis, right acute Hyperaldosteronism acute Hyperlipidemia acute [id number] acute Hypokalemia acute Hypomagnesemia acute Vitamin B12 deficiency acute Vitamin D deficiency acute [facility] Work Phone: Evaluation note* Diagnosis Onset Date Resolution Status Strep pharyngitis acute Essential (primary) hypertension acute Strep pharyngitis acute Strep pharyngitis acute Sore throat noneactive [facility] Work Phone: Evaluation note* Diagnosis Onset Date Resolution Status Strep pharyngitis acute Essential (primary) hypertension acute Strep pharyngitis acute Strep pharyngitis acute Sore throat noneactive Sore throat noneactive [facility] Work Phone: Evaluation note* Diagnosis Onset Date Resolution Status Strep pharyngitis acute Essential (primary) hypertension acute Strep pharyngitis acute Strep pharyngitis acute Sore throat noneactive Constipation acute Family history of colon cancer in mother acute Situational anxiety acute Acute streptococcal pharyngitis acute Sore throat noneactive Sore throat noneactive [facility] Work Phone: Evaluation note* Diagnosis Onset Date Resolution Status Strep pharyngitis acute Essential (primary) hypertension acute Strep pharyngitis acute Strep pharyngitis acute Sore throat noneactive Constipation acute Family history of colon cancer in mother acute Situational anxiety acute Acute streptococcal pharyngitis acute Sore throat noneactive Allergic rhinitis acute Sore throat noneactive [facility] Work Phone: Evaluation note* Diagnosis Onset Date Resolution Status Strep pharyngitis acute Sore throat noneactive Constipation acute Family history of colon cancer in mother acute Situational anxiety acute Acute streptococcal pharyngitis acute Sore throat noneactive Allergic rhinitis acute Sore throat noneactive Sore throat noneactive [facility] Work Phone: History general Narrative - Reported* Type Description Date Medical History hypercholesterolemia Medical History anxiety Medical History hypertension Medical History OAB Medical History INTRADUCTAL AND INFILTRATING PIPPA ANDI BREAST CANCER Medical History CORNARY ARTERY DISEASE MILD Medical History hypokalemia Medical History Subdural hematoma, [facility] ANTHONY [facility] Surgical History left mastectomy with reconstruc tion Surgical History wisdom teeth extract Surgical History hysterectomy Surgical History cholecystectomy Surgical History colonoscopy Surgical History cardiac heart cath Hospitalization History childbirth Hospitalization History see above sx Hospitalization History BLEEDING ON THE BRAIN [place] [facility]o Other History general [facility] - [facility] Other History general Narrative - Reported* Type Description Date Medical History hypercholesterolemia Medical History anxiety Medical History hypertension Medical History OAB Medical History INTRADUCTAL AND INFILTRATING PIPPA ANDI BREAST CANCER Medical History CORNARY ARTERY DISEASE MILD Medical History hypokalemia Medical History Subdural hematoma, DR ANTHONY [facility] Medical History Hypertension Medical History Hyperlipidemia Medical [...] above sx Hospitalization History BLEEDING ON THE BRAIN [facility] Other Hospital Discharge instructions* Activity:activity as tolerated. [...] and/or calves. * Follow-Up - Neurosurgeon:Physician/Dept/Service: NeurosurgeonDr. Analycheduled Date/Time:05-Mar-2021 11:15Location: [facility]; [address] [place], [place] Number: [phone]: 4 week follow up visit; to have CT scan of Head prior to this appointment; Bring Insurance Card and Photo ID * Follow-Up:Physician/Dept/Service: CAT Scan of HeadScheduled Date/Time: 05-Mar-2021 09:30Location: [facility], Radiology Department, 1st floor Registration; [address] [place], [place] Number: [phone]: arrive 15 minutes early for registration; Bring Insurance Card and Photo ID. You have appointment with Dr Anthony at 11:15, after CT [facility]. [facility] No data available for this section [facility] Progress note No data available for this section [facility] [place] Reason for referral (narrative)* Diagnostic Procedure Only (Routine) - Pending Review Specialty Diagnoses / Procedures Referred By Miguel Ángel t Referred To Contact US IMAGING Diagnoses Fatigue, unspecified type Procedures US RENAL ARTERY/VEIN US RETROPERITONEAL REAL TIME W/IMAGE LIMITED Ashanti Foote MD [address] [place] [address] Us Imaging Referral ID Status Reason Start Date Expiration Date Visits Requested Visits Authorized [id number] Pending Review Auto-Generat ed Referral 01/03/2022 02/02/2023 1 1 [facility] Summary Purpose Family History No Family [...] Course Note MR#: [id number] 2 [facility] Pt. 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 This [place] note. Thank you. Diagnosis 1 Generalized abdomina l pain (R10.84) Referral Organization [facility] ravi Referring Provider First Name Lon Referring Provider Last Name Paul Referring Provider Specialty Family [facility] Referred Organization [facility] Referred Provider Mukesh Fam Referred Address [address] [place] [id number] Referred Provider Specialty Vascular Jeffry maite Referral Priority Routine General Notes Kayla Maldonado [...] disease, stage 3a Hydronephrosis, right Hyperaldosteronism Hyperlipidemia [id number] Hypokalemia Hypomagnesemia Vitamin B12 deficiency Vitamin D deficiency Chief Complaint Sore throat Sore throat RENAL F/U sore throat Reason for Visit Strep pharyngitis Sore throat Viral URI Sore throat Chronic kidney disease, stage 3a Hydronephrosis, right Hyperaldosteronism Hyperlipidemia [id number] Hypokalemia Hypomagnesemia Vitamin B12 deficiency Vitamin D deficiency Strep pharyngitis Chief Complaint Sore throat Sore throat RENAL F/U sore throat sore throat, bp concerns Reason for Visit Strep pharyngitis Sore throat Viral URI Sore throat Chronic kidney disease, stage 3a Hydronephrosis, right Hyperaldosteronism Hyperlipidemia [id number] Hypokalemia Hypomagnesemia Vitamin B12 deficiency Vitamin D deficiency Strep pharyngitis Chief Complaint RENAL F/U sore throat sore throat, bp concerns Sore throat Reason for Visit Chronic kidney disea se, stage 3a Hydronephrosis, right Hyperaldosteronism Hyperlipidemia [id number] Hypokalemia Hypomagnesemia Vitamin B12 deficiency Vitamin D [...] rhinitis Sore throat Sore throat Chief Complaint Admit Date sore throat August 02, 2024 4 :15pm Sore throat J02.9 August 02, 2024 4 :29pm Amb Documentation August 09, 2024 1 :42pm sore throat, chills September 14, 2024 1 :54pm sore throat, waiting in car September 10:46am Reoccuring sore throat September 27 10:56am chest congestion October 20, 2024 10 :47am Reason for Visit Admit Date Sore throat August 02, 2024 4 :15pm Acute streptococcal pharyngitis September 14, 2024 1:54pm Sore throat September 14, 2024 1 :54pm Viral URI 2024 10:46am Sore throat 2024 10:46am Chronic kidney disease, stage 3a Decembe r 2023 10:56am Essential (primary) hypertension Decembe r 2023 10:56am Hyperlipidemia September 27, 2024 10:56am Hypomagnesemia September 27, 2024 10:56am Nicotine dependence, cigarettes, uncompl icated September 27, 2024 10:56am Pharyngitis September 27, 2024 10:56am Recurrent streptococcal pharyngitis Dece mber 2023 10:56am Vitamin B12 deficiency September 27 10:56am Additional Source Comments INFORMATION SOURCE (unrecogn ized section and content) DATE CREATED AUTHOR 02/01/2019 [facility] DATE CREATED AUTHOR AUTHOR'S ORGANIZ ATION 03/11/2021 [facility] DATE CREATED AUTHOR AUTHOR'S ORGANIZ ATION 04/06/2021 [employer] DATE CREATED AUTHOR AUTHOR'S ORGANIZ ATION 04/07/2021 [facility] DATE CREATED AUTHOR AUTHOR'S ORGANIZ ATION 02/13/2022 [facility] DATE CREATED AUTHOR AUTHOR'S ORGANIZ ATION 01/29/2023 [facility] DATE CREATED AUTHOR AUTHOR'S ORGANIZ ATION 02/02/2024 [facility] DATE CREATED AUTHOR AUTHOR'S ORGANIZ ATION 02/22/2024 [facility] DATE CREATED AUTHOR AUTHOR'S ORGANIZ ATION 07/16/2024 [facility] DATE CREATED AUTHOR AUTHOR'S ORGANIZ ATION 07/21/2024 [facility] DATE CREATED AUTHOR AUTHOR'S ORGANIZ ATION 08/09/2024 [facility] DATE CREATED AUTHOR AUTHOR'S ORGANIZ ATION 10/06/2024 [facility] EPIC DATE CREATED AUTHOR AUTHOR'S ORGANIZ ATION 11/08/2024 [facility] <item> Privacy Markings (unrecogniz ed section and content) Section Author: Thomason, Katie PROHIBITION ON REDISCLOSURE OF CONFIDENTIAL INFORMATION This [...] or prosecute any alcohol or drug abuse patient.[facility] CenterIn the event this information is protected by the Federal Confidentiality of Alcohol and Drug Abuse Patient Records regulations: The Federal rules restrict any use of the information to criminally investigate or prosecute any alcohol or drug abuse patient.[facility] CenterIn the event this information is protected by the Federal Confidentiality of Alcohol and Drug Abuse Patient Records regulations: The Federal rules restrict any use of the information to criminally investigate or prosecute any alcohol or drug abuse patient.[facility] CenterIn the event this information is protected by the Federal Confidentiality of Alcohol and Drug Abuse Patient Records regulations: The Federal rules restrict any use of the information to criminally investigate or prosecute any alcohol or drug abuse patient.[facility] CenterIn the event this information is protected by the Federal Confidentiality of Alcohol and Drug Abuse Patient Records regulations: The Federal rules restrict any use of the information to criminally investigate or prosecute any alcohol or drug abuse patient.[facility] CenterIn the event this information is protected by the Federal Confidentiality of Alcohol and Drug Abuse Patient Records regulations: The Federal rules restrict any use of the information to criminally investigate or prosecute any alcohol or drug abuse patient.[facility] CenterIn the event this information is protected by the Federal Confidentiality of Alcohol and Drug Abuse Patient Records regulations: The Federal rules restrict any use of the information to criminally investigate or prosecute any alcohol or drug abuse patient.[facility] Reason for Visit (unrecogniz ed section and content) Reason Comments Consult Reason Comments Received Outside Medical Records Referra l Documents Reason Comments Throat Problem Recurring sore throa t Care Teams (unrecognized sec tion and content) [...] March 08, 2024 End: March 08, 2024 [employer] Relationship Specialty Start Date End Date Lon Miller MD [address] [place] [phone] PCP - General Family Practice 11/21/11 [employer] Relationship Specialty [place] [address] [place] [id number] PCP - General Family Practice 11/21/11 [employer] Pa[employer] Relationship Specialty Start Date End Date Lon Miller MD [address] [facility] [place] [phone] PCP - General Family Practice 11/21/11 [employer] Relationship Specialty Start Date End Date Lon Miller MD [address] [facility] [place] [phone] PCP - General Family Practice 11/21/11 [employer] Relationship Specialty Start Date End Date Lon Miller MD [address] [facility] [place] [phone] PCP - General Family Practice 11/21/11 [employer] Relationship Specialty Start Date End Date Lon Miller MD [address] [facility] [place] [phone] PCP - General Family Practice 11/21/11 [...] January 22, 2024 End: January 22, 2024 Lidia Alarcon NP-C Attending Provider Active S tart: January 22, 2024 End: January 22, 2024 [employer] Relationship Specialty Start Date End Date Lon Miller MD PCP - General 04/02/21 Team Status: Inactive Member Role Status Dates Lon Miller MD Primary Care Provider Active Start: February 04, 2024 End: February 04, 2024 Teresita Ortega APRN Attending Provider Active Start: February 04, 2024 End: February 04, 2024 [employer] Paver Relationship Specialty Start Date End Date Lon Miller MD [address] [place] [address] [place] [address] PCP General 04/02/21 Team Status: Inactive Member Role [...] 2024 End: August 02, 2024 Team Status: Active Member Role Status Dates Mukesh Tellez DO Attending Provider Active Start : August 08, 2024 Team Status: Active Member Role Status Dates Bessie Mccormack CMA Attending Provider Active Start: August 09, 2024 Team Status: Inactive Member Role Status Dates Wendy Chávez , THEA Attending Provider Active S tart: September 14, 2024 End: September 14, 2024 NON STAFF Primary Care Provider Active Start: September 14, 2024 End: September 14, 2024 Team Status: Inactive Member Role Status Dates Wendy Chávez , THEA Attending Provider Active S tart: 2024 End: 2024 Lon Miller MD Primary Care Provider Active Start: 2024 End: 2024 Team Status: Inactive Member Role Status Dates Lon Miller MD Primary Care Provide r, Attending Provider Active Start: September 27, 2024 End: September 27, 2024 Team Status: Active Member Role Status Dates Lon Miller MD Primary Care Provide r, Attending Provider Active Start: September 29, 2024 Team Status: Inactive Member Role Status Dates Lon Miller MD Primary Care Provide r, Attending Provider Active Start: October 20, 2024 End: October 20, 2024 Goals (unrecognized section and content) Goals [...] BE BASED ON THE PRIMARY CLINICAL RECORDS. [employer] provides no warranty or guarantee of the accuracy or completeness of information in this document.
--- NOTE | 2024-12-06 07:00 | NM_ITS ---
Patient Name: SYED CHAVEZ MR#: [id number] : 1950 Exam Date: 12/06/2024 Ordering Doctor: DR ALAINA BARILLAS M.D. RADIOLOGY REPORT PROCEDURE: NM JOAQUIM PERF SPECT REST STR COMPARISON: None. INDICATIONS: CORONARY ARTERY DISEASE TECHNIQUE: Exam Description: Stress/Rest one day protocol gated SPECT Rest Imagin.6 mCi Tc-99m Cardiolite IV on 12/06/2024 Stress Imaging 30.8 mCi Tc-99m Cardiolite IV on 12/06/2024 Exercise Protocol: 0.4 mg Lexiscan given IV Heart Rate (bpm): Rest: 65 Max: 89 PMHR: 60 Blood Pressure: Rest: 154/85 Max: 154/85 Symptoms: No symptoms, high blood pressure Rest and peak stress ECG findings were normal and the exercise portion of the study was normal per attending physician Dr. Núñez . For more details, please see separate cardiac stress test report. FINDINGS: QUALITY OF STUDY: Good PERFUSION DEFECT: LOCATION: Basal septal SIZE: Small SEVERITY: Mild TYPE: Partially reversible and likely representing soft tissue attenuation as well as the membranous septum WALL MOTION: No evidence of wall motion abnormalities LV SIZE: 58 mL. TID / TCD: 0.8 LVEF: Calculated EF 74%. SUMMARY: Myocardial perfusion imaging study CONCLUSION: 1. Myocardial perfusion is normal with soft tissue attenuation 2. Normal global left ventricular systolic function 3. No evidence of transient ischemic dilatation Dictated by: Alaina Barillas M.D. on 12/07/2024 at 14:44 Approved by: Alaina Barillas M.D. on 12/07/2024 at 14:47
[2024-12-06] MEDS: REGADENOSON 0.4 MG/5 ML SYRINGE IV (09:21)
--- NOTE | 2024-12-06 09:21 | PC.NURSE ---
Nursing Note Cardiac Stress Test Reviewed: Medication, allergies and patient history reviewed. Stress Test: [ x] Patient tolerated stress test well. [ ] Patient unable to tolerate walking on treadmill. Switched to Lexiscan stress test. [ x] No chest pain noted per patient [ ] Chest pain that resolved prior to leaving stress lab. [ x] No dyspnea noted. [ ] Dyspnea that resolved prior to leaving stress lab. [ x] Patient left stress lab asymptomatic and hemodynamically stable. [ ] Patient taken to the Emergency Room due to non-resolving symptoms following stress test. [ ] Patient achieved target heart rate. [ ] Patient unable to achieve target heart rate. [ ] Aminophylline administered as reversal agent to Lexiscan (Regadenoson). [ ] Nitro administered. Nursing Comments:Pt had Lexiscan test done. No issues noted. Pt had no CP but had some nausea that mostly resolved by end of test. Pt ambulated to cafeteria for breakfast prior to last set of images. No distress noted at end of exam.
== END 2024-12-06 06:54 | disposition home or self-care (01) ==
LOC: NM 06:53
PROVIDERS: PCP Family Medicine; Visit Provider Internal Medicine Interventional Cardiology
DX: I25.10 Atherosclerotic heart disease of native coronary artery without angina pectoris (principal); I25.83 Coronary atherosclerosis due to lipid rich plaque
CPT/HCPCS: 78452; 93017; A9500; J2785

== ENCOUNTER 2024-12-28 10:27 | Emergency (ER) | payer MEDICARE, OTHER, SELFPAY ==
[2024-12-28 10:30] VITALS: BP 174/96; PULSE 67; TEMP 36.6; O2SAT 99; BMI 18.2
[2024-12-28] MEDS: 0.9 % SODIUM CHLORIDE 500 ML IV (10:50)
[2024-12-28] MEDS: KETOROLAC TROMETHAMINE 30 MG/ML VIAL 15 MG IVP (10:51)
--- NOTE | 2024-12-28 10:58 | ED_ITS ---
HPI HPI - General Adult General Chief complaint: Headache Stated complaint: BURNING HEADACHE Time Seen by Provider: 12/28/24 10:35 Mode of arrival: walk-in History of Present Illness HPI narrative: Patient presents to ED for evaluation of a headache. She states yesterday she started with right parietal area burning and stabbing pain. She said her blood pressure has been elevated in the past couple of days as well although prior to that it has been doing great. She denies nausea vomiting. She does report some anxiety with this because she does have a history of AV malformation. She said her father from an aneurysm as well. She was anxious and stressed about this so she came in for evaluation. No visual changes no speech problems no numbness or tingling no neurological deficit. She said this pain seems pretty consistent. No rash no evidence of shingles in the scalp. No other complaints at this time. She did take some Tylenol without much relief. Related Data Home Medications ?Medication ?Instructions ?Recorded ?Confirmed atorvastatin 80 mg tablet 80 mg PO DAILY 04/11/23 12/28/24 carvedilol 25 mg tablet 25 mg PO BID 04/11/23 12/28/24 hydralazine 50 mg tablet 50 mg PO BID 04/11/23 12/28/24 potassium chloride 20 mEq 20 meq PO QAM 04/11/23 12/28/24 tablet,extended release spironolactone 25 mg tablet 12.5 mg PO DAILY PRN blood pressure 04/11/23 12/28/24 Allergies Allergy/AdvReac Type Severity Reaction Status Date / Time Sulfa (Sulfonamide Allergy Severe Verified 04/11/23 17:50 Antibiotics) Opioid HPI Opioid Management Most Recent Opioid Data: Last Pain Scale 5 12/28/24 10:40 12/28/24 Last DEC Pain Assessment 12/28/24 10:51 Review of Systems ROS Status of ROS 10 or more systems reviewed and unremark able except as noted in history and below PFSH PFSH Medical History (Updated 12/28/24 @ 12:00 by Maria Teresa Putnam DO) Breast cancer ?C50.919 - Malignant neoplasm of unspecified site of unspecified female breast (ICD-10) Hypertension ?I10 - Essential (primary) hypertension (ICD-10) Surgical History (Updated 04/11/23 @ 17:55 by Radha Mcfadden) History of hysterectomy ?Z90.710 - Acquired absence of both cervix and uterus (ICD-10) History of cholecystectomy ?Z90.49 - Acquired absence of other specified parts of digestive tract (ICD- 10) Social History Little interest or pleasure in doing things: not at all Feeling down, depressed, or hopeless: not at all Exam Narrative Exam Narrative: Time Seen: [] Vital Signs: [Per nurse's notes.] General: [Alert] Skin: [Warm, dry, no rash.] No evidence of shingles rash in the right parietal scalp area Head: [Normocephalic, atraumatic.] Neck: [Supple, trachea midline.] Eye: [Pupils are equal, round and reactive to light, extraocular movements are intact, normal conjunctiva.] Ears, nose, mouth and throat: oral mucosa moist. Cardiovascular: [Regular rate and rhythm, no murmur.] Respiratory: [Lungs are clear to auscultation, respirations are non-labored, breath sounds are equal.] Chest wall: [No tenderness, no deformity.] Gastrointestinal: [Soft, nontender, non distended, normal bowel sounds.] MSK: 5 out of 5 muscle strength x 4 extremities no calf pain or edema Lymphatics: [No lymphadenopathy.] Psychiatric: [Cooperative, appropriate mood & affect.] Neurological: [Alert and oriented to person, place, time, and situation, no focal neurological deficit observed.] Constitutional Vital Signs, click to edit/add: Last Vital Signs Temp 97.9 F 12/28/24 10:30 Pulse 68 12/28/24 12:10 Resp 14 12/28/24 12:10 BP 176/90 H 12/28/24 12:10 Pulse Ox 98 12/28/24 12:10 O2 Del Method Room Air 12/28/24 12:10 Course Vital Signs Vital signs: Vital Signs Temperature 97.9 F 12/28/24 10:30 Pulse Rate 67 12/28/24 10:30 Respiratory Rate 18 12/28/24 10:30 Blood Pressure 174/96 H 12/28/24 10:30 Pulse Oximetry 99 12/28/24 10:30 Temperature 97.9 F 12/28/24 10:30 Pulse Rate 68 12/28/24 12:10 Respiratory Rate 14 12/28/24 12:10 Blood Pressure 176/90 H 12/28/24 12:10 Pulse Oximetry 98 12/28/24 12:10 Oxygen Delivery Method Room Air 12/28/24 12:10 Medical Decision Making MDM Narrative Medical decision making narrative: Patient's labs are negative for acute findings. Patient's blood pressure is still slightly elevated. She took her morning medication and she is supposed to take spironolactone if her blood pressure is persistently elevated. She said she thinks the spironolactone drops her blood pressure too much. I told her to try to just take half of her dose and see if that helped. CT brain and CT angio brain were negative for any acute findings. No evidence of intracranial hemorrhage or leakage of any blood vessel. No evidence of stroke. Patient feels slightly better after medication. I did instruct her to watch for signs of potential shingles as she does state this is a burning type of pain. Patient is alert and oriented no acute distress please follow-up with family doctor concerning blood pressure and return to ED if worsening symptoms. Differential Diagnosis Differential Diagnosis: Headache, hypertension, intracranial hemorrhage, aneurysm Medical Records Medical records reviewed: Yes I reviewed the patient's medical records Lab Data Lab results reviewed: Yes I reviewed the patient's lab results Labs: Lab Results 12/28/24 Range/Units 10:48 WBC 4.9 (4.0-11.0) 10^3/uL RBC 4.08 L (4.20-5.40) 10^6/uL Hgb 12.3 (12.0-16.0) g/dL Hct 36.8 (36.0-48.0) % MCV 90.2 (81.0-99.0) fL MCH 30.1 (26.7-34.0) pg MCHC 33.4 (29.9-35.2) g/dL RDW 12.5 (11.0-15.0) % Plt Count 195 (150-450) 10^3/uL MPV 9.8 (9.5-13.5) fL Neut % (Auto) 52.5 (43.0-75.0) % Lymph % (Auto) 33.4 (20.5-60.0) % Hancock % (Auto) 8.8 (1.7-12.0) % Eos % (Auto) 4.3 (0.9-7.0) % Baso % (Auto) 0.8 (0.2-2.0) % Neut # (Auto) 2.6 (1.4-6.5) 10^3/uL Lymph # (Auto) 1.6 (1.2-3.8) 10^3/uL Hancock # (Auto) 0.4 (0.3-0.8) 10^3/uL Eos # (Auto) 0.2 (0.0-0.7) 10^3/uL Baso # (Auto) 0.0 (0.0-0.1) 10^3/uL Abs Immat Gran (auto) 0.01 (0.00-0.03) 10^3/uL Imm/Tot Granulo (auto) 0.2 (0.0-0.5) % Sodium 143 (136-145) mmol/L Potassium 4.0 (3.5-5.1) mmol/L Chloride 107 (98-107) mmol/L Carbon Dioxide 27.6 (21.0-32.0) mmol/L Anion Gap 12.4 BUN 16.0 (7.0-18.0) mg/dL Creatinine 1.02 (0.55-1.02) mg/dL Est GFR ( Amer) >60 (>=60 mL/min/1.73m^2) Est GFR (Non-Af Amer) 53 L (>=60 mL/min/1.73m^2) BUN/Creatinine Ratio 15.7 Glucose 90 (74-106) mg/dL Calcium 9.0 (8.5-10.1) mg/dL Total Bilirubin 0.6 (0.2-1.0) mg/dL AST 22 (15-37) U/L ALT 30 (14-59) U/L Alkaline Phosphatase 68 (46-116) U/L Total Protein 6.7 (6.4-8.2) g/dL Albumin 3.8 (3.4-5.0) g/dL Globulin 2.9 g/dL Albumin/Globulin Ratio 1.[address] scan - head: Attestation: I have reviewed the pertinent imaging results. Discharge Plan Discharge Chief Complaint: Headache Clinical Impression: Hypertension, Headache Patient Disposition: Home, Self-Care Time of Disposition Decision: 12:00 Condition: Good Mode of Transportation: Private Vehicle Prescriptions / Home Meds: No Action atorvastatin 80 mg tablet 80 mg PO DAILY carvedilol 25 mg tablet 25 mg PO BID hydralazine 50 mg tablet 50 mg PO BID potassium chloride 20 mEq tablet extended release 20 meq PO QAM spironolactone 25 mg tablet 12.5 mg PO DAILY PRN (Reason: blood pressure) Print Language: Algerian Instructions: Acute Headache (ED), Hypertension (ED) Referrals: Cele Frost MD [Primary Care Provider] - 1 week Discharge Date/Time: 12/28/24 12:17
[2024-12-28 10:59] LABS: Basophils Percent Auto 0.8 % (0.2-2.0); Eosinophils Absolute Auto 0.2 10^3/uL (0.0-0.7); Eosinophils Percent Auto 4.3 % (0.9-7.0); Hematocrit 36.8 % (36.0-48.0); Hemoglobin 12.3 g/dL (12.0-16.0); Immature Granulocytes Abs Auto 0.01 10^3/uL (0.00-0.03); Immature Granulocytes Pct Auto 0.2 % (0.0-0.5); Lymphocytes Absolute Auto 1.6 10^3/uL (1.2-3.8); Lymphocytes Percent Auto 33.4 % (20.5-60.0); Mean Corpuscular HGB Conc 33.4 g/dL (29.9-35.2); Mean Corpuscular Hemoglobin 30.1 pg (26.7-34.0); Mean Corpuscular Volume 90.2 fL (81.0-99.0); Mean Platelet Volume 9.8 fL (9.5-13.5); Monocytes Absolute Auto 0.4 10^3/uL (0.3-0.8); Monocytes Percent Auto 8.8 % (1.7-12.0); Neutrophils Absolute Auto 2.6 10^3/uL (1.4-6.5); Neutrophils Percent Auto 52.5 % (43.0-75.0); Platelet Count 195 10^3/uL (150-450); Red Blood Count 4.08 10^6/uL (4.20-5.40); Red Cell Distribution Width 12.5 % (11.0-15.0); White Blood Count 4.9 10^3/uL (4.0-11.0)
[2024-12-28 11:11] LABS: Alanine Aminotransferase 30 U/L (14-59); Albumin Globulin Ratio 1.3; Albumin Level 3.8 g/dL (3.4-5.0); Alkaline Phosphatase 68 U/L (46-116); Anion Gap 12.4; Aspartate Amino Transferase 22 U/L (15-37); BUN Creatinine Ratio 15.7; Bilirubin Total 0.6 mg/dL (0.2-1.0); Carbon Dioxide 27.6 mmol/L (21.0-32.0); Chloride 107 mmol/L (98-107); Estimated GFR (African America >60 (>=60 mL/min/1.73m^2); Estimated GFR (Non-African Ame 53 (>=60 mL/min/1.73m^2); Globulin 2.9 g/dL; Glucose 90 mg/dL (74-106); Sodium 143 mmol/L (136-145); Total Protein 6.7 g/dL (6.4-8.2)
[2024-12-28 11:59] VITALS: BP 176/90; PULSE 68; O2SAT 98
[2024-12-28 12:10] VITALS: BP 176/90; PULSE 68; O2SAT 98
== END 2024-12-28 12:17 | disposition home or self-care (01) ==
PROVIDERS: Emergency Provider Emergency Medicine; PCP Family Medicine
DX: R51.9 Headache, unspecified (principal); I10 Essential (primary) hypertension; Z90.710 Acquired absence of both cervix and uterus; Z90.49 Acquired absence of other specified parts of digestive tract
CPT/HCPCS: 36415; 70450; 70496; 80053; 85025; 96374; 99284; J1885; Q9967

== ENCOUNTER 2025-02-01 11:33 | Outpatient (OUT) | payer MEDICARE, OTHER, SELFPAY ==
[2025-02-01 12:27] LABS: Creatinine Urine Random 109.53 mg/dL (20.00-300.00); Protein Creatinine Ratio Urine 0.14; Total Protein Urine Random 15.7 mg/dL (<=11.9)
[2025-02-01 12:31] LABS: Albumin Level 3.9 g/dL (3.4-5.0); Anion Gap 12.1; BUN Creatinine Ratio 16.8; Carbon Dioxide 29.1 mmol/L (21.0-32.0); Chloride 107 mmol/L (98-107); Estimated GFR (African America >60 (>=60 mL/min/1.73m^2); Estimated GFR (Non-African Ame 54 (>=60 mL/min/1.73m^2); Glucose 112 mg/dL (74-106); Magnesium 2.2 mg/dL (1.8-2.4); Phosphorus 3.5 mg/dL (2.6-4.7); Potassium 4.2 mmol/L (3.5-5.1); Sodium 144 mmol/L (136-145)
[2025-02-01 12:32] LABS: Bilirubin Urine NEGATIVE (NEGATIVE); Blood Urine NEGATIVE (NEGATIVE); Clarity Urine CLEAR (CLEAR); Color Urine LT. YELLOW (YELLOW); Glucose Urine UA NEGATIVE (NEGATIVE); Ketones Urine NEGATIVE (NEGATIVE); Leukocyte Esterase Urine TRACE (NEGATIVE); Nitrite Urine NEGATIVE (NEGATIVE); Protein Urine NEGATIVE (NEG/TRACE); Urobilinogen Urine 0.2 EU/dL (0.2-1.0); pH Urine 6.5 (5.0-9.0)
[2025-02-01 12:32] LABS: Hematocrit 38.8 % (36.0-48.0); Hemoglobin 12.5 g/dL (12.0-16.0); Mean Corpuscular HGB Conc 32.2 g/dL (29.9-35.2); Mean Corpuscular Hemoglobin 28.9 pg (26.7-34.0); Mean Corpuscular Volume 89.8 fL (81.0-99.0); Mean Platelet Volume 10.1 fL (9.5-13.5); Platelet Count 187 10^3/uL (150-450); Red Blood Count 4.32 10^6/uL (4.20-5.40); Red Cell Distribution Width 12.6 % (11.0-15.0); White Blood Count 4.7 10^3/uL (4.0-11.0)
[2025-02-02 03:07] LABS: Vitamin B12 800 pg/mL (232-1245)
== END 2025-02-01 11:34 | disposition home or self-care (01) ==
LOC: LAB 11:38
PROVIDERS: PCP Family Medicine; Visit Provider Internal Medicine Nephrology
DX: E53.8 Deficiency of other specified B group vitamins (principal); E78.5 Hyperlipidemia, unspecified; N13.30 Unspecified hydronephrosis; E87.6 Hypokalemia; E55.9 Vitamin D deficiency, unspecified
CPT/HCPCS: 36415; 80069; 81003; 82306; 82570; 82607; 82746; 83735; 84156; 85027